=== PATIENT | male | born 1990 ===

== ENCOUNTER 2023-07-10 20:11 | Outpatient (BNV) | payer OTHER, SELFPAY | END 2023-07-30 14:06 | PROVIDERS: Admitting Provider Psychiatry & Neurology Psychiatry; Visit Provider Internal Medicine | DX: I45.89 Other specified conduction disorders (principal) | CPT/HCPCS: 93010 ==

== ENCOUNTER 2023-07-10 20:11 | Inpatient (IN) | payer OTHER, SELFPAY ==
--- NOTE | ~2023-07-10 | US_ITS ---
EXAMINATION: US VENOUS ULTRASOUND WITH DOPPLER LOWER EXTREMITY, LEFT CLINICAL INFORMATION: Swelling/erythema. COMPARISON: None available. TECHNIQUE: Ultrasound of the deep veins is performed from the hip to the calf with compression sonography and color and pulse Doppler assessment. Spectral analysis with color-flow imaging is performed. FINDINGS: There is normal venous compression and respiratory variation and augmented flow. The visualized left common femoral vein, superficial femoral vein, profunda femoral vein, popliteal vein, and the trifurcation region shows no evidence of deep venous thrombosis. There is no significant popliteal fossa cyst. Significantly enlarged lymph nodes in the left inguinal region with thickened cortex, for example a quite large nodule measuring 1.6 x 4.2 cm. If the patient's symptoms persist, followup ultrasound in 5 days 7 days might be of value to exclude proximal propagation from a non-visualized calf vein. US/US venous duplex LE IMPRESSION: 1. No DVT demonstrated in the left lower extremity. 2. Significantly enlarged abnormal lymph nodes in the left inguinal region, nonspecific but most likely infectious/inflammatory in view of patient's age. Recommend clinical correlation to determine if tissue sampling is warranted. Otherwise, short-term follow-up ultrasound is recommended.
--- NOTE | ~2023-07-10 | XR_ITS ---
EXAMINATION: XR foot LT 2V, XR foot RT 2V CLINICAL INFORMATION: Wound right great toe metatarsal phalangeal joint question osteomyelitis, wound left great toe/metatarsal phalangeal joint, question osteomyelitis. COMPARISON: None. TECHNIQUE: 3 view series right foot; 3 view series left foot FINDINGS: Right foot: Soft tissue tissue prominence of the hallux concentric about the interphalangeal joint is noted. No soft tissue emphysematous changes visualized. No arthropathic changes noted. No dystrophic calcifications identified. Normal bone mineralization. A 1 mm curvilinear density is noted in the region of the dorsal aspect of the first distal phalanx which may represent an overlying or embedded foreign body. Left foot: Soft tissue prominence of the hallux is noted. No erosive osseous lesions or soft tissue emphysematous changes noted. No arthropathic changes visualized. No fractures noted. Normal bone mineralization. XR/XR foot LT 2V IMPRESSION: RIGHT FOOT: 1. Soft tissue prominence of the hallux concentric about the interphalangeal joint which may represent a soft tissue inflammatory changes. No soft tissue emphysematous changes or erosive osseous lesions to suggest osteomyelitis. 2. Single 1 mm curvilinear density in the region of the dorsal aspect of the first distal phalanx which may represent an overlying or embedded foreign body. LEFT FOOT: 1. Soft tissue prominence of the hallux which may represent acute inflammatory changes. No evidence of osteomyelitis.
--- NOTE | ~2023-07-10 | XR_ITS ---
EXAMINATION: XR foot LT 2V, XR foot RT 2V CLINICAL INFORMATION: Wound right great toe metatarsal phalangeal joint question osteomyelitis, wound left great toe/metatarsal phalangeal joint, question osteomyelitis. COMPARISON: None. TECHNIQUE: 3 view series right foot; 3 view series left foot FINDINGS: Right foot: Soft tissue tissue prominence of the hallux concentric about the interphalangeal joint is noted. No soft tissue emphysematous changes visualized. No arthropathic changes noted. No dystrophic calcifications identified. Normal bone mineralization. A 1 mm curvilinear density is noted in the region of the dorsal aspect of the first distal phalanx which may represent an overlying or embedded foreign body. Left foot: Soft tissue prominence of the hallux is noted. No erosive osseous lesions or soft tissue emphysematous changes noted. No arthropathic changes visualized. No fractures noted. Normal bone mineralization. XR/XR foot RT 2V IMPRESSION: RIGHT FOOT: 1. Soft tissue prominence of the hallux concentric about the interphalangeal joint which may represent a soft tissue inflammatory changes. No soft tissue emphysematous changes or erosive osseous lesions to suggest osteomyelitis. 2. Single 1 mm curvilinear density in the region of the dorsal aspect of the first distal phalanx which may represent an overlying or embedded foreign body. LEFT FOOT: 1. Soft tissue prominence of the hallux which may represent acute inflammatory changes. No evidence of osteomyelitis.
--- NOTE | ~2023-07-10 | MR_ITS ---
EXAMINATION: MRI WITHOUT CONTRAST FOOT, LEFT CLINICAL INFORMATION: Chronic wound, cellulitis. Evaluate for osteomyelitis. COMPARISON: Radiographs 08/25/2023 TECHNIQUE: MRI without contrast is performed on the left foot FINDINGS: Probable shallow soft tissue ulcers at the dorsal aspect of the great toe overlying the proximal phalanx, and the plantar/medial aspect of the great toe distally with underlying intermediate signal of the subcutaneous fat which may represent chronic cellulitis. No focal fluid collection to indicate an abscess. There is mild marrow edema of the 1st distal phalanx, most prominent at the tuft, where there is also loss of T1 fatty marrow signal which is suspicious for osteomyelitis. There is mild marrow edema at the lateral aspect of the 5th metatarsal head which is more likely degenerative or reactive. Similarly, mild marrow edema at the proximal aspect of the 2nd metatarsal is likely degenerative or stress related. Mild diffuse subcutaneous edema. MR/MR foot LT wo con IMPRESSION: 1. Findings suspicious for osteomyelitis of the 1st distal phalanx, most prominent at the tuft. 2. Probable shallow soft tissue ulcers at the dorsal aspect of the great toe and plantar/medial aspect of the distal great toe with underlying cellulitis. No abscess. 3. Mild marrow edema at the proximal aspect of the 2nd and 5th metatarsals is likely degenerative or stress related.
--- NOTE | ~2023-07-10 | XR_ITS ---
EXAMINATION: XR FOOT, LEFT CLINICAL INFORMATION: Cellulitis and chronic wound. Evaluate for osteomyelitis. COMPARISON: Previous x-ray July 2023 TECHNIQUE: AP, lateral, and oblique views of the left foot. FINDINGS: Bone alignment is normal. No fracture or dislocation. No x-ray evidence of osteomyelitis. Mild degenerative changes of the second MTP joint. Soft tissue swelling of the great toe. XR/XR foot LT 2V IMPRESSION: No x-ray evidence of osteomyelitis. Soft tissue swelling of the great toe. Mild degenerative changes of the second MTP joint.
[2023-07-10 22:00] VITALS: BMI 21.3
[2023-07-11] MEDS: Nicotine Polacrilex 2 MG GUM BUCCAL ×8 (01:10→23:49)
--- NOTE | 2023-07-11 01:12 | PC.ADMIT ---
Patient is a 32 year old single Indonesian speaking male admitted as a Section 12B to M5 at 203907/10/23. Patient was medically cleared at [facility] ED after he presented to the emergency department expressing SI with a plan to jump off a bridge. Patient said he had run out of medication and his depression had increased. According to the assessment patient was noted to be restless, walking around at [facility] ED stating he did not want to live and if he was discharged would carry out his plan of jumping off a bridge. The assessment also mentioned that patient reported he has been inpatient as a psychiatric patient in the past but was unable to provide details. The behavioral health intake noted an APTU admission in 2022 but did not list the date. The patient has a history of substance abuse and is currently on methadone through the [facility]. [facility] ED verified his Methadone. The patient's record did not indicate any other current medications. No medical issues were noted and patient has no allergies. Although patient was offered a CV to sign he declined. Patient was guarded and dismissive during the admission process and did not want to answer questions or sign legals. Safety tool needs to be done and signed and the legals also need to be signed. Dr. Keane aware of admission and orders were put in.
--- NOTE | 2023-07-11 01:24 | W.ED.CONSULT ---
Consult Details Consult Details: I was asked to sign 12b on patient after he arrived from outside facility. patient was previously medically cleared though he refused outside labs so baseline labs were not done. he was accepted here as inpatient psychiatry. I spoke to him about his involuntary status and why he didn't want to sign and he states he didn't want to sign it and that he understood what it meant. He was able to repeat the conversation back to me. GCS 15, no neurological deficits. He was calm and cooperative on the EMS stretcher. 12b was signed by me and placed on the chart
--- NOTE | 2023-07-11 09:38 | P.HPPS_ITS ---
HPI Date of Service: 07/11/23 Chief Complaint: SI Sources of Information: patient interviewed, chart reviewed and crisis/core team assessment reviewed HPI Subjective Notes: Spencer Warning and Conditional Voluntary Healthcare Proxy: No Guardianship: No Medical Problems Affecting Mental Status: No Narrative: Car is a 32-year-old white, single, unemployed man who lives with his mother. He is seen and interviewed the day after his admission. He self presented to the emergency room after encouraged by family members because of suicidal ideations and plans to jump off of a bridge. He was recently hospitalized at [facility] and discharged on gabapentin 400 mg t.i.d., Klonopin 0.5 mg b.i.d. and he is on methadone 85 mg daily. We need to verify these medications. He is a relatively poor historian, not being able to give accurate information with regards to specifics and chronology of events. He has been hospitalized twice previously and then this 1. He has never been on this unit. He does have history of opiate dependence, heroin both snorting and IV use, pills and has been on methadone for a few years but can not say specifically. He gets it at the [facility] methadone clinic. He has had suicide attempts in the past, laying on railroad tracks but changing his mind at the end, several overdoses. He cannot tell me the time and the actual events. He reports auditory hallucinations, paranoid ideations. I could not gather an of reliable information as to whether he has had any hypomanic episodes. Tox screen was clean Past Psychiatric History: Two prior hospitalizations. No outpatient connections. Medical Evaluation Reviewed: Hospitalist Jalynal Pending [facility] Medical History (Updated 07/11/23 @ 09:47 by Abdirahman Page MD) Opiate dependence Narrative: No active disease Substance History: Heroin and opiates, on methadone for several years Trauma History: None reported Diagnostics Vital Signs (24Hr): BMI result Body Mass Index 21.3 Meds/Allergies Allergies Allergies Allergy/AdvReac Type Severity Reaction Status Date / Time No Known Allergies Allergy Verified 07/11/23 00:58 Assessment & Plan Assessment & Plan (1) Schizoaffective disorder, chronic condition: Status: Acute Code(s): F25.9 - Schizoaffective disorder, unspecified Plan In conclusion Car meets criteria for inpatient level of care for safety and stabilization. Current medications will be verified and ordered. He will need with his treatment team on 07/13/2023. Outpatient referrals to be made Patient educated on: diagnosis, medication risk/benefits and substance abuse Reason for continued inpatient stay Substantial Risk for: harm to self and med/psych decompensation Statement Statement: I have reviewed the history and physical and performed a pertinent examination on my patient. No changes have occurred unless specified. If the History and Physical was not performed prior to admission, the Hospitalist's service will be consulted for completing the admission physical. Time Spent With Patient Time: Total time managing care of this patient today ____ minutes.
--- NOTE | 2023-07-11 11:43 | HE.PHANOTE ---
RE METHADONE PATIENT GETS 85 MG FROM [facility], LAST DOSED 07/09. PATIENT ALSO GOT DOSE ON 07/10 FROM [facility]
[2023-07-11] MEDS: clonazePAM 0.5 MG TABLET PO (11:44)
[2023-07-11] MEDS: methADONE HCl 20 MG/2 ML ORAL.CONC 85 MG PO (11:44)
--- NOTE | 2023-07-11 14:33 | HO.PM.IMCN ---
History of Present Illness Data of Consult Service Date: 07/11/23 Requesting physician: Bry Keane Primary Care Provider: Unknown Physician HPI Reason for consult: medical h&p 32-year-old male with history of anxiety, depression, opioid dependence on methadone, peripheral neuropathy, history of IV drug abuse in remission admitted to Psychiatry with consult placed hospitalist service for medical H and P. While in the ED, U tox negative, urinalysis negative. He is reporting painful neuropathy in the feet bilaterally. States last IV drug abuse was about 8 months ago, has been maintaining sobriety with methadone. He also has a wound to the dorsal aspect of the right great toe/MTP joint. He is unable to tell me how long the wound has been present for. There is also a callous on the left great toe. He states he feels like there are maggots in his skin crawling around. He otherwise does not offer much history and states the exam is making him anxious. Review of Systems Review of Systems: General: No fevers, malaise, unintentional weight loss HEENT: No blurred vision, diplopia. No sore throat, nasal congestion, rhinorrhea, sinus pain, ear pain Cardiovascular: No chest pain, palpitations, or leg edema Respiratory: No shortness of breath, wheezing, cough GI: No abdominal pain, nausea, vomiting, diarrhea, constipation, melena, hematochezia : No dysuria, hematuria, increased urinary frequency, decreased urinary output MSK: No myalgia, back pain Neuro: No headaches, weakness, paresthesias Skin: No rashes. +wounds b/l feet PMFSH Medical History (Updated 07/11/23 @ 14:44 by JERRELL Griffiths) Peripheral neuropathy History of intravenous drug abuse Opiate dependence Social History Household Members: Unknown / Unable to assess Housing: Unknown / Unable to assess Do you presently have visiting nurse or other home services: No Unable to assess alcohol history related to: Refusing to respond Patient Tobacco Use Status: Current everyday Tobacco user Tobacco use type: Cigarette Cigarette Packs Per Day: 1 Cigarettes Per Day: 20.0 Years Smoked: 15 Smoked in Last 30 Days: Yes Patient Interested in Nicotine Replacement: Yes Patient Given Instructions on How to Stop Smoking: Yes Date Education Initiated: 07/10/23 Second Hand Smoke Exposure: No Use of substances other than those prescribed or required for medical reasons: Refusing to respond Last Used Substance Other:: pt is currently on Methadone Currently Displaying Signs/Symptoms of Drug Intoxication Withdrawal: No Any prior treatment program specific to substance use: Yes (per patient assessment) Spiritual Healthcare Practices: unknown Zoroastrianism Healthcare Practices: unknown Cultural Healthcare Practices: unknown Advance Directives: No Advance Directives Information Provided: No Do you have thoughts of harming others: None Do you have a plan to hurt others: No Plan Recently lost weight without trying: No Eating poorly because of decreased appetite: No Nutrition Risks: No Nutritional Risk Meds Allergies Allergy/AdvReac Type Severity Reaction Status Date / Time No Known Allergies Allergy Verified 07/11/23 00:58 Active Medications: Current Medications Acetaminophen (Acetaminophen 325 Mg Tablet) 650 mg PO Q6H PRN PRN Reason: Headache/Pain Mild Scale (1-3) Al Hydroxide/Mg Hydroxide (Magnesium Hydrox/Alum Hydrox 30 Ml Oral.Susp) 30 ml PO Q6H PRN PRN Reason: Heartburn/Nausea Clonazepam (Clonazepam 0.5 Mg Tablet) 0.5 mg PO DAILY [facility] Last Admin: 07/11/23 11:44 Dose: 0.5 mg Gabapentin (Gabapentin 400 Mg Capsule) 400 mg PO TID [facility] Hydroxyzine HCl (Hydroxyzine Hcl 25 Mg Tablet) 25 mg PO Q6H PRN PRN Reason: Anxiety Magnesium Hydroxide (Milk Of Magnesia 30 Ml Oral.Susp) 30 ml PO DAILY PRN PRN Reason: Constipation Melatonin (Melatonin 3 Mg Tablet) 6 mg PO BEDTIME PRN PRN Reason: Insomnia Methadone HCl (Methadone Hcl 20 Mg/2 Ml Oral.Conc) 85 mg PO DAILY ONE Stop: 07/12/23 08:01 Nicotine Polacrilex (Nicotine Polacrilex 2 Mg Gum) 2 mg BUCCAL Q2H PRN PRN Reason: Nicotine Cravings Last Admin: 07/11/23 13:53 Dose: 2 mg Trazodone HCl (Trazodone Hcl 50 Mg Tablet) 50 mg PO BEDTIME MRX1 PRN PRN Reason: Insomnia Home Medications Medication Instructions Recorded Confirmed Last Taken Type clonazepam 0.5 mg tablet (Klonopin) 0.5 mg PO DAILY 07/11/23 07/11/23 Unknown History gabapentin 400 mg capsule 400 mg PO TID 07/11/23 07/11/23 Unknown History melatonin 5 mg tablet 5 mg PO BEDTIME 07/11/23 07/11/23 Unknown History Physical Exam Vital Signs and Narrative: Vital Signs: BMI result Body Mass Index 21.3 Constitutional - Awake and Alert, No apparent distress Eyes - PERRLA, EOMI Cardiovascular - S1S2, RRR, No edema Respiratory - Normal lung expansion, Normal respiratory effort, No respiratory distress, CTA bilaterally Gastrointestinal - NT / ND; +BS; No rebound or guarding Extremities - no calf tenderness bilaterally, no swelling Musculoskeletal - Normal inspection, normal ROM Skin - Warm/Dry. R foot- stage 2 ulcer dorsal aspect right great toe/mtp with surrounding erythema and warmth. No fluctuance, purulent drainage, necrosis. Callous left great toe Neurological - Alert & oriented x3, CN II-XII in tact, 12/05 strength BUE and BLE Assessment and Plan (1) Routine medical exam: Status: Acute (2) Cellulitis of great toe, left: Status: Acute (3) Skin ulcer of left great toe: Status: Acute Plan 32-year-old male with history of anxiety, depression, opioid dependence on methadone, peripheral neuropathy, history of IV drug abuse in remission admitted to Psychiatry with consult placed hospitalist service for medical H and P. 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 Will continue following for results. Please do not hesitate to call for further questions or for any acute medical issues.
[2023-07-11] MEDS: Gabapentin 400 MG CAPSULE PO ×2 (15:18→20:15)
[2023-07-11] MEDS: Doxycycline Monohydrate 100 MG CAPSULE PO (15:18)
[2023-07-11] MEDS: Amoxicillin/Potassium Clav 875 MG TABLET PO (16:38)
--- NOTE | 2023-07-11 18:15 | PC.NURSE ---
Phlebotomy came to the unit twice and Car refused to have labs drawn both times.
[2023-07-12 08:39] VITALS: BP 127/63; PULSE 105; TEMP 36.5; O2SAT 100
[2023-07-12] MEDS: methADONE HCl 20 MG/2 ML ORAL.CONC 85 MG PO (08:46)
[2023-07-12] MEDS: Gabapentin 400 MG CAPSULE PO ×3 (08:47→20:53)
[2023-07-12] MEDS: Amoxicillin/Potassium Clav 875 MG TABLET PO ×2 (08:47→20:53)
[2023-07-12] MEDS: clonazePAM 0.5 MG TABLET PO (08:47)
[2023-07-12] MEDS: Doxycycline Monohydrate 100 MG CAPSULE PO ×2 (08:47→20:54)
[2023-07-12] MEDS: Nicotine Polacrilex 2 MG GUM BUCCAL ×8 (08:47→23:18)
--- NOTE | 2023-07-12 10:06 | HO.PSYCHPN ---
Subjective Subjective Date of Service: 07/12/23 Reason For Visit: SI Subjective Notes: Conditional Voluntary Healthcare Proxy: No Guardianship: No Medical Problems Affecting Mental Status: No Interim History: Patient was seen and discussed in rounds today. Records and plans were reviewed. He has settled in well and has been doing better. Eating and sleeping adequately. He is medication compliant. He denies any side effects. No SI. No changes were made today Medication Compliance: Yes Side effects from medications: No Attending Groups: Yes Review of Systems Review of Systems Yes all other systems are reviewed and are negative Mental Status Exam Mental Status Exam Narrative: In today's visit he is alert, oriented and pleasant. Normal speech. Good eye contact. Affect is appropriate and constricted. No auditory or visual hallucinations. No delusions. He denies any SI. Cognitively is intact. Judgment is intact Diagnostics Vital Signs (24Hr): Vital Signs - 24 hr 07/12/23 08:39 Temperature 97.7 F Pulse Rate 105 H Blood Pressure 127/63 Pulse Oximetry 100 Oxygen Delivery Method Room Air BMI result Body Mass Index 21.3 Imaging Radiology Impressions: ITS Impressions Foot X-Ray 07/11/23 16:21 IMPRESSION: RIGHT FOOT: 1. Soft tissue prominence of the hallux concentric about the interphalangeal joint which may represent a soft tissue inflammatory changes. No soft tissue emphysematous changes or erosive osseous lesions to suggest osteomyelitis. 2. Single 1 mm curvilinear density in the region of the dorsal aspect of the first distal phalanx which may represent an overlying or embedded foreign body. LEFT FOOT: 1. Soft tissue prominence of the hallux which may represent acute inflammatory changes. No evidence of osteomyelitis. Foot X-Ray 07/11/23 16:21 IMPRESSION: RIGHT FOOT: 1. Soft tissue prominence of the hallux concentric about the interphalangeal joint which may represent a soft tissue inflammatory changes. No soft tissue emphysematous changes or erosive osseous lesions to suggest osteomyelitis. 2. Single 1 mm curvilinear density in the region of the dorsal aspect of the first distal phalanx which may represent an overlying or embedded foreign body. LEFT FOOT: 1. Soft tissue prominence of the hallux which may represent acute inflammatory changes. No evidence of osteomyelitis. Medications Medications Current Medications Acetaminophen (Acetaminophen 325 Mg Tablet) 650 mg PO Q6H PRN PRN Reason: Headache/Pain Mild Scale (1-3) Al Hydroxide/Mg Hydroxide (Magnesium Hydrox/Alum Hydrox 30 Ml Oral.Susp) 30 ml PO Q6H PRN PRN Reason: Heartburn/Nausea Amoxicillin/Clavulanate Potassium (Amoxicillin/Potassium Clav 875 Mg Tablet) 875 mg PO Q12H [facility] Last Admin: 07/12/23 08:47 Dose: 875 mg Clonazepam (Clonazepam 0.5 Mg Tablet) 0.5 mg PO DAILY [facility] Last Admin: 07/12/23 08:47 Dose: 0.5 mg Doxycycline Monohydrate (Doxycycline Monohydrate 100 Mg Capsule) 100 mg PO Q12H [facility] Last Admin: 07/12/23 08:47 Dose: 100 mg Gabapentin (Gabapentin 400 Mg Capsule) 400 mg PO TID [facility] Last Admin: 07/12/23 08:47 Dose: 400 mg Hydroxyzine HCl (Hydroxyzine Hcl 25 Mg Tablet) 25 mg PO Q6H PRN PRN Reason: Anxiety Magnesium Hydroxide (Milk Of Magnesia 30 Ml Oral.Susp) 30 ml PO DAILY PRN PRN Reason: Constipation Melatonin (Melatonin 3 Mg Tablet) 6 mg PO BEDTIME PRN PRN Reason: Insomnia Nicotine Polacrilex (Nicotine Polacrilex 2 Mg Gum) 2 mg BUCCAL Q2H PRN PRN Reason: Nicotine Cravings Last Admin: 07/12/23 08:47 Dose: 2 mg Trazodone HCl (Trazodone Hcl 50 Mg Tablet) 50 mg PO BEDTIME MRX1 PRN PRN Reason: Insomnia Allergies Allergies Allergy/AdvReac Type Severity Reaction Status Date / Time No Known Allergies Allergy Verified 07/11/23 00:58 Assessment & Plan Assessment & Plan (1) Routine medical exam: Status: Acute Code(s): Z00.00 - Encounter for general adult medical examination without abnormal findings (2) Cellulitis of great toe, left: Status: Acute Code(s): L03.032 - Cellulitis of left toe (3) Skin ulcer of left great toe: Status: Acute Code(s): L97.529 - Non-pressure chronic ulcer of other part of left foot with unspecified severity Plan 32-year-old male with history of anxiety, depression, opioid dependence on methadone, peripheral neuropathy, history of IV drug abuse in remission admitted to Psychiatry with consult placed hospitalist service for medical H and P. #Mood/psychotic d/o -plan per psychiatry #Stage 2 non-pressure ulcer R great toe with cellulitis -XRay left foot ordered to r/o osteomyelitis -CRP, ESR, CBC ordered -Augmentin 875mg BID and doxycycline 100mg BID x 1 week -still operator whiskey consult -Dressing changes as ordered #Callous R Great toe -check xr left foot r/o osteomyelitis- low suspicion -medical assistant internal medicine #opioid dependence -continue methadone #peripheral neuropathy -continue gabapentin Thank you for allowing me to participate in this consult. Will continue following for results. Please do not hesitate to call for further questions or for any acute medical issues. 07/12: Continue current regimen plans. Reason for continued inpatient stay Substantial Risk for: med/psych decompensation Time Spent With Patient Time: Total time managing care of this patient today ____ minutes.
--- NOTE | 2023-07-12 11:56 | PC.NURSE ---
Car refused lab draw x4 and was given education related to lab draw.
[2023-07-12 18:00] VITALS: BP 102/68; PULSE 101; TEMP 36.4; O2SAT 97
[2023-07-13] MEDS: Nicotine Polacrilex 2 MG GUM BUCCAL ×7 (04:23→21:36)
[2023-07-13 08:30] VITALS: BP 104/70; PULSE 110; RESP 18; TEMP 36.4; O2SAT 98
[2023-07-13] MEDS: Gabapentin 400 MG CAPSULE PO ×3 (09:03→21:35)
[2023-07-13] MEDS: clonazePAM 0.5 MG TABLET PO (09:03)
[2023-07-13] MEDS: Amoxicillin/Potassium Clav 875 MG TABLET PO ×2 (09:03→21:35)
[2023-07-13] MEDS: Doxycycline Monohydrate 100 MG CAPSULE PO ×2 (09:03→21:35)
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
[2023-07-13] MEDS: methADONE HCl 20 MG/2 ML ORAL.CONC 85 MG PO (10:02)
--- NOTE | 2023-07-13 12:45 | PC.NURSE ---
Addendum entered by Cece Grissom RN 07/13/23 12:48: Recommending Durafiber silver - changed from zeroform petroleum due to moisture presence.- Supplies are in PT specific bin in Med room. Addendum entered by Cece Grissom RN 07/13/23 12:46: early head start director saw pt and evaluated and redressed his wounds. Recommending Kirsten Original Note: early head start director saw patient and evaluated and redressed his wounds. Reccome
--- NOTE | 2023-07-13 13:32 | HO.WOUND ---
Wound Consult: Initial 32yr old male admitted to [facility] on?07/10/23 20:11 to the Inpatient Behavioral Health Unit - See progress notes and H&P for detailed history. Wound consult placed for Left Great Toe wound and Right Great Toe. Patient is agreeable to assessment and photo documentation. He reports he is unclear as to how the wounds originated but reports he believes wearing the same shoes and not being able to take care of them is impacting wound development. The patient reports neuropathy to both feet at times. At time of discharge consider referral to outpt wound clinic and or Podiatry. Left Great Toe wound Left Great Toe - Posterior Wound Right Great Toe Callus Left Great Toe Etiology: Neuropathic Wound Measurements: Dorsal Wound - 1.5cm x 1cm x 0.1cm - pink moist partial thickness tissue loss - dried drainage noted to periwound Posterior Wound 0.5cm x 0.3cm x 0.4cm - red moist wound bed - dried drainage to periwound along with callused edges Drainage / Odor: dried serosang drainage - no purulence noted - no odor noted Edges: ?well defined Natalie wound: ?Callused wound edge - No Induration, Fluctuance or Warmth noted Pain: Pt reports mild tenderness - reports neuropathy - refer to Outpt Wound Clinic or Podiatry at time of Discharge Goals of Treatment: ? Moisture Management with Durafiber Right foot assessed - no injury noted - great toe medial side with callus - no fluctuance noted no erythema no warmth noted - No topical interventions needed at this time. consider Podiatry referral at time of discharge for nail care and callus management. Recommendations: 1. Turn and Reposition every 2 hours and as needed for patient comfort. 2. Off Load all bony prominences with use of pillows and heel boots if needed.? Apply Preventative foams where needed. ? 3. Monitor for incontinence and moisture control, use barrier creams when needed for prevention and treatment. 4. Provide adequate and supplemental nutrition. 5. Order or Continue low air loss mattress. 6. Left Great Toe - Cleanse with NS, pat dry. Apply Skin Prep barrier wipe to periwound - cover wound beds with Alginate AG (Durafiber AG), cover with foam dressing. Change Daily. Re-consult wound care Nurse for wound deterioration or wound changes.
[2023-07-13 18:00] VITALS: BP 112/78; PULSE 100; RESP 20; TEMP 36.6; O2SAT 99
[2023-07-13] MEDS: Nicotine Polacrilex 2 MG GUM 4 MG BUCCAL (23:06)
[2023-07-14] MEDS: Nicotine Polacrilex 2 MG GUM BUCCAL (08:28)
[2023-07-14] MEDS: clonazePAM 0.5 MG TABLET PO (08:28)
[2023-07-14] MEDS: Gabapentin 400 MG CAPSULE PO ×3 (08:28→21:13)
[2023-07-14] MEDS: Doxycycline Monohydrate 100 MG CAPSULE PO ×2 (08:28→21:13)
[2023-07-14] MEDS: Amoxicillin/Potassium Clav 875 MG TABLET PO ×2 (08:29→21:13)
[2023-07-14] MEDS: methADONE HCl 20 MG/2 ML ORAL.CONC 85 MG PO (08:29)
[2023-07-14 08:33] VITALS: BP 112/74; PULSE 101; RESP 18; TEMP 36.6; O2SAT 98
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
[2023-07-14] MEDS: Nicotine Polacrilex 2 MG GUM 4 MG BUCCAL ×4 (13:40→22:33)
[2023-07-15] MEDS: Amoxicillin/Potassium Clav 875 MG TABLET PO ×2 (08:07→20:50)
[2023-07-15] MEDS: Gabapentin 400 MG CAPSULE PO ×3 (08:07→20:50)
[2023-07-15] MEDS: clonazePAM 0.5 MG TABLET PO (08:07)
[2023-07-15] MEDS: Doxycycline Monohydrate 100 MG CAPSULE PO ×2 (08:07→20:50)
[2023-07-15] MEDS: methADONE HCl 20 MG/2 ML ORAL.CONC 85 MG PO (08:08)
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
[2023-07-15] MEDS: Nicotine Polacrilex 2 MG GUM 4 MG BUCCAL ×5 (10:43→20:50)
[2023-07-16 07:00] VITALS: BMI 20.4
[2023-07-16] MEDS: Nicotine Polacrilex 2 MG GUM 4 MG BUCCAL ×6 (07:50→22:52)
[2023-07-16] MEDS: methADONE HCl 20 MG/2 ML ORAL.CONC 85 MG PO (08:22)
[2023-07-16] MEDS: Gabapentin 400 MG CAPSULE PO ×3 (08:22→22:47)
[2023-07-16] MEDS: Doxycycline Monohydrate 100 MG CAPSULE PO ×2 (08:22→22:47)
[2023-07-16] MEDS: Amoxicillin/Potassium Clav 875 MG TABLET PO ×2 (08:22→22:47)
[2023-07-16] MEDS: clonazePAM 0.5 MG TABLET PO ×3 (08:22→20:27)
[2023-07-16 08:40] VITALS: RESP 16
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
--- NOTE | 2023-07-16 13:39 | HO.WOUND ---
Wound Consult: Follow up 32yr old male admitted to [facility] on?07/10/23 20:11 to the Inpatient Behavioral Health Unit - See progress notes and H&P for detailed history. Follow up wound request from Dr. Dey for assessment secondary to direct care team wound concerns. Direct care team reported darkening of wound bed . Original Wound consult placed for Left Great Toe wound and Right Great Toe. Patient is agreeable to assessment and photo documentation. He reports he is unclear as to how the wounds originated but reports he believes wearing the same shoes and not being able to take care of them is impacting wound development. The patient reports neuropathy to both feet at times. At time of discharge consider referral to outpt wound clinic and or Podiatry. Left Great Toe wound 07/13/23 Left great toe wound 07/16/ Left Great Toe - Posterior Wound 07/13/23 Left Great Toe - Posterior Wound 07/16/23 Right Great Toe Callus 07/13/23 Right Great Toe Callus 07/16/23 Right Great toe unchanged - no topical interventions needed at this time. Continue to recommend Podiatry follow up outpatient for callus removal. Pt demonstrated understanding. Left Great Toe Etiology: Neuropathic Wound Measurements: Dorsal Wound - 1.5cm x 1cm x 0.1cm - red pink moist partial thickness tissue loss wound bed appears improved viability - periwound remains blanchable erythema decrease in swelling noted. Posterior Wound 0.6cm x 0.4cm x 0.4cm - pink moist wound bed - macerated edges and callused edges Drainage / Odor: serosang drainage - no purulence noted - no odor noted Edges: ?well defined Natalie wound: ?Callused wound edge - No Induration, Fluctuance or Warmth noted Pain: Pt reports mild tenderness - reports neuropathy - refer to Outpt Wound Clinic or Podiatry at time of Discharge Goals of Treatment: ? Moisture Management with Durafiber - Pt and direct care team unsure of previous staff concerns - considering posterior wound site alginate was packed tightly into wound bed requiring NS to soften and remove that may have been observed as the darkened wound bed. Periwound is noted for maceration. No new topical recommendations needed at this time - continue to pack with alginate and follow up with podiatry and or wound clinic outpt. Recommendations: 1. Turn and Reposition every 2 hours and as needed for patient comfort. 2. Off Load all bony prominences with use of pillows and heel boots if needed.? Apply Preventative foams where needed. ? 3. Monitor for incontinence and moisture control, use barrier creams when needed for prevention and treatment. 4. Provide adequate and supplemental nutrition. 5. Order or Continue low air loss mattress. 6. Left Great Toe (Dorsal and Posterior Wounds) - Cleanse with NS, pat dry. Apply Skin Prep barrier wipe to periwound - cover wound beds with Alginate AG (Durafiber AG), (Lightly pack posterior wound bed) cover with foam dressing. Change Daily. Be sure to remove alginate packing to posterior wound - may need to be moistened prior to removal. Re-consult wound care Nurse for wound deterioration or wound changes.
[2023-07-16] MEDS: Ondansetron ODT 4 MG TAB.RAPDIS TRANSLINGU (22:47)
[2023-07-16] MEDS: OLANZapine 5 MG TABLET PO (22:48)
--- NOTE | 2023-07-16 22:59 | PC.NURSE ---
Pt was making sexual comments to staff. staff was passing out trays and pt stated you are very pretty, and that ass tho . pt was also asking for coffee later on in the shift and another staff member told the pt ill be with you in one second and the pt said i wasnt talking to you, i was talking to her . pt then went to art for the first time, and this staff member was running it, and he sat down and looked at the this staff member and said can i touch you i said no thank you and he proceeded to say I want to touch your tattoos . I then said again no thank you. pt just sat there looking at me smiling and then i felt uncomfortable and ended group 5 mins early. later on into shift this staff member was on the board and the pt kept walking by smiling and winking and saying yina barros .
[2023-07-17 06:00] VITALS: RESP 18
[2023-07-17] MEDS: methADONE HCl 20 MG/2 ML ORAL.CONC 85 MG PO (08:31)
[2023-07-17] MEDS: Gabapentin 400 MG CAPSULE PO ×3 (08:33→23:44)
[2023-07-17] MEDS: Nicotine Polacrilex 2 MG GUM 4 MG BUCCAL ×5 (08:34→23:22)
[2023-07-17] MEDS: clonazePAM 0.5 MG TABLET PO ×3 (08:34→23:45)
[2023-07-17] MEDS: Ondansetron ODT 4 MG TAB.RAPDIS TRANSLINGU (08:34)
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
[2023-07-18 06:00] VITALS: RESP 18
[2023-07-18] MEDS: Nicotine Polacrilex 2 MG GUM 4 MG BUCCAL ×6 (08:09→20:16)
[2023-07-18] MEDS: Gabapentin 400 MG CAPSULE PO ×3 (08:10→20:16)
[2023-07-18] MEDS: methADONE HCl 20 MG/2 ML ORAL.CONC 85 MG PO (08:10)
[2023-07-18] MEDS: clonazePAM 0.5 MG TABLET PO ×3 (08:10→20:16)
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
[2023-07-18 16:15] VITALS: BP 109/55; PULSE 65; TEMP 36.6; O2SAT 96
[2023-07-18] MEDS: OLANZapine 10 MG TABLET PO (20:16)
[2023-07-19] MEDS: Nicotine Polacrilex 2 MG GUM 4 MG BUCCAL ×5 (04:33→21:09)
[2023-07-19 06:00] VITALS: RESP 18
[2023-07-19] MEDS: Gabapentin 400 MG CAPSULE PO ×3 (08:26→20:25)
[2023-07-19] MEDS: methADONE HCl 20 MG/2 ML ORAL.CONC 85 MG PO (08:26)
[2023-07-19] MEDS: clonazePAM 0.5 MG TABLET PO ×3 (08:26→20:25)
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
[2023-07-19] MEDS: Nicotine Polacrilex 2 MG GUM BUCCAL ×2 (13:51→21:09)
[2023-07-19] MEDS: OLANZapine 7.5 MG TABLET 15 MG PO (20:25)
[2023-07-19] MEDS: Melatonin 3 MG TABLET PO (20:25)
[2023-07-20] MEDS: Nicotine Polacrilex 2 MG GUM BUCCAL (00:06)
[2023-07-20] MEDS: Gabapentin 400 MG CAPSULE PO ×3 (08:15→21:23)
[2023-07-20] MEDS: methADONE HCl 20 MG/2 ML ORAL.CONC 85 MG PO (08:15)
[2023-07-20] MEDS: clonazePAM 0.5 MG TABLET PO ×3 (08:15→21:23)
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
[2023-07-20] MEDS: Nicotine Polacrilex 2 MG GUM 4 MG BUCCAL ×3 (12:20→21:52)
--- NOTE | 2023-07-20 18:04 | PC.NURSE ---
At 1710, pt stood very close to a female staff member and winked at her. Pt was redirected to respect pt's personal space. Pt stated, Who's winking? What, is she your girl or something? At 1715, pt stood behind a different staff member and clapped his hands inches from the staff member's ear. Pt was again instructed to respect personal space. Pt appeared to have low insight. Pt stated, What's the matter? Are you scared?
[2023-07-20] MEDS: OLANZapine 10 MG TABLET 20 MG PO (21:23)
[2023-07-21] MEDS: Nicotine Polacrilex 2 MG GUM BUCCAL (01:32)
[2023-07-21] MEDS: Nicotine Polacrilex 2 MG GUM 4 MG BUCCAL ×6 (04:25→17:23)
[2023-07-21] MEDS: Gabapentin 400 MG CAPSULE PO ×3 (08:00→20:46)
[2023-07-21] MEDS: methADONE HCl 20 MG/2 ML ORAL.CONC 85 MG PO (08:01)
[2023-07-21] MEDS: clonazePAM 0.5 MG TABLET PO ×3 (08:01→20:47)
[2023-07-21 08:40] VITALS: BP 116/64; PULSE 63; RESP 18; TEMP 36.9; O2SAT 98
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
[2023-07-21] MEDS: OLANZapine 10 MG TABLET 20 MG PO (20:46)
[2023-07-22] MEDS: Gabapentin 400 MG CAPSULE PO ×3 (08:57→21:11)
[2023-07-22] MEDS: methADONE HCl 20 MG/2 ML ORAL.CONC 85 MG PO (08:57)
[2023-07-22] MEDS: clonazePAM 0.5 MG TABLET PO ×3 (08:57→21:11)
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
[2023-07-22] MEDS: Nicotine Polacrilex 2 MG GUM 4 MG BUCCAL ×3 (12:36→21:12)
[2023-07-22] MEDS: OLANZapine 10 MG TABLET 20 MG PO (21:11)
[2023-07-23] MEDS: Nicotine Polacrilex 2 MG GUM 4 MG BUCCAL ×6 (00:04→18:07)
[2023-07-23] MEDS: Nicotine Polacrilex 2 MG GUM BUCCAL (06:51)
[2023-07-23] MEDS: Gabapentin 400 MG CAPSULE PO ×3 (08:17→20:08)
[2023-07-23] MEDS: methADONE HCl 20 MG/2 ML ORAL.CONC 85 MG PO (08:17)
[2023-07-23] MEDS: clonazePAM 0.5 MG TABLET PO ×3 (08:17→20:08)
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
--- NOTE | 2023-07-23 10:28 | HO.WOUND ---
Wound Consult: Follow up 32yr old male admitted to [facility] on?07/10/23 20:11 to the Inpatient Behavioral Health Unit - See progress notes and H&P for detailed history. Follow up wound assessment. Patient is agreeable to assessment and photo documentation. He reports he is unclear as to how the wounds originated but reports he believes wearing the same shoes and not being able to take care of them is impacting wound development. The patient reports neuropathy to both feet at times. At time of discharge consider referral to outpt wound clinic and or Podiatry for nail care. Left Great Toe wound 07/13/23 Left great toe wound 07/16/23 Left great toe wound 07/23/23 Left Great Toe - Posterior Wound 07/13/23 Left Great Toe - Posterior Wound 07/16/23 Left Great Toe - Posterior Wound 07/23/23 Right Great toe unchanged - no topical interventions needed at this time. Continue to recommend Podiatry follow up outpatient for callus removal. Left Great Toe Etiology: Neuropathic Wound Measurements: Dorsal Wound - Significant decrease in size noted 0.8cm x 0.6cm x 0.1cm - red pink moist partial thickness tissue loss wound bed appears improved viability - periwound remains blanchable erythema no swelling noted. Posterior Wound - 0.5cm x 0.4cm x 0.4cm - pink red moist wound bed - macerated edges and callused edges Drainage / Odor: serosang drainage - no purulence noted - mild odor noted Edges: ?well defined Natalie wound: ?Callused wound edge - No Induration, Fluctuance or Warmth noted Pain: Pt denies pain and tenderness - reports neuropathy - refer to Outpt Wound Clinic or Podiatry at time of Discharge Goals of Treatment: ? Moisture Management with Durafiber -. No new topical recommendations needed at this time - continue to pack with alginate and follow up with podiatry and or wound clinic outpt. Recommendations: 1. Provide adequate and supplemental nutrition. 2. Left Great Toe (Dorsal and Posterior Wounds) - Cleanse with NS, pat dry. Apply Skin Prep barrier wipe to periwound - cover wound beds with Alginate AG (Durafiber AG), (Lightly pack posterior wound bed) cover with foam dressing, consider dry gauze dressing to posterior wound as foam may be donating some moisture to periwound. Change Daily. Be sure to remove alginate packing to posterior wound - may need to be moistened prior to removal. Re-consult wound care Nurse for wound deterioration or wound changes.
[2023-07-23] MEDS: OLANZapine ODT 10 MG TAB.RAPDIS 30 MG TRANSLINGU (20:08)
[2023-07-24] MEDS: Nicotine Polacrilex 2 MG GUM 4 MG BUCCAL ×6 (02:48→21:51)
[2023-07-24 06:00] VITALS: RESP 18
[2023-07-24] MEDS: clonazePAM 0.5 MG TABLET PO ×3 (08:36→20:32)
[2023-07-24] MEDS: Gabapentin 400 MG CAPSULE PO ×3 (08:36→20:32)
[2023-07-24] MEDS: methADONE HCl 20 MG/2 ML ORAL.CONC 85 MG PO (08:36)
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
[2023-07-24 18:00] VITALS: TEMP -17.7; TEMP 0
[2023-07-24] MEDS: OLANZapine ODT 10 MG TAB.RAPDIS 30 MG TRANSLINGU (21:49)
[2023-07-24] MEDS: Melatonin 3 MG TABLET PO (21:49)
[2023-07-25] MEDS: Nicotine Polacrilex 2 MG GUM 4 MG BUCCAL ×3 (00:32→20:30)
[2023-07-25] MEDS: Gabapentin 400 MG CAPSULE PO ×3 (07:55→20:28)
[2023-07-25] MEDS: methADONE HCl 20 MG/2 ML ORAL.CONC 85 MG PO (07:55)
[2023-07-25] MEDS: clonazePAM 0.5 MG TABLET PO ×3 (07:55→20:28)
[2023-07-25 08:17] VITALS: RESP 16
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
--- NOTE | 2023-07-25 20:33 | PC.NURSE ---
assumed care of pt at 19:30, pacing halls, in no apparent distress, appears to be responding to internal stimuli.
--- NOTE | 2023-07-25 21:48 | PC.NURSE ---
PT reports bandage applied today, would not show this adjusto writer operator.
[2023-07-26] MEDS: methADONE HCl 20 MG/2 ML ORAL.CONC 85 MG PO (08:20)
[2023-07-26] MEDS: Gabapentin 400 MG CAPSULE PO ×3 (08:20→20:42)
[2023-07-26] MEDS: clonazePAM 0.5 MG TABLET PO ×3 (08:20→20:42)
[2023-07-26] MEDS: Nicotine Polacrilex 2 MG GUM 4 MG BUCCAL ×5 (08:20→20:40)
[2023-07-26 19:53] VITALS: RESP 16
[2023-07-26] MEDS: OLANZapine ODT 10 MG TAB.RAPDIS 30 MG TRANSLINGU (22:35)
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
[2023-07-27 06:00] VITALS: RESP 16
[2023-07-27] MEDS: Nicotine Polacrilex 2 MG GUM 4 MG BUCCAL ×5 (06:00→22:46)
[2023-07-27] MEDS: Gabapentin 400 MG CAPSULE PO ×3 (08:48→22:46)
[2023-07-27] MEDS: clonazePAM 0.5 MG TABLET PO ×3 (08:48→20:11)
[2023-07-27] MEDS: methADONE HCl 20 MG/2 ML ORAL.CONC 85 MG PO (08:48)
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
[2023-07-27] MEDS: Nicotine Polacrilex 2 MG GUM BUCCAL (18:01)
[2023-07-27] MEDS: OLANZapine ODT 10 MG TAB.RAPDIS 30 MG TRANSLINGU (22:46)
[2023-07-28] MEDS: Nicotine Polacrilex 2 MG GUM 4 MG BUCCAL ×5 (09:47→21:45)
[2023-07-28] MEDS: Gabapentin 400 MG CAPSULE PO ×3 (09:47→21:42)
[2023-07-28] MEDS: clonazePAM 0.5 MG TABLET PO ×3 (09:47→21:43)
[2023-07-28] MEDS: methADONE HCl 20 MG/2 ML ORAL.CONC 85 MG PO (09:47)
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
[2023-07-28] MEDS: OLANZapine ODT 10 MG TAB.RAPDIS 30 MG TRANSLINGU (21:45)
[2023-07-29 06:00] VITALS: RESP 18
[2023-07-29] MEDS: clonazePAM 0.5 MG TABLET PO ×3 (08:05→19:59)
[2023-07-29] MEDS: Gabapentin 400 MG CAPSULE PO ×3 (08:05→19:59)
[2023-07-29] MEDS: Nicotine Polacrilex 2 MG GUM 4 MG BUCCAL ×4 (08:05→20:00)
[2023-07-29] MEDS: methADONE HCl 20 MG/2 ML ORAL.CONC 85 MG PO (08:05)
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
[2023-07-29] MEDS: OLANZapine ODT 10 MG TAB.RAPDIS 30 MG TRANSLINGU (22:18)
[2023-07-29] MEDS: Nicotine Polacrilex 2 MG GUM BUCCAL (22:23)
--- NOTE | 2023-07-30 | ECG_ITS ---
Test Reason : qtc check Blood Pressure : / mmHG Vent. Rate : 079 BPM Atrial Rate : 079 BPM P-R Int : 166 ms QRS Dur : 100 ms QT Int : 388 ms P-R-T Axes : 068 078 053 degrees QTc Int : 444 ms Normal sinus rhythm Normal ECG No previous ECGs available Referred By: Geronimo Dey Electronically Signed By:GAURAV MEDEROS
[2023-07-30] MEDS: Nicotine Polacrilex 2 MG GUM 4 MG BUCCAL ×7 (01:09→17:30)
[2023-07-30 06:00] VITALS: RESP 18
[2023-07-30] MEDS: Nicotine Polacrilex 2 MG GUM BUCCAL (06:34)
[2023-07-30 07:00] VITALS: BMI 21.9
[2023-07-30] MEDS: methADONE HCl 20 MG/2 ML ORAL.CONC 85 MG PO (08:15)
[2023-07-30] MEDS: clonazePAM 0.5 MG TABLET PO ×3 (08:15→20:02)
[2023-07-30] MEDS: Gabapentin 400 MG CAPSULE PO ×3 (08:15→20:00)
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
[2023-07-30] MEDS: Ziprasidone 20 MG CAPSULE PO ×2 (14:01→17:29)
[2023-07-30] MEDS: OLANZapine ODT 10 MG TAB.RAPDIS 20 MG TRANSLINGU (20:01)
[2023-07-31 06:00] VITALS: RESP 18
[2023-07-31] MEDS: clonazePAM 0.5 MG TABLET PO ×3 (09:25→20:59)
[2023-07-31] MEDS: Nicotine Polacrilex 2 MG GUM 4 MG BUCCAL ×6 (09:25→20:59)
[2023-07-31] MEDS: Ziprasidone 20 MG CAPSULE PO ×2 (09:25→18:42)
[2023-07-31] MEDS: methADONE HCl 20 MG/2 ML ORAL.CONC 85 MG PO (09:25)
[2023-07-31] MEDS: Gabapentin 400 MG CAPSULE PO ×3 (09:25→20:58)
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
[2023-08-01] MEDS: Nicotine Polacrilex 2 MG GUM 4 MG BUCCAL ×6 (02:19→21:29)
[2023-08-01 06:00] VITALS: RESP 18
[2023-08-01] MEDS: Gabapentin 400 MG CAPSULE PO ×3 (08:16→21:21)
[2023-08-01] MEDS: clonazePAM 0.5 MG TABLET PO ×3 (08:16→21:21)
[2023-08-01] MEDS: Ziprasidone 20 MG CAPSULE PO ×2 (08:16→18:05)
[2023-08-01] MEDS: methADONE HCl 20 MG/2 ML ORAL.CONC 85 MG PO (08:16)
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
[2023-08-02] MEDS: Nicotine Polacrilex 2 MG GUM 4 MG BUCCAL ×6 (04:34→23:19)
[2023-08-02 08:09] VITALS: RESP 18
[2023-08-02] MEDS: Ziprasidone 20 MG CAPSULE PO (08:20)
[2023-08-02] MEDS: Gabapentin 400 MG CAPSULE PO ×3 (08:20→19:50)
[2023-08-02] MEDS: clonazePAM 0.5 MG TABLET PO ×3 (08:20→19:49)
[2023-08-02] MEDS: methADONE HCl 20 MG/2 ML ORAL.CONC 85 MG PO (08:21)
[2023-08-02 18:00] VITALS: RESP 16
[2023-08-02] MEDS: Ziprasidone 40 MG CAPSULE PO (18:06)
--- NOTE | 2023-08-02 20:01 | PC.NURSE ---
Patient refused Melatonin and Zyprexa at HS.
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
[2023-08-03] MEDS: Nicotine Polacrilex 2 MG GUM 4 MG BUCCAL ×8 (01:49→23:00)
[2023-08-03 08:00] VITALS: RESP 20
[2023-08-03] MEDS: methADONE HCl 20 MG/2 ML ORAL.CONC 85 MG PO (08:07)
[2023-08-03] MEDS: Gabapentin 400 MG CAPSULE PO ×3 (08:08→19:38)
[2023-08-03] MEDS: clonazePAM 0.5 MG TABLET PO ×3 (08:08→19:38)
[2023-08-03] MEDS: Ziprasidone 40 MG CAPSULE PO ×2 (08:08→17:29)
--- NOTE | 2023-08-03 20:30 | PC.NURSE ---
Assumed care of pt @ 19:30. Visible in hallway, pacing continuously and appears to be responding to internal stimuli.
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
--- NOTE | 2023-08-03 23:01 | PC.NURSE ---
PT refused scheduled Zyprexa and Melatonin
[2023-08-04] MEDS: Nicotine Polacrilex 2 MG GUM 4 MG BUCCAL ×7 (01:18→22:41)
[2023-08-04] MEDS: methADONE HCl 20 MG/2 ML ORAL.CONC 85 MG PO (09:38)
[2023-08-04] MEDS: Gabapentin 400 MG CAPSULE PO ×3 (09:38→22:41)
[2023-08-04] MEDS: clonazePAM 0.5 MG TABLET PO ×3 (09:38→22:41)
[2023-08-04] MEDS: Ziprasidone 40 MG CAPSULE PO (09:39)
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
--- NOTE | 2023-08-04 12:37 | PC.NURSE ---
during mouth check at morning med pass, pt reported when he lifts his tongue for a mouth check that he holds the pill to the roof of his mouth. Pt was asked to lift and then lower tongue to verify med compliance. Pt was not found to be cheeking meds.
[2023-08-04] MEDS: Ziprasidone 60 MG CAPSULE PO (19:02)
[2023-08-04 20:35] VITALS: RESP 18
[2023-08-05] MEDS: Nicotine Polacrilex 2 MG GUM 4 MG BUCCAL (03:43)
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
[2023-08-05] MEDS: Ziprasidone 60 MG CAPSULE PO ×2 (09:25→17:59)
[2023-08-05] MEDS: Gabapentin 400 MG CAPSULE PO ×3 (09:25→20:04)
[2023-08-05] MEDS: methADONE HCl 20 MG/2 ML ORAL.CONC 85 MG PO (09:25)
[2023-08-05] MEDS: clonazePAM 0.5 MG TABLET PO ×3 (09:25→20:04)
[2023-08-06 06:00] VITALS: RESP 18
[2023-08-06 07:00] VITALS: BMI 23.1
[2023-08-06] MEDS: clonazePAM 0.5 MG TABLET PO ×3 (08:09→19:05)
[2023-08-06] MEDS: Gabapentin 400 MG CAPSULE PO ×3 (08:09→19:07)
[2023-08-06] MEDS: Ziprasidone 60 MG CAPSULE PO ×2 (08:09→19:05)
[2023-08-06] MEDS: methADONE HCl 20 MG/2 ML ORAL.CONC 85 MG PO (08:10)
--- NOTE | 2023-08-06 12:47 | HO.WOUND ---
Wound Consult: Follow up 32yr old male admitted to [facility] on?07/10/23 20:11 to the Inpatient Behavioral Health Unit - See progress notes and H&P for detailed history. Follow up wound assessment. Patient is agreeable to assessment and photo documentation. From my initial consultation with Car he reports he is unclear as to how the wounds originated but reports he believes wearing the same shoes and not being able to take care of them is impacting wound development. The patient reports neuropathy to both feet at times. Todays assessment he has sneakers on socks on with noted observable drainage to sock. He is noted to not have a dressing in place. He reports he is not wearing a dressing becausehis body was telling him is needed to let the wound drain and that the dressings were in fact making the wounds worse. The wounds are observed to be larger at this time - see charting for details. They do not appear infected and are clean red moist tissue after cleansing. The patient reported several times that the wound was actually better because he did not cover it - I attempted to educated Car to the benefits of keeping it covered and clean - he was pleasnt but disagreed. The wounds were cleansed and I attempted to place Alginate onto the wound bed he was insistent that the alginate not be placed - he was not able to tell me his concerns but his statements revolved around paranoid ideas cuaseing him harm. throughout my visit he was picking at touching the wounds - he denied picking at the wounds although this may explain the increase in size on the plantar wound. We discussed covering the wounds with Triad cream and a cover dressing - he was agreeable to this. He reported feeling more comfortable with cream than the aliginate. The alginate is the preferred dressing but if he is refusing then Triad with a cover dressing is a better alternative to nothing. Direct care team aware of option for alternative dressing should he refuse Alginate packing. Will continue to follow. At time of discharge consider referral to outpt wound clinic and or Podiatry for nail care. Todays Assessment Left Great Toe 08/06/23 Todays Assessment Left Great Toe 08/06/23 Right Great toe Callus unchanged - no topical interventions needed at this time. Pt was reporting he belives ants and or maggots were living with in the callus and was attempting to pick at callus. Assured pt there were not s/s of maggot or ants in trapped under the callus and encouraged him to put his sock on and not attempt to remove the callus - he replaced his sock. Continue to recommend Podiatry follow up outpatient for callus removal. Left Great Toe Etiology: Neuropathic Wound Measurements: Dorsal Wound - increase in size noted 2cm x 1.2cm x 0.1cm - red pink moist partial thickness tissue loss - periwound remains blanchable erythema no swelling noted. Posterior Wound - 0.6cm x 0.7cm x 0.4cm - pink red moist wound bed - macerated edges and callused edges Drainage / Odor: serosang drainage noted on sock when removed - no purulence noted - No odor noted Edges: ?attached Natalie wound: ?Callused wound edge - No Induration, Fluctuance or Warmth noted Pain: Pt denies pain and tenderness - reports neuropathy Goals of Treatment: ? Moisture Management with Alginate - No new topical recommendations needed at this time - continue to pack with alginate however if pt is refusing alginate packing may cover and apply Triad to wound bed and periwound and cover with foam and or dry dressing. Recommendations: 1. Provide adequate and supplemental nutrition. 2. Left Great Toe (Dorsal and Posterior Wounds) - Cleanse with NS, pat dry. Apply Triad to periwound - cover wound beds with Alginate AG (Durafiber AG), (Lightly pack posterior wound bed) cover with foam dressing, consider dry gauze dressing to posterior wound as foam may be donating some moisture to periwound. Change Daily. Be sure to remove alginate packing to posterior wound - may need to be moistened prior to removal. If Alginate is refused may apply Triad to wound bed and periwound and cover with foam and or dry dressing. Triad will stick to wound bed - do not scrub off at next dressing change this will cause further tissue damage, pat and dab to cleanse, prior to next application. Re-consult wound care Nurse for wound deterioration or wound changes.
--- NOTE | 2023-08-06 16:28 | HO.PSYCHPN ---
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 reaction/tongue swelling, Risperdal: emotional numbing. Patient educated on: diagnosis Informed Consent: does not understand Reason for continued inpatient stay Substantial Risk for: inability to function Time Spent With Patient Time: Total time managing care of this patient today ____ minutes.
[2023-08-07] MEDS: Gabapentin 400 MG CAPSULE PO ×3 (08:07→19:52)
[2023-08-07] MEDS: clonazePAM 0.5 MG TABLET PO ×3 (08:07→19:53)
[2023-08-07] MEDS: Ziprasidone 60 MG CAPSULE PO (08:07)
[2023-08-07] MEDS: methADONE HCl 20 MG/2 ML ORAL.CONC 85 MG PO (08:08)
--- NOTE | 2023-08-07 08:26 | HO.PSYCHPN ---
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 reporting he belives ants and or maggots were living with in the callus and was attempting to pick at callus. Assured pt there were not s/s of maggot or ants in trapped under the callus and encouraged him to put his sock on and not attempt to remove the callus - he replaced his sock. Continue to recommend Podiatry follow up outpatient for callus removal. Patient educated on: diagnosis, medication risk/benefits and medical condition Informed Consent: understands, does not understand and further education needed Reason for continued inpatient stay Substantial Risk for: inability to function Time Spent With Patient Time: Total time managing care of this patient today ____ minutes.
[2023-08-07 09:00] VITALS: RESP 18
[2023-08-07 10:54] VITALS: BP 118/57; PULSE 96; TEMP 36.3; O2SAT 96
[2023-08-07] MEDS: Melatonin 3 MG TABLET PO (19:52)
[2023-08-08] MEDS: Gabapentin 400 MG CAPSULE PO ×3 (08:44→20:09)
[2023-08-08] MEDS: methADONE HCl 20 MG/2 ML ORAL.CONC 85 MG PO (08:45)
[2023-08-08] MEDS: Nicotine Polacrilex 2 MG GUM BUCCAL (13:36)
--- NOTE | 2023-08-08 15:43 | HO.PSYCHPN ---
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 to cleanse, prior to next application. -no osteomyelitis per Xray 2.Right Great toe Callus unchanged - no topical interventions needed at this time. Pt was reporting he belives ants and or maggots were living with in the callus and was attempting to pick at callus. Assured pt there were not s/s of maggot or ants in trapped under the callus and encouraged him to put his sock on and not attempt to remove the callus - he replaced his sock. Continue to recommend Podiatry follow up outpatient for callus removal. Informed Consent: does not understand Reason for continued inpatient stay Substantial Risk for: rapid decompensation Time Spent With Patient Time: Total time managing care of this patient today ____ minutes.
[2023-08-08] MEDS: Acetaminophen 325 MG TABLET 650 MG PO (17:04)
[2023-08-09] MEDS: Acetaminophen 325 MG TABLET 650 MG PO (03:26)
[2023-08-09 06:00] VITALS: BP 122/70; PULSE 90; RESP 16; TEMP 36.7; O2SAT 97
[2023-08-09] MEDS: Gabapentin 400 MG CAPSULE PO ×3 (08:13→20:44)
[2023-08-09] MEDS: methADONE HCl 20 MG/2 ML ORAL.CONC 85 MG PO (08:14)
--- NOTE | 2023-08-09 20:00 | HO.PSYCHPN ---
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 moisture to periwound. Change Daily. Be sure to remove alginate packing to posterior wound - may need to be moistened prior to removal. If Alginate is refused may apply Triad to wound bed and periwound and cover with foam and or dry dressing. Triad will stick to wound bed - do not scrub off at next dressing change this will cause further tissue damage, pat and dab to cleanse, prior to next application. -no osteomyelitis per Xray 2.Right Great toe Callus unchanged - no topical interventions needed at this time. Pt was reporting he belives ants and or maggots were living with in the callus and was attempting to pick at callus. Assured pt there were not s/s of maggot or ants in trapped under the callus and encouraged him to put his sock on and not attempt to remove the callus - he replaced his sock. Continue to recommend Podiatry follow up outpatient for callus removal. Informed Consent: does not understand Reason for continued inpatient stay Substantial Risk for: rapid decompensation Time Spent With Patient Time: Total time managing care of this patient today ____ minutes.
--- NOTE | 2023-08-10 07:54 | HO.PSYCHPN ---
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 may need to be moistened prior to removal. If Alginate is refused may apply Triad to wound bed and periwound and cover with foam and or dry dressing. Triad will stick to wound bed - do not scrub off at next dressing change this will cause further tissue damage, pat and dab to cleanse, prior to next application. -no osteomyelitis per Xray 2.Right Great toe Callus unchanged - no topical interventions needed at this time. Pt was reporting he belives ants and or maggots were living with in the callus and was attempting to pick at callus. Assured pt there were not s/s of maggot or ants in trapped under the callus and encouraged him to put his sock on and not attempt to remove the callus - he replaced his sock. Continue to recommend Podiatry follow up outpatient for callus removal. Patient educated on: diagnosis and medication risk/benefits Informed Consent: understands, does not understand and further education needed Reason for continued inpatient stay Substantial Risk for: inability to function Time Spent With Patient Time: Total time managing care of this patient today ____ minutes.
[2023-08-10 08:15] VITALS: RESP 18
[2023-08-10] MEDS: methADONE HCl 20 MG/2 ML ORAL.CONC 85 MG PO (08:21)
[2023-08-10] MEDS: Gabapentin 400 MG CAPSULE PO ×3 (08:22→20:31)
[2023-08-10] MEDS: clonazePAM 0.5 MG TABLET PO ×2 (16:23→20:31)
[2023-08-10] MEDS: Nicotine Polacrilex 2 MG GUM 4 MG BUCCAL ×2 (16:56→20:32)
[2023-08-10 18:00] VITALS: RESP 18
[2023-08-10] MEDS: Ziprasidone 80 MG CAPSULE PO (19:08)
[2023-08-11 08:00] VITALS: RESP 1
[2023-08-11] MEDS: methADONE HCl 20 MG/2 ML ORAL.CONC 85 MG PO (08:01)
[2023-08-11] MEDS: Gabapentin 400 MG CAPSULE PO ×3 (08:04→20:34)
[2023-08-11] MEDS: clonazePAM 0.5 MG TABLET PO ×3 (08:04→20:34)
[2023-08-11] MEDS: Nicotine Polacrilex 2 MG GUM 4 MG BUCCAL ×4 (08:04→20:36)
[2023-08-11] MEDS: Ziprasidone 60 MG CAPSULE PO (08:04)
--- NOTE | 2023-08-11 16:01 | HO.WOUND ---
Wound Consult: Follow up Phone consultation 32 yr old male admitted [place] [facility] [place]10/23 20:11?to the [facility]al Health Unit - See progress notes and H&P for detailed history. Discussed with direct care nurse Zack wound dressing - she reports Alginate was stuck to wound bed and pt was not agreeable to new application. Based on discussion recommend switch to Triad for topical care and will follow up for wound assessment 08/13/23. Recommendations: Left Great Toe - Cleanse with NS, Pat Dry. Apply layer of Triad to wound bed cover with gauze. Change daily. Re-consult wound care Nurse for wound deterioration or wound changes.
--- NOTE | 2023-08-11 16:21 | PC.NURSE ---
Changed dressing on great left toe. Contacted wound nurse Cata Macias for guidance- wound note updated -Please see new wound note. Wound RN will see Car on .
[2023-08-11] MEDS: Ziprasidone 80 MG CAPSULE PO (17:41)
--- NOTE | 2023-08-11 22:47 | HO.PSYCHPN ---
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 to wound bed and periwound and cover with foam and or dry dressing. Triad will stick to wound bed - do not scrub off at next dressing change this will cause further tissue damage, pat and dab to cleanse, prior to next application. -no osteomyelitis per Xray 2.Right Great toe Callus unchanged - no topical interventions needed at this time. Pt was reporting he belives ants and or maggots were living with in the callus and was attempting to pick at callus. Assured pt there were not s/s of maggot or ants in trapped under the callus and encouraged him to put his sock on and not attempt to remove the callus - he replaced his sock. Continue to recommend Podiatry follow up outpatient for callus removal. Patient educated on: diagnosis Informed Consent: does not understand Reason for continued inpatient stay Substantial Risk for: inability to function Time Spent With Patient Time: Total time managing care of this patient today ____ minutes.
[2023-08-12] MEDS: Nicotine Polacrilex 2 MG GUM 4 MG BUCCAL ×4 (04:43→16:19)
[2023-08-12 06:00] VITALS: PULSE 114; RESP 18; O2SAT 95
[2023-08-12] MEDS: Gabapentin 400 MG CAPSULE PO (08:09)
[2023-08-12] MEDS: Ziprasidone 60 MG CAPSULE PO (08:09)
[2023-08-12] MEDS: methADONE HCl 20 MG/2 ML ORAL.CONC 85 MG PO (08:09)
[2023-08-12] MEDS: clonazePAM 0.5 MG TABLET PO ×2 (08:09→14:09)
--- NOTE | 2023-08-12 09:50 | P.PNPSI_ITS ---
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 ?Patient?still?feels Persecuted?by they and?or?FRED...??He?says?he?does?not?feel?it?is?quite?as?bad?as?when?he?1st?was?ad mitted. However,later on?he?accused?a?nurse?that?she?was?part?of?the?FRED?and?would?not?let?her?examine ?his?foot w ound.??Also?he?made?a?sexually?inappropriate?remark?to?her,?talking?about?a?medi cation?squirting...and said to her I like it when roman in my mouth, like tits and penis... Regarding?medication?decisions:??Will?switch?patient?to?clozapine P atient?has?had?numerous?hospitalizations?this?past?year,?either?with?little?bene fit?from?medications?or?quickly?discontinuing?them On?discharge?And?again?becoming?psychotic?and?unsafe. Even?at?nearly?max?doses?of?ziprasidone (or zyprex),?patient?has?remained?with?significantly?and?life?impairing?psychosis. Patient's?suicidality?has?lessened?and?he's?future?oriented (though with?completely?unrealistic?goals), However, he remains psychotic, with paranoid?delusions,?internally?preoccupied,no?insight,?disorganized in speech and behavior,?sexual inapropriate,talking?to?himself,?disheveled?and?isolative. ?He?is?taking?medication?only?because?it?is?court?ordered And?monitored.??Though?slightly?improved,?were?he?to?discharge,?he?still could not?function?on?his?own?in?the?community; he has no insight, has repeatedly tried to avoid taking medications and there?is?no?reason?to?expect?he would?remain adherent. He would quickly?decompensate, become suicidal. ?Discussed?at?length?with?team.??Patient?very?much?does?not?want?blood?draws,?ho wenarciso C lozapine?remains?the?most?likely?effective?medication?available?and?patient's?be st?chance?at?gaining?insight?into?his?illness?and Progressing?him?towards?being?able?to?function?in?the?community. -Clozapine least likely to cause dystonic reaction which he had from Haldol, making other 1st generation antipsychotics less optimal -plan to change meds discussed with patient who was unable to appreciate reasoning, his illness and limits in functioning. PLAN: Section 8/8b involuntary commitment and substituted judgment ordered Q 15 minute checks Continue ziprasidone 60 mg daily. (* COURT ORDERED; cannot refuse.. Give IM ziprasidone if refuses p.o.) Continue ziprasidone 80 mg qhs. FAZAL Sam; has been refusing and did not seem effective Continue Clonazepam 0.5 mg to t.i.d. Gabapentin 400 mg t.i.d. Methadone 85 mg daily Medication options per court ordered substituted judgment: Clozapine Ziprasidone Thorazine Fluphenazine Perphenazine Zyprexa Past med trials: Zyprexa: not effective Seroquel sedation Haldol: dystonic reaction/tongue swelling, Risperdal: emotional numbing. Right Great Toe: Assessment 08/06/23 1. Left Great Toe (Dorsal and Posterior Wounds) - Cleanse with NS, pat dry. Apply Triad to periwound - cover wound beds with Alginate AG (Durafiber AG), (Lightly pack posterior wound bed) cover with foam dressing, consider dry gauze dressing to posterior wound as foam may be donating some moisture to periwound. Change Daily. Be sure to remove alginate packing to posterior wound - may need to be moistened prior to removal. If Alginate is refused may apply Triad to wound bed and periwound and cover with foam and or dry dressing. Triad will stick to wound bed - do not scrub off at next dressing change this will cause further tissue damage, pat and dab to cleanse, prior to next application. -no osteomyelitis per Xray 2.Right Great toe Callus unchanged - no topical interventions needed at this time. Pt was reporting he belives ants and or maggots were living with in the callus and was attempting to pick at callus. Assured pt there were not s/s of maggot or ants in trapped under the callus and encouraged him to put his sock on and not attempt to remove the callus - he replaced his sock. Continue to recommend Podiatry follow up outpatient for callus removal. Patient educated on: diagnosis, medication risk/benefits and medical condition Informed Consent: does not understand Reason for continued inpatient stay Substantial Risk for: inability to function Time Spent With Patient Time: Total time managing care of this patient today ____ minutes.
[2023-08-12] MEDS: Gabapentin 300 MG CAPSULE 600 MG PO ×2 (14:09→19:54)
[2023-08-12] MEDS: Ziprasidone 80 MG CAPSULE PO (17:37)
[2023-08-12 18:00] VITALS: BP 108/66; PULSE 102; TEMP 37.6; O2SAT 96
[2023-08-12] MEDS: Acetaminophen 325 MG TABLET 650 MG PO (19:53)
[2023-08-12] MEDS: clonazePAM 1 MG TABLET PO (19:54)
[2023-08-13] MEDS: Nicotine Polacrilex 2 MG GUM 4 MG BUCCAL ×4 (01:22→20:34)
[2023-08-13 06:00] VITALS: RESP 18
[2023-08-13] MEDS: Gabapentin 300 MG CAPSULE 600 MG PO ×3 (08:22→20:34)
[2023-08-13] MEDS: clonazePAM 0.5 MG TABLET PO ×2 (08:22→14:15)
[2023-08-13] MEDS: Ziprasidone 80 MG CAPSULE PO ×2 (08:22→19:22)
[2023-08-13] MEDS: methADONE HCl 20 MG/2 ML ORAL.CONC 85 MG PO (08:22)
[2023-08-13 09:35] LABS: MANUAL DIFF FLAG NO
[2023-08-13 09:47] LABS: Estimated Average Glucose 82 mg/dL; Hemoglobin A1c % 4.5 % (<6.0)
[2023-08-13 09:48] LABS: Basophils Absolute Auto 0.1 X10*3/uL (0.0-0.2); Basophils Percent Auto 0.5 % (0-2); Eosinophils Absolute Auto 0.3 X10*3/uL (0.0-0.4); Eosinophils Percent Auto 2.5 % (0-4); Hematocrit 40.6 % (42.0-52.0); Hemoglobin 14.2 g/dl (14.0-18.0); Imm Gran Abs Auto 0.08 X10*3/uL (0.00-0.03); Imm Gran Pct Auto 0.7 % (0.0-0.4); Lymphocytes Percent Auto 32.8 % (20-40); Mean Corpuscular Hemoglobin 32.6 pg (27.0-33.0); Mean Corpuscular Volume 93.1 fL (80.0-98.0); Mean Platelet Volume 11.4 fL (9.4-12.4); Monocytes Absolute Auto 0.9 X10*3/uL (0.1-1.2); Monocytes Percent Auto 7.3 % (2-11); Neutrophils Absolute Auto 6.8 x10*3/uL (2.0-8.3); Neutrophils Percent Auto 56.2 % (45-73); Platelet Count 192 X10*3/uL (160-400); Red Blood Count 4.36 X10*6/uL (4.60-5.80); Red Cell Distribution Width 13.4 % (11.0-16.0); White Blood Count 12.2 X10*3/uL (4.8-10.8)
[2023-08-13 09:57] LABS: Alanine Aminotransferase 144 U/L (0-40); Albumin Level 4.1 g/dL (3.5-5.0); Alkaline Phosphatase 93 U/L (39-117); Anion Gap 21 (12-20); Aspartate Amino Transferase 145 U/L (5-37); Bilirubin Total 1.1 mg/dL (0.0-1.0); Blood Urea Nitrogen 23 mg/dL (9-16); Calcium 9.6 mg/dL (8.4-10.2); Carbon Dioxide 18 mmol/L (22-29); Chloride 104 mmol/L (96-108); Cholesterol 132 mg/dL (<200); Creatinine Clr Calc Pharmacy 177.6; Estimated Glomerular Filt Rate > 60; Glucose Random 110 mg/dL (60-115); HDL Cholesterol 51 mg/dL (>40); LDL Cholesterol Calculated 70 mg/dL (<100); Potassium 4.8 mmol/L (3.3-5.1); Sodium 138 mmol/L (135-145); Total Protein 8.5 g/dL (6.5-8.0); Triglycerides 58 mg/dL (<150)
[2023-08-13 09:58] LABS: Reflex LDLD? No
--- NOTE | 2023-08-13 10:08 | HO.PSYCHPN ---
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 likely not much different. Again discussed with nursing whether not to start with ziprasidone IM for a few days; will continue to hold off for now but strongly considering this as it is essential to know if this medication can be effective verses needing to again switch medications. 08/07 no change in presentation dry skin vs possible rash on b/l ankle; given benadryl for itchiness; will try lotion and monitor will get EKG and consider increasing Ziprasidone as no appreciable improvment/reduction of symptoms 08/10 says he's better, not feeling persecuted, but behaviors remain the same, internally preoccupied, pacing non-stop, self-dialoguing, isolative...concern is that nothing has really changed other than patient disclosing less qtc wnl. 08/12 today, SW and typewriter assembly and parts inspector met with patient. ?He?shared?about?some?plans?he?has?once?discharged,?which? 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 ?Patient?still?feels Persecuted?by they and?or?FRED...??He?says?he?does?not?feel?it?is?quite?as?bad?as?when?he?1st?was?admitted. However,later on?he?accused?a?nurse?that?she?was?part?of?the?FRED?and?would?not?let?her?examine?his?foot wound.??Also?he?made?a?sexually?inappropriate?remark?to?her,?talking?about?a?medication?squirting...and said to her I like it when roman in my mouth, like tits and penis... 08/13 No?change?in?presentation;?discussed?with?patient?change?of?med?and?the?need?for?labs?but?he?refused. ANC?lab?necessary?to?start?clozapine?falls?into?court?order.??Patient?needed?staff/security?to?hold?him for?blood?draw and pt very upset about it. Regarding?medication?decisions:??Will?switch?patient?to?clozapine Patient?has?had?numerous?hospitalizations?this?past?year,?either?with?little?benefit?from?medications?or?quickly?discontinuing?them On?discharge?And?again?becoming?psychotic?and?unsafe. Even?at?nearly?max?doses?of?ziprasidone (or zyprex),?patient?has?remained?with?significantly?and?life?impairing?psychosis. Patient's?suicidality?has?lessened?and?he's?future?oriented (though with?completely?unrealistic?goals), However, he remains psychotic, with paranoid?delusions,?internally?preoccupied,no?insight,?disorganized in speech and behavior,?sexual inapropriate,talking?to?himself,?disheveled?and?isolative. Due to parnoia, he's not letting staff address his foot wound which needs to be attended to daily. He?is?taking?medication?only?because?it?is?court?ordered and monitored. Though?slightly?improved,?were?he?to?discharge,?he?still could not?function?on?his?own?in?the?community; he has no insight, has repeatedly tried to avoid taking medications and there?is?no?reason?to?expect?he would?remain adherent. He would quickly?decompensate, become suicidal. ?Discussed?at?length?with?team.??Patient?very?much?does?not?want?blood?draws,?however Clozapine?remains?the?most?likely?effective?medication?available?and?patient's?best?chance?at?gaining?insight?into?his?illness?and Progressing?him?towards?being?able?to?function?in?the?community. -Clozapine least likely to cause dystonic reaction which he had from Haldol, making other 1st generation antipsychotics less optimal -plan to change meds discussed with patient who was unable to appreciate reasoning, his illness and limits in functioning. PLAN: Section 8/8b involuntary commitment and substituted judgment ordered Q 15 minute checks ANC 6800 Lft's mild-moderately elevated, likely due to Ziprasidone will DC ziprasidone (not helpful) and start Clozapine (* COURT ORDERED; cannot refuse.. Give IM ziprasidone if refuses p.o.) DC Zyprexa; has been refusing and did not seem effective Continue Clonazepam 0.5 mg to bid added clonazepam 1mg qhs to help pt sleep who complains of AH, delusions making it hard to sleep increased to Gabapentin 600 mg t.i.d. at pt requesst Methadone 85 mg daily Medication options per court ordered substituted judgment: Clozapine Ziprasidone Thorazine Fluphenazine Perphenazine Zyprexa Past med trials: Zyprexa: not effective Seroquel sedation Haldol: dystonic reaction/tongue swelling, Risperdal: emotional numbing. Right Great Toe: Assessment 08/06/23 1. Left Great Toe (Dorsal and Posterior Wounds) - Cleanse with NS, pat dry. Apply Triad to periwound - cover wound beds with Alginate AG (Durafiber AG), (Lightly pack posterior wound bed) cover with foam dressing, consider dry gauze dressing to posterior wound as foam may be donating some moisture to periwound. Change Daily. Be sure to remove alginate packing to posterior wound - may need to be moistened prior to removal. If Alginate is refused may apply Triad to wound bed and periwound and cover with foam and or dry dressing. Triad will stick to wound bed - do not scrub off at next dressing change this will cause further tissue damage, pat and dab to cleanse, prior to next application. -no osteomyelitis per Xray 2.Right Great toe Callus unchanged - no topical interventions needed at this time. Pt was reporting he belives ants and or maggots were living with in the callus and was attempting to pick at callus. Assured pt there were not s/s of maggot or ants in trapped under the callus and encouraged him to put his sock on and not attempt to remove the callus - he replaced his sock. Continue to recommend Podiatry follow up outpatient for callus removal. Patient educated on: diagnosis and medication risk/benefits Informed Consent: does not understand Reason for continued inpatient stay Substantial Risk for: inability to function Time Spent With Patient Time: Total time managing care of this patient today ____ minutes.
[2023-08-13] MEDS: Acetaminophen 325 MG TABLET 650 MG PO (16:24)
[2023-08-13] MEDS: clonazePAM 1 MG TABLET PO (20:34)
[2023-08-14] MEDS: Nicotine Polacrilex 2 MG GUM 4 MG BUCCAL ×7 (01:02→20:44)
[2023-08-14] MEDS: clonazePAM 0.5 MG TABLET PO ×2 (08:07→13:27)
[2023-08-14] MEDS: Ziprasidone 80 MG CAPSULE PO (08:07)
[2023-08-14] MEDS: Gabapentin 300 MG CAPSULE 600 MG PO ×3 (08:07→20:42)
[2023-08-14] MEDS: methADONE HCl 20 MG/2 ML ORAL.CONC 85 MG PO (08:08)
[2023-08-14 08:19] VITALS: RESP 18
--- NOTE | 2023-08-14 09:54 | HO.PSYCHPN ---
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 nothing has really changed other than patient disclosing less qtc wnl. 08/14?patient?remains?with?psychotic,?paranoid?delusions,?internally?preoccupied,?no?insight,?odd?behaviors?and?nonstop Pacing?the?halls.??Refusing?nursing?to?look?at?his?wounds?are?provide?wound?care. -continue?with?plan?for?clozapine;?will?start?with?12.5?mg?b.i.d. PLAN: Section 8/ involuntary commitment and substituted judgment ordered Q 15 minute checks Clozapine ODT 12.5mg BID (* COURT ORDERED; cannot refuse.. Give IM ziprasidone if refuses p.o.) DC ziprasidone *?if?refuses?p.o?clozapine.,?administer?Zyprexa?IM?10?mg (court?order) Continue Clonazepam 0.5 mg to b.i.d. Continue?clonazepam?1?mg?q.h.s. Increased?to?Gabapentin 600 mg t.i.d. Methadone 85 mg daily Medication options per court ordered substituted judgment: Clozapine Ziprasidone Thorazine Fluphenazine Perphenazine Zyprexa Past med trials: Zyprexa: not effective Seroquel sedation Haldol: dystonic reaction/tongue swelling, Risperdal: emotional numbing. Right Great Toe: Assessment 08/06/23 1. Left Great Toe (Dorsal and Posterior Wounds) - Cleanse with NS, pat dry. Apply Triad to periwound - cover wound beds with Alginate AG (Durafiber AG), (Lightly pack posterior wound bed) cover with foam dressing, consider dry gauze dressing to posterior wound as foam may be donating some moisture to periwound. Change Daily. Be sure to remove alginate packing to posterior wound - may need to be moistened prior to removal. If Alginate is refused may apply Triad to wound bed and periwound and cover with foam and or dry dressing. Triad will stick to wound bed - do not scrub off at next dressing change this will cause further tissue damage, pat and dab to cleanse, prior to next application. -no osteomyelitis per Xray 2.Right Great toe Callus unchanged - no topical interventions needed at this time. Pt was reporting he belives ants and or maggots were living with in the callus and was attempting to pick at callus. Assured pt there were not s/s of maggot or ants in trapped under the callus and encouraged him to put his sock on and not attempt to remove the callus - he replaced his sock. Continue to recommend Podiatry follow up outpatient for callus removal. Patient educated on: diagnosis and medication risk/benefits Informed Consent: does not understand Reason for continued inpatient stay Substantial Risk for: inability to function Time Spent With Patient Time: Total time managing care of this patient today ____ minutes.
[2023-08-14] MEDS: Acetaminophen 325 MG TABLET 650 MG PO (13:16)
[2023-08-14] MEDS: OLANZapine 10 MG VIAL IM ×2 (14:40→20:59)
--- NOTE | 2023-08-14 16:37 | HO.WOUND ---
Wound Consult: Follow [place] 32yr [place] [facility] [place] [facility] - See progress notes and H&P for detailed history.? Wound consult follow up today for Left foot wounds - pt was not agreeable to assessment. He was initially sleeping when arrival to bedside - he awoke but remained sleepy when walking the unit but continued to refuse assessment. Will attempt assessment nearly next week. .?
[2023-08-14] MEDS: clonazePAM 1 MG TABLET PO (20:42)
[2023-08-15] MEDS: Nicotine Polacrilex 2 MG GUM 4 MG BUCCAL ×4 (05:33→20:02)
[2023-08-15 07:42] VITALS: RESP 18
[2023-08-15] MEDS: Gabapentin 300 MG CAPSULE 600 MG PO ×3 (08:02→20:01)
[2023-08-15] MEDS: clonazePAM 0.5 MG TABLET PO ×2 (08:02→15:03)
[2023-08-15] MEDS: methADONE HCl 20 MG/2 ML ORAL.CONC 85 MG PO (08:02)
[2023-08-15] MEDS: OLANZapine 10 MG VIAL IM ×2 (08:46→21:59)
[2023-08-15] MEDS: Nicotine 21 MG PATCH.TD24 TRANSDERMA (09:31)
--- NOTE | 2023-08-15 09:53 | HO.PSYCHPN ---
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 (Durafiber AG), (Lightly pack posterior wound bed) cover with foam dressing, consider dry gauze dressing to posterior wound as foam may be donating some moisture to periwound. Change Daily. Be sure to remove alginate packing to posterior wound - may need to be moistened prior to removal. If Alginate is refused may apply Triad to wound bed and periwound and cover with foam and or dry dressing. Triad will stick to wound bed - do not scrub off at next dressing change this will cause further tissue damage, pat and dab to cleanse, prior to next application. -no osteomyelitis per Xray 2.Right Great toe Callus unchanged - no topical interventions needed at this time. Pt was reporting he belives ants and or maggots were living with in the callus and was attempting to pick at callus. Assured pt there were not s/s of maggot or ants in trapped under the callus and encouraged him to put his sock on and not attempt to remove the callus - he replaced his sock. Continue to recommend Podiatry follow up outpatient for callus removal. 08/15/23: Continue current regimen and plans Reason for continued inpatient stay Substantial Risk for: med/psych decompensation Time Spent With Patient Time: Total time managing care of this patient today ____ minutes.
[2023-08-15 18:00] VITALS: BP 113/68; PULSE 91; RESP 16; TEMP 36.9
[2023-08-15] MEDS: clonazePAM 1 MG TABLET PO (20:01)
[2023-08-16] MEDS: Nicotine Polacrilex 2 MG GUM 4 MG BUCCAL ×8 (01:22→23:03)
--- NOTE | 2023-08-16 07:41 | HO.PSYCHPN ---
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 Regarding?medication?decisions:??Will?switch?patient?to?clozapine Patient?has?had?numerous?hospitalizations?this?past?year,?either?with?little?benefit?from?medications?or?quickly?discontinuing?them On?discharge?And?again?becoming?psychotic?and?unsafe. Even?at?nearly?max?doses?of?ziprasidone (or zyprex),?patient?has?remained?with?significantly?and?life?impairing?psychosis. Patient's?suicidality?has?lessened?and?he's?future?oriented (though with?completely?unrealistic?goals), However, he remains psychotic, with paranoid?delusions,?internally?preoccupied,no?insight,?disorganized in speech and behavior,?sexual inapropriate,talking?to?himself,?disheveled?and?isolative. Due to parnoia, he's not letting staff address his foot wound which needs to be attended to daily. He?is?taking?medication?only?because?it?is?court?ordered and monitored. Though?slightly?improved,?were?he?to?discharge,?he?still could not?function?on?his?own?in?the?community; he has no insight, has repeatedly tried to avoid taking medications and there?is?no?reason?to?expect?he would?remain adherent. He would quickly?decompensate, become suicidal. ?Discussed?at?length?with?team.??Patient?very?much?does?not?want?blood?draws,?however Clozapine?remains?the?most?likely?effective?medication?available?and?patient's?best?chance?at?gaining?insight?into?his?illness?and Progressing?him?towards?being?able?to?function?in?the?community. -Clozapine least likely to cause dystonic reaction which he had from Haldol, making other 1st generation antipsychotics less optimal -plan to change meds discussed with patient who was unable to appreciate reasoning, his illness and limits in functioning. 08/15/23: Continue current regimen and plans 08/16/2023: Continue current regimen and plans. Zyprexa in reaction to Clozaril refusal changed to Zyprexa Zydis 10 mg b.i.d. p.r.n. PLAN: Section 8/8b involuntary commitment and substituted judgment ordered Q 15 minute checks ANC 6800 Lft's mild-moderately elevated, likely due to Ziprasidone will DC ziprasidone (not helpful) and start Clozapine (* COURT ORDERED; cannot refuse.. Give IM ziprasidone if refuses p.o.) DC Zyprexa; has been refusing and did not seem effective Continue Clonazepam 0.5 mg to bid added clonazepam 1mg qhs to help pt sleep who complains of AH, delusions making it hard to sleep increased to Gabapentin 600 mg t.i.d. at pt requesst Methadone 85 mg daily Medication options per court ordered substituted judgment: Clozapine Ziprasidone Thorazine Fluphenazine Perphenazine Zyprexa Past med trials: Zyprexa: not effective Seroquel sedation Haldol: dystonic reaction/tongue swelling, Risperdal: emotional numbing. Right Great Toe: Assessment 08/06/23 1. Left Great Toe (Dorsal and Posterior Wounds) - Cleanse with NS, pat dry. Apply Triad to periwound - cover wound beds with Alginate AG (Durafiber AG), (Lightly pack posterior wound bed) cover with foam dressing, consider dry gauze dressing to posterior wound as foam may be donating some moisture to periwound. Change Daily. Be sure to remove alginate packing to posterior wound - may need to be moistened prior to removal. If Alginate is refused may apply Triad to wound bed and periwound and cover with foam and or dry dressing. Triad will stick to wound bed - do not scrub off at next dressing change this will cause further tissue damage, pat and dab to cleanse, prior to next application. -no osteomyelitis per Xray 2.Right Great toe Callus unchanged - no topical interventions needed at this time. Pt was reporting he belives ants and or maggots were living with in the callus and was attempting to pick at callus. Assured pt there were not s/s of maggot or ants in trapped under the callus and encouraged him to put his sock on and not attempt to remove the callus - he replaced his sock. Continue to recommend Podiatry follow up outpatient for callus removal. Patient educated on: medication risk/benefits Reason for continued inpatient stay Substantial Risk for: rapid decompensation Time Spent With Patient Time: Total time managing care of this patient today ____ minutes.
[2023-08-16 08:16] VITALS: RESP 18
[2023-08-16] MEDS: clonazePAM 0.5 MG TABLET PO ×2 (08:19→14:20)
[2023-08-16] MEDS: Gabapentin 300 MG CAPSULE 600 MG PO ×2 (08:19→14:19)
[2023-08-16] MEDS: OLANZapine ODT 10 MG TAB.RAPDIS TRANSLINGU (08:20)
[2023-08-16] MEDS: methADONE HCl 20 MG/2 ML ORAL.CONC 85 MG PO (08:21)
[2023-08-16] MEDS: Nicotine 21 MG PATCH.TD24 TRANSDERMA (09:30)
[2023-08-16] MEDS: cloZAPine ODT 25 MG TAB.RAPDIS 12.5 MG PO (22:02)
[2023-08-16] MEDS: Gabapentin 300 MG CAPSULE PO (22:02)
[2023-08-16] MEDS: Ziprasidone Mesylate 20 MG VIAL IM (22:17)
[2023-08-17] MEDS: Nicotine Polacrilex 2 MG GUM 4 MG BUCCAL ×6 (01:33→20:48)
[2023-08-17 08:00] VITALS: RESP 18
[2023-08-17] MEDS: methADONE HCl 20 MG/2 ML ORAL.CONC 85 MG PO (08:27)
[2023-08-17] MEDS: Nicotine 21 MG PATCH.TD24 TRANSDERMA (08:27)
[2023-08-17] MEDS: cloZAPine ODT 25 MG TAB.RAPDIS 12.5 MG PO ×2 (08:34→22:21)
[2023-08-17] MEDS: Gabapentin 300 MG CAPSULE PO (08:35)
--- NOTE | 2023-08-17 09:27 | HO.PSYCHPN ---
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 it. Regarding?medication?decisions:??Will?switch?patient?to?clozapine Patient?has?had?numerous?hospitalizations?this?past?year,?either?with?little?benefit?from?medications?or?quickly?discontinuing?them On?discharge?And?again?becoming?psychotic?and?unsafe. Even?at?nearly?max?doses?of?ziprasidone (or zyprex),?patient?has?remained?with?significantly?and?life?impairing?psychosis. Patient's?suicidality?has?lessened?and?he's?future?oriented (though with?completely?unrealistic?goals), However, he remains psychotic, with paranoid?delusions,?internally?preoccupied,no?insight,?disorganized in speech and behavior,?sexual inapropriate,talking?to?himself,?disheveled?and?isolative. Due to parnoia, he's not letting staff address his foot wound which needs to be attended to daily. He?is?taking?medication?only?because?it?is?court?ordered and monitored. Though?slightly?improved,?were?he?to?discharge,?he?still could not?function?on?his?own?in?the?community; he has no insight, has repeatedly tried to avoid taking medications and there?is?no?reason?to?expect?he would?remain adherent. He would quickly?decompensate, become suicidal. ?Discussed?at?length?with?team.??Patient?very?much?does?not?want?blood?draws,?however Clozapine?remains?the?most?likely?effective?medication?available?and?patient's?best?chance?at?gaining?insight?into?his?illness?and Progressing?him?towards?being?able?to?function?in?the?community. -Clozapine least likely to cause dystonic reaction which he had from Haldol, making other 1st generation antipsychotics less optimal -plan to change meds discussed with patient who was unable to appreciate reasoning, his illness and limits in functioning. 1/13/24: Continue current regimen and plans 08/16/2023: Continue current regimen and plans. Zyprexa in reaction to Clozaril refusal changed to Zyprexa Zydis 10 mg b.i.d. p.r.n. 08/17 Patient says he has no longer sedated and that was only because of Zyprexa and as asking for clonazepam to be returned and gabapentin increase back to former dose.. [employer] agreed saying it was just held out of concern. Patient took Clozaril today and said he would continue to do so. Otherwise remains with same presentation, paranoid delusions, disorganized behavior PLAN: Section 8/8b involuntary commitment and substituted judgment ordered Q 15 minute checks Clozapine OdT 12.5 mg b.i.d. (* COURT ORDERED; cannot refuse.. Give IM ziprasidone if refuses p.o.) Continue Clonazepam 0.5 mg to bid Continue clonazepam 1mg qhs to help pt sleep who complains of AH, delusions making it hard to sleep continue Gabapentin 600 mg t.i.d Methadone 85 mg daily ANC 6800 Lft's mild-moderately elevated, likely due to Ziprasidone Medication options per court ordered substituted judgment: Clozapine Ziprasidone not effective at high doses Thorazine Fluphenazine Perphenazine Zyprexa Past med trials: Zyprexa: not effective Seroquel sedation Haldol: dystonic reaction/tongue swelling, Risperdal: emotional numbing. Right Great Toe: Assessment 08/06/23 1. Left Great Toe (Dorsal and Posterior Wounds) - Cleanse with NS, pat dry. Apply Triad to periwound - cover wound beds with Alginate AG (Durafiber AG), (Lightly pack posterior wound bed) cover with foam dressing, consider dry gauze dressing to posterior wound as foam may be donating some moisture to periwound. Change Daily. Be sure to remove alginate packing to posterior wound - may need to be moistened prior to removal. If Alginate is refused may apply Triad to wound bed and periwound and cover with foam and or dry dressing. Triad will stick to wound bed - do not scrub off at next dressing change this will cause further tissue damage, pat and dab to cleanse, prior to next application. -no osteomyelitis per Xray 2.Right Great toe Callus unchanged - no topical interventions needed at this time. Pt was reporting he belives ants and or maggots were living with in the callus and was attempting to pick at callus. Assured pt there were not s/s of maggot or ants in trapped under the callus and encouraged him to put his sock on and not attempt to remove the callus - he replaced his sock. Continue to recommend Podiatry follow up outpatient for callus removal. Patient educated on: diagnosis and medication risk/benefits Informed Consent: understands, does not understand and further education needed Reason for continued inpatient stay Substantial Risk for: inability to function Time Spent With Patient Time: Total time managing care of this patient today ____ minutes.
[2023-08-17] MEDS: clonazePAM 0.5 MG TABLET PO (17:46)
[2023-08-17] MEDS: Acetaminophen 325 MG TABLET 650 MG PO (17:58)
[2023-08-17 18:26] VITALS: RESP 18
--- NOTE | 2023-08-17 19:44 | PC.NURSE ---
Assumed care of this pt at 19:30. Pt is currently pacing halls and keeping to self. Offers no complaints @ this time. Plan of care ongoing.
[2023-08-17] MEDS: clonazePAM 1 MG TABLET PO (20:48)
[2023-08-17] MEDS: Gabapentin 300 MG CAPSULE 600 MG PO (20:48)
[2023-08-18] MEDS: Nicotine Polacrilex 2 MG GUM 4 MG BUCCAL ×5 (02:22→19:57)
[2023-08-18] MEDS: Nicotine Polacrilex 2 MG GUM BUCCAL (03:19)
[2023-08-18 08:00] VITALS: RESP 20
[2023-08-18] MEDS: methADONE HCl 20 MG/2 ML ORAL.CONC 85 MG PO (08:10)
[2023-08-18] MEDS: Nicotine 21 MG PATCH.TD24 TRANSDERMA (08:10)
[2023-08-18] MEDS: cloZAPine ODT 25 MG TAB.RAPDIS 12.5 MG PO (08:11)
[2023-08-18] MEDS: Gabapentin 300 MG CAPSULE 600 MG PO ×3 (08:11→20:43)
[2023-08-18] MEDS: clonazePAM 0.5 MG TABLET PO ×2 (08:11→14:50)
--- NOTE | 2023-08-18 09:54 | HO.PSYCHPN ---
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 wound.??Also?he?made?a?sexually?inappropriate?remark?to?her,?talking?about?a?medication?squirting...and said to her I like it when roman in my mouth, like tits and penis... 08/13 No?change?in?presentation;?discussed?with?patient?change?of?med?and?the?need?for?labs?but?he?refused. ANC?lab?necessary?to?start?clozapine?falls?into?court?order.??Patient?needed?staff/security?to?hold?him for?blood?draw and pt very upset about it. Regarding?medication?decisions:??Will?switch?patient?to?clozapine Patient?has?had?numerous?hospitalizations?this?past?year,?either?with?little?benefit?from?medications?or?quickly?discontinuing?them On?discharge?And?again?becoming?psychotic?and?unsafe. Even?at?nearly?max?doses?of?ziprasidone (or zyprex),?patient?has?remained?with?significantly?and?life?impairing?psychosis. Patient's?suicidality?has?lessened?and?he's?future?oriented (though with?completely?unrealistic?goals), However, he remains psychotic, with paranoid?delusions,?internally?preoccupied,no?insight,?disorganized in speech and behavior,?sexual inapropriate,talking?to?himself,?disheveled?and?isolative. Due to parnoia, he's not letting staff address his foot wound which needs to be attended to daily. He?is?taking?medication?only?because?it?is?court?ordered and monitored. Though?slightly?improved,?were?he?to?discharge,?he?still could not?function?on?his?own?in?the?community; he has no insight, has repeatedly tried to avoid taking medications and there?is?no?reason?to?expect?he would?remain adherent. He would quickly?decompensate, become suicidal. ?Discussed?at?length?with?team.??Patient?very?much?does?not?want?blood?draws,?however Clozapine?remains?the?most?likely?effective?medication?available?and?patient's?best?chance?at?gaining?insight?into?his?illness?and Progressing?him?towards?being?able?to?function?in?the?community. -Clozapine least likely to cause dystonic reaction which he had from Haldol, making other 1st generation antipsychotics less optimal -plan to change meds discussed with patient who was unable to appreciate reasoning, his illness and limits in functioning. 08/15/23: Continue current regimen and plans 08/16/2023: Continue current regimen and plans. Zyprexa in reaction to Clozaril refusal changed to Zyprexa Zydis 10 mg b.i.d. p.r.n. 08/17 Patient says he has no longer sedated and that was only because of Zyprexa and as asking for clonazepam to be returned and gabapentin increase back to former dose.. Wet Room Supervisor agreed saying it was just held out of concern. Patient took Clozaril today and said he would continue to do so. Otherwise remains with same presentation, paranoid delusions, disorganized behavior 08/18 change clozapine to q.h.s. since patient complains of daytime sedation -refuses to let would nurse or anyone treat feet PLAN: Section 8/8b involuntary commitment and substituted judgment ordered Q 15 minute checks Clozapine OdT 50 mg qhs. (* COURT ORDERED; cannot refuse.. Give IM ziprasidone if refuses p.o.) Continue Clonazepam 0.5 mg to bid Continue clonazepam 1mg qhs to help pt sleep who complains of AH, delusions making it hard to sleep continue Gabapentin 600 mg t.i.d Methadone 85 mg daily ANC 6800 Lft's mild-moderately elevated, likely due to Ziprasidone Medication options per court ordered substituted judgment: Clozapine Ziprasidone not effective even at therapeutic doses Thorazine Fluphenazine Perphenazine Zyprexa Past med trials: Zyprexa: not effective Seroquel sedation Haldol: dystonic reaction/tongue swelling, Risperdal: emotional numbing. Right Great Toe: Assessment 08/06/23 1. Left Great Toe (Dorsal and Posterior Wounds) - Cleanse with NS, pat dry. Apply Triad to periwound - cover wound beds with Alginate AG (Durafiber AG), (Lightly pack posterior wound bed) cover with foam dressing, consider dry gauze dressing to posterior wound as foam may be donating some moisture to periwound. Change Daily. Be sure to remove alginate packing to posterior wound - may need to be moistened prior to removal. If Alginate is refused may apply Triad to wound bed and periwound and cover with foam and or dry dressing. Triad will stick to wound bed - do not scrub off at next dressing change this will cause further tissue damage, pat and dab to cleanse, prior to next application. -no osteomyelitis per Xray 2.Right Great toe Callus unchanged - no topical interventions needed at this time. Pt was reporting he belives ants and or maggots were living with in the callus and was attempting to pick at callus. Assured pt there were not s/s of maggot or ants in trapped under the callus and encouraged him to put his sock on and not attempt to remove the callus - he replaced his sock. Continue to recommend Podiatry follow up outpatient for callus removal. Patient educated on: diagnosis, medication risk/benefits and medical condition Informed Consent: understands, does not understand and further education needed Reason for continued inpatient stay Substantial Risk for: inability to function Time Spent With Patient Time: Total time managing care of this patient today ____ minutes.
--- NOTE | 2023-08-18 11:13 | HO.WOUND ---
Wound Consult: Follow up 32yr old male admitted to [facility] [place] on?07/10/23 20:11 to the Inpatient Behavioral Health Unit - See progress notes and H&P for detailed history. Follow up wound assessment. Initially Car is agreeable to assessment. From my initial consultation with Car he reports he is unclear as to how the wounds originated but reports he believes wearing the same shoes and not being able to take care of them is impacting wound development. The patient reports neuropathy to both feet at times. Todays assessment he has sneakers on with no socks and no dressing in place. He appeared and reported being tired because of the meds he was given. He allowed me to clean his wounds and limited assessment - he became agitated and refused further assessment and dressing application. He reports he is not wearing a dressing because his body was telling him it needed to left open and that was what was going to allow it to heal. He reports the dressing we are using are making the wounds worse. Of note does not appear to be consistent use of dressings to corroborate dressings worsening wounds. The wounds do not appear infected and are clean red moist tissue after cleansing with significant maceration to the edges of the anterior and plantar wounds. There are new wound locations to the medial side of the right foot - shallow ulceration with pink wound bed after cleaning and removal of dried drainage. Partial thickness wounds are noted to the medial ankle - pt noted to be scratching the area. Dr. Dey rejoined in attempts to encourage Car to allow dressing application - the patient reported frustration and irritation and did not allow dressing application at this time. He preferred triple antibiotic ointment and a bandaid or no dressing. We discussed Alginate AG and I opened the package for him to see and touch - ultimately he refused and no dressing was placed. He did apply socks. At this time a cover dressing is preferred to no dressing. There is some concern as the left foot remains with pink erythema no worse than last assessment no heat noted but an increase in swelling is noted to the left foot. Provider and direct care nurse aware and will monitor. The alginate is the preferred dressing but if he is refusing then Triad with a cover dressing is a better alternative to nothing to that point a dressing to protect from friction within his shoe is better than no dressing. Will continue to follow and attemot assessment when direct care team feels he is agreeable. Will continue to follow. At time of discharge consider referral to outpt wound clinic and or Podiatry for nail care - Great Toe nails slightly trimmed at todays assessment. Right Great toe Callus unchanged - no topical interventions needed at this time. Continue to recommend Podiatry follow up outpatient for callus removal. Left Great Toe Etiology: Neuropathic Wound Measurements: Dorsal Wound - red pink moist partial thickness tissue loss - periwound remains significantly macerated with blanchable erythema and increase in swelling noted. Posterior Wound - pink red wound bed - macerated edges and callused edges Drainage / Odor: no purulence noted - overall foot odor noted - he is not wearing socks with his shoes and over all his feet wound benefit from bathing. Edges: ?attached and macerated Natalie wound: ?Callused wound edge - No Induration, Fluctuance or Warmth noted Pain: Pt denies pain and tenderness - reports neuropathy Goals of Treatment: ? Moisture Management with Alginate - No new topical recommendations needed at this time - continue to cover with alginate however if pt is refusing alginate packing may cover and apply Triad to wound bed and periwound and cover with foam and or dry dressing. Keep covered with what patient is agreeable to. Recommendations: 1. Provide adequate and supplemental nutrition. 2. Left Great Toe (Dorsal and Posterior Wounds) - Cleanse with NS, pat dry. Apply Triad to periwound - cover wound beds with Alginate AG (Durafiber AG), (Lightly pack posterior wound bed) cover with foam dressing, consider dry gauze dressing to posterior wound as foam may be donating some moisture to periwound. Change Daily. Be sure to remove alginate packing to posterior wound - may need to be moistened prior to removal. If Alginate is refused may apply Triad to wound bed and periwound and cover with foam and or dry dressing. Triad will stick to wound bed - do not scrub off at next dressing change this will cause further tissue damage, pat and dab to cleanse, prior to next application. Re-consult wound care Nurse for wound deterioration or wound changes.
[2023-08-18] MEDS: Acetaminophen 325 MG TABLET 650 MG PO (16:17)
[2023-08-18 19:58] VITALS: RESP 18
[2023-08-18] MEDS: clonazePAM 1 MG TABLET PO (20:44)
[2023-08-18] MEDS: cloZAPine 25 MG TABLET 50 MG PO (22:51)
[2023-08-19 06:00] VITALS: RESP 18
[2023-08-19] MEDS: Nicotine Polacrilex 2 MG GUM 4 MG BUCCAL ×4 (06:51→20:49)
[2023-08-19] MEDS: Acetaminophen 325 MG TABLET 650 MG PO (06:51)
[2023-08-19] MEDS: Gabapentin 300 MG CAPSULE 600 MG PO ×3 (08:01→22:04)
[2023-08-19] MEDS: methADONE HCl 20 MG/2 ML ORAL.CONC 85 MG PO (08:02)
[2023-08-19] MEDS: clonazePAM 0.5 MG TABLET PO ×2 (08:02→13:44)
[2023-08-19] MEDS: Nicotine 21 MG PATCH.TD24 TRANSDERMA (08:04)
--- NOTE | 2023-08-19 13:08 | P.PNPSI_ITS ---
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 to her I like it when roman in my mouth, like tits and penis... 08/13 No?change?in?presentation;?discussed?with?patient?change?of?med?and?the?need?for ?labs?but?he?refused. A NC?lab?necessary?to?start?clozapine?falls?into?court?order.??Patient?needed?staf f/security?to?hold?him for?blood?draw and pt very upset about it. Regarding?medication?decisions:??Will?switch?patient?to?clozapine P atient?has?had?numerous?hospitalizations?this?past?year,?either?with?little?bene fit?from?medications?or?quickly?discontinuing?them On?discharge?And?again?becoming?psychotic?and?unsafe. Even?at?nearly?max?doses?of?ziprasidone (or zyprex),?patient?has?remained?with?significantly?and?life?impairing?psychosis. Patient's?suicidality?has?lessened?and?he's?future?oriented (though with?completely?unrealistic?goals), However, he remains psychotic, with paranoid?delusions,?internally?preoccupied,no?insight,?disorganized in speech and behavior,?sexual inapropriate,talking?to?himself,?disheveled?and?isolative. Due to parnoia, he's not letting staff address his foot wound which needs to be attended to daily. He?is?taking?medication?only?because?it?is?court?ordered and monitored. Though?slightly?improved,?were?he?to?discharge,?he?still could not?function?on?his?own?in?the?community; he has no insight, has repeatedly tried to avoid taking medications and there?is?no?reason?to?expect?he would?remain adherent. He would quickly?decompensate, become suicidal. ?Discussed?at?length?with?team.??Patient?very?much?does?not?want?blood?draws,?ho wever C lozapine?remains?the?most?likely?effective?medication?available?and?patient's?be st?chance?at?gaining?insight?into?his?illness?and Progressing?him?towards?being?able?to?function?in?the?community. -Clozapine least likely to cause dystonic reaction which he had from Haldol, making other 1st generation antipsychotics less optimal -plan to change meds discussed with patient who was unable to appreciate reasoning, his illness and limits in functioning. 08/15/23: Continue current regimen and plans 08/16/2023: Continue current regimen and plans. Zyprexa in reaction to Clozaril refusal changed to Zyprexa Zydis 10 mg b.i.d. p.r.n. 08/17 Patient says he has no longer sedated and that was only because of Zyprexa and as asking for clonazepam to be returned and gabapentin increase back to former dose.. [employer] agreed saying it was just held out of concern. Patient took Clozaril today and said he would continue to do so. Otherwise remains with same presentation, paranoid delusions, disorganized behavior 08/18 change clozapine to q.h.s. since patient complains of daytime sedation -refuses to let would nurse or anyone treat feet 08/19 continue current treatment plan; will leave clozapine at current dose for tonight but then continue titration PLAN: Section 8/8b involuntary commitment and substituted judgment ordered Q 15 minute checks Clozapine OdT 50 mg qhs. (* COURT ORDERED; cannot refuse.. Give IM ziprasidone if refuses p.o.) Continue Clonazepam 0.5 mg to bid Continue clonazepam 1mg qhs to help pt sleep who complains of AH, delusions making it hard to sleep continue Gabapentin 600 mg t.i.d Methadone 85 mg daily ANC 6800 Lft's mild-moderately elevated, likely due to Ziprasidone Medication options per court ordered substituted judgment: Clozapine Ziprasidone not effective even at therapeutic doses Thorazine Fluphenazine Perphenazine Zyprexa Past med trials: Zyprexa: not effective Seroquel sedation Haldol: dystonic reaction/tongue swelling, Risperdal: emotional numbing. Right Great Toe: Assessment 08/06/23 1. Left Great Toe (Dorsal and Posterior Wounds) - Cleanse with NS, pat dry. Apply Triad to periwound - cover wound beds with Alginate AG (Durafiber AG), (Lightly pack posterior wound bed) cover with foam dressing, consider dry gauze dressing to posterior wound as foam may be donating some moisture to periwound. Change Daily. Be sure to remove alginate packing to posterior wound - may need to be moistened prior to removal. If Alginate is refused may apply Triad to wound bed and periwound and cover with foam and or dry dressing. Triad will stick to wound bed - do not scrub off at next dressing change this will cause further tissue damage, pat and dab to cleanse, prior to next application. -no osteomyelitis per Xray 2.Right Great toe Callus unchanged - no topical interventions needed at this time. Pt was reporting he belives ants and or maggots were living with in the callus and was attempting to pick at callus. Assured pt there were not s/s of maggot or ants in trapped under the callus and encouraged him to put his sock on and not attempt to remove the callus - he replaced his sock. Continue to recommend Podiatry follow up outpatient for callus removal. Patient educated on: diagnosis Informed Consent: does not understand Reason for continued inpatient stay Substantial Risk for: inability to function Time Spent With Patient Time: Total time managing care of this patient today ____ minutes.
[2023-08-19] MEDS: Nicotine Polacrilex 2 MG GUM BUCCAL (18:19)
[2023-08-19] MEDS: clonazePAM 1 MG TABLET PO (19:57)
[2023-08-19] MEDS: cloZAPine ODT 25 MG TAB.RAPDIS 50 MG PO (22:04)
[2023-08-20] MEDS: Nicotine Polacrilex 2 MG GUM 4 MG BUCCAL ×4 (03:00→20:21)
[2023-08-20 06:00] VITALS: RESP 18
[2023-08-20 07:00] VITALS: BMI 23.1
[2023-08-20] MEDS: Gabapentin 300 MG CAPSULE 600 MG PO ×3 (08:04→22:10)
[2023-08-20] MEDS: methADONE HCl 20 MG/2 ML ORAL.CONC 85 MG PO (08:04)
[2023-08-20] MEDS: Nicotine Polacrilex 2 MG GUM BUCCAL ×2 (08:05→14:39)
[2023-08-20] MEDS: clonazePAM 0.5 MG TABLET PO ×3 (08:05→14:39)
[2023-08-20] MEDS: Nicotine 21 MG PATCH.TD24 TRANSDERMA (08:07)
--- NOTE | 2023-08-20 09:06 | HO.WOUND ---
Wound Consult: Follow up attempted 32yr old M admitted to [facility] [place] on 07/10/23 to Behavioral Health Unit - See progress notes and H&P for detailed history.? Arrival to unit patient was pacing the unit - he recalls my role in his care and refused assessment today of the left foot - the patient is noted to be in the same sneakers and socks in place. Direct care nurse notified patient refused assessment. Will attempt assessment at future date and or time.?
--- NOTE | 2023-08-20 09:59 | P.PNPSI_ITS ---
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 and?or?FRED...??He?says?he?does?not?feel?it?is?quite?as?bad?as?when?he?1st?was?ad mitted. However,later on?he?accused?a?nurse?that?she?was?part?of?the?FRED?and?would?not?let?her?examine ?his?foot w ound.??Also?he?made?a?sexually?inappropriate?remark?to?her,?talking?about?a?medi cation?squirting...and said to her I like it when roman in my mouth, like tits and penis... 08/13 No?change?in?presentation;?discussed?with?patient?change?of?med?and?the?need?for ?labs?but?he?refused. A NC?lab?necessary?to?start?clozapine?falls?into?court?order.??Patient?needed?staf f/security?to?hold?him for?blood?draw and pt very upset about it. Regarding?medication?decisions:??Will?switch?patient?to?clozapine P atient?has?had?numerous?hospitalizations?this?past?year,?either?with?little?bene fit?from?medications?or?quickly?discontinuing?them On?discharge?And?again?becoming?psychotic?and?unsafe. Even?at?nearly?max?doses?of?ziprasidone (or zyprex),?patient?has?remained?with?significantly?and?life?impairing?psychosis. Patient's?suicidality?has?lessened?and?he's?future?oriented (though with?completely?unrealistic?goals), However, he remains psychotic, with paranoid?delusions,?internally?preoccupied,no?insight,?disorganized in speech and behavior,?sexual inapropriate,talking?to?himself,?disheveled?and?isolative. Due to parnoia, he's not letting staff address his foot wound which needs to be attended to daily. He?is?taking?medication?only?because?it?is?court?ordered and monitored. Though?slightly?improved,?were?he?to?discharge,?he?still could not?function?on?his?own?in?the?community; he has no insight, has repeatedly tried to avoid taking medications and there?is?no?reason?to?expect?he would?remain adherent. He would quickly?decompensate, become suicidal. ?Discussed?at?length?with?team.??Patient?very?much?does?not?want?blood?draws,?ho wever C lozapine?remains?the?most?likely?effective?medication?available?and?patient's?be st?chance?at?gaining?insight?into?his?illness?and Progressing?him?towards?being?able?to?function?in?the?community. -Clozapine least likely to cause dystonic reaction which he had from Haldol, making other 1st generation antipsychotics less optimal -plan to change meds discussed with patient who was unable to appreciate reasoning, his illness and limits in functioning. 08/15/23: Continue current regimen and plans 08/16/2023: Continue current regimen and plans. Zyprexa in reaction to Clozaril refusal changed to Zyprexa Zydis 10 mg b.i.d. p.r.n. 08/17 Patient says he has no longer sedated and that was only because of Zyprexa and as asking for clonazepam to be returned and gabapentin increase back to former dose.. Well Services Operator agreed saying it was just held out of concern. Patient took Clozaril today and said he would continue to do so. Otherwise remains with same presentation, paranoid delusions, disorganized behavior 08/18 change clozapine to q.h.s. since patient complains of daytime sedation -refuses to let would nurse or anyone treat feet 08/19 continue current treatment plan; will leave clozapine at current dose for tonight but then continue titration 08/20 allowed blood draw; little more lighthearted and joked with quality analyst/technical writer PLAN: Section 8/8b involuntary commitment and substituted judgment ordered Q 15 minute checks increased to Clozapine OdT 75 mg qhs. (* COURT ORDERED; cannot refuse.. Give IM ziprasidone if refuses p.o.) increased to Clonazepam 1mg to bid continue Gabapentin 600 mg t.i.d Methadone 85 mg daily ANC 6800 Lft's mild-moderately elevated, likely due to Ziprasidone Medication options per court ordered substituted judgment: Clozapine Ziprasidone not effective even at therapeutic doses Thorazine Fluphenazine Perphenazine Zyprexa Past med trials: Zyprexa: not effective Seroquel sedation Haldol: dystonic reaction/tongue swelling, Risperdal: emotional numbing. Right Great Toe: Assessment 08/06/23 1. Left Great Toe (Dorsal and Posterior Wounds) - Cleanse with NS, pat dry. Apply Triad to periwound - cover wound beds with Alginate AG (Durafiber AG), (Lightly pack posterior wound bed) cover with foam dressing, consider dry gauze dressing to posterior wound as foam may be donating some moisture to periwound. Change Daily. Be sure to remove alginate packing to posterior wound - may need to be moistened prior to removal. If Alginate is refused may apply Triad to wound bed and periwound and cover with foam and or dry dressing. Triad will stick to wound bed - do not scrub off at next dressing change this will cause further tissue damage, pat and dab to cleanse, prior to next application. -no osteomyelitis per Xray 2.Right Great toe Callus unchanged - no topical interventions needed at this time. Pt was reporting he belives ants and or maggots were living with in the callus and was attempting to pick at callus. Assured pt there were not s/s of maggot or ants in trapped under the callus and encouraged him to put his sock on and not attempt to remove the callus - he replaced his sock. Continue to recommend Podiatry follow up outpatient for callus removal. Patient educated on: diagnosis and medication risk/benefits Informed Consent: understands, does not understand and further education needed Reason for continued inpatient stay Substantial Risk for: inability to function Time Spent With Patient Time: Total time managing care of this patient today ____ minutes.
--- NOTE | 2023-08-20 11:22 | PC.NURSE ---
Car was pacing, walking back and forth on the hallway, appeared unstable on his feet, he was encourage to sit, was offered to lay down in his bed stated No, it's the Clozaril. Car walked in to the wall bumped head, hit right of forehead, upon assessment no redness noted, denied pain. Car asked to be put back on Zyprexa, Dr. Dey notified. Car was put on a one to one for safety.
[2023-08-20 14:46] LABS: WBCANC 5.8 X10*3/uL
[2023-08-20 18:00] VITALS: RESP 16
[2023-08-20 19:11] LABS: Neut%MD 57.7 %; Neutrophils Absolute Auto 3.3 x10*3/uL (2.0-8.3)
[2023-08-20] MEDS: clonazePAM 1 MG TABLET PO (20:23)
[2023-08-20] MEDS: cloZAPine ODT 25 MG TAB.RAPDIS 75 MG PO (22:10)
[2023-08-21 08:00] VITALS: RESP 18
[2023-08-21] MEDS: methADONE HCl 20 MG/2 ML ORAL.CONC 85 MG PO (09:13)
[2023-08-21] MEDS: Nicotine Polacrilex 2 MG GUM 4 MG BUCCAL ×7 (09:14→23:50)
[2023-08-21] MEDS: clonazePAM 1 MG TABLET PO ×2 (09:16→19:40)
[2023-08-21] MEDS: Gabapentin 300 MG CAPSULE 600 MG PO ×3 (09:16→23:01)
[2023-08-21] MEDS: Nicotine 21 MG PATCH.TD24 TRANSDERMA (09:16)
--- NOTE | 2023-08-21 09:51 | HO.PSYCHPN ---
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 said to her I like it when roman in my mouth, like tits and penis... 08/13 No?change?in?presentation;?discussed?with?patient?change?of?med?and?the?need?for?labs?but?he?refused. ANC?lab?necessary?to?start?clozapine?falls?into?court?order.??Patient?needed?staff/security?to?hold?him for?blood?draw and pt very upset about it. Regarding?medication?decisions:??Will?switch?patient?to?clozapine Patient?has?had?numerous?hospitalizations?this?past?year,?either?with?little?benefit?from?medications?or?quickly?discontinuing?them On?discharge?And?again?becoming?psychotic?and?unsafe. Even?at?nearly?max?doses?of?ziprasidone (or zyprex),?patient?has?remained?with?significantly?and?life?impairing?psychosis. Patient's?suicidality?has?lessened?and?he's?future?oriented (though with?completely?unrealistic?goals), However, he remains psychotic, with paranoid?delusions,?internally?preoccupied,no?insight,?disorganized in speech and behavior,?sexual inapropriate,talking?to?himself,?disheveled?and?isolative. Due to parnoia, he's not letting staff address his foot wound which needs to be attended to daily. He?is?taking?medication?only?because?it?is?court?ordered and monitored. Though?slightly?improved,?were?he?to?discharge,?he?still could not?function?on?his?own?in?the?community; he has no insight, has repeatedly tried to avoid taking medications and there?is?no?reason?to?expect?he would?remain adherent. He would quickly?decompensate, become suicidal. ?Discussed?at?length?with?team.??Patient?very?much?does?not?want?blood?draws,?however Clozapine?remains?the?most?likely?effective?medication?available?and?patient's?best?chance?at?gaining?insight?into?his?illness?and Progressing?him?towards?being?able?to?function?in?the?community. -Clozapine least likely to cause dystonic reaction which he had from Haldol, making other 1st generation antipsychotics less optimal -plan to change meds discussed with patient who was unable to appreciate reasoning, his illness and limits in functioning. 08/15/23: Continue current regimen and plans 08/16/2023: Continue current regimen and plans. Zyprexa in reaction to Clozaril refusal changed to Zyprexa Zydis 10 mg b.i.d. p.r.n. 08/17 Patient says he has no longer sedated and that was only because of Zyprexa and as asking for clonazepam to be returned and gabapentin increase back to former dose.. Optimization Consultant agreed saying it was just held out of concern. Patient took Clozaril today and said he would continue to do so. Otherwise remains with same presentation, paranoid delusions, disorganized behavior 08/18 change clozapine to q.h.s. since patient complains of daytime sedation -refuses to let would nurse or anyone treat feet 08/19 continue current treatment plan; will leave clozapine at current dose for tonight but then continue titration 08/20 allowed blood draw; little more lighthearted and joked with flex o writer operator 08/21 same presentation. Patient says he isn't really having voices anymore however it is very difficult to tell if patient is just saying what he knows staff is looking to hear. Behaviors remain disorganized, constant pacing, poor insight, will not let anyone address foot wound PLAN: Section 8/8b involuntary commitment and substituted judgment ordered Q 15 minute checks Continue Clozapine OdT 75 mg qhs. Will continue to titrate as clinically determined (* COURT ORDERED; cannot refuse.. Give IM ziprasidone if refuses p.o.) ANC 3.3 (08/20) Continue Clonazepam 1mg to bid; will hold morning dose or break it up if patient remains overly sedated continue Gabapentin 600 mg t.i.d Methadone 85 mg daily ANC 6800 Lft's mild-moderately elevated, likely due to Ziprasidone Medication options per court ordered substituted judgment: Clozapine Ziprasidone not effective even at therapeutic doses Thorazine Fluphenazine Perphenazine Zyprexa Past med trials: Zyprexa: not effective Seroquel sedation Haldol: dystonic reaction/tongue swelling, Risperdal: emotional numbing. Right Great Toe: Assessment 08/06/23 1. Left Great Toe (Dorsal and Posterior Wounds) - Cleanse with NS, pat dry. Apply Triad to periwound - cover wound beds with Alginate AG (Durafiber AG), (Lightly pack posterior wound bed) cover with foam dressing, consider dry gauze dressing to posterior wound as foam may be donating some moisture to periwound. Change Daily. Be sure to remove alginate packing to posterior wound - may need to be moistened prior to removal. If Alginate is refused may apply Triad to wound bed and periwound and cover with foam and or dry dressing. Triad will stick to wound bed - do not scrub off at next dressing change this will cause further tissue damage, pat and dab to cleanse, prior to next application. -no osteomyelitis per Xray 2.Right Great toe Callus unchanged - no topical interventions needed at this time. Pt was reporting he belives ants and or maggots were living with in the callus and was attempting to pick at callus. Assured pt there were not s/s of maggot or ants in trapped under the callus and encouraged him to put his sock on and not attempt to remove the callus - he replaced his sock. Continue to recommend Podiatry follow up outpatient for callus removal. Patient educated on: diagnosis and medication risk/benefits Informed Consent: understands, does not understand and further education needed Reason for continued inpatient stay Substantial Risk for: inability to function Time Spent With Patient Time: Total time managing care of this patient today ____ minutes.
[2023-08-21] MEDS: Nicotine Polacrilex 2 MG GUM BUCCAL (10:54)
[2023-08-21] MEDS: Acetaminophen 325 MG TABLET 650 MG PO (16:45)
[2023-08-21] MEDS: cloZAPine ODT 25 MG TAB.RAPDIS 75 MG PO (23:02)
[2023-08-22 06:00] VITALS: BP 144/92; PULSE 92; RESP 16; TEMP 36.6; O2SAT 96
[2023-08-22] MEDS: methADONE HCl 20 MG/2 ML ORAL.CONC 85 MG PO (08:13)
[2023-08-22] MEDS: Gabapentin 300 MG CAPSULE 600 MG PO ×3 (08:14→21:45)
[2023-08-22] MEDS: clonazePAM 1 MG TABLET PO ×2 (08:15→19:39)
[2023-08-22] MEDS: Nicotine 21 MG PATCH.TD24 TRANSDERMA (08:17)
[2023-08-22] MEDS: Nicotine Polacrilex 2 MG GUM 4 MG BUCCAL ×5 (08:21→21:45)
--- NOTE | 2023-08-22 10:12 | P.PNPSI_ITS ---
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 on?he?accused?a?nurse?that?she?was?part?of?the?FRED?and?would?not?let?her?examine ?his?foot w ound.??Also?he?made?a?sexually?inappropriate?remark?to?her,?talking?about?a?medi cation?squirting...and said to her I like it when roman in my mouth, like tits and penis... 08/13 No?change?in?presentation;?discussed?with?patient?change?of?med?and?the?need?for ?labs?but?he?refused. A NC?lab?necessary?to?start?clozapine?falls?into?court?order.??Patient?needed?staf f/security?to?hold?him for?blood?draw and pt very upset about it. Regarding?medication?decisions:??Will?switch?patient?to?clozapine P atient?has?had?numerous?hospitalizations?this?past?year,?either?with?little?bene fit?from?medications?or?quickly?discontinuing?them On?discharge?And?again?becoming?psychotic?and?unsafe. Even?at?nearly?max?doses?of?ziprasidone (or zyprex),?patient?has?remained?with?significantly?and?life?impairing?psychosis. Patient's?suicidality?has?lessened?and?he's?future?oriented (though with?completely?unrealistic?goals), However, he remains psychotic, with paranoid?delusions,?internally?preoccupied,no?insight,?disorganized in speech and behavior,?sexual inapropriate,talking?to?himself,?disheveled?and?isolative. Due to parnoia, he's not letting staff address his foot wound which needs to be attended to daily. He?is?taking?medication?only?because?it?is?court?ordered and monitored. Though?slightly?improved,?were?he?to?discharge,?he?still could not?function?on?his?own?in?the?community; he has no insight, has repeatedly tried to avoid taking medications and there?is?no?reason?to?expect?he would?remain adherent. He would quickly?decompensate, become suicidal. ?Discussed?at?length?with?team.??Patient?very?much?does?not?want?blood?draws,?kingsley Hood lozapine?remains?the?most?likely?effective?medication?available?and?patient's?be st?chance?at?gaining?insight?into?his?illness?and Progressing?him?towards?being?able?to?function?in?the?community. -Clozapine least likely to cause dystonic reaction which he had from Haldol, making other 1st generation antipsychotics less optimal -plan to change meds discussed with patient who was unable to appreciate reasoning, his illness and limits in functioning. 08/15/23: Continue current regimen and plans 08/16/2023: Continue current regimen and plans. Zyprexa in reaction to Clozaril refusal changed to Zyprexa Zydis 10 mg b.i.d. p.r.n. 08/17 Patient says he has no longer sedated and that was only because of Zyprexa and as asking for clonazepam to be returned and gabapentin increase back to former dose.. [employer] Helper agreed saying it was just held out of concern. Patient took Clozaril today and said he would continue to do so. Otherwise remains with same presentation, paranoid delusions, disorganized behavior 08/18 change clozapine to q.h.s. since patient complains of daytime sedation -refuses to let would nurse or anyone treat feet 08/19 continue current treatment plan; will leave clozapine at current dose for tonight but then continue titration 08/20 allowed blood draw; little more lighthearted and joked with expert medical writer 08/21 same presentation. Patient says he isn't really having voices anymore however it is very difficult to tell if patient is just saying what he knows staff is looking to hear. Behaviors remain disorganized, constant pacing, poor insight, will not let anyone address foot wound 08/22 patient is more sedated this morning. It is difficult to tell the cause of it. Is it because he continues to refuse to sleep and instead paces the hills and has been doing so for weeks? Is it because clonazepam was increased? Or is it because clozapine was titrated to quickly for him? Staff felt he was a little more confused this morning though this did seem to resolve. Because of this expert medical writer is lowering dose of Clozaril back to 25 mg and will titrate more slowly. Did not get a clonazepam level since patient gets traumatized with blood draws and if level supratherapeutic, this should be resolved by lowering dose. Will get level next time draw ANC. If patient remains too sedated, will again lower clonazepam dose in the morning PLAN: Section 8/8b involuntary commitment and substituted judgment ordered Q 15 minute checks TEMPORARILY LOWER TO Clozapine OdT 25 mg qhs.; patient transiently a little confused; will retitrate as clinically determined (* COURT ORDERED; cannot refuse.. Give IM ziprasidone if refuses p.o.) ANC 3.3 (08/20) Continue Clonazepam 1mg to bid; will hold morning dose or break it up if patient remains overly sedated continue Gabapentin 600 mg t.i.d Methadone 85 mg daily ANC 6800 Lft's mild-moderately elevated, likely due to Ziprasidone Medication options per court ordered substituted judgment: Clozapine Ziprasidone not effective even at therapeutic doses Thorazine Fluphenazine Perphenazine Zyprexa Past med trials: Zyprexa: not effective Seroquel sedation Haldol: dystonic reaction/tongue swelling, Risperdal: emotional numbing. Right Great Toe: Assessment 08/06/23 1. Left Great Toe (Dorsal and Posterior Wounds) - Cleanse with NS, pat dry. Apply Triad to periwound - cover wound beds with Alginate AG (Durafiber AG), (Lightly pack posterior wound bed) cover with foam dressing, consider dry gauze dressing to posterior wound as foam may be donating some moisture to periwound. Change Daily. Be sure to remove alginate packing to posterior wound - may need to be moistened prior to removal. If Alginate is refused may apply Triad to wound bed and periwound and cover with foam and or dry dressing. Triad will stick to wound bed - do not scrub off at next dressing change this will cause further tissue damage, pat and dab to cleanse, prior to next application. -no osteomyelitis per Xray 2.Right Great toe Callus unchanged - no topical interventions needed at this time. Pt was reporting he belives ants and or maggots were living with in the callus and was attempting to pick at callus. Assured pt there were not s/s of maggot or ants in trapped under the callus and encouraged him to put his sock on and not attempt to remove the callus - he replaced his sock. Continue to recommend Podiatry follow up outpatient for callus removal. Patient educated on: diagnosis and medication risk/benefits Informed Consent: understands, does not understand and further education needed Reason for continued inpatient stay Substantial Risk for: inability to function Time Spent With Patient Time: Total time managing care of this patient today ____ minutes.
[2023-08-22 16:11] VITALS: RESP 18
[2023-08-22] MEDS: cloZAPine ODT 25 MG TAB.RAPDIS PO (21:44)
[2023-08-22] MEDS: QUEtiapine Fumarate 100 MG TABLET PO (21:46)
[2023-08-22] MEDS: Melatonin 3 MG TABLET 6 MG PO (21:47)
[2023-08-22] MEDS: Melatonin 3 MG TABLET PO (21:49)
[2023-08-22] MEDS: Acetaminophen 325 MG TABLET 650 MG PO (22:01)
[2023-08-23] MEDS: Nicotine Polacrilex 2 MG GUM 4 MG BUCCAL ×3 (00:44→20:28)
[2023-08-23] MEDS: Nicotine Polacrilex 2 MG GUM BUCCAL ×2 (02:01→18:27)
[2023-08-23 09:15] VITALS: BP 121/66; PULSE 115; RESP 18; O2SAT 97
[2023-08-23] MEDS: clonazePAM 1 MG TABLET PO ×2 (09:26→20:28)
[2023-08-23] MEDS: Gabapentin 300 MG CAPSULE 600 MG PO ×3 (09:27→22:14)
[2023-08-23] MEDS: methADONE HCl 20 MG/2 ML ORAL.CONC 85 MG PO (09:29)
--- NOTE | 2023-08-23 15:44 | HO.PSYCHPN ---
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 ANC?lab?necessary?to?start?clozapine?falls?into?court?order.??Patient?needed?staff/security?to?hold?him for?blood?draw and pt very upset about it. Regarding?medication?decisions:??Will?switch?patient?to?clozapine Patient?has?had?numerous?hospitalizations?this?past?year,?either?with?little?benefit?from?medications?or?quickly?discontinuing?them On?discharge?And?again?becoming?psychotic?and?unsafe. Even?at?nearly?max?doses?of?ziprasidone (or zyprex),?patient?has?remained?with?significantly?and?life?impairing?psychosis. Patient's?suicidality?has?lessened?and?he's?future?oriented (though with?completely?unrealistic?goals), However, he remains psychotic, with paranoid?delusions,?internally?preoccupied,no?insight,?disorganized in speech and behavior,?sexual inapropriate,talking?to?himself,?disheveled?and?isolative. Due to parnoia, he's not letting staff address his foot wound which needs to be attended to daily. He?is?taking?medication?only?because?it?is?court?ordered and monitored. Though?slightly?improved,?were?he?to?discharge,?he?still could not?function?on?his?own?in?the?community; he has no insight, has repeatedly tried to avoid taking medications and there?is?no?reason?to?expect?he would?remain adherent. He would quickly?decompensate, become suicidal. ?Discussed?at?length?with?team.??Patient?very?much?does?not?want?blood?draws,?however Clozapine?remains?the?most?likely?effective?medication?available?and?patient's?best?chance?at?gaining?insight?into?his?illness?and Progressing?him?towards?being?able?to?function?in?the?community. -Clozapine least likely to cause dystonic reaction which he had from Haldol, making other 1st generation antipsychotics less optimal -plan to change meds discussed with patient who was unable to appreciate reasoning, his illness and limits in functioning. 08/15/23: Continue current regimen and plans 08/16/2023: Continue current regimen and plans. Zyprexa in reaction to Clozaril refusal changed to Zyprexa Zydis 10 mg b.i.d. p.r.n. 08/17 Patient says he has no longer sedated and that was only because of Zyprexa and as asking for clonazepam to be returned and gabapentin increase back to former dose.. Magazine Designer agreed saying it was just held out of concern. Patient took Clozaril today and said he would continue to do so. Otherwise remains with same presentation, paranoid delusions, disorganized behavior 08/18 change clozapine to q.h.s. since patient complains of daytime sedation -refuses to let would nurse or anyone treat feet 08/19 continue current treatment plan; will leave clozapine at current dose for tonight but then continue titration 08/20 allowed blood draw; little more lighthearted and joked with health underwriter 08/21 same presentation. Patient says he isn't really having voices anymore however it is very difficult to tell if patient is just saying what he knows staff is looking to hear. Behaviors remain disorganized, constant pacing, poor insight, will not let anyone address foot wound 08/22 patient is more sedated this morning. It is difficult to tell the cause of it. Is it because he continues to refuse to sleep and instead paces the hills and has been doing so for weeks? Is it because clonazepam was increased? Or is it because clozapine was titrated to quickly for him? Staff felt he was a little more confused this morning though this did seem to resolve. Because of this health underwriter is lowering dose of Clozaril back to 25 mg and will titrate more slowly. Did not get a clonazepam level since patient gets traumatized with blood draws and if level supratherapeutic, this should be resolved by lowering dose. Will get level next time draw ANC. If patient remains too sedated, will again lower clonazepam dose in the morning 08/23 continue tx plan, with clozapine lowered to 25mg for now PLAN: Section 8/8b involuntary commitment and substituted judgment ordered Q 15 minute checks TEMPORARILY LOWER TO Clozapine OdT 25 mg qhs.; patient transiently a little confused; will retitrate as clinically determined (* COURT ORDERED; cannot refuse.. Give IM ziprasidone if refuses p.o.) ANC 3.3 (08/20) Continue Clonazepam 1mg to bid; will hold morning dose or break it up if patient remains overly sedated continue Gabapentin 600 mg t.i.d Methadone 85 mg daily ANC 6800 Lft's mild-moderately elevated, likely due to Ziprasidone Medication options per court ordered substituted judgment: Clozapine Ziprasidone not effective even at therapeutic doses Thorazine Fluphenazine Perphenazine Zyprexa Past med trials: Zyprexa: not effective Seroquel sedation Haldol: dystonic reaction/tongue swelling, Risperdal: emotional numbing. Right Great Toe: Assessment 08/06/23 1. Left Great Toe (Dorsal and Posterior Wounds) - Cleanse with NS, pat dry. Apply Triad to periwound - cover wound beds with Alginate AG (Durafiber AG), (Lightly pack posterior wound bed) cover with foam dressing, consider dry gauze dressing to posterior wound as foam may be donating some moisture to periwound. Change Daily. Be sure to remove alginate packing to posterior wound - may need to be moistened prior to removal. If Alginate is refused may apply Triad to wound bed and periwound and cover with foam and or dry dressing. Triad will stick to wound bed - do not scrub off at next dressing change this will cause further tissue damage, pat and dab to cleanse, prior to next application. -no osteomyelitis per Xray 2.Right Great toe Callus unchanged - no topical interventions needed at this time. Pt was reporting he belives ants and or maggots were living with in the callus and was attempting to pick at callus. Assured pt there were not s/s of maggot or ants in trapped under the callus and encouraged him to put his sock on and not attempt to remove the callus - he replaced his sock. Continue to recommend Podiatry follow up outpatient for callus removal. Patient educated on: diagnosis and medication risk/benefits Informed Consent: understands, does not understand and further education needed Reason for continued inpatient stay Substantial Risk for: inability to function Time Spent With Patient Time: Total time managing care of this patient today ____ minutes.
[2023-08-23] MEDS: cloZAPine ODT 25 MG TAB.RAPDIS PO (22:14)
[2023-08-24] MEDS: Nicotine Polacrilex 2 MG GUM 4 MG BUCCAL ×6 (01:07→22:07)
[2023-08-24 06:00] VITALS: RESP 18
[2023-08-24] MEDS: methADONE HCl 20 MG/2 ML ORAL.CONC 85 MG PO (08:33)
[2023-08-24] MEDS: Gabapentin 300 MG CAPSULE 600 MG PO ×3 (08:34→22:00)
[2023-08-24] MEDS: clonazePAM 1 MG TABLET PO ×2 (08:34→22:39)
--- NOTE | 2023-08-24 09:05 | P.PNPSI_ITS ---
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 for now but strongly considering this as it is essential to know if this medication can be effective verses needing to again switch medications. 08/07 no change in presentation dry skin vs possible rash on b/l ankle; given benadryl for itchiness; will try lotion and monitor will get EKG and consider increasing Ziprasidone as no appreciable improvment/reduction of symptoms 08/10 says he's better, not feeling persecuted, but behaviors remain the same, internally preoccupied, pacing non-stop, self-dialoguing, isolative...concern is that nothing has really changed other than patient disclosing less qtc wnl. 08/12 today, SW and creative services writer met with patient. ?He?shared?about?some?plans?he?has?once?discharged,?which? 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 ?Patient?still?feels Persecuted?by they and?or?FRED...??He?says?he?does?not?feel?it?is?quite?as?bad?as?when?he?1st?was?ad mitted. However,later on?he?accused?a?nurse?that?she?was?part?of?the?FRED?and?would?not?let?her?examine ?his?foot w ound.??Also?he?made?a?sexually?inappropriate?remark?to?her,?talking?about?a?medi cation?squirting...and said to her I like it when roman in my mouth, like tits and penis... 08/13 No?change?in?presentation;?discussed?with?patient?change?of?med?and?the?need?for ?labs?but?he?refused. A NC?lab?necessary?to?start?clozapine?falls?into?court?order.??Patient?needed?staf f/security?to?hold?him for?blood?draw and pt very upset about it. Regarding?medication?decisions:??Will?switch?patient?to?clozapine P atient?has?had?numerous?hospitalizations?this?past?year,?either?with?little?bene fit?from?medications?or?quickly?discontinuing?them On?discharge?And?again?becoming?psychotic?and?unsafe. Even?at?nearly?max?doses?of?ziprasidone (or zyprex),?patient?has?remained?with?significantly?and?life?impairing?psychosis. Patient's?suicidality?has?lessened?and?he's?future?oriented (though with?completely?unrealistic?goals), However, he remains psychotic, with paranoid?delusions,?internally?preoccupied,no?insight,?disorganized in speech and behavior,?sexual inapropriate,talking?to?himself,?disheveled?and?isolative. Due to parnoia, he's not letting staff address his foot wound which needs to be attended to daily. He?is?taking?medication?only?because?it?is?court?ordered and monitored. Though?slightly?improved,?were?he?to?discharge,?he?still could not?function?on?his?own?in?the?community; he has no insight, has repeatedly tried to avoid taking medications and there?is?no?reason?to?expect?he would?remain adherent. He would quickly?decompensate, become suicidal. ?Discussed?at?length?with?team.??Patient?very?much?does?not?want?blood?draws,?ho wever C lozapine?remains?the?most?likely?effective?medication?available?and?patient's?be st?chance?at?gaining?insight?into?his?illness?and Progressing?him?towards?being?able?to?function?in?the?community. -Clozapine least likely to cause dystonic reaction which he had from Haldol, making other 1st generation antipsychotics less optimal -plan to change meds discussed with patient who was unable to appreciate reasoning, his illness and limits in functioning. 08/15/23: Continue current regimen and plans 08/16/2023: Continue current regimen and plans. Zyprexa in reaction to Clozaril refusal changed to Zyprexa Zydis 10 mg b.i.d. p.r.n. 08/17 Patient says he has no longer sedated and that was only because of Zyprexa and as asking for clonazepam to be returned and gabapentin increase back to former dose.. Deodorizer Operator agreed saying it was just held out of concern. Patient took Clozaril today and said he would continue to do so. Otherwise remains with same presentation, paranoid delusions, disorganized behavior 08/18 change clozapine to q.h.s. since patient complains of daytime sedation -refuses to let would nurse or anyone treat feet 08/19 continue current treatment plan; will leave clozapine at current dose for tonight but then continue titration 08/20 allowed blood draw; little more lighthearted and joked with creative services writer 08/21 same presentation. Patient says he isn't really having voices anymore however it is very difficult to tell if patient is just saying what he knows staff is looking to hear. Behaviors remain disorganized, constant pacing, poor insight, will not let anyone address foot wound 08/22 patient is more sedated this morning. It is difficult to tell the cause of it. Is it because he continues to refuse to sleep and instead paces the hills and has been doing so for weeks? Is it because clonazepam was increased? Or is it because clozapine was titrated to quickly for him? Staff felt he was a little more confused this morning though this did seem to resolve. Because of this creative services writer is lowering dose of Clozaril back to 25 mg and will titrate more slowly. Did not get a clonazepam level since patient gets traumatized with blood draws and if level supratherapeutic, this should be resolved by lowering dose. Will get level next time draw ANC. If patient remains too sedated, will again lower clonazepam dose in the morning 08/23 continue tx plan, with clozapine lowered to 25mg for now 08/24 no longer sedated; irritable; limited insight. Denying SI or AH and saying he feels better on the new medication. Still however with disorganized behaviors and refusing to let his feet be examined/treated; discussed refusal as relevant to his state of mind, that if thinking clearly would want tx to avoid infection and its consequences PLAN: Section 8/8b involuntary commitment and substituted judgment ordered Q 15 minute checks Continue Clozapine OdT 25 mg qhs.; (* COURT ORDERED; cannot refuse.. Give IM ziprasidone if refuses p.o.) -was transiently a little confused during previous titration; will retitrate more slowly Continue Clonazepam 1mg to bid; will hold morning dose or break it up if patient remains overly sedated continue Gabapentin 600 mg t.i.d Methadone 85 mg daily ANC 3.3 (08/20) ANC 6800 Lft's mild-moderately elevated, likely due to Ziprasidone Medication options per court ordered substituted judgment: Clozapine Ziprasidone not effective even at therapeutic doses Thorazine Fluphenazine Perphenazine Zyprexa Past med trials: Zyprexa: not effective Seroquel sedation Haldol: dystonic reaction/tongue swelling, Risperdal: emotional numbing. Right Great Toe: Assessment 08/06/23 1. Left Great Toe (Dorsal and Posterior Wounds) - Cleanse with NS, pat dry. Apply Triad to periwound - cover wound beds with Alginate AG (Durafiber AG), (Lightly pack posterior wound bed) cover with foam dressing, consider dry gauze dressing to posterior wound as foam may be donating some moisture to periwound. Change Daily. Be sure to remove alginate packing to posterior wound - may need to be moistened prior to removal. If Alginate is refused may apply Triad to wound bed and periwound and cover with foam and or dry dressing. Triad will stick to wound bed - do not scrub off at next dressing change this will cause further tissue damage, pat and dab to cleanse, prior to next application. -no osteomyelitis per Xray 2.Right Great toe Callus unchanged - no topical interventions needed at this time. Pt was reporting he belives ants and or maggots were living with in the callus and was attempting to pick at callus. Assured pt there were not s/s of maggot or ants in trapped under the callus and encouraged him to put his sock on and not attempt to remove the callus - he replaced his sock. Continue to recommend Podiatry follow up outpatient for callus removal. Patient educated on: diagnosis, medication risk/benefits and medical condition Informed Consent: does not understand Reason for continued inpatient stay Substantial Risk for: inability to function Time Spent With Patient Time: Total time managing care of this patient today ____ minutes.
[2023-08-24] MEDS: Nicotine 21 MG PATCH.TD24 TRANSDERMA (11:48)
[2023-08-24] MEDS: Nicotine Polacrilex 2 MG GUM BUCCAL (18:24)
[2023-08-24] MEDS: cloZAPine ODT 25 MG TAB.RAPDIS PO (22:04)
[2023-08-25] MEDS: Nicotine Polacrilex 2 MG GUM 4 MG BUCCAL ×6 (05:09→20:00)
[2023-08-25 06:00] VITALS: RESP 18
[2023-08-25] MEDS: methADONE HCl 20 MG/2 ML ORAL.CONC 85 MG PO (08:50)
[2023-08-25] MEDS: Gabapentin 300 MG CAPSULE 600 MG PO ×3 (08:51→21:54)
[2023-08-25] MEDS: Nicotine 21 MG PATCH.TD24 TRANSDERMA (08:51)
[2023-08-25] MEDS: clonazePAM 1 MG TABLET PO ×2 (08:51→18:56)
--- NOTE | 2023-08-25 09:17 | HO.PSYCHPN ---
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 and?or?FRED...??He?says?he?does?not?feel?it?is?quite?as?bad?as?when?he?1st?was?admitted. However,later on?he?accused?a?nurse?that?she?was?part?of?the?FRED?and?would?not?let?her?examine?his?foot wound.??Also?he?made?a?sexually?inappropriate?remark?to?her,?talking?about?a?medication?squirting...and said to her I like it when roman in my mouth, like tits and penis... 08/13 No?change?in?presentation;?discussed?with?patient?change?of?med?and?the?need?for?labs?but?he?refused. ANC?lab?necessary?to?start?clozapine?falls?into?court?order.??Patient?needed?staff/security?to?hold?him for?blood?draw and pt very upset about it. Regarding?medication?decisions:??Will?switch?patient?to?clozapine Patient?has?had?numerous?hospitalizations?this?past?year,?either?with?little?benefit?from?medications?or?quickly?discontinuing?them On?discharge?And?again?becoming?psychotic?and?unsafe. Even?at?nearly?max?doses?of?ziprasidone (or zyprex),?patient?has?remained?with?significantly?and?life?impairing?psychosis. Patient's?suicidality?has?lessened?and?he's?future?oriented (though with?completely?unrealistic?goals), However, he remains psychotic, with paranoid?delusions,?internally?preoccupied,no?insight,?disorganized in speech and behavior,?sexual inapropriate,talking?to?himself,?disheveled?and?isolative. Due to parnoia, he's not letting staff address his foot wound which needs to be attended to daily. He?is?taking?medication?only?because?it?is?court?ordered and monitored. Though?slightly?improved,?were?he?to?discharge,?he?still could not?function?on?his?own?in?the?community; he has no insight, has repeatedly tried to avoid taking medications and there?is?no?reason?to?expect?he would?remain adherent. He would quickly?decompensate, become suicidal. ?Discussed?at?length?with?team.??Patient?very?much?does?not?want?blood?draws,?however Clozapine?remains?the?most?likely?effective?medication?available?and?patient's?best?chance?at?gaining?insight?into?his?illness?and Progressing?him?towards?being?able?to?function?in?the?community. -Clozapine least likely to cause dystonic reaction which he had from Haldol, making other 1st generation antipsychotics less optimal -plan to change meds discussed with patient who was unable to appreciate reasoning, his illness and limits in functioning. 08/15/23: Continue current regimen and plans 08/16/2023: Continue current regimen and plans. Zyprexa in reaction to Clozaril refusal changed to Zyprexa Zydis 10 mg b.i.d. p.r.n. 08/17 Patient says he has no longer sedated and that was only because of Zyprexa and as asking for clonazepam to be returned and gabapentin increase back to former dose.. Personnel Clerks Supervisor agreed saying it was just held out of concern. Patient took Clozaril today and said he would continue to do so. Otherwise remains with same presentation, paranoid delusions, disorganized behavior 08/18 change clozapine to q.h.s. since patient complains of daytime sedation -refuses to let would nurse or anyone treat feet 08/19 continue current treatment plan; will leave clozapine at current dose for tonight but then continue titration 08/20 allowed blood draw; little more lighthearted and joked with abstract writer 08/21 same presentation. Patient says he isn't really having voices anymore however it is very difficult to tell if patient is just saying what he knows staff is looking to hear. Behaviors remain disorganized, constant pacing, poor insight, will not let anyone address foot wound 08/22 patient is more sedated this morning. It is difficult to tell the cause of it. Is it because he continues to refuse to sleep and instead paces the hills and has been doing so for weeks? Is it because clonazepam was increased? Or is it because clozapine was titrated to quickly for him? Staff felt he was a little more confused this morning though this did seem to resolve. Because of this abstract writer is lowering dose of Clozaril back to 25 mg and will titrate more slowly. Did not get a clonazepam level since patient gets traumatized with blood draws and if level supratherapeutic, this should be resolved by lowering dose. Will get level next time draw ANC. If patient remains too sedated, will again lower clonazepam dose in the morning 08/23 continue tx plan, with clozapine lowered to 25mg for now 08/24 no longer sedated; irritable; limited insight. Denying SI or AH and saying he feels better on the new medication. Still however with disorganized behaviors and refusing to let his feet be examined/treated; discussed refusal as relevant to his state of mind, that if thinking clearly would want tx to avoid infection and its consequences 08/25 Patient remains psychotic and difficult with which to engage. Continues to walk up and down the hills nonstop, talking to himself, making odd hand gestures. When asked about psychiatric/psychotic symptoms he denies them however there is no improvement in his behavior at all which remains disorganized. Intermittently incontinent of urine; although Clozaril can cause nocturnal enuresis, that patient becomes overly tired since he consistently it seems more likely that this incontinence is due to patient becoming excessively tired as he consistently refuses to let himself sleep in order to pace the halls. Will continue to titrate Clozaril. Although he verbally says he is doing better, denying voices or worried about persecution, his behaviors remain disorganized; his insight and judgment remain severely impaired as revealed by his refusal to have wound care, nursing examine or treat his feet even though he has been repeatedly educated on the serious risk of refusing treatment, including the possibility of eventual amputation. Patient clearly enjoys walking and he wants his feet to heal (having told abstract writer so several times, but adding he does not trust proposed tx, thinking they'll make his foot worse...and saying he thinks they are getting better) and if patient were organized in his thinking or free from paranoid delusions,, he would want and except treatment. -Patient has thus far been refusing to let wound nurse or any nurse examine or treat his feet. Today however he allowed nursing, wound nurse and abstract writer to assess which revealed concerning cellulitis of left lower extremity. He did allow wound nurse to bathe his feet but would not allow any additional treatment or bandaging with appropriate material. -Hospitalist consult placed to further assess and start antibiotics. PLAN: Section 8/8b involuntary commitment and substituted judgment ordered Q 15 minute checks Continue Clozapine OdT 25 mg qhs.; (* COURT ORDERED; cannot refuse.. Give IM ziprasidone if refuses p.o.) -was transiently a little confused during previous titration; will retitrate more slowly ADD Clozapine 12.5mg qhs (as part of titration) Continue Clonazepam 1mg to bid; continue Gabapentin 600 mg t.i.d Methadone 85 mg daily ANC 3.3 (08/20) ANC 6800 Lft's mild-moderately elevated, likely due to Ziprasidone Medication options per court ordered substituted judgment: Clozapine Ziprasidone not effective even at therapeutic doses Thorazine Fluphenazine Perphenazine Zyprexa Past med trials: Zyprexa: not effective Seroquel sedation Haldol: dystonic reaction/tongue swelling, Risperdal: emotional numbing. Right Great Toe: Assessment as of 08/06/23 1. Left Great Toe (Dorsal and Posterior Wounds) - Cleanse with NS, pat dry. Apply Triad to periwound - cover wound beds with Alginate AG (Durafiber AG), (Lightly pack posterior wound bed) cover with foam dressing, consider dry gauze dressing to posterior wound as foam may be donating some moisture to periwound. Change Daily. Be sure to remove alginate packing to posterior wound - may need to be moistened prior to removal. If Alginate is refused may apply Triad to wound bed and periwound and cover with foam and or dry dressing. Triad will stick to wound bed - do not scrub off at next dressing change this will cause further tissue damage, pat and dab to cleanse, prior to next application. -no osteomyelitis per Xray 2.Right Great toe Callus unchanged - no topical interventions needed at this time. Pt was reporting he belives ants and or maggots were living with in the callus and was attempting to pick at callus. Assured pt there were not s/s of maggot or ants in trapped under the callus and encouraged him to put his sock on and not attempt to remove the callus - he replaced his sock. Continue to recommend Podiatry follow up outpatient for callus removal. Patient educated on: diagnosis, medication risk/benefits and medical condition Informed Consent: does not understand Reason for continued inpatient stay Substantial Risk for: inability to function Time Spent With Patient Time: Total time managing care of this patient today ____ minutes.
[2023-08-25] MEDS: Nicotine Polacrilex 2 MG GUM BUCCAL (14:24)
--- NOTE | 2023-08-25 16:19 | HO.WOUND ---
Wound Consult: Follow up 32yr old male admitted to [facility] on?07/10/23 20:11 to the Inpatient Behavioral Health Unit - See progress notes and H&P for detailed history. Follow up wound assessment - received message from direct care nurse patient was willing to allow foot soak and wound assessment. Arrival to the unit the patient was agreeable to a foot soak and a limited assessment - unfortunately the left leg is concerning at this time - Dr. Dey to consult hospitalist for cellultits. The leg was only assessed from the calf down. There is significant swelling noted, redness and warmth. Initially the patient denied pain and or tenderness but as the consult progressed he reported tenderness and tightness to the leg when his leg was washed. He denied understanding the concern with redness and swelling. I attempted to explain the concerns and he reported at various times during the consult that he did not recognize a problem, he felt there were maggots in his skin and that the walking and no treatment was helping. I attempted to point out the concern that the no treatment and lack of care was not helping in fact the leg looks worse - he disagreed. Today he was wearing the same shoes but did have socks in place. No dressings in place and sock was stuck to the wound bed at the time of my assessment. Unfortunately Car was not agreeable to any topical care except for a foot soak and wash and a bnadaid. There are certainly more appropriate dressings to consider however regular cleaning and a covering will additionally benefit the wound. The patient agreed to soaking and washing his feet 3 times a day in warm water with PH balanced soap. Dry well between toes. Cover wound beds with dry gauze, and tape or bandaids. If patient is agreeable Alginate / Durafiber should be considered for moisture management. The patient seemed to enjoy and relax somewhat during the foot soak and washing - he repeatedly stated it felt good. The benefit of the foot soaks will also provide time off of his feet and pacing the unit. Patient was given new shoes provided by his direct care nurse but unfortunately the shoe did not fit due to the significant swelling of his left foot. New shoes will benefit from a clean standpoint and a cushioned sole. I encouraged Car to elevate his leg throughout the day and when he was sleeping with use of pillows - he was frustrated and tired of the assessment and discussion by this time and was not agreeable to elevation. At this time a cover dressing remains preferred to no dressing. The alginate is the preferred dressing but if he is refusing then Triad with a cover dressing is a better alternative to nothing. It will protect from friction within his shoe. Will continue to follow and attempt assessment next week. At time of discharge consider referral to outpt wound clinic and or Podiatry for nail care. Right Great toe Callus unchanged - remains intact with macerated edges - no topical interventions needed at this time. Foot soak and cleansing with regular sock changes will aid in keeping foot dry and less moist. Continue to recommend Podiatry follow up outpatient for callus removal. Redness and swelling noted Prior to cleansing Plantar - prior to cleansing Left Great Toe Etiology: Neuropathic Wound Measurements: see chart for details Dorsal Wound - red pink moist partial thickness tissue loss - periwound remains significantly macerated with blanchable erythema and increase in firm swelling noted - warmth noted - concern for cellulitits Provider to consult Medical team Posterior Wound - pink red wound bed - macerated edges and callused edges Drainage / Odor: no purulence noted - overall foot odor noted - decrease in odor after foot washing and soak Edges: ?attached and macerated Natalie wound: ?Callused macerated wound edge - No flutuance noted Pain: Pt reported tightness and tenderness to the left leg Goals of Treatment: ? Moisture Management with Alginate if agreeable and protect from trauma and friction with a cover dressing - No new topical recommendations needed at this time - continue to cover with alginate however if pt is refusing alginate packing may cover and apply Triad to wound bed and periwound and cover with foam and or dry dressing. Keep covered with what patient is agreeable to. Recommendations: 1. Provide adequate and supplemental nutrition. 2. Left Great Toe (Dorsal and Posterior Wounds) - Soak and wash bilateral feet 3 times a day in warm water with PH balanced soap. Dry well between toes. Cover wound beds with dry gauze, and tape or bandaids. If patient is agreeable see below for more topical interventions. Patient should change his socks daily when possible. Cleanse with NS, pat dry. Apply Triad to periwound - cover wound beds with Alginate AG (Durafiber AG), Cover dry gauze secure with tape. Change Daily. Be sure to remove alginate - may need to be moistened prior to removal. If Alginate is refused may apply Triad to wound bed and periwound and cover with foam and or dry dressing. Triad will stick to wound bed - do not scrub off at next dressing change this will cause further tissue damage, pat and dab to cleanse, prior to next application. Re-consult wound care Nurse for wound deterioration or wound changes.
--- NOTE | 2023-08-25 17:31 | HO.SKINPHOTO ---
Location:Left Great toe wound Category: Stage: Length: Width: Depth: cm Location: Left Plantar Wound Category: Stage: Length: Width: Depth: cm Location: Left Leg swelling Category: Stage: Length: Width: Depth: cm Location: Left Heel Fissure Category: Stage: Length: Width: Depth: cm Location: Category: Stage: Length: Width: Depth: cm Location: Category: Stage: Length: Width: Depth: cm
--- NOTE | 2023-08-25 17:42 | PC.NURSE ---
Pt was seen by wound RN and Hospitalist. Please see wound assessment report. Hospitalist starting on antibiotics for infection. Recommended to take Doxycycline with large amounts of food and a large glass of water. Do not lie down for at least an hour post med administration.
--- NOTE | 2023-08-25 18:00 | P.CONHOSP_ITS ---
History of Present Illness Data of Consult Service Date: 08/25/23 Requesting physician: Geronimo Dey Primary Care Provider: Unknown Physician HPI Reason for consult: lle cellulitis 32-year-old male with history of anxiety, depression, opioid dependence on methadone, peripheral neuropathy, history of IV drug abuse in remission admitted to Psychiatry with consult placed hospitalist service for evaluation of cellulitis LLE. When first evaluated in july the patient was noted to have wounds on the feet bilaterally with associated cellulitis. Infection was effectively treated with augmentin and doxycycline and he has been followed by the wound rn and nursing staff for dressing changes/wound evaluation. Pt has been resistant to foot care recommendations including warm soaks and has poor hygeine overall per nursing staff. He spends much of the day ambulating the halls in hospital socks or sneakers without laces. On examination today by wound rn, pt was agreeable to foot soaks but was also noted to have significantly increased erythema, warmth, swelling BLE L>>R. Reportedly sock was adhered to wound. Consult placed to hospitalist service for further evaluation and management. The patient is not the best historian secondary to mental status. Pt has been refusing vital signs Review of Systems 2 Review of Systems: Yes Unobtainable due to mental status [facility] Medical History Cellulitis of great toe, left Peripheral neuropathy History of intravenous drug abuse Opiate dependence Social History Household Members: Unknown / Unable to assess Housing: Unknown / Unable to assess Do you presently have visiting nurse or other home services: No Unable to assess alcohol history related to: Refusing to respond Patient Tobacco Use Status: Current everyday Tobacco user Tobacco use type: Cigarette Cigarette Packs Per Day: 1 Cigarettes Per Day: 20.0 Years Smoked: 15 Smoked in Last 30 Days: Yes Patient Interested in Nicotine Replacement: Yes Patient Given Instructions on How to Stop Smoking: Yes Date Education Initiated: 07/10/23 Second Hand Smoke Exposure: No Use of substances other than those prescribed or required for medical reasons: Refusing to respond Last Used Substance Other:: pt is currently on Methadone Currently Displaying Signs/Symptoms of Drug Intoxication Withdrawal: No Any prior treatment program specific to substance use: Yes (per patient assessment) Spiritual Healthcare Practices: unknown [facility]-Ism Healthcare Practices: unknown Cultural Healthcare Practices: unknown Advance Directives: No Advance Directives Information Provided: No Do you have thoughts of harming others: None Do you have a plan to hurt others: No Plan Recently lost weight without trying: No Eating poorly because of decreased appetite: No Nutrition Risks: No Nutritional Risk service: No Sexual orientation: Straight/Heterosexual Meds Allergies Allergy/AdvReac Type Severity Reaction Status Date / Time haloperidol [From Haldol] AdvReac Severe tongue Verified 07/13/23 14:18 swelling Active Medications: Current Medications Acetaminophen (Acetaminophen 325 Mg Tablet) 650 mg PO Q6H PRN PRN Reason: Headache/Pain Mild Scale (1-3) Last Admin: 08/22/23 22:01 Dose: 650 mg Al Hydroxide/Mg Hydroxide (Magnesium Hydrox/Alum Hydrox 30 Ml Oral.Susp) 30 ml PO Q6H PRN PRN Reason: Heartburn/Nausea Clonazepam (Clonazepam 1 Mg Tablet) 1 mg PO BID [facility] Last Admin: 08/25/23 08:51 Dose: 1 mg Clozapine (Clozapine Odt 25 Mg Tab.Rapdis) 25 mg PO BEDTIME ARISTIDES Clozapine (Clozapine 25 Mg Tablet) 12.5 mg PO BEDTIME ARISTIDES Diphenhydramine HCl (Diphenhydramine Hcl 25 Mg Capsule) 25 mg PO Q6H PRN PRN Reason: Itching Gabapentin (Gabapentin 300 Mg Capsule) 600 mg PO TID [facility] Last Admin: 08/25/23 14:24 Dose: 600 mg Hydroxyzine HCl (Hydroxyzine Hcl 25 Mg Tablet) 25 mg PO Q6H PRN PRN Reason: Anxiety Magnesium Hydroxide (Milk Of Magnesia 30 Ml Oral.Susp) 30 ml PO DAILY PRN PRN Reason: Constipation Melatonin (Melatonin 3 Mg Tablet) 6 mg PO BEDTIME PRN PRN Reason: Insomnia Last Admin: 08/22/23 21:47 Dose: 6 mg Melatonin (Melatonin 3 Mg Tablet) 3 mg PO BEDTIME [facility] Last Admin: 08/24/23 22:08 Dose: Not Given Methadone HCl (Methadone Hcl 20 Mg/2 Ml Oral.Conc) 85 mg PO DAILY [facility] Last Admin: 08/25/23 08:50 Dose: 85 mg Multi-Ingred Cream/Lotion/Oil/Oint (Mineral Oil/Petrolatum,White 106 Gm Tube) 1 appl TOPICAL TID PRN; Protocol PRN Reason: dry skin Last Admin: 08/07/23 13:48 Dose: 1 appl Nicotine (Nicotine 21 Mg Patch.Td24) 21 mg TRANSDERMA DAILY [facility]STIDES Last Admin: 08/25/23 08:51 Dose: 21 mg Nicotine Polacrilex (Nicotine Polacrilex 2 Mg Gum) 2 mg BUCCAL Q1H PRN PRN Reason: Nicotine Cravings Last Admin: 08/25/23 14:24 Dose: 2 mg Nicotine Polacrilex (Nicotine Polacrilex 2 Mg Gum) 4 mg BUCCAL Q2H PRN PRN Reason: Nicotine Cravings Last Admin: 08/25/23 17:31 Dose: 4 mg Quetiapine Fumarate (Quetiapine Fumarate 100 Mg Tablet) 100 mg PO BEDTIME PRN PRN Reason: insomnia Last Admin: 08/22/23 21:46 Dose: 100 mg Ziprasidone (Ziprasidone Mesylate 20 Mg Vial) 20 mg IM BID PRN PRN Reason: if refuses PO Clozapine Last Admin: 08/16/23 22:17 Dose: 20 mg Home Medications Medication Instructions Recorded Confirmed Last Taken Type clonazepam 0.5 mg tablet (Klonopin) 0.5 mg PO DAILY 07/11/23 07/11/23 Unknown History gabapentin 400 mg capsule 400 mg PO TID 07/11/23 07/11/23 Unknown History melatonin 5 mg tablet 5 mg PO BEDTIME 07/11/23 07/11/23 Unknown History Physical Exam 2 Vital Signs and Narrative: Vital Signs: Last Vital Signs Temp 97.8 F 08/22/23 06:00 Pulse 115 H 08/23/23 09:15 Resp 18 08/25/23 06:00 BP 121/66 08/23/23 09:15 Pulse Ox 97 08/23/23 09:15 O2 Del Method Room Air 08/23/23 09:15 BMI result Body Mass Index 23.1 Constitutional - Awake and Alert, No apparent distress Extremities - no calf tenderness bilaterally. Significant erythema, warmth, swelling/edema extending foot to knee LLE, covering anterior distal 1/3 of right lower leg. Feet wrapped in fresh bandages, but wounds observed from photographs taken by nursing/wound care Skin - Warm/Dry. Results Labs 08/13/23 09:23 08/13/23 09:23 Assessment and Plan (1) Cellulitis of left leg: Status: Acute (2) Peripheral neuropathy: Status: Acute Plan 32-year-old male with history of anxiety, depression, opioid dependence on methadone, peripheral neuropathy, history of IV drug abuse in remission admitted to Psychiatry with consult placed hospitalist service for evaluation of cellulitis LLE. #Chronic neuropathic wound L great toe with associated cellulitis LLE -extensive cellulitis LLE encompassing lower leg from foot to knee with significant erythema, warmth, swelling/edema -poor overall hygeine and especially foot care given patient noncompliance/refusal -Venous duplex ordered to r/o DVT given symptoms though low suspicion as patient is highly ambulatory -Xray left foot to evaluate for osteomyelitis given chronic wounds with infection -PO doxycycline 100mg q12h (with meal and full glass of water- do not lie down for 1 hour after taking med) and Augmentin 875mg q12h. Stagger abx dosing to prevent n/v -administer zofran prn for n/v -will also initiate omeprazole 20mg daily prior to PO to help with GI upset associated with abx use (particularly doxy) -Encourage foot soaks/cleaning/dressing recs per wound rn -Check CBC, CRP, ESR (will also add lactic acid and blood cultures given pt is a difficult lab stick and often refuses, though suspicion for sepsis is low) -Check VS at least daily -Encourage appropriately fitting footwear and regularly changing of socks -Consider ID consult if not improving Thank you for this consult. Will continue following for results
[2023-08-25] MEDS: Ondansetron ODT 4 MG TAB.RAPDIS TRANSLINGU (19:19)
[2023-08-25] MEDS: Acetaminophen 325 MG TABLET 650 MG PO (19:27)
[2023-08-25] MEDS: cloZAPine ODT 25 MG TAB.RAPDIS PO (21:54)
[2023-08-25] MEDS: cloZAPine 25 MG TABLET 12.5 MG PO (21:54)
[2023-08-25] MEDS: Doxycycline Monohydrate 100 MG CAPSULE PO (21:57)
[2023-08-25] MEDS: Amoxicillin/Potassium Clav 875 MG TABLET PO (21:57)
--- NOTE | 2023-08-25 23:33 | PC.NURSE ---
Patient with pain in his left foot tonight requesting tylenol which is new for him. Days/Weeks of refusing care for the wounds on his feet have resulted in infection. Left foot/ankle/calf red and swollen. Covering Hospitalist up to assess. Patient has a history of refusing care which extends to current. The Hospitalist ordered an x-ray as well as US, antibiotics, and blood work. Patient was agreeable to all but blood work. x-ray, US, antibiotics administered and staff including this RN, lens mounter, and PA explained importance of blood work to patient for guiding care and clinical importance. RN explained the possibilities of what could happen without the proper care including but not limited to sepsis, osteomyelitis, and the need for surgical intervention. He is already reporting pain, looks pale, has physical symptoms including redness and swelling and the US showing swollen lymph nodes. All of this was explained to patient multiple times. Patient requesting staff stop pressuring him. He seems to understand the situation he is in and has been agreeable to interventions in small increments but also has a barrier with regards to needles and blood. Will continue to monitor and be available for discussion and care.
[2023-08-26 06:00] VITALS: RESP 18
[2023-08-26] MEDS: methADONE HCl 20 MG/2 ML ORAL.CONC 85 MG PO (08:24)
[2023-08-26] MEDS: clonazePAM 1 MG TABLET PO ×3 (08:25→21:22)
[2023-08-26] MEDS: Gabapentin 300 MG CAPSULE 600 MG PO ×3 (08:25→21:20)
[2023-08-26] MEDS: Nicotine 21 MG PATCH.TD24 TRANSDERMA (08:25)
[2023-08-26] MEDS: Nicotine Polacrilex 2 MG GUM 4 MG BUCCAL ×5 (08:30→21:29)
--- NOTE | 2023-08-26 12:05 | P.PNPSI_ITS ---
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 have not reduced any despite being on Zyprexa for 2 weeks, and at 30 mg for about a week. Will try to add ziprasidone to see if that can make a difference. 07/31 patient recently start do Geodon 20 mg b.i.d.; lowered Zyprexa to 20 mg; debating whether not to increased Geodon (plan is to cross titrate Zyprexa with Geodon) 08/04/23 Geodon increased over the weekend. Patient a little more relationally interactive; he said he feels like he is doing better but is very vague about symptoms and even told group underwriter he does not really want to explain his symptoms thinking group underwriter will not agree. He says he continues to feel persecuted by them and that it is serious. However he says that he is interacting with others more and that he went to a group. Patient does also dressed in casual clothing, 1st time since admission, saying he got them from the donation box. of note: Patient has been refusing Zyprexa so will discontinue and focus just on ziprasidone. While patient does have some improved affect, he remains internally preoccupied, talking to himself and pacing the halls all day almost without. Except for meals; only slept 2 hours last night and otherwise pacing the hallway. Also patient tried to cheek Geodon and it was observed to have been thrown in the trash. Patient said was accidental and was willing to take a replacement dose however this does seem to speak to his insight and questions the extent of improved presentation. 08/05 Patient remains psychotic, no insight at all, pacing the halls nonstop talking to self making hand gestures sometimes as if he is choking someone. Patient continues to try and cheek is medications however when found out doing so, submits to mouth checks. Geospatial Imagery Intelligence Analyst discussed this with patient who said he just does not want to take the medication; he can not or will not really say why other than to repeat he just does not want to but he says that he will do so from now on. -so far it seems that nursing staff is able to observe patient and eventually get him to take medication; however without consistency it will be unclear if ziprasidone his effective. Discussing with team whether or not to implement ziprasidone IM for time period to ensure court ordered compliance) -will reconsult wound nurse to assess left foot 08/06 Last night, Patient again tried to deceive nursing and pretend that he took medication when he did not. After patient challenged on this he did in fact swallow his medication. This morning he submitted to rigorous mouth checks and nursing believes that he did indeed ingest his medication. Patient remains without any insight, floridly psychotic, nonstop talking to himself and pacing the hallways; disorganized behavior -not sure if patient is the same, worse or better which means he is likely not much different. Again discussed with nursing whether not to start with ziprasidone IM for a few days; will continue to hold off for now but strongly considering this as it is essential to know if this medication can be effective verses needing to again switch medications. 08/07 no change in presentation dry skin vs possible rash on b/l ankle; given benadryl for itchiness; will try lotion and monitor will get EKG and consider increasing Ziprasidone as no appreciable improvment/reduction of symptoms 08/10 says he's better, not feeling persecuted, but behaviors remain the same, internally preoccupied, pacing non-stop, self-dialoguing, isolative...concern is that nothing has really changed other than patient disclosing less qtc wnl. 08/12 today, SW and group underwriter met with patient. ?He?shared?about?some?plans?he?has?once?discharged,?which? 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 ?Patient?still?feels Persecuted?by they and?or?FRED...??He?says?he?does?not?feel?it?is?quite?as?bad?as?when?he?1st?was?ad mitted. However,later on?he?accused?a?nurse?that?she?was?part?of?the?FRED?and?would?not?let?her?examine ?his?foot w ound.??Also?he?made?a?sexually?inappropriate?remark?to?her,?talking?about?a?medi cation?squirting...and said to her I like it when roman in my mouth, like tits and penis... 08/13 No?change?in?presentation;?discussed?with?patient?change?of?med?and?the?need?for ?labs?but?he?refused. A NC?lab?necessary?to?start?clozapine?falls?into?court?order.??Patient?needed?staf f/security?to?hold?him for?blood?draw and pt very upset about it. Regarding?medication?decisions:??Will?switch?patient?to?clozapine P atient?has?had?numerous?hospitalizations?this?past?year,?either?with?little?bene fit?from?medications?or?quickly?discontinuing?them On?discharge?And?again?becoming?psychotic?and?unsafe. Even?at?nearly?max?doses?of?ziprasidone (or zyprex),?patient?has?remained?with?significantly?and?life?impairing?psychosis. Patient's?suicidality?has?lessened?and?he's?future?oriented (though with?completely?unrealistic?goals), However, he remains psychotic, with paranoid?delusions,?internally?preoccupied,no?insight,?disorganized in speech and behavior,?sexual inapropriate,talking?to?himself,?disheveled?and?isolative. Due to parnoia, he's not letting staff address his foot wound which needs to be attended to daily. He?is?taking?medication?only?because?it?is?court?ordered and monitored. Though?slightly?improved,?were?he?to?discharge,?he?still could not?function?on?his?own?in?the?community; he has no insight, has repeatedly tried to avoid taking medications and there?is?no?reason?to?expect?he would?remain adherent. He would quickly?decompensate, become suicidal. ?Discussed?at?length?with?team.??Patient?very?much?does?not?want?blood?draws,?kingsley Hood lozapine?remains?the?most?likely?effective?medication?available?and?patient's?be st?chance?at?gaining?insight?into?his?illness?and Progressing?him?towards?being?able?to?function?in?the?community. -Clozapine least likely to cause dystonic reaction which he had from Haldol, making other 1st generation antipsychotics less optimal -plan to change meds discussed with patient who was unable to appreciate reasoning, his illness and limits in functioning. 08/15/23: Continue current regimen and plans 08/16/2023: Continue current regimen and plans. Zyprexa in reaction to Clozaril refusal changed to Zyprexa Zydis 10 mg b.i.d. p.r.n. 08/17 Patient says he has no longer sedated and that was only because of Zyprexa and as asking for clonazepam to be returned and gabapentin increase back to former dose.. Geospatial Imagery Intelligence Analyst agreed saying it was just held out of concern. Patient took Clozaril today and said he would continue to do so. Otherwise remains with same presentation, paranoid delusions, disorganized behavior 08/18 change clozapine to q.h.s. since patient complains of daytime sedation -refuses to let would nurse or anyone treat feet 08/19 continue current treatment plan; will leave clozapine at current dose for tonight but then continue titration 08/20 allowed blood draw; little more lighthearted and joked with group underwriter 08/21 same presentation. Patient says he isn't really having voices anymore however it is very difficult to tell if patient is just saying what he knows staff is looking to hear. Behaviors remain disorganized, constant pacing, poor insight, will not let anyone address foot wound 08/22 patient is more sedated this morning. It is difficult to tell the cause of it. Is it because he continues to refuse to sleep and instead paces the hills and has been doing so for weeks? Is it because clonazepam was increased? Or is it because clozapine was titrated to quickly for him? Staff felt he was a little more confused this morning though this did seem to resolve. Because of this group underwriter is lowering dose of Clozaril back to 25 mg and will titrate more slowly. Did not get a clonazepam level since patient gets traumatized with blood draws and if level supratherapeutic, this should be resolved by lowering dose. Will get level next time draw ANC. If patient remains too sedated, will again lower clonazepam dose in the morning 08/23 continue tx plan, with clozapine lowered to 25mg for now 08/24 no longer sedated; irritable; limited insight. Denying SI or AH and saying he feels better on the new medication. Still however with disorganized behaviors and refusing to let his feet be examined/treated; discussed refusal as relevant to his state of mind, that if thinking clearly would want tx to avoid infection and its consequences 08/25 Patient remains psychotic and difficult with which to engage. Continues to walk up and down the hills nonstop, talking to himself, making odd hand gestures. When asked about psychiatric/psychotic symptoms he denies them however there is no improvement in his behavior at all which remains disorganized. Intermittently incontinent of urine; although Clozaril can cause nocturnal enuresis, that patient becomes overly tired since he consistently it seems more likely that this incontinence is due to patient becoming excessively tired as he consistently refuses to let himself sleep in order to pace the halls. Will continue to titrate Clozaril. Although he verbally says he is doing better, denying voices or worried about persecution, his behaviors remain disorganized; his insight and judgment remain severely impaired as revealed by his refusal to have wound care, nursing examine or treat his feet even though he has been repeatedly educated on the serious risk of refusing treatment, including the possibility of eventual amputation. Patient clearly enjoys walking and he wants his feet to heal (having told group underwriter so several times, but adding he does not trust proposed tx, thinking they'll make his foot worse...and saying he thinks they are getting better) and if patient were organized in his thinking or free from paranoid delusions,, he would want and except treatment. -Patient has thus far been refusing to let wound nurse or any nurse examine or treat his feet. Today however he allowed nursing, wound nurse and group underwriter to assess which revealed concerning cellulitis of left lower extremity. He did allow wound nurse to bathe his feet but would not allow any additional treatment or bandaging with appropriate material. -Hospitalist consult placed to further assess and start antibiotics. 08/26 Patient refused antibiotics today. However, after infectious disease physician, Dr. Whalen came to examine patient, he did agree to getting an MRI, taking antibiotics and getting lab work done, including expanded lab work to assess infection... He asked for additional clonazepam for anxiety for these interventions to which group underwriter agreed. Otherwise same presentation Hospitalist JERRELL note from 08/25 Venous duplex negative for DVT, but shows significantly enlarged abnormal inguinal nodes, likely infectious/inflammatory. Unfortunately, the patient is refusing labs and vital signs to help assess the severity of the extensive cellulitis of nearly 40-50% LLE. XR does appear negative for osteomyelitis, thought would still recommend assessing ESR/CRP. Will consult ID for further input. -briefly talked to radiologist who said from Xray that 2nd metatarsal tip has a cyber fracture osvaldo to avascular necrosis Regarding blood work in context of being on Clozapine with LLE Cellulitis : Clozaril, as with other Antipsychotic medications, ?can affect liver, kidney, hyperglycemia, electrolytes which warrants monitoring.?However, Clozaril can also cause agranulocytosis, leukopenia and neutropenia. ?Currently patient has a severe cellulitis and has been refusing vitals and antibiotics.? Patient is on clozapine to treat severe paranoid delusions which directly impair his ability to understand and make judgments about his physical health. ?Stopping the titration of clozapine risks worsening his paranoid delusions.? Conversely, given the potential risks of clozapine it is imperative to know the extent of this infection and whether it is becoming systemic so as to know how to manage clozapine dosing and if it needs to be temporarily discontinued.?For this reason, will expand lab work ordered to include measuring parameters of infection. ?Geospatial Imagery Intelligence Analyst discussed this with Dr. Marie, medical assisting instructor of the psychiatric unit who fully agrees with this plan. PLAN: Section 8/8b involuntary commitment and substituted judgment ordered Q 15 minute checks MRI (without contrast-patient refuses contrast) to better rule out osteomyelitis Will DC doxycycline and instead start Bactrim to reduce nausea Continue Augmentin Lab work: CBC, CMP, lactic acid, CRP, sed rate Continue Clozapine OdT 25 mg qhs.; (* COURT ORDERED; cannot refuse.. Give IM ziprasidone if refuses p.o.) -was transiently a little confused during previous titration; will retitrate more slowly +Clozapine 12.5mg qhs (as part of titration) Continue Clonazepam 1mg to bid; continue Gabapentin 600 mg t.i.d Methadone 85 mg daily ANC 3.3 (08/20) ANC 6800 Lft's mild-moderately elevated, likely due to Ziprasidone Medication options per court ordered substituted judgment: Clozapine Ziprasidone not effective even at therapeutic doses Thorazine Fluphenazine Perphenazine Zyprexa Past med trials: Zyprexa: not effective Seroquel sedation Haldol: dystonic reaction/tongue swelling, Risperdal: emotional numbing. Right Great Toe: Assessment as of 08/06/23 1. Left Great Toe (Dorsal and Posterior Wounds) - Cleanse with NS, pat dry. Apply Triad to periwound - cover wound beds with Alginate AG (Durafiber AG), (Lightly pack posterior wound bed) cover with foam dressing, consider dry gauze dressing to posterior wound as foam may be donating some moisture to periwound. Change Daily. Be sure to remove alginate packing to posterior wound - may need to be moistened prior to removal. If Alginate is refused may apply Triad to wound bed and periwound and cover with foam and or dry dressing. Triad will stick to wound bed - do not scrub off at next dressing change this will cause further tissue damage, pat and dab to cleanse, prior to next application. -no osteomyelitis per Xray 2.Right Great toe Callus unchanged - no topical interventions needed at this time. Pt was reporting he belives ants and or maggots were living with in the callus and was attempting to pick at callus. Assured pt there were not s/s of maggot or ants in trapped under the callus and encouraged him to put his sock on and not attempt to remove the callus - he replaced his sock. Continue to recommend Podiatry follow up outpatient for callus removal. Patient educated on: diagnosis, medication risk/benefits, therapeutic strategies and medical condition Informed Consent: understands, does not understand and further education needed Reason for continued inpatient stay Substantial Risk for: inability to function Time Spent With Patient Time: Total time managing care of this patient today ____ minutes.
[2023-08-26] MEDS: Amoxicillin/Potassium Clav 875 MG TABLET PO ×2 (13:15→21:21)
[2023-08-26] MEDS: Doxycycline Monohydrate 100 MG CAPSULE PO (13:15)
[2023-08-26] MEDS: Acetaminophen 325 MG TABLET 650 MG PO ×2 (13:46→22:13)
[2023-08-26] MEDS: Nicotine Polacrilex 2 MG GUM BUCCAL (14:27)
[2023-08-26] MEDS: clonazePAM 0.5 MG TABLET PO (16:26)
[2023-08-26 17:57] LABS: MANUAL DIFF FLAG NO
[2023-08-26 17:59] LABS: Basophils Percent Auto 0.3 % (0-2); Eosinophils Absolute Auto 0.3 X10*3/uL (0.0-0.4); Eosinophils Percent Auto 2.6 % (0-4); Hematocrit 34.2 % (42.0-52.0); Hemoglobin 12.2 g/dl (14.0-18.0); Imm Gran Abs Auto 0.04 X10*3/uL (0.00-0.03); Imm Gran Pct Auto 0.4 % (0.0-0.4); Lymphocytes Absolute Auto 1.7 X10*3/uL (1.2-4.9); Lymphocytes Percent Auto 16.5 % (20-40); Mean Corpuscular HGB Conc 35.7 g/dl (31.0-36.0); Mean Corpuscular Hemoglobin 32.2 pg (27.0-33.0); Mean Corpuscular Volume 90.2 fL (80.0-98.0); Mean Platelet Volume 10.2 fL (9.4-12.4); Monocytes Absolute Auto 0.7 X10*3/uL (0.1-1.2); Neutrophils Absolute Auto 7.5 x10*3/uL (2.0-8.3); Neutrophils Percent Auto 73.2 % (45-73); Platelet Count 179 X10*3/uL (160-400); Red Blood Count 3.79 X10*6/uL (4.60-5.80); Red Cell Distribution Width 13.2 % (11.0-16.0); White Blood Count 10.2 X10*3/uL (4.8-10.8)
[2023-08-26 18:16] LABS: Alanine Aminotransferase 135 U/L (0-40); Albumin Level 3.6 g/dL (3.5-5.0); Alkaline Phosphatase 92 U/L (39-117); Anion Gap 12 (12-20); Aspartate Amino Transferase 117 U/L (5-37); Bilirubin Total 0.8 mg/dL (0.0-1.0); Blood Urea Nitrogen 13 mg/dL (9-16); C Reactive Protein 6.68 mg/dL (< or = 0.50); Carbon Dioxide 26 mmol/L (22-29); Chloride 101 mmol/L (96-108); Creatinine Clr Calc Pharmacy 177.6; Estimated Glomerular Filt Rate > 60; Glucose Random 124 mg/dL (60-115); Lactate Dehydrogenase 305 U/L (118-273); Potassium 4.2 mmol/L (3.3-5.1); Sodium 135 mmol/L (135-145); Total Protein 7.7 g/dL (6.5-8.0)
[2023-08-26 18:59] LABS: Erythrocyte Sedimentation Rate 58 MM/HR (0-15)
[2023-08-26] MEDS: Sulfamethox/Trimeth 800/160 TABLET 1 TAB PO (21:21)
[2023-08-26] MEDS: cloZAPine ODT 25 MG TAB.RAPDIS PO (21:21)
[2023-08-26] MEDS: cloZAPine 25 MG TABLET 12.5 MG PO (21:22)
[2023-08-27 07:00] VITALS: BMI 23.5
[2023-08-27] MEDS: Gabapentin 300 MG CAPSULE 600 MG PO ×3 (08:20→20:00)
[2023-08-27] MEDS: clonazePAM 1 MG TABLET PO ×2 (08:20→20:00)
[2023-08-27] MEDS: methADONE HCl 20 MG/2 ML ORAL.CONC 85 MG PO (08:20)
[2023-08-27] MEDS: Nicotine Polacrilex 2 MG GUM 4 MG BUCCAL ×5 (08:21→20:04)
--- NOTE | 2023-08-27 09:27 | HO.PSYCHPN ---
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 Patient remains without any insight, floridly psychotic, nonstop talking to himself and pacing the hallways; disorganized behavior -not sure if patient is the same, worse or better which means he is likely not much different. Again discussed with nursing whether not to start with ziprasidone IM for a few days; will continue to hold off for now but strongly considering this as it is essential to know if this medication can be effective verses needing to again switch medications. 08/07 no change in presentation dry skin vs possible rash on b/l ankle; given benadryl for itchiness; will try lotion and monitor will get EKG and consider increasing Ziprasidone as no appreciable improvment/reduction of symptoms 08/10 says he's better, not feeling persecuted, but behaviors remain the same, internally preoccupied, pacing non-stop, self-dialoguing, isolative...concern is that nothing has really changed other than patient disclosing less qtc wnl. 08/12 today, SW and race and sports book writer met with patient. ?He?shared?about?some?plans?he?has?once?discharged,?which? 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 ?Patient?still?feels Persecuted?by they and?or?FRED...??He?says?he?does?not?feel?it?is?quite?as?bad?as?when?he?1st?was?admitted. However,later on?he?accused?a?nurse?that?she?was?part?of?the?FRED?and?would?not?let?her?examine?his?foot wound.??Also?he?made?a?sexually?inappropriate?remark?to?her,?talking?about?a?medication?squirting...and said to her I like it when roman in my mouth, like tits and penis... 08/13 No?change?in?presentation;?discussed?with?patient?change?of?med?and?the?need?for?labs?but?he?refused. ANC?lab?necessary?to?start?clozapine?falls?into?court?order.??Patient?needed?staff/security?to?hold?him for?blood?draw and pt very upset about it. Regarding?medication?decisions:??Will?switch?patient?to?clozapine Patient?has?had?numerous?hospitalizations?this?past?year,?either?with?little?benefit?from?medications?or?quickly?discontinuing?them On?discharge?And?again?becoming?psychotic?and?unsafe. Even?at?nearly?max?doses?of?ziprasidone (or zyprex),?patient?has?remained?with?significantly?and?life?impairing?psychosis. Patient's?suicidality?has?lessened?and?he's?future?oriented (though with?completely?unrealistic?goals), However, he remains psychotic, with paranoid?delusions,?internally?preoccupied,no?insight,?disorganized in speech and behavior,?sexual inapropriate,talking?to?himself,?disheveled?and?isolative. Due to parnoia, he's not letting staff address his foot wound which needs to be attended to daily. He?is?taking?medication?only?because?it?is?court?ordered and monitored. Though?slightly?improved,?were?he?to?discharge,?he?still could not?function?on?his?own?in?the?community; he has no insight, has repeatedly tried to avoid taking medications and there?is?no?reason?to?expect?he would?remain adherent. He would quickly?decompensate, become suicidal. ?Discussed?at?length?with?team.??Patient?very?much?does?not?want?blood?draws,?however Clozapine?remains?the?most?likely?effective?medication?available?and?patient's?best?chance?at?gaining?insight?into?his?illness?and Progressing?him?towards?being?able?to?function?in?the?community. -Clozapine least likely to cause dystonic reaction which he had from Haldol, making other 1st generation antipsychotics less optimal -plan to change meds discussed with patient who was unable to appreciate reasoning, his illness and limits in functioning. 08/15/23: Continue current regimen and plans 08/16/2023: Continue current regimen and plans. Zyprexa in reaction to Clozaril refusal changed to Zyprexa Zydis 10 mg b.i.d. p.r.n. 08/17 Patient says he has no longer sedated and that was only because of Zyprexa and as asking for clonazepam to be returned and gabapentin increase back to former dose.. Domain Architect agreed saying it was just held out of concern. Patient took Clozaril today and said he would continue to do so. Otherwise remains with same presentation, paranoid delusions, disorganized behavior 08/18 change clozapine to q.h.s. since patient complains of daytime sedation -refuses to let would nurse or anyone treat feet 08/19 continue current treatment plan; will leave clozapine at current dose for tonight but then continue titration 08/20 allowed blood draw; little more lighthearted and joked with race and sports book writer 08/21 same presentation. Patient says he isn't really having voices anymore however it is very difficult to tell if patient is just saying what he knows staff is looking to hear. Behaviors remain disorganized, constant pacing, poor insight, will not let anyone address foot wound 08/22 patient is more sedated this morning. It is difficult to tell the cause of it. Is it because he continues to refuse to sleep and instead paces the hills and has been doing so for weeks? Is it because clonazepam was increased? Or is it because clozapine was titrated to quickly for him? Staff felt he was a little more confused this morning though this did seem to resolve. Because of this race and sports book writer is lowering dose of Clozaril back to 25 mg and will titrate more slowly. Did not get a clonazepam level since patient gets traumatized with blood draws and if level supratherapeutic, this should be resolved by lowering dose. Will get level next time draw ANC. If patient remains too sedated, will again lower clonazepam dose in the morning 08/23 continue tx plan, with clozapine lowered to 25mg for now 08/24 no longer sedated; irritable; limited insight. Denying SI or AH and saying he feels better on the new medication. Still however with disorganized behaviors and refusing to let his feet be examined/treated; discussed refusal as relevant to his state of mind, that if thinking clearly would want tx to avoid infection and its consequences 08/25 Patient remains psychotic and difficult with which to engage. Continues to walk up and down the hills nonstop, talking to himself, making odd hand gestures. When asked about psychiatric/psychotic symptoms he denies them however there is no improvement in his behavior at all which remains disorganized. Intermittently incontinent of urine; although Clozaril can cause nocturnal enuresis, that patient becomes overly tired since he consistently it seems more likely that this incontinence is due to patient becoming excessively tired as he consistently refuses to let himself sleep in order to pace the halls. Will continue to titrate Clozaril. Although he verbally says he is doing better, denying voices or worried about persecution, his behaviors remain disorganized; his insight and judgment remain severely impaired as revealed by his refusal to have wound care, nursing examine or treat his feet even though he has been repeatedly educated on the serious risk of refusing treatment, including the possibility of eventual amputation. Patient clearly enjoys walking and he wants his feet to heal (having told race and sports book writer so several times, but adding he does not trust proposed tx, thinking they'll make his foot worse...and saying he thinks they are getting better) and if patient were organized in his thinking or free from paranoid delusions,, he would want and except treatment. -Patient has thus far been refusing to let wound nurse or any nurse examine or treat his feet. Today however he allowed nursing, wound nurse and race and sports book writer to assess which revealed concerning cellulitis of left lower extremity. He did allow wound nurse to bathe his feet but would not allow any additional treatment or bandaging with appropriate material. -Hospitalist consult placed to further assess and start antibiotics. 08/26 Patient refused antibiotics today. However, after infectious disease physician, Dr. Whalen came to examine patient, he did agree to getting an MRI, taking antibiotics and getting lab work done, including expanded lab work to assess infection... He asked for additional clonazepam for anxiety for these interventions to which race and sports book writer agreed. Otherwise same presentation Hospitalist PA note from 08/25 Venous duplex negative for DVT, but shows significantly enlarged abnormal inguinal nodes, likely infectious/inflammatory. Unfortunately, the patient is refusing labs and vital signs to help assess the severity of the extensive cellulitis of nearly 40-50% LLE. XR does appear negative for osteomyelitis, thought would still recommend assessing ESR/CRP. Will consult ID for further input. -briefly talked to radiologist who said from Xray that 2nd metatarsal tip has a cyber fracture osvaldo to avascular necrosis Regarding blood work in context of being on Clozapine with LLE Cellulitis : Clozaril, as with other Antipsychotic medications, ?can affect liver, kidney, hyperglycemia, electrolytes which warrants monitoring.?However, Clozaril can also cause agranulocytosis, leukopenia and neutropenia. ?Currently patient has a severe cellulitis and has been refusing vitals and antibiotics.? Patient is on clozapine to treat severe paranoid delusions which directly impair his ability to understand and make judgments about his physical health. ?Stopping the titration of clozapine risks worsening his paranoid delusions.? Conversely, given the potential risks of clozapine it is imperative to know the extent of this infection and whether it is becoming systemic so as to know how to manage clozapine dosing and if it needs to be temporarily discontinued.?For this reason, will expand lab work ordered to include measuring parameters of infection. ?Domain Architect discussed this with Dr. Marie, medical records secretary of the psychiatric unit who fully agrees with this plan. MRI IMPRESSION 08/26: 1. Findings suspicious for osteomyelitis of the 1st distal phalanx, most prominent at the tuft. 2. Probable shallow soft tissue ulcers at the dorsal aspect of the great toe and plantar/medial aspect of the distal great toe with underlying cellulitis. No abscess. 3. Mild marrow edema at the proximal aspect of the 2nd and 5th metatarsals is likely degenerative or stress related. 08/27 remains psychotic, disorganized -patient not septic, WBC, ANC WNL; can continue Clozaril titration However patient did take antibiotics today without too much problem. Domain Architect discussed MRI results with patient and likelihood of osteomyelitis; he does not want IV antibiotics but agrees to take extended p.o. antibiotics. Domain Architect discussed case, MRI, labs with Dr. Whalen who at this time feels that while IV antibiotics are preferable and have increased chance of treating osteomyelitis, there is no guarantee that IV antibiotics would be curative; at this point she recommends continuing current p.o. antibiotics and extending Bactrim trial to 1 month PLAN: Section 8/8b involuntary commitment and substituted judgment ordered Q 15 minute checks Left toe osteomyelitis/left lower limb cellulitis: Continue Bactrim 500 mg b.i.d. for 30 days Continue Augmentin for 6 days total ID following Schizophrenia: INCREASING TO Clozapine OdT 50 mg qhs.; (* COURT ORDERED; cannot refuse.. Give IM ziprasidone if refuses p.o.) -was transiently a little confused during previous titration; will retitrate more slowly Continue Clonazepam 1mg to bid; continue Gabapentin 600 mg t.i.d Methadone 85 mg daily ANC 3.3 (08/20) ANC 6800 Lft's mild-moderately elevated, likely due to Ziprasidone Medication options per court ordered substituted judgment: Clozapine Ziprasidone not effective even at therapeutic doses Thorazine Fluphenazine Perphenazine Zyprexa Past med trials: Zyprexa: not effective Seroquel sedation Haldol: dystonic reaction/tongue swelling, Risperdal: emotional numbing. Patient educated on: diagnosis, medication risk/benefits and medical condition Informed Consent: understands, does not understand and further education needed Reason for continued inpatient stay Substantial Risk for: inability to function Time Spent With Patient Time: Total time managing care of this patient today ____ minutes.
[2023-08-27] MEDS: Amoxicillin/Potassium Clav 875 MG TABLET PO ×2 (10:21→20:00)
[2023-08-27] MEDS: Sulfamethox/Trimeth 800/160 TABLET 1 TAB PO ×2 (10:21→20:00)
[2023-08-27] MEDS: Nicotine Polacrilex 2 MG GUM BUCCAL (11:40)
[2023-08-27] MEDS: clonazePAM 0.5 MG TABLET PO (14:20)
[2023-08-27 18:00] VITALS: RESP 18
[2023-08-27] MEDS: cloZAPine ODT 25 MG TAB.RAPDIS 50 MG PO (20:01)
--- NOTE | 2023-08-27 23:41 | P.CNID_ITS ---
History of Present Illness Data of Consult Service Date: 08/27/23 Primary Care Provider: Unknown Physician HPI Reason for consult: left foot infection PMFSH Past Medical History Medical History Cellulitis of great toe, left Peripheral neuropathy History of intravenous drug abuse Opiate dependence Social History Social History Household Members: Unknown / Unable to assess Housing: Unknown / Unable to assess Do you presently have visiting nurse or other home services: No Unable to assess alcohol history related to: Refusing to respond Patient Tobacco Use Status: Current everyday Tobacco user Tobacco use type: Cigarette Cigarette Packs Per Day: 1 Cigarettes Per Day: 20.0 Years Smoked: 15 Smoked in Last 30 Days: Yes Patient Interested in Nicotine Replacement: Yes Patient Given Instructions on How to Stop Smoking: Yes Date Education Initiated: 07/10/23 Second Hand Smoke Exposure: No Use of substances other than those prescribed or required for medical reasons: Refusing to respond Last Used Substance Other:: pt is currently on Methadone Currently Displaying Signs/Symptoms of Drug Intoxication Withdrawal: No Any prior treatment program specific to substance use: Yes (per patient assessment) Spiritual Healthcare Practices: unknown Yarsanism Healthcare Practices: unknown Cultural Healthcare Practices: unknown Advance Directives: No Advance Directives Information Provided: No Do you have thoughts of harming others: None Do you have a plan to hurt others: No Plan Recently lost weight without trying: No Eating poorly because of decreased appetite: No Nutrition Risks: No Nutritional Risk service: No Sexual orientation: Straight/Heterosexual Meds Allergies Allergy/AdvReac Type Severity Reaction Status Date / Time haloperidol [From Haldol] AdvReac Severe tongue Verified 07/13/23 14:18 swelling Active Medications: Current Medications Acetaminophen (Acetaminophen 325 Mg Tablet) 650 mg PO Q6H PRN PRN Reason: Headache/Pain Mild Scale (1-3) Last Admin: 08/26/23 22:13 Dose: 650 mg Al Hydroxide/Mg Hydroxide (Magnesium Hydrox/Alum Hydrox 30 Ml Oral.Susp) 30 ml PO Q6H PRN PRN Reason: Heartburn/Nausea Amoxicillin/Clavulanate Potassium (Amoxicillin/Potassium Clav 875 Mg Tablet) 875 mg PO BID@0900,2100 [facility] Stop: 09/01/23 09:01 Last Admin: 08/27/23 20:00 Dose: 875 mg Clonazepam (Clonazepam 1 Mg Tablet) 1 mg PO BID [facility] Last Admin: 08/27/23 20:00 Dose: 1 mg Clonazepam (Clonazepam 0.5 Mg Tablet) 0.5 mg PO DAILY PRN PRN Reason: breakthough anxiety Last Admin: 08/27/23 14:20 Dose: 0.5 mg Clozapine (Clozapine Odt 25 Mg Tab.Rapdis) 50 mg PO BEDTIME [facility] Last Admin: 08/27/23 20:01 Dose: 50 mg Diphenhydramine HCl (Diphenhydramine Hcl 25 Mg Capsule) 25 mg PO Q6H PRN PRN Reason: Itching Gabapentin (Gabapentin 300 Mg Capsule) 600 mg PO TID [facility] Last Admin: 08/27/23 20:00 Dose: 600 mg Hydroxyzine HCl (Hydroxyzine Hcl 25 Mg Tablet) 25 mg PO Q6H PRN PRN Reason: Anxiety Magnesium Hydroxide (Milk Of Magnesia 30 Ml Oral.Susp) 30 ml PO DAILY PRN PRN Reason: Constipation Melatonin (Melatonin 3 Mg Tablet) 6 mg PO BEDTIME PRN PRN Reason: Insomnia Last Admin: 08/22/23 21:47 Dose: 6 mg Melatonin (Melatonin 3 Mg Tablet) 3 mg PO BEDTIME [facility] Last Admin: 08/27/23 20:02 Dose: Not Given Methadone HCl (Methadone Hcl 20 Mg/2 Ml Oral.Conc) 85 mg PO DAILY [facility] Last Admin: 08/27/23 08:20 Dose: 85 mg Multi-Ingred Cream/Lotion/Oil/Oint (Mineral Oil/Petrolatum,White 106 Gm Tube) 1 appl TOPICAL TID PRN; Protocol PRN Reason: dry skin Last Admin: 08/07/23 13:48 Dose: 1 appl Nicotine Polacrilex (Nicotine Polacrilex 2 Mg Gum) 4 mg BUCCAL Q2H PRN PRN Reason: Nicotine Cravings Last Admin: 08/27/23 20:04 Dose: 4 mg Nicotine Polacrilex (Nicotine Polacrilex 2 Mg Gum) 2 mg BUCCAL Q1H PRN PRN Reason: for Breakthrough Teo Cravings Last Admin: 08/27/23 11:40 Dose: 2 mg Omeprazole (Omeprazole 20 Mg Capsule.Dr) 20 mg PO DAILY@0630 [facility] Stop: 09/01/23 06:31 Last Admin: 08/27/23 06:23 Dose: Not Given Ondansetron HCl (Ondansetron Odt 4 Mg Tab.Rapdis) 4 mg TRANSLINGU Q8H PRN PRN Reason: Nausea and Vomiting Last Admin: 08/25/23 19:19 Dose: 4 mg Quetiapine Fumarate (Quetiapine Fumarate 100 Mg Tablet) 100 mg PO BEDTIME PRN PRN Reason: severe insomnia Trimethoprim/Sulfamethoxazole (Sulfamethox/Trimeth 800/160 Tablet) 1 tab PO BID [facility] Last Admin: 08/27/23 20:00 Dose: 1 tab Ziprasidone (Ziprasidone Mesylate 20 Mg Vial) 20 mg IM BID PRN PRN Reason: if refuses PO Clozapine Last Admin: 08/16/23 22:17 Dose: 20 mg Home Medications Medication Instructions Recorded Confirmed Last Taken Type clonazepam 0.5 mg tablet (Klonopin) 0.5 mg PO DAILY 07/11/23 07/11/23 Unknown History gabapentin 400 mg capsule 400 mg PO TID 07/11/23 07/11/23 Unknown History melatonin 5 mg tablet 5 mg PO BEDTIME 07/11/23 07/11/23 Unknown History Physical Exam 2 Vital Signs: Vital Signs: Last Vital Signs Temp 97.8 F 08/22/23 06:00 Pulse 115 H 08/23/23 09:15 Resp 18 08/27/23 18:00 BP 121/66 08/23/23 09:15 Pulse Ox 97 08/23/23 09:15 O2 Del Method Room Air 08/23/23 09:15 BMI result Body Mass Index 23.5 Results Labs 08/26/23 17:40 08/26/23 17:40 Microbiology Microbiology Results: Microbiology 08/25/23 17:55 Blood - Venous Blood Culture - Final 08/25/23 17:55 Blood - Venous Blood Culture - Final Assessment and Plan (1) Foot osteomyelitis, left: Status: Acute Cellulitis with OM Continue with antibiotics,possible Ertapenem for 42 days
--- NOTE | 2023-08-28 00:31 | P.CNID_ITS ---
History of Present Illness Data of Consult Service Date: 08/27/23 Requesting physician: Geronimo Dey Primary Care Provider: Unknown Physician HPI Reason for consult: left great toe om He has redness toe for last several months He has OM great toe left on MRI Review of Systems 2 Review of Systems: Yes all other systems are reviewed and are negative [facility] Past Medical History Medical History Routine medical exam Cellulitis of great toe, left Peripheral neuropathy History of intravenous drug abuse Opiate dependence Social History Social History Household Members: Family Household Members Other:: MOM Housing: House Do you presently have visiting nurse or other home services: No Unable to assess alcohol history related to: Refusing to respond Patient Tobacco Use Status: Current everyday Tobacco user Tobacco use type: Cigarette Cigarette Packs Per Day: 1 Cigarettes Per Day: 20.0 Years Smoked: 19 e-Cigarette/Vaping Use: Never Used Second Hand Smoke Exposure: No service: No Sexual orientation: Straight/Heterosexual Meds Allergies Allergy/AdvReac Type Severity Reaction Status Date / Time haloperidol [From Haldol] AdvReac Severe tongue Verified 07/13/23 14:18 swelling Active Medications: Current Medications Acetaminophen (Acetaminophen 325 Mg Tablet) 650 mg PO Q6H PRN PRN Reason: Headache/Pain Mild Scale (1-3) Last Admin: 08/26/23 22:13 Dose: 650 mg Al Hydroxide/Mg Hydroxide (Magnesium Hydrox/Alum Hydrox 30 Ml Oral.Susp) 30 ml PO Q6H PRN PRN Reason: Heartburn/Nausea Amoxicillin/Clavulanate Potassium (Amoxicillin/Potassium Clav 875 Mg Tablet) 875 mg PO BID@0900,2100 [facility] Stop: 09/01/23 09:01 Last Admin: 08/27/23 20:00 Dose: 875 mg Clonazepam (Clonazepam 1 Mg Tablet) 1 mg PO BID [facility] Last Admin: 08/27/23 20:00 Dose: 1 mg Clonazepam (Clonazepam 0.5 Mg Tablet) 0.5 mg PO DAILY PRN PRN Reason: breakthough anxiety Last Admin: 08/27/23 14:20 Dose: 0.5 mg Clozapine (Clozapine Odt 25 Mg Tab.Rapdis) 50 mg PO BEDTIME [facility] Last Admin: 08/27/23 20:01 Dose: 50 mg Diphenhydramine HCl (Diphenhydramine Hcl 25 Mg Capsule) 25 mg PO Q6H PRN PRN Reason: Itching Gabapentin (Gabapentin 300 Mg Capsule) 600 mg PO TID [facility] Last Admin: 08/27/23 20:00 Dose: 600 mg Hydroxyzine HCl (Hydroxyzine Hcl 25 Mg Tablet) 25 mg PO Q6H PRN PRN Reason: Anxiety Magnesium Hydroxide (Milk Of Magnesia 30 Ml Oral.Susp) 30 ml PO DAILY PRN PRN Reason: Constipation Melatonin (Melatonin 3 Mg Tablet) 6 mg PO BEDTIME PRN PRN Reason: Insomnia Last Admin: 08/22/23 21:47 Dose: 6 mg Melatonin (Melatonin 3 Mg Tablet) 3 mg PO BEDTIME [facility] Last Admin: 08/27/23 20:02 Dose: Not Given Methadone HCl (Methadone Hcl 20 Mg/2 Ml Oral.Conc) 85 mg PO DAILY [facility] Last Admin: 08/27/23 08:20 Dose: 85 mg Multi-Ingred Cream/Lotion/Oil/Oint (Mineral Oil/Petrolatum,White 106 Gm Tube) 1 appl TOPICAL TID PRN; Protocol PRN Reason: dry skin Last Admin: 08/07/23 13:48 Dose: 1 appl Nicotine Polacrilex (Nicotine Polacrilex 2 Mg Gum) 4 mg BUCCAL Q2H PRN PRN Reason: Nicotine Cravings Last Admin: 08/27/23 20:04 Dose: 4 mg Nicotine Polacrilex (Nicotine Polacrilex 2 Mg Gum) 2 mg BUCCAL Q1H PRN PRN Reason: for Breakthrough Teo Cravings Last Admin: 08/27/23 11:40 Dose: 2 mg Omeprazole (Omeprazole 20 Mg Capsule.Dr) 20 mg PO DAILY@0630 [facility] Stop: 09/01/23 06:31 Last Admin: 08/27/23 06:23 Dose: Not Given Ondansetron HCl (Ondansetron Odt 4 Mg Tab.Rapdis) 4 mg TRANSLINGU Q8H PRN PRN Reason: Nausea and Vomiting Last Admin: 08/25/23 19:19 Dose: 4 mg Quetiapine Fumarate (Quetiapine Fumarate 100 Mg Tablet) 100 mg PO BEDTIME PRN PRN Reason: severe insomnia Trimethoprim/Sulfamethoxazole (Sulfamethox/Trimeth 800/160 Tablet) 1 tab PO BID [facility] Last Admin: 08/27/23 20:00 Dose: 1 tab Ziprasidone (Ziprasidone Mesylate 20 Mg Vial) 20 mg IM BID PRN PRN Reason: if refuses PO Clozapine Last Admin: 08/16/23 22:17 Dose: 20 mg Physical Exam 2 Vital Signs: Vital Signs: Last Vital Signs Temp 97.8 F 08/22/23 06:00 Pulse 115 H 08/23/23 09:15 Resp 18 08/27/23 18:00 BP 121/66 08/23/23 09:15 Pulse Ox 97 08/23/23 09:15 O2 Del Method Room Air 08/23/23 09:15 BMI result Body Mass Index 23.5 Extrem: Other: left great toe OM Results Labs 08/26/23 17:40 08/26/23 17:40 Microbiology Microbiology Results: Microbiology 08/25/23 17:55 Blood - Venous Blood Culture - Final 08/25/23 17:55 Blood - Venous Blood Culture - Final Assessment and Plan (1) Foot osteomyelitis, left: Status: Inactive Options are removal affected bone toe (patient doesnt want this) iV antibiotic suppressiv ( 6 weeks ,70% no cure) Po suppression ( may help and patient will accept this (Po Augmentin for two weeks and po Bactrim DS bid for 4 weeks and then maybe one Bactrim DS every ,, Thursday indefinitely
[2023-08-28] MEDS: Nicotine Polacrilex 2 MG GUM 4 MG BUCCAL ×5 (05:11→21:19)
[2023-08-28] MEDS: Gabapentin 300 MG CAPSULE 600 MG PO ×3 (07:53→20:20)
[2023-08-28] MEDS: clonazePAM 1 MG TABLET PO ×2 (07:54→20:21)
[2023-08-28] MEDS: methADONE HCl 20 MG/2 ML ORAL.CONC 85 MG PO (07:54)
[2023-08-28 08:05] VITALS: RESP 18
[2023-08-28] MEDS: Sulfamethox/Trimeth 800/160 TABLET 1 TAB PO ×2 (10:18→20:18)
[2023-08-28] MEDS: Amoxicillin/Potassium Clav 875 MG TABLET PO ×2 (10:18→20:21)
--- NOTE | 2023-08-28 10:23 | HO.PSYCHPN ---
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 just a doctor; patient then added that he thinks maybe the hospital is pain some people to not help him... But he did not elaborate on this topic further. He remains pacing the hills back and forth talking to himself, otherwise isolating. He is sleeping at night. He asked if clonazepam could be increased. Chief Dispatcher discussed this and medication history with patient including that his mother said his sister took Zyprexa; he was encouraged by this and said that he would be willing to also take Zyprexa if it was only prescribed at nighttime, to which literary writer agreed. He was thankful and said that he feels that staff is really caring and that he is feeling safe here and thus willing to try medication. He did not want to do clozapine because of the blood draws and said he preferred Zyprexa over Risperdal (Past outpatient [facility] in the community reported history of being on Invega long-acting) -although patient agreed to take Zyprexa, he remains ambivalent overall and will continue with petition court -re-consulted wound care who again assessed patient today; discussed case with literary writer and report that wounds look great. -patient reported that for the past 2 days he has vomited up antibiotics in the morning after taking them; agrees to add Zofran to regimen to help 07/17 Patient Remains floridly psychotic, talking to himself while pacing the hills day long; says he is overwhelmed with the tortuous persecution he is in during (due to paranoid delusions). Says that he is being. Refuse to take antibiotics this morning, saying it makes him nauseous despite having started on Zofran as well. Says anxiety is a little better because of the increased clonazepam which he is grateful for; he did take Zyprexa last night. -will increase Zyprexa to 10 mg q.h.s. 07/18 No change in presentation and remains floridly psychotic with SI. Patient did not take Zyprexa last night. He said that known offered to him and that he totally forgot he was on it. Nursing reviewed orders and the order put in that he refused it was within minutes of him receiving and accepting clonazepam. Anyway patient said he would take it today. He only slept about 2 hours last night. Patient refused antibiotics for 2 days in a row saying it made him nauseous and vomited; this only happened in the morning and not in the evening but he refused to evening antibiotics as well. It is unclear if this is due to any paranoia or just nausea. 07/19 no change in presentation other than more hyperactive today; patient somewhat flirtatious with select nurses; not sure if this is a burgeoning hypomania or not. Will continue to monitor. -did take Zyprexa last night 07/20 patient says he has getting a little bit of relief but still AH, paranoid delusions. He thinks the medication might be limited their ability to intrude upon him 07/21 some mild improvement noticed. Patient is still hearing voices but says they are not quite as omnipresent. He still feels anxious about being persecuted and and the horrible things they do to him however says right now he is not thinking about suicide. Patient does seem a little drowsy which he thinks it is because the Zyprexa, however he is also taking gabapentin and clonazepam t.i.d. (and clonazepam used to be just daily). Patient remains without any insight 07/22: Guarded. Pt reports feeling okay today; pt stated, the Zyprexa is making me drowsy. I don't think I want to take it anymore. I don't have much else to say . Patient reports suicidal ideation comes and goes . He reports auditory hallucinations but did not elaborate. denies HI/VH. Continue current tx plan. 07/23 Patient remains psychotic, with paranoid delusions, auditory hallucinations and suicidal thinking. No insight at all. He said because of the persecution he still thinks about suicide all the time and he is considering trying it. Chief Dispatcher tried to discuss further but he says I am just taking 1 day at a time. Patient reports that AH are telling him that they were going to make him disappear, the going to bury him and then with their sophisticated technology are going to make a copy of him so that he will not be missed. Earlier today, patient was making a pushing motion with his hand while being examined by wound care nurse. 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 Last night patient was up all night long pacing the halls nonstop; literary writer asked about this and he said that just how the night went. He also said that he was resisting the affects of the Zyprexa but could not explain why other than to say that is just how the night went. -discussed case with Wound nurse who says both lesions on foot are healing well -will switch Zydis and increase to 30 mg 07/24 no change in presentation; remains floridly psychotic, responding to AH and contemplating SI. Patient refused Zydis last night would only take 10 mg of Zyprexa; he could not say why on inquiry but says he'll take increased dose tonight. Chief Dispatcher discussed possible need to change medication, however pt refused 1223 Patient continues restless pacing plan to increase olanzapine section filed for commitment and treatment plan as patient not stabilizing and refusing m edication changes 07/26/2023 Patient refus olanzapine last night continues with marked lack of insight not engaging in conversation 07/27: Patient remains isolative he did take olanzapine last night somewhat more subdued still with delusional material 1 on no insight 07/28: Patient presents calm but paranoid during 1:1. Pt stated, I feel anxious. I have intelligent agents doing experiments on me. They think I'm a special person. I know people who wear [employer] watches are FRED . Pt reports having auditory hallucinations; pt stated, I get messages like they play music in my head . Pt reports suicidal thoughts that come and go throughout the day. Continue current tx plan. 07/29 Patient remains psychotic and without any insight. Patient talked about how there is a secret organization, they have use technology to do something to his on eyes, microphones in his blood vessels that they can turn on and off... He continues to have auditory hallucinations that he is responding to. Discussed medications and patient does not want to change from Zyprexa saying he wants to give it a little more time to work; literary writer discussed involuntary commitment and substituted judgment and the likely need to change medications but agreed to leave Zyprexa on for now. He is not fond of the idea of weekly blood draws 07/30 Patient remains psychotic, talking to himself nonstop while pacing the hills. No insight at all. Patient does not like the idea of clozapine due to weekly blood draws; his worried what they might do with his blood once he gives it, despite medication education. He does agree to Geodon. -patient symptoms have not reduced any despite being on Zyprexa for 2 weeks, and at 30 mg for about a week. Will try to add ziprasidone to see if that can make a difference. 07/31 patient recently start do Geodon 20 mg b.i.d.; lowered Zyprexa to 20 mg; debating whether not to increased Geodon (plan is to cross titrate Zyprexa with Geodon) 08/04/23 Geodon increased over the weekend. Patient a little more relationally interactive; he said he feels like he is doing better but is very vague about symptoms and even told literary writer he does not really want to explain his symptoms thinking literary writer will not agree. He says he continues to feel persecuted by them and that it is serious. However he says that he is interacting with others more and that he went to a group. Patient does also dressed in casual clothing, 1st time since admission, saying he got them from the donation box. of note: Patient has been refusing Zyprexa so will discontinue and focus just on ziprasidone. While patient does have some improved affect, he remains internally preoccupied, talking to himself and pacing the halls all day almost without. Except for meals; only slept 2 hours last night and otherwise pacing the hallway. Also patient tried to cheek Geodon and it was observed to have been thrown in the trash. Patient said was accidental and was willing to take a replacement dose however this does seem to speak to his insight and questions the extent of improved presentation. 08/05 Patient remains psychotic, no insight at all, pacing the halls nonstop talking to self making hand gestures sometimes as if he is choking someone. Patient continues to try and cheek is medications however when found out doing so, submits to mouth checks. Chief Dispatcher discussed this with patient who said he just does not want to take the medication; he can not or will not really say why other than to repeat he just does not want to but he says that he will do so from now on. -so far it seems that nursing staff is able to observe patient and eventually get him to take medication; however without consistency it will be unclear if ziprasidone his effective. Discussing with team whether or not to implement ziprasidone IM for time period to ensure court ordered compliance) -will reconsult wound nurse to assess left foot 08/06 Last night, Patient again tried to deceive nursing and pretend that he took medication when he did not. After patient challenged on this he did in fact swallow his medication. This morning he submitted to rigorous mouth checks and nursing believes that he did indeed ingest his medication. Patient remains without any insight, floridly psychotic, nonstop talking to himself and pacing the hallways; disorganized behavior -not sure if patient is the same, worse or better which means he is likely not much different. Again discussed with nursing whether not to start with ziprasidone IM for a few days; will continue to hold off for now but strongly considering this as it is essential to know if this medication can be effective verses needing to again switch medications. 08/07 no change in presentation dry skin vs possible rash on b/l ankle; given benadryl for itchiness; will try lotion and monitor will get EKG and consider increasing Ziprasidone as no appreciable improvment/reduction of symptoms 08/10 says he's better, not feeling persecuted, but behaviors remain the same, internally preoccupied, pacing non-stop, self-dialoguing, isolative...concern is that nothing has really changed other than patient disclosing less qtc wnl. 08/12 today, SW and literary writer met with patient. ?He?shared?about?some?plans?he?has?once?discharged,?which? 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 ?Patient?still?feels Persecuted?by they and?or?FRED...??He?says?he?does?not?feel?it?is?quite?as?bad?as?when?he?1st?was?admitted. However,later on?he?accused?a?nurse?that?she?was?part?of?the?FRED?and?would?not?let?her?examine?his?foot wound.??Also?he?made?a?sexually?inappropriate?remark?to?her,?talking?about?a?medication?squirting...and said to her I like it when roman in my mouth, like tits and penis... 08/13 No?change?in?presentation;?discussed?with?patient?change?of?med?and?the?need?for?labs?but?he?refused. ANC?lab?necessary?to?start?clozapine?falls?into?court?order.??Patient?needed?staff/security?to?hold?him for?blood?draw and pt very upset about it. Regarding?medication?decisions:??Will?switch?patient?to?clozapine Patient?has?had?numerous?hospitalizations?this?past?year,?either?with?little?benefit?from?medications?or?quickly?discontinuing?them On?discharge?And?again?becoming?psychotic?and?unsafe. Even?at?nearly?max?doses?of?ziprasidone (or zyprex),?patient?has?remained?with?significantly?and?life?impairing?psychosis. Patient's?suicidality?has?lessened?and?he's?future?oriented (though with?completely?unrealistic?goals), However, he remains psychotic, with paranoid?delusions,?internally?preoccupied,no?insight,?disorganized in speech and behavior,?sexual inapropriate,talking?to?himself,?disheveled?and?isolative. Due to parnoia, he's not letting staff address his foot wound which needs to be attended to daily. He?is?taking?medication?only?because?it?is?court?ordered and monitored. Though?slightly?improved,?were?he?to?discharge,?he?still could not?function?on?his?own?in?the?community; he has no insight, has repeatedly tried to avoid taking medications and there?is?no?reason?to?expect?he would?remain adherent. He would quickly?decompensate, become suicidal. ?Discussed?at?length?with?team.??Patient?very?much?does?not?want?blood?draws,?however Clozapine?remains?the?most?likely?effective?medication?available?and?patient's?best?chance?at?gaining?insight?into?his?illness?and Progressing?him?towards?being?able?to?function?in?the?community. -Clozapine least likely to cause dystonic reaction which he had from Haldol, making other 1st generation antipsychotics less optimal -plan to change meds discussed with patient who was unable to appreciate reasoning, his illness and limits in functioning. 1/13/24: Continue current regimen and plans 08/16/2023: Continue current regimen and plans. Zyprexa in reaction to Clozaril refusal changed to Zyprexa Zydis 10 mg b.i.d. p.r.n. 08/17 Patient says he has no longer sedated and that was only because of Zyprexa and as asking for clonazepam to be returned and gabapentin increase back to former dose.. Chief Dispatcher agreed saying it was just held out of concern. Patient took Clozaril today and said he would continue to do so. Otherwise remains with same presentation, paranoid delusions, disorganized behavior 08/18 change clozapine to q.h.s. since patient complains of daytime sedation -refuses to let would nurse or anyone treat feet 08/19 continue current treatment plan; will leave clozapine at current dose for tonight but then continue titration 08/20 allowed blood draw; little more lighthearted and joked with literary writer 08/21 same presentation. Patient says he isn't really having voices anymore however it is very difficult to tell if patient is just saying what he knows staff is looking to hear. Behaviors remain disorganized, constant pacing, poor insight, will not let anyone address foot wound 08/22 patient is more sedated this morning. It is difficult to tell the cause of it. Is it because he continues to refuse to sleep and instead paces the hills and has been doing so for weeks? Is it because clonazepam was increased? Or is it because clozapine was titrated to quickly for him? Staff felt he was a little more confused this morning though this did seem to resolve. Because of this literary writer is lowering dose of Clozaril back to 25 mg and will titrate more slowly. Did not get a clonazepam level since patient gets traumatized with blood draws and if level supratherapeutic, this should be resolved by lowering dose. Will get level next time draw ANC. If patient remains too sedated, will again lower clonazepam dose in the morning 08/23 continue tx plan, with clozapine lowered to 25mg for now 08/24 no longer sedated; irritable; limited insight. Denying SI or AH and saying he feels better on the new medication. Still however with disorganized behaviors and refusing to let his feet be examined/treated; discussed refusal as relevant to his state of mind, that if thinking clearly would want tx to avoid infection and its consequences 08/25 Patient remains psychotic and difficult with which to engage. Continues to walk up and down the hills nonstop, talking to himself, making odd hand gestures. When asked about psychiatric/psychotic symptoms he denies them however there is no improvement in his behavior at all which remains disorganized. Intermittently incontinent of urine; although Clozaril can cause nocturnal enuresis, that patient becomes overly tired since he consistently it seems more likely that this incontinence is due to patient becoming excessively tired as he consistently refuses to let himself sleep in order to pace the halls. Will continue to titrate Clozaril. Although he verbally says he is doing better, denying voices or worried about persecution, his behaviors remain disorganized; his insight and judgment remain severely impaired as revealed by his refusal to have wound care, nursing examine or treat his feet even though he has been repeatedly educated on the serious risk of refusing treatment, including the possibility of eventual amputation. Patient clearly enjoys walking and he wants his feet to heal (having told literary writer so several times, but adding he does not trust proposed tx, thinking they'll make his foot worse...and saying he thinks they are getting better) and if patient were organized in his thinking or free from paranoid delusions,, he would want and except treatment. -Patient has thus far been refusing to let wound nurse or any nurse examine or treat his feet. Today however he allowed nursing, wound nurse and literary writer to assess which revealed concerning cellulitis of left lower extremity. He did allow wound nurse to bathe his feet but would not allow any additional treatment or bandaging with appropriate material. -Hospitalist consult placed to further assess and start antibiotics. 08/26 Patient refused antibiotics today. However, after infectious disease physician, Dr. Whalen came to examine patient, he did agree to getting an MRI, taking antibiotics and getting lab work done, including expanded lab work to assess infection... He asked for additional clonazepam for anxiety for these interventions to which literary writer agreed. Otherwise same presentation Hospitalist PA note from 08/25 Venous duplex negative for DVT, but shows significantly enlarged abnormal inguinal nodes, likely infectious/inflammatory. Unfortunately, the patient is refusing labs and vital signs to help assess the severity of the extensive cellulitis of nearly 40-50% LLE. XR does appear negative for osteomyelitis, thought would still recommend assessing ESR/CRP. Will consult ID for further input. -briefly talked to radiologist who said from Xray that 2nd metatarsal tip has a cyber fracture osvaldo to avascular necrosis Regarding blood work in context of being on Clozapine with LLE Cellulitis : Clozaril, as with other Antipsychotic medications, ?can affect liver, kidney, hyperglycemia, electrolytes which warrants monitoring.?However, Clozaril can also cause agranulocytosis, leukopenia and neutropenia. ?Currently patient has a severe cellulitis and has been refusing vitals and antibiotics.? Patient is on clozapine to treat severe paranoid delusions which directly impair his ability to understand and make judgments about his physical health. ?Stopping the titration of clozapine risks worsening his paranoid delusions.? Conversely, given the potential risks of clozapine it is imperative to know the extent of this infection and whether it is becoming systemic so as to know how to manage clozapine dosing and if it needs to be temporarily discontinued.?For this reason, will expand lab work ordered to include measuring parameters of infection. ?Chief Dispatcher discussed this with Dr. Marie, medical record assistant of the psychiatric unit who fully agrees with this plan. MRI IMPRESSION 08/26: 1. Findings suspicious for osteomyelitis of the 1st distal phalanx, most prominent at the tuft. 2. Probable shallow soft tissue ulcers at the dorsal aspect of the great toe and plantar/medial aspect of the distal great toe with underlying cellulitis. No abscess. 3. Mild marrow edema at the proximal aspect of the 2nd and 5th metatarsals is likely degenerative or stress related. 08/27 remains psychotic, disorganized -patient not septic, WBC, ANC WNL; can continue Clozaril titration However patient did take antibiotics today without too much problem. Chief Dispatcher discussed MRI results with patient and likelihood of osteomyelitis; he does not want IV antibiotics but agrees to take extended p.o. antibiotics. Chief Dispatcher discussed case, MRI, labs with Dr. Whalen who at this time feels that while IV antibiotics are preferable and have increased chance of treating osteomyelitis, there is no guarantee that IV antibiotics would be curative; at this point she recommends continuing current p.o. antibiotics and extending Bactrim trial to 1 month 08/28 pt stating he will take the antibiotics continue current treatmetn plan PLAN: Section 8/8b involuntary commitment and substituted judgment ordered Q 15 minute checks Left toe osteomyelitis/left lower limb cellulitis: Continue Bactrim 500 mg b.i.d. for 30 days Continue Augmentin for 6 days total ID following Schizophrenia: INCREASING TO Clozapine OdT 50 mg qhs.; (* COURT ORDERED; cannot refuse.. Give IM ziprasidone if refuses p.o.) -was transiently a little confused during previous titration; will retitrate more slowly Continue Clonazepam 1mg to bid; continue Gabapentin 600 mg t.i.d Methadone 85 mg daily ANC 3.3 (08/20) ANC 6800 Lft's mild-moderately elevated, likely due to Ziprasidone Medication options per court ordered substituted judgment: Clozapine Ziprasidone not effective even at therapeutic doses Thorazine Fluphenazine Perphenazine Zyprexa Past med trials: Zyprexa: not effective Seroquel sedation Haldol: dystonic reaction/tongue swelling, Risperdal: emotional numbing. Reason for continued inpatient stay Substantial Risk for: harm to self, inability to function, rapid decompensation and med/psych decompensation Time Spent With Patient Time: Total time managing care of this patient today ____ minutes.
[2023-08-28] MEDS: clonazePAM 0.5 MG TABLET PO (11:39)
[2023-08-28] MEDS: Nicotine Polacrilex 2 MG GUM BUCCAL (13:07)
[2023-08-28] MEDS: cloZAPine ODT 25 MG TAB.RAPDIS 50 MG PO (20:18)
[2023-08-29] MEDS: Nicotine Polacrilex 2 MG GUM 4 MG BUCCAL ×7 (01:20→20:35)
[2023-08-29] MEDS: clonazePAM 0.5 MG TABLET PO (05:52)
[2023-08-29 08:00] VITALS: RESP 18
[2023-08-29] MEDS: methADONE HCl 20 MG/2 ML ORAL.CONC 85 MG PO (08:17)
[2023-08-29] MEDS: Gabapentin 300 MG CAPSULE 600 MG PO ×3 (08:18→20:35)
[2023-08-29] MEDS: clonazePAM 1 MG TABLET PO ×2 (08:18→20:35)
[2023-08-29] MEDS: Sulfamethox/Trimeth 800/160 TABLET 1 TAB PO ×2 (10:30→22:11)
[2023-08-29] MEDS: Amoxicillin/Potassium Clav 875 MG TABLET PO ×2 (10:30→22:11)
--- NOTE | 2023-08-29 12:07 | P.PNPSI_ITS ---
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 take medication; however without consistency it will be unclear if ziprasidone his effective. Discussing with team whether or not to implement ziprasidone IM for time period to ensure court ordered compliance) -will reconsult wound nurse to assess left foot 08/06 Last night, Patient again tried to deceive nursing and pretend that he took medication when he did not. After patient challenged on this he did in fact swallow his medication. This morning he submitted to rigorous mouth checks and nursing believes that he did indeed ingest his medication. Patient remains without any insight, floridly psychotic, nonstop talking to himself and pacing the hallways; disorganized behavior -not sure if patient is the same, worse or better which means he is likely not much different. Again discussed with nursing whether not to start with ziprasidone IM for a few days; will continue to hold off for now but strongly considering this as it is essential to know if this medication can be effective verses needing to again switch medications. 08/07 no change in presentation dry skin vs possible rash on b/l ankle; given benadryl for itchiness; will try lotion and monitor will get EKG and consider increasing Ziprasidone as no appreciable improvment/reduction of symptoms 08/10 says he's better, not feeling persecuted, but behaviors remain the same, internally preoccupied, pacing non-stop, self-dialoguing, isolative...concern is that nothing has really changed other than patient disclosing less qtc wnl. 08/12 today, SW and comic book writer met with patient. ?He?shared?about?some?plans?he?has?once?discharged,?which? 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 ?Patient?still?feels Persecuted?by they and?or?FRED...??He?says?he?does?not?feel?it?is?quite?as?bad?as?when?he?1st?was?ad mitted. However,later on?he?accused?a?nurse?that?she?was?part?of?the?FRED?and?would?not?let?her?examine ?his?foot w ound.??Also?he?made?a?sexually?inappropriate?remark?to?her,?talking?about?a?medi cation?squirting...and said to her I like it when roman in my mouth, like tits and penis... 08/13 No?change?in?presentation;?discussed?with?patient?change?of?med?and?the?need?for ?labs?but?he?refused. A NC?lab?necessary?to?start?clozapine?falls?into?court?order.??Patient?needed?staf f/security?to?hold?him for?blood?draw and pt very upset about it. Regarding?medication?decisions:??Will?switch?patient?to?clozapine P atient?has?had?numerous?hospitalizations?this?past?year,?either?with?little?bene fit?from?medications?or?quickly?discontinuing?them On?discharge?And?again?becoming?psychotic?and?unsafe. Even?at?nearly?max?doses?of?ziprasidone (or zyprex),?patient?has?remained?with?significantly?and?life?impairing?psychosis. Patient's?suicidality?has?lessened?and?he's?future?oriented (though with?completely?unrealistic?goals), However, he remains psychotic, with paranoid?delusions,?internally?preoccupied,no?insight,?disorganized in speech and behavior,?sexual inapropriate,talking?to?himself,?disheveled?and?isolative. Due to parnoia, he's not letting staff address his foot wound which needs to be attended to daily. He?is?taking?medication?only?because?it?is?court?ordered and monitored. Though?slightly?improved,?were?he?to?discharge,?he?still could not?function?on?his?own?in?the?community; he has no insight, has repeatedly tried to avoid taking medications and there?is?no?reason?to?expect?he would?remain adherent. He would quickly?decompensate, become suicidal. ?Discussed?at?length?with?team.??Patient?very?much?does?not?want?blood?draws,?ho wever C lozapine?remains?the?most?likely?effective?medication?available?and?patient's?be st?chance?at?gaining?insight?into?his?illness?and Progressing?him?towards?being?able?to?function?in?the?community. -Clozapine least likely to cause dystonic reaction which he had from Haldol, making other 1st generation antipsychotics less optimal -plan to change meds discussed with patient who was unable to appreciate reasoning, his illness and limits in functioning. 08/15/23: Continue current regimen and plans 08/16/2023: Continue current regimen and plans. Zyprexa in reaction to Clozaril refusal changed to Zyprexa Zydis 10 mg b.i.d. p.r.n. 08/17 Patient says he has no longer sedated and that was only because of Zyprexa and as asking for clonazepam to be returned and gabapentin increase back to former dose.. Firefighter Marine agreed saying it was just held out of concern. Patient took Clozaril today and said he would continue to do so. Otherwise remains with same presentation, paranoid delusions, disorganized behavior 08/18 change clozapine to q.h.s. since patient complains of daytime sedation -refuses to let would nurse or anyone treat feet 08/19 continue current treatment plan; will leave clozapine at current dose for tonight but then continue titration 08/20 allowed blood draw; little more lighthearted and joked with comic book writer 08/21 same presentation. Patient says he isn't really having voices anymore however it is very difficult to tell if patient is just saying what he knows staff is looking to hear. Behaviors remain disorganized, constant pacing, poor insight, will not let anyone address foot wound 08/22 patient is more sedated this morning. It is difficult to tell the cause of it. Is it because he continues to refuse to sleep and instead paces the hills and has been doing so for weeks? Is it because clonazepam was increased? Or is it because clozapine was titrated to quickly for him? Staff felt he was a little more confused this morning though this did seem to resolve. Because of this comic book writer is lowering dose of Clozaril back to 25 mg and will titrate more slowly. Did not get a clonazepam level since patient gets traumatized with blood draws and if level supratherapeutic, this should be resolved by lowering dose. Will get level next time draw ANC. If patient remains too sedated, will again lower clonazepam dose in the morning 08/23 continue tx plan, with clozapine lowered to 25mg for now 08/24 no longer sedated; irritable; limited insight. Denying SI or AH and saying he feels better on the new medication. Still however with disorganized behaviors and refusing to let his feet be examined/treated; discussed refusal as relevant to his state of mind, that if thinking clearly would want tx to avoid infection and its consequences 08/25 Patient remains psychotic and difficult with which to engage. Continues to walk up and down the hills nonstop, talking to himself, making odd hand gestures. When asked about psychiatric/psychotic symptoms he denies them however there is no improvement in his behavior at all which remains disorganized. Intermittently incontinent of urine; although Clozaril can cause nocturnal enuresis, that patient becomes overly tired since he consistently it seems more likely that this incontinence is due to patient becoming excessively tired as he consistently refuses to let himself sleep in order to pace the halls. Will continue to titrate Clozaril. Although he verbally says he is doing better, denying voices or worried about persecution, his behaviors remain disorganized; his insight and judgment remain severely impaired as revealed by his refusal to have wound care, nursing examine or treat his feet even though he has been repeatedly educated on the serious risk of refusing treatment, including the possibility of eventual amputation. Patient clearly enjoys walking and he wants his feet to heal (having told comic book writer so several times, but adding he does not trust proposed tx, thinking they'll make his foot worse...and saying he thinks they are getting better) and if patient were organized in his thinking or free from paranoid delusions,, he would want and except treatment. -Patient has thus far been refusing to let wound nurse or any nurse examine or treat his feet. Today however he allowed nursing, wound nurse and comic book writer to assess which revealed concerning cellulitis of left lower extremity. He did allow wound nurse to bathe his feet but would not allow any additional treatment or bandaging with appropriate material. -Hospitalist consult placed to further assess and start antibiotics. 08/26 Patient refused antibiotics today. However, after infectious disease physician, Dr. Whalen came to examine patient, he did agree to getting an MRI, taking antibiotics and getting lab work done, including expanded lab work to assess infection... He asked for additional clonazepam for anxiety for these interventions to which comic book writer agreed. Otherwise same presentation Hospitalist JERRELL note from 08/25 Venous duplex negative for DVT, but shows significantly enlarged abnormal inguinal nodes, likely infectious/inflammatory. Unfortunately, the patient is refusing labs and vital signs to help assess the severity of the extensive cellulitis of nearly 40-50% LLE. XR does appear negative for osteomyelitis, thought would still recommend assessing ESR/CRP. Will consult ID for further input. -briefly talked to radiologist who said from Xray that 2nd metatarsal tip has a cyber fracture osvaldo to avascular necrosis Regarding blood work in context of being on Clozapine with LLE Cellulitis : Clozaril, as with other Antipsychotic medications, ?can affect liver, kidney, hyperglycemia, electrolytes which warrants monitoring.?However, Clozaril can also cause agranulocytosis, leukopenia and neutropenia. ?Currently patient has a severe cellulitis and has been refusing vitals and antibiotics.? Patient is on clozapine to treat severe paranoid delusions which directly impair his ability to understand and make judgments about his physical health. ?Stopping the titration of clozapine risks worsening his paranoid delusions.? Conversely, given the potential risks of clozapine it is imperative to know the extent of this infection and whether it is becoming systemic so as to know how to manage clozapine dosing and if it needs to be temporarily discontinued.?For this reason, will expand lab work ordered to include measuring parameters of infection. ?Firefighter Marine discussed this with Dr. Marie, medical review coordinator of the psychiatric unit who fully agrees with this plan. MRI IMPRESSION 08/26: 1. Findings suspicious for osteomyelitis of the 1st distal phalanx, most prominent at the tuft. 2. Probable shallow soft tissue ulcers at the dorsal aspect of the great toe and plantar/medial aspect of the distal great toe with underlying cellulitis. No abscess. 3. Mild marrow edema at the proximal aspect of the 2nd and 5th metatarsals is likely degenerative or stress related. 08/27 remains psychotic, disorganized -patient not septic, WBC, ANC WNL; can continue Clozaril titration However patient did take antibiotics today without too much problem. Firefighter Marine discussed MRI results with patient and likelihood of osteomyelitis; he does not want IV antibiotics but agrees to take extended p.o. antibiotics. Firefighter Marine discussed case, MRI, labs with Dr. Whalen who at this time feels that while IV antibiotics are preferable and have increased chance of treating osteomyelitis, there is no guarantee that IV antibiotics would be curative; at this point she recommends continuing current p.o. antibiotics and extending Bactrim trial to 1 month 08/28 pt stating he will take the antibiotics continue current treatmetn plan 08/29/23 continue tx paln PLAN: Section 8/8b involuntary commitment and substituted judgment ordered Q 15 minute checks Left toe osteomyelitis/left lower limb cellulitis: Continue Bactrim 500 mg b.i.d. for 30 days Continue Augmentin for 6 days total ID following Schizophrenia: INCREASING TO Clozapine OdT 50 mg qhs.; (* COURT ORDERED; cannot refuse.. Give IM ziprasidone if refuses p.o.) -was transiently a little confused during previous titration; will retitrate more slowly Continue Clonazepam 1mg to bid; continue Gabapentin 600 mg t.i.d Methadone 85 mg daily ANC 3.3 (08/20) ANC 6800 Lft's mild-moderately elevated, likely due to Ziprasidone Medication options per court ordered substituted judgment: Clozapine Ziprasidone not effective even at therapeutic doses Thorazine Fluphenazine Perphenazine Zyprexa Past med trials: Zyprexa: not effective Seroquel sedation Haldol: dystonic reaction/tongue swelling, Risperdal: emotional numbing. Patient educated on: therapeutic strategies and medical condition Informed Consent: understands and further education needed Reason for continued inpatient stay Substantial Risk for: harm to self, rapid decompensation and med/psych decompensation Time Spent With Patient Time: Total time managing care of this patient today ____ minutes.
[2023-08-29] MEDS: cloZAPine ODT 25 MG TAB.RAPDIS 50 MG PO (22:10)
[2023-08-30] MEDS: Nicotine Polacrilex 2 MG GUM 4 MG BUCCAL ×6 (06:05→21:32)
[2023-08-30] MEDS: clonazePAM 0.5 MG TABLET PO (06:05)
[2023-08-30 08:00] VITALS: RESP 18
[2023-08-30] MEDS: Gabapentin 300 MG CAPSULE 600 MG PO ×3 (08:15→21:32)
[2023-08-30] MEDS: methADONE HCl 20 MG/2 ML ORAL.CONC 85 MG PO (08:15)
[2023-08-30] MEDS: clonazePAM 1 MG TABLET PO ×2 (08:15→21:54)
[2023-08-30] MEDS: Amoxicillin/Potassium Clav 875 MG TABLET PO ×2 (10:15→21:32)
[2023-08-30] MEDS: Sulfamethox/Trimeth 800/160 TABLET 1 TAB PO ×2 (10:15→21:32)
--- NOTE | 2023-08-30 10:19 | P.PNPSI_ITS ---
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 not to implement ziprasidone IM for time period to ensure court ordered compliance) -will reconsult wound nurse to assess left foot 08/06 Last night, Patient again tried to deceive nursing and pretend that he took medication when he did not. After patient challenged on this he did in fact swallow his medication. This morning he submitted to rigorous mouth checks and nursing believes that he did indeed ingest his medication. Patient remains without any insight, floridly psychotic, nonstop talking to himself and pacing the hallways; disorganized behavior -not sure if patient is the same, worse or better which means he is likely not much different. Again discussed with nursing whether not to start with ziprasidone IM for a few days; will continue to hold off for now but strongly considering this as it is essential to know if this medication can be effective verses needing to again switch medications. 08/07 no change in presentation dry skin vs possible rash on b/l ankle; given benadryl for itchiness; will try lotion and monitor will get EKG and consider increasing Ziprasidone as no appreciable improvment/reduction of symptoms 08/10 says he's better, not feeling persecuted, but behaviors remain the same, internally preoccupied, pacing non-stop, self-dialoguing, isolative...concern is that nothing has really changed other than patient disclosing less qtc wnl. 08/12 today, SW and travel writer met with patient. ?He?shared?about?some?plans?he?has?once?discharged,?which? 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 ?Patient?still?feels Persecuted?by they and?or?FRED...??He?says?he?does?not?feel?it?is?quite?as?bad?as?when?he?1st?was?ad mitted. However,later on?he?accused?a?nurse?that?she?was?part?of?the?FRED?and?would?not?let?her?examine ?his?foot w ound.??Also?he?made?a?sexually?inappropriate?remark?to?her,?talking?about?a?medi cation?squirting...and said to her I like it when roman in my mouth, like tits and penis... 08/13 No?change?in?presentation;?discussed?with?patient?change?of?med?and?the?need?for ?labs?but?he?refused. A NC?lab?necessary?to?start?clozapine?falls?into?court?order.??Patient?needed?staf f/security?to?hold?him for?blood?draw and pt very upset about it. Regarding?medication?decisions:??Will?switch?patient?to?clozapine P atient?has?had?numerous?hospitalizations?this?past?year,?either?with?little?bene fit?from?medications?or?quickly?discontinuing?them On?discharge?And?again?becoming?psychotic?and?unsafe. Even?at?nearly?max?doses?of?ziprasidone (or zyprex),?patient?has?remained?with?significantly?and?life?impairing?psychosis. Patient's?suicidality?has?lessened?and?he's?future?oriented (though with?completely?unrealistic?goals), However, he remains psychotic, with paranoid?delusions,?internally?preoccupied,no?insight,?disorganized in speech and behavior,?sexual inapropriate,talking?to?himself,?disheveled?and?isolative. Due to parnoia, he's not letting staff address his foot wound which needs to be attended to daily. He?is?taking?medication?only?because?it?is?court?ordered and monitored. Though?slightly?improved,?were?he?to?discharge,?he?still could not?function?on?his?own?in?the?community; he has no insight, has repeatedly tried to avoid taking medications and there?is?no?reason?to?expect?he would?remain adherent. He would quickly?decompensate, become suicidal. ?Discussed?at?length?with?team.??Patient?very?much?does?not?want?blood?draws,?ho wever C lozapine?remains?the?most?likely?effective?medication?available?and?patient's?be st?chance?at?gaining?insight?into?his?illness?and Progressing?him?towards?being?able?to?function?in?the?community. -Clozapine least likely to cause dystonic reaction which he had from Haldol, making other 1st generation antipsychotics less optimal -plan to change meds discussed with patient who was unable to appreciate reasoning, his illness and limits in functioning. 08/15/23: Continue current regimen and plans 08/16/2023: Continue current regimen and plans. Zyprexa in reaction to Clozaril refusal changed to Zyprexa Zydis 10 mg b.i.d. p.r.n. 08/17 Patient says he has no longer sedated and that was only because of Zyprexa and as asking for clonazepam to be returned and gabapentin increase back to former dose.. Senior [employer] Developer agreed saying it was just held out of concern. Patient took Clozaril today and said he would continue to do so. Otherwise remains with same presentation, paranoid delusions, disorganized behavior 08/18 change clozapine to q.h.s. since patient complains of daytime sedation -refuses to let would nurse or anyone treat feet 08/19 continue current treatment plan; will leave clozapine at current dose for tonight but then continue titration 08/20 allowed blood draw; little more lighthearted and joked with travel writer 08/21 same presentation. Patient says he isn't really having voices anymore however it is very difficult to tell if patient is just saying what he knows staff is looking to hear. Behaviors remain disorganized, constant pacing, poor insight, will not let anyone address foot wound 08/22 patient is more sedated this morning. It is difficult to tell the cause of it. Is it because he continues to refuse to sleep and instead paces the hills and has been doing so for weeks? Is it because clonazepam was increased? Or is it because clozapine was titrated to quickly for him? Staff felt he was a little more confused this morning though this did seem to resolve. Because of this travel writer is lowering dose of Clozaril back to 25 mg and will titrate more slowly. Did not get a clonazepam level since patient gets traumatized with blood draws and if level supratherapeutic, this should be resolved by lowering dose. Will get level next time draw ANC. If patient remains too sedated, will again lower clonazepam dose in the morning 08/23 continue tx plan, with clozapine lowered to 25mg for now 08/24 no longer sedated; irritable; limited insight. Denying SI or AH and saying he feels better on the new medication. Still however with disorganized behaviors and refusing to let his feet be examined/treated; discussed refusal as relevant to his state of mind, that if thinking clearly would want tx to avoid infection and its consequences 08/25 Patient remains psychotic and difficult with which to engage. Continues to walk up and down the hills nonstop, talking to himself, making odd hand gestures. When asked about psychiatric/psychotic symptoms he denies them however there is no improvement in his behavior at all which remains disorganized. Intermittently incontinent of urine; although Clozaril can cause nocturnal enuresis, that patient becomes overly tired since he consistently it seems more likely that this incontinence is due to patient becoming excessively tired as he consistently refuses to let himself sleep in order to pace the halls. Will continue to titrate Clozaril. Although he verbally says he is doing better, denying voices or worried about persecution, his behaviors remain disorganized; his insight and judgment remain severely impaired as revealed by his refusal to have wound care, nursing examine or treat his feet even though he has been repeatedly educated on the serious risk of refusing treatment, including the possibility of eventual amputation. Patient clearly enjoys walking and he wants his feet to heal (having told travel writer so several times, but adding he does not trust proposed tx, thinking they'll make his foot worse...and saying he thinks they are getting better) and if patient were organized in his thinking or free from paranoid delusions,, he would want and except treatment. -Patient has thus far been refusing to let wound nurse or any nurse examine or treat his feet. Today however he allowed nursing, wound nurse and travel writer to assess which revealed concerning cellulitis of left lower extremity. He did allow wound nurse to bathe his feet but would not allow any additional treatment or bandaging with appropriate material. -Hospitalist consult placed to further assess and start antibiotics. 08/26 Patient refused antibiotics today. However, after infectious disease physician, Dr. Whalen came to examine patient, he did agree to getting an MRI, taking antibiotics and getting lab work done, including expanded lab work to assess infection... He asked for additional clonazepam for anxiety for these interventions to which travel writer agreed. Otherwise same presentation Hospitalist JERRELL note from 08/25 Venous duplex negative for DVT, but shows significantly enlarged abnormal inguinal nodes, likely infectious/inflammatory. Unfortunately, the patient is refusing labs and vital signs to help assess the severity of the extensive cellulitis of nearly 40-50% LLE. XR does appear negative for osteomyelitis, thought would still recommend assessing ESR/CRP. Will consult ID for further input. -briefly talked to radiologist who said from Xray that 2nd metatarsal tip has a cyber fracture osvaldo to avascular necrosis Regarding blood work in context of being on Clozapine with LLE Cellulitis : Clozaril, as with other Antipsychotic medications, ?can affect liver, kidney, hyperglycemia, electrolytes which warrants monitoring.?However, Clozaril can also cause agranulocytosis, leukopenia and neutropenia. ?Currently patient has a severe cellulitis and has been refusing vitals and antibiotics.? Patient is on clozapine to treat severe paranoid delusions which directly impair his ability to understand and make judgments about his physical health. ?Stopping the titration of clozapine risks worsening his paranoid delusions.? Conversely, given the potential risks of clozapine it is imperative to know the extent of this infection and whether it is becoming systemic so as to know how to manage clozapine dosing and if it needs to be temporarily discontinued.?For this reason, will expand lab work ordered to include measuring parameters of infection. ?Senior [employer]adata Developer discussed this with Dr. Marie, medical secretary receptionist of the psychiatric unit who fully agrees with this plan. MRI IMPRESSION 08/26: 1. Findings suspicious for osteomyelitis of the 1st distal phalanx, most prominent at the tuft. 2. Probable shallow soft tissue ulcers at the dorsal aspect of the great toe and plantar/medial aspect of the distal great toe with underlying cellulitis. No abscess. 3. Mild marrow edema at the proximal aspect of the 2nd and 5th metatarsals is likely degenerative or stress related. 08/27 remains psychotic, disorganized -patient not septic, WBC, ANC WNL; can continue Clozaril titration However patient did take antibiotics today without too much problem. Senior Teradata Developer discussed MRI results with patient and likelihood of osteomyelitis; he does not want IV antibiotics but agrees to take extended p.o. antibiotics. Senior Teradata Developer discussed case, MRI, labs with Dr. Whalen who at this time feels that while IV antibiotics are preferable and have increased chance of treating osteomyelitis, there is no guarantee that IV antibiotics would be curative; at this point she recommends continuing current p.o. antibiotics and extending Bactrim trial to 1 month 08/28 pt stating he will take the antibiotics continue current treatmetn plan 08/29/23 continue tx paln 08/30/23 continue tx plan PLAN: Section 8/8b involuntary commitment and substituted judgment ordered Q 15 minute checks Left toe osteomyelitis/left lower limb cellulitis: Continue Bactrim 500 mg b.i.d. for 30 days Continue Augmentin for 6 days total ID following Schizophrenia: INCREASING TO Clozapine OdT 50 mg qhs.; (* COURT ORDERED; cannot refuse.. Give IM ziprasidone if refuses p.o.) -was transiently a little confused during previous titration; will retitrate more slowly Continue Clonazepam 1mg to bid; continue Gabapentin 600 mg t.i.d Methadone 85 mg daily ANC 3.3 (08/20) ANC 6800 Lft's mild-moderately elevated, likely due to Ziprasidone Medication options per court ordered substituted judgment: Clozapine Ziprasidone not effective even at therapeutic doses Thorazine Fluphenazine Perphenazine Zyprexa Past med trials: Zyprexa: not effective Seroquel sedation Haldol: dystonic reaction/tongue swelling, Risperdal: emotional numbing. Reason for continued inpatient stay Substantial Risk for: harm to self, inability to function and rapid decompensation Time Spent With Patient Time: Total time managing care of this patient today ____ minutes.
[2023-08-30 18:00] VITALS: RESP 18
[2023-08-30] MEDS: cloZAPine 25 MG TABLET 12.5 MG PO (21:32)
[2023-08-30] MEDS: cloZAPine ODT 25 MG TAB.RAPDIS 50 MG PO (21:32)
[2023-08-31] MEDS: Nicotine Polacrilex 2 MG GUM 4 MG BUCCAL ×6 (05:21→21:12)
--- NOTE | 2023-08-31 07:46 | HO.PSYCHPN ---
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 08/12 today, SW and policy writer typist met with patient. ?He?shared?about?some?plans?he?has?once?discharged,?which? 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 ?Patient?still?feels Persecuted?by they and?or?FRED...??He?says?he?does?not?feel?it?is?quite?as?bad?as?when?he?1st?was?admitted. However,later on?he?accused?a?nurse?that?she?was?part?of?the?FRED?and?would?not?let?her?examine?his?foot wound.??Also?he?made?a?sexually?inappropriate?remark?to?her,?talking?about?a?medication?squirting...and said to her I like it when roman in my mouth, like tits and penis... 08/13 No?change?in?presentation;?discussed?with?patient?change?of?med?and?the?need?for?labs?but?he?refused. ANC?lab?necessary?to?start?clozapine?falls?into?court?order.??Patient?needed?staff/security?to?hold?him for?blood?draw and pt very upset about it. Regarding?medication?decisions:??Will?switch?patient?to?clozapine Patient?has?had?numerous?hospitalizations?this?past?year,?either?with?little?benefit?from?medications?or?quickly?discontinuing?them On?discharge?And?again?becoming?psychotic?and?unsafe. Even?at?nearly?max?doses?of?ziprasidone (or zyprex),?patient?has?remained?with?significantly?and?life?impairing?psychosis. Patient's?suicidality?has?lessened?and?he's?future?oriented (though with?completely?unrealistic?goals), However, he remains psychotic, with paranoid?delusions,?internally?preoccupied,no?insight,?disorganized in speech and behavior,?sexual inapropriate,talking?to?himself,?disheveled?and?isolative. Due to parnoia, he's not letting staff address his foot wound which needs to be attended to daily. He?is?taking?medication?only?because?it?is?court?ordered and monitored. Though?slightly?improved,?were?he?to?discharge,?he?still could not?function?on?his?own?in?the?community; he has no insight, has repeatedly tried to avoid taking medications and there?is?no?reason?to?expect?he would?remain adherent. He would quickly?decompensate, become suicidal. ?Discussed?at?length?with?team.??Patient?very?much?does?not?want?blood?draws,?however Clozapine?remains?the?most?likely?effective?medication?available?and?patient's?best?chance?at?gaining?insight?into?his?illness?and Progressing?him?towards?being?able?to?function?in?the?community. -Clozapine least likely to cause dystonic reaction which he had from Haldol, making other 1st generation antipsychotics less optimal -plan to change meds discussed with patient who was unable to appreciate reasoning, his illness and limits in functioning. 08/15/23: Continue current regimen and plans 08/16/2023: Continue current regimen and plans. Zyprexa in reaction to Clozaril refusal changed to Zyprexa Zydis 10 mg b.i.d. p.r.n. 08/17 Patient says he has no longer sedated and that was only because of Zyprexa and as asking for clonazepam to be returned and gabapentin increase back to former dose.. [employer] Senior Specialist agreed saying it was just held out of concern. Patient took Clozaril today and said he would continue to do so. Otherwise remains with same presentation, paranoid delusions, disorganized behavior 08/18 change clozapine to q.h.s. since patient complains of daytime sedation -refuses to let would nurse or anyone treat feet 08/19 continue current treatment plan; will leave clozapine at current dose for tonight but then continue titration 08/20 allowed blood draw; little more lighthearted and joked with policy writer typist 08/21 same presentation. Patient says he isn't really having voices anymore however it is very difficult to tell if patient is just saying what he knows staff is looking to hear. Behaviors remain disorganized, constant pacing, poor insight, will not let anyone address foot wound 08/22 patient is more sedated this morning. It is difficult to tell the cause of it. Is it because he continues to refuse to sleep and instead paces the hills and has been doing so for weeks? Is it because clonazepam was increased? Or is it because clozapine was titrated to quickly for him? Staff felt he was a little more confused this morning though this did seem to resolve. Because of this policy writer typist is lowering dose of Clozaril back to 25 mg and will titrate more slowly. Did not get a clonazepam level since patient gets traumatized with blood draws and if level supratherapeutic, this should be resolved by lowering dose. Will get level next time draw ANC. If patient remains too sedated, will again lower clonazepam dose in the morning 08/23 continue tx plan, with clozapine lowered to 25mg for now 08/24 no longer sedated; irritable; limited insight. Denying SI or AH and saying he feels better on the new medication. Still however with disorganized behaviors and refusing to let his feet be examined/treated; discussed refusal as relevant to his state of mind, that if thinking clearly would want tx to avoid infection and its consequences 08/25 Patient remains psychotic and difficult with which to engage. Continues to walk up and down the hills nonstop, talking to himself, making odd hand gestures. When asked about psychiatric/psychotic symptoms he denies them however there is no improvement in his behavior at all which remains disorganized. Intermittently incontinent of urine; although Clozaril can cause nocturnal enuresis, that patient becomes overly tired since he consistently it seems more likely that this incontinence is due to patient becoming excessively tired as he consistently refuses to let himself sleep in order to pace the halls. Will continue to titrate Clozaril. Although he verbally says he is doing better, denying voices or worried about persecution, his behaviors remain disorganized; his insight and judgment remain severely impaired as revealed by his refusal to have wound care, nursing examine or treat his feet even though he has been repeatedly educated on the serious risk of refusing treatment, including the possibility of eventual amputation. Patient clearly enjoys walking and he wants his feet to heal (having told policy writer typist so several times, but adding he does not trust proposed tx, thinking they'll make his foot worse...and saying he thinks they are getting better) and if patient were organized in his thinking or free from paranoid delusions,, he would want and except treatment. -Patient has thus far been refusing to let wound nurse or any nurse examine or treat his feet. Today however he allowed nursing, wound nurse and policy writer typist to assess which revealed concerning cellulitis of left lower extremity. He did allow wound nurse to bathe his feet but would not allow any additional treatment or bandaging with appropriate material. -Hospitalist consult placed to further assess and start antibiotics. 08/26 Patient refused antibiotics today. However, after infectious disease physician, Dr. Whalen came to examine patient, he did agree to getting an MRI, taking antibiotics and getting lab work done, including expanded lab work to assess infection... He asked for additional clonazepam for anxiety for these interventions to which policy writer typist agreed. Otherwise same presentation Hospitalist PA note from 08/25 Venous duplex negative for DVT, but shows significantly enlarged abnormal inguinal nodes, likely infectious/inflammatory. Unfortunately, the patient is refusing labs and vital signs to help assess the severity of the extensive cellulitis of nearly 40-50% LLE. XR does appear negative for osteomyelitis, thought would still recommend assessing ESR/CRP. Will consult ID for further input. -briefly talked to radiologist who said from Xray that 2nd metatarsal tip has a cyber fracture osvaldo to avascular necrosis Regarding blood work in context of being on Clozapine with LLE Cellulitis : Clozaril, as with other Antipsychotic medications, ?can affect liver, kidney, hyperglycemia, electrolytes which warrants monitoring.?However, Clozaril can also cause agranulocytosis, leukopenia and neutropenia. ?Currently patient has a severe cellulitis and has been refusing vitals and antibiotics.? Patient is on clozapine to treat severe paranoid delusions which directly impair his ability to understand and make judgments about his physical health. ?Stopping the titration of clozapine risks worsening his paranoid delusions.? Conversely, given the potential risks of clozapine it is imperative to know the extent of this infection and whether it is becoming systemic so as to know how to manage clozapine dosing and if it needs to be temporarily discontinued.?For this reason, will expand lab work ordered to include measuring parameters of infection. ?[employer] Senior Specialist discussed this with Dr. Marie, manager medical writing of the psychiatric unit who fully agrees with this plan. MRI IMPRESSION 08/26: 1. Findings suspicious for osteomyelitis of the 1st distal phalanx, most prominent at the tuft. 2. Probable shallow soft tissue ulcers at the dorsal aspect of the great toe and plantar/medial aspect of the distal great toe with underlying cellulitis. No abscess. 3. Mild marrow edema at the proximal aspect of the 2nd and 5th metatarsals is likely degenerative or stress related. 08/27 remains psychotic, disorganized -patient not septic, WBC, ANC WNL; can continue Clozaril titration However patient did take antibiotics today without too much problem. [employer] Senior Specialist discussed MRI results with patient and likelihood of osteomyelitis; he does not want IV antibiotics but agrees to take extended p.o. antibiotics. [employer] Senior Specialist discussed case, MRI, labs with Dr. Whalen who at this time feels that while IV antibiotics are preferable and have increased chance of treating osteomyelitis, there is no guarantee that IV antibiotics would be curative; at this point she recommends continuing current p.o. antibiotics and extending Bactrim trial to 1 month 08/28 pt stating he will take the antibiotics continue current treatmetn plan 08/31 appreciate recs from ID continue titration of Clozapine as tolerated PLAN: Section 8/8b involuntary commitment and substituted judgment ordered Q 15 minute checks Left toe osteomyelitis/(cellulitis resolved): Options are removal affected bone toe (patient doesnt want this) iV antibiotic suppressiv ( 6 weeks ,70% no cure) Po suppression ( may help and patient will accept this (Po Augmentin for two weeks and po Bactrim DS bid for 4 weeks and then maybe one Bactrim DS every ,, Thursday indefinitely Schizophrenia: Continue Clozapine OdT 62.5 mg qhs.; (* COURT ORDERED; cannot refuse.. Give IM ziprasidone if refuses p.o.) -was transiently a little confused during previous titration; will retitrate more slowly Continue Clonazepam 1mg to bid; continue Gabapentin 600 mg t.i.d Methadone 85 mg daily ANC 3.3 (08/20) ANC 6800 Lft's mild-moderately elevated, likely due to Ziprasidone Medication options per court ordered substituted judgment: Clozapine Ziprasidone not effective even at therapeutic doses Thorazine Fluphenazine Perphenazine Zyprexa Past med trials: Zyprexa: not effective Seroquel sedation Haldol: dystonic reaction/tongue swelling, Risperdal: emotional numbing. Patient educated on: medication risk/benefits and medical condition Informed Consent: understands and further education needed Reason for continued inpatient stay Substantial Risk for: inability to function Time Spent With Patient Time: Total time managing care of this patient today ____ minutes.
[2023-08-31 08:00] VITALS: PULSE 119; RESP 16; O2SAT 97
[2023-08-31] MEDS: methADONE HCl 20 MG/2 ML ORAL.CONC 85 MG PO (08:06)
[2023-08-31] MEDS: Amoxicillin/Potassium Clav 875 MG TABLET PO ×2 (08:06→22:43)
[2023-08-31] MEDS: Sulfamethox/Trimeth 800/160 TABLET 1 TAB PO ×2 (08:06→22:42)
[2023-08-31] MEDS: Gabapentin 300 MG CAPSULE 600 MG PO ×3 (08:06→20:37)
[2023-08-31] MEDS: clonazePAM 1 MG TABLET PO ×2 (10:36→20:37)
[2023-08-31] MEDS: clonazePAM 0.5 MG TABLET PO (13:01)
[2023-08-31 18:00] VITALS: RESP 16
[2023-08-31] MEDS: cloZAPine 25 MG TABLET 12.5 MG PO (22:42)
[2023-08-31] MEDS: cloZAPine ODT 25 MG TAB.RAPDIS 50 MG PO (22:42)
[2023-09-01] MEDS: Nicotine Polacrilex 2 MG GUM 4 MG BUCCAL ×6 (00:44→20:52)
[2023-09-01] MEDS: clonazePAM 0.5 MG TABLET PO (06:30)
[2023-09-01] MEDS: methADONE HCl 20 MG/2 ML ORAL.CONC 85 MG PO (08:07)
[2023-09-01] MEDS: Gabapentin 300 MG CAPSULE 600 MG PO ×3 (08:08→20:16)
[2023-09-01] MEDS: clonazePAM 1 MG TABLET PO ×2 (08:09→20:16)
[2023-09-01 08:10] VITALS: RESP 18; TEMP 36.6
[2023-09-01] MEDS: Sulfamethox/Trimeth 800/160 TABLET 1 TAB PO ×2 (12:44→20:50)
[2023-09-01] MEDS: Amoxicillin/Potassium Clav 875 MG TABLET PO (12:44)
--- NOTE | 2023-09-01 12:46 | HO.PSYCHPN ---
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 and?or?FRED...??He?says?he?does?not?feel?it?is?quite?as?bad?as?when?he?1st?was?admitted. However,later on?he?accused?a?nurse?that?she?was?part?of?the?FRED?and?would?not?let?her?examine?his?foot wound.??Also?he?made?a?sexually?inappropriate?remark?to?her,?talking?about?a?medication?squirting...and said to her I like it when roman in my mouth, like tits and penis... 08/13 No?change?in?presentation;?discussed?with?patient?change?of?med?and?the?need?for?labs?but?he?refused. ANC?lab?necessary?to?start?clozapine?falls?into?court?order.??Patient?needed?staff/security?to?hold?him for?blood?draw and pt very upset about it. Regarding?medication?decisions:??Will?switch?patient?to?clozapine Patient?has?had?numerous?hospitalizations?this?past?year,?either?with?little?benefit?from?medications?or?quickly?discontinuing?them On?discharge?And?again?becoming?psychotic?and?unsafe. Even?at?nearly?max?doses?of?ziprasidone (or zyprex),?patient?has?remained?with?significantly?and?life?impairing?psychosis. Patient's?suicidality?has?lessened?and?he's?future?oriented (though with?completely?unrealistic?goals), However, he remains psychotic, with paranoid?delusions,?internally?preoccupied,no?insight,?disorganized in speech and behavior,?sexual inapropriate,talking?to?himself,?disheveled?and?isolative. Due to parnoia, he's not letting staff address his foot wound which needs to be attended to daily. He?is?taking?medication?only?because?it?is?court?ordered and monitored. Though?slightly?improved,?were?he?to?discharge,?he?still could not?function?on?his?own?in?the?community; he has no insight, has repeatedly tried to avoid taking medications and there?is?no?reason?to?expect?he would?remain adherent. He would quickly?decompensate, become suicidal. ?Discussed?at?length?with?team.??Patient?very?much?does?not?want?blood?draws,?however Clozapine?remains?the?most?likely?effective?medication?available?and?patient's?best?chance?at?gaining?insight?into?his?illness?and Progressing?him?towards?being?able?to?function?in?the?community. -Clozapine least likely to cause dystonic reaction which he had from Haldol, making other 1st generation antipsychotics less optimal -plan to change meds discussed with patient who was unable to appreciate reasoning, his illness and limits in functioning. 08/15/23: Continue current regimen and plans 08/16/2023: Continue current regimen and plans. Zyprexa in reaction to Clozaril refusal changed to Zyprexa Zydis 10 mg b.i.d. p.r.n. 08/17 Patient says he has no longer sedated and that was only because of Zyprexa and as asking for clonazepam to be returned and gabapentin increase back to former dose.. Renderer agreed saying it was just held out of concern. Patient took Clozaril today and said he would continue to do so. Otherwise remains with same presentation, paranoid delusions, disorganized behavior 08/18 change clozapine to q.h.s. since patient complains of daytime sedation -refuses to let would nurse or anyone treat feet 08/19 continue current treatment plan; will leave clozapine at current dose for tonight but then continue titration 08/20 allowed blood draw; little more lighthearted and joked with typewriter operator automatic 08/21 same presentation. Patient says he isn't really having voices anymore however it is very difficult to tell if patient is just saying what he knows staff is looking to hear. Behaviors remain disorganized, constant pacing, poor insight, will not let anyone address foot wound 08/22 patient is more sedated this morning. It is difficult to tell the cause of it. Is it because he continues to refuse to sleep and instead paces the hills and has been doing so for weeks? Is it because clonazepam was increased? Or is it because clozapine was titrated to quickly for him? Staff felt he was a little more confused this morning though this did seem to resolve. Because of this typewriter operator automatic is lowering dose of Clozaril back to 25 mg and will titrate more slowly. Did not get a clonazepam level since patient gets traumatized with blood draws and if level supratherapeutic, this should be resolved by lowering dose. Will get level next time draw ANC. If patient remains too sedated, will again lower clonazepam dose in the morning 08/23 continue tx plan, with clozapine lowered to 25mg for now 08/24 no longer sedated; irritable; limited insight. Denying SI or AH and saying he feels better on the new medication. Still however with disorganized behaviors and refusing to let his feet be examined/treated; discussed refusal as relevant to his state of mind, that if thinking clearly would want tx to avoid infection and its consequences 08/25 Patient remains psychotic and difficult with which to engage. Continues to walk up and down the hills nonstop, talking to himself, making odd hand gestures. When asked about psychiatric/psychotic symptoms he denies them however there is no improvement in his behavior at all which remains disorganized. Intermittently incontinent of urine; although Clozaril can cause nocturnal enuresis, that patient becomes overly tired since he consistently it seems more likely that this incontinence is due to patient becoming excessively tired as he consistently refuses to let himself sleep in order to pace the halls. Will continue to titrate Clozaril. Although he verbally says he is doing better, denying voices or worried about persecution, his behaviors remain disorganized; his insight and judgment remain severely impaired as revealed by his refusal to have wound care, nursing examine or treat his feet even though he has been repeatedly educated on the serious risk of refusing treatment, including the possibility of eventual amputation. Patient clearly enjoys walking and he wants his feet to heal (having told typewriter operator automatic so several times, but adding he does not trust proposed tx, thinking they'll make his foot worse...and saying he thinks they are getting better) and if patient were organized in his thinking or free from paranoid delusions,, he would want and except treatment. -Patient has thus far been refusing to let wound nurse or any nurse examine or treat his feet. Today however he allowed nursing, wound nurse and typewriter operator automatic to assess which revealed concerning cellulitis of left lower extremity. He did allow wound nurse to bathe his feet but would not allow any additional treatment or bandaging with appropriate material. -Hospitalist consult placed to further assess and start antibiotics. 08/26 Patient refused antibiotics today. However, after infectious disease physician, Dr. Whalen came to examine patient, he did agree to getting an MRI, taking antibiotics and getting lab work done, including expanded lab work to assess infection... He asked for additional clonazepam for anxiety for these interventions to which typewriter operator automatic agreed. Otherwise same presentation Hospitalist PA note from 08/25 Venous duplex negative for DVT, but shows significantly enlarged abnormal inguinal nodes, likely infectious/inflammatory. Unfortunately, the patient is refusing labs and vital signs to help assess the severity of the extensive cellulitis of nearly 40-50% LLE. XR does appear negative for osteomyelitis, thought would still recommend assessing ESR/CRP. Will consult ID for further input. -briefly talked to radiologist who said from Xray that 2nd metatarsal tip has a cyber fracture osvaldo to avascular necrosis Regarding blood work in context of being on Clozapine with LLE Cellulitis : Clozaril, as with other Antipsychotic medications, ?can affect liver, kidney, hyperglycemia, electrolytes which warrants monitoring.?However, Clozaril can also cause agranulocytosis, leukopenia and neutropenia. ?Currently patient has a severe cellulitis and has been refusing vitals and antibiotics.? Patient is on clozapine to treat severe paranoid delusions which directly impair his ability to understand and make judgments about his physical health. ?Stopping the titration of clozapine risks worsening his paranoid delusions.? Conversely, given the potential risks of clozapine it is imperative to know the extent of this infection and whether it is becoming systemic so as to know how to manage clozapine dosing and if it needs to be temporarily discontinued.?For this reason, will expand lab work ordered to include measuring parameters of infection. ?Renderer discussed this with Dr. Mraie, medical records auditor of the psychiatric unit who fully agrees with this plan. MRI IMPRESSION 08/26: 1. Findings suspicious for osteomyelitis of the 1st distal phalanx, most prominent at the tuft. 2. Probable shallow soft tissue ulcers at the dorsal aspect of the great toe and plantar/medial aspect of the distal great toe with underlying cellulitis. No abscess. 3. Mild marrow edema at the proximal aspect of the 2nd and 5th metatarsals is likely degenerative or stress related. 08/27 remains psychotic, disorganized -patient not septic, WBC, ANC WNL; can continue Clozaril titration However patient did take antibiotics today without too much problem. Renderer discussed MRI results with patient and likelihood of osteomyelitis; he does not want IV antibiotics but agrees to take extended p.o. antibiotics. Renderer discussed case, MRI, labs with Dr. Whalen who at this time feels that while IV antibiotics are preferable and have increased chance of treating osteomyelitis, there is no guarantee that IV antibiotics would be curative; at this point she recommends continuing current p.o. antibiotics and extending Bactrim trial to 1 month 08/28 pt stating he will take the antibiotics continue current treatmetn plan 08/31 appreciate recs from ID continue titration of Clozapine as tolerated PLAN: Section 8/ involuntary commitment and substituted judgment ordered Q 15 minute checks Left toe osteomyelitis/(cellulitis resolved): Options are removal affected bone toe (patient doesnt want this) iV antibiotic suppressiv ( 6 weeks ,70% no cure) Po suppression ( may help and patient will accept this (Po Augmentin for two weeks and po Bactrim DS bid for 4 weeks and then maybe one Bactrim DS every ,, Thursday indefinitely Schizophrenia: Increase to Clozapine OdT 75 mg qhs.; (* COURT ORDERED; cannot refuse.. Give IM ziprasidone if refuses p.o.) -was transiently a little confused during previous titration; will retitrate more slowly Continue Clonazepam 1mg to bid; continue Gabapentin 600 mg t.i.d Methadone 85 mg daily ANC 3.3 (08/20) ANC 6800 Lft's mild-moderately elevated, likely due to Ziprasidone Medication options per court ordered substituted judgment: Clozapine Ziprasidone not effective even at therapeutic doses Thorazine Fluphenazine Perphenazine Zyprexa Past med trials: Zyprexa: not effective Seroquel sedation Haldol: dystonic reaction/tongue swelling, Risperdal: emotional numbing. Patient educated on: diagnosis Informed Consent: does not understand Reason for continued inpatient stay Substantial Risk for: inability to function Time Spent With Patient Time: Total time managing care of this patient today ____ minutes.
[2023-09-01] MEDS: cloZAPine ODT 25 MG TAB.RAPDIS 75 MG PO (20:50)
[2023-09-01] MEDS: Melatonin 3 MG TABLET PO (20:50)
[2023-09-02] MEDS: clonazePAM 0.5 MG TABLET PO ×2 (07:04→10:29)
[2023-09-02] MEDS: Nicotine Polacrilex 2 MG GUM 4 MG BUCCAL ×5 (07:04→18:01)
[2023-09-02] MEDS: methADONE HCl 20 MG/2 ML ORAL.CONC 85 MG PO (08:07)
[2023-09-02] MEDS: clonazePAM 1 MG TABLET PO ×2 (08:08→20:11)
[2023-09-02] MEDS: Gabapentin 300 MG CAPSULE 600 MG PO ×3 (08:08→20:13)
[2023-09-02] MEDS: Sulfamethox/Trimeth 800/160 TABLET 1 TAB PO ×2 (09:24→20:13)
[2023-09-02 09:53] VITALS: RESP 18; TEMP 36.1
[2023-09-02] MEDS: Nicotine Polacrilex 2 MG GUM BUCCAL (10:29)
[2023-09-02 11:18] LABS: Neutrophils Absolute Auto 2.9 x10*3/uL (2.0-8.3); WBCANC 5.4 X10*3/uL
--- NOTE | 2023-09-02 16:35 | P.PNPSI_ITS ---
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 ?Patient?still?feels Persecuted?by they and?or?FRED...??He?says?he?does?not?feel?it?is?quite?as?bad?as?when?he?1st?was?ad mitted. However,later on?he?accused?a?nurse?that?she?was?part?of?the?FRED?and?would?not?let?her?examine ?his?foot w ound.??Also?he?made?a?sexually?inappropriate?remark?to?her,?talking?about?a?medi cation?squirting...and said to her I like it when roman in my mouth, like tits and penis... 08/13 No?change?in?presentation;?discussed?with?patient?change?of?med?and?the?need?for ?labs?but?he?refused. A NC?lab?necessary?to?start?clozapine?falls?into?court?order.??Patient?needed?staf f/security?to?hold?him for?blood?draw and pt very upset about it. Regarding?medication?decisions:??Will?switch?patient?to?clozapine P atient?has?had?numerous?hospitalizations?this?past?year,?either?with?little?bene fit?from?medications?or?quickly?discontinuing?them On?discharge?And?again?becoming?psychotic?and?unsafe. Even?at?nearly?max?doses?of?ziprasidone (or zyprex),?patient?has?remained?with?significantly?and?life?impairing?psychosis. Patient's?suicidality?has?lessened?and?he's?future?oriented (though with?completely?unrealistic?goals), However, he remains psychotic, with paranoid?delusions,?internally?preoccupied,no?insight,?disorganized in speech and behavior,?sexual inapropriate,talking?to?himself,?disheveled?and?isolative. Due to parnoia, he's not letting staff address his foot wound which needs to be attended to daily. He?is?taking?medication?only?because?it?is?court?ordered and monitored. Though?slightly?improved,?were?he?to?discharge,?he?still could not?function?on?his?own?in?the?community; he has no insight, has repeatedly tried to avoid taking medications and there?is?no?reason?to?expect?he would?remain adherent. He would quickly?decompensate, become suicidal. ?Discussed?at?length?with?team.??Patient?very?much?does?not?want?blood?draws,?ho wever C lozapine?remains?the?most?likely?effective?medication?available?and?patient's?be st?chance?at?gaining?insight?into?his?illness?and Progressing?him?towards?being?able?to?function?in?the?community. -Clozapine least likely to cause dystonic reaction which he had from Haldol, making other 1st generation antipsychotics less optimal -plan to change meds discussed with patient who was unable to appreciate reasoning, his illness and limits in functioning. 08/15/23: Continue current regimen and plans 08/16/2023: Continue current regimen and plans. Zyprexa in reaction to Clozaril refusal changed to Zyprexa Zydis 10 mg b.i.d. p.r.n. 08/17 Patient says he has no longer sedated and that was only because of Zyprexa and as asking for clonazepam to be returned and gabapentin increase back to former dose.. Family Worker agreed saying it was just held out of concern. Patient took Clozaril today and said he would continue to do so. Otherwise remains with same presentation, paranoid delusions, disorganized behavior 08/18 change clozapine to q.h.s. since patient complains of daytime sedation -refuses to let would nurse or anyone treat feet 08/19 continue current treatment plan; will leave clozapine at current dose for tonight but then continue titration 08/20 allowed blood draw; little more lighthearted and joked with automobile and property underwriter 08/21 same presentation. Patient says he isn't really having voices anymore however it is very difficult to tell if patient is just saying what he knows staff is looking to hear. Behaviors remain disorganized, constant pacing, poor insight, will not let anyone address foot wound 08/22 patient is more sedated this morning. It is difficult to tell the cause of it. Is it because he continues to refuse to sleep and instead paces the hills and has been doing so for weeks? Is it because clonazepam was increased? Or is it because clozapine was titrated to quickly for him? Staff felt he was a little more confused this morning though this did seem to resolve. Because of this automobile and property underwriter is lowering dose of Clozaril back to 25 mg and will titrate more slowly. Did not get a clonazepam level since patient gets traumatized with blood draws and if level supratherapeutic, this should be resolved by lowering dose. Will get level next time draw ANC. If patient remains too sedated, will again lower clonazepam dose in the morning 08/23 continue tx plan, with clozapine lowered to 25mg for now 08/24 no longer sedated; irritable; limited insight. Denying SI or AH and saying he feels better on the new medication. Still however with disorganized behaviors and refusing to let his feet be examined/treated; discussed refusal as relevant to his state of mind, that if thinking clearly would want tx to avoid infection and its consequences 08/25 Patient remains psychotic and difficult with which to engage. Continues to walk up and down the hills nonstop, talking to himself, making odd hand gestures. When asked about psychiatric/psychotic symptoms he denies them however there is no improvement in his behavior at all which remains disorganized. Intermittently incontinent of urine; although Clozaril can cause nocturnal enuresis, that patient becomes overly tired since he consistently it seems more likely that this incontinence is due to patient becoming excessively tired as he consistently refuses to let himself sleep in order to pace the halls. Will continue to titrate Clozaril. Although he verbally says he is doing better, denying voices or worried about persecution, his behaviors remain disorganized; his insight and judgment remain severely impaired as revealed by his refusal to have wound care, nursing examine or treat his feet even though he has been repeatedly educated on the serious risk of refusing treatment, including the possibility of eventual amputation. Patient clearly enjoys walking and he wants his feet to heal (having told automobile and property underwriter so several times, but adding he does not trust proposed tx, thinking they'll make his foot worse...and saying he thinks they are getting better) and if patient were organized in his thinking or free from paranoid delusions,, he would want and except treatment. -Patient has thus far been refusing to let wound nurse or any nurse examine or treat his feet. Today however he allowed nursing, wound nurse and automobile and property underwriter to assess which revealed concerning cellulitis of left lower extremity. He did allow wound nurse to bathe his feet but would not allow any additional treatment or bandaging with appropriate material. -Hospitalist consult placed to further assess and start antibiotics. 08/26 Patient refused antibiotics today. However, after infectious disease physician, Dr. Whalen came to examine patient, he did agree to getting an MRI, taking antibiotics and getting lab work done, including expanded lab work to assess infection... He asked for additional clonazepam for anxiety for these interventions to which automobile and property underwriter agreed. Otherwise same presentation Hospitalist PA note from 08/25 Venous duplex negative for DVT, but shows significantly enlarged abnormal inguinal nodes, likely infectious/inflammatory. Unfortunately, the patient is refusing labs and vital signs to help assess the severity of the extensive cellulitis of nearly 40-50% LLE. XR does appear negative for osteomyelitis, thought would still recommend assessing ESR/CRP. Will consult ID for further input. -briefly talked to radiologist who said from Xray that 2nd metatarsal tip has a cyber fracture osvaldo to avascular necrosis Regarding blood work in context of being on Clozapine with LLE Cellulitis : Clozaril, as with other Antipsychotic medications, ?can affect liver, kidney, hyperglycemia, electrolytes which warrants monitoring.?However, Clozaril can also cause agranulocytosis, leukopenia and neutropenia. ?Currently patient has a severe cellulitis and has been refusing vitals and antibiotics.? Patient is on clozapine to treat severe paranoid delusions which directly impair his ability to understand and make judgments about his physical health. ?Stopping the titration of clozapine risks worsening his paranoid delusions.? Conversely, given the potential risks of clozapine it is imperative to know the extent of this infection and whether it is becoming systemic so as to know how to manage clozapine dosing and if it needs to be temporarily discontinued.?For this reason, will expand lab work ordered to include measuring parameters of infection. ?Family Worker discussed this with Dr. Marie, medical records receptionist of the psychiatric unit who fully agrees with this plan. 08/27 remains psychotic, disorganized -patient not septic, WBC, ANC WNL; can continue Clozaril titration However patient did take antibiotics today without too much problem. Family Worker discussed MRI results with patient and likelihood of osteomyelitis; he does not want IV antibiotics but agrees to take extended p.o. antibiotics. Family Worker discussed case, MRI, labs with Dr. Whalen who at this time feels that while IV antibiotics are preferable and have increased chance of treating osteomyelitis, there is no guarantee that IV antibiotics would be curative; at this point she recommends continuing current p.o. antibiotics and extending Bactrim trial to 1 month 08/28 pt stating he will take the antibiotics continue current treatmetn plan 08/31 appreciate recs from ID continue titration of Clozapine as tolerated 09/02 continue treatment plan; will leave clozapine at 75 mg for now so as not to titrate to quickly and over-sedated ANC wnl PLAN: Section 8/8b involuntary commitment and substituted judgment ordered Q 15 minute checks Schizophrenia: Continue Clozapine OdT 75 mg qhs.; (* COURT ORDERED; cannot refuse.. Give IM ziprasidone if refuses p.o.) -was transiently a little confused during previous titration; will retitrate more slowly Left toe osteomyelitis/(cellulitis resolved): Options are removal affected bone toe (patient doesnt want this) iV antibiotic suppressiv ( 6 weeks ,70% no cure) Po suppression ( may help and patient will accept this (Po Augmentin for two weeks and po Bactrim DS bid for 4 weeks and then maybe one Bactrim DS every ,, Thursday indefinitely MRI IMPRESSION 08/26: 1. Findings suspicious for osteomyelitis of the 1st distal phalanx, most prominent at the tuft. 2. Probable shallow soft tissue ulcers at the dorsal aspect of the great toe and plantar/medial aspect of the distal great toe with underlying cellulitis. No abscess. 3. Mild marrow edema at the proximal aspect of the 2nd and 5th metatarsals is likely degenerative or stress related. Otherwise: Continue Clonazepam 1mg to bid; continue Gabapentin 600 mg t.i.d Methadone 85 mg daily ANC 3.3 (08/20) ANC 6800 Lft's mild-moderately elevated, likely due to Ziprasidone Medication options per court ordered substituted judgment: Clozapine Ziprasidone not effective even at therapeutic doses Thorazine Fluphenazine Perphenazine Zyprexa Past med trials: Zyprexa: not effective Seroquel sedation Haldol: dystonic reaction/tongue swelling, Risperdal: emotional numbing. Patient educated on: diagnosis and medication risk/benefits Informed Consent: understands, does not understand and further education needed Reason for continued inpatient stay Substantial Risk for: inability to function Time Spent With Patient Time: Total time managing care of this patient today ____ minutes.
[2023-09-02 18:00] VITALS: BP 110/65; PULSE 102; TEMP 36.6; O2SAT 96
[2023-09-02] MEDS: cloZAPine ODT 25 MG TAB.RAPDIS 75 MG PO (20:11)
[2023-09-03] MEDS: Nicotine Polacrilex 2 MG GUM 4 MG BUCCAL ×4 (02:04→19:17)
[2023-09-03 06:00] VITALS: RESP 18
[2023-09-03] MEDS: clonazePAM 0.5 MG TABLET PO (06:33)
[2023-09-03 07:00] VITALS: BMI 24.9
[2023-09-03] MEDS: methADONE HCl 20 MG/2 ML ORAL.CONC 85 MG PO (08:04)
[2023-09-03] MEDS: clonazePAM 1 MG TABLET PO ×2 (08:04→19:25)
[2023-09-03] MEDS: Nicotine Polacrilex 2 MG GUM BUCCAL (08:04)
[2023-09-03] MEDS: Gabapentin 300 MG CAPSULE 600 MG PO ×3 (08:04→21:30)
[2023-09-03] MEDS: Sulfamethox/Trimeth 800/160 TABLET 1 TAB PO ×2 (09:20→21:30)
[2023-09-03] MEDS: cloZAPine ODT 25 MG TAB.RAPDIS 75 MG PO (21:29)
[2023-09-03] MEDS: Melatonin 3 MG TABLET PO (21:30)
--- NOTE | 2023-09-03 22:05 | P.PNPSI_ITS ---
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 and?or?FRED...??He?says?he?does?not?feel?it?is?quite?as?bad?as?when?he?1st?was?ad mitted. However,later on?he?accused?a?nurse?that?she?was?part?of?the?FRED?and?would?not?let?her?examine ?his?foot w ound.??Also?he?made?a?sexually?inappropriate?remark?to?her,?talking?about?a?medi cation?squirting...and said to her I like it when roman in my mouth, like tits and penis... 08/13 No?change?in?presentation;?discussed?with?patient?change?of?med?and?the?need?for ?labs?but?he?refused. A [facility]?lab?necessary?to?start?clozapine?falls?into?court?order.??Patient?needed?staf f/security?to?hold?him for?blood?draw and pt very upset about it. Regarding?medication?decisions:??Will?switch?patient?to?clozapine P atient?has?had?numerous?hospitalizations?this?past?year,?either?with?little?bene fit?from?medications?or?quickly?discontinuing?them On?discharge?And?again?becoming?psychotic?and?unsafe. Even?at?nearly?max?doses?of?ziprasidone (or zyprex),?patient?has?remained?with?significantly?and?life?impairing?psychosis. Patient's?suicidality?has?lessened?and?he's?future?oriented (though with?completely?unrealistic?goals), However, he remains psychotic, with paranoid?delusions,?internally?preoccupied,no?insight,?disorganized in speech and behavior,?sexual inapropriate,talking?to?himself,?disheveled?and?isolative. Due to parnoia, he's not letting staff address his foot wound which needs to be attended to daily. He?is?taking?medication?only?because?it?is?court?ordered and monitored. Though?slightly?improved,?were?he?to?discharge,?he?still could not?function?on?his?own?in?the?community; he has no insight, has repeatedly tried to avoid taking medications and there?is?no?reason?to?expect?he would?remain adherent. He would quickly?decompensate, become suicidal. ?Discussed?at?length?with?team.??Patient?very?much?does?not?want?blood?draws,?ho wever C lozapine?remains?the?most?likely?effective?medication?available?and?patient's?be st?chance?at?gaining?insight?into?his?illness?and Progressing?him?towards?being?able?to?function?in?the?community. -Clozapine least likely to cause dystonic reaction which he had from Haldol, making other 1st generation antipsychotics less optimal -plan to change meds discussed with patient who was unable to appreciate reasoning, his illness and limits in functioning. 08/15/23: Continue current regimen and plans 08/16/2023: Continue current regimen and plans. Zyprexa in reaction to Clozaril refusal changed to Zyprexa Zydis 10 mg b.i.d. p.r.n. 08/17 Patient says he has no longer sedated and that was only because of Zyprexa and as asking for clonazepam to be returned and gabapentin increase back to former dose.. Acid Supervisor agreed saying it was just held out of concern. Patient took Clozaril today and said he would continue to do so. Otherwise remains with same presentation, paranoid delusions, disorganized behavior 08/18 change clozapine to q.h.s. since patient complains of daytime sedation -refuses to let would nurse or anyone treat feet 08/19 continue current treatment plan; will leave clozapine at current dose for tonight but then continue titration 08/20 allowed blood draw; little more lighthearted and joked with senior medical writer 08/21 same presentation. Patient says he isn't really having voices anymore however it is very difficult to tell if patient is just saying what he knows staff is looking to hear. Behaviors remain disorganized, constant pacing, poor insight, will not let anyone address foot wound 08/22 patient is more sedated this morning. It is difficult to tell the cause of it. Is it because he continues to refuse to sleep and instead paces the hills and has been doing so for weeks? Is it because clonazepam was increased? Or is it because clozapine was titrated to quickly for him? Staff felt he was a little more confused this morning though this did seem to resolve. Because of this senior medical writer is lowering dose of Clozaril back to 25 mg and will titrate more slowly. Did not get a clonazepam level since patient gets traumatized with blood draws and if level supratherapeutic, this should be resolved by lowering dose. Will get level next time draw ANC. If patient remains too sedated, will again lower clonazepam dose in the morning 08/23 continue tx plan, with clozapine lowered to 25mg for now 08/24 no longer sedated; irritable; limited insight. Denying SI or AH and saying he feels better on the new medication. Still however with disorganized behaviors and refusing to let his feet be examined/treated; discussed refusal as relevant to his state of mind, that if thinking clearly would want tx to avoid infection and its consequences 08/25 Patient remains psychotic and difficult with which to engage. Continues to walk up and down the hills nonstop, talking to himself, making odd hand gestures. When asked about psychiatric/psychotic symptoms he denies them however there is no improvement in his behavior at all which remains disorganized. Intermittently incontinent of urine; although Clozaril can cause nocturnal enuresis, that patient becomes overly tired since he consistently it seems more likely that this incontinence is due to patient becoming excessively tired as he consistently refuses to let himself sleep in order to pace the halls. Will continue to titrate Clozaril. Although he verbally says he is doing better, denying voices or worried about persecution, his behaviors remain disorganized; his insight and judgment remain severely impaired as revealed by his refusal to have wound care, nursing examine or treat his feet even though he has been repeatedly educated on the serious risk of refusing treatment, including the possibility of eventual amputation. Patient clearly enjoys walking and he wants his feet to heal (having told senior medical writer so several times, but adding he does not trust proposed tx, thinking they'll make his foot worse...and saying he thinks they are getting better) and if patient were organized in his thinking or free from paranoid delusions,, he would want and except treatment. -Patient has thus far been refusing to let wound nurse or any nurse examine or treat his feet. Today however he allowed nursing, wound nurse and senior medical writer to assess which revealed concerning cellulitis of left lower extremity. He did allow wound nurse to bathe his feet but would not allow any additional treatment or bandaging with appropriate material. -Hospitalist consult placed to further assess and start antibiotics. 08/26 Patient refused antibiotics today. However, after infectious disease physician, Dr. Whalen came to examine patient, he did agree to getting an MRI, taking antibiotics and getting lab work done, including expanded lab work to assess infection... He asked for additional clonazepam for anxiety for these interventions to which senior medical writer agreed. Otherwise same presentation Hospitalist PA note from 08/25 Venous duplex negative for DVT, but shows significantly enlarged abnormal inguinal nodes, likely infectious/inflammatory. Unfortunately, the patient is refusing labs and vital signs to help assess the severity of the extensive cellulitis of nearly 40-50% LLE. XR does appear negative for osteomyelitis, thought would still recommend assessing ESR/CRP. Will consult ID for further input. -briefly talked to radiologist who said from Xray that 2nd metatarsal tip has a cyber fracture osvaldo to avascular necrosis Regarding blood work in context of being on Clozapine with LLE Cellulitis : Clozaril, as with other Antipsychotic medications, ?can affect liver, kidney, hyperglycemia, electrolytes which warrants monitoring.?However, Clozaril can also cause agranulocytosis, leukopenia and neutropenia. ?Currently patient has a severe cellulitis and has been refusing vitals and antibiotics.? Patient is on clozapine to treat severe paranoid delusions which directly impair his ability to understand and make judgments about his physical health. ?Stopping the titration of clozapine risks worsening his paranoid delusions.? Conversely, given the potential risks of clozapine it is imperative to know the extent of this infection and whether it is becoming systemic so as to know how to manage clozapine dosing and if it needs to be temporarily discontinued.?For this reason, will expand lab work ordered to include measuring parameters of infection. ?Acid Supervisor discussed this with Dr. Marie, medical resident of the psychiatric unit who fully agrees with this plan. 08/27 remains psychotic, disorganized -patient not septic, WBC, ANC WNL; can continue Clozaril titration However patient did take antibiotics today without too much problem. Acid Supervisor discussed MRI results with patient and likelihood of osteomyelitis; he does not want IV antibiotics but agrees to take extended p.o. antibiotics. Acid Supervisor discussed case, MRI, labs with Dr. Whalen who at this time feels that while IV antibiotics are preferable and have increased chance of treating osteomyelitis, there is no guarantee that IV antibiotics would be curative; at this point she recommends continuing current p.o. antibiotics and extending Bactrim trial to 1 month 08/28 pt stating he will take the antibiotics continue current treatmetn plan 08/31 appreciate recs from ID continue titration of Clozapine as tolerated 09/02 continue treatment plan; will leave clozapine at 75 mg for now so as not to titrate to quickly and over-sedated ANC wnl; foot looking better 09/03 continue treatment plan; will increase clozapine by 12.5mg on thursday night; pt agrees foot is a little better, says less painful and will continue taking abx PLAN: Section 8/8b involuntary commitment and substituted judgment ordered Q 15 minute checks Schizophrenia: Add Clozapine 12.5mg qhs (start on 09/04) Continue Clozapine OdT 75 mg qhs.; (* COURT ORDERED; cannot refuse.. Give IM ziprasidone if refuses p.o.) -was transiently a little confused during previous titration; will retitrate more slowly Left toe osteomyelitis/(cellulitis resolved): Options are removal affected bone toe (patient doesnt want this) iV antibiotic suppressiv ( 6 weeks ,70% no cure) Po suppression ( may help and patient will accept this (Po Augmentin for two weeks and po Bactrim DS bid for 4 weeks and then maybe one Bactrim DS every ,, Thursday indefinitely MRI IMPRESSION 08/26: 1. Findings suspicious for osteomyelitis of the 1st distal phalanx, most prominent at the tuft. 2. Probable shallow soft tissue ulcers at the dorsal aspect of the great toe and plantar/medial aspect of the distal great toe with underlying cellulitis. No abscess. 3. Mild marrow edema at the proximal aspect of the 2nd and 5th metatarsals is likely degenerative or stress related. Otherwise: Continue Clonazepam 1mg to bid; continue Gabapentin 600 mg t.i.d Methadone 85 mg daily ANC 3.3 (08/20) ANC 6800 Lft's mild-moderately elevated, likely due to Ziprasidone Medication options per court ordered substituted judgment: Clozapine Ziprasidone not effective even at therapeutic doses Thorazine Fluphenazine Perphenazine Zyprexa Past med trials: Zyprexa: not effective Seroquel sedation Haldol: dystonic reaction/tongue swelling, Risperdal: emotional numbing. Patient educated on: diagnosis, medication risk/benefits and medical condition Informed Consent: understands, does not understand and further education needed Reason for continued inpatient stay Substantial Risk for: inability to function Time Spent With Patient Time: Total time managing care of this patient today ____ minutes.
[2023-09-04 06:00] VITALS: RESP 18
[2023-09-04] MEDS: clonazePAM 1 MG TABLET PO ×2 (09:40→20:59)
[2023-09-04] MEDS: Gabapentin 300 MG CAPSULE 600 MG PO ×3 (09:40→22:12)
[2023-09-04] MEDS: methADONE HCl 20 MG/2 ML ORAL.CONC 85 MG PO (09:40)
[2023-09-04] MEDS: Nicotine Polacrilex 2 MG GUM 4 MG BUCCAL ×3 (09:42→20:59)
[2023-09-04] MEDS: Sulfamethox/Trimeth 800/160 TABLET 1 TAB PO ×2 (12:17→22:12)
--- NOTE | 2023-09-04 14:41 | HO.PSYCHPN ---
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 wound nurse to assess left foot 08/06 Last night, Patient again tried to deceive nursing and pretend that he took medication when he did not. After patient challenged on this he did in fact swallow his medication. This morning he submitted to rigorous mouth checks and nursing believes that he did indeed ingest his medication. Patient remains without any insight, floridly psychotic, nonstop talking to himself and pacing the hallways; disorganized behavior -not sure if patient is the same, worse or better which means he is likely not much different. Again discussed with nursing whether not to start with ziprasidone IM for a few days; will continue to hold off for now but strongly considering this as it is essential to know if this medication can be effective verses needing to again switch medications. 08/07 no change in presentation dry skin vs possible rash on b/l ankle; given benadryl for itchiness; will try lotion and monitor will get EKG and consider increasing Ziprasidone as no appreciable improvment/reduction of symptoms 08/10 says he's better, not feeling persecuted, but behaviors remain the same, internally preoccupied, pacing non-stop, self-dialoguing, isolative...concern is that nothing has really changed other than patient disclosing less qtc wnl. 08/12 today, SW and pattern chart writer met with patient. ?He?shared?about?some?plans?he?has?once?discharged,?which? 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 ?Patient?still?feels Persecuted?by they and?or?FRED...??He?says?he?does?not?feel?it?is?quite?as?bad?as?when?he?1st?was?admitted. However,later on?he?accused?a?nurse?that?she?was?part?of?the?FRED?and?would?not?let?her?examine?his?foot wound.??Also?he?made?a?sexually?inappropriate?remark?to?her,?talking?about?a?medication?squirting...and said to her I like it when roman in my mouth, like tits and penis... 08/13 No?change?in?presentation;?discussed?with?patient?change?of?med?and?the?need?for?labs?but?he?refused. ANC?lab?necessary?to?start?clozapine?falls?into?court?order.??Patient?needed?staff/security?to?hold?him for?blood?draw and pt very upset about it. Regarding?medication?decisions:??Will?switch?patient?to?clozapine Patient?has?had?numerous?hospitalizations?this?past?year,?either?with?little?benefit?from?medications?or?quickly?discontinuing?them On?discharge?And?again?becoming?psychotic?and?unsafe. Even?at?nearly?max?doses?of?ziprasidone (or zyprex),?patient?has?remained?with?significantly?and?life?impairing?psychosis. Patient's?suicidality?has?lessened?and?he's?future?oriented (though with?completely?unrealistic?goals), However, he remains psychotic, with paranoid?delusions,?internally?preoccupied,no?insight,?disorganized in speech and behavior,?sexual inapropriate,talking?to?himself,?disheveled?and?isolative. Due to parnoia, he's not letting staff address his foot wound which needs to be attended to daily. He?is?taking?medication?only?because?it?is?court?ordered and monitored. Though?slightly?improved,?were?he?to?discharge,?he?still could not?function?on?his?own?in?the?community; he has no insight, has repeatedly tried to avoid taking medications and there?is?no?reason?to?expect?he would?remain adherent. He would quickly?decompensate, become suicidal. ?Discussed?at?length?with?team.??Patient?very?much?does?not?want?blood?draws,?however Clozapine?remains?the?most?likely?effective?medication?available?and?patient's?best?chance?at?gaining?insight?into?his?illness?and Progressing?him?towards?being?able?to?function?in?the?community. -Clozapine least likely to cause dystonic reaction which he had from Haldol, making other 1st generation antipsychotics less optimal -plan to change meds discussed with patient who was unable to appreciate reasoning, his illness and limits in functioning. 08/15/23: Continue current regimen and plans 08/16/2023: Continue current regimen and plans. Zyprexa in reaction to Clozaril refusal changed to Zyprexa Zydis 10 mg b.i.d. p.r.n. 08/17 Patient says he has no longer sedated and that was only because of Zyprexa and as asking for clonazepam to be returned and gabapentin increase back to former dose.. Barking Machine Feeder agreed saying it was just held out of concern. Patient took Clozaril today and said he would continue to do so. Otherwise remains with same presentation, paranoid delusions, disorganized behavior 08/18 change clozapine to q.h.s. since patient complains of daytime sedation -refuses to let would nurse or anyone treat feet 08/19 continue current treatment plan; will leave clozapine at current dose for tonight but then continue titration 08/20 allowed blood draw; little more lighthearted and joked with pattern chart writer 08/21 same presentation. Patient says he isn't really having voices anymore however it is very difficult to tell if patient is just saying what he knows staff is looking to hear. Behaviors remain disorganized, constant pacing, poor insight, will not let anyone address foot wound 08/22 patient is more sedated this morning. It is difficult to tell the cause of it. Is it because he continues to refuse to sleep and instead paces the hills and has been doing so for weeks? Is it because clonazepam was increased? Or is it because clozapine was titrated to quickly for him? Staff felt he was a little more confused this morning though this did seem to resolve. Because of this pattern chart writer is lowering dose of Clozaril back to 25 mg and will titrate more slowly. Did not get a clonazepam level since patient gets traumatized with blood draws and if level supratherapeutic, this should be resolved by lowering dose. Will get level next time draw ANC. If patient remains too sedated, will again lower clonazepam dose in the morning 08/23 continue tx plan, with clozapine lowered to 25mg for now 08/24 no longer sedated; irritable; limited insight. Denying SI or AH and saying he feels better on the new medication. Still however with disorganized behaviors and refusing to let his feet be examined/treated; discussed refusal as relevant to his state of mind, that if thinking clearly would want tx to avoid infection and its consequences 08/25 Patient remains psychotic and difficult with which to engage. Continues to walk up and down the hills nonstop, talking to himself, making odd hand gestures. When asked about psychiatric/psychotic symptoms he denies them however there is no improvement in his behavior at all which remains disorganized. Intermittently incontinent of urine; although Clozaril can cause nocturnal enuresis, that patient becomes overly tired since he consistently it seems more likely that this incontinence is due to patient becoming excessively tired as he consistently refuses to let himself sleep in order to pace the halls. Will continue to titrate Clozaril. Although he verbally says he is doing better, denying voices or worried about persecution, his behaviors remain disorganized; his insight and judgment remain severely impaired as revealed by his refusal to have wound care, nursing examine or treat his feet even though he has been repeatedly educated on the serious risk of refusing treatment, including the possibility of eventual amputation. Patient clearly enjoys walking and he wants his feet to heal (having told pattern chart writer so several times, but adding he does not trust proposed tx, thinking they'll make his foot worse...and saying he thinks they are getting better) and if patient were organized in his thinking or free from paranoid delusions,, he would want and except treatment. -Patient has thus far been refusing to let wound nurse or any nurse examine or treat his feet. Today however he allowed nursing, wound nurse and pattern chart writer to assess which revealed concerning cellulitis of left lower extremity. He did allow wound nurse to bathe his feet but would not allow any additional treatment or bandaging with appropriate material. -Hospitalist consult placed to further assess and start antibiotics. 08/26 Patient refused antibiotics today. However, after infectious disease physician, Dr. Whalen came to examine patient, he did agree to getting an MRI, taking antibiotics and getting lab work done, including expanded lab work to assess infection... He asked for additional clonazepam for anxiety for these interventions to which pattern chart writer agreed. Otherwise same presentation Hospitalist PA note from 08/25 Venous duplex negative for DVT, but shows significantly enlarged abnormal inguinal nodes, likely infectious/inflammatory. Unfortunately, the patient is refusing labs and vital signs to help assess the severity of the extensive cellulitis of nearly 40-50% LLE. XR does appear negative for osteomyelitis, thought would still recommend assessing ESR/CRP. Will consult ID for further input. -briefly talked to radiologist who said from Xray that 2nd metatarsal tip has a cyber fracture osvaldo to avascular necrosis Regarding blood work in context of being on Clozapine with LLE Cellulitis : Clozaril, as with other Antipsychotic medications, ?can affect liver, kidney, hyperglycemia, electrolytes which warrants monitoring.?However, Clozaril can also cause agranulocytosis, leukopenia and neutropenia. ?Currently patient has a severe cellulitis and has been refusing vitals and antibiotics.? Patient is on clozapine to treat severe paranoid delusions which directly impair his ability to understand and make judgments about his physical health. ?Stopping the titration of clozapine risks worsening his paranoid delusions.? Conversely, given the potential risks of clozapine it is imperative to know the extent of this infection and whether it is becoming systemic so as to know how to manage clozapine dosing and if it needs to be temporarily discontinued.?For this reason, will expand lab work ordered to include measuring parameters of infection. ?Barking Machine Feeder discussed this with Dr. Marie, medical field representative of the psychiatric unit who fully agrees with this plan. 08/27 remains psychotic, disorganized -patient not septic, WBC, ANC WNL; can continue Clozaril titration However patient did take antibiotics today without too much problem. Barking Machine Feeder discussed MRI results with patient and likelihood of osteomyelitis; he does not want IV antibiotics but agrees to take extended p.o. antibiotics. Barking Machine Feeder discussed case, MRI, labs with Dr. Whalen who at this time feels that while IV antibiotics are preferable and have increased chance of treating osteomyelitis, there is no guarantee that IV antibiotics would be curative; at this point she recommends continuing current p.o. antibiotics and extending Bactrim trial to 1 month 08/28 pt stating he will take the antibiotics continue current treatmetn plan 08/31 appreciate recs from ID continue titration of Clozapine as tolerated 09/02 continue treatment plan; will leave clozapine at 75 mg for now so as not to titrate to quickly and over-sedated ANC wnl; foot looking better 09/03 continue treatment plan; will increase clozapine by 12.5mg on thursday night; pt agrees foot is a little better, says less painful and will continue taking abx 09/04/23 continue tx plan PLAN: Section 8/8b involuntary commitment and substituted judgment ordered Q 15 minute checks Schizophrenia: Add Clozapine 12.5mg qhs (start on 09/04) Continue Clozapine OdT 75 mg qhs.; (* COURT ORDERED; cannot refuse.. Give IM ziprasidone if refuses p.o.) -was transiently a little confused during previous titration; will retitrate more slowly Left toe osteomyelitis/(cellulitis resolved): Options are removal affected bone toe (patient doesnt want this) iV antibiotic suppressiv ( 6 weeks ,70% no cure) Po suppression ( may help and patient will accept this (Po Augmentin for two weeks and po Bactrim DS bid for 4 weeks and then maybe one Bactrim DS every ,, Thursday indefinitely MRI IMPRESSION 08/26: 1. Findings suspicious for osteomyelitis of the 1st distal phalanx, most prominent at the tuft. 2. Probable shallow soft tissue ulcers at the dorsal aspect of the great toe and plantar/medial aspect of the distal great toe with underlying cellulitis. No abscess. 3. Mild marrow edema at the proximal aspect of the 2nd and 5th metatarsals is likely degenerative or stress related. Otherwise: Continue Clonazepam 1mg to bid; continue Gabapentin 600 mg t.i.d Methadone 85 mg daily ANC 3.3 (08/20) ANC 6800 Lft's mild-moderately elevated, likely due to Ziprasidone Medication options per court ordered substituted judgment: Clozapine Ziprasidone not effective even at therapeutic doses Thorazine Fluphenazine Perphenazine Zyprexa Past med trials: Zyprexa: not effective Seroquel sedation Haldol: dystonic reaction/tongue swelling, Risperdal: emotional numbing. Reason for continued inpatient stay Substantial Risk for: harm to self, inability to function, rapid decompensation and med/psych decompensation Time Spent With Patient Time: Total time managing care of this patient today ____ minutes.
[2023-09-04 22:04] VITALS: BP 114/70; PULSE 108; RESP 18; TEMP 36.6; O2SAT 96
[2023-09-04] MEDS: cloZAPine 25 MG TABLET 12.5 MG PO (22:12)
[2023-09-04] MEDS: cloZAPine ODT 25 MG TAB.RAPDIS 75 MG PO (22:12)
[2023-09-04] MEDS: Acetaminophen 325 MG TABLET 650 MG PO (22:13)
[2023-09-04] MEDS: Nicotine Polacrilex 2 MG GUM BUCCAL (22:16)
[2023-09-05] MEDS: Nicotine Polacrilex 2 MG GUM 4 MG BUCCAL ×7 (05:05→22:22)
[2023-09-05] MEDS: methADONE HCl 20 MG/2 ML ORAL.CONC 85 MG PO (08:15)
[2023-09-05] MEDS: clonazePAM 1 MG TABLET PO ×2 (08:16→19:32)
[2023-09-05] MEDS: Nicotine Polacrilex 2 MG GUM BUCCAL ×3 (08:16→20:23)
[2023-09-05] MEDS: Gabapentin 300 MG CAPSULE 600 MG PO ×3 (08:16→19:31)
[2023-09-05] MEDS: Sulfamethox/Trimeth 800/160 TABLET 1 TAB PO ×2 (08:16→23:00)
[2023-09-05 08:49] VITALS: RESP 18
--- NOTE | 2023-09-05 10:57 | HO.PSYCHPN ---
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 No?change?in?presentation;?discussed?with?patient?change?of?med?and?the?need?for?labs?but?he?refused. ANC?lab?necessary?to?start?clozapine?falls?into?court?order.??Patient?needed?staff/security?to?hold?him for?blood?draw and pt very upset about it. Regarding?medication?decisions:??Will?switch?patient?to?clozapine Patient?has?had?numerous?hospitalizations?this?past?year,?either?with?little?benefit?from?medications?or?quickly?discontinuing?them On?discharge?And?again?becoming?psychotic?and?unsafe. Even?at?nearly?max?doses?of?ziprasidone (or zyprex),?patient?has?remained?with?significantly?and?life?impairing?psychosis. Patient's?suicidality?has?lessened?and?he's?future?oriented (though with?completely?unrealistic?goals), However, he remains psychotic, with paranoid?delusions,?internally?preoccupied,no?insight,?disorganized in speech and behavior,?sexual inapropriate,talking?to?himself,?disheveled?and?isolative. Due to parnoia, he's not letting staff address his foot wound which needs to be attended to daily. He?is?taking?medication?only?because?it?is?court?ordered and monitored. Though?slightly?improved,?were?he?to?discharge,?he?still could not?function?on?his?own?in?the?community; he has no insight, has repeatedly tried to avoid taking medications and there?is?no?reason?to?expect?he would?remain adherent. He would quickly?decompensate, become suicidal. ?Discussed?at?length?with?team.??Patient?very?much?does?not?want?blood?draws,?however Clozapine?remains?the?most?likely?effective?medication?available?and?patient's?best?chance?at?gaining?insight?into?his?illness?and Progressing?him?towards?being?able?to?function?in?the?community. -Clozapine least likely to cause dystonic reaction which he had from Haldol, making other 1st generation antipsychotics less optimal -plan to change meds discussed with patient who was unable to appreciate reasoning, his illness and limits in functioning. 08/15/23: Continue current regimen and plans 08/16/2023: Continue current regimen and plans. Zyprexa in reaction to Clozaril refusal changed to Zyprexa Zydis 10 mg b.i.d. p.r.n. 08/17 Patient says he has no longer sedated and that was only because of Zyprexa and as asking for clonazepam to be returned and gabapentin increase back to former dose.. Reconciliation Coordinator agreed saying it was just held out of concern. Patient took Clozaril today and said he would continue to do so. Otherwise remains with same presentation, paranoid delusions, disorganized behavior 08/18 change clozapine to q.h.s. since patient complains of daytime sedation -refuses to let would nurse or anyone treat feet 08/19 continue current treatment plan; will leave clozapine at current dose for tonight but then continue titration 08/20 allowed blood draw; little more lighthearted and joked with consumer loan underwriter 08/21 same presentation. Patient says he isn't really having voices anymore however it is very difficult to tell if patient is just saying what he knows staff is looking to hear. Behaviors remain disorganized, constant pacing, poor insight, will not let anyone address foot wound 08/22 patient is more sedated this morning. It is difficult to tell the cause of it. Is it because he continues to refuse to sleep and instead paces the hills and has been doing so for weeks? Is it because clonazepam was increased? Or is it because clozapine was titrated to quickly for him? Staff felt he was a little more confused this morning though this did seem to resolve. Because of this consumer loan underwriter is lowering dose of Clozaril back to 25 mg and will titrate more slowly. Did not get a clonazepam level since patient gets traumatized with blood draws and if level supratherapeutic, this should be resolved by lowering dose. Will get level next time draw ANC. If patient remains too sedated, will again lower clonazepam dose in the morning 08/23 continue tx plan, with clozapine lowered to 25mg for now 08/24 no longer sedated; irritable; limited insight. Denying SI or AH and saying he feels better on the new medication. Still however with disorganized behaviors and refusing to let his feet be examined/treated; discussed refusal as relevant to his state of mind, that if thinking clearly would want tx to avoid infection and its consequences 08/25 Patient remains psychotic and difficult with which to engage. Continues to walk up and down the hills nonstop, talking to himself, making odd hand gestures. When asked about psychiatric/psychotic symptoms he denies them however there is no improvement in his behavior at all which remains disorganized. Intermittently incontinent of urine; although Clozaril can cause nocturnal enuresis, that patient becomes overly tired since he consistently it seems more likely that this incontinence is due to patient becoming excessively tired as he consistently refuses to let himself sleep in order to pace the halls. Will continue to titrate Clozaril. Although he verbally says he is doing better, denying voices or worried about persecution, his behaviors remain disorganized; his insight and judgment remain severely impaired as revealed by his refusal to have wound care, nursing examine or treat his feet even though he has been repeatedly educated on the serious risk of refusing treatment, including the possibility of eventual amputation. Patient clearly enjoys walking and he wants his feet to heal (having told consumer loan underwriter so several times, but adding he does not trust proposed tx, thinking they'll make his foot worse...and saying he thinks they are getting better) and if patient were organized in his thinking or free from paranoid delusions,, he would want and except treatment. -Patient has thus far been refusing to let wound nurse or any nurse examine or treat his feet. Today however he allowed nursing, wound nurse and consumer loan underwriter to assess which revealed concerning cellulitis of left lower extremity. He did allow wound nurse to bathe his feet but would not allow any additional treatment or bandaging with appropriate material. -Hospitalist consult placed to further assess and start antibiotics. 08/26 Patient refused antibiotics today. However, after infectious disease physician, Dr. Whalen came to examine patient, he did agree to getting an MRI, taking antibiotics and getting lab work done, including expanded lab work to assess infection... He asked for additional clonazepam for anxiety for these interventions to which consumer loan underwriter agreed. Otherwise same presentation Hospitalist JERRELL note from 08/25 Venous duplex negative for DVT, but shows significantly enlarged abnormal inguinal nodes, likely infectious/inflammatory. Unfortunately, the patient is refusing labs and vital signs to help assess the severity of the extensive cellulitis of nearly 40-50% LLE. XR does appear negative for osteomyelitis, thought would still recommend assessing ESR/CRP. Will consult ID for further input. -briefly talked to radiologist who said from Xray that 2nd metatarsal tip has a cyber fracture osvaldo to avascular necrosis Regarding blood work in context of being on Clozapine with LLE Cellulitis : Clozaril, as with other Antipsychotic medications, ?can affect liver, kidney, hyperglycemia, electrolytes which warrants monitoring.?However, Clozaril can also cause agranulocytosis, leukopenia and neutropenia. ?Currently patient has a severe cellulitis and has been refusing vitals and antibiotics.? Patient is on clozapine to treat severe paranoid delusions which directly impair his ability to understand and make judgments about his physical health. ?Stopping the titration of clozapine risks worsening his paranoid delusions.? Conversely, given the potential risks of clozapine it is imperative to know the extent of this infection and whether it is becoming systemic so as to know how to manage clozapine dosing and if it needs to be temporarily discontinued.?For this reason, will expand lab work ordered to include measuring parameters of infection. ?Reconciliation Coordinator discussed this with Dr. Marie, medical office technician of the psychiatric unit who fully agrees with this plan. 08/27 remains psychotic, disorganized -patient not septic, WBC, ANC WNL; can continue Clozaril titration However patient did take antibiotics today without too much problem. Reconciliation Coordinator discussed MRI results with patient and likelihood of osteomyelitis; he does not want IV antibiotics but agrees to take extended p.o. antibiotics. Reconciliation Coordinator discussed case, MRI, labs with Dr. Whalen who at this time feels that while IV antibiotics are preferable and have increased chance of treating osteomyelitis, there is no guarantee that IV antibiotics would be curative; at this point she recommends continuing current p.o. antibiotics and extending Bactrim trial to 1 month 08/28 pt stating he will take the antibiotics continue current treatmetn plan 08/31 appreciate recs from ID continue titration of Clozapine as tolerated 09/02 continue treatment plan; will leave clozapine at 75 mg for now so as not to titrate to quickly and over-sedated ANC wnl; foot looking better 09/03 continue treatment plan; will increase clozapine by 12.5mg on thursday night; pt agrees foot is a little better, says less painful and will continue taking abx 09/04/23 continue tx plan 09/05: no changes PLAN: Section 8/ involuntary commitment and substituted judgment ordered Q 15 minute checks Schizophrenia: Add Clozapine 12.5mg qhs (start on 09/04) Continue Clozapine OdT 75 mg qhs.; (* COURT ORDERED; cannot refuse.. Give IM ziprasidone if refuses p.o.) -was transiently a little confused during previous titration; will retitrate more slowly Left toe osteomyelitis/(cellulitis resolved): Options are removal affected bone toe (patient doesnt want this) iV antibiotic suppressiv ( 6 weeks ,70% no cure) Po suppression ( may help and patient will accept this (Po Augmentin for two weeks and po Bactrim DS bid for 4 weeks and then maybe one Bactrim DS every ,, Thursday indefinitely MRI IMPRESSION 08/26: 1. Findings suspicious for osteomyelitis of the 1st distal phalanx, most prominent at the tuft. 2. Probable shallow soft tissue ulcers at the dorsal aspect of the great toe and plantar/medial aspect of the distal great toe with underlying cellulitis. No abscess. 3. Mild marrow edema at the proximal aspect of the 2nd and 5th metatarsals is likely degenerative or stress related. Otherwise: Continue Clonazepam 1mg to bid; continue Gabapentin 600 mg t.i.d Methadone 85 mg daily ANC 3.3 (08/20) ANC 6800 Lft's mild-moderately elevated, likely due to Ziprasidone Medication options per court ordered substituted judgment: Clozapine Ziprasidone not effective even at therapeutic doses Thorazine Fluphenazine Perphenazine Zyprexa Past med trials: Zyprexa: not effective Seroquel sedation Haldol: dystonic reaction/tongue swelling, Risperdal: emotional numbing. Reason for continued inpatient stay Substantial Risk for: inability to function Time Spent With Patient Time: Total time managing care of this patient today ____ minutes.
[2023-09-05] MEDS: clonazePAM 0.5 MG TABLET PO (11:43)
[2023-09-05] MEDS: cloZAPine 25 MG TABLET 12.5 MG PO (23:00)
[2023-09-05] MEDS: cloZAPine ODT 25 MG TAB.RAPDIS 75 MG PO (23:01)
[2023-09-06] MEDS: Nicotine Polacrilex 2 MG GUM BUCCAL ×4 (00:02→20:44)
[2023-09-06 06:00] VITALS: RESP 18
[2023-09-06] MEDS: Sulfamethox/Trimeth 800/160 TABLET 1 TAB PO ×2 (08:16→21:53)
[2023-09-06] MEDS: methADONE HCl 20 MG/2 ML ORAL.CONC 85 MG PO (08:16)
[2023-09-06] MEDS: clonazePAM 1 MG TABLET PO ×2 (08:16→19:50)
[2023-09-06] MEDS: Gabapentin 300 MG CAPSULE 600 MG PO ×3 (08:16→21:53)
[2023-09-06] MEDS: Nicotine Polacrilex 2 MG GUM 4 MG BUCCAL ×4 (08:17→22:13)
--- NOTE | 2023-09-06 12:14 | P.PNPSI_ITS ---
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 for?blood?draw and pt very upset about it. Regarding?medication?decisions:??Will?switch?patient?to?clozapine P atient?has?had?numerous?hospitalizations?this?past?year,?either?with?little?bene fit?from?medications?or?quickly?discontinuing?them On?discharge?And?again?becoming?psychotic?and?unsafe. Even?at?nearly?max?doses?of?ziprasidone (or zyprex),?patient?has?remained?with?significantly?and?life?impairing?psychosis. Patient's?suicidality?has?lessened?and?he's?future?oriented (though with?completely?unrealistic?goals), However, he remains psychotic, with paranoid?delusions,?internally?preoccupied,no?insight,?disorganized in speech and behavior,?sexual inapropriate,talking?to?himself,?disheveled?and?isolative. Due to parnoia, he's not letting staff address his foot wound which needs to be attended to daily. He?is?taking?medication?only?because?it?is?court?ordered and monitored. Though?slightly?improved,?were?he?to?discharge,?he?still could not?function?on?his?own?in?the?community; he has no insight, has repeatedly tried to avoid taking medications and there?is?no?reason?to?expect?he would?remain adherent. He would quickly?decompensate, become suicidal. ?Discussed?at?length?with?team.??Patient?very?much?does?not?want?blood?draws,?[facility] lozapine?remains?the?most?likely?effective?medication?available?and?patient's?be st?chance?at?gaining?insight?into?his?illness?and Progressing?him?towards?being?able?to?function?in?the?community. -Clozapine least likely to cause dystonic reaction which he had from [facility], making other 1st generation antipsychotics less optimal -plan to change meds discussed with patient who was unable to appreciate reasoning, his illness and limits in functioning. 08/15/23: Continue current regimen and plans 08/16/2023: Continue current regimen and plans. Zyprexa in reaction to Clozaril refusal changed to Zyprexa Zydis 10 mg b.i.d. p.r.n. 08/17 Patient says he has no longer sedated and that was only because of Zyprexa and as asking for clonazepam to be returned and gabapentin increase back to former dose.. Route Sales Manager agreed saying it was just held out of concern. Patient took Clozaril today and said he would continue to do so. Otherwise remains with same presentation, paranoid delusions, disorganized behavior 08/18 change clozapine to q.h.s. since patient complains of daytime sedation -refuses to let would nurse or anyone treat feet 08/19 continue current treatment plan; will leave clozapine at current dose for tonight but then continue titration 08/20 allowed blood draw; little more lighthearted and joked with keno writer/runner 08/21 same presentation. Patient says he isn't really having voices anymore however it is very difficult to tell if patient is just saying what he knows staff is looking to hear. Behaviors remain disorganized, constant pacing, poor insight, will not let anyone address foot wound 08/22 patient is more sedated this morning. It is difficult to tell the cause of it. Is it because he continues to refuse to sleep and instead paces the hills and has been doing so for weeks? Is it because clonazepam was increased? Or is it because clozapine was titrated to quickly for him? Staff felt he was a little more confused this morning though this did seem to resolve. Because of this keno writer/runner is lowering dose of Clozaril back to 25 mg and will titrate more slowly. Did not get a clonazepam level since patient gets traumatized with blood draws and if level supratherapeutic, this should be resolved by lowering dose. Will get level next time draw ANC. If patient remains too sedated, will again lower clonazepam dose in the morning 08/23 continue tx plan, with clozapine lowered to 25mg for now 08/24 no longer sedated; irritable; limited insight. Denying SI or AH and saying he feels better on the new medication. Still however with disorganized behaviors and refusing to let his feet be examined/treated; discussed refusal as relevant to his state of mind, that if thinking clearly would want tx to avoid infection and its consequences 08/25 Patient remains psychotic and difficult with which to engage. Continues to walk up and down the hills nonstop, talking to himself, making odd hand gestures. When asked about psychiatric/psychotic symptoms he denies them however there is no improvement in his behavior at all which remains disorganized. Intermittently incontinent of urine; although Clozaril can cause nocturnal enuresis, that patient becomes overly tired since he consistently it seems more likely that this incontinence is due to patient becoming excessively tired as he consistently refuses to let himself sleep in order to pace the halls. Will continue to titrate Clozaril. Although he verbally says he is doing better, denying voices or worried about persecution, his behaviors remain disorganized; his insight and judgment remain severely impaired as revealed by his refusal to have wound care, nursing examine or treat his feet even though he has been repeatedly educated on the serious risk of refusing treatment, including the possibility of eventual amputation. Patient clearly enjoys walking and he wants his feet to heal (having told keno writer/runner so several times, but adding he does not trust proposed tx, thinking they'll make his foot worse...and saying he thinks they are getting better) and if patient were organized in his thinking or free from paranoid delusions,, he would want and except treatment. -Patient has thus far been refusing to let wound nurse or any nurse examine or treat his feet. Today however he allowed nursing, wound nurse and keno writer/runner to assess which revealed concerning cellulitis of left lower extremity. He did allow wound nurse to bathe his feet but would not allow any additional treatment or bandaging with appropriate material. -Hospitalist consult placed to further assess and start antibiotics. 08/26 Patient refused antibiotics today. However, after infectious disease physician, Dr. Whalen came to examine patient, he did agree to getting an MRI, taking antibiotics and getting lab work done, including expanded lab work to assess infection... He asked for additional clonazepam for anxiety for these interventions to which keno writer/runner agreed. Otherwise same presentation Hospitalist JERRELL note from 01/23 Venous duplex negative for DVT, but shows significantly enlarged abnormal inguinal nodes, likely infectious/inflammatory. Unfortunately, the patient is refusing labs and vital signs to help assess the severity of the extensive cellulitis of nearly 40-50% LLE. XR does appear negative for osteomyelitis, thought would still recommend assessing ESR/CRP. Will consult ID for further input. -briefly talked to radiologist who said from Xray that 2nd metatarsal tip has a cyber fracture osvaldo to avascular necrosis Regarding blood work in context of being on Clozapine with LLE Cellulitis : Clozaril, as with other Antipsychotic medications, ?can affect liver, kidney, hyperglycemia, electrolytes which warrants monitoring.?However, Clozaril can also cause agranulocytosis, leukopenia and neutropenia. ?Currently patient has a severe cellulitis and has been refusing vitals and antibiotics.? Patient is on clozapine to treat severe paranoid delusions which directly impair his ability to understand and make judgments about his physical health. ?Stopping the titration of clozapine risks worsening his paranoid delusions.? Conversely, given the potential risks of clozapine it is imperative to know the extent of this infection and whether it is becoming systemic so as to know how to manage clozapine dosing and if it needs to be temporarily discontinued.?For this reason, will expand lab work ordered to include measuring parameters of infection. ?Route Sales Manager discussed this with Dr. Marie, medical assistant cardiology of the psychiatric unit who fully agrees with this plan. 08/27 remains psychotic, disorganized -patient not septic, WBC, ANC WNL; can continue Clozaril titration However patient did take antibiotics today without too much problem. Route Sales Manager discussed MRI results with patient and likelihood of osteomyelitis; he does not want IV antibiotics but agrees to take extended p.o. antibiotics. Route Sales Manager discussed case, MRI, labs with Dr. Whalen who at this time feels that while IV antibiotics are preferable and have increased chance of treating osteomyelitis, there is no guarantee that IV antibiotics would be curative; at this point she recommends continuing current p.o. antibiotics and extending Bactrim trial to 1 month 08/28 pt stating he will take the antibiotics continue current treatmetn plan 08/31 appreciate recs from ID continue titration of Clozapine as tolerated 09/02 continue treatment plan; will leave clozapine at 75 mg for now so as not to titrate to quickly and over-sedated ANC wnl; foot looking better 09/03 continue treatment plan; will increase clozapine by 12.5mg on thursday night; pt agrees foot is a little better, says less painful and will continue taking abx 09/04/23 continue tx plan 09/05: no changes 09/06: no changes PLAN: Section 8/8b involuntary commitment and substituted judgment ordered Q 15 minute checks Schizophrenia: Add Clozapine 12.5mg qhs (start on 09/04) Continue Clozapine OdT 75 mg qhs.; (* COURT ORDERED; cannot refuse.. Give IM ziprasidone if refuses p.o.) -was transiently a little confused during previous titration; will retitrate more slowly Left toe osteomyelitis/(cellulitis resolved): Options are removal affected bone toe (patient doesnt want this) iV antibiotic suppressiv ( 6 weeks ,70% no cure) Po suppression ( may help and patient will accept this (Po Augmentin for two weeks and po Bactrim DS bid for 4 weeks and then maybe one Bactrim DS every ,, Thursday indefinitely MRI IMPRESSION 08/26: 1. Findings suspicious for osteomyelitis of the 1st distal phalanx, most prominent at the tuft. 2. Probable shallow soft tissue ulcers at the dorsal aspect of the great toe and plantar/medial aspect of the distal great toe with underlying cellulitis. No abscess. 3. Mild marrow edema at the proximal aspect of the 2nd and 5th metatarsals is likely degenerative or stress related. Otherwise: Continue Clonazepam 1mg to bid; continue Gabapentin 600 mg t.i.d Methadone 85 mg daily ANC 3.3 (08/20) ANC 6800 Lft's mild-moderately elevated, likely due to Ziprasidone Medication options per court ordered substituted judgment: Clozapine Ziprasidone not effective even at therapeutic doses Thorazine Fluphenazine Perphenazine Zyprexa Past med trials: Zyprexa: not effective Seroquel sedation Haldol: dystonic reaction/tongue swelling, Risperdal: emotional numbing. Reason for continued inpatient stay Substantial Risk for: inability to function Time Spent With Patient Time: Total time managing care of this patient today ____ minutes.
[2023-09-06 18:00] VITALS: RESP 18
[2023-09-06] MEDS: cloZAPine ODT 25 MG TAB.RAPDIS 75 MG PO (21:53)
[2023-09-06] MEDS: Melatonin 3 MG TABLET PO (21:53)
[2023-09-06] MEDS: cloZAPine 25 MG TABLET 12.5 MG PO (21:53)
[2023-09-07 06:00] VITALS: RESP 18; TEMP 36.3
[2023-09-07] MEDS: methADONE HCl 20 MG/2 ML ORAL.CONC 85 MG PO (08:40)
[2023-09-07] MEDS: clonazePAM 1 MG TABLET PO ×2 (08:41→23:13)
[2023-09-07] MEDS: Gabapentin 300 MG CAPSULE 600 MG PO ×3 (08:41→23:12)
[2023-09-07] MEDS: Nicotine Polacrilex 2 MG GUM 4 MG BUCCAL ×5 (08:55→23:17)
--- NOTE | 2023-09-07 10:08 | HO.PSYCHPN ---
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 his medication. This morning he submitted to rigorous mouth checks and nursing believes that he did indeed ingest his medication. Patient remains without any insight, floridly psychotic, nonstop talking to himself and pacing the hallways; disorganized behavior -not sure if patient is the same, worse or better which means he is likely not much different. Again discussed with nursing whether not to start with ziprasidone IM for a few days; will continue to hold off for now but strongly considering this as it is essential to know if this medication can be effective verses needing to again switch medications. 08/07 no change in presentation dry skin vs possible rash on b/l ankle; given benadryl for itchiness; will try lotion and monitor will get EKG and consider increasing Ziprasidone as no appreciable improvment/reduction of symptoms 08/10 says he's better, not feeling persecuted, but behaviors remain the same, internally preoccupied, pacing non-stop, self-dialoguing, isolative...concern is that nothing has really changed other than patient disclosing less qtc wnl. 08/12 today, SW and screenplay writer met with patient. ?He?shared?about?some?plans?he?has?once?discharged,?which? 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 ?Patient?still?feels Persecuted?by they and?or?FRED...??He?says?he?does?not?feel?it?is?quite?as?bad?as?when?he?1st?was?admitted. However,later on?he?accused?a?nurse?that?she?was?part?of?the?[facility]ED?and?would?not?let?her?examine?his?foot wound.??Also?he?made?a?sexually?inappropriate?remark?to?her,?talking?about?a?medication?squirting...and said to her I like it when roman in my mouth, like tits and penis... 08/13 No?change?in?presentation;?discussed?with?patient?change?of?med?and?the?need?for?labs?but?he?refused. ANC?lab?necessary?to?start?clozapine?falls?into?court?order.??Patient?needed?staff/security?to?hold?him for?blood?draw and pt very upset about it. Regarding?medication?decisions:??Will?switch?patient?to?clozapine Patient?has?had?numerous?hospitalizations?this?past?year,?either?with?little?benefit?from?medications?or?quickly?discontinuing?them On?discharge?And?again?becoming?psychotic?and?unsafe. Even?at?nearly?max?doses?of?ziprasidone (or zyprex),?patient?has?remained?with?significantly?and?life?impairing?psychosis. Patient's?suicidality?has?lessened?and?he's?future?oriented (though with?completely?unrealistic?goals), However, he remains psychotic, with paranoid?delusions,?internally?preoccupied,no?insight,?disorganized in speech and behavior,?sexual inapropriate,talking?to?himself,?disheveled?and?isolative. Due to parnoia, he's not letting staff address his foot wound which needs to be attended to daily. He?is?taking?medication?only?because?it?is?court?ordered and monitored. Though?slightly?improved,?were?he?to?discharge,?he?still could not?function?on?his?own?in?the?community; he has no insight, has repeatedly tried to avoid taking medications and there?is?no?reason?to?expect?he would?remain adherent. He would quickly?decompensate, become suicidal. ?Discussed?at?length?with?team.??Patient?very?much?does?not?want?blood?draws,?however Clozapine?remains?the?most?likely?effective?medication?available?and?patient's?best?chance?at?gaining?insight?into?his?illness?and Progressing?him?towards?being?able?to?function?in?the?community. -Clozapine least likely to cause dystonic reaction which he had from Haldol, making other 1st generation antipsychotics less optimal -plan to change meds discussed with patient who was unable to appreciate reasoning, his illness and limits in functioning. 08/15/23: Continue current regimen and plans 08/16/2023: Continue current regimen and plans. Zyprexa in reaction to Clozaril refusal changed to Zyprexa Zydis 10 mg b.i.d. p.r.n. 08/17 Patient says he has no longer sedated and that was only because of Zyprexa and as asking for clonazepam to be returned and gabapentin increase back to former dose.. Venetian Blind Installer agreed saying it was just held out of concern. Patient took Clozaril today and said he would continue to do so. Otherwise remains with same presentation, paranoid delusions, disorganized behavior 08/18 change clozapine to q.h.s. since patient complains of daytime sedation -refuses to let would nurse or anyone treat feet 08/19 continue current treatment plan; will leave clozapine at current dose for tonight but then continue titration 08/20 allowed blood draw; little more lighthearted and joked with screenplay writer 08/21 same presentation. Patient says he isn't really having voices anymore however it is very difficult to tell if patient is just saying what he knows staff is looking to hear. Behaviors remain disorganized, constant pacing, poor insight, will not let anyone address foot wound 08/22 patient is more sedated this morning. It is difficult to tell the cause of it. Is it because he continues to refuse to sleep and instead paces the hills and has been doing so for weeks? Is it because clonazepam was increased? Or is it because clozapine was titrated to quickly for him? Staff felt he was a little more confused this morning though this did seem to resolve. Because of this screenplay writer is lowering dose of Clozaril back to 25 mg and will titrate more slowly. Did not get a clonazepam level since patient gets traumatized with blood draws and if level supratherapeutic, this should be resolved by lowering dose. Will get level next time draw ANC. If patient remains too sedated, will again lower clonazepam dose in the morning 08/23 continue tx plan, with clozapine lowered to 25mg for now 08/24 no longer sedated; irritable; limited insight. Denying SI or AH and saying he feels better on the new medication. Still however with disorganized behaviors and refusing to let his feet be examined/treated; discussed refusal as relevant to his state of mind, that if thinking clearly would want tx to avoid infection and its consequences 08/25 Patient remains psychotic and difficult with which to engage. Continues to walk up and down the hills nonstop, talking to himself, making odd hand gestures. When asked about psychiatric/psychotic symptoms he denies them however there is no improvement in his behavior at all which remains disorganized. Intermittently incontinent of urine; although Clozaril can cause nocturnal enuresis, that patient becomes overly tired since he consistently it seems more likely that this incontinence is due to patient becoming excessively tired as he consistently refuses to let himself sleep in order to pace the halls. Will continue to titrate Clozaril. Although he verbally says he is doing better, denying voices or worried about persecution, his behaviors remain disorganized; his insight and judgment remain severely impaired as revealed by his refusal to have wound care, nursing examine or treat his feet even though he has been repeatedly educated on the serious risk of refusing treatment, including the possibility of eventual amputation. Patient clearly enjoys walking and he wants his feet to heal (having told screenplay writer so several times, but adding he does not trust proposed tx, thinking they'll make his foot worse...and saying he thinks they are getting better) and if patient were organized in his thinking or free from paranoid delusions,, he would want and except treatment. -Patient has thus far been refusing to let wound nurse or any nurse examine or treat his feet. Today however he allowed nursing, wound nurse and screenplay writer to assess which revealed concerning cellulitis of left lower extremity. He did allow wound nurse to bathe his feet but would not allow any additional treatment or bandaging with appropriate material. -Hospitalist consult placed to further assess and start antibiotics. 08/26 Patient refused antibiotics today. However, after infectious disease physician, Dr. Whalen came to examine patient, he did agree to getting an MRI, taking antibiotics and getting lab work done, including expanded lab work to assess infection... He asked for additional clonazepam for anxiety for these interventions to which screenplay writer agreed. Otherwise same presentation Hospitalist JERRELL note from 08/25 Venous duplex negative for DVT, but shows significantly enlarged abnormal inguinal nodes, likely infectious/inflammatory. Unfortunately, the patient is refusing labs and vital signs to help assess the severity of the extensive cellulitis of nearly 40-50% LLE. XR does appear negative for osteomyelitis, thought would still recommend assessing ESR/CRP. Will consult ID for further input. -briefly talked to radiologist who said from Xray that 2nd metatarsal tip has a cyber fracture osvaldo to avascular necrosis Regarding blood work in context of being on Clozapine with LLE Cellulitis : Clozaril, as with other Antipsychotic medications, ?can affect liver, kidney, hyperglycemia, electrolytes which warrants monitoring.?However, Clozaril can also cause agranulocytosis, leukopenia and neutropenia. ?Currently patient has a severe cellulitis and has been refusing vitals and antibiotics.? Patient is on clozapine to treat severe paranoid delusions which directly impair his ability to understand and make judgments about his physical health. ?Stopping the titration of clozapine risks worsening his paranoid delusions.? Conversely, given the potential risks of clozapine it is imperative to know the extent of this infection and whether it is becoming systemic so as to know how to manage clozapine dosing and if it needs to be temporarily discontinued.?For this reason, will expand lab work ordered to include measuring parameters of infection. ?Venetian Blind Installer discussed this with Dr. Marie, director medical safety of the psychiatric unit who fully agrees with this plan. 08/27 remains psychotic, disorganized -patient not septic, WBC, ANC WNL; can continue Clozaril titration However patient did take antibiotics today without too much problem. Venetian Blind Installer discussed MRI results with patient and likelihood of osteomyelitis; he does not want IV antibiotics but agrees to take extended p.o. antibiotics. Venetian Blind Installer discussed case, MRI, labs with Dr. Whalen who at this time feels that while IV antibiotics are preferable and have increased chance of treating osteomyelitis, there is no guarantee that IV antibiotics would be curative; at this point she recommends continuing current p.o. antibiotics and extending Bactrim trial to 1 month 08/28 pt stating he will take the antibiotics continue current treatmetn plan 08/31 appreciate recs from ID continue titration of Clozapine as tolerated 09/02 continue treatment plan; will leave clozapine at 75 mg for now so as not to titrate to quickly and over-sedated ANC wnl; foot looking better 09/03 continue treatment plan; will increase clozapine by 12.5mg on thursday night; pt agrees foot is a little better, says less painful and will continue taking abx 09/07 He says he feels good...regarding [employer] (about which he still intermittently direct comments towards staff) he says maybe it was just a series of coincidences...maybe all in my head...I'm trying to forget about it... Venetian Blind Installer tries to discuss further but patient not willing to talk about it more, saying you are just trying to find ways to keep me here longer... Discussed why he thinks things are better and patient says that medications are the vivar component to recoverying from this crisis... and that the crisis is going down. Despite this sentiment, patient is ambivalent about whether he will continue taking it, saying he does not want to keep getting blood draws; declines to have a VNA. Says that perhaps he be willing to go once a week to a clinic to get his blood drawn but he skeptical that he would continue this for very long. He said he was doing fine on the Zyprexa and wanted to still be on it. Venetian Blind Installer asked about the fact that he paces consistently, throughout the day and even instead of sleeping. Patient says it is just to get exercise and to help him cope with being on the unit so long. He denies that it is interfering in any way with his feet healing (although he has been repeatedly told to stay off his feet to help them heal)... And again says screenplay writer is trying to find a way to make him stay longer the unit. PLAN: Section 8/8b involuntary commitment and substituted judgment ordered Q 15 minute checks Schizophrenia: Increased to Clozapine OdT 100 mg qhs.; (* COURT ORDERED; cannot refuse.. Give IM ziprasidone if refuses p.o.) -was transiently a little confused during previous titration; will retitrate more slowly Left toe osteomyelitis/(cellulitis resolved): Options are removal affected bone toe (patient doesnt want this) iV antibiotic suppressiv ( 6 weeks ,70% no cure) Po suppression ( may help and patient will accept this (Po Augmentin for two weeks and po Bactrim DS bid for 4 weeks and then maybe one Bactrim DS every ,, Thursday indefinitely MRI IMPRESSION 08/26: 1. Findings suspicious for osteomyelitis of the 1st distal phalanx, most prominent at the tuft. 2. Probable shallow soft tissue ulcers at the dorsal aspect of the great toe and plantar/medial aspect of the distal great toe with underlying cellulitis. No abscess. 3. Mild marrow edema at the proximal aspect of the 2nd and 5th metatarsals is likely degenerative or stress related. Otherwise: Continue Clonazepam 1mg to bid; continue Gabapentin 600 mg t.i.d Methadone 85 mg daily ANC 3.3 (08/20) ANC 6800 Lft's mild-moderately elevated, likely due to Ziprasidone Medication options per court ordered substituted judgment: Clozapine Ziprasidone not effective even at therapeutic doses Thorazine Fluphenazine Perphenazine Zyprexa Past med trials: Zyprexa: not effective Seroquel sedation Haldol: dystonic reaction/tongue swelling, Risperdal: emotional numbing. Patient educated on: diagnosis, medication risk/benefits and medical condition Informed Consent: understands, does not understand and further education needed Reason for continued inpatient stay Substantial Risk for: inability to function Time Spent With Patient Time: Total time managing care of this patient today ____ minutes.
[2023-09-07] MEDS: Sulfamethox/Trimeth 800/160 TABLET 1 TAB PO ×2 (11:07→23:12)
[2023-09-07 11:25] VITALS: BP 112/60; PULSE 108; RESP 18; TEMP 36.3; O2SAT 95
[2023-09-07] MEDS: Nicotine 21 MG PATCH.TD24 TRANSDERMA (11:38)
[2023-09-07] MEDS: clonazePAM 0.5 MG TABLET PO (14:04)
[2023-09-07 18:00] VITALS: RESP 16
[2023-09-07] MEDS: cloZAPine ODT 25 MG TAB.RAPDIS 100 MG PO (23:12)
[2023-09-07] MEDS: Melatonin 3 MG TABLET PO (23:13)
[2023-09-08] MEDS: Nicotine 21 MG PATCH.TD24 TRANSDERMA (08:00)
[2023-09-08] MEDS: methADONE HCl 20 MG/2 ML ORAL.CONC 85 MG PO (08:01)
[2023-09-08] MEDS: Gabapentin 300 MG CAPSULE 600 MG PO ×3 (08:01→20:01)
[2023-09-08] MEDS: Nicotine Polacrilex 2 MG GUM 4 MG BUCCAL ×4 (08:01→20:02)
[2023-09-08] MEDS: clonazePAM 1 MG TABLET PO ×2 (08:01→20:01)
[2023-09-08 08:20] VITALS: BP 138/64; PULSE 122; RESP 18; TEMP 36.1; O2SAT 97
[2023-09-08] MEDS: Sulfamethox/Trimeth 800/160 TABLET 1 TAB PO ×2 (09:15→21:59)
--- NOTE | 2023-09-08 10:30 | P.PNPSI_ITS ---
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 lotion and monitor will get EKG and consider increasing Ziprasidone as no appreciable improvment/reduction of symptoms 08/10 says he's better, not feeling persecuted, but behaviors remain the same, internally preoccupied, pacing non-stop, self-dialoguing, isolative...concern is that nothing has really changed other than patient disclosing less qtc wnl. 08/12 today, SW and repairer typewriter met with patient. ?He?shared?about?some?plans?he?has?once?discharged,?which? 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 ?Patient?still?feels Persecuted?by they and?or?FRED...??He?says?he?does?not?feel?it?is?quite?as?bad?as?when?he?1st?was?ad mitted. However,later on?he?accused?a?nurse?that?she?was?part?of?the?[facility]ED?and?would?not?let?her?examine ?his?foot w ound.??Also?he?made?a?sexually?inappropriate?remark?to?her,?talking?about?a?medi cation?squirting...and said to her I like it when roman in my mouth, like tits and penis... 08/13 No?change?in?presentation;?discussed?with?patient?change?of?med?and?the?need?for ?labs?but?he?refused. A NC?lab?necessary?to?start?clozapine?falls?into?court?order.??Patient?needed?staf f/security?to?hold?him for?blood?draw and pt very upset about it. Regarding?medication?decisions:??Will?switch?patient?to?clozapine P atient?has?had?numerous?hospitalizations?this?past?year,?either?with?little?bene fit?from?medications?or?quickly?discontinuing?them On?discharge?And?again?becoming?psychotic?and?unsafe. Even?at?nearly?max?doses?of?ziprasidone (or zyprex),?patient?has?remained?with?significantly?and?life?impairing?psychosis. Patient's?suicidality?has?lessened?and?he's?future?oriented (though with?completely?unrealistic?goals), However, he remains psychotic, with paranoid?delusions,?internally?preoccupied,no?insight,?disorganized in speech and behavior,?sexual inapropriate,talking?to?himself,?disheveled?and?isolative. Due to parnoia, he's not letting staff address his foot wound which needs to be attended to daily. He?is?taking?medication?only?because?it?is?court?ordered and monitored. Though?slightly?improved,?were?he?to?discharge,?he?still could not?function?on?his?own?in?the?community; he has no insight, has repeatedly tried to avoid taking medications and there?is?no?reason?to?expect?he would?remain adherent. He would quickly?decompensate, become suicidal. ?Discussed?at?length?with?team.??Patient?very?much?does?not?want?blood?draws,?ho wever C lozapine?remains?the?most?likely?effective?medication?available?and?patient's?be st?chance?at?gaining?insight?into?his?illness?and Progressing?him?towards?being?able?to?function?in?the?community. -Clozapine least likely to cause dystonic reaction which he had from Haldol, making other 1st generation antipsychotics less optimal -plan to change meds discussed with patient who was unable to appreciate reasoning, his illness and limits in functioning. 08/15/23: Continue current regimen and plans 08/16/2023: Continue current regimen and plans. Zyprexa in reaction to Clozaril refusal changed to Zyprexa Zydis 10 mg b.i.d. p.r.n. 08/17 Patient says he has no longer sedated and that was only because of Zyprexa and as asking for clonazepam to be returned and gabapentin increase back to former dose.. Freel[employer] Stenographer agreed saying it was just held out of concern. Patient took Clozaril today and said he would continue to do so. Otherwise remains with same presentation, paranoid delusions, disorganized behavior 08/18 change clozapine to q.h.s. since patient complains of daytime sedation -refuses to let would nurse or anyone treat feet 08/19 continue current treatment plan; will leave clozapine at current dose for tonight but then continue titration 08/20 allowed blood draw; little more lighthearted and joked with repairer typewriter 08/21 same presentation. Patient says he isn't really having voices anymore however it is very difficult to tell if patient is just saying what he knows staff is looking to hear. Behaviors remain disorganized, constant pacing, poor insight, will not let anyone address foot wound 08/22 patient is more sedated this morning. It is difficult to tell the cause of it. Is it because he continues to refuse to sleep and instead paces the hills and has been doing so for weeks? Is it because clonazepam was increased? Or is it because clozapine was titrated to quickly for him? Staff felt he was a little more confused this morning though this did seem to resolve. Because of this repairer typewriter is lowering dose of Clozaril back to 25 mg and will titrate more slowly. Did not get a clonazepam level since patient gets traumatized with blood draws and if level supratherapeutic, this should be resolved by lowering dose. Will get level next time draw ANC. If patient remains too sedated, will again lower clonazepam dose in the morning 08/23 continue tx plan, with clozapine lowered to 25mg for now 08/24 no longer sedated; irritable; limited insight. Denying SI or AH and saying he feels better on the new medication. Still however with disorganized behaviors and refusing to let his feet be examined/treated; discussed refusal as relevant to his state of mind, that if thinking clearly would want tx to avoid infection and its consequences 08/25 Patient remains psychotic and difficult with which to engage. Continues to walk up and down the hills nonstop, talking to himself, making odd hand gestures. When asked about psychiatric/psychotic symptoms he denies them however there is no improvement in his behavior at all which remains disorganized. Intermittently incontinent of urine; although Clozaril can cause nocturnal enuresis, that patient becomes overly tired since he consistently it seems more likely that this incontinence is due to patient becoming excessively tired as he consistently refuses to let himself sleep in order to pace the halls. Will continue to titrate Clozaril. Although he verbally says he is doing better, denying voices or worried about persecution, his behaviors remain disorganized; his insight and judgment remain severely impaired as revealed by his refusal to have wound care, nursing examine or treat his feet even though he has been repeatedly educated on the serious risk of refusing treatment, including the possibility of eventual amputation. Patient clearly enjoys walking and he wants his feet to heal (having told repairer typewriter so several times, but adding he does not trust proposed tx, thinking they'll make his foot worse...and saying he thinks they are getting better) and if patient were organized in his thinking or free from paranoid delusions,, he would want and except treatment. -Patient has thus far been refusing to let wound nurse or any nurse examine or treat his feet. Today however he allowed nursing, wound nurse and repairer typewriter to assess which revealed concerning cellulitis of left lower extremity. He did allow wound nurse to bathe his feet but would not allow any additional treatment or bandaging with appropriate material. -Hospitalist consult placed to further assess and start antibiotics. 08/26 Patient refused antibiotics today. However, after infectious disease physician, Dr. Whalen came to examine patient, he did agree to getting an MRI, taking antibiotics and getting lab work done, including expanded lab work to assess infection... He asked for additional clonazepam for anxiety for these interventions to which repairer typewriter agreed. Otherwise same presentation Hospitalist JERRELL note from 08/25 Venous duplex negative for DVT, but shows significantly enlarged abnormal inguinal nodes, likely infectious/inflammatory. Unfortunately, the patient is refusing labs and vital signs to help assess the severity of the extensive cellulitis of nearly 40-50% LLE. XR does appear negative for osteomyelitis, thought would still recommend assessing ESR/CRP. Will consult ID for further input. -briefly talked to radiologist who said from Xray that 2nd metatarsal tip has a cyber fracture osvaldo to avascular necrosis Regarding blood work in context of being on Clozapine with LLE Cellulitis : Clozaril, as with other Antipsychotic medications, ?can affect liver, kidney, hyperglycemia, electrolytes which warrants monitoring.?However, Clozaril can also cause agranulocytosis, leukopenia and neutropenia. ?Currently patient has a severe cellulitis and has been refusing vitals and antibiotics.? Patient is on clozapine to treat severe paranoid delusions which directly impair his ability to understand and make judgments about his physical health. ?Stopping the titration of clozapine risks worsening his paranoid delusions.? Conversely, given the potential risks of clozapine it is imperative to know the extent of this infection and whether it is becoming systemic so as to know how to manage clozapine dosing and if it needs to be temporarily discontinued.?For this reason, will expand lab work ordered to include measuring parameters of infection. ?Freel[employer] Stenographer discussed this with Dr. Marie, medical reimbursement manager of the psychiatric unit who fully agrees with this plan. 08/27 remains psychotic, disorganized -patient not septic, WBC, ANC WNL; can continue Clozaril titration However patient did take antibiotics today without too much problem. Freel[employer] Stenographer discussed MRI results with patient and likelihood of osteomyelitis; he does not want IV antibiotics but agrees to take extended p.o. antibiotics. Freelance [employer] Stenographer discussed case, MRI, labs with Dr. Whalen who at this time feels that while IV antibiotics are preferable and have increased chance of treating osteomyelitis, there is no guarantee that IV antibiotics would be curative; at this point she recommends continuing current p.o. antibiotics and extending Bactrim trial to 1 month 08/28 pt stating he will take the antibiotics continue current treatmetn plan 08/31 appreciate recs from ID continue titration of Clozapine as tolerated 09/02 continue treatment plan; will leave clozapine at 75 mg for now so as not to titrate to quickly and over-sedated ANC wnl; foot looking better 09/03 continue treatment plan; will increase clozapine by 12.5mg on thursday night; pt agrees foot is a little better, says less painful and will continue taking abx 09/07 He says he feels good...regarding FRED (about which he still intermittently direct comments towards staff) he says maybe it was just a series of coincidences...maybe all in my head...I'm trying to forget about it... Freel[employer] [address] Stenographer tries to discuss further but patient not willing to talk about it more, saying you are just trying to find ways to keep me here longer... Discussed why he thinks things are better and patient says that medications are the vivar component to recoverying from this crisis... and that the crisis is going down. Despite this sentiment, patient is ambivalent about whether he will continue taking it, saying he does not want to keep getting blood draws; declines to have a VNA. Says that perhaps he be willing to go once a week to a clinic to get his blood drawn but he skeptical that he would continue this for very long. He said he was doing fine on the Zyprexa and wanted to still be on it. Freel[address] Stenographer asked about the fact that he paces consistently, throughout the day and even instead of sleeping. Patient says it is just to get exercise and to help him cope with being on the unit so long. He denies that it is interfering in any way with his feet healing (although he has been repeatedly told to stay off his feet to help them heal)... And again says repairer typewriter is trying to find a way to make him stay longer the unit. 2/6 continues to have poor sleep, only sleeping about 4 hours total, but only 2 hours in a row, broken up by incessant pacing through the night (and continuing all day long); while pacing, he remains internally preoccupied, talking to himself, making odd hand gestures. -remains inttermittently making sexually inappropriate remarks to female nurses -refuses foot soak Summarization as of 09/08/23 Car remains psychotic: he has intense paranoid delusional worries about being persecuted by [employer]; he's internally preoccupied and with disorganized behavior, pacing incessantly day and night, only pausing to eat or sleep for limited time; little to no attention to ADL's with days old food in his potter. He has learned to hide his psychotic symptoms from repairer typewriter on inquiry, denying AVH/delusions and to say what he believes repairer typewriter wants to hear, such as medications are the reason he is better and he'll keep taking them. However, intermittently he lets his guard down with select staff and reveals ongoing paranoid delusions. He has no insight into his psychotic illness and it is writers opinion that were he discharged today, he would quickly stop taking medications, including antibiotics for osteomylitis and quickly decompensate, again becoming suicidal. Plan remains to continue titrating Clozapine. Early on, Car had a negative reaction when Clozapine dose was increased too quickly; titration thus needs to go more slowly which is extending time needed to stabilize patient. The hope remains that once Clozapine reaches a therapeutic dose, his insight will improve enough that he can remain stable in the community. However, team has also considered that to achieve this Car might need an extended hospital stay and that admission [facility] might be necessary. PLAN: Section 8/ involuntary commitment and substituted judgment ordered Q 15 minute checks Schizophrenia: -Will add Clozapine 12.5mg qhs on 09/09 -Continue Clozapine OdT 100 mg qhs.; (* COURT ORDERED; cannot refuse.. Give IM ziprasidone if refuses p.o.) -titrating slowly to avoid side-effects Left toe osteomyelitis/(cellulitis resolved): Options are removal affected bone toe (patient doesnt want this) iV antibiotic suppressiv ( 6 weeks ,70% no cure) Po suppression ( may help and patient will accept this (Po Augmentin for two weeks and po Bactrim DS bid for 4 weeks and then maybe one Bactrim DS every ,, Thursday indefinitely MRI IMPRESSION 08/26: 1. Findings suspicious for osteomyelitis of the 1st distal phalanx, most prominent at the tuft. 2. Probable shallow soft tissue ulcers at the dorsal aspect of the great toe and plantar/medial aspect of the distal great toe with underlying cellulitis. No abscess. 3. Mild marrow edema at the proximal aspect of the 2nd and 5th metatarsals is likely degenerative or stress related. Otherwise: Continue Clonazepam 1mg to bid; continue Gabapentin 600 mg t.i.d Methadone 85 mg daily ANC 3.3 (08/20) ANC 6800 Lft's mild-moderately elevated, likely due to Ziprasidone Medication options per court ordered substituted judgment: Clozapine Ziprasidone not effective even at therapeutic doses Thorazine Fluphenazine Perphenazine Zyprexa Past med trials: Zyprexa: not effective Seroquel sedation Haldol: dystonic reaction/tongue swelling, Risperdal: emotional numbing. Patient educated on: diagnosis and medication risk/benefits Informed Consent: does not understand Reason for continued inpatient stay Substantial Risk for: inability to function Time Spent With Patient Time: Total time managing care of this patient today ____ minutes.
[2023-09-08] MEDS: clonazePAM 0.5 MG TABLET PO (14:15)
[2023-09-08 18:00] VITALS: RESP 18
[2023-09-08] MEDS: cloZAPine ODT 25 MG TAB.RAPDIS 100 MG PO (21:58)
[2023-09-09] MEDS: clonazePAM 0.5 MG TABLET PO (06:30)
[2023-09-09] MEDS: Nicotine Polacrilex 2 MG GUM 4 MG BUCCAL ×4 (06:30→14:49)
[2023-09-09] MEDS: methADONE HCl 20 MG/2 ML ORAL.CONC 85 MG PO (07:59)
[2023-09-09] MEDS: clonazePAM 1 MG TABLET PO ×2 (08:01→21:10)
[2023-09-09] MEDS: Gabapentin 300 MG CAPSULE 600 MG PO ×3 (08:01→21:10)
[2023-09-09] MEDS: Nicotine 21 MG PATCH.TD24 TRANSDERMA (08:14)
[2023-09-09 08:16] VITALS: RESP 18; TEMP 36.4
[2023-09-09] MEDS: Sulfamethox/Trimeth 800/160 TABLET 1 TAB PO ×2 (10:28→21:10)
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
[2023-09-09] MEDS: Nicotine Polacrilex 2 MG GUM BUCCAL ×2 (15:55→17:29)
[2023-09-09 18:00] VITALS: RESP 18; TEMP 36
[2023-09-09] MEDS: cloZAPine 25 MG TABLET 12.5 MG PO (21:09)
[2023-09-09] MEDS: cloZAPine ODT 25 MG TAB.RAPDIS 100 MG PO (21:10)
[2023-09-10 07:00] VITALS: BMI 25.3
[2023-09-10 08:20] VITALS: RESP 18; TEMP 36.6
[2023-09-10] MEDS: Nicotine 21 MG PATCH.TD24 TRANSDERMA (08:24)
[2023-09-10] MEDS: methADONE HCl 20 MG/2 ML ORAL.CONC 85 MG PO (08:25)
[2023-09-10] MEDS: clonazePAM 1 MG TABLET PO ×2 (08:26→21:07)
[2023-09-10] MEDS: Gabapentin 300 MG CAPSULE 600 MG PO ×3 (08:26→21:07)
[2023-09-10] MEDS: Nicotine Polacrilex 2 MG GUM 4 MG BUCCAL ×5 (08:28→23:06)
[2023-09-10] MEDS: Sulfamethox/Trimeth 800/160 TABLET 1 TAB PO ×2 (09:17→23:00)
[2023-09-10 09:28] LABS: WBCANC 4.1 X10*3/uL
[2023-09-10 09:31] LABS: Neut%MD 53.7 %; Neutrophils Absolute Auto 2.2 x10*3/uL (2.0-8.3)
[2023-09-10] MEDS: Nicotine Polacrilex 2 MG GUM BUCCAL (12:16)
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
[2023-09-10] MEDS: clonazePAM 0.5 MG TABLET PO (14:53)
[2023-09-10] MEDS: cloZAPine ODT 25 MG TAB.RAPDIS 100 MG PO (22:59)
[2023-09-10] MEDS: cloZAPine 25 MG TABLET 12.5 MG PO (23:00)
[2023-09-11 08:00] VITALS: RESP 18; TEMP 36.2
[2023-09-11] MEDS: Sulfamethox/Trimeth 800/160 TABLET 1 TAB PO ×2 (09:03→23:09)
[2023-09-11] MEDS: clonazePAM 1 MG TABLET PO ×2 (09:03→20:37)
[2023-09-11] MEDS: Gabapentin 300 MG CAPSULE 600 MG PO ×3 (09:03→20:36)
[2023-09-11] MEDS: methADONE HCl 20 MG/2 ML ORAL.CONC 85 MG PO (09:03)
[2023-09-11] MEDS: Nicotine Polacrilex 2 MG GUM 4 MG BUCCAL ×6 (10:47→23:09)
[2023-09-11] MEDS: clonazePAM 0.5 MG TABLET PO (15:21)
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
[2023-09-11] MEDS: cloZAPine ODT 25 MG TAB.RAPDIS 125 MG PO (23:08)
[2023-09-12 08:00] VITALS: RESP 18
[2023-09-12] MEDS: methADONE HCl 20 MG/2 ML ORAL.CONC 85 MG PO (08:41)
[2023-09-12] MEDS: clonazePAM 1 MG TABLET PO ×2 (08:41→20:42)
[2023-09-12] MEDS: Nicotine 21 MG PATCH.TD24 TRANSDERMA (08:41)
[2023-09-12] MEDS: Gabapentin 300 MG CAPSULE 600 MG PO ×3 (08:41→20:41)
[2023-09-12] MEDS: Nicotine Polacrilex 2 MG GUM 4 MG BUCCAL ×5 (08:42→20:41)
[2023-09-12] MEDS: Sulfamethox/Trimeth 800/160 TABLET 1 TAB PO ×2 (09:29→21:49)
[2023-09-12] MEDS: Nicotine Polacrilex 2 MG GUM BUCCAL (09:32)
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
[2023-09-12] MEDS: clonazePAM 0.5 MG TABLET PO (21:49)
[2023-09-12] MEDS: cloZAPine ODT 25 MG TAB.RAPDIS 125 MG PO (21:49)
[2023-09-13 08:00] VITALS: RESP 18
[2023-09-13] MEDS: Sulfamethox/Trimeth 800/160 TABLET 1 TAB PO ×2 (09:10→22:21)
[2023-09-13] MEDS: Gabapentin 300 MG CAPSULE 600 MG PO ×2 (09:10→20:48)
[2023-09-13] MEDS: clonazePAM 1 MG TABLET PO ×2 (09:10→20:48)
[2023-09-13] MEDS: methADONE HCl 20 MG/2 ML ORAL.CONC 85 MG PO (09:10)
[2023-09-13] MEDS: Nicotine Polacrilex 2 MG GUM 4 MG BUCCAL ×5 (09:13→22:26)
[2023-09-13] MEDS: Nicotine 21 MG PATCH.TD24 TRANSDERMA (09:14)
[2023-09-13] MEDS: clonazePAM 0.5 MG TABLET PO (13:31)
[2023-09-13] MEDS: cloZAPine ODT 25 MG TAB.RAPDIS 125 MG PO (22:21)
[2023-09-14 06:00] VITALS: RESP 18
[2023-09-14] MEDS: Nicotine Polacrilex 2 MG GUM 4 MG BUCCAL ×6 (06:00→20:22)
[2023-09-14] MEDS: Sulfamethox/Trimeth 800/160 TABLET 1 TAB PO ×2 (08:13→22:31)
[2023-09-14] MEDS: Gabapentin 300 MG CAPSULE 600 MG PO ×3 (08:14→22:30)
[2023-09-14] MEDS: clonazePAM 1 MG TABLET PO ×2 (08:14→20:22)
[2023-09-14] MEDS: methADONE HCl 20 MG/2 ML ORAL.CONC 85 MG PO (08:15)
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
[2023-09-14] MEDS: Nicotine Polacrilex 2 MG GUM BUCCAL ×4 (13:22→20:25)
[2023-09-14] MEDS: clonazePAM 0.5 MG TABLET PO (14:23)
[2023-09-14] MEDS: cloZAPine 25 MG TABLET 12.5 MG PO (22:29)
[2023-09-14] MEDS: cloZAPine ODT 25 MG TAB.RAPDIS 125 MG PO (22:30)
[2023-09-15] MEDS: methADONE HCl 20 MG/2 ML ORAL.CONC 85 MG PO (08:38)
[2023-09-15] MEDS: Gabapentin 300 MG CAPSULE 600 MG PO ×3 (08:39→20:02)
[2023-09-15] MEDS: clonazePAM 1 MG TABLET PO ×2 (08:40→20:02)
[2023-09-15] MEDS: Nicotine Polacrilex 2 MG GUM 4 MG BUCCAL ×5 (08:40→21:47)
[2023-09-15 09:26] VITALS: RESP 20; TEMP 36.7
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
[2023-09-15] MEDS: Sulfamethox/Trimeth 800/160 TABLET 1 TAB PO ×2 (10:24→21:45)
[2023-09-15] MEDS: clonazePAM 0.5 MG TABLET PO (10:43)
[2023-09-15] MEDS: Nicotine Polacrilex 2 MG GUM BUCCAL (15:56)
[2023-09-15] MEDS: cloZAPine ODT 25 MG TAB.RAPDIS 150 MG PO (21:45)
[2023-09-15] MEDS: QUEtiapine Fumarate 100 MG TABLET PO (21:47)
[2023-09-16] MEDS: Nicotine Polacrilex 2 MG GUM 4 MG BUCCAL ×4 (07:03→16:57)
[2023-09-16] MEDS: clonazePAM 0.5 MG TABLET PO (07:03)
[2023-09-16 08:00] VITALS: RESP 18; TEMP 36.4
[2023-09-16] MEDS: methADONE HCl 20 MG/2 ML ORAL.CONC 85 MG PO (08:04)
[2023-09-16] MEDS: clonazePAM 1 MG TABLET PO ×2 (08:05→22:18)
[2023-09-16] MEDS: Nicotine Polacrilex 2 MG GUM BUCCAL ×3 (08:05→16:59)
[2023-09-16] MEDS: Gabapentin 300 MG CAPSULE 600 MG PO ×3 (08:05→22:18)
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
[2023-09-16] MEDS: Sulfamethox/Trimeth 800/160 TABLET 1 TAB PO ×2 (09:40→22:18)
--- NOTE | 2023-09-16 12:01 | HO.WOUND ---
Wound Consult: Follow up 32yr old male admitted to [facility] [place] [place] on?07/10/23 20:11 to the Inpatient Behavioral Health Unit - See progress notes and H&P for detailed history. Follow up wound assessment. Arrival to the unit the patient was agreeable to foot assessment - the patient denies needing any topical treatment but is agreeable to assessment. The cellulitis does appear to be resolved at this time. The patient had recently exited the shower and no dressing in place. The patient and staff report he is not wearing a dressing due to refusal. Several attempts were made for topical application to cover and protect wound from worsening, to protect from friction and foreign microbial - he was ultimately agreeable however it did take some rewarding by his direct care nurse to allow for topical dressing to be applied. I recommend Hydrocolloid cut to size at this time - the patient will still be able to observe his feet and the thin nature of the dressing will hopefully lend to him allowing more frequent application than he is allow now. The wound beds are dry and scabbed over - Hydrocolloid will allow for moist wound healing in addition to protection from friction and foreign microbes. Recommendations: 1. Provide adequate and supplemental nutrition. 2. Left Great Toe (Dorsal and Posterior Wounds) - Cleanse with PH balanced soap and water or with routine showering, Pat dry. Apply cut to size Hydrocolloid to wound bed to allow for moist wound healing. Change every 3 days and PRN. Re-consult wound care Nurse for wound deterioration or wound changes.
[2023-09-16] MEDS: cloZAPine ODT 25 MG TAB.RAPDIS 150 MG PO (22:20)
[2023-09-17] MEDS: Nicotine Polacrilex 2 MG GUM 4 MG BUCCAL ×7 (00:22→22:00)
[2023-09-17 07:00] VITALS: BMI 25.4
[2023-09-17 08:05] VITALS: RESP 16
[2023-09-17] MEDS: Sulfamethox/Trimeth 800/160 TABLET 1 TAB PO ×2 (08:23→21:53)
[2023-09-17] MEDS: methADONE HCl 20 MG/2 ML ORAL.CONC 85 MG PO (08:23)
[2023-09-17] MEDS: Gabapentin 300 MG CAPSULE 600 MG PO ×3 (08:24→20:05)
[2023-09-17] MEDS: clonazePAM 1 MG TABLET PO ×2 (08:24→20:05)
[2023-09-17 08:59] LABS: Neut%MD 53.1 %; Neutrophils Absolute Auto 2.9 x10*3/uL (2.0-8.3); WBCANC 5.5 X10*3/uL
[2023-09-17] MEDS: clonazePAM 0.5 MG TABLET PO (15:09)
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
[2023-09-17] MEDS: Nicotine Polacrilex 2 MG GUM BUCCAL ×2 (17:56→20:06)
[2023-09-17 18:10] VITALS: RESP 16
[2023-09-17] MEDS: cloZAPine 25 MG TABLET 12.5 MG PO (21:53)
[2023-09-17] MEDS: cloZAPine ODT 25 MG TAB.RAPDIS 150 MG PO (21:54)
[2023-09-18 06:00] VITALS: RESP 18
[2023-09-18] MEDS: Gabapentin 300 MG CAPSULE 600 MG PO ×3 (09:05→19:42)
[2023-09-18] MEDS: clonazePAM 1 MG TABLET PO ×2 (09:05→19:42)
[2023-09-18] MEDS: methADONE HCl 20 MG/2 ML ORAL.CONC 85 MG PO (09:05)
[2023-09-18] MEDS: Sulfamethox/Trimeth 800/160 TABLET 1 TAB PO (09:05)
[2023-09-18] MEDS: Nicotine Polacrilex 2 MG GUM 4 MG BUCCAL ×5 (09:24→18:35)
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
[2023-09-18] MEDS: clonazePAM 0.5 MG TABLET PO (14:06)
[2023-09-19] MEDS: cloZAPine ODT 25 MG TAB.RAPDIS 175 MG PO ×2 (00:12→22:34)
[2023-09-19] MEDS: Sulfamethox/Trimeth 800/160 TABLET 1 TAB PO ×3 (00:14→22:16)
[2023-09-19] MEDS: Nicotine Polacrilex 2 MG GUM 4 MG BUCCAL ×6 (00:15→22:15)
[2023-09-19] MEDS: clonazePAM 1 MG TABLET PO ×2 (08:11→19:37)
[2023-09-19] MEDS: methADONE HCl 20 MG/2 ML ORAL.CONC 85 MG PO (08:11)
[2023-09-19] MEDS: Gabapentin 300 MG CAPSULE 600 MG PO ×3 (08:11→19:38)
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
[2023-09-19] MEDS: clonazePAM 0.5 MG TABLET PO (13:06)
[2023-09-19] MEDS: Melatonin 3 MG TABLET PO (22:15)
[2023-09-20] MEDS: Nicotine Polacrilex 2 MG GUM 4 MG BUCCAL ×6 (04:20→19:45)
[2023-09-20] MEDS: clonazePAM 0.5 MG TABLET PO (04:20)
[2023-09-20 06:00] VITALS: BP 104/68; PULSE 123; RESP 16; TEMP 36.4; O2SAT 93
[2023-09-20] MEDS: methADONE HCl 20 MG/2 ML ORAL.CONC 85 MG PO (07:50)
[2023-09-20] MEDS: clonazePAM 1 MG TABLET PO ×2 (07:51→19:47)
[2023-09-20] MEDS: Sulfamethox/Trimeth 800/160 TABLET 1 TAB PO ×2 (07:51→19:47)
[2023-09-20] MEDS: Gabapentin 300 MG CAPSULE 600 MG PO ×3 (07:51→19:47)
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
--- NOTE | 2023-09-20 11:36 | PC.NURSE ---
Pt was observed drooling, slurring words (which is not new), and having urinary incontinence. This nurse sent a text via frents, to Dr Abdirahman Page.
[2023-09-20] MEDS: Nicotine Polacrilex 2 MG GUM BUCCAL ×2 (14:18→19:45)
[2023-09-20 18:00] VITALS: RESP 18
[2023-09-20] MEDS: Ziprasidone Mesylate 20 MG VIAL IM (19:51)
[2023-09-21 06:00] VITALS: BP 109/73; PULSE 96; RESP 18; TEMP 36.6; O2SAT 96
[2023-09-21] MEDS: clonazePAM 0.5 MG TABLET PO (06:54)
[2023-09-21] MEDS: Nicotine Polacrilex 2 MG GUM 4 MG BUCCAL ×6 (06:55→19:43)
[2023-09-21] MEDS: Nicotine Polacrilex 2 MG GUM BUCCAL ×5 (06:56→19:43)
[2023-09-21] MEDS: Nicotine 21 MG PATCH.TD24 TRANSDERMA (08:00)
[2023-09-21] MEDS: clonazePAM 1 MG TABLET PO ×2 (08:00→19:42)
[2023-09-21] MEDS: methADONE HCl 20 MG/2 ML ORAL.CONC 85 MG PO (08:00)
[2023-09-21] MEDS: Gabapentin 300 MG CAPSULE 600 MG PO ×3 (08:00→19:42)
[2023-09-21] MEDS: Sulfamethox/Trimeth 800/160 TABLET 1 TAB PO (08:55)
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
[2023-09-21 18:40] VITALS: RESP 16; TEMP 36.3
[2023-09-21] MEDS: Ziprasidone Mesylate 20 MG VIAL IM (21:56)
--- NOTE | 2023-09-21 22:38 | PC.NURSE ---
Pt refused Clozaril, IM Yisel requested and given per [place] order.
[2023-09-22] MEDS: Nicotine Polacrilex 2 MG GUM 4 MG BUCCAL ×7 (03:41→19:22)
[2023-09-22] MEDS: Nicotine Polacrilex 2 MG GUM BUCCAL ×6 (03:41→19:22)
[2023-09-22 08:14] VITALS: RESP 18; TEMP 36.2
[2023-09-22] MEDS: methADONE HCl 20 MG/2 ML ORAL.CONC 85 MG PO (09:19)
[2023-09-22] MEDS: clonazePAM 1 MG TABLET PO ×2 (09:20→20:01)
[2023-09-22] MEDS: Gabapentin 300 MG CAPSULE 600 MG PO ×3 (09:20→20:01)
[2023-09-22] MEDS: Nicotine 21 MG PATCH.TD24 TRANSDERMA (09:27)
[2023-09-22] MEDS: Sulfamethox/Trimeth 800/160 TABLET 1 TAB PO ×2 (10:30→22:04)
[2023-09-22] MEDS: clonazePAM 0.5 MG TABLET PO (12:16)
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
[2023-09-22 16:58] VITALS: RESP 18; TEMP 36.2
[2023-09-22] MEDS: Ziprasidone Mesylate 20 MG VIAL IM (22:04)
[2023-09-23] MEDS: clonazePAM 0.5 MG TABLET PO (04:52)
[2023-09-23] MEDS: Nicotine Polacrilex 2 MG GUM 4 MG BUCCAL ×6 (04:53→22:26)
[2023-09-23] MEDS: Nicotine Polacrilex 2 MG GUM BUCCAL ×6 (04:53→22:41)
[2023-09-23] MEDS: Gabapentin 300 MG CAPSULE 600 MG PO ×3 (08:15→22:24)
[2023-09-23] MEDS: clonazePAM 1 MG TABLET PO ×2 (08:16→19:50)
[2023-09-23] MEDS: Nicotine 21 MG PATCH.TD24 TRANSDERMA (08:21)
[2023-09-23 08:22] VITALS: BP 119/68; PULSE 103; RESP 16; TEMP 36.4; O2SAT 95
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
[2023-09-23] MEDS: methADONE HCl 20 MG/2 ML ORAL.CONC 85 MG PO (09:34)
[2023-09-23] MEDS: Sulfamethox/Trimeth 800/160 TABLET 1 TAB PO ×2 (14:58→22:25)
[2023-09-23 18:00] VITALS: TEMP 36.2
[2023-09-23] MEDS: Acetaminophen 325 MG TABLET 650 MG PO (18:05)
[2023-09-23] MEDS: Ziprasidone Mesylate 20 MG VIAL IM (22:23)
[2023-09-24 07:00] VITALS: BMI 25.7
[2023-09-24 08:15] VITALS: BP 116/69; PULSE 101; RESP 18; TEMP 36.3; O2SAT 96
[2023-09-24] MEDS: Nicotine Polacrilex 2 MG GUM 4 MG BUCCAL ×6 (08:18→22:33)
[2023-09-24] MEDS: Gabapentin 300 MG CAPSULE 600 MG PO ×3 (08:18→19:30)
[2023-09-24] MEDS: Nicotine Polacrilex 2 MG GUM BUCCAL ×6 (08:18→22:33)
[2023-09-24] MEDS: methADONE HCl 20 MG/2 ML ORAL.CONC 85 MG PO (08:18)
[2023-09-24] MEDS: Nicotine 21 MG PATCH.TD24 TRANSDERMA (08:19)
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
[2023-09-24] MEDS: clonazePAM 1 MG TABLET PO ×2 (09:45→19:30)
[2023-09-24] MEDS: clonazePAM 0.5 MG TABLET PO ×2 (12:38→14:27)
[2023-09-24] MEDS: Ziprasidone Mesylate 20 MG VIAL IM (22:16)
--- NOTE | 2023-09-25 | ECG_ITS ---
Test Reason : qtc check Blood Pressure : / mmHG Vent. Rate : 071 BPM Atrial Rate : 071 BPM P-R Int : 188 ms QRS Dur : 100 ms QT Int : 408 ms P-R-T Axes : 067 080 050 degrees QTc Int : 443 ms Normal sinus rhythm Normal ECG When compared with ECG of 07-AUG-2023 16:02, No significant change was found Referred By: Yael Benson Electronically Signed By:ELIJAH ALEXANDRA MD
[2023-09-25 06:00] VITALS: BP 113/67; PULSE 91; RESP 18; TEMP 36.4; O2SAT 97
[2023-09-25] MEDS: methADONE HCl 20 MG/2 ML ORAL.CONC 85 MG PO (08:07)
[2023-09-25] MEDS: Nicotine Polacrilex 2 MG GUM 4 MG BUCCAL ×6 (08:07→20:36)
[2023-09-25] MEDS: Gabapentin 300 MG CAPSULE 600 MG PO ×3 (08:08→19:59)
[2023-09-25] MEDS: clonazePAM 1 MG TABLET PO ×2 (08:08→19:59)
[2023-09-25] MEDS: Nicotine Polacrilex 2 MG GUM BUCCAL ×6 (08:11→20:36)
[2023-09-25] MEDS: clonazePAM 0.5 MG TABLET PO ×2 (10:50→15:57)
[2023-09-25] MEDS: Ziprasidone 40 MG CAPSULE PO ×2 (10:50→21:50)
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
[2023-09-25 19:45] VITALS: BP 136/78; PULSE 78; RESP 16; TEMP 36.7; O2SAT 97
[2023-09-26] MEDS: Nicotine Polacrilex 2 MG GUM BUCCAL ×6 (02:21→22:24)
[2023-09-26] MEDS: Nicotine Polacrilex 2 MG GUM 4 MG BUCCAL ×6 (02:21→22:23)
[2023-09-26] MEDS: clonazePAM 0.5 MG TABLET PO ×2 (02:22→13:29)
[2023-09-26] MEDS: methADONE HCl 20 MG/2 ML ORAL.CONC 85 MG PO (08:15)
[2023-09-26] MEDS: Gabapentin 300 MG CAPSULE 600 MG PO ×3 (08:15→19:36)
[2023-09-26] MEDS: Ziprasidone 40 MG CAPSULE PO ×2 (08:16→22:23)
[2023-09-26] MEDS: clonazePAM 1 MG TABLET PO ×2 (08:16→19:36)
[2023-09-26 08:45] VITALS: BP 122/61; PULSE 88; RESP 18; TEMP 36.3; O2SAT 97
[2023-09-26] MEDS: Nicotine 21 MG PATCH.TD24 TRANSDERMA (09:15)
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
[2023-09-26 18:00] VITALS: BP 115/59; PULSE 82; RESP 18; TEMP 36.2; O2SAT 97
[2023-09-27] MEDS: Nicotine Polacrilex 2 MG GUM 4 MG BUCCAL ×5 (00:58→16:58)
[2023-09-27] MEDS: Nicotine Polacrilex 2 MG GUM BUCCAL ×5 (00:59→16:58)
[2023-09-27] MEDS: clonazePAM 0.5 MG TABLET PO ×2 (01:24→14:46)
[2023-09-27 06:00] VITALS: PULSE 91; RESP 18; TEMP 36.3; O2SAT 96
[2023-09-27] MEDS: Nicotine 21 MG PATCH.TD24 TRANSDERMA (08:10)
[2023-09-27] MEDS: methADONE HCl 20 MG/2 ML ORAL.CONC 85 MG PO (08:11)
[2023-09-27] MEDS: clonazePAM 1 MG TABLET PO ×2 (08:12→20:09)
[2023-09-27] MEDS: Gabapentin 300 MG CAPSULE 600 MG PO ×3 (08:13→20:09)
[2023-09-27] MEDS: Ziprasidone Mesylate 20 MG VIAL IM ×2 (10:50→22:10)
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
[2023-09-27 17:06] VITALS: BP 124/57; PULSE 86; RESP 16; TEMP 36.7; O2SAT 96
[2023-09-27] MEDS: Melatonin 3 MG TABLET PO (20:09)
--- NOTE | 2023-09-27 21:27 | PC.NURSE ---
Addendum entered by Joanna Ramos RN 09/27/23 22:13: patient received IM Geodon 20mg in his right buttock without incident. Original Note: Car refused HS Geodon stating that it hurts my heart, I want the shot. That works yun WATKINS made aware orders for IM geogdon entered. IM medication is per patinet request and is not a medication restraint.
[2023-09-28] MEDS: Nicotine Polacrilex 2 MG GUM 4 MG BUCCAL ×2 (03:46→07:59)
[2023-09-28] MEDS: clonazePAM 0.5 MG TABLET PO ×2 (03:49→13:24)
--- NOTE | 2023-09-28 04:33 | PC.NURSE ---
Car informed this feature writer that he needed new sheets because he had wet the bed . He stated that this was happening with the Clozaril and that's why they switched me to the Geodon but, I'm still too sedated so I'm still peeing the bed . He also stated that he had not been telling anyone that he had been wetting the bed. Instead he has been getting new sheets and putting them over the wet ones so they will dry. This feature writer counseled the patient to change his sheets with each instance of incontinence, to was his clothing whenever soiled, to shower after episodes of incontinence, and to speak with his provider about nocturnal incontinence.
[2023-09-28] MEDS: Nicotine Polacrilex 2 MG GUM BUCCAL ×2 (05:02→08:00)
[2023-09-28] MEDS: Nicotine 21 MG PATCH.TD24 TRANSDERMA (07:59)
[2023-09-28 08:00] VITALS: BP 108/62; PULSE 86; RESP 18; TEMP 36.7; O2SAT 95
[2023-09-28] MEDS: Gabapentin 300 MG CAPSULE 600 MG PO ×3 (08:00→20:00)
[2023-09-28] MEDS: clonazePAM 1 MG TABLET PO ×2 (08:00→20:00)
[2023-09-28] MEDS: methADONE HCl 20 MG/2 ML ORAL.CONC 85 MG PO (08:00)
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
[2023-09-28] MEDS: Nicotine Polacrilex 2 MG GUM 6 MG BUCCAL ×3 (13:24→20:33)
[2023-09-28 13:58] LABS: Clozapine (Clozaril) <10 mcg/L; Norclozapine 13 mcg/L (25-400)
[2023-09-28 18:00] VITALS: RESP 18
--- NOTE | 2023-09-29 | ECG_ITS ---
Test Reason : QTC CHECK Blood Pressure : / mmHG Vent. Rate : 069 BPM Atrial Rate : 069 BPM P-R Int : 178 ms QRS Dur : 096 ms QT Int : 400 ms P-R-T Axes : 075 080 059 degrees QTc Int : 428 ms Normal sinus rhythm Normal ECG When compared with ECG of 25-SEP-2023 11:07, No significant change was found Referred By: David Marie Electronically Signed By:GAURAV MEDEROS
[2023-09-29] MEDS: Nicotine Polacrilex 2 MG GUM 6 MG BUCCAL ×7 (01:15→21:31)
[2023-09-29] MEDS: clonazePAM 0.5 MG TABLET PO ×2 (07:01→15:17)
[2023-09-29 08:00] VITALS: BP 119/58; PULSE 93; RESP 18; TEMP 36.4; O2SAT 96
[2023-09-29] MEDS: clonazePAM 1 MG TABLET PO ×2 (08:03→19:30)
[2023-09-29] MEDS: Gabapentin 300 MG CAPSULE 600 MG PO ×3 (08:03→19:30)
[2023-09-29] MEDS: methADONE HCl 20 MG/2 ML ORAL.CONC 85 MG PO (08:04)
[2023-09-29] MEDS: Nicotine 21 MG PATCH.TD24 TRANSDERMA (08:29)
[2023-09-29 10:32] LABS: Appearance Urine Clear; Color Urine Dark Yellow; Glucose Urine UA Negative (Negative); Leukocyte Esterase Urine Trace (Negative); Nitrite Urine Negative (Negative); PH 7.5 (5.0-9.0); Specific Gravity - Urine >= 1.030 (1.005-1.025); UMIC TRIGGER UA YES; Urine Blood Negative (Negative); Urine Ketones Trace mg/dL (Negative); Urine Protein Trace mg/dL (Neg-Trace)
[2023-09-29 10:57] LABS: Bacteria Urine None Seen (None Seen); Hyaline Casts Urine 0-2 /LPF (0-2); RBC Urine 0-2 /HPF (0-2); Squamous Epithelial Cell Urine 0-2 /HPF (0-2); WBC Urine 0-5 /HPF (0-5)
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
[2023-09-29 19:30] VITALS: BP 108/71; PULSE 94; TEMP 36.8
[2023-09-29] MEDS: QUEtiapine Fumarate 50 MG TABLET PO (22:31)
[2023-09-30] MEDS: clonazePAM 0.5 MG TABLET PO ×2 (05:16→16:47)
[2023-09-30] MEDS: Nicotine Polacrilex 2 MG GUM 6 MG BUCCAL ×6 (05:16→21:29)
[2023-09-30 06:00] VITALS: RESP 18
[2023-09-30] MEDS: methADONE HCl 20 MG/2 ML ORAL.CONC 85 MG PO (08:07)
[2023-09-30] MEDS: clonazePAM 1 MG TABLET PO ×2 (08:08→19:35)
[2023-09-30] MEDS: Gabapentin 300 MG CAPSULE 600 MG PO ×3 (08:09→19:35)
[2023-09-30] MEDS: Nicotine 21 MG PATCH.TD24 TRANSDERMA (08:09)
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
[2023-10-01] MEDS: Nicotine Polacrilex 2 MG GUM 6 MG BUCCAL ×4 (01:17→17:42)
[2023-10-01] MEDS: Trolamine Salicylate 10 % Cream 141 gm Tube 1 APPL TOPICAL (02:06)
[2023-10-01] MEDS: QUEtiapine Fumarate 100 MG TABLET PO (02:06)
[2023-10-01 06:00] VITALS: BP 110/55; PULSE 142; RESP 18; TEMP 36.3; O2SAT 100
[2023-10-01] MEDS: clonazePAM 1 MG TABLET PO ×2 (08:20→17:42)
[2023-10-01] MEDS: Gabapentin 300 MG CAPSULE 600 MG PO ×2 (08:20→14:55)
[2023-10-01] MEDS: methADONE HCl 20 MG/2 ML ORAL.CONC 85 MG PO (08:20)
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
--- NOTE | 2023-10-01 14:08 | HO.WOUND ---
Wound Consult: Follow up 32yr old male admitted to [facility] on?07/10/23 20:11 to the Inpatient Behavioral Health Unit - See progress notes and H&P for detailed history. Follow up wound assessment. Arrival to the unit the patient was mildly agreeable to foot assessment - the patient denies needing any topical treatment but is agreeable to assessment. The cellulitis does appear to be resolved at this time however bilateral feet are noted for firm swelling. Chart review reveals patient continues to pace hallway at times which is likely impacting swelling resolution. No warmth no redness noted. The patient feet were odorous - he allowed for his socks to be changed but not cleanse and no dressing applied. He became agitated when I went to touch the foot and refused me to take a picture of his foot. The anterior great toe is resolving nicely - there was not dressing in place and chart review reveal he is often refusing dressing application. There is a small pink newly epithielialized area that would benefit from protect with a dressing but he refused and the wound is healing. The posterior foot is dry and scabbed but appears smaller than my last assessment again he refused touching and dressing application. New clean socks provided and applied. I continue to recommend Hydrocolloid cut to size dressing at this time when the patient is agreeable to application. The patient will still be able to observe his feet and the thin nature of the dressing will hopefully lend to him allowing more frequent application than he is allow now. Recommendations: 1. Provide adequate and supplemental nutrition. 2. Left Great Toe (Dorsal and Posterior Wounds) - Cleanse with PH balanced soap and water or with routine showering, Pat dry. Apply cut to size Hydrocolloid to wound bed to allow for moist wound healing. Change every 3 days and PRN. Re-consult wound care Nurse for wound deterioration or wound changes.
[2023-10-01] MEDS: clonazePAM 0.5 MG TABLET PO (14:55)
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
[2023-10-01 18:00] VITALS: BP 108/54; PULSE 77; RESP 18; TEMP 36.3; O2SAT 97
== END 2023-10-01 18:09 | disposition home or self-care (01) | DRG 750 ==
PROVIDERS: Psychiatry & Neurology Psychiatry; Admitting Provider Psychiatry & Neurology Psychiatry; Visit Provider Psychiatry & Neurology Psychiatry
DX: F20.0 Paranoid schizophrenia (principal); R45.851 Suicidal ideations; L97.519 Non-pressure chronic ulcer of other part of right foot with unspecified severity; M86.672 Other chronic osteomyelitis, left ankle and foot; L03.032 Cellulitis of left toe; F11.20 Opioid dependence, uncomplicated; G62.9 Polyneuropathy, unspecified; L84 Corns and callosities; F17.210 Nicotine dependence, cigarettes, uncomplicated; Z91.51 Personal history of suicidal behavior; Z71.6 Tobacco abuse counseling; Z79.899 Other long term (current) drug therapy
CPT/HCPCS: 36415; 73620; 73718; 80053; 80061; 80159; 81001; 83036; 83615; 85025; 85048; 85652; 86140; 93005; 93971; J2359; J3486

== ENCOUNTER 2023-07-10 20:11 | Outpatient (BNV) | payer OTHER, SELFPAY | END 2023-09-29 11:06 | PROVIDERS: Admitting Provider Psychiatry & Neurology Psychiatry; Visit Provider Internal Medicine | DX: F25.9 Schizoaffective disorder, unspecified (principal) | CPT/HCPCS: 93010 ==

== ENCOUNTER 2023-07-10 20:11 | Outpatient (BNV) | payer OTHER, SELFPAY | END 2023-08-07 16:02 | PROVIDERS: Admitting Provider Psychiatry & Neurology Psychiatry; Visit Provider Internal Medicine Cardiovascular Disease | DX: F25.9 Schizoaffective disorder, unspecified (principal) | CPT/HCPCS: 93010 ==

== ENCOUNTER 2023-07-10 20:11 | Outpatient (BNV) | payer OTHER, SELFPAY | END 2023-09-25 11:07 | PROVIDERS: Admitting Provider Psychiatry & Neurology Psychiatry; Visit Provider Internal Medicine Cardiovascular Disease | DX: F25.9 Schizoaffective disorder, unspecified (principal) | CPT/HCPCS: 93010 ==

== ENCOUNTER → 2023-07-10 20:11 | Outpatient (BNV) | payer OTHER, SELFPAY | PROVIDERS: Admitting Provider Psychiatry & Neurology Psychiatry; Visit Provider Internal Medicine | DX: M86.9 Osteomyelitis, unspecified (principal) | CPT/HCPCS: 99499 ==

== ENCOUNTER → 2023-07-10 20:11 | Outpatient (BNV) | payer OTHER, SELFPAY | PROVIDERS: Admitting Provider Psychiatry & Neurology Psychiatry; Visit Provider Psychiatry & Neurology Psychiatry | DX: F25.1 Schizoaffective disorder, depressive type (principal); F11.20 Opioid dependence, uncomplicated; M86.9 Osteomyelitis, unspecified | CPT/HCPCS: 90792; 99231; 99232; 99239 ==

== ENCOUNTER → 2023-07-10 20:11 | Outpatient (BNV) | payer OTHER, SELFPAY | PROVIDERS: Admitting Provider Psychiatry & Neurology Psychiatry; Visit Provider Psychiatry & Neurology Psychiatry | DX: F25.0 Schizoaffective disorder, bipolar type (principal); F11.20 Opioid dependence, uncomplicated; M86.9 Osteomyelitis, unspecified | CPT/HCPCS: 99231; 99232 ==

== ENCOUNTER → 2023-07-10 20:11 | Outpatient (BNV) | payer OTHER, SELFPAY | PROVIDERS: Admitting Provider Psychiatry & Neurology Psychiatry; Visit Provider Physician Assistant | DX: L03.116 Cellulitis of left lower limb (principal); G62.9 Polyneuropathy, unspecified | CPT/HCPCS: 99222 ==

== ENCOUNTER 2024-03-26 15:37 | Inpatient (IN) | payer OTHER, SELFPAY ==
[2024-03-26 16:05] VITALS: BP 99/57; PULSE 60; RESP 14; TEMP 36.5; O2SAT 98
[2024-03-26 16:57] VITALS: BMI 20.6
--- NOTE | 2024-03-26 17:54 | HE.PHANOTE ---
Methadone Methadone verification form brought to pharmacy. Patient last received 130 mg on 03/25/24 @1024 per MILI Fernandez at [facility]. Patient was also at [facility] this morning (03/26) and received a dose of methadone.
--- NOTE | 2024-03-26 18:45 | PC.ADMIT ---
Mr. Car Ann is a 33 year old male who presented to [facility] ER on 03/25 with suicidal ideation and a plan to jump off a bridge. He was also delusional about, them being after him, trying to take my honor and humiliating me. He was admitted to , room 306-1 at 16:00 on a 12B. Cooperative with skin check which was unremarkable except for his feet bilaterally which had profound toe fungus and cellulitis-like inflamed areas primarily around the great toes. Tox screen was positive for benzos. Med reconciliation completed [facility] his [facility] [place] and the [facility]. Upon admission, he was grossly delusional, guarded and endorsed A/V hallucinations. He denied current suicidal ideation and said that years ago he used to lay on the tracks in [place] but was never hospitalized for this. He also denied Alcohol use and refused to respond to assessment of other substances. He should be considered a poor historian at this time, as he was dozing between questions and eventually refused to continue. Speech garbled at times and was difficult to follow his thinking. After he ended the assessment, he went to the bathroom and when he came out, his jose pants were soaked with urine. He did agree to change them. Sleeping soundly at this time. Provider does want us to keep an eye out for s/s of withdrawal from alcohol/ benzodiazepines / opiates. Vitals upon admission were 97.7- 60-16- 99/57- 98%.
[2024-03-26 19:50] VITALS: BP 98/56; PULSE 64; RESP 16; TEMP 36.9; O2SAT 99
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
[2024-03-26] MEDS: Gabapentin 600 MG TABLET PO (22:30)
[2024-03-26] MEDS: clonazePAM 0.5 MG TABLET PO (22:30)
[2024-03-26] MEDS: Nystatin Cream 15 GM TUBE 1 APPL TOPICAL (22:32)
[2024-03-27] MEDS: Nicotine Polacrilex 2 MG GUM 4 MG BUCCAL ×4 (03:19→21:49)
[2024-03-27] MEDS: methADONE HCl 20 MG/2 ML ORAL.CONC 130 MG PO (08:10)
[2024-03-27] MEDS: Gabapentin 600 MG TABLET PO ×3 (08:39→21:49)
--- NOTE | 2024-03-27 10:30 | PC.NURSE ---
Patient was offered admission paperwork for second time , releases, belongings slip and notice of rights 12b. Pt refused to sif=gn any paperwork, pt did take the notice of rights form and walk away. Pt refusing foot care for infection. Pt refused all medications except Gabapentin.
--- NOTE | 2024-03-27 13:09 | HO.PSYADMNOT ---
HPI Date of Service: 03/27/24 Chief Complaint: Crisis Sources of Information: patient interviewed, chart reviewed and crisis/core team assessment reviewed Additional Sources of Information: Nursing staff= HPI Subjective Notes: Section 12B Medical Problems Affecting Mental Status: No (but possible cellulitis in left foot _ though prior concerns about osteo ?) Narrative: 33 yo male with psychotic disorder hx of xs walking to point that his feet are quite in bad shape=- says he walked in [place] and this cause neuropathy on his left foot (few years? ago ) He wants his clonazepam restarted 0.5mg tid- tortured with paranoid thinking - managing by walking/pacing and talking to himself. He lives with his mother- who helps him with appointments- so doesn't know his pcp name - Thinks he sees someone called Dr Bright for his psychiatric medications but tends to just end up inpatient- Prior to admission he was thinking of jumping off a bridge- so was sent to [facility] ER and then to us. He is on gabapentin for neuropathy Recently also rxed depakote and olanzapine and seroquel - but he only wants seroquel- Told him that in order for seroquel to work for his paranoia he would need much much higher dose [id number], so he agreed to olanzapine and I put seroquel as prn at night Past Psychiatric History: Two prior hospitalizations. No outpatient connections. Medical Evaluation Reviewed: Hospitalist Eval Pending reviewed [facility] eval (14 pages sent over) [facility] Medical History Routine medical exam Cellulitis of great toe, left Peripheral neuropathy History of intravenous drug abuse Opiate dependence Family History: denies Social History: lives with mother, apparently traveled to [place] at some point Substance History: denies etoh/drugs despite being on methadone Trauma History: None reported Diagnostics Vital Signs (24Hr): Vital Signs - 24 hr 03/26/24 16:05 03/26/24 19:50 Temperature 97.7 F 98.4 F Pulse Rate 60 64 Respiratory Rate 14 16 Blood Pressure 99/57 L 98/56 L Pulse Oximetry 98 99 Oxygen Delivery Method Room Air Room Air BMI result Body Mass Index 20.6 Meds/Allergies Meds Home Medications ?Medication ?Instructions ?Recorded ?Confirmed ?Type clonazepam 0.5 mg tablet (Klonopin) 0.5 mg PO BID PRN Anxiety 03/26/24 03/26/24 History divalproex 500 mg tablet,delayed 500 mg PO BID 03/26/24 03/26/24 History release fluoxetine 10 mg capsule 10 mg PO DAILY 03/26/24 03/26/24 History methadone 10 mg/mL oral 130 mg PO DAILY 03/26/24 03/26/24 History concentrate (Methadose) olanzapine 20 mg tablet 20 mg PO BEDTIME 03/26/24 03/26/24 History quetiapine 50 mg tablet 200 mg PO BEDTIME 03/26/24 03/26/24 History Allergies Allergies Allergy/AdvReac Type Severity Reaction Status Date / Time haloperidol [From Haldol] AdvReac Severe tongue Verified 07/13/23 14:18 swelling Mental Status Exam Mental Status Exam Patient Appearance: Disheveled and Unkempt Patient Orientation: Person, Place, Time and Situation Level of Consciousness: Awake and Restless Patient Behavior: Cooperative, Restless, Wandering (more like pacing halls then wandering), Anxious and Poor Eye Contact Mood Description: Apprehensive Affect Description: Blunted Patient Cognition Impaired: No Ability to Follow Directions: Fair Speech Pattern: Soft-Spoken Delusions: Being Controlled and Paranoid Ideation Thought Process: Intact and Distracted Thought Content: positive for Preoccupation and positive for Suicidal Ideation Depressive Symptoms: Increased Anxiety, Diff. Making Decisions, Muscle Tension, Hopelessness, Thoughts of /Suicide and Difficulty Concentrating Abnormal Motor Activity Signs and Symptoms: Hyperactivity and Restlessness Judgement: Fair Assessment & Plan Assessment & Plan (1) Peripheral neuropathy: Status: Acute Code(s): G62.9 - Polyneuropathy, unspecified Assessment and Plan: continue gabapentin - have hospitalist check to see re cellulitis when they see him (2) Opiate dependence: Status: Acute Code(s): F11.20 - Opioid dependence, uncomplicated Assessment and Plan: methadone 130mg dose confirmed (3) Schizoaffective disorder, chronic condition: Status: Acute Code(s): F25.9 - Schizoaffective disorder, unspecified Assessment and Plan: dc depakote clonazepam 0.5mg tid and olanzapine with prn seroquel rxed Patient educated on: medication risk/benefits and medical condition Informed Consent: understands Reason for continued inpatient stay Substantial Risk for: harm to self, rapid decompensation and med/psych decompensation Statement Statement: I have reviewed the history and physical and performed a pertinent examination on my patient. No changes have occurred unless specified. If the History and Physical was not performed prior to admission, the Hospitalist's service will be consulted for completing the admission physical. Time Spent With Patient Time: Total time managing care of this patient today ____ minutes.
[2024-03-27] MEDS: clonazePAM 0.5 MG TABLET PO ×2 (15:22→21:49)
[2024-03-27 19:57] VITALS: RESP 18
[2024-03-28] MEDS: OLANZapine ODT 10 MG TAB.RAPDIS TRANSLINGU (00:07)
[2024-03-28] MEDS: methADONE HCl 20 MG/2 ML ORAL.CONC 130 MG PO (08:03)
[2024-03-28] MEDS: Gabapentin 600 MG TABLET PO ×2 (08:39→15:04)
[2024-03-28] MEDS: clonazePAM 0.5 MG TABLET PO ×2 (08:39→15:10)
--- NOTE | 2024-03-28 09:02 | HO.PSYCHPN ---
Subjective Subjective Date of Service: 03/28/24 Reason For Visit: Crisis Subjective Notes: Section 12B Interim History: Pt has been restless, pacing down the hills. He had difficulty sleeping. He reports hearing voices which he believes are caused by a cult that is performing experiments on him. He reports voices don't stop, don't let him rest. He reports feeling tired. He does report suicidal ideation because voices are not stopping and are torturing him. However, he does not think he needs psychiatric treatment as he believes the problem is this cult. He does report olanzapine he got last night somewhat helpful. we discussed increasing it. Medication Compliance: Yes Side effects from medications: No Attending Groups: No Mental Status Exam Mental Status Exam Narrative: Appearance: wearing hospital gown, poor hygiene, restless Behavior: cooperative Psychomotor: pacing, restless Speech: mostly clear, normal rate/rhythm/volume, spontaneous TP: linear TC: cult messing up with my head doing experiments on him Mood: tired Affect: congruent, restless, anxious and fearful SI: reports suicidal ideation, not as open about plan or intent HI: none VH/AH: several voices Delusions: paranoid delusions of cult doing experiments on his brain and causing him to have voices. Insight/judgment: impaired x 2. Memory/cog: alert, oriented x 3. Diagnostics Vital Signs (24Hr): Vital Signs - 24 hr 03/27/24 19:57 Respiratory Rate 18 BMI result Body Mass Index 20.6 Medications Medications Current Medications Acetaminophen (Acetaminophen 325 Mg Tablet) 650 mg PO Q6H PRN PRN Reason: Headache/Pain Mild Scale (1-3) Al Hydroxide/Mg Hydroxide (Magnesium Hydrox/Alum Hydrox 30 Ml Oral.Susp) 30 ml PO Q6H PRN PRN Reason: Heartburn/Nausea Clonazepam (Clonazepam 0.5 Mg Tablet) 0.5 mg PO TID [facility] Last Admin: 03/28/24 08:39 Dose: 0.5 mg Fluoxetine HCl (Fluoxetine Hcl 10 Mg Capsule) 10 mg PO DAILY [facility] Last Admin: 03/28/24 08:40 Dose: Not Given Gabapentin (Gabapentin 600 Mg Tablet) 600 mg PO TID [facility] Last Admin: 03/28/24 08:39 Dose: 600 mg Hydroxyzine HCl (Hydroxyzine Hcl 25 Mg Tablet) 25 mg PO Q6H PRN PRN Reason: Anxiety Magnesium Hydroxide (Milk Of Magnesia 30 Ml Oral.Susp) 30 ml PO DAILY PRN PRN Reason: Constipation Methadone HCl (Methadone Hcl 20 Mg/2 Ml Oral.Conc) 130 mg PO DAILY [facility] Last Admin: 03/28/24 08:03 Dose: 130 mg Nicotine (Nicotine 14 Mg Patch.Td24) 14 mg TRANSDERMA DAILY [facility] Last Admin: 03/28/24 08:40 Dose: Not Given Nicotine Polacrilex (Nicotine Polacrilex 2 Mg Gum) 2 mg BUCCAL Q1H PRN PRN Reason: Nicotine Cravings Nicotine Polacrilex (Nicotine Polacrilex 2 Mg Gum) 4 mg BUCCAL Q2H PRN PRN Reason: nicotine cravings Last Admin: 03/27/24 21:49 Dose: 4 mg Nystatin (Nystatin Cream 15 Gm Tube) 1 appl TOPICAL BID [facility]; Protocol Last Admin: 03/28/24 08:40 Dose: Not Given Olanzapine (Olanzapine Odt 10 Mg Tab.Rapdis) 10 mg TRANSLINGU BEDTIME [facility] Last Admin: 03/28/24 00:07 Dose: 10 mg Quetiapine Fumarate (Quetiapine Fumarate 200 Mg Tablet) 200 mg PO BEDTIME MRX1 PRN PRN Reason: insomnia Allergies Allergies Allergy/AdvReac Type Severity Reaction Status Date / Time haloperidol [From Haldol] AdvReac Severe tongue Verified 07/13/23 14:18 swelling Assessment & Plan Assessment & Plan (1) Opiate dependence: Status: Acute Code(s): F11.20 - Opioid dependence, uncomplicated (2) Schizoaffective disorder, chronic condition: Status: Deleted Code(s): F25.9 - Schizoaffective disorder, unspecified (3) Schizophrenia, paranoid, chronic with acute exacerbation: Status: Acute Code(s): F20.0 - Paranoid schizophrenia Plan Pt is a 33-year-old male with a PMH significant for?opioid dependence on methadone, hx of IVDU, peripheral neuropathy, hx of osteomyelitis of great toe, anxiety, and depression who is admitted to psychiatry unit for auditory hallucinations and suicidal ideations. Apparently these have been worsening for the past few weeks, though he denies any specific plan. Reported having bugs and side of his head that would crawl in and out of his eyes and that he had people running around side of his head. PLAN 03/28- increase olanzapine to 10mg po BID. Olanzapine 10mg po q6h prn agitation, clonazepam 0.5mg po BID, in addition to clonazepam 0.5mg po BID PRN severe anxious mood s/s to acute psychosis. Reason for continued inpatient stay Substantial Risk for: harm to self and inability to function Time Spent With Patient Time: Total time managing care of this patient today ____ minutes.
[2024-03-28] MEDS: Nicotine Polacrilex 2 MG GUM 4 MG BUCCAL ×2 (10:09→19:01)
--- NOTE | 2024-03-28 16:52 | PM.EVENT ---
Event Note Date of Service: 03/28/24 Event Note: Pt has been seen on 03/26, and again on 03/27 with concrn for cellulitis addressed on 03/27, seen again today, exam similar to pictures from yesterday and no any additional findings suggestive of acute cellulitis.. See full note from Uriel Burger from 03/26 and addendum from 03/27 for details Time Spent With Patient Time: Total time managing care of this patient today ____ minutes.
[2024-03-28 22:20] VITALS: RESP 16
[2024-03-29] MEDS: clonazePAM 0.5 MG TABLET PO ×5 (00:49→20:22)
[2024-03-29] MEDS: Nicotine Polacrilex 2 MG GUM 4 MG BUCCAL ×5 (06:37→21:46)
[2024-03-29] MEDS: methADONE HCl 20 MG/2 ML ORAL.CONC 130 MG PO (08:05)
[2024-03-29] MEDS: Gabapentin 600 MG TABLET PO ×3 (08:57→20:22)
--- NOTE | 2024-03-29 15:30 | PC.NURSE ---
TRAVIS signed and accepted by Dr. Carvajal
--- NOTE | 2024-03-29 16:17 | P.PNPSI_ITS ---
Subjective Subjective Date of Service: 03/29/24 Reason For Visit: Crisis Interim History: will take zyprexa 20 QHS rather than 10 BID. wants to sign CV. asks for ensure TID. per staff, 12b up tomorrow. making hand gestures, refusing medications. c/o vomiting, up and down overnight. slept about 4 hours. signed CV today. Mental Status Exam Mental Status Exam Narrative: Appearance: wearing personal clothes, poor hygiene, restless Behavior: cooperative Psychomotor: pacing, restless Speech: mostly clear, normal rate/rhythm/volume, spontaneous TP: linear TC: Tx Mood: not assessed Affect: anxious SI: none expressed HI: none expressed VH/AH: none expressed Delusions: none expressed Insight/judgment: impaired x 2. Memory/cog: alert, oriented x 3. Diagnostics Vital Signs (24Hr): Vital Signs - 24 hr 03/28/24 22:20 Respiratory Rate 16 BMI result Body Mass Index 20.6 Medications Medications Current Medications Acetaminophen (Acetaminophen 325 Mg Tablet) 650 mg PO Q6H PRN PRN Reason: Headache/Pain Mild Scale (1-3) Al Hydroxide/Mg Hydroxide (Magnesium Hydrox/Alum Hydrox 30 Ml Oral.Susp) 30 ml PO Q6H PRN PRN Reason: Heartburn/Nausea Clonazepam (Clonazepam 0.5 Mg Tablet) 0.5 mg PO BID [facility] Last Admin: 03/29/24 08:57 Dose: 0.5 mg Clonazepam (Clonazepam 0.5 Mg Tablet) 0.5 mg PO BID PRN PRN Reason: moderate/severe anxiety/sleep Last Admin: 03/29/24 15:31 Dose: 0.5 mg Gabapentin (Gabapentin 600 Mg Tablet) 600 mg PO TID [facility] Last Admin: 03/29/24 15:32 Dose: 600 mg Magnesium Hydroxide (Milk Of Magnesia 30 Ml Oral.Susp) 30 ml PO DAILY PRN PRN Reason: Constipation Methadone HCl (Methadone Hcl 20 Mg/2 Ml Oral.Conc) 130 mg PO DAILY [facility] Last Admin: 03/29/24 08:05 Dose: 130 mg Nicotine (Nicotine 14 Mg Patch.Td24) 14 mg TRANSDERMA DAILY [facility] Last Admin: 03/29/24 09:35 Dose: Not Given Nicotine Polacrilex (Nicotine Polacrilex 2 Mg Gum) 2 mg BUCCAL Q1H PRN PRN Reason: Nicotine Cravings Nicotine Polacrilex (Nicotine Polacrilex 2 Mg Gum) 4 mg BUCCAL Q2H PRN PRN Reason: nicotine cravings Last Admin: 03/29/24 15:35 Dose: 4 mg Nystatin (Nystatin Cream 15 Gm Tube) 1 appl TOPICAL BID [facility]; Protocol Last Admin: 03/29/24 09:35 Dose: Not Given Olanzapine (Olanzapine Odt 10 Mg Tab.Rapdis) 10 mg TRANSLINGU TID PRN PRN Reason: agitation Olanzapine (Olanzapine Odt 10 Mg Tab.Rapdis) 20 mg TRANSLINGU BEDTIME [facility] Ondansetron HCl (Ondansetron Odt 4 Mg Tab.Rapdis) 4 mg TRANSLINGU Q6H PRN PRN Reason: Nausea and Vomiting Allergies Allergies Allergy/AdvReac Type Severity Reaction Status Date / Time haloperidol [From Haldol] AdvReac Severe tongue Verified 07/13/23 14:18 swelling Assessment & Plan Assessment & Plan (1) Opiate dependence: Status: Acute Code(s): F11.20 - Opioid dependence, uncomplicated (2) Schizoaffective disorder, chronic condition: Status: Deleted Code(s): F25.9 - Schizoaffective disorder, unspecified (3) Schizophrenia, paranoid, chronic with acute exacerbation: Status: Acute Code(s): F20.0 - Paranoid schizophrenia Plan Pt is a 33-year-old male with a PMH significant for?opioid dependence on methadone, hx of IVDU, peripheral neuropathy, hx of osteomyelitis of great toe, anxiety, and depression who is admitted to [facility] psychiatry unit for auditory hallucinations and suicidal ideations. Apparently these have been worsening for the past few weeks, though he denies any specific plan. Reported having bugs and side of his head that would crawl in and out of his eyes and that he had people running around side of his head. PLAN 03/28- increase olanzapine to 10mg po BID. Olanzapine 10mg po q6h prn agitation, clonazepam 0.5mg po BID, in addition to clonazepam 0.5mg po BID PRN severe anxious mood s/s to acute psychosis. 03/29: refusing antipsychotics. agrees to take zyprexa 20 tonight rather than 10 BID. signed CV. Reason for continued inpatient stay Substantial Risk for: harm to self and inability to function Time Spent With Patient Time: Total time managing care of this patient today _25___ minutes.
[2024-03-29] MEDS: OLANZapine ODT 10 MG TAB.RAPDIS 20 MG TRANSLINGU (21:43)
[2024-03-30] MEDS: clonazePAM 0.5 MG TABLET PO ×4 (07:08→20:30)
[2024-03-30] MEDS: Nicotine Polacrilex 2 MG GUM 4 MG BUCCAL ×3 (07:09→20:31)
[2024-03-30] MEDS: methADONE HCl 20 MG/2 ML ORAL.CONC 130 MG PO (08:16)
[2024-03-30] MEDS: Gabapentin 600 MG TABLET PO ×3 (08:19→20:29)
--- NOTE | 2024-03-30 16:24 | HO.PSYCHPN ---
Subjective Subjective Date of Service: 03/30/24 Reason For Visit: Crisis Interim History: calm, cooperative, pleasant. took meds last night, no probs. just needs time, feels meds are the right regimen. per staff, denies SI/HI. slept 7 hours. took HS zyprexa. Mental Status Exam Mental Status Exam Narrative: Appearance: wearing hospital attire, poor hygiene, restless Behavior: cooperative Psychomotor: pacing, restless Speech: mostly clear, normal rate/rhythm/volume, spontaneous TP: linear TC: Tx Mood: not assessed Affect: anxious SI: none expressed HI: none expressed VH/AH: none expressed Delusions: none expressed Insight/judgment: impaired x 2. Memory/cog: alert, oriented x 3. Diagnostics Vital Signs (24Hr): BMI result Body Mass Index 20.6 Medications Medications Current Medications Acetaminophen (Acetaminophen 325 Mg Tablet) 650 mg PO Q6H PRN PRN Reason: Headache/Pain Mild Scale (1-3) Al Hydroxide/Mg Hydroxide (Magnesium Hydrox/Alum Hydrox 30 Ml Oral.Susp) 30 ml PO Q6H PRN PRN Reason: Heartburn/Nausea Clonazepam (Clonazepam 0.5 Mg Tablet) 0.5 mg PO BID [facility] Last Admin: 03/30/24 08:19 Dose: 0.5 mg Clonazepam (Clonazepam 0.5 Mg Tablet) 0.5 mg PO BID PRN PRN Reason: moderate/severe anxiety/sleep Last Admin: 03/30/24 14:00 Dose: 0.5 mg Gabapentin (Gabapentin 600 Mg Tablet) 600 mg PO TID [facility] Last Admin: 03/30/24 14:00 Dose: 600 mg Magnesium Hydroxide (Milk Of Magnesia 30 Ml Oral.Susp) 30 ml PO DAILY PRN PRN Reason: Constipation Methadone HCl (Methadone Hcl 20 Mg/2 Ml Oral.Conc) 130 mg PO DAILY [facility] Last Admin: 03/30/24 08:16 Dose: 130 mg Nicotine (Nicotine 14 Mg Patch.Td24) 14 mg TRANSDERMA DAILY [facility] Last Admin: 03/30/24 08:35 Dose: Not Given Nicotine Polacrilex (Nicotine Polacrilex 2 Mg Gum) 2 mg BUCCAL Q1H PRN PRN Reason: Nicotine Cravings Nicotine Polacrilex (Nicotine Polacrilex 2 Mg Gum) 4 mg BUCCAL Q2H PRN PRN Reason: nicotine cravings Last Admin: 03/30/24 14:01 Dose: 4 mg Nystatin (Nystatin Cream 15 Gm Tube) 1 appl TOPICAL BID [facility]; Protocol Last Admin: 03/30/24 08:36 Dose: Not Given Olanzapine (Olanzapine Odt 10 Mg Tab.Rapdis) 10 mg TRANSLINGU TID PRN PRN Reason: agitation Olanzapine (Olanzapine Odt 10 Mg Tab.Rapdis) 20 mg TRANSLINGU BEDTIME [facility] Last Admin: 03/29/24 21:43 Dose: 20 mg Ondansetron HCl (Ondansetron Odt 4 Mg Tab.Rapdis) 4 mg TRANSLINGU Q6H PRN PRN Reason: Nausea and Vomiting Allergies Allergies Allergy/AdvReac Type Severity Reaction Status Date / Time haloperidol [From Haldol] AdvReac Severe tongue Verified 07/13/23 14:18 swelling Assessment & Plan Assessment & Plan (1) Opiate dependence: Status: Acute Code(s): F11.20 - Opioid dependence, uncomplicated (2) Schizoaffective disorder, chronic condition: Status: Deleted Code(s): F25.9 - Schizoaffective disorder, unspecified (3) Schizophrenia, paranoid, chronic with acute exacerbation: Status: Acute Code(s): F20.0 - Paranoid schizophrenia Plan Pt is a 33-year-old male with a PMH significant for?opioid dependence on methadone, hx of IVDU, peripheral neuropathy, hx of osteomyelitis of great toe, anxiety, and depression who is admitted to [facility] psychiatry unit for auditory hallucinations and suicidal ideations. Apparently these have been worsening for the past few weeks, though he denies any specific plan. Reported having bugs and side of his head that would crawl in and out of his eyes and that he had people running around side of his head. PLAN 03/28- increase olanzapine to 10mg po BID. Olanzapine 10mg po q6h prn agitation, clonazepam 0.5mg po BID, in addition to clonazepam 0.5mg po BID PRN severe anxious mood s/s to acute psychosis. 03/29: refusing antipsychotics. agrees to take zyprexa 20 tonight rather than 10 BID. signed CV. 03/30: took meds last night. pacing, hand gestures. also greeted MD in [place]. no complaints or requests. likes regimen, just needs time, he says. Reason for continued inpatient stay Substantial Risk for: inability to function and rapid decompensation Time Spent With Patient Time: Total time managing care of this patient today __25__ minutes.
[2024-03-31] MEDS: OLANZapine ODT 10 MG TAB.RAPDIS TRANSLINGU (04:50)
[2024-03-31] MEDS: Nicotine Polacrilex 2 MG GUM 4 MG BUCCAL ×3 (04:50→18:54)
[2024-03-31] MEDS: Nicotine Polacrilex 2 MG GUM BUCCAL (06:19)
[2024-03-31] MEDS: clonazePAM 0.5 MG TABLET PO ×4 (06:19→20:33)
[2024-03-31 07:00] VITALS: BMI 20.8
[2024-03-31] MEDS: methADONE HCl 20 MG/2 ML ORAL.CONC 130 MG PO (07:52)
[2024-03-31] MEDS: Gabapentin 600 MG TABLET PO ×3 (08:33→20:34)
--- NOTE | 2024-03-31 13:26 | HO.WOUND ---
Wound Consult 33yr old?Male admitted to [facility] on 03/26/24 to the Behavioral Health Unit - See progress notes and H&P for detailed history.? Wound consult placed for Bilateral Feet.? Chart review reveals patient was seen twice over the past week by hospitalist team for bilaterlal feet and no concerns noted to feet for fungus or cellulitis. The patient is well known to this advertising copywriter and was been seen in the past for foot wounds. Photos uploaded to chart review wounds remain - appear stable in photo review - currently at this time per TT with direct care nurse the patient is refusing treatment for the feet and denies discomfort. Will defer assessment by inpatient nurse at this time. Will monitor chart will attempt consultation in future. Direct care nurse informed to contact inpt wound care nurse if concerns develop.
--- NOTE | 2024-03-31 13:39 | HO.PSYCHPN ---
Subjective Subjective Date of Service: 03/31/24 Reason For Visit: Crisis Subjective Notes: Conditional Voluntary Interim History: Reviewed with Dr. Marie. Observed continuously pacing hallway and responding to internal stimuli. Keeping to self. Not attending groups. Per nursing, patient slept 7 hours last night. Patient reports not feeling anxious due to the medication taking away the anxiety . He does report auditory hallucinations; patient stated, the voices tell me they put a microchip in my head and they will turn me into a robot. They say there is a secret war going on . Patient denies SI/HI/VH. Medication Compliance: Intermittent Side effects from medications: No Attending Groups: No Review of Systems Constitutional: Reports as per HPI Eyes: Reports as per HPI Reports as per HPI Cardiovascular: Reports as per HPI Respiratory: Reports as per HPI Gastrointestinal: Reports as per HPI Genitourinary: Reports as per HPI Musculoskeletal: Reports as per HPI Skin/Breast: Reports as per HPI Reports as per HPI Psychiatric: Reports as per HPI Endocrine: Reports as per HPI Hematologic/Lymphatic: Reports as per HPI Allergic/Immunologic: Reports as per HPI Mental Status Exam Mental Status Exam Patient Appearance: Disheveled Patient Orientation: Person, Place and Situation Level of Consciousness: Awake Patient Behavior: Guarded and Anxious Mood Description: Calm Affect Description: Blunted Ability to Follow Directions: Good Speech Pattern: Soft-Spoken Hallucinations: Auditory Thought Process: Linear Judgement: Poor Diagnostics Vital Signs (24Hr): BMI result Body Mass Index 20.8 Medications Medications Current Medications Acetaminophen (Acetaminophen 325 Mg Tablet) 650 mg PO Q6H PRN PRN Reason: Headache/Pain Mild Scale (1-3) Al Hydroxide/Mg Hydroxide (Magnesium Hydrox/Alum Hydrox 30 Ml Oral.Susp) 30 ml PO Q6H PRN PRN Reason: Heartburn/Nausea Clonazepam (Clonazepam 0.5 Mg Tablet) 0.5 mg PO BID [facility] Last Admin: 03/31/24 08:33 Dose: 0.5 mg Clonazepam (Clonazepam 0.5 Mg Tablet) 0.5 mg PO BID PRN PRN Reason: moderate/severe anxiety/sleep Last Admin: 03/31/24 06:19 Dose: 0.5 mg Gabapentin (Gabapentin 600 Mg Tablet) 600 mg PO TID [facility] Last Admin: 03/31/24 08:33 Dose: 600 mg Magnesium Hydroxide (Milk Of Magnesia 30 Ml Oral.Susp) 30 ml PO DAILY PRN PRN Reason: Constipation Methadone HCl (Methadone Hcl 20 Mg/2 Ml Oral.Conc) 130 mg PO DAILY [facility] Last Admin: 03/31/24 07:52 Dose: 130 mg Nicotine (Nicotine 14 Mg Patch.Td24) 14 mg TRANSDERMA DAILY [facility] Last Admin: 03/31/24 08:35 Dose: Not Given Nicotine Polacrilex (Nicotine Polacrilex 2 Mg Gum) 2 mg BUCCAL Q1H PRN PRN Reason: Nicotine Cravings Last Admin: 03/31/24 06:19 Dose: 2 mg Nicotine Polacrilex (Nicotine Polacrilex 2 Mg Gum) 4 mg BUCCAL Q2H PRN PRN Reason: nicotine cravings Last Admin: 03/31/24 04:50 Dose: 4 mg Nystatin (Nystatin Cream 15 Gm Tube) 1 appl TOPICAL BID [facility]; Protocol Last Admin: 03/31/24 08:35 Dose: Not Given Olanzapine (Olanzapine Odt 10 Mg Tab.Rapdis) 10 mg TRANSLINGU TID PRN PRN Reason: agitation Last Admin: 03/31/24 04:50 Dose: 10 mg Olanzapine (Olanzapine Odt 10 Mg Tab.Rapdis) 20 mg TRANSLINGU BEDTIME [facility] Last Admin: 03/31/24 00:04 Dose: Not Given Ondansetron HCl (Ondansetron Odt 4 Mg Tab.Rapdis) 4 mg TRANSLINGU Q6H PRN PRN Reason: Nausea and Vomiting Allergies Allergies Allergy/AdvReac Type Severity Reaction Status Date / Time haloperidol [From Haldol] AdvReac Severe tongue Verified 07/13/23 14:18 swelling Assessment & Plan Assessment & Plan (1) Opiate dependence: Status: Acute Code(s): F11.20 - Opioid dependence, uncomplicated (2) Schizoaffective disorder, chronic condition: Status: Deleted Code(s): F25.9 - Schizoaffective disorder, unspecified (3) Schizophrenia, paranoid, chronic with acute exacerbation: Status: Acute Code(s): F20.0 - Paranoid schizophrenia Plan Pt is a 33-year-old male with a PMH significant for?opioid dependence on methadone, hx of IVDU, peripheral neuropathy, hx of osteomyelitis of great toe, anxiety, and depression who is admitted to psychiatry unit for auditory hallucinations and suicidal ideations. Apparently these have been worsening for the past few weeks, though he denies any specific plan. Reported having bugs and side of his head that would crawl in and out of his eyes and that he had people running around side of his head. PLAN 03/28- increase olanzapine to 10mg po BID. Olanzapine 10mg po q6h prn agitation, clonazepam 0.5mg po BID, in addition to clonazepam 0.5mg po BID PRN severe anxious mood s/s to acute psychosis. 03/29: refusing antipsychotics. agrees to take zyprexa 20 tonight rather than 10 BID. signed CV. 03/30: took meds last night. pacing, hand gestures. also greeted MD in [place]. no complaints or requests. likes regimen, just needs time, he says. 03/31: Continue current treatment plan. Patient educated on: diagnosis and medication risk/benefits Reason for continued inpatient stay Substantial Risk for: med/psych decompensation Time Spent With Patient Time: Total time managing care of this patient today _20___ minutes.
[2024-04-01] MEDS: OLANZapine ODT 10 MG TAB.RAPDIS 20 MG TRANSLINGU (00:39)
[2024-04-01] MEDS: Nicotine Polacrilex 2 MG GUM 4 MG BUCCAL ×6 (00:39→20:02)
[2024-04-01] MEDS: clonazePAM 0.5 MG TABLET PO ×4 (06:34→20:02)
[2024-04-01 08:00] VITALS: RESP 18
[2024-04-01] MEDS: methADONE HCl 20 MG/2 ML ORAL.CONC 130 MG PO (08:11)
[2024-04-01] MEDS: Nicotine 14 MG PATCH.TD24 TRANSDERMA (08:36)
[2024-04-01] MEDS: Gabapentin 600 MG TABLET PO ×2 (08:36→14:25)
--- NOTE | 2024-04-01 15:08 | HO.PSYCHPN ---
Subjective Subjective Date of Service: 04/01/24 Reason For Visit: Crisis Interim History: pacing, lips moving. pleasant on interaction, however. no complaints or requests. per staff, +AH. pacing.self-dialoguing. taking meds. visible, pacing. slept 7 hours. Mental Status Exam Mental Status Exam Narrative: Appearance: wearing hospital attire, poor hygiene Behavior: cooperative Psychomotor: pacing, restless Speech: mostly clear, normal rate/rhythm/volume, spontaneous TP: linear TC: Tx Mood: not assessed Affect: constricted, normo-intense, non-labile SI: none expressed HI: none expressed VH/AH: none expressed Delusions: none expressed Insight/judgment: impaired x 2. Memory/cog: alert, oriented x 3. Diagnostics Vital Signs (24Hr): Vital Signs - 24 hr 04/01/24 08:00 Respiratory Rate 18 BMI result Body Mass Index 20.8 Medications Medications Current Medications Acetaminophen (Acetaminophen 325 Mg Tablet) 650 mg PO Q6H PRN PRN Reason: Headache/Pain Mild Scale (1-3) Al Hydroxide/Mg Hydroxide (Magnesium Hydrox/Alum Hydrox 30 Ml Oral.Susp) 30 ml PO Q6H PRN PRN Reason: Heartburn/Nausea Clonazepam (Clonazepam 0.5 Mg Tablet) 0.5 mg PO BID [facility] Last Admin: 04/01/24 08:36 Dose: 0.5 mg Clonazepam (Clonazepam 0.5 Mg Tablet) 0.5 mg PO BID PRN PRN Reason: moderate/severe anxiety/sleep Last Admin: 04/01/24 12:16 Dose: 0.5 mg Gabapentin (Gabapentin 600 Mg Tablet) 600 mg PO TID [facility] Last Admin: 04/01/24 14:25 Dose: 600 mg Magnesium Hydroxide (Milk Of Magnesia 30 Ml Oral.Susp) 30 ml PO DAILY PRN PRN Reason: Constipation Methadone HCl (Methadone Hcl 20 Mg/2 Ml Oral.Conc) 130 mg PO DAILY [facility] Last Admin: 04/01/24 08:11 Dose: 130 mg Nicotine (Nicotine 14 Mg Patch.Td24) 14 mg TRANSDERMA DAILY [facility] Last Admin: 04/01/24 08:36 Dose: 14 mg Nicotine Polacrilex (Nicotine Polacrilex 2 Mg Gum) 2 mg BUCCAL Q1H PRN PRN Reason: Nicotine Cravings Last Admin: 03/31/24 06:19 Dose: 2 mg Nicotine Polacrilex (Nicotine Polacrilex 2 Mg Gum) 4 mg BUCCAL Q2H PRN PRN Reason: nicotine cravings Last Admin: 04/01/24 14:26 Dose: 4 mg Nystatin (Nystatin Cream 15 Gm Tube) 1 appl TOPICAL BID [facility]; Protocol Last Admin: 04/01/24 08:41 Dose: Not Given Olanzapine (Olanzapine Odt 10 Mg Tab.Rapdis) 10 mg TRANSLINGU TID PRN PRN Reason: agitation Last Admin: 03/31/24 04:50 Dose: 10 mg Olanzapine (Olanzapine Odt 10 Mg Tab.Rapdis) 20 mg TRANSLINGU BEDTIME [facility] Last Admin: 04/01/24 00:39 Dose: 20 mg Ondansetron HCl (Ondansetron Odt 4 Mg Tab.Rapdis) 4 mg TRANSLINGU Q6H PRN PRN Reason: Nausea and Vomiting Allergies Allergies Allergy/AdvReac Type Severity Reaction Status Date / Time haloperidol [From Haldol] AdvReac Severe tongue Verified 07/13/23 14:18 swelling Assessment & Plan Assessment & Plan (1) Opiate dependence: Status: Acute Code(s): F11.20 - Opioid dependence, uncomplicated (2) Schizoaffective disorder, chronic condition: Status: Deleted Code(s): F25.9 - Schizoaffective disorder, unspecified (3) Schizophrenia, paranoid, chronic with acute exacerbation: Status: Acute Code(s): F20.0 - Paranoid schizophrenia Plan Pt is a 33-year-old male with a PMH significant for?opioid dependence on methadone, hx of IVDU, peripheral neuropathy, hx of osteomyelitis of great toe, anxiety, and depression who is admitted to psychiatry unit for auditory hallucinations and suicidal ideations. Apparently these have been worsening for the past few weeks, though he denies any specific plan. Reported having bugs and side of his head that would crawl in and out of his eyes and that he had people running around side of his head. PLAN 03/28- increase olanzapine to 10mg po BID. Olanzapine 10mg po q6h prn agitation, clonazepam 0.5mg po BID, in addition to clonazepam 0.5mg po BID PRN severe anxious mood s/s to acute psychosis. 03/29: refusing antipsychotics. agrees to take zyprexa 20 tonight rather than 10 BID. signed CV. 03/30: took meds last night. pacing, hand gestures. also greeted MD in [place]. no complaints or requests. likes regimen, just needs time, he says. 03/31: Continue current treatment plan. 04/01: stable presentation. continue current mgmt. Reason for continued inpatient stay Substantial Risk for: harm to self and inability to function Time Spent With Patient Time: Total time managing care of this patient today ____ minutes.
[2024-04-01 20:16] VITALS: RESP 18
--- NOTE | 2024-04-01 23:57 | PC.NURSE ---
Pt requested to take only scheduled clonazepam around 1999, stating that he would take the remaining meds later in the evening. Pt paced in the hallway for some time, continuing to decline taking the other meds until later. He eventually fell asleep and was unable to be woken, therefore not receiving the scheduled gabapentin, zydis or nystatin cream. Pt remained in bed and appeared to sleep the remainder of the shift.
[2024-04-02] MEDS: Nicotine Polacrilex 2 MG GUM 4 MG BUCCAL ×3 (06:49→20:05)
[2024-04-02] MEDS: clonazePAM 0.5 MG TABLET PO ×3 (06:51→20:02)
[2024-04-02 08:00] VITALS: RESP 16
[2024-04-02] MEDS: methADONE HCl 20 MG/2 ML ORAL.CONC 130 MG PO (08:13)
[2024-04-02] MEDS: Gabapentin 600 MG TABLET PO ×2 (08:58→14:17)
--- NOTE | 2024-04-02 09:03 | HO.PSYCHPN ---
Subjective Subjective Date of Service: 04/02/24 Reason For Visit: Crisis Interim History: Self dialogue while pacing the halls continue. He is able to stop and talk with this racebook writer and at first says he would consider increase in Zyprexa but then declines saying he is doing well and doesn't want to change medications at this time. He is pleasant and respectful on interaction. per staff, +AH. taking meds. sleep is good. Review of Systems Review of Systems fungal infection of feet, neuropathy, and ? red area could be skin infection Constitutional: Reports as per HPI Eyes: Reports as per HPI Reports as per HPI Cardiovascular: Reports as per HPI Respiratory: Reports as per HPI Gastrointestinal: Reports as per HPI Genitourinary: Reports as per HPI Musculoskeletal: Reports as per HPI Skin/Breast: Reports as per HPI Reports as per HPI Psychiatric: Reports as per HPI Endocrine: Reports as per HPI Hematologic/Lymphatic: Reports as per HPI Allergic/Immunologic: Reports as per HPI Mental Status Exam Mental Status Exam Narrative: Appearance: wearing hospital attire, poor hygiene Behavior: cooperative Psychomotor: pacing, restless Speech: mostly clear, normal rate/rhythm/volume, spontaneous TP: linear TC: Tx Mood: not assessed Affect: constricted, normo-intense, non-labile SI: none expressed HI: none expressed VH/AH: none expressed Delusions: none expressed Insight/judgment: impaired x 2. Memory/cog: alert, oriented x 3. Patient Appearance: Disheveled Patient Orientation: Person, Place and Situation Level of Consciousness: Awake Patient Behavior: Guarded and Anxious Mood Description: Calm Affect Description: Blunted Patient Cognition Impaired: No Ability to Follow Directions: Good Speech Pattern: Soft-Spoken Diagnostics Vital Signs (24Hr): Vital Signs - 24 hr 04/01/24 20:16 04/02/24 08:00 Respiratory Rate 18 16 BMI result Body Mass Index 20.8 Medications Medications Current Medications Acetaminophen (Acetaminophen 325 Mg Tablet) 650 mg PO Q6H PRN PRN Reason: Headache/Pain Mild Scale (1-3) Al Hydroxide/Mg Hydroxide (Magnesium Hydrox/Alum Hydrox 30 Ml Oral.Susp) 30 ml PO Q6H PRN PRN Reason: Heartburn/Nausea Clonazepam (Clonazepam 0.5 Mg Tablet) 0.5 mg PO BID [facility] Last Admin: 04/02/24 09:00 Dose: 0.5 mg Clonazepam (Clonazepam 0.5 Mg Tablet) 0.5 mg PO BID PRN PRN Reason: moderate/severe anxiety/sleep Last Admin: 04/02/24 06:51 Dose: 0.5 mg Gabapentin (Gabapentin 600 Mg Tablet) 600 mg PO TID [facility] Last Admin: 04/02/24 08:58 Dose: 600 mg Magnesium Hydroxide (Milk Of Magnesia 30 Ml Oral.Susp) 30 ml PO DAILY PRN PRN Reason: Constipation Methadone HCl (Methadone Hcl 20 Mg/2 Ml Oral.Conc) 130 mg PO DAILY [facility] Last Admin: 04/02/24 08:13 Dose: 130 mg Nicotine (Nicotine 14 Mg Patch.Td24) 14 mg TRANSDERMA DAILY [facility] Last Admin: 04/02/24 09:00 Dose: Not Given Nicotine Polacrilex (Nicotine Polacrilex 2 Mg Gum) 2 mg BUCCAL Q1H PRN PRN Reason: Nicotine Cravings Last Admin: 03/31/24 06:19 Dose: 2 mg Nicotine Polacrilex (Nicotine Polacrilex 2 Mg Gum) 4 mg BUCCAL Q2H PRN PRN Reason: nicotine cravings Last Admin: 04/02/24 06:49 Dose: 4 mg Nystatin (Nystatin Cream 15 Gm Tube) 1 appl TOPICAL BID [facility]; Protocol Last Admin: 04/02/24 08:58 Dose: Not Given Olanzapine (Olanzapine Odt 10 Mg Tab.Rapdis) 10 mg TRANSLINGU TID PRN PRN Reason: agitation Last Admin: 03/31/24 04:50 Dose: 10 mg Olanzapine (Olanzapine Odt 10 Mg Tab.Rapdis) 20 mg TRANSLINGU BEDTIME [facility] Last Admin: 04/01/24 23:52 Dose: Not Given Ondansetron HCl (Ondansetron Odt 4 Mg Tab.Rapdis) 4 mg TRANSLINGU Q6H PRN PRN Reason: Nausea and Vomiting Allergies Allergies Allergy/AdvReac Type Severity Reaction Status Date / Time haloperidol [From Haldol] AdvReac Severe tongue Verified 07/13/23 14:18 swelling Assessment & Plan Assessment & Plan (1) Opiate dependence: Status: Acute Code(s): F11.20 - Opioid dependence, uncomplicated (2) Schizophrenia, paranoid, chronic with acute exacerbation: Status: Acute Code(s): F20.0 - Paranoid schizophrenia Plan Pt is a 33-year-old male with a PMH significant for?opioid dependence on methadone, hx of IVDU, peripheral neuropathy, hx of osteomyelitis of great toe, anxiety, and depression who is admitted to [facility] psychiatry unit for auditory hallucinations and suicidal ideations. Apparently these have been worsening for the past few weeks, though he denies any specific plan. Reported having bugs and side of his head that would crawl in and out of his eyes and that he had people running around side of his head. PLAN 03/28- increase olanzapine to 10mg po BID. Olanzapine 10mg po q6h prn agitation, clonazepam 0.5mg po BID, in addition to clonazepam 0.5mg po BID PRN severe anxious mood s/s to acute psychosis. 03/29: refusing antipsychotics. agrees to take zyprexa 20 tonight rather than 10 BID. signed CV. 03/30: took meds last night. pacing, hand gestures. also greeted MD in [place]. no complaints or requests. likes regimen, just needs time, he says. 03/31: Continue current treatment plan. 04/01: stable presentation. continue current mgmt. 04/02: continue current management and treatment plan. Reason for continued inpatient stay Substantial Risk for: inability to function and rapid decompensation Time Spent With Patient Time: Total time managing care of this patient today ____ minutes.
[2024-04-02 20:05] VITALS: RESP 18
[2024-04-03] MEDS: methADONE HCl 20 MG/2 ML ORAL.CONC 130 MG PO (07:44)
[2024-04-03 07:49] VITALS: RESP 16
[2024-04-03] MEDS: clonazePAM 0.5 MG TABLET PO ×3 (09:38→21:10)
[2024-04-03] MEDS: Nicotine Polacrilex 2 MG GUM 4 MG BUCCAL ×5 (09:38→21:10)
--- NOTE | 2024-04-03 11:35 | HO.PSYCHPN ---
Subjective Subjective Date of Service: 04/03/24 Reason For Visit: Crisis Interim History: Patient refused Zydis yesterday saying his stomach was upset. Says he will take Zydis tonight. Says he is doing well. He continues to self dialogue while pacing the halls and is observed doing the same. 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 per staff, +AH. sleep is good. Review of Systems Review of Systems fungal infection of feet, neuropathy, and ? red area could be skin infection Constitutional: Reports as per HPI Eyes: Reports as per HPI Reports as per HPI Cardiovascular: Reports as per HPI Respiratory: Reports as per HPI Gastrointestinal: Reports as per HPI Genitourinary: Reports as per HPI Musculoskeletal: Reports as per HPI Skin/Breast: Reports as per HPI Reports as per HPI Psychiatric: Reports as per HPI Endocrine: Reports as per HPI Hematologic/Lymphatic: Reports as per HPI Allergic/Immunologic: Reports as per HPI Mental Status Exam Mental Status Exam Narrative: Appearance: wearing hospital attire, poor hygiene Behavior: cooperative Psychomotor: pacing, restless Speech: mostly clear, normal rate/rhythm/volume, spontaneous TP: linear TC: Tx Mood: not assessed Affect: constricted, normo-intense, non-labile SI: none expressed HI: none expressed VH/AH: none expressed Delusions: none expressed Insight/judgment: impaired x 2. Memory/cog: alert, oriented x 3. Patient Appearance: Disheveled Patient Orientation: Person, Place and Situation Level of Consciousness: Awake Patient Behavior: Guarded and Anxious Mood Description: Calm Affect Description: Blunted Patient Cognition Impaired: No Ability to Follow Directions: Good Speech Pattern: Soft-Spoken Diagnostics Vital Signs (24Hr): Vital Signs - 24 hr 04/02/24 20:05 04/03/24 07:49 Respiratory Rate 18 16 BMI result Body Mass Index 20.8 Medications Medications Current Medications Acetaminophen (Acetaminophen 325 Mg Tablet) 650 mg PO Q6H PRN PRN Reason: Headache/Pain Mild Scale (1-3) Al Hydroxide/Mg Hydroxide (Magnesium Hydrox/Alum Hydrox 30 Ml Oral.Susp) 30 ml PO Q6H PRN PRN Reason: Heartburn/Nausea Clonazepam (Clonazepam 0.5 Mg Tablet) 0.5 mg PO BID [facility] Last Admin: 04/03/24 09:38 Dose: 0.5 mg Clonazepam (Clonazepam 0.5 Mg Tablet) 0.5 mg PO BID PRN PRN Reason: moderate/severe anxiety/sleep Last Admin: 04/02/24 06:51 Dose: 0.5 mg Gabapentin (Gabapentin 600 Mg Tablet) 600 mg PO TID [facility] Last Admin: 04/03/24 10:56 Dose: Not Given Magnesium Hydroxide (Milk Of Magnesia 30 Ml Oral.Susp) 30 ml PO DAILY PRN PRN Reason: Constipation Methadone HCl (Methadone Hcl 20 Mg/2 Ml Oral.Conc) 130 mg PO DAILY [facility] Last Admin: 04/03/24 07:44 Dose: 130 mg Nicotine (Nicotine 14 Mg Patch.Td24) 14 mg TRANSDERMA DAILY [facility] Last Admin: 04/03/24 08:39 Dose: Not Given Nicotine Polacrilex (Nicotine Polacrilex 2 Mg Gum) 2 mg BUCCAL Q1H PRN PRN Reason: Nicotine Cravings Last Admin: 03/31/24 06:19 Dose: 2 mg Nicotine Polacrilex (Nicotine Polacrilex 2 Mg Gum) 4 mg BUCCAL Q2H PRN PRN Reason: nicotine cravings Last Admin: 04/03/24 09:38 Dose: 4 mg Nystatin (Nystatin Cream 15 Gm Tube) 1 appl TOPICAL BID [facility]; Protocol Last Admin: 04/03/24 08:39 Dose: Not Given Olanzapine (Olanzapine Odt 10 Mg Tab.Rapdis) 10 mg TRANSLINGU TID PRN PRN Reason: agitation Last Admin: 03/31/24 04:50 Dose: 10 mg Olanzapine (Olanzapine Odt 10 Mg Tab.Rapdis) 20 mg TRANSLINGU BEDTIME [facility] Last Admin: 04/03/24 00:12 Dose: Not Given Ondansetron HCl (Ondansetron Odt 4 Mg Tab.Rapdis) 4 mg TRANSLINGU Q6H PRN PRN Reason: Nausea and Vomiting Allergies Allergies Allergy/AdvReac Type Severity Reaction Status Date / Time haloperidol [From Haldol] AdvReac Severe tongue Verified 07/13/23 14:18 swelling Assessment & Plan Assessment & Plan (1) Opiate dependence: Status: Acute Code(s): F11.20 - Opioid dependence, uncomplicated (2) Schizophrenia, paranoid, chronic with acute exacerbation: Status: Acute Code(s): F20.0 - Paranoid schizophrenia Plan Pt is a 33-year-old male with a PMH significant for?opioid dependence on methadone, hx of IVDU, peripheral neuropathy, hx of osteomyelitis of great toe, anxiety, and depression who is admitted to [facility] psychiatry unit for auditory hallucinations and suicidal ideations. Apparently these have been worsening for the past few weeks, though he denies any specific plan. Reported having bugs and side of his head that would crawl in and out of his eyes and that he had people running around side of his head. PLAN 03/28- increase olanzapine to 10mg po BID. Olanzapine 10mg po q6h prn agitation, clonazepam 0.5mg po BID, in addition to clonazepam 0.5mg po BID PRN severe anxious mood s/s to acute psychosis. 03/29: refusing antipsychotics. agrees to take zyprexa 20 tonight rather than 10 BID. signed CV. 03/30: took meds last night. pacing, hand gestures. also greeted MD in [place]. no complaints or requests. likes regimen, just needs time, he says. 03/31: Continue current treatment plan. 04/01: stable presentation. continue current mgmt. 04/02: continue current management and treatment plan. 04/03: continue current management and treatment plan. Reason for continued inpatient stay Substantial Risk for: inability to function and rapid decompensation Time Spent With Patient Time: Total time managing care of this patient today ____ minutes.
[2024-04-03] MEDS: Gabapentin 600 MG TABLET PO ×2 (12:11→15:51)
[2024-04-03] MEDS: Nicotine Polacrilex 2 MG GUM BUCCAL (16:46)
[2024-04-04] MEDS: clonazePAM 0.5 MG TABLET PO ×4 (07:21→20:18)
[2024-04-04] MEDS: Nicotine Polacrilex 2 MG GUM 4 MG BUCCAL ×4 (07:22→21:14)
[2024-04-04] MEDS: methADONE HCl 20 MG/2 ML ORAL.CONC 130 MG PO (08:09)
[2024-04-04] MEDS: Gabapentin 600 MG TABLET PO ×3 (08:43→21:15)
--- NOTE | 2024-04-04 11:09 | P.PNPSI_ITS ---
Subjective Subjective Date of Service: 04/04/24 Reason For Visit: Crisis Interim History: Patient refused Zydis yesterday again. He doesn't give a clear reason other than saying his stomach is upset as a reason for not taking the Zydis. Denies nausea/vomiting/constipation. Vague abdominal pain. sharp . No exacerbating or relieving factors. Eating and drinking OK. No urinary symptoms. No subjective signs pain. Says he will take Zydis tonight. He continues to self dialogue while pacing the halls constantly and is observed doing the same. 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 per staff, +AH. sleep is good. Review of Systems Review of Systems fungal infection of feet, neuropathy, and ? red area could be skin infection Constitutional: Reports as per HPI Eyes: Reports as per HPI Reports as per HPI Cardiovascular: Reports as per HPI Respiratory: Reports as per HPI Gastrointestinal: Reports as per HPI Genitourinary: Reports as per HPI Musculoskeletal: Reports as per HPI Skin/Breast: Reports as per HPI Reports as per HPI Psychiatric: Reports as per HPI Endocrine: Reports as per HPI Hematologic/Lymphatic: Reports as per HPI Allergic/Immunologic: Reports as per HPI Mental Status Exam Mental Status Exam Narrative: Appearance: wearing hospital attire, poor hygiene Behavior: cooperative Psychomotor: pacing, restless Speech: mostly clear, normal rate/rhythm/volume, spontaneous TP: linear TC: Tx Mood: not assessed Affect: constricted, normo-intense, non-labile SI: none expressed HI: none expressed VH/AH: none expressed Delusions: none expressed Insight/judgment: impaired x 2. Memory/cog: alert, oriented x 3. Patient Appearance: Disheveled Patient Orientation: Person, Place and Situation Level of Consciousness: Awake Patient Behavior: Guarded and Anxious Mood Description: Calm Affect Description: Blunted Patient Cognition Impaired: No Ability to Follow Directions: Good Speech Pattern: Soft-Spoken Diagnostics Vital Signs (24Hr): BMI result Body Mass Index 20.8 Medications Medications Current Medications Acetaminophen (Acetaminophen 325 Mg Tablet) 650 mg PO Q6H PRN PRN Reason: Headache/Pain Mild Scale (1-3) Al Hydroxide/Mg Hydroxide (Magnesium Hydrox/Alum Hydrox 30 Ml Oral.Susp) 30 ml PO Q6H PRN PRN Reason: Heartburn/Nausea Clonazepam (Clonazepam 0.5 Mg Tablet) 0.5 mg PO BID [facility] Last Admin: 04/04/24 08:43 Dose: 0.5 mg Clonazepam (Clonazepam 0.5 Mg Tablet) 0.5 mg PO BID PRN PRN Reason: moderate/severe anxiety/sleep Last Admin: 04/04/24 07:21 Dose: 0.5 mg Gabapentin (Gabapentin 600 Mg Tablet) 600 mg PO TID [facility] Last Admin: 04/04/24 08:43 Dose: 600 mg Magnesium Hydroxide (Milk Of Magnesia 30 Ml Oral.Susp) 30 ml PO DAILY PRN PRN Reason: Constipation Methadone HCl (Methadone Hcl 20 Mg/2 Ml Oral.Conc) 130 mg PO DAILY [facility] Last Admin: 04/04/24 08:09 Dose: 130 mg Nicotine (Nicotine 14 Mg Patch.Td24) 14 mg TRANSDERMA DAILY [facility] Last Admin: 04/04/24 08:51 Dose: Not Given Nicotine Polacrilex (Nicotine Polacrilex 2 Mg Gum) 2 mg BUCCAL Q1H PRN PRN Reason: Nicotine Cravings Last Admin: 04/03/24 16:46 Dose: 2 mg Nicotine Polacrilex (Nicotine Polacrilex 2 Mg Gum) 4 mg BUCCAL Q2H PRN PRN Reason: nicotine cravings Last Admin: 04/04/24 10:05 Dose: 4 mg Nystatin (Nystatin Cream 15 Gm Tube) 1 appl TOPICAL BID [facility]; Protocol Last Admin: 04/04/24 08:51 Dose: Not Given Olanzapine (Olanzapine Odt 10 Mg Tab.Rapdis) 10 mg TRANSLINGU TID PRN PRN Reason: agitation Last Admin: 03/31/24 04:50 Dose: 10 mg Olanzapine (Olanzapine Odt 10 Mg Tab.Rapdis) 20 mg TRANSLINGU BEDTIME [facility] Last Admin: 04/03/24 22:37 Dose: Not Given Ondansetron HCl (Ondansetron Odt 4 Mg Tab.Rapdis) 4 mg TRANSLINGU Q6H PRN PRN Reason: Nausea and Vomiting Allergies Allergies Allergy/AdvReac Type Severity Reaction Status Date / Time haloperidol [From Haldol] AdvReac Severe tongue Verified 07/13/23 14:18 swelling Assessment & Plan Assessment & Plan (1) Opiate dependence: Status: Acute Code(s): F11.20 - Opioid dependence, uncomplicated (2) Schizophrenia, paranoid, chronic with acute exacerbation: Status: Acute Code(s): F20.0 - Paranoid schizophrenia Plan Pt is a 33-year-old male with a PMH significant for?opioid dependence on methadone, hx of IVDU, peripheral neuropathy, hx of osteomyelitis of great toe, anxiety, and depression who is admitted to [facility] psychiat[facility] unit for auditory rainey llucinations and suicidal ideations. Apparently these have been worsening for the past few weeks, though he denies any specific plan. Reported having bugs and side of his head that would crawl in and out of his eyes and that he had people running around side of his head. PLAN 03/28- increase olanzapine to 10mg po BID. Olanzapine 10mg po q6h prn agitation, clonazepam 0.5mg po BID, in addition to clonazepam 0.5mg po BID PRN severe anxious mood s/s to acute psychosis. 03/29: refusing antipsychotics. agrees to take zyprexa 20 tonight rather than 10 BID. signed CV. 03/30: took meds last night. pacing, hand gestures. also greeted [place] in [place]. no complaints or requests. likes regimen, just needs time, he says. 03/31: Continue current treatment plan. 04/01: stable presentation. continue current mgmt. 04/02: continue current management and treatment plan. 04/03: continue current management and treatment plan. 04/04: Encourage adherence. Continue current management and treatment plan. Reason for continued inpatient stay Substantial Risk for: inability to function and rapid decompensation Time Spent With Patient Time: Total time managing care of this patient today ____ minutes.
[2024-04-04] MEDS: Simethicone 80 MG TAB.CHEW PO (18:37)
[2024-04-04] MEDS: OLANZapine ODT 10 MG TAB.RAPDIS 20 MG TRANSLINGU (21:15)
[2024-04-05] MEDS: Nicotine Polacrilex 2 MG GUM 4 MG BUCCAL ×5 (02:04→22:47)
[2024-04-05 07:47] VITALS: RESP 18
[2024-04-05] MEDS: methADONE HCl 20 MG/2 ML ORAL.CONC 130 MG PO (08:08)
[2024-04-05] MEDS: clonazePAM 0.5 MG TABLET PO ×4 (08:11→22:46)
[2024-04-05] MEDS: Gabapentin 600 MG TABLET PO ×3 (08:11→20:16)
--- NOTE | 2024-04-05 21:23 | HO.PSYCHPN ---
Subjective Subjective Date of Service: 04/05/24 Reason For Visit: Crisis Interim History: pacing, self-dialoguing, some hand gestures. engageable, pleasant and polite. refuses clozaril trial. willing to agree to only a modest increase in zyprexa dosing. c/o constipation, agreeable to start senna-docusate. per staff, withdrawn, labile. hypersexual. asked nurse for a hug. pacing, self-dialoguing. refused zyprexa over w/e, took it thursday NOC. Mental Status Exam Mental Status Exam Narrative: Appearance: wearing hospital attire, poor hygiene Behavior: cooperative Psychomotor: pacing, restless Speech: mostly clear, normal rate/rhythm/volume, spontaneous TP: linear TC: Tx Mood: not assessed Affect: constricted, normo-intense, non-labile SI: none expressed HI: none expressed VH/AH: +AH Delusions: none expressed Insight/judgment: impaired x 2. Memory/cog: alert, oriented x 3. Diagnostics Vital Signs (24Hr): Vital Signs - 24 hr 04/05/24 07:47 Respiratory Rate 18 BMI result Body Mass Index 20.8 Medications Medications Current Medications Acetaminophen (Acetaminophen 325 Mg Tablet) 650 mg PO Q6H PRN PRN Reason: Headache/Pain Mild Scale (1-3) Al Hydroxide/Mg Hydroxide (Magnesium Hydrox/Alum Hydrox 30 Ml Oral.Susp) 30 ml PO Q6H PRN PRN Reason: Heartburn/Nausea Clonazepam (Clonazepam 0.5 Mg Tablet) 0.5 mg PO BID [facility] Last Admin: 04/05/24 20:16 Dose: 0.5 mg Clonazepam (Clonazepam 0.5 Mg Tablet) 0.5 mg PO BID PRN PRN Reason: moderate/severe anxiety/sleep Last Admin: 04/05/24 16:39 Dose: 0.5 mg Gabapentin (Gabapentin 600 Mg Tablet) 600 mg PO TID [facility] Last Admin: 04/05/24 20:16 Dose: 600 mg Magnesium Hydroxide (Milk Of Magnesia 30 Ml Oral.Susp) 30 ml PO DAILY PRN PRN Reason: Constipation Methadone HCl (Methadone Hcl 20 Mg/2 Ml Oral.Conc) 130 mg PO DAILY [facility] Last Admin: 04/05/24 08:08 Dose: 130 mg Nicotine (Nicotine 14 Mg Patch.Td24) 14 mg TRANSDERMA DAILY [facility] Last Admin: 04/05/24 08:24 Dose: Not Given Nicotine Polacrilex (Nicotine Polacrilex 2 Mg Gum) 2 mg BUCCAL Q1H PRN PRN Reason: Nicotine Cravings Last Admin: 04/03/24 16:46 Dose: 2 mg Nicotine Polacrilex (Nicotine Polacrilex 2 Mg Gum) 4 mg BUCCAL Q2H PRN PRN Reason: nicotine cravings Last Admin: 04/05/24 20:16 Dose: 4 mg Nystatin (Nystatin Cream 15 Gm Tube) 1 appl TOPICAL BID [facility]; Protocol Last Admin: 04/05/24 20:20 Dose: Not Given Olanzapine (Olanzapine Odt 10 Mg Tab.Rapdis) 10 mg TRANSLINGU TID PRN PRN Reason: agitation Last Admin: 03/31/24 04:50 Dose: 10 mg Olanzapine (Olanzapine Odt 10 Mg Tab.Rapdis) 25 mg TRANSLINGU BEDTIME [facility] Ondansetron HCl (Ondansetron Odt 4 Mg Tab.Rapdis) 4 mg TRANSLINGU Q6H PRN PRN Reason: Nausea and Vomiting Senna/Docusate Sodium (Sennosides/Docusate Sodium Tablet) 1 tab PO BID [facility] Last Admin: 04/05/24 12:39 Dose: Not Given Simethicone (Simethicone 80 Mg Tab.Chew) 80 mg PO QIDWMHS PRN PRN Reason: Gas Last Admin: 04/04/24 18:37 Dose: 80 mg Allergies Allergies Allergy/AdvReac Type Severity Reaction Status Date / Time haloperidol [From Haldol] AdvReac Severe tongue Verified 07/13/23 14:18 swelling Assessment & Plan Assessment & Plan (1) Opiate dependence: Status: Acute Code(s): F11.20 - Opioid dependence, uncomplicated (2) Schizophrenia, paranoid, chronic with acute exacerbation: Status: Acute Code(s): F20.0 - Paranoid schizophrenia Plan Pt is a 33-year-old male with a PMH significant for?opioid dependence on methadone, hx of IVDU, peripheral neuropathy, hx of osteomyelitis of great toe, anxiety, and depression who is admitted to [facility] psychiat[facility] unit for auditory hallucinations and suicidal ideations. Apparently these have been worsening for the past few weeks, though he denies any specific plan. Reported having bugs and side of his head that would crawl in and out of his eyes and that he had people running around side of his head. PLAN 03/28- increase olanzapine to 10mg po BID. Olanzapine 10mg po q6h prn agitation, clonazepam 0.5mg po BID, in addition to clonazepam 0.5mg po BID PRN severe anxious mood s/s to acute psychosis. 03/29: refusing antipsychotics. agrees to take zyprexa 20 tonight rather than 10 BID. signed CV. 03/30: took meds last night. pacing, hand gestures. also greeted [place] in [place]. no complaints or requests. likes regimen, just needs time, he says. 03/31: Continue current treatment plan. 04/01: stable presentation. continue current mgmt. 04/02: continue current management and treatment plan. 04/03: continue current management and treatment plan. 04/04: Encourage adherence. Continue current management and treatment plan. 04/05: took meds last night when had been refusing them over w/e. hypersexual, asked RN for hug. refusing clozaril re-trial. amenable only to modest zyprexa dose increase, from 20 mg QHS to 25 mg QHS. senna-colace started for constipation. Reason for continued inpatient stay Substantial Risk for: harm to self, inability to function and rapid decompensation Time Spent With Patient Time: Total time managing care of this patient today __25__ minutes.
[2024-04-05] MEDS: OLANZapine ODT 10 MG TAB.RAPDIS 25 MG TRANSLINGU (22:47)
[2024-04-06] MEDS: Nicotine Polacrilex 2 MG GUM 4 MG BUCCAL ×4 (05:02→21:12)
[2024-04-06] MEDS: clonazePAM 0.5 MG TABLET PO ×4 (06:25→21:13)
[2024-04-06] MEDS: methADONE HCl 20 MG/2 ML ORAL.CONC 130 MG PO (07:49)
[2024-04-06] MEDS: Gabapentin 600 MG TABLET PO ×3 (08:09→21:13)
--- NOTE | 2024-04-06 15:46 | HO.PSYCHPN ---
Subjective Subjective Date of Service: 04/06/24 Reason For Visit: Crisis Interim History: calm, cooperative, ambivalent. states he continues to feel better on current regimen. reluctantly agrees to increase zyprexa dosing to 30 QHS. per staff, +RIS. took meds. appropriate. paranoid. loitering at exits. slept 4-5 hours. said to a staff member, what's wrong with your face? it looks like there are dark holes where your eyes are supposed to be. Mental Status Exam Mental Status Exam Narrative: Appearance: wearing hospital attire, poor hygiene Behavior: cooperative Psychomotor: pacing, restless Speech: mostly clear, normal rate/rhythm/volume, spontaneous TP: linear TC: Tx Mood: not assessed Affect: constricted, normo-intense, non-labile SI: none expressed HI: none expressed VH/AH: +AH Delusions: none expressed Insight/judgment: impaired x 2. Memory/cog: alert, oriented x 3. Diagnostics Vital Signs (24Hr): BMI result Body Mass Index 20.8 Medications Medications Current Medications Acetaminophen (Acetaminophen 325 Mg Tablet) 650 mg PO Q6H PRN PRN Reason: Headache/Pain Mild Scale (1-3) Al Hydroxide/Mg Hydroxide (Magnesium Hydrox/Alum Hydrox 30 Ml Oral.Susp) 30 ml PO Q6H PRN PRN Reason: Heartburn/Nausea Clonazepam (Clonazepam 0.5 Mg Tablet) 0.5 mg PO BID [facility] Last Admin: 04/06/24 08:09 Dose: 0.5 mg Clonazepam (Clonazepam 0.5 Mg Tablet) 0.5 mg PO BID PRN PRN Reason: moderate/severe anxiety/sleep Last Admin: 04/06/24 06:25 Dose: 0.5 mg Gabapentin (Gabapentin 600 Mg Tablet) 600 mg PO TID [facility] Last Admin: 04/06/24 14:23 Dose: 600 mg Magnesium Hydroxide (Milk Of Magnesia 30 Ml Oral.Susp) 30 ml PO DAILY PRN PRN Reason: Constipation Methadone HCl (Methadone Hcl 20 Mg/2 Ml Oral.Conc) 130 mg PO DAILY [facility] Last Admin: 04/06/24 07:49 Dose: 130 mg Nicotine (Nicotine 14 Mg Patch.Td24) 14 mg TRANSDERMA DAILY [facility] Last Admin: 04/06/24 08:10 Dose: Not Given Nicotine Polacrilex (Nicotine Polacrilex 2 Mg Gum) 2 mg BUCCAL Q1H PRN PRN Reason: Nicotine Cravings Last Admin: 04/03/24 16:46 Dose: 2 mg Nicotine Polacrilex (Nicotine Polacrilex 2 Mg Gum) 4 mg BUCCAL Q2H PRN PRN Reason: nicotine cravings Last Admin: 04/06/24 09:46 Dose: 4 mg Nystatin (Nystatin Cream 15 Gm Tube) 1 appl TOPICAL BID [facility]; Protocol Last Admin: 04/06/24 08:10 Dose: Not Given Olanzapine (Olanzapine Odt 10 Mg Tab.Rapdis) 10 mg TRANSLINGU TID PRN PRN Reason: agitation Last Admin: 03/31/24 04:50 Dose: 10 mg Olanzapine (Olanzapine Odt 10 Mg Tab.Rapdis) 30 mg TRANSLINGU BEDTIME [facility] Ondansetron HCl (Ondansetron Odt 4 Mg Tab.Rapdis) 4 mg TRANSLINGU Q6H PRN PRN Reason: Nausea and Vomiting Senna/Docusate Sodium (Sennosides/Docusate Sodium Tablet) 1 tab PO BID [facility] Last Admin: 04/06/24 08:10 Dose: Not Given Simethicone (Simethicone 80 Mg Tab.Chew) 80 mg PO QIDWMHS PRN PRN Reason: Gas Last Admin: 04/04/24 18:37 Dose: 80 mg Allergies Allergies Allergy/AdvReac Type Severity Reaction Status Date / Time haloperidol [From Haldol] AdvReac Severe tongue Verified 07/13/23 14:18 swelling Assessment & Plan Assessment & Plan (1) Opiate dependence: Status: Acute Code(s): F11.20 - Opioid dependence, uncomplicated (2) Schizophrenia, paranoid, chronic with acute exacerbation: Status: Acute Code(s): F20.0 - Paranoid schizophrenia Plan Pt is a 33-year-old male with a PMH significant for?opioid dependence on methadone, hx of IVDU, peripheral neuropathy, hx of osteomyelitis of great toe, anxiety, and depression who is admitted to psychiatry unit for auditory hallucinations and suicidal ideations. Apparently these have been worsening for the past few weeks, though he denies any specific plan. Reported having bugs and side of his head that would crawl in and out of his eyes and that he had people running around side of his head. PLAN 03/28- increase olanzapine to 10mg po BID. Olanzapine 10mg po q6h prn agitation, clonazepam 0.5mg po BID, in addition to clonazepam 0.5mg po BID PRN severe anxious mood s/s to acute psychosis. 03/29: refusing antipsychotics. agrees to take zyprexa 20 tonight rather than 10 BID. signed CV. 03/30: took meds last night. pacing, hand gestures. also greeted [place]. no complaints or requests. likes regimen, just needs time, he says. 03/31: Continue current treatment plan. 04/01: stable presentation. continue current mgmt. 04/02: continue current management and treatment plan. 04/03: continue current management and treatment plan. 04/04: Encourage adherence. Continue current management and treatment plan. 04/05: took meds last night when had been refusing them over w/e. hypersexual, asked RN for hug. refusing clozaril re-trial. amenable only to modest zyprexa dose increase, from 20 mg QHS to 25 mg QHS. senna-colace started for constipation. 04/06: no hypersexuality noted last night. increase zyprexa to 30 mg QHS. per collateral from [facility], pt has SI at baseline and does not F/U with aftercare once discharged from the hospital. Reason for continued inpatient stay Substantial Risk for: harm to self, inability to function and rapid decompensation Time Spent With Patient Time: Total time managing care of this patient today __25__ minutes.
[2024-04-06 20:16] VITALS: RESP 18
[2024-04-07] MEDS: OLANZapine ODT 10 MG TAB.RAPDIS 30 MG TRANSLINGU (01:30)
[2024-04-07] MEDS: Nicotine Polacrilex 2 MG GUM 4 MG BUCCAL ×4 (01:30→17:25)
[2024-04-07] MEDS: methADONE HCl 20 MG/2 ML ORAL.CONC 130 MG PO (08:04)
[2024-04-07] MEDS: Gabapentin 600 MG TABLET PO ×2 (09:11→15:21)
[2024-04-07] MEDS: clonazePAM 0.5 MG TABLET PO (09:11)
[2024-04-07 11:35] VITALS: BMI 21.4
--- NOTE | 2024-04-07 14:52 | HO.PSYCHPN ---
Subjective Subjective Date of Service: 04/07/24 Reason For Visit: Crisis Interim History: pacing somewhat agitatedly, some hand motions. calm and cooperative on interview, although does appear perhaps somewhat put out by having to meet with MD. states he felt like he actually got some sleep last night. mood fine, no SI recently. per staff, angry, withdrawn. RIS. rapid pacing. raising voice. accepted only klonopin and gabapentin at , then got up after 0130 and asked for zyprexa. Mental Status Exam Mental Status Exam Narrative: Appearance: wearing hospital attire, poor hygiene Behavior: cooperative Psychomotor: pacing, restless Speech: mostly clear, normal rate/rhythm/volume, spontaneous TP: linear TC: Tx Mood: fine Affect: constricted, normo-intense, non-labile SI: none HI: none expressed VH/AH: +AH Delusions: none expressed Insight/judgment: impaired x 2. Memory/cog: alert, oriented x 3. Diagnostics Vital Signs (24Hr): Vital Signs - 24 hr 04/06/24 20:16 Respiratory Rate 18 BMI result Body Mass Index 21.4 Medications Medications Current Medications Acetaminophen (Acetaminophen 325 Mg Tablet) 650 mg PO Q6H PRN PRN Reason: Headache/Pain Mild Scale (1-3) Al Hydroxide/Mg Hydroxide (Magnesium Hydrox/Alum Hydrox 30 Ml Oral.Susp) 30 ml PO Q6H PRN PRN Reason: Heartburn/Nausea Clonazepam (Clonazepam 0.5 Mg Tablet) 0.5 mg PO BID [facility] Last Admin: 04/07/24 09:11 Dose: 0.5 mg Clonazepam (Clonazepam 0.5 Mg Tablet) 0.5 mg PO BID PRN PRN Reason: moderate/severe anxiety/sleep Last Admin: 04/06/24 18:13 Dose: 0.5 mg Gabapentin (Gabapentin 600 Mg Tablet) 600 mg PO TID [facility] Last Admin: 04/07/24 09:11 Dose: 600 mg Magnesium Hydroxide (Milk Of Magnesia 30 Ml Oral.Susp) 30 ml PO DAILY PRN PRN Reason: Constipation Methadone HCl (Methadone Hcl 20 Mg/2 Ml Oral.Conc) 130 mg PO DAILY@0800 [facility] Nicotine (Nicotine 14 Mg Patch.Td24) 14 mg TRANSDERMA DAILY [facility] Last Admin: 04/07/24 09:31 Dose: Not Given Nicotine Polacrilex (Nicotine Polacrilex 2 Mg Gum) 2 mg BUCCAL Q1H PRN PRN Reason: Nicotine Cravings Last Admin: 04/03/24 16:46 Dose: 2 mg Nicotine Polacrilex (Nicotine Polacrilex 2 Mg Gum) 4 mg BUCCAL Q2H PRN PRN Reason: nicotine cravings Last Admin: 04/07/24 09:11 Dose: 4 mg Nystatin (Nystatin Cream 15 Gm Tube) 1 appl TOPICAL BID [facility]; Protocol Last Admin: 04/07/24 09:32 Dose: Not Given Olanzapine (Olanzapine Odt 10 Mg Tab.Rapdis) 10 mg TRANSLINGU TID PRN PRN Reason: agitation Last Admin: 03/31/24 04:50 Dose: 10 mg Olanzapine (Olanzapine Odt 10 Mg Tab.Rapdis) 30 mg TRANSLINGU BEDTIME [facility] Last Admin: 04/07/24 01:30 Dose: 30 mg Ondansetron HCl (Ondansetron Odt 4 Mg Tab.Rapdis) 4 mg TRANSLINGU Q6H PRN PRN Reason: Nausea and Vomiting Senna/Docusate Sodium (Sennosides/Docusate Sodium Tablet) 1 tab PO BID [facility] Last Admin: 04/07/24 09:32 Dose: Not Given Simethicone (Simethicone 80 Mg Tab.Chew) 80 mg PO QIDWMHS PRN PRN Reason: Gas Last Admin: 04/04/24 18:37 Dose: 80 mg Allergies Allergies Allergy/AdvReac Type Severity Reaction Status Date / Time haloperidol [From Haldol] AdvReac Severe tongue Verified 07/13/23 14:18 swelling Assessment & Plan Assessment & Plan (1) Opiate dependence: Status: Acute Code(s): F11.20 - Opioid dependence, uncomplicated (2) Schizophrenia, paranoid, chronic with acute exacerbation: Status: Acute Code(s): F20.0 - Paranoid schizophrenia Plan Pt is a 33-year-old male with a PMH significant for?opioid dependence on methadone, hx of IVDU, peripheral neuropathy, hx of osteomyelitis of great toe, anxiety, and depression who is admitted to [facility] unit for auditory hallucinations and suicidal ideations. Apparently these have been worsening for the past few weeks, though he denies any specific plan. Reported having bugs and side of his head that would crawl in and out of his eyes and that he had people running around side of his head. PLAN 03/28- increase olanzapine to 10mg po BID. Olanzapine 10mg po q6h prn agitation, clonazepam 0.5mg po BID, in addition to clonazepam 0.5mg po BID PRN severe anxious mood s/s to acute psychosis. 03/29: refusing antipsychotics. agrees to take zyprexa 20 tonight rather than 10 BID. signed CV. 03/30: took meds last night. pacing, hand gestures. also greeted MD in [place]. no complaints or requests. likes regimen, just needs time, he says. 03/31: Continue current treatment plan. 04/01: stable presentation. continue current mgmt. 04/02: continue current management and treatment plan. 04/03: continue current management and treatment plan. 04/04: Encourage adherence. Continue current management and treatment plan. 04/05: took meds last night when had been refusing them over w/e. hypersexual, asked RN for hug. refusing clozaril re-trial. amenable only to modest zyprexa dose increase, from 20 mg QHS to 25 mg QHS. senna-colace started for constipation. 04/06: no hypersexuality noted last night. increase zyprexa to 30 mg QHS. per collateral from [facility] Fern[facility], pt has SI at baseline and does not F/U with aftercare once discharged from the hospital. 04/07: reports good sleep last night, denies SI, reports mood is fine. Reason for continued inpatient stay Substantial Risk for: harm to self, inability to function and rapid decompensation Time Spent With Patient Time: Total time managing care of this patient today __25__ minutes.
[2024-04-07 20:30] VITALS: RESP 18
[2024-04-08] MEDS: clonazePAM 0.5 MG TABLET PO ×4 (04:42→21:20)
[2024-04-08] MEDS: Nicotine Polacrilex 2 MG GUM 4 MG BUCCAL ×3 (04:45→21:20)
[2024-04-08] MEDS: OLANZapine ODT 10 MG TAB.RAPDIS 30 MG TRANSLINGU (04:46)
[2024-04-08 08:00] VITALS: RESP 18
[2024-04-08] MEDS: methADONE HCl 20 MG/2 ML ORAL.CONC 130 MG PO (08:17)
[2024-04-08] MEDS: Nicotine Polacrilex 2 MG GUM BUCCAL ×2 (09:27→16:27)
[2024-04-08] MEDS: Gabapentin 600 MG TABLET PO ×3 (09:27→21:20)
--- NOTE | 2024-04-08 12:39 | P.PNPSI_ITS ---
Subjective Subjective Date of Service: 04/08/24 Reason For Visit: Crisis Interim History: no change in presentation. explains he was not offered medication at bedtime, so that is why he took it later. on that reason being challenged by MD, pt amended his reply to say that he was not ready for bed and the medication makes him sleepy so he waits until he is ready to go to sleep to take it. he was advised to maintain a regular circadian rhythm. was able to produce his sister julito # as a way to get his mother's contact info. per staff, pacing, hand gestures. taking meds in a.m. refused HS meds initially, then accepted them around 0430. Mental Status Exam Mental Status Exam Narrative: Appearance: wearing hospital attire, poor hygiene Behavior: cooperative Psychomotor: pacing, restless Speech: mostly clear, normal rate/rhythm/volume, spontaneous TP: linear TC: Tx Mood: fine Affect: constricted, normo-intense, non-labile SI: none expressed HI: none expressed VH/AH: none expressed Delusions: none expressed Insight/judgment: impaired x 2. Memory/cog: alert, oriented x 3. Diagnostics Vital Signs (24Hr): Vital Signs - 24 hr 04/07/24 20:30 04/08/24 08:00 Respiratory Rate 18 18 BMI result Body Mass Index 21.4 Medications Medications Current Medications Acetaminophen (Acetaminophen 325 Mg Tablet) 650 mg PO Q6H PRN PRN Reason: Headache/Pain Mild Scale (1-3) Al Hydroxide/Mg Hydroxide (Magnesium Hydrox/Alum Hydrox 30 Ml Oral.Susp) 30 ml PO Q6H PRN PRN Reason: Heartburn/Nausea Clonazepam (Clonazepam 0.5 Mg Tablet) 0.5 mg PO BID [facility] Last Admin: 04/08/24 09:27 Dose: 0.5 mg Clonazepam (Clonazepam 0.5 Mg Tablet) 0.5 mg PO BID PRN PRN Reason: moderate/severe anxiety/sleep Last Admin: 04/08/24 04:42 Dose: 0.5 mg Gabapentin (Gabapentin 600 Mg Tablet) 600 mg PO TID [facility] Last Admin: 04/08/24 09:27 Dose: 600 mg Magnesium Hydroxide (Milk Of Magnesia 30 Ml Oral.Susp) 30 ml PO DAILY PRN PRN Reason: Constipation Methadone HCl (Methadone Hcl 20 Mg/2 Ml Oral.Conc) 130 mg PO DAILY@0800 [facility] Last Admin: 04/08/24 08:17 Dose: 130 mg Nicotine (Nicotine 14 Mg Patch.Td24) 14 mg TRANSDERMA DAILY [facility] Last Admin: 04/08/24 09:27 Dose: Not Given Nicotine Polacrilex (Nicotine Polacrilex 2 Mg Gum) 2 mg BUCCAL Q1H PRN PRN Reason: Nicotine Cravings Last Admin: 04/08/24 09:27 Dose: 2 mg Nicotine Polacrilex (Nicotine Polacrilex 2 Mg Gum) 4 mg BUCCAL Q2H PRN PRN Reason: nicotine cravings Last Admin: 04/08/24 04:45 Dose: 4 mg Nystatin (Nystatin Cream 15 Gm Tube) 1 appl TOPICAL BID [facility]; Protocol Last Admin: 04/08/24 09:27 Dose: Not Given Olanzapine (Olanzapine Odt 10 Mg Tab.Rapdis) 10 mg TRANSLINGU TID PRN PRN Reason: agitation Last Admin: 03/31/24 04:50 Dose: 10 mg Olanzapine (Olanzapine Odt 10 Mg Tab.Rapdis) 30 mg TRANSLINGU BEDTIME [facility] Last Admin: 04/08/24 04:46 Dose: 30 mg Ondansetron HCl (Ondansetron Odt 4 Mg Tab.Rapdis) 4 mg TRANSLINGU Q6H PRN PRN Reason: Nausea and Vomiting Senna/Docusate Sodium (Sennosides/Docusate Sodium Tablet) 1 tab PO BID [facility] Last Admin: 04/08/24 09:28 Dose: Not Given Simethicone (Simethicone 80 Mg Tab.Chew) 80 mg PO QIDWMHS PRN PRN Reason: Gas Last Admin: 04/04/24 18:37 Dose: 80 mg Allergies Allergies Allergy/AdvReac Type Severity Reaction Status Date / Time haloperidol [From Haldol] AdvReac Severe tongue Verified 07/13/23 14:18 swelling Assessment & Plan Assessment & Plan (1) Opiate dependence: Status: Acute Code(s): F11.20 - Opioid dependence, uncomplicated (2) Schizophrenia, paranoid, chronic with acute exacerbation: Status: Acute Code(s): F20.0 - Paranoid schizophrenia Plan Pt is a 33-year-old male with a PMH significant for?opioid dependence on methadone, hx of IVDU, peripheral neuropathy, hx of osteomyelitis of great toe, anxiety, and depression who is admitted to [facility] unit for auditory hallucinations and suicidal ideations. Apparently these have been worsening for the past few weeks, though he denies any specific plan. Reported having bugs and side of his head that would crawl in and out of his eyes and that he had people running around side of his head. PLAN 03/28- increase olanzapine to 10mg po BID. Olanzapine 10mg po q6h prn agitation, clonazepam 0.5mg po BID, in addition to clonazepam 0.5mg po BID PRN severe anxious mood s/s to acute psychosis. 03/29: refusing antipsychotics. agrees to take zyprexa 20 tonight rather than 10 BID. signed CV. 03/30: took meds last night. pacing, hand gestures. also greeted MD in [place]. no complaints or requests. likes regimen, just needs time, he says. 03/31: Continue current treatment plan. 04/01: stable presentation. continue current mgmt. 04/02: continue current management and treatment plan. 04/03: continue current management and treatment plan. 04/04: Encourage adherence. Continue current management and treatment plan. 04/05: took meds last night when had been refusing them over w/e. hypersexual, asked RN for hug. refusing clozaril re-trial. amenable only to modest zyprexa dose increase, from 20 mg QHS to 25 mg QHS. senna-colace started for constipation. 04/06: no hypersexuality noted last night. increase zyprexa to 30 mg QHS. per collateral from [facility] Fern[facility], pt has SI at baseline and does not F/U with aftercare once discharged from the hospital. 04/07: reports good sleep last night, denies SI, reports mood is fine. 04/08: no change in presentation. past 2 nights has refused HS meds at HS, then asked for them later in the night (0130 two nights ago, 0430 last night). T/C g[facility] Dx and trial of mood stabilizer, as pt does not appear to be improving appreciably with antipsychotics only, has poor sleep and excessive energy. continues constant pacing, talking to self, bizarre hand gestures. Reason for continued inpatient stay Substantial Risk for: inability to function and rapid decompensation Time Spent With Patient Time: Total time managing care of this patient today __25__ minutes.
[2024-04-08 20:00] VITALS: RESP 17
[2024-04-09] MEDS: OLANZapine ODT 10 MG TAB.RAPDIS 30 MG TRANSLINGU (04:27)
--- NOTE | 2024-04-09 04:34 | PC.NURSE ---
HS zydis-patient has pattern of not taking HS zydis when scheduled but will ask for medication in the middle of the night. will have psychiatrist review pattern.
[2024-04-09] MEDS: Nicotine Polacrilex 2 MG GUM 4 MG BUCCAL ×5 (04:47→20:06)
--- NOTE | 2024-04-09 08:04 | HO.PSYCHPN ---
Subjective Subjective Date of Service: 04/09/24 Reason For Visit: Crisis Subjective Notes: Conditional Voluntary Medical Problems Affecting Mental Status: No Interim History: no change in presentation. Continues to pace, hand gestures, disorganized in thoughts. Limited engagement with sba underwriter. Food all over bed. Internally preoccupied. Partial med adherence e.g meds in a.m. refused HS meds initially, then accepted them later. Medication Compliance: Intermittent Side effects from medications: No Attending Groups: No Review of Systems Acute medical concerns: No Review of Systems Review of Systems fungal infection of feet, neuropathy, and ? red area could be skin infection Constitutional: Reports as per HPI Eyes: Reports as per HPI Reports as per HPI Cardiovascular: Reports as per HPI Respiratory: Reports as per HPI Gastrointestinal: Reports as per HPI Genitourinary: Reports as per HPI Musculoskeletal: Reports as per HPI Skin/Breast: Reports as per HPI Reports as per HPI Psychiatric: Reports as per HPI Endocrine: Reports as per HPI Hematologic/Lymphatic: Reports as per HPI Allergic/Immunologic: Reports as per HPI Mental Status Exam Mental Status Exam Narrative: Appearance: wearing hospital attire, poor hygiene Behavior: cooperative Psychomotor: in bed Speech: mostly clear, normal rate/rhythm/volume, spontaneous TP: linear TC: Tx Mood: fine Affect: constricted, normo-intense, non-labile SI: none expressed HI: none expressed VH/AH: none expressed, appears internally preoccupied Delusions: none expressed Insight/judgment: impaired x 2. Memory/cog: alert, oriented x 3. Diagnostics Vital Signs (24Hr): Vital Signs - 24 hr 04/08/24 20:00 Respiratory Rate 17 BMI result Body Mass Index 21.4 Medications Medications Current Medications Acetaminophen (Acetaminophen 325 Mg Tablet) 650 mg PO Q6H PRN PRN Reason: Headache/Pain Mild Scale (1-3) Al Hydroxide/Mg Hydroxide (Magnesium Hydrox/Alum Hydrox 30 Ml Oral.Susp) 30 ml PO Q6H PRN PRN Reason: Heartburn/Nausea Clonazepam (Clonazepam 0.5 Mg Tablet) 0.5 mg PO BID [facility] Last Admin: 04/08/24 21:20 Dose: 0.5 mg Clonazepam (Clonazepam 0.5 Mg Tablet) 0.5 mg PO BID PRN PRN Reason: moderate/severe anxiety/sleep Last Admin: 04/08/24 16:28 Dose: 0.5 mg Gabapentin (Gabapentin 600 Mg Tablet) 600 mg PO TID [facility] Last Admin: 04/08/24 21:20 Dose: 600 mg Magnesium Hydroxide (Milk Of Magnesia 30 Ml Oral.Susp) 30 ml PO DAILY PRN PRN Reason: Constipation Methadone HCl (Methadone Hcl 20 Mg/2 Ml Oral.Conc) 130 mg PO DAILY@0800 [facility] Last Admin: 04/08/24 08:17 Dose: 130 mg Nicotine (Nicotine 14 Mg Patch.Td24) 14 mg TRANSDERMA DAILY [facility] Last Admin: 04/08/24 09:27 Dose: Not Given Nicotine Polacrilex (Nicotine Polacrilex 2 Mg Gum) 2 mg BUCCAL Q1H PRN PRN Reason: Nicotine Cravings Last Admin: 04/08/24 16:27 Dose: 2 mg Nicotine Polacrilex (Nicotine Polacrilex 2 Mg Gum) 4 mg BUCCAL Q2H PRN PRN Reason: nicotine cravings Last Admin: 04/09/24 04:47 Dose: 4 mg Nystatin (Nystatin Cream 15 Gm Tube) 1 appl TOPICAL BID [facility]; Protocol Last Admin: 04/08/24 21:22 Dose: Not Given Olanzapine (Olanzapine Odt 10 Mg Tab.Rapdis) 10 mg TRANSLINGU TID PRN PRN Reason: agitation Last Admin: 03/31/24 04:50 Dose: 10 mg Olanzapine (Olanzapine Odt 10 Mg Tab.Rapdis) 30 mg TRANSLINGU BEDTIME [facility] Last Admin: 04/09/24 04:27 Dose: 30 mg Ondansetron HCl (Ondansetron Odt 4 Mg Tab.Rapdis) 4 mg TRANSLINGU Q6H PRN PRN Reason: Nausea and Vomiting Senna/Docusate Sodium (Sennosides/Docusate Sodium Tablet) 1 tab PO BID [facility] Last Admin: 04/08/24 21:22 Dose: Not Given Simethicone (Simethicone 80 Mg Tab.Chew) 80 mg PO QIDWMHS PRN PRN Reason: Gas Last Admin: 04/04/24 18:37 Dose: 80 mg Allergies Allergies Allergy/AdvReac Type Severity Reaction Status Date / Time haloperidol [From Haldol] AdvReac Severe tongue Verified 07/13/23 14:18 swelling Assessment & Plan Assessment & Plan (1) Opiate dependence: Status: Acute Code(s): F11.20 - Opioid dependence, uncomplicated (2) Schizophrenia, paranoid, chronic with acute exacerbation: Status: Acute Code(s): F20.0 - Paranoid schizophrenia Plan Pt is a 33-year-old male with a PMH significant for?opioid dependence on methadone, hx of IVDU, peripheral neuropathy, hx of osteomyelitis of great toe, anxiety, and depression who is admitted to psychiatry unit for auditory hallucinations and suicidal ideations. Apparently these have been worsening for the past few weeks, though he denies any specific plan. Reported having bugs and side of his head that would crawl in and out of his eyes and that he had people running around side of his head. PLAN 03/28- increase olanzapine to 10mg po BID. Olanzapine 10mg po q6h prn agitation, clonazepam 0.5mg po BID, in addition to clonazepam 0.5mg po BID PRN severe anxious mood s/s to acute psychosis. 03/29: refusing antipsychotics. agrees to take zyprexa 20 tonight rather than 10 BID. signed CV. 03/30: took meds last night. pacing, hand gestures. also greeted [place]. no complaints or requests. likes regimen, just needs time, he says. 03/31: Continue current treatment plan. 04/01: stable presentation. continue current mgmt. 04/02: continue current management and treatment plan. 04/03: continue current management and treatment plan. 04/04: Encourage adherence. Continue current management and treatment plan. 04/05: took meds last night when had been refusing them over w/e. hypersexual, asked RN for hug. refusing clozaril re-trial. amenable only to modest zyprexa dose increase, from 20 mg QHS to 25 mg QHS. senna-colace started for constipation. 04/06: no hypersexuality noted last night. increase zyprexa to 30 mg QHS. per collateral from [facility] Fern[facility], pt has SI at baseline and does not F/U with aftercare once discharged from the hospital. 04/07: reports good sleep last night, denies SI, reports mood is fine. 04/08: no change in presentation. past 2 nights has refused HS meds at HS, then asked for them later in the night (0130 two nights ago, 0430 last night). T/C giselle Dx and trial of mood stabilizer, as pt does not appear to be improving appreciably with antipsychotics only, has poor sleep and excessive energy. continues constant pacing, talking to self, bizarre hand gestures. 04/09: ongoing encouragement ref med adherence Reason for continued inpatient stay Substantial Risk for: inability to function Time Spent With Patient Time: Total time managing care of this patient today ____ minutes.
[2024-04-09] MEDS: methADONE HCl 20 MG/2 ML ORAL.CONC 130 MG PO (08:11)
[2024-04-09] MEDS: Gabapentin 600 MG TABLET PO ×3 (08:34→20:06)
[2024-04-09] MEDS: clonazePAM 0.5 MG TABLET PO ×3 (08:34→20:06)
[2024-04-09] MEDS: Nicotine Polacrilex 2 MG GUM BUCCAL (13:28)
[2024-04-09 20:00] VITALS: RESP 16
[2024-04-10] MEDS: OLANZapine ODT 10 MG TAB.RAPDIS 30 MG TRANSLINGU ×2 (00:28→21:48)
[2024-04-10] MEDS: methADONE HCl 20 MG/2 ML ORAL.CONC 130 MG PO (08:08)
--- NOTE | 2024-04-10 08:09 | HO.PSYCHPN ---
Subjective Subjective Date of Service: 04/10/24 Reason For Visit: Crisis Medical Problems Affecting Mental Status: No Interim History: Continues to pace, hand gestures, disorganized in thoughts. 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 Internally preoccupied. Partial med adherence e.g meds in a.m. refused HS meds initially, then accepted them later. Medication Compliance: Intermittent Side effects from medications: No Attending Groups: No Review of Systems Acute medical concerns: No Review of Systems Review of Systems fungal infection of feet, neuropathy, and ? red area could be skin infection Constitutional: Reports as per HPI Eyes: Reports as per HPI Reports as per HPI Cardiovascular: Reports as per HPI Respiratory: Reports as per HPI Gastrointestinal: Reports as per HPI Genitourinary: Reports as per HPI Musculoskeletal: Reports as per HPI Skin/Breast: Reports as per HPI Reports as per HPI Psychiatric: Reports as per HPI Endocrine: Reports as per HPI Hematologic/Lymphatic: Reports as per HPI Allergic/Immunologic: Reports as per HPI Mental Status Exam Mental Status Exam Narrative: Appearance: wearing hospital attire, poor hygiene Behavior: cooperative Psychomotor: in hallways pacing Speech: mostly clear, normal rate/rhythm/volume, spontaneous TP: linear TC: Tx Mood: fine Affect: constricted, normo-intense, non-labile SI: none expressed HI: none expressed VH/AH: none expressed, appears internally preoccupied Delusions: none expressed Insight/judgment: impaired x 2. Memory/cog: alert, oriented x 3. Diagnostics Vital Signs (24Hr): Vital Signs - 24 hr 04/09/24 20:00 Respiratory Rate 16 BMI result Body Mass Index 21.4 Medications Medications Current Medications Acetaminophen (Acetaminophen 325 Mg Tablet) 650 mg PO Q6H PRN PRN Reason: Headache/Pain Mild Scale (1-3) Al Hydroxide/Mg Hydroxide (Magnesium Hydrox/Alum Hydrox 30 Ml Oral.Susp) 30 ml PO Q6H PRN PRN Reason: Heartburn/Nausea Clonazepam (Clonazepam 0.5 Mg Tablet) 0.5 mg PO BID [facility] Last Admin: 04/09/24 20:06 Dose: 0.5 mg Clonazepam (Clonazepam 0.5 Mg Tablet) 0.5 mg PO BID PRN PRN Reason: moderate/severe anxiety/sleep Last Admin: 04/09/24 15:45 Dose: 0.5 mg Gabapentin (Gabapentin 600 Mg Tablet) 600 mg PO TID [facility] Last Admin: 04/09/24 20:06 Dose: 600 mg Magnesium Hydroxide (Milk Of Magnesia 30 Ml Oral.Susp) 30 ml PO DAILY PRN PRN Reason: Constipation Methadone HCl (Methadone Hcl 20 Mg/2 Ml Oral.Conc) 130 mg PO DAILY@0800 [facility] Last Admin: 04/09/24 08:11 Dose: 130 mg Nicotine (Nicotine 14 Mg Patch.Td24) 14 mg TRANSDERMA DAILY [facility] Last Admin: 04/09/24 08:36 Dose: Not Given Nicotine Polacrilex (Nicotine Polacrilex 2 Mg Gum) 2 mg BUCCAL Q1H PRN PRN Reason: Nicotine Cravings Last Admin: 04/09/24 13:28 Dose: 2 mg Nicotine Polacrilex (Nicotine Polacrilex 2 Mg Gum) 4 mg BUCCAL Q2H PRN PRN Reason: nicotine cravings Last Admin: 04/09/24 20:06 Dose: 4 mg Nystatin (Nystatin Cream 15 Gm Tube) 1 appl TOPICAL BID [facility]; Protocol Last Admin: 04/09/24 20:09 Dose: Not Given Olanzapine (Olanzapine Odt 10 Mg Tab.Rapdis) 10 mg TRANSLINGU TID PRN PRN Reason: agitation Last Admin: 03/31/24 04:50 Dose: 10 mg Olanzapine (Olanzapine Odt 10 Mg Tab.Rapdis) 30 mg TRANSLINGU BEDTIME [facility] Last Admin: 04/10/24 00:28 Dose: 30 mg Ondansetron HCl (Ondansetron Odt 4 Mg Tab.Rapdis) 4 mg TRANSLINGU Q6H PRN PRN Reason: Nausea and Vomiting Senna/Docusate Sodium (Sennosides/Docusate Sodium Tablet) 1 tab PO BID [facility] Last Admin: 04/09/24 20:10 Dose: Not Given Simethicone (Simethicone 80 Mg Tab.Chew) 80 mg PO QIDWMHS PRN PRN Reason: Gas Last Admin: 04/04/24 18:37 Dose: 80 mg Allergies Allergies Allergy/AdvReac Type Severity Reaction Status Date / Time haloperidol [From Haldol] AdvReac Severe tongue Verified 07/13/23 14:18 swelling Assessment & Plan Assessment & Plan (1) Opiate dependence: Status: Acute Code(s): F11.20 - Opioid dependence, uncomplicated (2) Schizophrenia, paranoid, chronic with acute exacerbation: Status: Acute Code(s): F20.0 - Paranoid schizophrenia Plan Pt is a 33-year-old male with a PMH significant for?opioid dependence on methadone, hx of IVDU, peripheral neuropathy, hx of osteomyelitis of great toe, anxiety, and depression who is admitted to [facility] psychiatry unit for auditory hallucinations and suicidal ideations. Apparently these have been worsening for the past few weeks, though he denies any specific plan. Reported having bugs and side of his head that would crawl in and out of his eyes and that he had people running around side of his head. PLAN 03/28- increase olanzapine to 10mg po BID. Olanzapine 10mg po q6h prn agitation, clonazepam 0.5mg po BID, in addition to clonazepam 0.5mg po BID PRN severe anxious mood s/s to acute psychosis. 03/29: refusing antipsychotics. agrees to take zyprexa 20 tonight rather than 10 BID. signed CV. 03/30: took meds last night. pacing, hand gestures. also greeted MD in [place]. no complaints or requests. likes regimen, just needs time, he says. 03/31: Continue current treatment plan. 04/01: stable presentation. continue current mgmt. 04/02: continue current management and treatment plan. 04/03: continue current management and treatment plan. 04/04: Encourage adherence. Continue current management and treatment plan. 04/05: took meds last night when had been refusing them over w/e. hypersexual, asked RN for hug. refusing clozaril re-trial. amenable only to modest zyprexa dose increase, from 20 mg QHS to 25 mg QHS. senna-colace started for constipation. 04/06: no hypersexuality noted last night. increase zyprexa to 30 mg QHS. per collateral from DALIA Fernandez, pt has SI at baseline and does not F/U with aftercare once discharged from the hospital. 04/07: reports good sleep last night, denies SI, reports mood is fine. 04/08: no change in presentation. past 2 nights has refused HS meds at HS, then asked for them later in the night (0130 two nights ago, 0430 last night). T/C giselle Dx and trial of mood stabilizer, as pt does not appear to be improving appreciably with antipsychotics only, has poor sleep and excessive energy. continues constant pacing, talking to self, bizarre hand gestures. 04/10: ongoing encouragement ref med adherence Reason for continued inpatient stay Substantial Risk for: inability to function Time Spent With Patient Time: Total time managing care of this patient today ____ minutes.
[2024-04-10] MEDS: clonazePAM 0.5 MG TABLET PO ×3 (08:21→21:48)
[2024-04-10] MEDS: Nicotine Polacrilex 2 MG GUM 4 MG BUCCAL ×3 (08:21→21:50)
[2024-04-10] MEDS: Gabapentin 600 MG TABLET PO ×3 (08:21→21:49)
[2024-04-10 20:17] VITALS: RESP 18
[2024-04-11] MEDS: methADONE HCl 20 MG/2 ML ORAL.CONC 130 MG PO (07:51)
[2024-04-11] MEDS: Nicotine Polacrilex 2 MG GUM 4 MG BUCCAL ×5 (08:00→19:40)
[2024-04-11] MEDS: Gabapentin 600 MG TABLET PO ×3 (08:00→19:40)
[2024-04-11] MEDS: clonazePAM 0.5 MG TABLET PO ×3 (08:00→19:40)
--- NOTE | 2024-04-11 15:33 | P.PNPSI_ITS ---
Subjective Subjective Date of Service: 04/11/24 Reason For Visit: Crisis Interim History: no change in presentation. ambivalent about leaving thursday. per staff, malodorous. taking meds. informed DALIA Fernandez he would prefer to stay until thursday. Mental Status Exam Mental Status Exam Narrative: Appearance: wearing hospital attire, poor hygiene Behavior: cooperative Psychomotor: pacing, restless Speech: mostly clear, normal rate/rhythm/volume, spontaneous TP: linear TC: Tx Mood: fine Affect: constricted, normo-intense, non-labile SI: none expressed HI: none expressed VH/AH: none expressed Delusions: none expressed Insight/judgment: impaired x 2. Memory/cog: alert, oriented x 3. Diagnostics Vital Signs (24Hr): Vital Signs - 24 hr 04/10/24 20:17 Respiratory Rate 18 BMI result Body Mass Index 21.4 Medications Medications Current Medications Acetaminophen (Acetaminophen 325 Mg Tablet) 650 mg PO Q6H PRN PRN Reason: Headache/Pain Mild Scale (1-3) Al Hydroxide/Mg Hydroxide (Magnesium Hydrox/Alum Hydrox 30 Ml Oral.Susp) 30 ml PO Q6H PRN PRN Reason: Heartburn/Nausea Clonazepam (Clonazepam 0.5 Mg Tablet) 0.5 mg PO BID [facility] Last Admin: 04/11/24 08:00 Dose: 0.5 mg Clonazepam (Clonazepam 0.5 Mg Tablet) 0.5 mg PO BID PRN PRN Reason: moderate/severe anxiety/sleep Last Admin: 04/11/24 13:26 Dose: 0.5 mg Gabapentin (Gabapentin 600 Mg Tablet) 600 mg PO TID [facility] Last Admin: 04/11/24 08:00 Dose: 600 mg Magnesium Hydroxide (Milk Of Magnesia 30 Ml Oral.Susp) 30 ml PO DAILY PRN PRN Reason: Constipation Methadone HCl (Methadone Hcl 20 Mg/2 Ml Oral.Conc) 130 mg PO DAILY@0800 [facility] Last Admin: 04/11/24 07:51 Dose: 130 mg Nicotine (Nicotine 14 Mg Patch.Td24) 14 mg TRANSDERMA DAILY [facility] Last Admin: 04/11/24 08:02 Dose: Not Given Nicotine Polacrilex (Nicotine Polacrilex 2 Mg Gum) 2 mg BUCCAL Q1H PRN PRN Reason: Nicotine Cravings Last Admin: 04/09/24 13:28 Dose: 2 mg Nicotine Polacrilex (Nicotine Polacrilex 2 Mg Gum) 4 mg BUCCAL Q2H PRN PRN Reason: nicotine cravings Last Admin: 04/11/24 13:34 Dose: 4 mg Nystatin (Nystatin Cream 15 Gm Tube) 1 appl TOPICAL BID PRN; Protocol PRN Reason: fundal infection Olanzapine (Olanzapine Odt 10 Mg Tab.Rapdis) 10 mg TRANSLINGU TID PRN PRN Reason: agitation Last Admin: 03/31/24 04:50 Dose: 10 mg Olanzapine (Olanzapine Odt 10 Mg Tab.Rapdis) 30 mg TRANSLINGU BEDTIME [facility] Last Admin: 04/10/24 21:48 Dose: 30 mg Ondansetron HCl (Ondansetron Odt 4 Mg Tab.Rapdis) 4 mg TRANSLINGU Q6H PRN PRN Reason: Nausea and Vomiting Senna/Docusate Sodium (Sennosides/Docusate Sodium Tablet) 1 tab PO BID PRN PRN Reason: constipation Simethicone (Simethicone 80 Mg Tab.Chew) 80 mg PO QIDWMHS PRN PRN Reason: Gas Last Admin: 04/04/24 18:37 Dose: 80 mg Allergies Allergies Allergy/AdvReac Type Severity Reaction Status Date / Time haloperidol [From Haldol] AdvReac Severe tongue Verified 07/13/23 14:18 swelling Assessment & Plan Assessment & Plan (1) Opiate dependence: Status: Acute Code(s): F11.20 - Opioid dependence, uncomplicated (2) Schizophrenia, paranoid, chronic with acute exacerbation: Status: Acute Code(s): F20.0 - Paranoid schizophrenia Plan Pt is a 33-year-old male with a PMH significant for?opioid dependence on methadone, hx of IVDU, peripheral neuropathy, hx of osteomyelitis of great toe, anxiety, and depression who is admitted to [facility] psychiatry unit for auditory hallucinations and suicidal ideations. Apparently these have been worsening for the past few weeks, though he denies any specific plan. Reported having bugs and side of his head that would crawl in and out of his eyes and that he had people running around side of his head. PLAN 03/28- increase olanzapine to 10mg po BID. Olanzapine 10mg po q6h prn agitation, clonazepam 0.5mg po BID, in addition to clonazepam 0.5mg po BID PRN severe anxious mood s/s to acute psychosis. 8/27: refusing antipsychotics. agrees to take zyprexa 20 tonight rather than 10 BID. signed CV. 03/30: took meds last night. pacing, hand gestures. also greeted MD in [place]. no complaints or requests. likes regimen, just needs time, he says. 03/31: Continue current treatment plan. 04/01: stable presentation. continue current mgmt. 04/02: continue current management and treatment plan. 04/03: continue current management and treatment plan. 04/04: Encourage adherence. Continue current management and treatment plan. 04/05: took meds last night when had been refusing them over w/e. hypersexual, asked RN for hug. refusing clozaril re-trial. amenable only to modest zyprexa dose increase, from 20 mg QHS to 25 mg QHS. senna-colace started for constipation. 04/06: no hypersexuality noted last night. increase zyprexa to 30 mg QHS. per collateral from DLAIA Fernandez, pt has SI at baseline and does not F/U with aftercare once discharged from the hospital. 04/07: reports good sleep last night, denies SI, reports mood is fine. 04/08: no change in presentation. past 2 nights has refused HS meds at HS, then asked for them later in the night (0130 two nights ago, 0430 last night). T/C giselle Dx and trial of mood stabilizer, as pt does not appear to be improving appreciably with antipsychotics only, has poor sleep and excessive energy. continues constant pacing, talking to self, bizarre hand gestures. 04/10: ongoing encouragement ref med adherence 04/11: no change in presentation. asking for thursday discharge rather than . per DALIA Fernandez, pt may return home to live with mother. taking meds. Reason for continued inpatient stay Substantial Risk for: inability to function and rapid decompensation Time Spent With Patient Time: Total time managing care of this patient today __25__ minutes.
[2024-04-11] MEDS: OLANZapine ODT 10 MG TAB.RAPDIS 30 MG TRANSLINGU (19:40)
[2024-04-11 20:23] VITALS: RESP 18
[2024-04-12] MEDS: methADONE HCl 20 MG/2 ML ORAL.CONC 130 MG PO (08:13)
[2024-04-12] MEDS: Gabapentin 600 MG TABLET PO ×3 (08:44→20:38)
[2024-04-12] MEDS: clonazePAM 0.5 MG TABLET PO ×3 (08:44→20:38)
[2024-04-12] MEDS: Nicotine Polacrilex 2 MG GUM 4 MG BUCCAL ×4 (08:46→20:39)
[2024-04-12] MEDS: Acetaminophen 325 MG TABLET 650 MG PO (11:08)
--- NOTE | 2024-04-12 15:00 | PM.PSYDC ---
DS: Providers Provider Date of Service: 04/12/24 Date of admission: 03/26/24 15:37 Primary care physician: Unknown Physician Consults: 03/26/24 19:58 Consult to Wound Care Routine Reason for consultation: feet very fungally affected ? need for wound care 03/27/24 13:07 Consult to Hospitalist Stat Comment: Consulting Provider: Hospitalist Reason For Exam: left foot ? cellulitis DS: Diagnosis Discharge Diagnosis (1) Opiate dependence: Status: Acute (2) Schizophrenia, paranoid, chronic with acute exacerbation: Status: Acute DS: Medications Discharge Medications Home Medications: Home Medications ?Medication ?Instructions ?Recorded ?Confirmed methadone 10 mg/mL oral 130 mg PO DAILY 03/26/24 03/26/24 concentrate (Methadose) Previous Rx's ?Medication ?Instructions ?Recorded gabapentin 600 mg tablet 600 mg PO TID 30 days #90 tabs 10/01/23 nicotine (polacrilex) 4 mg gum 4 mg buccal Q2H PRN nicotine 10/01/23 cravings 30 days #100 ea clonazepam 0.5 mg tablet 0.5 mg PO BID 15 days #30 tabs 04/12/24 clonazepam 0.5 mg tablet (Klonopin) 0.5 mg PO BID PRN Anxiety 7 days 04/12/24 #14 tabs naloxone 4 mg/actuation nasal 4 mg intranasal Q2M PRN opioid 04/12/24 spray (Narcan) overdose 1 day #2 ea olanzapine 20 mg tablet 30 mg (1.5 x 20 mg) PO BEDTIME 30 04/12/24 days #45 tabs Mental Status Exam Mental Status Exam Narrative: Appearance: wearing hospital attire, poor hygiene Behavior: cooperative Psychomotor: pacing, restless Speech: mostly clear, normal rate/rhythm/volume, spontaneous TP: linear TC: Tx Mood: great, looking forward to going Affect: constricted, normo-intense, non-labile SI: none HI: none VH/AH: no VH. +AH regarding the secret service. Delusions: none expressed Insight/judgment: impaired x 2. Memory/cog: alert, oriented x 3. DS: Summary Hospital Course Hospital Course: per 03/27 admission note: HPI Subjective Notes: Section 12B Medical Problems Affecting Mental Status: No (but possible cellulitis in left foot _ though prior concerns about osteo ?) Narrative: 33 yo male with psychotic disorder hx of xs walking to point that his feet are quite in bad shape=- says he walked in [place] and this cause neuropathy on his left foot (few years? ago ) He wants his clonazepam restarted 0.5mg tid- tortured with paranoid thinking - managing by walking/pacing and talking to himself. He lives with his mother- who helps him with appointments- so doesn't know his pcp name - Thinks he sees someone called Dr Bright for his psychiatric medications but tends to just end up inpatient- Prior to admission he was thinking of jumping off a bridge- so was sent to [facility] ER and then to us. He is on gabapentin for neuropathy Recently also rxed depakote and olanzapine and seroquel - but he only wants seroquel- Told him that in order for seroquel to work for his paranoia he would need much much higher dose [id number], so he agreed to olanzapine and I put seroquel as prn at night Past Psychiatric History: Two prior hospitalizations. No outpatient connections. Medical Evaluation Reviewed: Hospitalist Diego Pending reviewed [facility] eval (14 pages sent over) [facility] Medical History Routine medical exam Cellulitis of great toe, left Peripheral neuropathy History of intravenous drug abuse Opiate dependence Family History: denies Social History: lives with mother, apparently traveled to [place] at some point Substance History: denies etoh/drugs despite being on methadone Trauma History: None reported Precis: 03/28- increase olanzapine to 10mg po BID. Olanzapine 10mg po q6h prn agitation, clonazepam 0.5mg po BID, in addition to clonazepam 0.5mg po BID PRN severe anxious mood s/s to acute psychosis. 03/29: refusing antipsychotics. agrees to take zyprexa 20 tonight rather than 10 BID. signed CV. 03/30: took meds last night. pacing, hand gestures. also greeted MD in [place]. no complaints or requests. likes regimen, just needs time, he says. 03/31: Continue current treatment plan. 04/01: stable presentation. continue current mgmt. 04/02: continue current management and treatment plan. 04/03: continue current management and treatment plan. 04/04: Encourage adherence. Continue current management and treatment plan. 04/05: took meds last night when had been refusing them over w/e. hypersexual, asked RN for hug. refusing clozaril re-trial. amenable only to modest zyprexa dose increase, from 20 mg QHS to 25 mg QHS. senna-colace started for constipation. 04/06: no hypersexuality noted last night. increase zyprexa to 30 mg QHS. per collateral from DALIA Fernandez, pt has SI at baseline and does not F/U with aftercare once discharged from the hospital. 04/07: reports good sleep last night, denies SI, reports mood is fine. 04/08: no change in presentation. past 2 nights has refused HS meds at HS, then asked for them later in the night (0130 two nights ago, 0430 last night). T/C giselle Dx and trial of mood stabilizer, as pt does not appear to be improving appreciably with antipsychotics only, has poor sleep and excessive energy. continues constant pacing, talking to self, bizarre hand gestures. 04/10: ongoing encouragement ref med adherence 04/11: no change in presentation. asking for thursday discharge rather than . per DALIA Fernandez, pt may return home to live with mother. taking meds. 04/12: remains improved from admission. meds reviewed, reconciled, prescribed. 04/13: no change in presentation. discharged as per plan. Time Spent with Patient Time attestation: Total time managing care of this patient today __35__ minutes. Discharge Plan Discharge Anticipated Discharge Date/Time: 04/13/24 11:00 Patient Disposition: Home, Self-Care Discharge Diagnosis: Schizophrenia, Paranoid Type Referrals: [facility] Garcia (Therapy & Psychiatry) [Other] - 04/15/24 11:00 am (*This is your intake appointment. It is scheduled for one hour. Please do not arrive more than 7 minutes late or your appointment will be cancelled. Once you attend this appointment, you will then be set up with a therapist and a medication prescriber moving forward. ) [facility] [Provider Group] - 1 Week (This clinic has walk in hours Thursday through Thursday 830 am to 4 pm) Discharge Medications: New clonazepam 0.5 mg Tablet 0.5 mg PO BID 15 Days Qty: 30 1RF naloxone [Narcan] 4 mg/actuation spray,non-aerosol 4 mg intranasal Q2M PRN (Reason: opioid overdose) 1 Days Qty: 2 0RF Rx Instructions: spray 1 dose into ONE nostril; alternate nostrils w each dose until help arrives Continued nicotine (polacrilex) 4 mg gum 4 mg buccal Q2H PRN (Reason: nicotine cravings) 30 Days Qty: 100 0RF gabapentin 600 mg tablet 600 mg PO TID 30 Days Qty: 90 0RF methadone [Methadose] 10 mg/mL concentrate 130 mg PO DAILY Changed clonazepam [Klonopin] 0.5 mg tablet 0.5 mg PO BID [facility]D 1mg PRN (Reason: Anxiety) 7 Days Qty: 14 3RF olanzapine 20 mg Tablet 30 mg PO BEDTIME 30 Days Qty: 45 0RF Discontinued quetiapine 50 mg tablet 200 mg PO BEDTIME divalproex 500 mg Tablet,Delayed Release (Dr/Ec) 500 mg PO BID fluoxetine 10 mg Capsule 10 mg PO DAILY Discharge Orders: Discharge Order (Routine); Ordered 04/13/24 Ordered By: Ben Carvajal Diet: Advance to usual diet Activity on Discharge: As tolerated Stand Alone Forms: Patient Portal Discharge page, Community Support Print Language: Serbian Care Plan Goals: remain safe, stable, and sober in the outpatient treatment setting Health Concerns: none Plan of Treatment: take medications as prescribed, attend appointments as scheduled Assessment: not at imminent risk of harm to self or others Discharge Date/Time: 04/13/24 10:38
[2024-04-12 20:00] VITALS: RESP 16
[2024-04-12] MEDS: OLANZapine ODT 10 MG TAB.RAPDIS 30 MG TRANSLINGU (20:38)
[2024-04-13] MEDS: methADONE HCl 20 MG/2 ML ORAL.CONC 130 MG PO (08:05)
[2024-04-13] MEDS: Nicotine Polacrilex 2 MG GUM 4 MG BUCCAL (08:06)
[2024-04-13] MEDS: clonazePAM 0.5 MG TABLET PO ×2 (08:06→10:35)
[2024-04-13] MEDS: Gabapentin 600 MG TABLET PO (08:06)
== END 2024-04-13 10:38 | disposition home or self-care (01) | DRG 750 ==
PROVIDERS: Admitting Provider Psychiatry & Neurology Psychiatry; Visit Provider Psychiatry & Neurology Psychiatry
DX: F20.0 Paranoid schizophrenia (principal); R45.851 Suicidal ideations; F11.20 Opioid dependence, uncomplicated; G62.9 Polyneuropathy, unspecified; F17.210 Nicotine dependence, cigarettes, uncomplicated; Z71.6 Tobacco abuse counseling; Z79.899 Other long term (current) drug therapy

== ENCOUNTER → 2024-03-26 15:37 | Outpatient (BNV) | payer OTHER, SELFPAY | PROVIDERS: Admitting Provider Psychiatry & Neurology Psychiatry; Visit Provider Student in an Organized Health Care Education/Training Program | DX: Z00.8 Encounter for other general examination (principal) | CPT/HCPCS: 99429; 99499 ==

== ENCOUNTER → 2024-03-26 15:37 | Outpatient (BNV) | payer OTHER, SELFPAY | PROVIDERS: Admitting Provider Psychiatry & Neurology Psychiatry; Visit Provider Social Worker | DX: F20.0 Paranoid schizophrenia (principal); F11.20 Opioid dependence, uncomplicated | CPT/HCPCS: 99231; 99232; 99239 ==

== ENCOUNTER 2024-04-18 16:57 | Inpatient (IN) | payer OTHER, SELFPAY ==
[2024-04-18 17:18] VITALS: BP 92/52; PULSE 72; RESP 18; TEMP 36.7; O2SAT 97
--- NOTE | 2024-04-18 18:43 | PC.ADMIT ---
Car Ann, a 33 year old male arrived on M5 @ 17:16 from [facility] on a section 12B. Car is well known to [facility] with a recent stay on M# and dc on 03/26/24, previous to that he was at [place] in March, [facility] in January, [place] in January and [facility] in Sep and October of this year. 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 Car was endorsing SI with a plan to jump off a bridge. Car uses [facility] clinic, Skin check performed- has multiple sores on his feet in various stages of healing-photos sent to provider. Car was irritable and did not want to participate in the admission process. Patient re-oriented to unit and placed on 15 minute checks for safety.
[2024-04-18 20:00] VITALS: BP 156/58; PULSE 72; RESP 16; TEMP 36.3; O2SAT 95
[2024-04-19] MEDS: Nicotine Polacrilex 2 MG GUM 4 MG BUCCAL ×5 (03:04→21:09)
--- NOTE | 2024-04-19 06:36 | PC.NURSE ---
RN APPROACHED PT AT APPROXIMATELY 0632 TO OFFER A RELEASE OF INFORMATION FOR THE [facility] M[facility]ONE [facility] TO VERIFY HIS DOSE. PT REFUSED TO SIGN THE PAPER, STATING THEY'LL GIVE IT TO ME . PT WAS EDUCATED THAT HIS METHADONE COULD NOT BE ADMINISTERED WITHOUT BEING VERIFIED. PT STATED GET OUT OF MY FACE .
[2024-04-19 08:00] VITALS: RESP 18
[2024-04-19] MEDS: clonazePAM 0.5 MG TABLET PO ×4 (08:17→21:01)
--- NOTE | 2024-04-19 08:55 | HE.PHANOTE ---
RE: METHADONE DOSING Last dose of methadone 140 mg was given on 04/17/24 @0858 at [facility] [phone] per Jose M Ayoub LPN.
--- NOTE | 2024-04-19 09:00 | HO.PSYADMNOT ---
HPI Date of Service: 04/19/24 Chief Complaint: Unspec schizophrenia spectrum &other psychotic d/o Sources of Information: patient interviewed, chart reviewed and crisis/core team assessment reviewed HPI Subjective Notes: Spencer Warning, Conditional Voluntary and Section 12B Narrative: Pt is a 33 yo male with hx of Schizophrenia, depression, opioid dependence, chronic left toe osteomylitis, chronic neuropathic b/l lower limb pain, b/l foot wounds who was recently discharged from on 04/12 after short stay, who sent to ED on for disorganized, psychotic behavior; in ED, reporting SI to jump off bridge. Pt has had a string of inpatient admissions over the summer ([facility] in March, [facility] in January, [facility] in January; also [facility] in Sep and October of this year). Patient is a limited historian, willingly participating in discussion but often to internally preoccupied and guarded to finish his sentences. Patient reports that he continues to take his Zyprexa and gabapentin on discharge last week. He talked about being involved in a [employer] organization...protecting the world... 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 And that he got overwhelmed by bad news relating to info from the [employer] organization that prompted him to feel suicidal. It is not clear if patient told his mother he was suicidal; he said that she thought he needed to go to the hospital because he was pacing nonstop outside and worried about the neighbor seeing him. Patient said that pacing helps him to be distracted from is worries and auditory hallucinations which he describes as people talking into my head.... Long conversations... A bunch of people... It is like doing a job. Patient said now on the unit he is feeling some relief. He says he still has SI at times but is very vague. Patient says that Zyprexa is the right medication for him and though he does not want it he will continue taking it; he is not open at all to any medication changes. Past Psychiatric History: Two prior hospitalizations. No outpatient connections. Medical Evaluation Reviewed: Hospitalist Diego Pending [facility] Medical History Routine medical exam Cellulitis of great toe, left Peripheral neuropathy History of intravenous drug abuse Opiate dependence Family History: denies Social History: lives with mother, apparently traveled to [place] at some point Substance History: opioid use disorder, on Methadone Trauma History: None reported Diagnostics Vital Signs (24Hr): Vital Signs - 24 hr 04/18/24 17:18 04/18/24 20:00 Temperature 98.1 F 97.3 F Pulse Rate 72 72 Respiratory Rate 18 16 Blood Pressure 92/52 L 156/58 H Pulse Oximetry 97 95 Oxygen Delivery Method Room Air Room Air Meds/Allergies Meds Home Medications ?Medication ?Instructions ?Recorded ?Confirmed ?Type methadone 10 mg/mL oral 140 mg PO DAILY 03/26/24 04/19/24 History concentrate (Methadose) Allergies Allergies Allergy/AdvReac Type Severity Reaction Status Date / Time haloperidol [From Haldol] AdvReac Severe tongue Verified 07/13/23 14:18 swelling Mental Status Exam Mental Status Exam Narrative: Pt is alert and oriented; behavior is guarded but not-uncooperative, drowsy, disorganized, pacing halls non-stop, marginally cooperative; patient is not in distress; dressed in hospital attire, disheveled, poor hygiene; mood is described as anxious though affect blunted; eye contact limited; Speech is with thought blocking, slowed/soft, hard to get words out... not pressured; psychomotor agitation present; thought process goal directed, but concrete and distracted; Thought content is on paranoid ideations with grandiosity; +SI; no HI. Command AH Patients insight and judgment impaired. Assessment & Plan Assessment & Plan (1) Schizophrenia, paranoid, chronic with acute exacerbation: Status: Acute Code(s): F20.0 - Paranoid schizophrenia (2) Foot osteomyelitis, left: Status: Acute Code(s): M86.9 - Osteomyelitis, unspecified (3) Opiate dependence: Status: Acute Code(s): F11.20 - Opioid dependence, uncomplicated (4) Peripheral neuropathy: Status: Acute Code(s): G62.9 - Polyneuropathy, unspecified Plan Pt is a 33 yo male with hx of Schizophrenia, depression, opioid dependence, chronic left toe osteomylitis, chronic neuropathic b/l lower limb pain, b/l foot wounds who was recently discharged from on 04/12 after short stay, who sent to ED on 12B for disorganized, psychotic behavior; in ED, reporting SI to jump off bridge. Pt has had a string of inpatient admissions over the summer ([facility] in March, [facility] in January, [facility] in January; also [facility] in Sep and October of this year). Patient is a limited historian, willingly participating in discussion but often to internally preoccupied and guarded to finish his sentences. Patient reports that he continues to take his Zyprexa and gabapentin on discharge last week. He talked about being involved in a [employer] organization...protecting the world... 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 And that he got overwhelmed by bad news relating to info from the [employer] organization that prompted him to feel suicidal. It is not clear if patient told his mother he was suicidal; he said that she thought he needed to go to the hospital because he was pacing nonstop outside and worried about the neighbor seeing him. Patient said that pacing helps him to be distracted from is worries and auditory hallucinations which he describes as people talking into my head.... Long conversations... A bunch of people... It is like doing a job. Patient said now on the unit he is feeling some relief. He says he still has SI at times but is very vague. Patient says that Zyprexa is the right medication for him and though he does not want it he will continue taking it; he is not open at all to any medication changes. Formulation/clinical reasoning: long hx of treatment resistant psychosis, chronic medication non-adherence and almost monthly hospitalizations. Addiction has had numerous medication trials that have only been minimally, partially helpful at best. Patient says that he took medication on discharge; it is not clear if this is accurate or why he decompensated. If he did continue taking medications, Perhaps on medications and on a psychiatric unit, which is a very structured environment, he can become okay enough, with SI resolving; but wants discharge back to the community, even on medications, the environment is simply too overwhelming and he quickly decompensates. Or perhaps he stops taking medication. -will try and obtain collateral PLAN: CV q15min Restart Zyprexa/Zydis 30mg qhs Restart Gabapentin 600mg TID Patient educated on: diagnosis, medication risk/benefits and medical condition Informed Consent: understands Reason for continued inpatient stay Substantial Risk for: inability to function Statement Statement: I have reviewed the history and physical and performed a pertinent examination on my patient. No changes have occurred unless specified. If the History and Physical was not performed prior to admission, the Hospitalist's service will be consulted for completing the admission physical. Time Spent With Patient Time: Total time managing care of this patient today ____ minutes.
--- NOTE | 2024-04-19 09:08 | HO.PM.IMCN ---
History of Present Illness Data of Consult Service Date: 04/19/24 Requesting physician: Geronimo Dey Primary Care Provider: None Physician HPI Reason for consult: medical h&P 33-year-old male with history of opioid dependence on methadone, history of IV drug abuse, peripheral neuropathy, history of osteomyelitis of the left great toe, anxiety and depression admitted to adult Psychiatry from [facility] with consult placed hospitalist service for medical H and P. The patient is a very vague historian offering little information. In August of 2023 he was diagnosed with osteomyelitis of the left great toe and did not follow through with treatment. He was seen by infectious disease, recommending amputation which the patient declined, IV antibiotics which again the patient declined, and offered oral antibiotics though this is unlikely to clear the bone infection. The treatment was to include indefinite treatment with Bactrim. The patient declines any acute complaints surrounding the toe and denies any pain. No purulent drainage. He is afebrile. He does not wish to treat at this time and there was no evidence of acute infection. He denies complaints at this time otherwise though again is a very limited historian. While at [facility], hematology studies unremarkable. Renal function normal, electrolyte levels normal. Glucose 67. TSH within normal limits. Review of Systems Review of Systems: General: No fevers, malaise, unintentional weight loss HEENT: No blurred vision, diplopia. No sore throat, nasal congestion, rhinorrhea, sinus pain, ear pain Cardiovascular: No chest pain, palpitations, or leg edema Respiratory: No shortness of breath, wheezing, cough GI: No abdominal pain, nausea, vomiting, diarrhea, constipation, melena, hematochezia : No dysuria, hematuria, increased urinary frequency, decreased urinary output MSK: No myalgia, back pain Neuro: No headaches, weakness, paresthesias Skin: No rashes. +L foot ulcer Yes Other (ROS limited as pt is poor historian and vague) [facility] Medical History Routine medical exam Cellulitis of great toe, left Peripheral neuropathy History of intravenous drug abuse Opiate dependence Social History Household Members: Family Household Members Other:: MOM Housing: House Do you presently have visiting nurse or other home services: No Unable to assess alcohol history related to: Refusing to respond Patient Tobacco Use Status: Current everyday Tobacco user Tobacco use type: Cigarette Cigarette Packs Per Day: 1 Cigarettes Per Day: 20.0 Years Smoked: 19 Smoked in Last 30 Days: No e-Cigarette/Vaping Use: Never Used Patient Interested in Nicotine Replacement: Yes Patient Given Instructions on How to Stop Smoking: No (REFUSED) Second Hand Smoke Exposure: No Use of substances other than those prescribed or required for medical reasons: No Currently Displaying Signs/Symptoms of Drug Intoxication Withdrawal: No Advance Directives: No Advance Directives Information Provided: No Do you have thoughts of harming others: None Do you have a plan to hurt others: No Plan Recently lost weight without trying: Unsure Eating poorly because of decreased appetite: No Nutrition Risks: No Nutritional Risk Poor oral hygiene: Yes service: No Sexual orientation: Straight/Heterosexual Meds Allergies Allergy/AdvReac Type Severity Reaction Status Date / Time haloperidol [From Haldol] AdvReac Severe tongue Verified 07/13/23 14:18 swelling Active Medications: Current Medications Acetaminophen (Acetaminophen 325 Mg Tablet) 650 mg PO Q6H PRN PRN Reason: Headache/Pain Mild Scale (1-3) Al Hydroxide/Mg Hydroxide (Magnesium Hydrox/Alum Hydrox 30 Ml Oral.Susp) 30 ml PO Q6H PRN PRN Reason: Heartburn/Nausea Clonazepam (Clonazepam 0.5 Mg Tablet) 0.5 mg PO BID [facility] Last Admin: 04/19/24 08:17 Dose: 0.5 mg Folic Acid (Folic Acid 1 Mg Tablet) 1 mg PO DAILY [facility] Hydroxyzine HCl (Hydroxyzine Hcl 25 Mg Tablet) 25 mg PO Q6H PRN PRN Reason: Anxiety Magnesium Hydroxide (Milk Of Magnesia 30 Ml Oral.Susp) 30 ml PO DAILY PRN PRN Reason: Constipation Nicotine (Nicotine 21 Mg Patch.Td24) 21 mg TRANSDERMA DAILY PRN PRN Reason: smoking cessation Nicotine Polacrilex (Nicotine Polacrilex 2 Mg Gum) 4 mg BUCCAL Q2H PRN PRN Reason: Nicotine Cravings Last Admin: 04/19/24 03:04 Dose: 4 mg Olanzapine (Olanzapine 5 Mg Tablet) 5 mg PO TID PRN PRN Reason: agitation Olanzapine (Olanzapine Odt 10 Mg Tab.Rapdis) 20 mg TRANSLINGU BEDTIME [facility] Last Admin: 04/18/24 20:54 Dose: Not Given Thiamine HCl (Thiamine Hcl 100 Mg Tablet) 100 mg PO DAILY [facility] Trazodone HCl (Trazodone Hcl 50 Mg Tablet) 50 mg PO BEDTIME MRX1 PRN PRN Reason: Insomnia Home Medications ?Medication ?Instructions ?Recorded ?Confirmed ?Last Taken ?Type methadone 10 mg/mL oral 140 mg PO DAILY 03/26/24 04/19/24 04/17/24 09:00 History concentrate (Methadose) Physical Exam Vital Signs and Narrative: Vital Signs: Last Vital Signs Temp 97.3 F 04/18/24 20:00 Pulse 72 04/18/24 20:00 Resp 16 04/18/24 20:00 BP 156/58 H 04/18/24 20:00 Pulse Ox 95 04/18/24 20:00 O2 Del Method Room Air 04/18/24 20:00 Constitutional - Awake and Alert, No apparent distress Eyes - EOMs appear in tact Cardiovascular - S1S2, RRR, No edema Respiratory - Normal lung expansion, Normal respiratory effort, No respiratory distress, CTA bilaterally Gastrointestinal - declines Extremities - no calf tenderness bilaterally, no swelling Musculoskeletal - Normal inspection, normal ROM Skin - Warm/Dry. L foot with overgrown toenails and dirt with stage 2 ulceration on the dorsum of the L great toe wihtout surrounding erythema or warmth. No purulent drainage. Hyperpigmentation of the dorsum of the L foot. Pt declines further foot exam and decline to show provider R foot Neurological - Declines CN exam though EOMs appear in tact, pupils equal in size and appropriate in size for lighting. No facial droop or slurred speech Assessment and Plan (1) Foot osteomyelitis, left: Status: Acute (2) Medical clearance for psychiatric admission: Status: Acute Plan 33-year-old male with history of anxiety, depression, opioid dependence on methadone, peripheral neuropathy, history of IV drug abuse in remission admitted to Psychiatry with consult placed hospitalist service for medical H and P. #Mood/psychotic d/o -plan per psychiatry #Stage 2 non-pressure ulcer L great toe with probable chronic osteomyelitis -Previously seen by ID in 08/2023 recommending amp for definitive cure which pt declined, IV abx with about 70% chance of NO cure which patient declined. Had initially agreed to prolonged PO abx with augmentin x2 weeks and bactrim po x 4 weeks then possibly bactrim MWF indefinitely. Pt did not follow up with treatment and is not interested in treatment. It is highly unlikely the osteomyelitis has been cured but does not appear to be causing any acute issues nor is there evidence of acute infection at time of exam -recommend wound care consult -encourage hygeine with showers and encourage pt to wear socks while ambulating #opioid dependence -continue methadone #peripheral neuropathy -continue gabapentin Thank you for allowing me to participate in this consult. Will continue following for results. Please do not hesitate to call for further questions or for any acute medical issues.
[2024-04-19] MEDS: methADONE HCl 20 MG/2 ML ORAL.CONC 140 MG PO (09:39)
[2024-04-19] MEDS: Gabapentin 600 MG TABLET PO ×3 (09:40→21:01)
--- NOTE | 2024-04-19 16:04 | HO.WOUND ---
Wound Consult: Initial 33yr old male admitted to [facility] [place] on ? to the Inpatient Behavioral Health Unit - See progress notes and H&P for detailed history. Patient is agreeable to assessment and photo documentation - requested to stay in room and not go to treatment room. He reports he is unclear as to how the wounds originated but reports he believes wearing the same shoes and not being able to take care of them is impacting wound development. He recalls meeting me on previous admissions, he was followed for several months with no wound closure. On previous admissions he was walking and pacing the halls as part of his coping and chart review reveals he continues to walk often this admission. He kept his eyes closed for most of my assessment. The patient reports neuropathy to both feet at times. Patient will benefit from nail trimming. At time of discharge consider referral to outpt wound clinic and or Podiatry. The patient has several areas of injury in various stages of healing. His feet were washed of debris and dirt and assessed. There are many peeling callused dry blisters noted to his feet and from my assessment one open wound to the left great toe. The wound is approximately 0.5cm x 0.4cm x 0.1cm red moist wound bed - there are no s/s of infection at this time. The patient is resistant to topical interventions at this time - he did allow a foam dressing application to the great toe - he will benefit from Durafiber AG application. This can stay in place for up to 7 days. The remainder of the wounds appear dry stable callus or scabs. I would recommend reminders to make sure to take rests off of his feet throughout the day. Providing foot soaks to the patient may allow for periods of rest and foot assessment as well as cleansing to decrease the antimicorbial burden. Recommendations: 1. Provide adequate and supplemental nutrition. 2. Left Great Toe - Provide patient with PH balanced soap foot soaks in basin (can be daily or when patient is agreeable). Cleanse wound bed with NS, pat dry. Apply Skin Prep barrier to periwound - cover wound beds with Durafiber AG, cover with foam dressing. Change every 3 days.
[2024-04-19] MEDS: OLANZapine ODT 10 MG TAB.RAPDIS 30 MG TRANSLINGU (21:00)
[2024-04-20] MEDS: Nicotine Polacrilex 2 MG GUM 4 MG BUCCAL ×6 (04:31→21:54)
[2024-04-20] MEDS: methADONE HCl 20 MG/2 ML ORAL.CONC 140 MG PO (07:48)
[2024-04-20] MEDS: Thiamine HCL 100 MG TABLET PO (08:26)
[2024-04-20] MEDS: clonazePAM 0.5 MG TABLET PO ×4 (08:26→21:48)
[2024-04-20] MEDS: Folic Acid 1 MG TABLET PO (08:26)
[2024-04-20] MEDS: Gabapentin 600 MG TABLET PO ×3 (08:26→21:48)
--- NOTE | 2024-04-20 11:22 | HO.PSYCHPN ---
Subjective Subjective Date of Service: 04/20/24 Reason For Visit: Unspec schizophrenia spectrum &other psychotic d/o Interim History: Met?with?patient;?discussed?with?team? Patient?remains?with?same?presentation,?pacing?the?halls?incessantly. Difficult?with?which?to?engage?regarding?psychiatric?illness.??He?remains?internally?preoccupied, Not?finishing?sentences,?vague. He reports AH of voices telling him to kill himself and VH of invisible people, with invisible guns that they point at him so he has to keep walking to get away from them... Interestingly,?if?conversation?is?switch?to?something?neutral,?his?interest?in?history?or?superficial?topics,? Patient is able to talk more clearly,?even?spontaneously,?asking?questions,?having?full?sentences Mental Status Exam Mental Status Exam Narrative: Pt is alert and oriented; behavior is guarded, superficially cooperative, disorganized, pacing halls non-stop; patient is not in distress; dressed in hospital attire, disheveled, poor hygiene; mood is described as anxious though affect blunted; eye contact limited; Speech is with thought blocking, slowed/soft, hard to get words out... not pressured; psychomotor agitation present; thought process goal directed, but concrete and distracted; Thought content is on paranoid ideations with grandiosity; intermittent SI; no HI. Command AH. Patients insight and judgment impaired. Medications Medications Current Medications Acetaminophen (Acetaminophen 325 Mg Tablet) 650 mg PO Q6H PRN PRN Reason: Headache/Pain Mild Scale (1-3) Al Hydroxide/Mg Hydroxide (Magnesium Hydrox/Alum Hydrox 30 Ml Oral.Susp) 30 ml PO Q6H PRN PRN Reason: Heartburn/Nausea Clonazepam (Clonazepam 0.5 Mg Tablet) 0.5 mg PO BID [facility] Last Admin: 04/20/24 08:26 Dose: 0.5 mg Clonazepam (Clonazepam 0.5 Mg Tablet) 0.5 mg PO BID PRN PRN Reason: anxiety/restlessness Last Admin: 04/19/24 18:30 Dose: 0.5 mg Folic Acid (Folic Acid 1 Mg Tablet) 1 mg PO DAILY [facility] Last Admin: 04/20/24 08:26 Dose: 1 mg Gabapentin (Gabapentin 600 Mg Tablet) 600 mg PO TID [facility] Last Admin: 04/20/24 08:26 Dose: 600 mg Hydroxyzine HCl (Hydroxyzine Hcl 25 Mg Tablet) 25 mg PO Q6H PRN PRN Reason: Anxiety Magnesium Hydroxide (Milk Of Magnesia 30 Ml Oral.Susp) 30 ml PO DAILY PRN PRN Reason: Constipation Methadone HCl (Methadone Hcl 20 Mg/2 Ml Oral.Conc) 140 mg PO DAILY [facility] Last Admin: 04/20/24 07:48 Dose: 140 mg Nicotine (Nicotine 21 Mg Patch.Td24) 21 mg TRANSDERMA DAILY PRN PRN Reason: smoking cessation Nicotine Polacrilex (Nicotine Polacrilex 2 Mg Gum) 4 mg BUCCAL Q2H PRN PRN Reason: Nicotine Cravings Last Admin: 04/20/24 08:27 Dose: 4 mg Olanzapine (Olanzapine 5 Mg Tablet) 5 mg PO TID PRN PRN Reason: agitation Olanzapine (Olanzapine Odt 10 Mg Tab.Rapdis) 30 mg TRANSLINGU BEDTIME [facility] Last Admin: 04/19/24 21:00 Dose: 30 mg Thiamine HCl (Thiamine Hcl 100 Mg Tablet) 100 mg PO DAILY [facility] Last Admin: 04/20/24 08:26 Dose: 100 mg Trazodone HCl (Trazodone Hcl 50 Mg Tablet) 50 mg PO BEDTIME MRX1 PRN PRN Reason: Insomnia Allergies Allergies Allergy/AdvReac Type Severity Reaction Status Date / Time haloperidol [From Haldol] AdvReac Severe tongue Verified 07/13/23 14:18 swelling Assessment & Plan Assessment & Plan (1) Schizophrenia, paranoid, chronic with acute exacerbation: Status: Acute Code(s): F20.0 - Paranoid schizophrenia (2) Foot osteomyelitis, left: Status: Acute Code(s): M86.9 - Osteomyelitis, unspecified (3) Peripheral neuropathy: Status: Acute Code(s): G62.9 - Polyneuropathy, unspecified (4) Opiate dependence: Status: Acute Code(s): F11.20 - Opioid dependence, uncomplicated Plan Pt is a 33 yo male with hx of Schizophrenia, depression, opioid dependence, chronic left toe osteomylitis, chronic neuropathic b/l lower limb pain, b/l foot wounds who was recently discharged from on 04/12 after short stay, who sent to ED on 12 for disorganized, psychotic behavior; in ED, reporting SI to jump off bridge. Pt has had a string of inpatient admissions over the summer ([place] in March, [place] in January, [place] in January; also [facility] in Sep and October of this year). Patient is a limited historian, willingly participating in discussion but often to internally preoccupied and guarded to finish his sentences. Patient reports that he continues to take his Zyprexa and gabapentin on discharge last week. He talked about being involved in a [employer]...protecting the world... 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 And that he got overwhelmed by bad news relating to info from the [employer] organization that prompted him to feel suicidal. It is not clear if patient told his mother he was suicidal; he said that she thought he needed to go to the hospital because he was pacing nonstop outside and worried about the neighbor seeing him. Patient said that pacing helps him to be distracted from is worries and auditory hallucinations which he describes as people talking into my head.... Long conversations... A bunch of people... It is like doing a job. Patient said now on the unit he is feeling some relief. He says he still has SI at times but is very vague. Patient says that Zyprexa is the right medication for him and though he does not want it he will continue taking it; he is not open at all to any medication changes. Formulation/clinical reasoning: long hx of treatment resistant psychosis, chronic medication non-adherence and almost monthly hospitalizations. Addiction has had numerous medication trials that have only been minimally, partially helpful at best. Patient says that he took medication on discharge; it is not clear if this is accurate or why he decompensated. If he did continue taking medications, Perhaps on medications and on a psychiatric unit, which is a very structured environment, he can become okay enough, with SI resolving; but wants discharge back to the community, even on medications, the environment is simply too overwhelming and he quickly decompensates. Or perhaps he stops taking medication. -will try and obtain collateral Hospital course: 04/20 Patient?remains?with?same?presentation,?pacing?the?halls?incessantly. Difficult?with?which?to?engage?regarding?psychiatric?illness.??He?remains?internally?preoccupied, Not?finishing?sentences,?vague. He reports AH of voices telling him to kill himself and VH of invisible people, with invisible guns that they point at him so he has to keep walking to get away from them... -reviewed Hospitalist PA assessment -Interestingly,?if?conversation?is?switch?to?something?neutral,?his?interest?in?history?or?superficial?topics,? Patient is able to talk more clearly,?even?spontaneously,?asking?questions,?having?full?sentences PLAN: CV q15min Restart Zyprexa/Zydis 30mg qhs Restart Gabapentin 600mg TID Hospitalist PA assessment: osteomyelitis...does not appear to be causing any acute issues nor is there evidence of acute infection at time of exam Patient educated on: diagnosis Informed Consent: does not understand Reason for continued inpatient stay Substantial Risk for: rapid decompensation Time Spent With Patient Time: Total time managing care of this patient today ____ minutes.
--- NOTE | 2024-04-20 19:48 | PC.NURSE ---
Patient irritable and demanding on this shift. Frequent PRN requests and constant requests for snacks. He declined foot soaks x 2 and refused to allow this technical writer to asses his feet. Clonazepam PRN x 2 on this shift. When this writr encouraged him to save one of these prns for the next shift and consider taking something else for anxiety, he angrily demanded, I need it NOW! I don't want anything else!
[2024-04-20] MEDS: OLANZapine ODT 10 MG TAB.RAPDIS 30 MG TRANSLINGU (21:49)
[2024-04-21] MEDS: clonazePAM 0.5 MG TABLET PO ×4 (07:18→20:47)
[2024-04-21] MEDS: Nicotine Polacrilex 2 MG GUM 4 MG BUCCAL ×3 (07:18→20:46)
[2024-04-21] MEDS: methADONE HCl 20 MG/2 ML ORAL.CONC 140 MG PO (07:46)
[2024-04-21 08:00] VITALS: BP 105/69; PULSE 106; RESP 18; TEMP 36.6; O2SAT 99
[2024-04-21] MEDS: Gabapentin 600 MG TABLET PO ×3 (08:05→20:47)
--- NOTE | 2024-04-21 10:11 | HO.PSYCHPN ---
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 Patient again refuses any medication change. But he says my affect is not so bad right? Patient says that while he agrees he could be at home on the same medication dose, he came to the hospital to be around people and to go to groups (though he does not go to groups or talk to anyone) because he is very isolated at home, does not have any friends, and is just alone all the time. He said that he just needs more time and that more time in the hospital he will start to feel better and ready to go home. Thinks that more time on Zyprexa will make a difference. Patient shared that the 1st time he got psychosis was about 5 years ago and for the 1st 3 years he never went to the hospital; he said over the past year he has started going to the hospital, thinks about once a month but is not sure; he says he is also now open to taking medication, specifically Zyprexa. Mental Status Exam Mental Status Exam Narrative: Pt is alert and oriented; behavior is guarded, superficially cooperative, disorganized, pacing halls non-stop and talking to self; patient is not in distress; dressed in hospital attire, disheveled, poor hygiene; mood is described as anxious though affect blunted; eye contact limited; Speech is with thought blocking, slowed/soft, hard to get words out... not pressured; psychomotor agitation present; thought process goal directed, but concrete and distracted; Thought content is on paranoid ideations with grandiosity; passive, intermittent SI, no intentions/plans; no HI. Command AH. Patients insight and judgment impaired. Diagnostics Vital Signs (24Hr): Vital Signs - 24 hr 04/21/24 08:00 Temperature 97.8 F Pulse Rate 106 H Respiratory Rate 18 Blood Pressure 105/69 Pulse Oximetry 99 Oxygen Delivery Method Room Air Medications Medications Current Medications Acetaminophen (Acetaminophen 325 Mg Tablet) 650 mg PO Q6H PRN PRN Reason: Headache/Pain Mild Scale (1-3) Al Hydroxide/Mg Hydroxide (Magnesium Hydrox/Alum Hydrox 30 Ml Oral.Susp) 30 ml PO Q6H PRN PRN Reason: Heartburn/Nausea Clonazepam (Clonazepam 0.5 Mg Tablet) 0.5 mg PO BID [facility] Last Admin: 04/21/24 08:05 Dose: 0.5 mg Clonazepam (Clonazepam 0.5 Mg Tablet) 0.5 mg PO BID PRN PRN Reason: anxiety/restlessness Last Admin: 04/21/24 07:18 Dose: 0.5 mg Folic Acid (Folic Acid 1 Mg Tablet) 1 mg PO DAILY [facility] Last Admin: 04/21/24 08:06 Dose: Not Given Gabapentin (Gabapentin 600 Mg Tablet) 600 mg PO TID [facility] Last Admin: 04/21/24 08:05 Dose: 600 mg Hydroxyzine HCl (Hydroxyzine Hcl 25 Mg Tablet) 25 mg PO Q6H PRN PRN Reason: Anxiety Magnesium Hydroxide (Milk Of Magnesia 30 Ml Oral.Susp) 30 ml PO DAILY PRN PRN Reason: Constipation Methadone HCl (Methadone Hcl 20 Mg/2 Ml Oral.Conc) 140 mg PO DAILY [facility] Last Admin: 04/21/24 07:46 Dose: 140 mg Nicotine (Nicotine 21 Mg Patch.Td24) 21 mg TRANSDERMA DAILY PRN PRN Reason: smoking cessation Nicotine Polacrilex (Nicotine Polacrilex 2 Mg Gum) 4 mg BUCCAL Q2H PRN PRN Reason: Nicotine Cravings Last Admin: 04/21/24 07:18 Dose: 4 mg Olanzapine (Olanzapine 5 Mg Tablet) 5 mg PO TID PRN PRN Reason: agitation Olanzapine (Olanzapine Odt 10 Mg Tab.Rapdis) 30 mg TRANSLINGU BEDTIME [facility] Last Admin: 04/20/24 21:49 Dose: 30 mg Thiamine HCl (Thiamine Hcl 100 Mg Tablet) 100 mg PO DAILY [facility] Last Admin: 04/21/24 08:07 Dose: Not Given Trazodone HCl (Trazodone Hcl 50 Mg Tablet) 50 mg PO BEDTIME MRX1 PRN PRN Reason: Insomnia Allergies Allergies Allergy/AdvReac Type Severity Reaction Status Date / Time haloperidol [From Haldol] AdvReac Severe tongue Verified 07/13/23 14:18 swelling Assessment & Plan Assessment & Plan (1) Schizophrenia, paranoid, chronic with acute exacerbation: Status: Acute Code(s): F20.0 - Paranoid schizophrenia (2) Foot osteomyelitis, left: Status: Acute Code(s): M86.9 - Osteomyelitis, unspecified (3) Peripheral neuropathy: Status: Acute Code(s): G62.9 - Polyneuropathy, unspecified (4) Opiate dependence: Status: Acute Code(s): F11.20 - Opioid dependence, uncomplicated Plan Pt is a 33 yo male with hx of Schizophrenia, depression, opioid dependence, chronic left toe osteomylitis, chronic neuropathic b/l lower limb pain, b/l foot wounds who was recently discharged from on 04/12 after short stay, who sent to ED on for disorganized, psychotic behavior; in ED, reporting SI to jump off bridge. Pt has had a string of inpatient admissions over the summer ([place] in March, [facility] in January, [place] in January; also [facility] in Sep and October of this year). Patient is a limited historian, willingly participating in discussion but often to internally preoccupied and guarded to finish his sentences. Patient reports that he continues to take his Zyprexa and gabapentin on discharge last week. He talked about being involved in a [employer] organization...protecting the world... 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 And that he got overwhelmed by bad news relating to info from the [employer] organization that prompted him to feel suicidal. It is not clear if patient told his mother he was suicidal; he said that she thought he needed to go to the hospital because he was pacing nonstop outside and worried about the neighbor seeing him. Patient said that pacing helps him to be distracted from is worries and auditory hallucinations which he describes as people talking into my head.... Long conversations... A bunch of people... It is like doing a job. Patient said now on the unit he is feeling some relief. He says he still has SI at times but is very vague. Patient says that Zyprexa is the right medication for him and though he does not want it he will continue taking it; he is not open at all to any medication changes. Formulation/clinical reasoning: long hx of treatment resistant psychosis, chronic medication non-adherence and almost monthly hospitalizations. Addiction has had numerous medication trials that have only been minimally, partially helpful at best. Patient says that he took medication on discharge; it is not clear if this is accurate or why he decompensated. If he did continue taking medications, Perhaps on medications and on a psychiatric unit, which is a very structured environment, he can become okay enough, with SI resolving; but wants discharge back to the community, even on medications, the environment is simply too overwhelming and he quickly decompensates. Or perhaps he stops taking medication. -will try and obtain collateral Hospital course: 04/20 Patient?remains?with?same?presentation,?pacing?the?halls?incessantly. Difficult?with?which?to?engage?regarding?psychiatric?illness.??He?remains?internally?preoccupied, Not?finishing?sentences,?vague. He reports AH of voices telling him to kill himself and VH of invisible people, with invisible guns that they point at him so he has to keep walking to get away from them... -reviewed Hospitalist PA assessment -Interestingly,?if?conversation?is?switch?to?something?neutral,?his?interest?in?history?or?superficial?topics,? Patient is able to talk more clearly,?even?spontaneously,?asking?questions,?having?full?sentences 04/21 talking to himself incessantly while pacing halls; remains anxious and feeling persecuted by operators of [employer]; AH telling him to pay his bills for the project; patient also reports he is not getting paid for his work on the project; reports still seeing invisible people with invisible guns. Patient again refuses any medication change. But he says my affect is not so bad right? Patient says that while he agrees he could be at home on the same medication dose, he came to the hospital to be around people and to go to groups (though he does not go to groups or talk to anyone) because he is very isolated at home, does not have any friends, and is just alone all the time. He said that he just needs more time and that more time in the hospital he will start to feel better and ready to go home. Thinks that more time on Zyprexa will make a difference. Patient shared that the 1st time he got psychosis was about 5 years ago and for the 1st 3 years he never went to the hospital; he said over the past year he has started going to the hospital, thinks about once a month but is not sure; he says he is also now open to taking medication, specifically Zyprexa. -will not let staff nurses examine his foot; however has seem to allow specific wound nurse to assess Impression: Currently patient is resistant to any medication management that could possibly alleviate his symptoms. That said, script writer agrees that his current presentation is a significant improvement from 6 months ago when he was last on M5. At that time he refused medication and needed court order to take any. Although he still has little to no insight into having an actual psychiatric illness, this time he seems to accept and want relief from his symptoms via medication and hospital admission. Says he has continued to take Zyprexa 30 mg, even post discharge and says he will remain on it now; says all he needs is more time on this medication and in a supportive environment. While he may have some partial response to Zyprexa, it is script writer's very strong impression that there will unlikely be any further reduction of symptoms on this Zyprexa alone and that he very likely requires either an additional antipsychotic vs mood stabilizer or a switch to more potent antipsychotic. Steam Engineer acknowledges patient's overall improvement. Steam Engineer discussing with team and colleagues whether not to let patient continue and work out this illness on his own in the community, despite his being hospitalized 1/month for the past 1-2 years or to petition for state hospitalization... PLAN: CV q15min Restart Zyprexa/Zydis 30mg qhs Restart Gabapentin 600mg TID Hospitalist JERRELL assessment: #Stage 2 non-pressure ulcer L great toe with probable chronic osteomyelitis -Previously seen by ID in 08/2023 recommending amp for definitive cure which pt declined, IV abx with about 70% chance of NO cure which patient declined. Had initially agreed to prolonged PO abx with augmentin x2 weeks and bactrim po x 4 weeks then possibly bactrim MWF indefinitely. Pt did not follow up with treatment and is not interested in treatment. It is highly unlikely the osteomyelitis has been cured but does not appear to be causing any acute issues nor is there evidence of acute infection at time of exam Patient educated on: diagnosis, medication risk/benefits, therapeutic strategies and medical condition Informed Consent: understands Reason for continued inpatient stay Substantial Risk for: rapid decompensation and med/psych decompensation Time Spent With Patient Time: Total time managing care of this patient today ____ minutes.
[2024-04-21] MEDS: OLANZapine ODT 10 MG TAB.RAPDIS 30 MG TRANSLINGU (22:37)
[2024-04-22 08:00] VITALS: BP 96/60; PULSE 69; TEMP 36.7; O2SAT 96
[2024-04-22] MEDS: methADONE HCl 20 MG/2 ML ORAL.CONC 140 MG PO (08:05)
[2024-04-22] MEDS: Gabapentin 600 MG TABLET PO ×3 (08:22→22:41)
[2024-04-22] MEDS: Nicotine Polacrilex 2 MG GUM 4 MG BUCCAL ×3 (08:22→15:05)
[2024-04-22] MEDS: clonazePAM 0.5 MG TABLET PO ×5 (08:22→23:42)
--- NOTE | 2024-04-22 11:08 | P.PNPSI_ITS ---
Subjective Subjective Date of Service: 04/22/24 Reason For Visit: Unspec schizophrenia spectrum &other psychotic d/o Interim History: Met with patient; discussed with team no change in presentation and pacing all day; however pt said he's feeling a little better; can't really say why; no overt SI. He did sleep last night and allowed nursing to address foot wound. Mental Status Exam Mental Status Exam Narrative: Pt is alert and oriented; behavior is guarded, superficially cooperative, disorganized, pacing halls non-stop and talking to self; patient is not in distress; dressed in hospital attire, disheveled, poor hygiene; mood is described as a little better though affect blunted; eye contact limited; Speech is with thought blocking, slowed/soft, hard to get words out... not pressured; psychomotor agitation present; thought process goal directed, but concrete and distracted; Thought content is on paranoid ideations with grandiosity; passive, intermittent SI, no intentions/plans; no HI. Command AH. Patients insight and judgment impaired. Diagnostics Vital Signs (24Hr): Vital Signs - 24 hr 04/22/24 08:00 Temperature 98.0 F Pulse Rate 69 Blood Pressure 96/60 Pulse Oximetry 96 Oxygen Delivery Method Room Air Medications Medications Current Medications Acetaminophen (Acetaminophen 325 Mg Tablet) 650 mg PO Q6H PRN PRN Reason: Headache/Pain Mild Scale (1-3) Al Hydroxide/Mg Hydroxide (Magnesium Hydrox/Alum Hydrox 30 Ml Oral.Susp) 30 ml PO Q6H PRN PRN Reason: Heartburn/Nausea Clonazepam (Clonazepam 0.5 Mg Tablet) 0.5 mg PO BID [facility] Last Admin: 04/22/24 08:22 Dose: 0.5 mg Clonazepam (Clonazepam 0.5 Mg Tablet) 0.5 mg PO BID PRN PRN Reason: anxiety/restlessness Last Admin: 04/21/24 15:48 Dose: 0.5 mg Folic Acid (Folic Acid 1 Mg Tablet) 1 mg PO DAILY [facility] Last Admin: 04/22/24 08:24 Dose: Not Given Gabapentin (Gabapentin 600 Mg Tablet) 600 mg PO TID [facility] Last Admin: 04/22/24 08:22 Dose: 600 mg Hydroxyzine HCl (Hydroxyzine Hcl 25 Mg Tablet) 25 mg PO Q6H PRN PRN Reason: Anxiety Magnesium Hydroxide (Milk Of Magnesia 30 Ml Oral.Susp) 30 ml PO DAILY PRN PRN Reason: Constipation Methadone HCl (Methadone Hcl 20 Mg/2 Ml Oral.Conc) 140 mg PO DAILY [facility] Last Admin: 04/22/24 08:05 Dose: 140 mg Nicotine (Nicotine 21 Mg Patch.Td24) 21 mg TRANSDERMA DAILY PRN PRN Reason: smoking cessation Nicotine Polacrilex (Nicotine Polacrilex 2 Mg Gum) 4 mg BUCCAL Q2H PRN PRN Reason: Nicotine Cravings Last Admin: 04/22/24 08:22 Dose: 4 mg Olanzapine (Olanzapine 5 Mg Tablet) 5 mg PO TID PRN PRN Reason: agitation Olanzapine (Olanzapine Odt 10 Mg Tab.Rapdis) 30 mg TRANSLINGU BEDTIME [facility] Last Admin: 04/21/24 22:37 Dose: 30 mg Thiamine HCl (Thiamine Hcl 100 Mg Tablet) 100 mg PO DAILY [facility] Last Admin: 04/22/24 08:25 Dose: Not Given Trazodone HCl (Trazodone Hcl 50 Mg Tablet) 50 mg PO BEDTIME MRX1 PRN PRN Reason: Insomnia Allergies Allergies Allergy/AdvReac Type Severity Reaction Status Date / Time haloperidol [From Haldol] AdvReac Severe tongue Verified 07/13/23 14:18 swelling Assessment & Plan Assessment & Plan (1) Schizophrenia, paranoid, chronic with acute exacerbation: Status: Acute Code(s): F20.0 - Paranoid schizophrenia (2) Foot osteomyelitis, left: Status: Acute Code(s): M86.9 - Osteomyelitis, unspecified (3) Peripheral neuropathy: Status: Acute Code(s): G62.9 - Polyneuropathy, unspecified (4) Opiate dependence: Status: Acute Code(s): F11.20 - Opioid dependence, uncomplicated Plan Pt is a 33 yo male with hx of Schizophrenia, depression, opioid dependence, chronic left toe osteomylitis, chronic neuropathic b/l lower limb pain, b/l foot wounds who was recently discharged from on 04/12 after short stay, who sent to ED on for disorganized, psychotic behavior; in ED, reporting SI to jump off bridge. Pt has had a string of inpatient admissions over the summer ([place] in March, [facility] in January, [place] in January; also [facility] in Sep and October of this year). Patient is a limited historian, willingly participating in discussion but often to internally preoccupied and guarded to finish his sentences. Patient reports that he continues to take his Zyprexa and gabapentin on discharge last week. He talked about being involved in a secret [employer] organization...protecting the world... 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 And that he got overwhelmed by bad news relating to info from the secret organization that prompted him to feel suicidal. It is not clear if patient told his mother he was suicidal; he said that she thought he needed to go to the hospital because he was pacing nonstop outside and worried about the neighbor seeing him. Patient said that pacing helps him to be distracted from is worries and auditory hallucinations which he describes as people talking into my head.... Long conversations... A bunch of people... It is like doing a job. Patient said now on the unit he is feeling some relief. He says he still has SI at times but is very vague. Patient says that Zyprexa is the right medication for him and though he does not want it he will continue taking it; he is not open at all to any medication changes. Formulation/clinical reasoning: long hx of treatment resistant psychosis, chronic medication non-adherence and almost monthly hospitalizations. Addiction has had numerous medication trials that have only been minimally, partially helpful at best. Patient says that he took medication on discharge; it is not clear if this is accurate or why he decompensated. If he did continue taking medications, Perhaps on medications and on a psychiatric unit, which is a very structured environment, he can become okay enough, with SI resolving; but wants discharge back to the community, even on medications, the environment is simply too overwhelming and he quickly decompensates. Or perhaps he stops taking medication. -will try and obtain collateral Hospital course: 04/20 Patient?remains?with?same?presentation,?pacing?the?halls?incessantly. Difficult?with?which?to?engage?regarding?psychiatric?illness.? ?He?remains?internally?preoccupied, Not?finishing?sentences,?vague. He reports AH of voices telling him to kill himself and VH of invisible people, with invisible guns that they point at him so he has to keep walking to get away from them... -reviewed Hospitalist PA assessment - Interestingly,?if?conversation?is?switch?to?something?neutral,?his?interest?in?h istory?or?superficial?topics,? Patient is able to talk more clearly,?even?spontaneously,?asking?questions,?having?full?sentences 04/21 talking to himself incessantly while pacing halls; remains anxious and feeling persecuted by operators of [employer]; AH telling him to pay his bills for the project; patient also reports he is not getting paid for his work on the project; reports still seeing invisible people with invisible guns. P atient again refuses any medication change. But he says my affect is not so bad right? Patient says that while he agrees he could be at home on the same medication dose, he came to the hospital to be around people and to go to groups (though he does not go to groups or talk to anyone) because he is very isolated at home, does not have any friends, and is just alone all the time. He said that he just needs more time and that more time in the hospital he will start to feel better and ready to go home. Thinks that more time on Zyprexa will make a difference. Patient shared that the 1st time he got psychosis was about 5 years ago and for the 1st 3 years he never went to the hospital; he said over the past year he has started going to the hospital, thinks about once a month but is not sure; he says he is also now open to taking medication, specifically Zyprexa. -will not let staff nurses examine his foot; however has seem to allow specific wound nurse to assess Impression: Currently patient is resistant to any medication management that could possibly alleviate his symptoms. That said, singer songwriter agrees that his current presentation is a significant improvement from 6 months ago when he was last on M5. At that time he refused medication and needed court order to take any. Although he still has little to no insight into having an actual psychiatric illness, this time he seems to accept and want relief from his symptoms via medication and hospital admission. Says he has continued to take Zyprexa 30 mg, even post discharge and says he will remain on it now; says all he needs is more time on this medication and in a supportive environment. While he may have some partial response to Zyprexa, it is singer songwriter's very strong impression that there will unlikely be any further reduction of symptoms on this Zyprexa alone and that he very likely requires either an additional antipsychotic vs mood stabilizer or a switch to more potent antipsychotic. Warehouse Team Member acknowledges patient's overall improvement. Warehouse Team Member discussing with team and colleagues whether not to let patient continue and work out this illness on his own in the community, despite his being hospitalized 1/month for the past 1-2 years or to petition for state hospitalization... 04/22 says a little better and allowed nursing to address foot wounds. PLAN: CV q15min Restart Zyprexa/Zydis 30mg qhs Restart Gabapentin 600mg TID Hospitalist PA assessment: #Stage 2 non-pressure ulcer L great toe with probable chronic osteomyelitis -Previously seen by ID in 08/2023 recommending amp for definitive cure which pt declined, IV abx with about 70% chance of NO cure which patient declined. Had initially agreed to prolonged PO abx with augmentin x2 weeks and bactrim po x 4 weeks then possibly bactrim MWF indefinitely. Pt did not follow up with treatment and is not interested in treatment. It is highly unlikely the osteomyelitis has been cured but does not appear to be causing any acute issues nor is there evidence of acute infection at time of exam Patient educated on: diagnosis and medication risk/benefits Informed Consent: understands, does not understand and further education needed Reason for continued inpatient stay Substantial Risk for: rapid decompensation Time Spent With Patient Time: Total time managing care of this patient today ____ minutes.
[2024-04-22] MEDS: OLANZapine ODT 10 MG TAB.RAPDIS 30 MG TRANSLINGU (23:41)
[2024-04-23 08:00] VITALS: RESP 18
[2024-04-23] MEDS: methADONE HCl 20 MG/2 ML ORAL.CONC 140 MG PO (08:17)
[2024-04-23] MEDS: Nicotine Polacrilex 2 MG GUM 4 MG BUCCAL ×3 (08:19→20:27)
[2024-04-23] MEDS: Gabapentin 600 MG TABLET PO ×3 (08:19→20:43)
[2024-04-23] MEDS: clonazePAM 0.5 MG TABLET PO ×4 (08:19→23:38)
--- NOTE | 2024-04-23 10:23 | HO.PSYCHPN ---
Subjective Subjective Date of Service: 04/23/24 Reason For Visit: Unspec schizophrenia spectrum &other psychotic d/o Interim History: Met with patient; discussed with team Patient slept very little last night, pacing much of the night. Today's very tired. He says it is because he took his Zyprexa to late. Patient looks more disheveled than usual, food on his face and clothes, urine staying on his pants. However he says that emotionally he is feeling better and denies any SI. Otherwise very difficult with which to engage. That said, allowing foot wounds to be attended to by nursing Mental Status Exam Mental Status Exam Narrative: Pt is alert and oriented; behavior is guarded, superficially cooperative, disorganized, pacing halls non-stop and talking to self; patient is not in distress; dressed in hospital attire, disheveled, poor hygiene; mood is described as a little better though affect blunted; eye contact limited; Speech is with thought blocking, slowed/soft, hard to get words out... not pressured; psychomotor agitation present; thought process goal directed, but concrete and distracted; Thought content is on paranoid ideations with grandiosity; denies SI;no HI. Command AH. Patients insight and judgment impaired. Diagnostics Vital Signs (24Hr): Vital Signs - 24 hr 04/23/24 08:00 Respiratory Rate 18 Oxygen Delivery Method Room Air Medications Medications Current Medications Acetaminophen (Acetaminophen 325 Mg Tablet) 650 mg PO Q6H PRN PRN Reason: Headache/Pain Mild Scale (1-3) Al Hydroxide/Mg Hydroxide (Magnesium Hydrox/Alum Hydrox 30 Ml Oral.Susp) 30 ml PO Q6H PRN PRN Reason: Heartburn/Nausea Clonazepam (Clonazepam 0.5 Mg Tablet) 0.5 mg PO BID [facility] Last Admin: 04/23/24 08:19 Dose: 0.5 mg Clonazepam (Clonazepam 0.5 Mg Tablet) 0.5 mg PO BID PRN PRN Reason: anxiety/restlessness Last Admin: 04/22/24 23:42 Dose: 0.5 mg Folic Acid (Folic Acid 1 Mg Tablet) 1 mg PO DAILY [facility] Last Admin: 04/23/24 08:31 Dose: Not Given Gabapentin (Gabapentin 600 Mg Tablet) 600 mg PO TID [facility] Last Admin: 04/23/24 08:19 Dose: 600 mg Hydroxyzine HCl (Hydroxyzine Hcl 25 Mg Tablet) 25 mg PO Q6H PRN PRN Reason: Anxiety Magnesium Hydroxide (Milk Of Magnesia 30 Ml Oral.Susp) 30 ml PO DAILY PRN PRN Reason: Constipation Methadone HCl (Methadone Hcl 20 Mg/2 Ml Oral.Conc) 140 mg PO DAILY [facility] Last Admin: 04/23/24 08:17 Dose: 140 mg Nicotine (Nicotine 21 Mg Patch.Td24) 21 mg TRANSDERMA DAILY PRN PRN Reason: smoking cessation Nicotine Polacrilex (Nicotine Polacrilex 2 Mg Gum) 4 mg BUCCAL Q2H PRN PRN Reason: Nicotine Cravings Last Admin: 04/23/24 08:19 Dose: 4 mg Olanzapine (Olanzapine 5 Mg Tablet) 5 mg PO TID PRN PRN Reason: agitation Olanzapine (Olanzapine Odt 10 Mg Tab.Rapdis) 30 mg TRANSLINGU BEDTIME [facility] Last Admin: 04/22/24 23:41 Dose: 30 mg Thiamine HCl (Thiamine Hcl 100 Mg Tablet) 100 mg PO DAILY [facility] Last Admin: 04/23/24 08:31 Dose: Not Given Trazodone HCl (Trazodone Hcl 50 Mg Tablet) 50 mg PO BEDTIME MRX1 PRN PRN Reason: Insomnia Allergies Allergies Allergy/AdvReac Type Severity Reaction Status Date / Time haloperidol [From Haldol] AdvReac Severe tongue Verified 07/13/23 14:18 swelling Assessment & Plan Assessment & Plan (1) Schizophrenia, paranoid, chronic with acute exacerbation: Status: Acute Code(s): F20.0 - Paranoid schizophrenia (2) Foot osteomyelitis, left: Status: Acute Code(s): M86.9 - Osteomyelitis, unspecified (3) Peripheral neuropathy: Status: Acute Code(s): G62.9 - Polyneuropathy, unspecified (4) Opiate dependence: Status: Acute Code(s): F11.20 - Opioid dependence, uncomplicated Plan Pt is a 33 yo male with hx of Schizophrenia, depression, opioid dependence, chronic left toe osteomylitis, chronic neuropathic b/l lower limb pain, b/l foot wounds who was recently discharged from on 04/12 after short stay, who sent to ED on 12B for disorganized, psychotic behavior; in ED, reporting SI to jump off bridge. Pt has had a string of inpatient admissions over the summer ([place] in March, [facility] in January, [facility] in January; also [facility] in Sep and October of this year). Patient is a limited historian, willingly participating in discussion but often to internally preoccupied and guarded to finish his sentences. Patient reports that he continues to take his Zyprexa and gabapentin on discharge last week. He talked about being involved in a [employer] organization...protecting the world... 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 And that he got overwhelmed by bad news relating to info from the [employer] organization that prompted him to feel suicidal. It is not clear if patient told his mother he was suicidal; he said that she thought he needed to go to the hospital because he was pacing nonstop outside and worried about the neighbor seeing him. Patient said that pacing helps him to be distracted from is worries and auditory hallucinations which he describes as people talking into my head.... Long conversations... A bunch of people... It is like doing a job. Patient said now on the unit he is feeling some relief. He says he still has SI at times but is very vague. Patient says that Zyprexa is the right medication for him and though he does not want it he will continue taking it; he is not open at all to any medication changes. Formulation/clinical reasoning: long hx of treatment resistant psychosis, chronic medication non-adherence and almost monthly hospitalizations. Addiction has had numerous medication trials that have only been minimally, partially helpful at best. Patient says that he took medication on discharge; it is not clear if this is accurate or why he decompensated. If he did continue taking medications, Perhaps on medications and on a psychiatric unit, which is a very structured environment, he can become okay enough, with SI resolving; but wants discharge back to the community, even on medications, the environment is simply too overwhelming and he quickly decompensates. Or perhaps he stops taking medication. -will try and obtain collateral Hospital course: 04/20 Patient?remains?with?same?presentation,?pacing?the?halls?incessantly. Difficult?with?which?to?engage?regarding?psychiatric?illness.??He?remains?internally?preoccupied, Not?finishing?sentences,?vague. He reports AH of voices telling him to kill himself and VH of invisible people, with invisible guns that they point at him so he has to keep walking to get away from them... -reviewed Hospitalist PA assessment -Interestingly,?if?conversation?is?switch?to?something?neutral,?his?interest?in?history?or?superficial?topics,? Patient is able to talk more clearly,?even?spontaneously,?asking?questions,?having?full?sentences 04/21 talking to himself incessantly while pacing halls; remains anxious and feeling persecuted by operators of [employer]; AH telling him to pay his bills for the project; patient also reports he is not getting paid for his work on the project; reports still seeing invisible people with invisible guns. Patient again refuses any medication change. But he says my affect is not so bad right? Patient says that while he agrees he could be at home on the same medication dose, he came to the hospital to be around people and to go to groups (though he does not go to groups or talk to anyone) because he is very isolated at home, does not have any friends, and is just alone all the time. He said that he just needs more time and that more time in the hospital he will start to feel better and ready to go home. Thinks that more time on Zyprexa will make a difference. Patient shared that the 1st time he got psychosis was about 5 years ago and for the 1st 3 years he never went to the hospital; he said over the past year he has started going to the hospital, thinks about once a month but is not sure; he says he is also now open to taking medication, specifically Zyprexa. -will not let staff nurses examine his foot; however has seem to allow specific wound nurse to assess Impression: Currently patient is resistant to any medication management that could possibly alleviate his symptoms. That said, racebook writer agrees that his current presentation is a significant improvement from 6 months ago when he was last on M5. At that time he refused medication and needed court order to take any. Although he still has little to no insight into having an actual psychiatric illness, this time he seems to accept and want relief from his symptoms via medication and hospital admission. Says he has continued to take Zyprexa 30 mg, even post discharge and says he will remain on it now; says all he needs is more time on this medication and in a supportive environment. While he may have some partial response to Zyprexa, it is racebook writer's very strong impression that there will unlikely be any further reduction of symptoms on this Zyprexa alone and that he very likely requires either an additional antipsychotic vs mood stabilizer or a switch to more potent antipsychotic. Nurse Receptionist acknowledges patient's overall improvement. Nurse Receptionist discussing with team and colleagues whether not to let patient continue and work out this illness on his own in the community, despite his being hospitalized 1/month for the past 1-2 years or to petition for state hospitalization... There is room for allowing either option. On the 1 hand patient will very likely not see any improvement or have much quality of life without long-term, consistent treatment and rigorous medication management; on the other hand, patient has not actually tried to hurt himself and is coming to the hospital and is taking medication which is a significant improvement. 04/22 says a little better and allowed nursing to address foot wounds. 04/23 did not sleep much last night, pacing; continues to be adherent with medications and says that he is feeling a little better and denies any SI. PLAN: CV q15min Restart Zyprexa/Zydis 30mg qhs Restart Gabapentin 600mg TID Hospitalist JERRELL assessment: #Stage 2 non-pressure ulcer L great toe with probable chronic osteomyelitis -Previously seen by ID in 08/2023 recommending amp for definitive cure which pt declined, IV abx with about 70% chance of NO cure which patient declined. Had initially agreed to prolonged PO abx with augmentin x2 weeks and bactrim po x 4 weeks then possibly bactrim MWF indefinitely. Pt did not follow up with treatment and is not interested in treatment. It is highly unlikely the osteomyelitis has been cured but does not appear to be causing any acute issues nor is there evidence of acute infection at time of exam Patient educated on: diagnosis and medication risk/benefits Informed Consent: understands, does not understand and further education needed Reason for continued inpatient stay Substantial Risk for: rapid decompensation and med/psych decompensation Time Spent With Patient Time: Total time managing care of this patient today ____ minutes.
[2024-04-23] MEDS: OLANZapine ODT 10 MG TAB.RAPDIS 30 MG TRANSLINGU (20:43)
[2024-04-24] MEDS: methADONE HCl 20 MG/2 ML ORAL.CONC 140 MG PO (07:55)
--- NOTE | 2024-04-24 08:29 | HO.PSYCHPN ---
Subjective Subjective Date of Service: 04/24/24 Reason For Visit: Unspec schizophrenia spectrum &other psychotic d/o Interim History: Met with patient; discussed with team Patient no change in presentation. He says that he is pretty good and ?getting better. ? Reports auditory hallucinations remain and he says ?can you see me talking to them? But also says that overall they are less and more tolerable. He continues to not want any medication changes. Mental Status Exam Mental Status Exam Narrative: Pt is alert and oriented; behavior is guarded, superficially cooperative, disorganized, pacing halls non-stop, shaking arm in air and talking to self; patient is not in distress; dressed in hospital attire, disheveled, poor hygiene; mood is described as a little better though affect blunted; eye contact limited; Speech is with thought blocking, slowed/soft, hard to get words out... not pressured; psychomotor agitation present; thought process goal directed, but concrete and distracted; Thought content is on paranoid ideations with grandiosity; denies SI;no HI. Command AH. Patients insight and judgment impaired. Medications Medications Current Medications Acetaminophen (Acetaminophen 325 Mg Tablet) 650 mg PO Q6H PRN PRN Reason: Headache/Pain Mild Scale (1-3) Al Hydroxide/Mg Hydroxide (Magnesium Hydrox/Alum Hydrox 30 Ml Oral.Susp) 30 ml PO Q6H PRN PRN Reason: Heartburn/Nausea Clonazepam (Clonazepam 0.5 Mg Tablet) 0.5 mg PO BID [facility] Last Admin: 04/23/24 20:43 Dose: 0.5 mg Clonazepam (Clonazepam 0.5 Mg Tablet) 0.5 mg PO BID PRN PRN Reason: anxiety/restlessness Last Admin: 04/23/24 23:38 Dose: 0.5 mg Folic Acid (Folic Acid 1 Mg Tablet) 1 mg PO DAILY [facility] Last Admin: 04/23/24 08:31 Dose: Not Given Gabapentin (Gabapentin 600 Mg Tablet) 600 mg PO TID [facility] Last Admin: 04/23/24 20:43 Dose: 600 mg Hydroxyzine HCl (Hydroxyzine Hcl 25 Mg Tablet) 25 mg PO Q6H PRN PRN Reason: Anxiety Magnesium Hydroxide (Milk Of Magnesia 30 Ml Oral.Susp) 30 ml PO DAILY PRN PRN Reason: Constipation Methadone HCl (Methadone Hcl 20 Mg/2 Ml Oral.Conc) 140 mg PO DAILY [facility] Last Admin: 04/24/24 07:55 Dose: 140 mg Nicotine (Nicotine 21 Mg Patch.Td24) 21 mg TRANSDERMA DAILY PRN PRN Reason: smoking cessation Nicotine Polacrilex (Nicotine Polacrilex 2 Mg Gum) 4 mg BUCCAL Q2H PRN PRN Reason: Nicotine Cravings Last Admin: 04/23/24 20:27 Dose: 4 mg Olanzapine (Olanzapine 5 Mg Tablet) 5 mg PO TID PRN PRN Reason: agitation Olanzapine (Olanzapine Odt 10 Mg Tab.Rapdis) 30 mg TRANSLINGU BEDTIME [facility] Last Admin: 04/23/24 20:43 Dose: 30 mg Thiamine HCl (Thiamine Hcl 100 Mg Tablet) 100 mg PO DAILY [facility] Last Admin: 04/23/24 08:31 Dose: Not Given Trazodone HCl (Trazodone Hcl 50 Mg Tablet) 50 mg PO BEDTIME MRX1 PRN PRN Reason: Insomnia Allergies Allergies Allergy/AdvReac Type Severity Reaction Status Date / Time haloperidol [From Haldol] AdvReac Severe tongue Verified 07/13/23 14:18 swelling Assessment & Plan Assessment & Plan (1) Schizophrenia, paranoid, chronic with acute exacerbation: Status: Acute Code(s): F20.0 - Paranoid schizophrenia (2) Foot osteomyelitis, left: Status: Acute Code(s): M86.9 - Osteomyelitis, unspecified (3) Peripheral neuropathy: Status: Acute Code(s): G62.9 - Polyneuropathy, unspecified (4) Opiate dependence: Status: Acute Code(s): F11.20 - Opioid dependence, uncomplicated Plan Pt is a 33 yo male with hx of Schizophrenia, depression, opioid dependence, chronic left toe osteomylitis, chronic neuropathic b/l lower limb pain, b/l foot wounds who was recently discharged from on 04/12 after short stay, who sent to ED on 12 for disorganized, psychotic behavior; in ED, reporting SI to jump off bridge. Pt has had a string of inpatient admissions over the summer ([place] in March, [facility] in January, [place] in January; also [facility] in Sep and October of this year). Patient is a limited historian, willingly participating in discussion but often to internally preoccupied and guarded to finish his sentences. Patient reports that he continues to take his Zyprexa and gabapentin on discharge last week. He talked about being involved in a secret [employer] organization...protecting the world... 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 And that he got overwhelmed by bad news relating to info from the secret organization that prompted him to feel suicidal. It is not clear if patient told his mother he was suicidal; he said that she thought he needed to go to the hospital because he was pacing nonstop outside and worried about the neighbor seeing him. Patient said that pacing helps him to be distracted from is worries and auditory hallucinations which he describes as people talking into my head.... Long conversations... A bunch of people... It is like doing a job. Patient said now on the unit he is feeling some relief. He says he still has SI at times but is very vague. Patient says that Zyprexa is the right medication for him and though he does not want it he will continue taking it; he is not open at all to any medication changes. Formulation/clinical reasoning: long hx of treatment resistant psychosis, chronic medication non-adherence and almost monthly hospitalizations. Addiction has had numerous medication trials that have only been minimally, partially helpful at best. Patient says that he took medication on discharge; it is not clear if this is accurate or why he decompensated. If he did continue taking medications, Perhaps on medications and on a psychiatric unit, which is a very structured environment, he can become okay enough, with SI resolving; but wants discharge back to the community, even on medications, the environment is simply too overwhelming and he quickly decompensates. Or perhaps he stops taking medication. -will try and obtain collateral Hospital course: 04/20 Patient?remains?with?same?presentation,?pacing?the?halls?incessantly. Difficult?with?which?to?engage?regarding?psychiatric?illness.??He?remains?internally?preoccupied, Not?finishing?sentences,?vague. He reports AH of voices telling him to kill himself and VH of invisible people, with invisible guns that they point at him so he has to keep walking to get away from them... -reviewed Hospitalist PA assessment -Interestingly,?if?conversation?is?switch?to?something?neutral,?his?interest?in?history?or?superficial?topics,? Patient is able to talk more clearly,?even?spontaneously,?asking?questions,?having?full?sentences 04/21 talking to himself incessantly while pacing halls; remains anxious and feeling persecuted by operators of [employer]; AH telling him to pay his bills for the project; patient also reports he is not getting paid for his work on the project; reports still seeing invisible people with invisible guns. Patient again refuses any medication change. But he says my affect is not so bad right? Patient says that while he agrees he could be at home on the same medication dose, he came to the hospital to be around people and to go to groups (though he does not go to groups or talk to anyone) because he is very isolated at home, does not have any friends, and is just alone all the time. He said that he just needs more time and that more time in the hospital he will start to feel better and ready to go home. Thinks that more time on Zyprexa will make a difference. Patient shared that the 1st time he got psychosis was about 5 years ago and for the 1st 3 years he never went to the hospital; he said over the past year he has started going to the hospital, thinks about once a month but is not sure; he says he is also now open to taking medication, specifically Zyprexa. -will not let staff nurses examine his foot; however has seem to allow specific wound nurse to assess Impression: Currently patient is resistant to any medication management that could possibly alleviate his symptoms. That said, gag writer agrees that his current presentation is a significant improvement from 6 months ago when he was last on M5. At that time he refused medication and needed court order to take any. Although he still has little to no insight into having an actual psychiatric illness, this time he seems to accept and want relief from his symptoms via medication and hospital admission. Says he has continued to take Zyprexa 30 mg, even post discharge and says he will remain on it now; says all he needs is more time on this medication and in a supportive environment. While he may have some partial response to Zyprexa, it is gag writer's very strong impression that there will unlikely be any further reduction of symptoms on this Zyprexa alone and that he very likely requires either an additional antipsychotic vs mood stabilizer or a switch to more potent antipsychotic. Electrostatic Powder Coating Technician acknowledges patient's overall improvement. Electrostatic Powder Coating Technician discussing with team and colleagues whether not to let patient continue and work out this illness on his own in the community, despite his being hospitalized 1/month for the past 1-2 years or to petition for state hospitalization... There is room for allowing either option. On the 1 hand patient will very likely not see any improvement or have much quality of life without long-term, consistent treatment and rigorous medication management; on the other hand, patient has not actually tried to hurt himself and is coming to the hospital and is taking medication which is a significant improvement. 04/22 says a little better and allowed nursing to address foot wounds. 04/23 did not sleep much last night, pacing; continues to be adherent with medications and says that he is feeling a little better and denies any SI. 04/24 Patient no change in presentation. He says that he is pretty good and ?getting better. ? Reports auditory hallucinations remain and he says ?can you see me talking to them? But also says that overall they are less and more tolerable. He continues to not want any medication changes. PLAN: CV q15min Restart Zyprexa/Zydis 30mg qhs Restart Gabapentin 600mg TID Hospitalist JERRELL assessment: #Stage 2 non-pressure ulcer L great toe with probable chronic osteomyelitis -Previously seen by ID in 08/2023 recommending amp for definitive cure which pt declined, IV abx with about 70% chance of NO cure which patient declined. Had initially agreed to prolonged PO abx with augmentin x2 weeks and bactrim po x 4 weeks then possibly bactrim MWF indefinitely. Pt did not follow up with treatment and is not interested in treatment. It is highly unlikely the osteomyelitis has been cured but does not appear to be causing any acute issues nor is there evidence of acute infection at time of exam Patient educated on: diagnosis and medication risk/benefits Informed Consent: understands, does not understand and further education needed Reason for continued inpatient stay Substantial Risk for: stable for discharge, rapid decompensation and med/psych decompensation Time Spent With Patient Time: Total time managing care of this patient today ____ minutes.
[2024-04-24 09:00] VITALS: RESP 18
[2024-04-24] MEDS: Gabapentin 600 MG TABLET PO ×3 (09:29→20:14)
[2024-04-24] MEDS: clonazePAM 0.5 MG TABLET PO ×3 (09:29→20:14)
[2024-04-24] MEDS: Nicotine Polacrilex 2 MG GUM 4 MG BUCCAL ×3 (14:05→23:42)
[2024-04-24] MEDS: Acetaminophen 325 MG TABLET 650 MG PO (14:45)
[2024-04-24 19:42] VITALS: RESP 16
[2024-04-24] MEDS: OLANZapine ODT 10 MG TAB.RAPDIS 30 MG TRANSLINGU (23:42)
[2024-04-25] MEDS: methADONE HCl 20 MG/2 ML ORAL.CONC 140 MG PO (07:43)
[2024-04-25] MEDS: Nicotine Polacrilex 2 MG GUM 4 MG BUCCAL ×3 (07:45→15:35)
[2024-04-25 08:00] VITALS: RESP 18
[2024-04-25] MEDS: Gabapentin 600 MG TABLET PO ×3 (09:06→20:19)
[2024-04-25] MEDS: clonazePAM 0.5 MG TABLET PO ×4 (09:06→20:19)
--- NOTE | 2024-04-25 12:06 | HO.PSYCHPN ---
Subjective Subjective Date of Service: 04/25/24 Reason For Visit: Unspec schizophrenia spectrum &other psychotic d/o Interim History: met with patient; discussed with team Little change in presentation, with patient pacing the halls, talking himself, however he reports that he is feeling better, that his mood is better. He remains unwilling to consider making any medication changes at all, saying that Zyprexa is working for him. Patient says he thinks he will be ready for discharge soon Mental Status Exam Mental Status Exam Narrative: Pt is alert and oriented; behavior is guarded, superficially cooperative, disorganized, pacing halls non-stop, shaking arm in air and talking to self; patient is not in distress; dressed in casual attire, disheveled, poor hygiene; mood is described as a little better though affect blunted; eye contact limited; Speech is spontaneous and no longer with thought blocking; normal rate, volume and prosody; psychomotor agitation present; thought process goal directed and logical, but concrete; Thought content is on paranoid ideations with grandiosity; denies SI;no HI. Command AH. Patients insight and judgment impaired however he is taking medications and says he will continue to do so.. Diagnostics Vital Signs (24Hr): Vital Signs - 24 hr 04/24/24 19:42 Respiratory Rate 16 Medications Medications Current Medications Acetaminophen (Acetaminophen 325 Mg Tablet) 650 mg PO Q6H PRN PRN Reason: Headache/Pain Mild Scale (1-3) Last Admin: 04/24/24 14:45 Dose: 650 mg Al Hydroxide/Mg Hydroxide (Magnesium Hydrox/Alum Hydrox 30 Ml Oral.Susp) 30 ml PO Q6H PRN PRN Reason: Heartburn/Nausea Clonazepam (Clonazepam 0.5 Mg Tablet) 0.5 mg PO BID [facility] Last Admin: 04/25/24 09:06 Dose: 0.5 mg Clonazepam (Clonazepam 0.5 Mg Tablet) 0.5 mg PO BID PRN PRN Reason: anxiety/restlessness Last Admin: 04/25/24 11:24 Dose: 0.5 mg Folic Acid (Folic Acid 1 Mg Tablet) 1 mg PO DAILY [facility] Last Admin: 04/25/24 09:08 Dose: Not Given Gabapentin (Gabapentin 600 Mg Tablet) 600 mg PO TID [facility] Last Admin: 04/25/24 09:06 Dose: 600 mg Hydroxyzine HCl (Hydroxyzine Hcl 25 Mg Tablet) 25 mg PO Q6H PRN PRN Reason: Anxiety Magnesium Hydroxide (Milk Of Magnesia 30 Ml Oral.Susp) 30 ml PO DAILY PRN PRN Reason: Constipation Methadone HCl (Methadone Hcl 20 Mg/2 Ml Oral.Conc) 140 mg PO DAILY [facility] Last Admin: 04/25/24 07:43 Dose: 140 mg Nicotine (Nicotine 21 Mg Patch.Td24) 21 mg TRANSDERMA DAILY PRN PRN Reason: smoking cessation Nicotine Polacrilex (Nicotine Polacrilex 2 Mg Gum) 4 mg BUCCAL Q2H PRN PRN Reason: Nicotine Cravings Last Admin: 04/25/24 11:24 Dose: 4 mg Olanzapine (Olanzapine 5 Mg Tablet) 5 mg PO TID PRN PRN Reason: agitation Olanzapine (Olanzapine Odt 10 Mg Tab.Rapdis) 30 mg TRANSLINGU BEDTIME [facility] Last Admin: 04/24/24 23:42 Dose: 30 mg Thiamine HCl (Thiamine Hcl 100 Mg Tablet) 100 mg PO DAILY [facility] Last Admin: 04/25/24 09:08 Dose: Not Given Trazodone HCl (Trazodone Hcl 50 Mg Tablet) 50 mg PO BEDTIME MRX1 PRN PRN Reason: Insomnia Allergies Allergies Allergy/AdvReac Type Severity Reaction Status Date / Time haloperidol [From Haldol] AdvReac Severe tongue Verified 07/13/23 14:18 swelling Assessment & Plan Assessment & Plan (1) Schizophrenia, paranoid, chronic with acute exacerbation: Status: Acute Code(s): F20.0 - Paranoid schizophrenia (2) Foot osteomyelitis, left: Status: Acute Code(s): M86.9 - Osteomyelitis, unspecified (3) Peripheral neuropathy: Status: Acute Code(s): G62.9 - Polyneuropathy, unspecified (4) Opiate dependence: Status: Acute Code(s): F11.20 - Opioid dependence, uncomplicated Plan Pt is a 33 yo male with hx of Schizophrenia, depression, opioid dependence, chronic left toe osteomylitis, chronic neuropathic b/l lower limb pain, b/l foot wounds who was recently discharged from on 04/12 after short stay, who sent to ED on 12B for disorganized, psychotic behavior; in ED, reporting SI to jump off bridge. Pt has had a string of inpatient admissions over the summer ([place] in March, [facility] in January, [place] in January; also [facility] in Sep and October of this year). Patient is a limited historian, willingly participating in discussion but often to internally preoccupied and guarded to finish his sentences. Patient reports that he continues to take his Zyprexa and gabapentin on discharge last week. He talked about being involved in a [employer] organization...protecting the world... 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 And that he got overwhelmed by bad news relating to info from the [employer] organization that prompted him to feel suicidal. It is not clear if patient told his mother he was suicidal; he said that she thought he needed to go to the hospital because he was pacing nonstop outside and worried about the neighbor seeing him. Patient said that pacing helps him to be distracted from is worries and auditory hallucinations which he describes as people talking into my head.... Long conversations... A bunch of people... It is like doing a job. Patient said now on the unit he is feeling some relief. He says he still has SI at times but is very vague. Patient says that Zyprexa is the right medication for him and though he does not want it he will continue taking it; he is not open at all to any medication changes. Formulation/clinical reasoning: long hx of treatment resistant psychosis, chronic medication non-adherence and almost monthly hospitalizations. Addiction has had numerous medication trials that have only been minimally, partially helpful at best. Patient says that he took medication on discharge; it is not clear if this is accurate or why he decompensated. If he did continue taking medications, Perhaps on medications and on a psychiatric unit, which is a very structured environment, he can become okay enough, with SI resolving; but wants discharge back to the community, even on medications, the environment is simply too overwhelming and he quickly decompensates. Or perhaps he stops taking medication. -will try and obtain collateral Hospital course: 04/20 Patient?remains?with?same?presentation,?pacing?the?halls?incessantly. Difficult?with?which?to?engage?regarding?psychiatric?illness.??He?remains?internally?preoccupied, Not?finishing?sentences,?vague. He reports AH of voices telling him to kill himself and VH of invisible people, with invisible guns that they point at him so he has to keep walking to get away from them... -reviewed Hospitalist PA assessment -Interestingly,?if?conversation?is?switch?to?something?neutral,?his?interest?in?history?or?superficial?topics,? Patient is able to talk more clearly,?even?spontaneously,?asking?questions,?having?full?sentences 04/21 talking to himself incessantly while pacing halls; remains anxious and feeling persecuted by operators of [employer]; AH telling him to pay his bills for the project; patient also reports he is not getting paid for his work on the project; reports still seeing invisible people with invisible guns. Patient again refuses any medication change. But he says my affect is not so bad right? Patient says that while he agrees he could be at home on the same medication dose, he came to the hospital to be around people and to go to groups (though he does not go to groups or talk to anyone) because he is very isolated at home, does not have any friends, and is just alone all the time. He said that he just needs more time and that more time in the hospital he will start to feel better and ready to go home. Thinks that more time on Zyprexa will make a difference. Patient shared that the 1st time he got psychosis was about 5 years ago and for the 1st 3 years he never went to the hospital; he said over the past year he has started going to the hospital, thinks about once a month but is not sure; he says he is also now open to taking medication, specifically Zyprexa. -will not let staff nurses examine his foot; however has seem to allow specific wound nurse to assess Impression: Currently patient is resistant to any medication management that could possibly alleviate his symptoms. That said, script writer agrees that his current presentation is a significant improvement from 6 months ago when he was last on M5. At that time he refused medication and needed court order to take any. Although he still has little to no insight into having an actual psychiatric illness, this time he seems to accept and want relief from his symptoms via medication and hospital admission. Says he has continued to take Zyprexa 30 mg, even post discharge and says he will remain on it now; says all he needs is more time on this medication and in a supportive environment. While he may have some partial response to Zyprexa, it is script writer's very strong impression that there will unlikely be any further reduction of symptoms on this Zyprexa alone and that he very likely requires either an additional antipsychotic vs mood stabilizer or a switch to more potent antipsychotic. Auto Tech acknowledges patient's overall improvement. Auto Tech discussing with team and colleagues whether not to let patient continue and work out this illness on his own in the community, despite his being hospitalized 1/month for the past 1-2 years or to petition for state hospitalization... There is room for allowing either option. On the 1 hand patient will very likely not see any improvement or have much quality of life without long-term, consistent treatment and rigorous medication management; on the other hand, patient has not actually tried to hurt himself and is coming to the hospital and is taking medication which is a significant improvement. 04/22 says a little better and allowed nursing to address foot wounds. 04/23 did not sleep much last night, pacing; continues to be adherent with medications and says that he is feeling a little better and denies any SI. 04/24 Patient no change in presentation. He says that he is pretty good and ?getting better. ? Reports auditory hallucinations remain and he says ?can you see me talking to them? But also says that overall they are less and more tolerable. He continues to not want any medication changes. 04/25Little change in presentation, with patient pacing the halls, talking himself, however he reports that he is feeling better, that his mood is better. He remains unwilling to consider making any medication changes at all, saying that Zyprexa is working for him. Patient says he thinks he will be ready for discharge soon. He denies any SI. -SW has been unable to reach his mother PLAN: CV q15min Restart Zyprexa/Zydis 30mg qhs Restart Gabapentin 600mg TID Hospitalist JERRELL assessment: #Stage 2 non-pressure ulcer L great toe with probable chronic osteomyelitis -Previously seen by ID in 08/2023 recommending amp for definitive cure which pt declined, IV abx with about 70% chance of NO cure which patient declined. Had initially agreed to prolonged PO abx with augmentin x2 weeks and bactrim po x 4 weeks then possibly bactrim MWF indefinitely. Pt did not follow up with treatment and is not interested in treatment. It is highly unlikely the osteomyelitis has been cured but does not appear to be causing any acute issues nor is there evidence of acute infection at time of exam Patient educated on: diagnosis and medication risk/benefits Informed Consent: understands, does not understand and further education needed Reason for continued inpatient stay Substantial Risk for: rapid decompensation Time Spent With Patient Time: Total time managing care of this patient today ____ minutes.
[2024-04-26] MEDS: OLANZapine ODT 10 MG TAB.RAPDIS 30 MG TRANSLINGU (01:02)
[2024-04-26] MEDS: Nicotine Polacrilex 2 MG GUM 4 MG BUCCAL ×5 (01:03→19:20)
--- NOTE | 2024-04-26 02:55 | PC.NURSE ---
Patient up at 0100. Observed pacing in the hills. Appears to be responding to internal stimuli; gesturing and responding verbally.
[2024-04-26] MEDS: clonazePAM 0.5 MG TABLET PO ×4 (06:56→20:49)
[2024-04-26] MEDS: methADONE HCl 20 MG/2 ML ORAL.CONC 140 MG PO (07:38)
[2024-04-26] MEDS: Gabapentin 600 MG TABLET PO ×3 (08:00→20:49)
[2024-04-26] MEDS: Thiamine HCL 100 MG TABLET PO (08:00)
[2024-04-26] MEDS: Folic Acid 1 MG TABLET PO (08:00)
--- NOTE | 2024-04-26 17:38 | P.PNPSI_ITS ---
Subjective Subjective Date of Service: 04/26/24 Reason For Visit: Unspec schizophrenia spectrum &other psychotic d/o Interim History: Met with patient; discussed with team Patient intermittently refusing wound assessment; same presentation overall. He is sleeping at night and continues to deny any SI. Though his presentation remains the same, he continues to report that he is feeling better Mental Status Exam Mental Status Exam Narrative: Pt is alert and oriented; behavior is guarded, superficially cooperative, disorganized, pacing halls non-stop, shaking arm in air and talking to self; patient is not in distress; dressed in casual attire, disheveled, poor hygiene; mood is described as a little better though affect blunted; eye contact limited; Speech is spontaneous and no longer with thought blocking; normal rate, volume and prosody; psychomotor agitation present; thought process goal directed and logical, but concrete; Thought content is on paranoid ideations with grandiosity; denies SI;no HI. Command AH. Patients insight and judgment impaired however he is taking medications and says he will continue to do so. Medications Medications Current Medications Acetaminophen (Acetaminophen 325 Mg Tablet) 650 mg PO Q6H PRN PRN Reason: Headache/Pain Mild Scale (1-3) Last Admin: 04/24/24 14:45 Dose: 650 mg Al Hydroxide/Mg Hydroxide (Magnesium Hydrox/Alum Hydrox 30 Ml Oral.Susp) 30 ml PO Q6H PRN PRN Reason: Heartburn/Nausea Clonazepam (Clonazepam 0.5 Mg Tablet) 0.5 mg PO BID [facility] Last Admin: 04/26/24 08:00 Dose: 0.5 mg Clonazepam (Clonazepam 0.5 Mg Tablet) 0.5 mg PO BID PRN PRN Reason: anxiety/restlessness Last Admin: 04/26/24 06:56 Dose: 0.5 mg Folic Acid (Folic Acid 1 Mg Tablet) 1 mg PO DAILY [facility] Last Admin: 04/26/24 08:00 Dose: 1 mg Gabapentin (Gabapentin 600 Mg Tablet) 600 mg PO TID [facility] Last Admin: 04/26/24 14:48 Dose: 600 mg Hydroxyzine HCl (Hydroxyzine Hcl 25 Mg Tablet) 25 mg PO Q6H PRN PRN Reason: Anxiety Magnesium Hydroxide (Milk Of Magnesia 30 Ml Oral.Susp) 30 ml PO DAILY PRN PRN Reason: Constipation Methadone HCl (Methadone Hcl 20 Mg/2 Ml Oral.Conc) 140 mg PO DAILY [facility] Last Admin: 04/26/24 07:38 Dose: 140 mg Nicotine (Nicotine 21 Mg Patch.Td24) 21 mg TRANSDERMA DAILY PRN PRN Reason: smoking cessation Nicotine Polacrilex (Nicotine Polacrilex 2 Mg Gum) 4 mg BUCCAL Q2H PRN PRN Reason: Nicotine Cravings Last Admin: 04/26/24 14:58 Dose: 4 mg Olanzapine (Olanzapine 5 Mg Tablet) 5 mg PO TID PRN PRN Reason: agitation Olanzapine (Olanzapine Odt 10 Mg Tab.Rapdis) 30 mg TRANSLINGU BEDTIME [facility] Last Admin: 04/26/24 01:02 Dose: 30 mg Thiamine HCl (Thiamine Hcl 100 Mg Tablet) 100 mg PO DAILY [facility] Last Admin: 04/26/24 08:00 Dose: 100 mg Trazodone HCl (Trazodone Hcl 50 Mg Tablet) 50 mg PO BEDTIME MRX1 PRN PRN Reason: Insomnia Allergies Allergies Allergy/AdvReac Type Severity Reaction Status Date / Time haloperidol [From Haldol] AdvReac Severe tongue Verified 07/13/23 14:18 swelling Assessment & Plan Assessment & Plan (1) Schizophrenia, paranoid, chronic with acute exacerbation: Status: Acute Code(s): F20.0 - Paranoid schizophrenia (2) Foot osteomyelitis, left: Status: Acute Code(s): M86.9 - Osteomyelitis, unspecified (3) Peripheral neuropathy: Status: Acute Code(s): G62.9 - Polyneuropathy, unspecified (4) Opiate dependence: Status: Acute Code(s): F11.20 - Opioid dependence, uncomplicated Plan Pt is a 33 yo male with hx of Schizophrenia, depression, opioid dependence, chronic left toe osteomylitis, chronic neuropathic b/l lower limb pain, b/l foot wounds who was recently discharged from on 04/12 after short stay, who sent to ED on for disorganized, psychotic behavior; in ED, reporting SI to jump off bridge. Pt has had a string of inpatient admissions over the summer ([facility] in March, [facility] in January, [place] in January; also [facility] in Sep and October of this year). Patient is a limited historian, willingly participating in discussion but often to internally preoccupied and guarded to finish his sentences. Patient reports that he continues to take his Zyprexa and gabapentin on discharge last week. He talked about being involved in a secret [employer] organization...protecting the world... 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 And that he got overwhelmed by bad news relating to info from the secret organization that prompted him to feel suicidal. It is not clear if patient told his mother he was suicidal; he said that she thought he needed to go to the hospital because he was pacing nonstop outside and worried about the neighbor seeing him. Patient said that pacing helps him to be distracted from is worries and auditory hallucinations which he describes as people talking into my head.... Long conversations... A bunch of people... It is like doing a job. Patient said now on the unit he is feeling some relief. He says he still has SI at times but is very vague. Patient says that Zyprexa is the right medication for him and though he does not want it he will continue taking it; he is not open at all to any medication changes. Formulation/clinical reasoning: long hx of treatment resistant psychosis, chronic medication non-adherence and almost monthly hospitalizations. Addiction has had numerous medication trials that have only been minimally, partially helpful at best. Patient says that he took medication on discharge; it is not clear if this is accurate or why he decompensated. If he did continue taking medications, Perhaps on medications and on a psychiatric unit, which is a very structured environment, he can become okay enough, with SI resolving; but wants discharge back to the community, even on medications, the environment is simply too overwhelming and he quickly decompensates. Or perhaps he stops taking medication. -will try and obtain collateral Hospital course: 04/20 Patient?remains?with?same?presentation,?pacing?the?halls?incessantly. Difficult?with?which?t o?engage?regarding?psychiatric?illness.??He?remains?internally?preoccupied, Not?finishing?sentences,?vague. He reports AH of voices telling him to kill himself and VH of invisible people, with invisible guns that they point at him so he has to keep walking to get away from them... -reviewed Hospitalist PA assessment -Interestingly,?if?conversation?is?switch?to?something?neutral,?his?interest?in? history?or?superficial?topics,? Patient is able to talk more clearly,?even?spontaneously,?asking?questions,?having?full?sentences 04/21 talking to himself incessantly while pacing halls; remains anxious and feeling persecuted by operators of [employer]; AH telling him to pay his bills for the project; patient also reports he is not getting paid for his work on the project; reports still seeing invisible people with invisible guns. Patient again refuses any medication change. But he says my affect is not so bad right? Patient says that while he agrees he could be at home on the same medication dose, he came to the hospital to be around people and to go to groups (though he does not go to groups or talk to anyone) because he is very isolated at home, does not have any friends, and is just alone all the time. He said that he just needs more time and that more time in the hospital he will start to feel better and ready to go home. Thinks that more time on Zyprexa will make a difference. Patient shared that the 1st time he got psychosis was about 5 years ago and for the 1st 3 years he never went to the hospital; he said over the past year he has started going to the hospital, thinks about once a month but is not sure; he says he is also now open to taking medication, specifically Zyprexa. -will not let staff nurses examine his foot; however has seem to allow specific wound nurse to assess Impression: Currently patient is resistant to any medication management that could possibly alleviate his symptoms. That said, account underwriter agrees that his current presentation is a significant improvement from 6 months ago when he was last on [facility]. At that time he refused medication and needed court order to take any. Although he still has little to no insight into having an actual psychiatric illness, this time he seems to accept and want relief from his symptoms via medication and hospital admission. Says he has continued to take Zyprexa 30 mg, even post discharge and says he will remain on it now; says all he needs is more time on this medication and in a supportive environment. While he may have some partial response to Zyprexa, it is account underwriter's very strong impression that there will unlikely be any further reduction of symptoms on this Zyprexa alone and that he very likely requires either an additional antipsychotic vs mood stabilizer or a switch to more potent antipsychotic. Project Associate acknowledges patient's overall improvement. Project Associate discussing with team and colleagues whether not to let patient continue and work out this illness on his own in the community, despite his being hospitalized 1/month for the past 1-2 years or to petition for state hospitalization... There is room for allowing either option. On the 1 hand patient will very likely not see any improvement or have much quality of life without long-term, consistent treatment and rigorous medication management; on the other hand, patient has not actually tried to hurt himself and is coming to the hospital and is taking medication which is a significant improvement. 04/22 says a little better and allowed nursing to address foot wounds. 04/23 did not sleep much last night, pacing; continues to be adherent with medications and says that he is feeling a little better and denies any SI. 04/24 Patient no change in presentation. He says that he is pretty good and ?getting better. ? Reports auditory hallucinations remain and he says ?can you see me talking to them? But also says that overall they are less and more tolerable. He continues to not want any medication changes. 04/25Little change in presentation, with patient pacing the halls, talking himself, however he reports that he is feeling better, that his mood is better. He remains unwilling to consider making any medication changes at all, saying that Zyprexa is working for him. Patient says he thinks he will be ready for discharge soon. He denies any SI. -SW has been unable to reach his mother 04/26 Patient intermittently refusing wound assessment; same presentation overall. He is sleeping at night and continues to deny any SI. Though his presentation remains the same, he continues to report that he is feeling better As mentioned above patient will not improve without medication changes. However, despite the fact that he is disorganized and plagued by delusions and AH internally, he is reportedly feeling better and consistently says so; he also remains without any SI. At this time account underwriter can not say that patient is in imminent risk for harm to self or others. PLAN: CV q15min Continue Zyprexa/Zydis 30mg qhs Continue Gabapentin 600mg TID Hospitalist PA assessment: #Stage 2 non-pressure ulcer L great toe with probable chronic osteomyelitis -Previously seen by ID in 08/2023 recommending amp for definitive cure which pt declined, IV abx with about 70% chance of NO cure which patient declined. Had initially agreed to prolonged PO abx with augmentin x2 weeks and bactrim po x 4 weeks then possibly bactrim MWF indefinitely. Pt did not follow up with treatment and is not interested in treatment. It is highly unlikely the osteomyelitis has been cured but does not appear to be causing any acute issues nor is there evidence of acute infection at time of exam Patient educated on: diagnosis and medication risk/benefits Informed Consent: understands, does not understand and further education needed Reason for continued inpatient stay Substantial Risk for: stable for discharge and med/psych decompensation Time Spent With Patient Time: Total time managing care of this patient today ____ minutes.
[2024-04-26 20:00] VITALS: RESP 18
[2024-04-27] MEDS: OLANZapine ODT 10 MG TAB.RAPDIS 30 MG TRANSLINGU ×2 (02:52→21:10)
[2024-04-27] MEDS: methADONE HCl 20 MG/2 ML ORAL.CONC 140 MG PO (07:53)
[2024-04-27] MEDS: clonazePAM 0.5 MG TABLET PO ×4 (09:00→21:10)
[2024-04-27] MEDS: Thiamine HCL 100 MG TABLET PO (09:00)
[2024-04-27] MEDS: Folic Acid 1 MG TABLET PO (09:00)
[2024-04-27] MEDS: Gabapentin 600 MG TABLET PO ×3 (09:00→21:10)
[2024-04-27] MEDS: Nicotine Polacrilex 2 MG GUM 4 MG BUCCAL ×3 (11:40→18:52)
[2024-04-27] MEDS: Acetaminophen 325 MG TABLET 650 MG PO (15:41)
--- NOTE | 2024-04-27 18:39 | HO.PSYCHPN ---
Subjective Subjective Date of Service: 04/27/24 Reason For Visit: Unspec schizophrenia spectrum &other psychotic d/o Interim History: Met with patient and discussed with team Patient says that he is feeling better and that he is ready to go home. Patient is also sleeping through the night. Discussed how he not been going to his outpatient appointment however patient says he will go this time and knows he needs to continue with medication. When asked how to get there patient says that he has PT1. He remains without any SI Mental Status Exam Mental Status Exam Narrative: Pt is alert and oriented; behavior is guarded, superficially cooperative, disorganized, pacing halls non-stop, shaking arm in air and talking to self; patient is not in distress; dressed in casual attire, unkempt however improved hygiene and showered; mood is described as better though affect blunted; eye contact more appropriate; Speech is spontaneous and normal rate, volume and prosody; mild psychomotor agitation present; thought process goal directed and logical, but concrete; Thought content is on paranoid ideations with grandiosity; denies SI;no HI. Command AH. Patients insight and judgment impaired however he is taking medications and says he will continue to do so. Diagnostics Vital Signs (24Hr): Vital Signs - 24 hr 04/26/24 20:00 Respiratory Rate 18 Medications Medications Current Medications Acetaminophen (Acetaminophen 325 Mg Tablet) 650 mg PO Q6H PRN PRN Reason: Headache/Pain Mild Scale (1-3) Last Admin: 04/27/24 15:41 Dose: 650 mg Al Hydroxide/Mg Hydroxide (Magnesium Hydrox/Alum Hydrox 30 Ml Oral.Susp) 30 ml PO Q6H PRN PRN Reason: Heartburn/Nausea Clonazepam (Clonazepam 0.5 Mg Tablet) 0.5 mg PO BID [facility] Last Admin: 04/27/24 09:00 Dose: 0.5 mg Clonazepam (Clonazepam 0.5 Mg Tablet) 0.5 mg PO BID PRN PRN Reason: anxiety/restlessness Last Admin: 04/27/24 15:41 Dose: 0.5 mg Folic Acid (Folic Acid 1 Mg Tablet) 1 mg PO DAILY [facility] Last Admin: 04/27/24 09:00 Dose: 1 mg Gabapentin (Gabapentin 600 Mg Tablet) 600 mg PO TID [facility] Last Admin: 04/27/24 15:41 Dose: 600 mg Hydroxyzine HCl (Hydroxyzine Hcl 25 Mg Tablet) 25 mg PO Q6H PRN PRN Reason: Anxiety Magnesium Hydroxide (Milk Of Magnesia 30 Ml Oral.Susp) 30 ml PO DAILY PRN PRN Reason: Constipation Methadone HCl (Methadone Hcl 20 Mg/2 Ml Oral.Conc) 140 mg PO DAILY [facility] Last Admin: 04/27/24 07:53 Dose: 140 mg Nicotine (Nicotine 21 Mg Patch.Td24) 21 mg TRANSDERMA DAILY PRN PRN Reason: smoking cessation Nicotine Polacrilex (Nicotine Polacrilex 2 Mg Gum) 4 mg BUCCAL Q2H PRN PRN Reason: Nicotine Cravings Last Admin: 04/27/24 15:41 Dose: 4 mg Olanzapine (Olanzapine 5 Mg Tablet) 5 mg PO TID PRN PRN Reason: agitation Olanzapine (Olanzapine Odt 10 Mg Tab.Rapdis) 30 mg TRANSLINGU BEDTIME [facility] Last Admin: 04/27/24 02:52 Dose: 30 mg Thiamine HCl (Thiamine Hcl 100 Mg Tablet) 100 mg PO DAILY [facility] Last Admin: 04/27/24 09:00 Dose: 100 mg Trazodone HCl (Trazodone Hcl 50 Mg Tablet) 50 mg PO BEDTIME MRX1 PRN PRN Reason: Insomnia Allergies Allergies Allergy/AdvReac Type Severity Reaction Status Date / Time haloperidol [From Haldol] AdvReac Severe tongue Verified 07/13/23 14:18 swelling Assessment & Plan Assessment & Plan (1) Schizophrenia, paranoid, chronic with acute exacerbation: Status: Acute Code(s): F20.0 - Paranoid schizophrenia (2) Foot osteomyelitis, left: Status: Acute Code(s): M86.9 - Osteomyelitis, unspecified (3) Peripheral neuropathy: Status: Acute Code(s): G62.9 - Polyneuropathy, unspecified (4) Opiate dependence: Status: Acute Code(s): F11.20 - Opioid dependence, uncomplicated Plan Pt is a 33 yo male with hx of Schizophrenia, depression, opioid dependence, chronic left toe osteomylitis, chronic neuropathic b/l lower limb pain, b/l foot wounds who was recently discharged from on 04/12 after short stay, who sent to ED on 12B for disorganized, psychotic behavior; in ED, reporting SI to jump off bridge. Pt has had a string of inpatient admissions over the summer ([facility] in March, [facility] in January, [facility] in January; also [facility] in Sep and October of this year). Patient is a limited historian, willingly participating in discussion but often to internally preoccupied and guarded to finish his sentences. Patient reports that he continues to take his Zyprexa and gabapentin on discharge last week. He talked about being involved in a [employer] organization...protecting the world... 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 And that he got overwhelmed by bad news relating to info from the [employer] organization that prompted him to feel suicidal. It is not clear if patient told his mother he was suicidal; he said that she thought he needed to go to the hospital because he was pacing nonstop outside and worried about the neighbor seeing him. Patient said that pacing helps him to be distracted from is worries and auditory hallucinations which he describes as people talking into my head.... Long conversations... A bunch of people... It is like doing a job. Patient said now on the unit he is feeling some relief. He says he still has SI at times but is very vague. Patient says that Zyprexa is the right medication for him and though he does not want it he will continue taking it; he is not open at all to any medication changes. Formulation/clinical reasoning: long hx of treatment resistant psychosis, chronic medication non-adherence and almost monthly hospitalizations. Addiction has had numerous medication trials that have only been minimally, partially helpful at best. Patient says that he took medication on discharge; it is not clear if this is accurate or why he decompensated. If he did continue taking medications, Perhaps on medications and on a psychiatric unit, which is a very structured environment, he can become okay enough, with SI resolving; but wants discharge back to the community, even on medications, the environment is simply too overwhelming and he quickly decompensates. Or perhaps he stops taking medication. -will try and obtain collateral Hospital course: 04/20 Patient?remains?with?same?presentation,?pacing?the?halls?incessantly. Difficult?with?which?to?engage?regarding?psychiatric?illness.??He?remains?internally?preoccupied, Not?finishing?sentences,?vague. He reports AH of voices telling him to kill himself and VH of invisible people, with invisible guns that they point at him so he has to keep walking to get away from them... -reviewed Hospitalist PA assessment -Interestingly,?if?conversation?is?switch?to?something?neutral,?his?interest?in?history?or?superficial?topics,? 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 Patient again refuses any medication change. But he says my affect is not so bad right? Patient says that while he agrees he could be at home on the same medication dose, he came to the hospital to be around people and to go to groups (though he does not go to groups or talk to anyone) because he is very isolated at home, does not have any friends, and is just alone all the time. He said that he just needs more time and that more time in the hospital he will start to feel better and ready to go home. Thinks that more time on Zyprexa will make a difference. Patient shared that the 1st time he got psychosis was about 5 years ago and for the 1st 3 years he never went to the hospital; he said over the past year he has started going to the hospital, thinks about once a month but is not sure; he says he is also now open to taking medication, specifically Zyprexa. -will not let staff nurses examine his foot; however has seem to allow specific wound nurse to assess Impression: Currently patient is resistant to any medication management that could possibly alleviate his symptoms. That said, appeals writer agrees that his current presentation is a significant improvement from 6 months ago when he was last on M5. At that time he refused medication and needed court order to take any. Although he still has little to no insight into having an actual psychiatric illness, this time he seems to accept and want relief from his symptoms via medication and hospital admission. Says he has continued to take Zyprexa 30 mg, even post discharge and says he will remain on it now; says all he needs is more time on this medication and in a supportive environment. While he may have some partial response to Zyprexa, it is appeals writer's very strong impression that there will unlikely be any further reduction of symptoms on this Zyprexa alone and that he very likely requires either an additional antipsychotic vs mood stabilizer or a switch to more potent antipsychotic. Milk Sampler acknowledges patient's overall improvement. Milk Sampler discussing with team and colleagues whether not to let patient continue and work out this illness on his own in the community, despite his being hospitalized 1/month for the past 1-2 years or to petition for state hospitalization... There is room for allowing either option. On the 1 hand patient will very likely not see any improvement or have much quality of life without long-term, consistent treatment and rigorous medication management; on the other hand, patient has not actually tried to hurt himself and is coming to the hospital and is taking medication which is a significant improvement. 04/22 says a little better and allowed nursing to address foot wounds. 04/23 did not sleep much last night, pacing; continues to be adherent with medications and says that he is feeling a little better and denies any SI. 04/24 Patient no change in presentation. He says that he is pretty good and ?getting better. ? Reports auditory hallucinations remain and he says ?can you see me talking to them? But also says that overall they are less and more tolerable. He continues to not want any medication changes. 04/25Little change in presentation, with patient pacing the halls, talking himself, however he reports that he is feeling better, that his mood is better. He remains unwilling to consider making any medication changes at all, saying that Zyprexa is working for him. Patient says he thinks he will be ready for discharge soon. He denies any SI. -SW has been unable to reach his mother 04/26 Patient intermittently refusing wound assessment; same presentation overall. He is sleeping at night and continues to deny any SI. Though his presentation remains the same, he continues to report that he is feeling better 04/27 Patient says that he is feeling better and that he is ready to go home. Patient is also sleeping through the night. Discussed how he not been going to his outpatient appointment however patient says he will go this time and knows he needs to continue with medication. When asked how to get there patient says that he has PT1. He remains without any SI Patient is at baseline on current medication regimen. As mentioned above patient will not improve without medication changes. However, on current medication, while patient outwardly remains mildly-to moderately disorganized (though he consistently he eats, drinks, sleeps, and now attends to hygiene) and plagued by delusions and AH... He internally says he is feeling better and consistently reports so; he remains without any SI and is returning home to live with his mother who is supportive. It is likely patient will eventually decompensate further and require hospitalization again. At this time however he is not in imminent risk for harm to self or others and though he has limitations, he currently seems to be able to care of himself well enough in the community. Request for discharge honored. PLAN: CV q15min Continue Zyprexa/Zydis 30mg qhs Continue Gabapentin 600mg TID PLAN: CV q15min Restart Zyprexa/Zydis 30mg qhs Restart Gabapentin 600mg TID Hospitalist PA assessment: #Stage 2 non-pressure ulcer L great toe with probable chronic osteomyelitis -Previously seen by ID in 08/2023 recommending amp for definitive cure which pt declined, IV abx with about 70% chance of NO cure which patient declined. Had initially agreed to prolonged PO abx with augmentin x2 weeks and bactrim po x 4 weeks then possibly bactrim MWF indefinitely. Pt did not follow up with treatment and is not interested in treatment. It is highly unlikely the osteomyelitis has been cured but does not appear to be causing any acute issues nor is there evidence of acute infection at time of exam Patient educated on: diagnosis and medication risk/benefits Informed Consent: understands, does not understand and further education needed Reason for continued inpatient stay Substantial Risk for: stable for discharge Time Spent With Patient Time: Total time managing care of this patient today ____ minutes.
[2024-04-27 20:00] VITALS: RESP 16
[2024-04-28] MEDS: methADONE HCl 20 MG/2 ML ORAL.CONC 140 MG PO (07:51)
[2024-04-28] MEDS: Nicotine Polacrilex 2 MG GUM 4 MG BUCCAL ×2 (08:19→10:58)
[2024-04-28] MEDS: Thiamine HCL 100 MG TABLET PO (08:20)
[2024-04-28] MEDS: Gabapentin 600 MG TABLET PO (08:20)
[2024-04-28] MEDS: Folic Acid 1 MG TABLET PO (08:20)
[2024-04-28] MEDS: clonazePAM 0.5 MG TABLET PO ×2 (08:20→10:58)
--- NOTE | 2024-04-28 13:16 | P.DS_ITS ---
DS: Providers Provider Date of Service: 04/28/24 Date of admission: 04/18/24 16:57 Date of discharge: 04/28/24 Primary care physician: None Physician Attending physician on admission: Geronimo Dey Consults: 04/18/24 17:18 Consult to Hospitalist Routine Comment: Consulting Provider: Hospitalist Reason For Exam: admission physical 04/18/24 20:23 Consult to Wound Care Routine Reason for consultation: b/l open foot wounds DS: Diagnosis Discharge Diagnosis (1) Schizophrenia, paranoid, chronic with acute exacerbation: Status: Acute (2) Foot osteomyelitis, left: Status: Acute (3) Peripheral neuropathy: Status: Acute (4) Opiate dependence: Status: Acute DS: Medications Discharge Medications Home Medications: Previous Rx's ?Medication ?Instructions ?Recorded clonazepam 0.5 mg tablet 0.5 mg PO BID #14 tabs 04/28/24 folic acid 1 mg tablet 1 mg PO DAILY #30 tabs 04/28/24 gabapentin 600 mg tablet 600 mg PO TID #21 tabs 04/28/24 methadone 10 mg/mL oral 140 mg (14 mL) PO DAILY #0 mL 04/28/24 concentrate (Methadose) naloxone 4 mg/actuation nasal 4 mg intranasal Q2M PRN opioid 04/28/24 spray (Narcan) overdose 1 day #2 ea nicotine (polacrilex) 2 mg gum 4 mg buccal Q2H PRN Nicotine 04/28/24 Cravings #100 ea olanzapine 20 mg tablet 30 mg (1.5 x 20 mg) PO BEDTIME 30 04/28/24 days #45 tabs thiamine mononitrate (vit B1) 100 100 mg PO DAILY #30 tabs 04/28/24 mg tablet trazodone 50 mg tablet 50 mg PO BEDTIME MRX1 PRN Insomnia 04/28/24 #60 tabs Mental Status Exam Mental Status Exam Narrative: Pt is alert and oriented; behavior is guarded, superficially cooperative, pacing halls, talking to self; patient is not in distress; dressed in casual attire, unkempt however improved hygiene and showered; mood is described as better though affect blunted; eye contact more appropriate; Speech is spontaneous and normal rate, volume and prosody; mild psychomotor agitation present; thought process goal directed and logical, but concrete; Thought content is on paranoid ideations with grandiosity; denies SI;no HI. Command AH. Patients insight and judgment impaired however he is taking medications and says he will continue to do so. DS: Summary Hospital Course Hospital Course: Pt is a 33 yo male with hx of Schizophrenia, depression, opioid dependence, chronic left toe osteomylitis, chronic neuropathic b/l lower limb pain, b/l foot wounds who was recently discharged from on 04/12 after short stay, who sent to ED on 12B for disorganized, psychotic behavior; in ED, reporting SI to jump off bridge. Pt has had a string of inpatient admissions over the summer ([facility] in March, [facility] in January, [facility] in January; also [facility] in Sep and October of this year). Patient is a limited historian, willingly participating in discussion but often to internally preoccupied and guarded to finish his sentences. Patient reports that he continues to take his Zyprexa and gabapentin on discharge last week. He talked about being involved in a [employer]...protecting the world... 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 And that he got overwhelmed by bad news relating to info from the [employer] that prompted him to feel suicidal. It is not clear if patient told his mother he was suicidal; he said that she thought he needed to go to the hospital because he was pacing nonstop outside and worried about the neighbor seeing him. Patient said that pacing helps him to be distracted from is worries and auditory hallucinations which he describes as people talking into my head.... Long conversations... A bunch of people... It is like doing a job. Patient said now on the unit he is feeling some relief. He says he still has SI at times but is very vague. Patient says that Zyprexa is the right medication for him and though he does not want it he will continue taking it; he is not open at all to any medication changes. Formulation/clinical reasoning: long hx of treatment resistant psychosis, chronic medication non-adherence and almost monthly hospitalizations. Addiction has had numerous medication trials that have only been minimally, partially helpful at best. Patient says that he took medication on discharge; it is not clear if this is accurate or why he decompensated. If he did continue taking medications, Perhaps on medications and on a psychiatric unit, which is a very structured environment, he can become okay enough, with SI resolving; but wants discharge back to the community, even on medications, the environment is simply too overwhelming and he quickly decompensates. Or perhaps he stops taking medication. -will try and obtain collateral Hospital course: 04/20 Patient?remains?with?same?presentation,?pacing?the?halls?incessantly. 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 He reports AH of voices telling him to kill himself and of invisible people, with invisible guns that they point at him so he has to keep walking to get away from them... -reviewed Hospitalist PA assessment -Interestingly,?if?conversation?is?switch?to?somethin g?neutral,?his?interest?in?history?or?superficial?topics,? 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 Patient again refuses any medication change. But he says my affect is not so bad right? Patient says that while he agrees he could be at home on the same medication dose, he came to the hospital to be around people and to go to groups (though he does not go to groups or talk to anyone) because he is very isolated at home, does not have any friends, and is just alone all the time. He said that he just needs more time and that more time in the hospital he will start to feel better and ready to go home. Thinks that more time on Zyprexa will make a difference. Patient shared that the 1st time he got psychosis was about 5 years ago and for the 1st 3 years he never went to the hospital; he said over the past year he has started going to the hospital, thinks about once a month but is not sure; he says he is also now open to taking medication, specifically Zyprexa. -will not let staff nurses examine his foot; however has seem to allow specific wound nurse to assess formulation: Currently patient is resistant to any medication management that could possibly alleviate his symptoms. That said, group underwriter agrees that his current presentation is a significant improvement from 6 months ago when he was last on [facility]. At that time he refused medication and needed court order to take any. Although he still has little to no insight into having an actual psychiatric illness, this time he seems to accept and want relief from his symptoms via medication and hospital admission. Says he has continued to take Zyprexa 30 mg, even post discharge and says he will remain on it now; says all he needs is more time on this medication and in a supportive environment. While he may have some partial response to Zyprexa, it is group underwriter's very strong impression that there will unlikely be any further reduction of symptoms on this Zyprexa alone and that he very likely requires either an additional antipsychotic vs mood stabilizer or a switch to more potent antipsychotic. Network Support Specialist acknowledges patient's overall improvement. Network Support Specialist discussing with team and colleagues whether not to let patient continue and work out this illness on his own in the community, despite his being hospitalized 1/month for the past 1-2 years or to petition for state hospitalization... There is room for allowing either option. On the 1 hand patient will very likely not see any improvement or have much quality of life without long-term, consistent treatment and rigorous medication management; on the other hand, patient has not actually tried to hurt himself and is coming to the hospital and is taking medication which is a significant improvement. 04/22 says a little better and allowed nursing to address foot wounds. 04/23 did not sleep much last night, pacing; continues to be adherent with medications and says that he is feeling a little better and denies any SI. 04/24 Patient no change in presentation. He says that he is pretty good and ?getting better. ? Reports auditory hallucinations remain and he says ?can you see me talking to them? But also says that overall they are less and more tolerable. He continues to not want any medication changes. 04/25Little change in presentation, with patient pacing the halls, talking himself, however he reports that he is feeling better, that his mood is better. He remains unwilling to consider making any medication changes at all, saying that Zyprexa is working for him. Patient says he thinks he will be ready for discharge soon. He denies any SI. -SW has been unable to reach his mother 04/26 Patient intermittently refusing wound assessment; same presentation overall. He is sleeping at night and continues to deny any SI. Though his presentation remains the same, he continues to report that he is feeling better 04/27 Patient says that he is feeling better and that he is ready to go home. Patient is also sleeping through the night. Discussed how he not been going to his outpatient appointment however patient says he will go this time and knows he needs to continue with medication. When asked how to get there patient says that he has PT1. He remains without any SI -patient has chronic osteomyelitis that has been assessed and remained stable; overall patient has allowed nursing assess other foot lesions often enough which also remained stable Patient is at baseline on current medication regimen. As mentioned above patient will not improve without medication changes. However, on current medication, while patient outwardly remains mildly-to moderately disorganized (though he consistently he eats, drinks, sleeps, and now attends to hygiene) and plagued by delusions and AH... He internally says he is feeling better and consistently reports so; he remains without any SI and is returning home to live with his mother who is supportive. It is likely patient will eventually decompensate further and require hospitalization again. At this time however he is not in imminent risk for harm to self or others and though he has limitations, he currently seems to be able to care of himself well enough in the community. Request for discharge honored. Medication Continue Zyprexa/Zydis 30mg qhs Continue Gabapentin 600mg TID Continue clonazepam Time spent discussing smoking cessation with patient: 3 to 10 minutes Status at Discharge Functional status at discharge: independent ambulation Overall status at discharge: patient is back to baseline Time Spent with Patient Time attestation: Total time managing care of this patient today ____ minutes. Time spent: Less than 30 minutes Discharge Plan Discharge Anticipated Discharge Date/Time: 04/28/24 12:00 Patient Disposition: Home, Self-Care Discharge Diagnosis: Paranoid Schizophrenia Peripheral Neuropathy Opiate Use Disorder- MAT therapy Referrals: [facility]- Pattie Nolasco (Therapy Intake) [Other] - 05/02/24 2:00 pm (Please arrive 15 minutes before scheduled appointment time to complete the necessary paperwork ) [facility]- Tootie Manuel (Medication Management) [Other] - 05/31/24 11:00 am (Telehealth appointment ) [facility]- Tootie Manuel (Medication Management) [Other] - 06/28/24 10:00 am (Telehealth Appointment ) Physician,None [Primary Care Provider] - 1 Week Discharge Medications: New gabapentin 600 mg Tablet 600 mg PO TID Qty: 21 4RF nicotine (polacrilex) 2 mg Gum 4 mg buccal Q2H PRN (Reason: Nicotine Cravings) Qty: 100 0RF clonazepam 0.5 mg Tablet 0.5 mg PO BID Qty: 14 4RF trazodone 50 mg Tablet 50 mg PO BEDTIME MRX1 PRN (Reason: Insomnia) Qty: 60 0RF folic acid 1 mg Tablet 1 mg PO DAILY Qty: 30 0RF thiamine mononitrate (vit B1) 100 mg Tablet 100 mg PO DAILY Qty: 30 0RF methadone [Methadose] 10 mg/mL Concentrate 140 mg PO DAILY Qty: 0 0RF Rx Instructions: Partial Fill upon patient request. Continued olanzapine 20 mg Tablet 30 mg PO BEDTIME 30 Days Qty: 45 0RF naloxone [Narcan] 4 mg/actuation spray,non-aerosol 4 mg intranasal Q2M PRN (Reason: opioid overdose) 1 Days Qty: 2 0RF Rx Instructions: spray 1 dose into ONE nostril; alternate nostrils w each dose until help arrives Discontinued nicotine (polacrilex) 4 mg gum 4 mg buccal Q2H PRN (Reason: nicotine cravings) 30 Days Qty: 100 0RF gabapentin 600 mg tablet 600 mg PO TID 30 Days Qty: 90 0RF methadone [Methadose] 10 mg/mL concentrate 140 mg PO DAILY clonazepam 0.5 mg Tablet 0.5 mg PO BID 15 Days Qty: 30 1RF clonazepam [Klonopin] 0.5 mg tablet 0.5 mg PO BID MDD 1mg PRN (Reason: Anxiety) 7 Days Qty: 14 3RF Discharge Orders: Discharge Order (Routine); Ordered 04/28/24 Ordered By: Cookie Varela Diet: Advance to usual diet Activity on Discharge: As tolerated Stand Alone Forms: Patient Portal Discharge page, Community Support Print Language: Dominican Care Plan Goals: Mood and Behavioral Stabilization Abstinence Health Concerns: Mood and Behavioral Stabilization Abstinence Plan of Treatment: Attend scheduled appointments Take medications as directed Call/Return as needed Assessment: No SI/HI/AH/VH Scheduled discharge with team. Discharge Date/Time: 04/28/24 11:30
== END 2024-04-28 11:30 | disposition home or self-care (01) | DRG 750 ==
PROVIDERS: Admitting Provider Psychiatry & Neurology Psychiatry; Visit Provider Psychiatry & Neurology Psychiatry
DX: F20.0 Paranoid schizophrenia (principal); R45.851 Suicidal ideations; L97.529 Non-pressure chronic ulcer of other part of left foot with unspecified severity; F11.20 Opioid dependence, uncomplicated; M86.672 Other chronic osteomyelitis, left ankle and foot; F17.210 Nicotine dependence, cigarettes, uncomplicated; G62.9 Polyneuropathy, unspecified; Z71.6 Tobacco abuse counseling; Z79.899 Other long term (current) drug therapy

== ENCOUNTER → 2024-04-18 16:57 | Outpatient (BNV) | payer OTHER, SELFPAY | PROVIDERS: Admitting Provider Psychiatry & Neurology Psychiatry; Visit Provider Physician Assistant | DX: Z00.8 Encounter for other general examination (principal) | CPT/HCPCS: 99429 ==

== ENCOUNTER → 2024-04-18 16:57 | Outpatient (BNV) | payer OTHER, SELFPAY | PROVIDERS: Admitting Provider Psychiatry & Neurology Psychiatry; Visit Provider Psychiatry & Neurology Psychiatry | DX: F20.0 Paranoid schizophrenia (principal); F11.20 Opioid dependence, uncomplicated; M86.9 Osteomyelitis, unspecified; G62.9 Polyneuropathy, unspecified | CPT/HCPCS: 99231; 99232; 99238 ==

== ENCOUNTER 2024-12-01 11:37 | Inpatient (IN) | payer OTHER, SELFPAY ==
--- NOTE | ~2024-12-01 | XR_ITS ---
EXAMINATION: XR TIBIA AND FIBULA, BILATERAL CLINICAL INFORMATION: pain COMPARISON: None available. TECHNIQUE: AP and lateral views of the right and left tibia and fibula were obtained. FINDINGS: The bones and soft tissues are normal. No fractures. No osseous lesions. XR/XR Tibia Fibula Andrew 2V IMPRESSION: Normal bilateral tibia and fibula. Electronically signed by: Fabio Nation MD 12/01/2024 02:17 PM EDT
--- NOTE | ~2024-12-01 | XR_ITS ---
EXAMINATION: XR FOOT, BILATERAL CLINICAL INFORMATION: pAIN COMPARISON: None available. TECHNIQUE: AP, lateral, and oblique views of the bilateral feet FINDINGS: The bones and soft tissues are normal. No fractures. Alignment is anatomic. Joint spaces are maintained. Normal plantar arches. Soft tissue swelling of the dorsal forefoot left greater than right. XR/XR Foot Anderw 3V IMPRESSION: 1. No acute osseous abnormalities in either foot. 2. Soft tissue swelling of the dorsal forefoot left greater than right. Electronically signed by: Fabio Nation MD 12/01/2024 02:22 PM EDT
--- NOTE | ~2024-12-01 | XR_ITS ---
EXAMINATION: XR BILATERAL HIPS WITH AP PELVIS CLINICAL INFORMATION: pain COMPARISON: None available. TECHNIQUE: AP and frog-leg lateral views of each hip and an AP view of the pelvis. FINDINGS: No fracture, dislocation, or suspicious bone lesion. Normal hip joint alignment bilaterally. No significant degenerative arthritis. Bilateral subchondral sclerosis and irregularity of the femoral heads, suggestive of AVN without subchondral collapse. Recommend MRI for confirmation. The sacrum is normal. The SI joints appear normal. There is no soft tissue abnormality. XR/XR hips JHON min 3V IMPRESSION: Suggestion of AVN of the bilateral femoral heads without subchondral collapse. Recommend MRI for confirmation. Otherwise normal bilateral and pelvic x-rays. Electronically signed by: Fabio Nation MD 12/01/2024 02:14 PM EDT
[2024-12-01 11:46] VITALS: BP 100/56; PULSE 95; O2SAT 95
[2024-12-01 11:47] VITALS: BP 102/65; PULSE 92; RESP 18; TEMP 36.5; O2SAT 99; BMI 23.2
[2024-12-01 13:28] LABS: Appearance Urine Clear; Color Urine Yellow; Glucose Urine UA Negative (Negative); Leukocyte Esterase Urine Negative (Negative); Nitrite Urine Negative (Negative); PH 6.5 (5.0-9.0); Specific Gravity - Urine <= 1.005 (1.005-1.025); Urine Blood Negative (Negative); Urine Ketones Negative (Negative); Urine Protein Negative (Neg-Trace)
[2024-12-01 13:37] LABS: Amphetamine Screen Urine Not Detected (Not Detect); Barbiturates, Urine Not Detected (Not Detect); Benzodiazepines Screen Urine Not Detected (Not Detect); Buprenorphine Scr Not Detected (Not Detect); Cannabinoid Screen Urine Not Detected (Not Detect); Cocaine Screen Urine Not Detected (Not Detect); Fentanyl, urine Not Detected (Not Detect); Methadone Screen, Urine Positive (Not Detect); Opiate Screen Urine Not Detected (Not Detect); Oxycodone Screen Urine Not Detected (Not Detect); Phencyclidine Screen Urine Not Detected (Not Detect)
--- OUTSIDE RECORDS SUMMARY | 2024-12-01 14:22 | XMS_ITS | Clinical Summary ---
Author Organization [facility] ity Address [address] [place] [address] Care Team Providers Care Manufacturing Engineering Manager Name Role Phone Di Juarez MD Primary Care Provider [phone] Medical History Medical History Date Comments Alcohol abuse DX:Alcohol abuse Drug abuse (CMS/HCC V24, CMS/HCC V28) DX:Drug abuse ([facility]); COMMENT: cocaine, heroin Methadone maintenance therap y patient (CMS/HCC V24, CMS/HCC V28) DX:Methadone maintenance th erapy patient ([facility]) Anxiety and depression DX:Anxiet y and depression Social History Tobacco Use Types Packs/Day Years Used Date Smoking Tobacco: Never Assessed Sex and Gender Information Value Date Recorded Sex Assigned at Not on file Legal Sex Male 9:13 PM EST Gender Identity Not on file Sexual Orientation Not on file Obstetrics History Plan of Treatment Health Maintenance Due Date Last Done Comments DTaP,Tdap,and Td Vaccines (1 - Tdap) 2009 Hepatitis B Vaccines (1 of 3 - 19+ 3-dose series) 2009 Depression Screening 08/28/2023 HIV Screening 08/28/2023 Hepatitis C Screening 08/28/2023 Social Influencers of Health Screening 08/28/2023 COVID-19 Vaccine ( - 2023-2 5 season) 2024 Influenza Vaccine (Season Ended) 2025 HIB Vaccines Aged Out No longer eligi ble based on patient's age to complete this topic HPV Vaccines Aged Out No longer eligi ble based on patient's age to complete this topic Hepatitis A Vaccines Aged Out No long er eligible based on patient's age to complete this topic IPV Vaccines Aged Out No longer eligi ble based on patient's age to complete this topic MMR Vaccines Aged Out No longer eligi ble based on patient's age to complete this topic Meningococcal ACWY Vaccine Aged Out N o longer eligible based on patient's age to complete this topic Meningococcal B Vaccine Aged Out No l onger eligible based on patient's age to complete this topic Pneumococcal Vaccine: Pediat rics (0 to 5 Years) and At-Risk Patients (6 to 64 Years) Aged Out No longer eligible b ased on patient's age to complete this topic RSV Immunization Patients Un vinicio 20 months Aged Out No longer eligible b ased on patient's age to complete this topic Varicella Vaccines Aged Out No longer eligible based on patient's age to complete this topic Care Teams Manufacturing Engineering Manager Relationship Specialty Start Date End Date Di Juarez MD PCP - General 05/27/23
--- NOTE | 2024-12-01 14:24 | PC.NURSE ---
MD Kincaid aware that unable to retrieve lab work and IV from pt. Informed charge Alona of this matter.
--- NOTE | 2024-12-01 14:35 | ED.GENADULT ---
HPI - General Adult General Chief complaint: General Medical Stated complaint: L ANKLE PAIN/SWELLING X2D PER EMS Time Seen by Provider: 12/01/24 11:48 Source: patient Mode of arrival: EMS Limitations: other History of Present Illness HPI narrative: This is a 34-year-old man with a past medical history of opiate use disorder on Methadone, history of IVDU, peripheral neuropathy, schizophrenia, history of cellulitis, history of suspicious MRI with left distal phalanx osteomyelitis (August 2023) who is BIBEMS on a section 21 from [place] for evaluation of lower extremity wounds. Patient states having left foot/toe pain. He states noting pus from his right foot. He states also having right hip pain. He states no trauma. He states no fevers or chills. He states no myalgias. He states no chest pain or dyspnea. He states no GI or symptoms. He started starting antibiotics yesterday. Related Data Previous Rx's ?Medication ?Instructions ?Recorded clonazepam 0.5 mg tablet 0.5 mg PO BID #14 tabs 04/28/24 folic acid 1 mg tablet 1 mg PO DAILY #30 tabs 04/28/24 gabapentin 600 mg tablet 600 mg PO TID #21 tabs 04/28/24 methadone 10 mg/mL oral 140 mg (14 mL) PO DAILY #0 mL 04/28/24 concentrate (Methadose) naloxone 4 mg/actuation nasal 4 mg intranasal Q2M PRN opioid 04/28/24 spray (Narcan) overdose 1 day #2 ea nicotine (polacrilex) 2 mg gum 4 mg buccal Q2H PRN Nicotine 04/28/24 Cravings #100 ea olanzapine 20 mg tablet 30 mg (1.5 x 20 mg) PO BEDTIME 30 04/28/24 days #45 tabs thiamine mononitrate (vit B1) 100 100 mg PO DAILY #30 tabs 04/28/24 mg tablet trazodone 50 mg tablet 50 mg PO BEDTIME MRX1 PRN Insomnia 04/28/24 #60 tabs Allergies Allergy/AdvReac Type Severity Reaction Status Date / Time haloperidol [From Haldol] AdvReac Severe tongue Verified 12/01/24 12:05 swelling Review of Systems Review of Systems: ROS as per HPI [facility] Past Medical History Medical History Routine medical exam Cellulitis of great toe, left Peripheral neuropathy History of intravenous drug abuse Opiate dependence Social History Social History Household Members: Family Household Members Other:: MOM Housing: House Do you presently have visiting nurse or other home services: No Unable to assess alcohol history related to: Refusing to respond Patient Tobacco Use Status: Current everyday Tobacco user Tobacco use type: Cigarette Cigarette Packs Per Day: 1 Cigarettes Per Day: 20.0 Years Smoked: 19 Smoked in Last 30 Days: No e-Cigarette/Vaping Use: Never Used Second Hand Smoke Exposure: No Use of substances other than those prescribed or required for medical reasons: No Advance Directives: No Advance Directives Information Provided: No service: No Sexual orientation: Straight/Heterosexual Physical Exam ED Vital Signs: Vital Signs - 24 hr 12/01/24 11:47 Temperature 97.7 F Pulse Rate 92 Respiratory Rate 18 Blood Pressure 102/65 Pulse Oximetry 99 Oxygen Delivery Method Room Air BMI result Body Mass Index 23.2 Gen: NAD, AOx3 HEENT: NCAT, EOMI, normal conjunctiva CV: RRR, 2+ bilateral DP/PT pulses Pulm: CTAB, no increased work of breathing GI: Soft, NTND, no rebound, guarding or rigidity Neuro: Grossly non focal Skin: Warm, dry, superficial area of ulcerated skin to the right toe, left toe/foot with skin/fluctuance/ecchymosis/erythema/warmth and scant serosanguineous drainage Medications Administered Generic Name Dose Route Start Last Admin Trade Name Freq PRN Reason Stop Dose Admin Sodium Chloride 1,000 mls @ 999 mls/hr 12/01/24 16:00 12/01/24 15:56 Ns IV 12/01/24 17:00 999 mls/hr .Q1H1M ARISTIDES Administration Discontinued Medications Generic Name Dose Route Start Last Admin Trade Name Freq PRN Reason Stop Dose Admin Sodium Chloride 1,000 mls @ 999 mls/hr 12/01/24 13:00 12/01/24 15:28 Ns IV 12/01/24 14:00 999 mls/hr .Q1H1M ARISTIDES Administration Piperacillin Sod/Tazobactam 50 mls @ 100 mls/hr 12/01/24 15:30 12/01/24 15:49 Sod 3.375 gm/ Sodium Chloride IV 12/01/24 15:59 100 mls/hr ONCE ONE Administration Medical Decision Making Medical Decision Making [facility] Narrative: Differential diagnosis includes, but is not limited to cellulitis, arthritis, abscess, osteomyelitis. Patient is afebrile and hemodynamically stable on room air. Exam as above is consistent with acute cellulitis now given patient's history of intravenous drug use, prior history of osteomyelitis the concerning for osteomyelitis and potential soft tissue abscess. X-rays obtained as below with no evidence of free air. Exam demonstrates no crepitus and the patient has no fever or systemic symptoms to suggest necrotizing soft tissue infection so this is of low clinical suspicion. I reviewed x-rays as below. I reviewed the patient's labs as below. Blood cultures pending. Patient is treated empirically with vancomycin given history of intravenous drug use and purulence. Patient also provided broad-spectrum antibiotics with Zosyn. Patient is treated supportively with IV fluids. Patient provided home doses of gabapentin and clonazepam. I discussed the patient's case and management with admitting hospitalist, Dr. Giles, who accepts the patient for further workup and management. At request of the admitting hospitalist, MRI of the left foot with and without contrast is ordered for further evaluation of left foot infection and concern for osteomyelitis (results pending at time of admission) Admission/Observation Consideration of admission/observation: Escalation of care including admission/observation considered Consult Healthcare Provider Management of the patient was discussed with: Hospitalist Lab Data [facility] Lab Attestation statement: I reviewed the patient's lab results. Urinalysis noncontributory. Urine drug screen positive for methadone. Labs notable for stable anemia with hemoglobin 11.2, thrombocytopenia with platelet count 123. Metabolic panel overall unremarkable. There is mild transaminitis with AST and ALT of 65 and 55, which is nonspecific. There is very mild hyperbilirubinemia with bilirubin 1.1 nonspecific as the patient has no abdominal complaints. CRP 22.5. ESR pending at time of admission. 12/01/24 13:04 12/01/24 13:04 Labs: Lab Results 12/01/24 Range/Units 13:04 WBC 6.7 (4.8-10.8) X10*3/uL RBC 3.53 L (4.60-5.80) X10*6/uL Hgb 11.2 L (14.0-18.0) g/dl Hct 32.3 L (42.0-52.0) % MCV 91.5 (80.0-98.0) fL MCH 31.7 (27.0-33.0) pg MCHC 34.7 (31.0-36.0) g/dl RDW 14.2 (11.0-16.0) % Plt Count 123 L D (160-400) X10*3/uL MPV 11.8 (9.4-12.4) fL Immature Gran % (Auto) 1.3 H (0.0-0.4) % Neut % (Auto) 63.8 (45-73) % Lymph % (Auto) 23.7 (20-40) % [place] % (Auto) 9.1 (2-11) % Eos % (Auto) 1.8 (0-4) % Baso % (Auto) 0.3 (0-2) % Lymph # (Auto) 1.6 (1.2-4.9) X10*3/uL [place] # (Auto) 0.6 (0.1-1.2) X10*3/uL Eos # (Auto) 0.1 (0.0-0.4) X10*3/uL Baso # (Auto) 0.0 (0.0-0.2) X10*3/uL Abs Immat Gran (auto) 0.09 H (0.00-0.03) X10*3/uL Absolute Neuts (auto) 4.3 (2.0-8.3) x10*3/uL Absolute Nucleated RBC 0.000 (0.0-0.012) X10*3/uL Nucleated RBC % (auto) 0.0 (0.0-0.2) /100WBC Sodium 136 (135-145) mmol/L Potassium 3.8 (3.3-5.1) mmol/L Chloride 97 (96-108) mmol/L Carbon Dioxide 32 H (22-29) mmol/L Anion Gap 11 L (12-20) BUN 8 L (9-16) mg/dL Creatinine 0.65 (0.5-1.4) mg/dL Estim Creat Clear Calc 185.2 Estimated GFR > 60 Random Glucose 87 (60-115) mg/dL Lactic Acid 0.7 (0.5-2.0) mmol/L Calcium 8.6 (8.4-10.2) mg/dL Total Bilirubin 1.1 H (0.0-1.0) mg/dL AST 65 H (5-37) U/L ALT 55 H (0-40) U/L Alkaline Phosphatase 109 (39-117) U/L C-Reactive Protein 22.35 H (< or = 0.50) mg/dL Total Protein 7.1 (6.5-8.0) g/dL Albumin 3.2 L (3.5-5.0) g/dL Urine Color Yellow Urine Appearance Clear Urine pH 6.5 (5.0-9.0) Ur Specific [place] <= 1.005 (1.005-1.025) Urine Protein Negative (Neg-Trace) mg/dL Urine Glucose (UA) Negative (Negative) mg/dL Urine Ketones Negative (Negative) mg/dL Urine Blood Negative (Negative) Urine Nitrite Negative (Negative) Ur Leukocyte Esterase Negative (Negative) Urine Opiates Screen Not Detected (Not Detect) Ur Buprenorphine Scrn Not Detected (Not Detect) ng/mL Ur Oxycodone Screen Not Detected (Not Detect) ng/mL Urine Methadone Screen Positive H (Not Detect) ng/mL Urine Fentanyl Screen Not Detected (Not Detect) Ur Barbiturates Screen Not Detected (Not Detect) Ur Phencyclidine Scrn Not Detected (Not Detect) Ur Amphetamines Screen Not Detected (Not Detect) U Benzodiazepines Scrn Not Detected (Not Detect) Urine Cocaine Screen Not Detected (Not Detect) U Marijuana (THC) Screen Not Detected (Not Detect) Independent Interpretation I performed an independent interpretation of an: Plain X-Ray Interpretation: Per my interpretation, x-ray of the hips, tibia/fibula and feet demonstrate no acute fracture or dislocation. Radiology Impression Discussion of test interpretation with radiology: I have reviewed the radiologist's reading. Radiologist Impression: XR/XR Foot Jhon 3V IMPRESSION: 1. No acute osseous abnormalities in either foot. 2. Soft tissue swelling of the dorsal forefoot left greater than right. Electronically signed by: Fabio Nation MD 12/01/2024 02:22 PM EDT Dictated By: Fabio Nation MD Signed By: <Electronically signed by Fabio Nation MD in [place]> 12/01/24 1422 XR/XR Tibia Fibula Jhon 2V IMPRESSION: Normal bilateral tibia and fibula. Electronically signed by: Fabio Nation MD 12/01/2024 02:17 PM EDT RP Dictated By: Fabio Nation MD Signed By: <Electronically signed by Fabio Nation MD in [place]> 12/01/24 1417 XR/XR hips JHON min 3V IMPRESSION: Suggestion of AVN of the bilateral femoral heads without subchondral collapse. Recommend MRI for confirmation. Otherwise normal bilateral and pelvic x-rays. Electronically signed by: Fabio Nation MD 12/01/2024 02:14 PM EDT RP Dictated By: Fabio Nation MD Signed By: <Electronically signed by Fabio Nation MD in [place]> 12/01/24 1414 Discharge Plan Discharge Clinical Impression: Cellulitis of foot, right Patient Disposition: Admitted As Inpatient Prescriptions: No Action gabapentin 600 mg Tablet 600 mg PO TID Qty: 21 4RF nicotine (polacrilex) 2 mg Gum 4 mg buccal Q2H PRN (Reason: Nicotine Cravings) Qty: 100 0RF clonazepam 0.5 mg Tablet 0.5 mg PO BID Qty: 14 4RF trazodone 50 mg Tablet 50 mg PO BEDTIME MRX1 PRN (Reason: Insomnia) Qty: 60 0RF folic acid 1 mg Tablet 1 mg PO DAILY Qty: 30 0RF thiamine mononitrate (vit B1) 100 mg Tablet 100 mg PO DAILY Qty: 30 0RF olanzapine 20 mg Tablet 30 mg PO BEDTIME 30 Days Qty: 45 0RF naloxone [Narcan] 4 mg/actuation spray,non-aerosol 4 mg intranasal Q2M PRN (Reason: opioid overdose) 1 Days Qty: 2 0RF Rx Instructions: spray 1 dose into ONE nostril; alternate nostrils w each dose until help arrives methadone [Methadose] 10 mg/mL Concentrate 140 mg PO DAILY Qty: 0 0RF Rx Instructions: Partial Fill upon patient request. Print Language: Estonian
[2024-12-01 15:24] LABS: MANUAL DIFF FLAG NO
[2024-12-01] MEDS: 0.9 % Sodium Chloride 1,000 ML 999 ML IV ×2 (15:28→15:56)
[2024-12-01 15:39] LABS: Alanine Aminotransferase 55 U/L (0-40); Albumin Level 3.2 g/dL (3.5-5.0); Alkaline Phosphatase 109 U/L (39-117); Anion Gap 11 (12-20); Aspartate Amino Transferase 65 U/L (5-37); Bilirubin Total 1.1 mg/dL (0.0-1.0); Blood Urea Nitrogen 8 mg/dL (9-16); C Reactive Protein 22.35 mg/dL (< or = 0.50); Calcium 8.6 mg/dL (8.4-10.2); Carbon Dioxide 32 mmol/L (22-29); Chloride 97 mmol/L (96-108); Creatinine Clr Calc Pharmacy 185.2; Estimated Glomerular Filt Rate > 60; Glucose Random 87 mg/dL (60-115); Potassium 3.8 mmol/L (3.3-5.1); Sodium 136 mmol/L (135-145); Total Protein 7.1 g/dL (6.5-8.0)
[2024-12-01 15:40] LABS: Lactic Acid 0.7 mmol/L (0.5-2.0)
[2024-12-01 15:46] LABS: Basophils Percent Auto 0.3 % (0-2); Eosinophils Absolute Auto 0.1 X10*3/uL (0.0-0.4); Eosinophils Percent Auto 1.8 % (0-4); Hematocrit 32.3 % (42.0-52.0); Hemoglobin 11.2 g/dl (14.0-18.0); Imm Gran Abs Auto 0.09 X10*3/uL (0.00-0.03); Imm Gran Pct Auto 1.3 % (0.0-0.4); Lymphocytes Absolute Auto 1.6 X10*3/uL (1.2-4.9); Lymphocytes Percent Auto 23.7 % (20-40); Mean Corpuscular HGB Conc 34.7 g/dl (31.0-36.0); Mean Corpuscular Hemoglobin 31.7 pg (27.0-33.0); Mean Corpuscular Volume 91.5 fL (80.0-98.0); Mean Platelet Volume 11.8 fL (9.4-12.4); Monocytes Absolute Auto 0.6 X10*3/uL (0.1-1.2); Monocytes Percent Auto 9.1 % (2-11); Neutrophils Absolute Auto 4.3 x10*3/uL (2.0-8.3); Neutrophils Percent Auto 63.8 % (45-73); Platelet Count 123 X10*3/uL (160-400); Red Blood Count 3.53 X10*6/uL (4.60-5.80); Red Cell Distribution Width 14.2 % (11.0-16.0); White Blood Count 6.7 X10*3/uL (4.8-10.8)
[2024-12-01] MEDS: Piperacillin Sodium/Tazobactam 3.375 GM in 0.9 % Sodium Chloride 50 ML IV ×2 (15:49→21:48)
[2024-12-01 16:00] VITALS: BP 99/63; PULSE 87; RESP 16; TEMP 36.6; O2SAT 96
[2024-12-01] MEDS: vancomycin/NS 2,000 MG/500 ML PLAST..BAG 250 MG IV (16:04)
--- NOTE | 2024-12-01 16:09 | PM.IMHP ---
History of Present Illness Date of Service: 12/01/24 Chief Complaint: CEllulitis A 34 years old male with PMH of opiates dependence, schizophrenia, neuropathy, Hx IVDU among others presenting to ED with lower extremities wounds. The patient reports left foot pain, swelling and warmth up to his ankle and Right big toe swelling and pus formation along with right hip pain. No chest pain, palpitations, SOB, nausea, vomiting, diarrhea or urinary symptoms. He was started on oral antibiotics yesterday but feels worse pain and swelling today. he is saying that walking is very painful. In ED found to have normal WBCs and KFT. mild transaminitis with elevated CRP. Images of foot showing no acute findings but swelling in left forefoot. Hip XR concerning for bilateral Avascular necrosis femoral head. Admitted for further work up and treatment. Review of Systems Review of Systems: No fever, chills or weakness No chest pain, palpitation No shortness of breath or coughing No abdominal pain, nausea or vomiting No urinary symptoms bilateral lower extrmities wounds [facility] Medical History Routine medical exam Cellulitis of great toe, left Peripheral neuropathy History of intravenous drug abuse Opiate dependence Social History Household Members: None Household Members Other:: MOM Housing: Apartment Do you presently have visiting nurse or other home services: No Unable to assess alcohol history related to: Refusing to respond 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 If so, by whom?: No Do you feel safe in your current relationship?: No Current Relationship Is there a partner from a previous relationship who is making you feel unsafe now?: No Are you made to feel afraid or neglected: No Advance Directives: No Advance Directives Information Provided: No Do you have a plan to hurt others: No Plan Recently lost weight without trying: No How much weight loss: Not applicable Eating poorly because of decreased appetite: No Nutrition screen score: 0 Nutrition Risks: No Nutritional Risk Poor oral hygiene: No service: No Sexual orientation: Straight/Heterosexual Meds Allergies Allergy/AdvReac Type Severity Reaction Status Date / Time haloperidol [From Haldol] AdvReac Severe tongue Verified 12/01/24 12:05 swelling Active Medications: Current Medications Vancomycin HCl (Vancomycin/Ns) 2,000 mg in 500 mls @ 250 mls/hr IV ONCE ONE Stop: 12/01/24 17:44 Last Admin: 12/01/24 16:04 Dose: 250 mls/hr Sodium Chloride (Ns) 1,000 mls @ 999 mls/hr IV .Q1H1M ARISTIDES Stop: 12/01/24 17:00 Last Admin: 12/01/24 15:56 Dose: 999 mls/hr Home Medications ?Medication ?Instructions ?Recorded ?Confirmed ?Last Taken ?Type acetaminophen 325 mg tablet 650 mg PO Q6H PRN Pain, Mild 12/01/24 12/01/24 Unknown History amoxicillin 875 mg-potassium 1 tab PO BID 12/01/24 12/01/24 Unknown History clavulanate 125 mg tablet clonazepam 1 mg tablet 1 mg PO BEDTIME 12/01/24 12/01/24 Unknown History clonazepam 1 mg tablet 1 mg PO BID PRN Anxiety 12/01/24 12/01/24 Unknown History clonazepam 1 mg tablet 1 mg PO Q6H PRN Anxiety 12/01/24 12/01/24 Unknown History clonazepam 2 mg tablet 2 mg PO BID PRN Anxiety 12/01/24 12/01/24 Unknown History dextroamphetamine-amphetamine ER 5 5 mg PO DAILY 12/01/24 12/01/24 Unknown History mg 24hr capsule,extend release (Adderall XR) fluphenazine HCl 5 mg tablet 15 mg PO BID 12/01/24 12/01/24 Unknown History gabapentin 300 mg capsule 300 mg PO TID 12/01/24 12/01/24 Unknown History gabapentin 400 mg capsule 400 mg PO TID 12/01/24 12/01/24 Unknown History melatonin 3 mg tablet 3 mg PO BEDTIME 12/01/24 12/01/24 Unknown History melatonin 3 mg tablet 3 mg PO BEDTIME PRN Insomnia 12/01/24 12/01/24 Unknown History methadone 10 mg/mL oral 170 mg PO DAILY 12/01/24 12/01/24 Unknown History concentrate (Methadose) multivitamin 1 tab PO DAILY 12/01/24 12/01/24 Unknown History nicotine (polacrilex) 2 mg gum 4 mg buccal Q2H PRN Smoking 12/01/24 12/01/24 Unknown History Cessation nicotine 21 mg/24 hr daily 1 patch transdermal DAILY 12/01/24 12/01/24 Unknown History transdermal patch olanzapine 20 mg tablet 20 mg PO BEDTIME 12/01/24 12/01/24 Unknown History olanzapine 5 mg tablet 5 mg PO BEDTIME PRN Psychosis 12/01/24 12/01/24 Unknown History quetiapine 50 mg tablet 50 mg PO BEDTIME PRN Sleep 12/01/24 12/01/24 Unknown History Physical Exam Vital Signs and Narrative: Vital Signs: Last Vital Signs Temp 97.9 F 12/01/24 16:00 Pulse 87 12/01/24 16:00 Resp 16 12/01/24 16:00 BP 99/63 12/01/24 16:00 Pulse Ox 96 12/01/24 16:00 O2 Del Method Room Air 12/01/24 16:00 BMI result Body Mass Index 23.2 Const: Other: Constitutional : Awake, interactive, not in distress Neck : Normal inspection, Supple Cardiovascular : RRR, no JVP, no lower extremity edema Respiratory : good bilateral air entry, no crackles, wheezes or rhonchi Gastrointestinal: soft, lax, Normal bowel sounds, Non tender Skin : Warm, Dry, LLE erythema and mild tenderness in dorsal foot with open wound in the lower medial side of the big toe going deep and producing pus, Right big toe ulcer with surrounding erythema Neurological : Alert & oriented x3, No focal deficit Results Labs 12/01/24 13:04 12/01/24 13:04 Labs: Laboratory Results - last 24 hr 12/01/24 13:04 MCV 91.5 MCH 31.7 MCHC 34.7 RDW 14.2 Plt Count 123 L D MPV 11.8 Immature Gran % (Auto) 1.3 H Neut % (Auto) 63.8 Lymph % (Auto) 23.7 [place] % (Auto) 9.1 Eos % (Auto) 1.8 Baso % (Auto) 0.3 Lymph # (Auto) 1.6 [place] # (Auto) 0.6 Eos # (Auto) 0.1 Baso # (Auto) 0.0 Abs Immat Gran (auto) 0.09 H Absolute Neuts (auto) 4.3 Absolute Nucleated RBC 0.000 Nucleated RBC % (auto) 0.0 Anion Gap 11 L Estim Creat Clear Calc 185.2 Estimated GFR > 60 Random Glucose 87 Lactic Acid 0.7 Calcium 8.6 Total Bilirubin 1.1 H AST 65 H ALT 55 H Alkaline Phosphatase 109 C-Reactive Protein 22.35 H Total Protein 7.1 Albumin 3.2 L Urine Color Yellow Urine Appearance Clear Urine pH 6.5 Ur Specific [place] <= 1.005 Urine Protein Negative Urine Glucose (UA) Negative Urine Ketones Negative Urine Blood Negative Urine Nitrite Negative Ur Leukocyte Esterase Negative Urine Opiates Screen Not Detected Ur Buprenorphine Scrn Not Detected Ur Oxycodone Screen Not Detected Urine Methadone Screen Positive H Urine Fentanyl Screen Not Detected Ur Barbiturates Screen Not Detected Ur Phencyclidine Scrn Not Detected Ur Amphetamines Screen Not Detected U Benzodiazepines Scrn Not Detected Urine Cocaine Screen Not Detected U Marijuana (THC) Screen Not Detected Imaging Radiologist's Impressions: Impressions Foot X-Ray 12/01/24 13:20 IMPRESSION: 1. No acute osseous abnormalities in either foot. 2. Soft tissue swelling of the dorsal forefoot left greater than right. Electronically signed by: Fabio Nation MD 12/01/2024 02:22 PM EDT Tibia/Fibula X-Ray 12/01/24 13:20 IMPRESSION: Normal bilateral tibia and fibula. Electronically signed by: Fabio Nation MD 12/01/2024 02:17 PM EDT Hip X-Ray 12/01/24 13:42 IMPRESSION: Suggestion of AVN of the bilateral femoral heads without subchondral collapse. Recommend MRI for confirmation. Otherwise normal bilateral and pelvic x-rays. Electronically signed by: Fabio Nation MD 12/01/2024 02:14 PM EDT Assessment and Plan (1) Cellulitis of foot, right: Status: Acute (2) Schizophrenia, paranoid, chronic with acute exacerbation: Status: Acute (3) Peripheral neuropathy: Status: Acute (4) Opiate dependence: Status: Acute Plan A 34 years old male with PMH of opiates dependence, schizophrenia, neuropathy, Hx IVDU among others presenting to ED with lower extremities wounds. Cellulitis Not septic PEnding cultures IV VAncomycin and Zosyn for now MR of Foot pending to R\O OM follow Vanco trough Opioid dependence on MEthadone , continue Peripheral neuropathy Gabapentin Hx Schizophrenia resume home meds; Olanzapine DVT PPx Lovenox The patient will need 2 oven[facility] hopsital stay for treatment of lower extremity cellulitis with concern of Osteomyelitis pending MRI and specialist evaluation. Quality Stroke Does the patient have a stroke diagnosis?: No VTE Prior VTE?: No VTE Risk Level:: Medical - moderate - high VTE Device Contraindication: Treatment Not Indicated VTE Drug Contraindication: N/A - Med Ordered
--- NOTE | 2024-12-01 16:42 | PHA.PROG ---
Admission Date/Time: December 01, 2024 16:06 Indication: Skin Weight in k.8 kg Serum Creatinine - Last 168 Hours 12/01/24 13:04 Creatinine 0.65 Estimated CrCl and GFR - Last 168 Hours 12/01/24 13:04 Estim Creat Clear Calc 185.2 Estimated GFR > 60 Vancomycin Loading Dose: 2,000mg Current Vancomycin Dosing Regimen: 750mg q8h Vancomycin Monitoring using AUC goal of 400 - 600 range with trough as surrogate marker: 417, predicted trough 13.4 Date and Time for next Vancomycin Level to be drawn: 12/02 @ 1400 Pharmacist Comments on Vancomycin Plan: Vancomycin dosing will take advantage of [employer] as a clinical decision support tool that uses Bayesian modeling to calculate individual patient's pharmacokinetic parameters and forecast the patient's drug concentration time course with the target goal AUC 24 range of 400 - 600 mg/L/hr.
[2024-12-01] MEDS: clonazePAM 1 MG TABLET PO ×2 (16:44→20:01)
[2024-12-01] MEDS: Gabapentin 300 MG CAPSULE PO ×2 (16:44→20:02)
[2024-12-01 17:00] LABS: Erythrocyte Sedimentation Rate 77 MM/HR (0-15)
--- NOTE | 2024-12-01 18:05 | PHA.MEDREC ---
Addendum entered by Keiry Osborne RPh 12/01/24 18:17: [facility] reviewed Original Note: Pharmacy Consult ? Medication Reconciliation Pharmacy has completed the medication reconciliation. Utilized list from [place] to confirm med list.
[2024-12-01 18:33] VITALS: BMI 23.1
[2024-12-01 18:43] VITALS: BP 125/61; PULSE 107; RESP 18; TEMP 36.8; O2SAT 95
[2024-12-01] MEDS: oxyCODONE HCl Immed Release 5 MG TABLET PO (18:46)
[2024-12-01] MEDS: Gabapentin 400 MG CAPSULE PO (20:02)
[2024-12-01] MEDS: Nicotine Polacrilex 2 MG GUM 4 MG BUCCAL ×2 (20:04→23:59)
[2024-12-01] MEDS: traZODone HCL 50 MG TABLET PO ×2 (20:04→23:13)
[2024-12-01] MEDS: Acetaminophen 325 MG TABLET 650 MG PO (20:04)
[2024-12-01] MEDS: 0.9 % Sodium Chloride Flush 3 ML SYRINGE IVFLUSH (21:56)
[2024-12-01] MEDS: vancomycin HCL 750 MG in 0.9 % Sodium Chloride 250 ML 265 MG IV (23:08)
[2024-12-02 03:52] VITALS: BP 120/72; PULSE 98; RESP 20; TEMP 36.5; O2SAT 97
[2024-12-02] MEDS: Piperacillin Sodium/Tazobactam 3.375 GM in 0.9 % Sodium Chloride 50 ML IV ×4 (03:52→22:28)
[2024-12-02] MEDS: oxyCODONE HCl Immed Release 5 MG TABLET PO ×4 (03:55→23:02)
[2024-12-02] MEDS: clonazePAM 1 MG TABLET 2 MG PO (05:30)
[2024-12-02 08:00] VITALS: BP 100/60; PULSE 84; RESP 18; TEMP 36.7; O2SAT 96
[2024-12-02] MEDS: methADONE HCl 20 MG/2 ML ORAL.CONC 170 MG PO (08:06)
[2024-12-02] MEDS: vancomycin HCL 750 MG in 0.9 % Sodium Chloride 250 ML 265 MG IV ×3 (08:10→23:58)
[2024-12-02] MEDS: Gabapentin 300 MG CAPSULE PO (08:11)
[2024-12-02] MEDS: Gabapentin 400 MG CAPSULE PO ×3 (08:11→21:43)
[2024-12-02] MEDS: Dextroamphetamine/Amphetamine XR 5 MG CAP.ER.24H PO (08:11)
[2024-12-02] MEDS: Multivitamin TABLET 1 TAB PO (08:11)
[2024-12-02] MEDS: 0.9 % Sodium Chloride Flush 3 ML SYRINGE IVFLUSH ×2 (08:12→15:53)
[2024-12-02] MEDS: clonazePAM 1 MG TABLET PO ×4 (08:21→22:29)
[2024-12-02] MEDS: Nicotine Polacrilex 2 MG GUM 4 MG BUCCAL ×5 (08:21→23:57)
--- NOTE | 2024-12-02 09:30 | MHC.CM.PN ---
Addendum entered by Yanely Mohr 12/02/24 12:06: Patient had agreed to document a HCP. He changed his mind. He does not want a HCP. The form was ripped up. Original Note: Patient admitted with Cellulitis and OM and Avascular Necrosis work up. He lives with his Mother. He is independent with all functional mobility. No DME OTP N Lorena Saleh [facility] ID and Surgical consults ordered. Patient does not have a PCP. [place] [facility] [place]. DP TBD by ID and Surgical consult outcome. AMP vs LT IV ABX in a facility.
--- NOTE | 2024-12-02 09:38 | HO.WOUND ---
Wound Consult: Initial 34yr old?[place] [facility] - See progress notes and H&P for detailed history.? Wound consult placed for Left Great Toe wound.? Patient agreeable to assessment and photo documentation.? 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 Left Anterior foot Left Plantar side of hreat toe and foot Right Heel - Scabs noted to the medial side - swelling throughout foot Etiology: ?Neuropatcvi wound ?Present on Admission Measurements: 6cm x 3cm x 1.5cm Wound Bed: full thickness tissue loss - moist lifting macerated layer Drainage / Odor: Serosang noted on dressing no purulence noted at the time of my assessment or on dressing Edges: ? unattached Natalie wound: ?red erythema, swelling Pain: painful at times Goals of Treatment: ? Elevate lower leg - off load pressure limit walking and durafiber for moisture management Recommendations: 1. Provide adequate and supplemental nutrition.? 2. When applicable maintain blood glucose levels per Providers order. Left Foot - Elevate on pillows, limit walking on left foot. Cleanse with NS moist gauze and irrigate. Lightly pack with Durafiber AG, Cover with Dry gauze, ABD pad and wrap. May finish with dada wrap to aid in swelling reduction. Change every day. Re-consult wound care Nurse for wound deterioration or wound changes.
--- NOTE | 2024-12-02 10:31 | P.PNIM_ITS ---
Subjective Subjective Date of Service: 12/02/24 Interval History: seen and evaluated looks sedated but answer questions and follow commands denies any fever or chills but reporting pain in LEs Physical Exam 2 Vital Signs: Vital Signs: Last Vital Signs Temp 98.1 F 12/02/24 08:00 Pulse 84 12/02/24 08:00 Resp 18 12/02/24 08:00 BP 100/60 12/02/24 08:00 Pulse Ox 96 12/02/24 08:00 O2 Del Method Room Air 12/02/24 08:00 BMI result Body Mass Index 23.1 Const: Other: Constitutional : sleepy, looks sedated, not in distress Neck : Normal inspection, Supple Cardiovascular : RRR, no JVP, no lower extremity edema Respiratory : good bilateral air entry, no crackles, wheezes or rhonchi Gastrointestinal: soft, lax, Normal bowel sounds, Non tender Skin : Warm, Dry, LLE erythema and mild tenderness in dorsal foot with open wound in the lower medial side of the big toe going deep and producing pus, Right big toe ulcer with surrounding erythema Neurological : Alert with stimulation & oriented x3, No focal deficit Objective Data Active Medications Acetaminophen (Acetaminophen 325 Mg Tablet) 650 mg PO Q6H PRN PRN Reason: Pain, Mild 1-3,fever,headache Last Admin: 12/01/24 20:04 Dose: 650 mg Documented By: GOYO Amphetamine/Dextroamphetamine (Dextroamphetamine/Amphetamine Xr 5 Mg Cap.Er.24h) 5 mg PO DAILY [facility] Last Admin: 12/02/24 08:11 Dose: 5 mg Documented By: UNRULY Calcium Carbonate (Calcium Carbonate 750 Mg Tab.Chew) 750 mg PO Q4H PRN PRN Reason: Heartburn Clonazepam (Clonazepam 1 Mg Tablet) 1 mg PO BID PRN PRN Reason: Anxiety Clonazepam (Clonazepam 1 Mg Tablet) 1 mg PO Q6H PRN PRN Reason: Anxiety Last Admin: 12/02/24 08:21 Dose: 1 mg Documented By: UNRULY Clonazepam (Clonazepam 1 Mg Tablet) 1 mg PO BEDTIME [facility] Last Admin: 12/01/24 20:01 Dose: 1 mg Documented By: GOYO Clonazepam (Clonazepam 1 Mg Tablet) 2 mg PO BID PRN PRN Reason: Anxiety Last Admin: 12/02/24 05:30 Dose: 2 mg Documented By: GOYO Enoxaparin Sodium (Enoxaparin Sodium 40 Mg/0.4 Ml Syringe) 40 mg SUBCUT Q24H [facility] Last Admin: 12/01/24 16:45 Dose: Not Given Documented By: ALLAN Non-Admin Reason: Patient Refused Fluphenazine HCl (Fluphenazine Hcl 5 Mg Tablet) 15 mg PO BID [facility] Last Admin: 12/02/24 08:23 Dose: Not Given Documented By: UNRULY Non-Admin Reason: Patient Refused Gabapentin (Gabapentin 300 Mg Capsule) 300 mg PO TID [facility] Last Admin: 12/02/24 08:11 Dose: 300 mg Documented By: UNRULY Gabapentin (Gabapentin 400 Mg Capsule) 400 mg PO TID [facility] Last Admin: 12/02/24 08:11 Dose: 400 mg Documented By: UNRULY Piperacillin Sod/Tazobactam (Sod 3.375 gm/ Sodium Chloride) 50 mls @ 100 mls/hr IV Q6H [facility] Last Infusion: 12/02/24 04:28 Dose: Infused Documented By: GOYO Vancomycin HCl 750 mg/ Sodium (Chloride) 265 mls @ 265 mls/hr IV Q8H [facility] Last Infusion: 12/02/24 09:24 Dose: Infused Documented By: UNRULY Magnesium Hydroxide (Milk Of Magnesia 30 Ml Oral.Susp) 30 ml PO DAILY PRN PRN Reason: Constipation Melatonin (Melatonin 3 Mg Tablet) 6 mg PO BEDTIME PRN PRN Reason: Insomnia Methadone HCl (Methadone Hcl 20 Mg/2 Ml Oral.Conc) 170 mg PO DAILY [facility] Last Admin: 12/02/24 08:06 Dose: 170 mg Documented By: UNRULY Co-signed By: MAMIE Multivitamins/Vitamin C (Multivitamin Tablet) 1 tab PO DAILY [facility] Last Admin: 12/02/24 08:11 Dose: 1 tab Documented By: UNRULY Nicotine (Nicotine 21 Mg Patch.Td24) 21 mg TRANSDERMA DAILY [facility] Last Admin: 12/02/24 08:23 Dose: Not Given Documented By: UNRULY Non-Admin Reason: Patient Refused Nicotine Polacrilex (Nicotine Polacrilex 2 Mg Gum) 4 mg BUCCAL Q2H PRN PRN Reason: Smoking Cessation Last Admin: 12/02/24 08:21 Dose: 4 mg Documented By: UNRULY Olanzapine (Olanzapine 5 Mg Tablet) 5 mg PO BEDTIME PRN PRN Reason: Psychosis Olanzapine (Olanzapine 10 Mg Tablet) 20 mg PO BEDTIME [facility] Last Admin: 12/01/24 21:54 Dose: Not Given Documented By: GOYO Non-Admin Reason: Patient Refused Ondansetron HCl (Ondansetron Hcl 4 Mg/2 Ml Vial) 4 mg IVPUSH Q8H PRN PRN Reason: Nausea and Vomiting Oxycodone HCl (Oxycodone Hcl Immed Release 5 Mg Tablet) 5 mg PO Q6H PRN PRN Reason: Pain, Moderate(Pain Scale 4-6) Last Admin: 12/02/24 10:29 Dose: 5 mg Documented By: UNRULY Pharmacy Consult (Consult Rx Vancomycin Dosing) 1 each MISCELLANE DAILY PRN PRN Reason: Consult order Quetiapine Fumarate (Quetiapine Fumarate 50 Mg Tablet) 50 mg PO BEDTIME PRN PRN Reason: Sleep Sodium Chloride (0.9 % Sodium Chloride Flush 3 Ml Syringe) 3 ml IVFLUSH QSHIFT [facility] Last Admin: 12/02/24 08:12 Dose: 3 ml Documented By: UNRULY Trazodone HCl (Trazodone Hcl 50 Mg Tablet) 50 mg PO BEDTIME MRX1 PRN PRN Reason: Insomnia Last Admin: 12/01/24 23:13 Dose: 50 mg Documented By: GOYO Labs 12/01/24 13:04 12/01/24 13:04 Labs: Laboratory Results - last 24 hr 12/01/24 13:04 MCV 91.5 MCH 31.7 MCHC 34.7 RDW 14.2 Plt Count 123 L D MPV 11.8 Immature Gran % (Auto) 1.3 H Neut % (Auto) 63.8 Lymph % (Auto) 23.7 [place] % (Auto) 9.1 Eos % (Auto) 1.8 Baso % (Auto) 0.3 Lymph # (Auto) 1.6 [place] # (Auto) 0.6 Eos # (Auto) 0.1 Baso # (Auto) 0.0 Abs Immat Gran (auto) 0.09 H Absolute Neuts (auto) 4.3 Absolute Nucleated RBC 0.000 Nucleated RBC % (auto) 0.0 ESR 77 H Anion Gap 11 L Estim Creat Clear Calc 185.2 Estimated GFR > 60 Random Glucose 87 Lactic Acid 0.7 Calcium 8.6 Total Bilirubin 1.1 H AST 65 H ALT 55 H Alkaline Phosphatase 109 C-Reactive Protein 22.35 H Total Protein 7.1 Albumin 3.2 L Urine Color Yellow Urine Appearance Clear Urine pH 6.5 Ur Specific [place] <= 1.005 Urine Protein Negative Urine Glucose (UA) Negative Urine Ketones Negative Urine Blood Negative Urine Nitrite Negative Ur Leukocyte Esterase Negative Urine Opiates Screen Not Detected Ur Buprenorphine Scrn Not Detected Ur Oxycodone Screen Not Detected Urine Methadone Screen Positive H Urine Fentanyl Screen Not Detected Ur Barbiturates Screen Not Detected Ur Phencyclidine Scrn Not Detected Ur Amphetamines Screen Not Detected U Benzodiazepines Scrn Not Detected Urine Cocaine Screen Not Detected U Marijuana (THC) Screen Not Detected Assessment and Plan (1) Cellulitis of foot, right: Status: Acute (2) Peripheral neuropathy: Status: Acute (3) Opiate dependence: Status: Acute (4) Foot osteomyelitis, left: Status: Acute Plan A 34 years old male with PMH of opiates dependence, schizophrenia, neuropathy, Hx IVDU among others presenting to ED with lower extremities wounds. Cellulitis of LLE with acute on chronic osteomyelitis of big toe Prev images concerning for chronic Osteomyelitis on distal phalanx, patient refused amputation then Not septic PEnding cultures IV VAncomycin and Zosyn for now MR of Foot pending to R\O OM ID and surgery consults follow Vanco trough Acute Toxic encephalopathy related to polypharmacy Decrease Gabapentin Decrease Lorazepam monitor other meds and his mental status, recurrent redirection Opioid dependence on MEthadone , continue Peripheral neuropathy Gabapentin Hx Schizophrenia resume Olanzapine DVT PPx Lovenox The patient will need overnight hopsital stay for treatment of lower extremity cellulitis with concern of Osteomyelitis pending MRI and specialist evaluation. Quality Stroke Does the patient have a stroke diagnosis?: No VTE Prior VTE?: No VTE Risk Level:: Medical - moderate - high VTE Device Contraindication: Treatment Not Indicated VTE Drug Contraindication: N/A - Med Ordered
--- NOTE | 2024-12-02 13:36 | PM.CNGS ---
History of Present Illness Consult details Consult date: 12/02/24 <Saray Edwards PA-C - Last Filed: 12/02/24 14:01> Requesting physician: Phill Vidal <Saray Edwards PA-C - Last Filed: 12/02/24 14:01> Narrative: 34 years old male with PMH of opiates dependence, schizophrenia, neuropathy, Hx IVDU who presented to the ED from [place] for evaluation of his left foot. Patient reports left toe and foot pain along with swelling and worsening redness. He is a poor historian and denies prior open wounds to his left first toe however review of chart shows history of wounds on the feet bilaterally with associated cellulitis. Had left foot MRI during admission in 08/26 that showed osteomyelitis of left first phalanx. He is unsure if he received antibiotics for this. Work up in the ED included CBC, BMP were WNL, CRP was elevated. Imaging of bilateral feet showed no acute osseous abnormalities in either foot, soft tissue swelling of the dorsal forefoot left greater than right. <Saray Edwards PA-C - Last Filed: 12/02/24 14:01> Review of Systems Review of Systems: Yes all other systems are reviewed and are negative <Saray Edwards PA-C - Last Filed: 12/02/24 14:01> [facility] Past Medical History Medical History: Medical History (Updated 12/02/24 @ 13:55 by Saray Edwards PA-C) Foot osteomyelitis, left Routine medical exam Cellulitis of great toe, left Peripheral neuropathy History of intravenous drug abuse Opiate dependence <Sraay Edwards PA-C - Last Filed: 12/02/24 14:01> Social History Social History: Social History Household Members: None Household Members Other:: MOM Housing: Apartment Do you presently have visiting nurse or other home services: No Unable to assess alcohol history related to: Refusing to respond 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 If so, by whom?: No Do you feel safe in your current relationship?: No Current Relationship Is there a partner from a previous relationship who is making you feel unsafe now?: No Are you made to feel afraid or neglected: No Advance Directives: No Advance Directives Information Provided: No Do you have a plan to hurt others: No Plan Recently lost weight without trying: No How much weight loss: Not applicable Eating poorly because of decreased appetite: No Nutrition screen score: 0 Nutrition Risks: No Nutritional Risk Poor oral hygiene: No service: No Sexual orientation: Straight/Heterosexual <Saray Edwards PA-C - Last Filed: 12/02/24 14:01> Meds Allergies/Adverse reactions: Allergies Allergy/AdvReac Type Severity Reaction Status Date / Time haloperidol [From Haldol] AdvReac Severe tongue Verified 12/01/24 12:05 swelling <Saray Edwards PA-C - Last Filed: 12/02/24 14:01> Active Medications: Current Medications Acetaminophen (Acetaminophen 325 Mg Tablet) 650 mg PO Q6H PRN PRN Reason: Pain, Mild 1-3,fever,headache Last Admin: 12/01/24 20:04 Dose: 650 mg Amphetamine/Dextroamphetamine (Dextroamphetamine/Amphetamine Xr 5 Mg Cap.Er.24h) 5 mg PO DAILY [facility] Last Admin: 12/02/24 08:11 Dose: 5 mg Calcium Carbonate (Calcium Carbonate 750 Mg Tab.Chew) 750 mg PO Q4H PRN PRN Reason: Heartburn Clonazepam (Clonazepam 1 Mg Tablet) 1 mg PO BEDTIME [facility] Last Admin: 12/01/24 20:01 Dose: 1 mg Clonazepam (Clonazepam 1 Mg Tablet) 1 mg PO Q4H PRN PRN Reason: Anxiety Enoxaparin Sodium (Enoxaparin Sodium 40 Mg/0.4 Ml Syringe) 40 mg SUBCUT Q24H [facility] Last Admin: 12/01/24 16:45 Dose: Not Given Fluphenazine HCl (Fluphenazine Hcl 5 Mg Tablet) 15 mg PO BID [facility] Last Admin: 12/02/24 08:23 Dose: Not Given Gabapentin (Gabapentin 300 Mg Capsule) 300 mg PO TID [facility] Last Admin: 12/02/24 08:11 Dose: 300 mg Gabapentin (Gabapentin 400 Mg Capsule) 400 mg PO TID [facility] Last Admin: 12/02/24 08:11 Dose: 400 mg Piperacillin Sod/Tazobactam (Sod 3.375 gm/ Sodium Chloride) 50 mls @ 100 mls/hr IV Q6H [facility] Last Infusion: 12/02/24 11:19 Dose: Infused Vancomycin HCl 750 mg/ Sodium (Chloride) 265 mls @ 265 mls/hr IV Q8H [facility] Last Infusion: 12/02/24 09:24 Dose: Infused Magnesium Hydroxide (Milk Of Magnesia 30 Ml Oral.Susp) 30 ml PO DAILY PRN PRN Reason: Constipation Melatonin (Melatonin 3 Mg Tablet) 6 mg PO BEDTIME PRN PRN Reason: Insomnia Methadone HCl (Methadone Hcl 20 Mg/2 Ml Oral.Conc) 170 mg PO DAILY [facility] Last Admin: 12/02/24 08:06 Dose: 170 mg Multivitamins/Vitamin C (Multivitamin Tablet) 1 tab PO DAILY [facility] Last Admin: 12/02/24 08:11 Dose: 1 tab Nicotine (Nicotine 21 Mg Patch.Td24) 21 mg TRANSDERMA DAILY [facility] Last Admin: 12/02/24 08:23 Dose: Not Given Nicotine Polacrilex (Nicotine Polacrilex 2 Mg Gum) 4 mg BUCCAL Q2H PRN PRN Reason: Smoking Cessation Last Admin: 12/02/24 08:21 Dose: 4 mg Olanzapine (Olanzapine 5 Mg Tablet) 5 mg PO BEDTIME PRN PRN Reason: Psychosis Olanzapine (Olanzapine 10 Mg Tablet) 20 mg PO BEDTIME [facility] Last Admin: 12/01/24 21:54 Dose: Not Given Ondansetron HCl (Ondansetron Hcl 4 Mg/2 Ml Vial) 4 mg IVPUSH Q8H PRN PRN Reason: Nausea and Vomiting Oxycodone HCl (Oxycodone Hcl Immed Release 5 Mg Tablet) 5 mg PO Q6H PRN PRN Reason: Pain, Moderate(Pain Scale 4-6) Last Admin: 12/02/24 10:29 Dose: 5 mg Pharmacy Consult (Consult Rx Vancomycin Dosing) 1 each MISCELLANE DAILY PRN PRN Reason: Consult order Quetiapine Fumarate (Quetiapine Fumarate 50 Mg Tablet) 50 mg PO BEDTIME PRN PRN Reason: Sleep Sodium Chloride (0.9 % Sodium Chloride Flush 3 Ml Syringe) 3 ml IVFLUSH QSHIFT [facility] Last Admin: 12/02/24 08:12 Dose: 3 ml Trazodone HCl (Trazodone Hcl 50 Mg Tablet) 50 mg PO BEDTIME MRX1 PRN PRN Reason: Insomnia Last Admin: 12/01/24 23:13 Dose: 50 mg <Saray Edwards PA-C - Last Filed: 12/02/24 14:01> Home medications: Home Medications ?Medication ?Instructions ?Recorded ?Confirmed ?Last Taken ?Type acetaminophen 325 mg tablet 650 mg PO Q6H PRN Pain, Mild 12/01/24 12/01/24 Unknown History amoxicillin 875 mg-potassium 1 tab PO BID 12/01/24 12/01/24 Unknown History clavulanate 125 mg tablet clonazepam 1 mg tablet 1 mg PO BEDTIME 12/01/24 12/01/24 Unknown History clonazepam 1 mg tablet 1 mg PO BID PRN Anxiety 12/01/24 12/01/24 Unknown History clonazepam 1 mg tablet 1 mg PO Q6H PRN Anxiety 12/01/24 12/01/24 Unknown History clonazepam 2 mg tablet 2 mg PO BID PRN Anxiety 12/01/24 12/01/24 Unknown History dextroamphetamine-amphetamine ER 5 5 mg PO DAILY 12/01/24 12/01/24 Unknown History mg 24hr capsule,extend release (Adderall XR) fluphenazine HCl 5 mg tablet 15 mg PO BID 12/01/24 12/01/24 Unknown History gabapentin 300 mg capsule 300 mg PO TID 12/01/24 12/01/24 Unknown History gabapentin 400 mg capsule 400 mg PO TID 12/01/24 12/01/24 Unknown History melatonin 3 mg tablet 3 mg PO BEDTIME 12/01/24 12/01/24 Unknown History melatonin 3 mg tablet 3 mg PO BEDTIME PRN Insomnia 12/01/24 12/01/24 Unknown History methadone 10 mg/mL oral 170 mg PO DAILY 12/01/24 12/01/24 Unknown History concentrate (Methadose) multivitamin 1 tab PO DAILY 12/01/24 12/01/24 Unknown History nicotine (polacrilex) 2 mg gum 4 mg buccal Q2H PRN Smoking 12/01/24 12/01/24 Unknown History Cessation nicotine 21 mg/24 hr daily 1 patch transdermal DAILY 12/01/24 12/01/24 Unknown History transdermal patch olanzapine 20 mg tablet 20 mg PO BEDTIME 12/01/24 12/01/24 Unknown History olanzapine 5 mg tablet 5 mg PO BEDTIME PRN Psychosis 12/01/24 12/01/24 Unknown History quetiapine 50 mg tablet 50 mg PO BEDTIME PRN Sleep 12/01/24 12/01/24 Unknown History <JORY Downs Last Filed: 12/02/24 14:01> Physical Exam Vital Signs: Vital Signs: Last Vital Signs Temp 98.1 F 12/02/24 08:00 Pulse 84 12/02/24 08:00 Resp 18 12/02/24 08:00 BP 100/60 12/02/24 08:00 Pulse Ox 96 12/02/24 08:00 O2 Del Method Room Air 12/02/24 08:00 BMI result Body Mass Index 23.1 <JORY Downs Last Filed: 12/02/24 14:01> Const: General: comfortable, no acute distress and alert <JORY Downs Last Filed: 12/02/24 14:01> Orientation/consciousness: patient oriented x3 <JORY Downs Last Filed: 12/02/24 14:01> Resp: Effort & Inspection: normal respiratory effort <JORY Dowsn Last Filed: 12/02/24 14:01> Neuro: General: patient oriented x3 and moves all extremities <JORY Downs Last Filed: 12/02/24 14:01> Extrem: Other: left foot- edema and erythema extending into midfoot of dorsal aspect, lateral aspect of first toe with desquamation of skin extending posteriorly into plantar aspect this was sharply excised with scissors measuring about 3cm total, no fluctuance appreciated <JORY Downs Last Filed: 12/02/24 14:01> Psych: Affect: Blunted affect present <JORY Downs Last Filed: 12/02/24 14:01> Results Labs Result diagrams: 12/01/24 13:04 12/01/24 13:04 <Saray Edwards PA-C - Last Filed: 12/02/24 14:01> Labs: Abnormal lab results 12/01/24 Range/Units 13:04 RBC 3.53 L (4.60-5.80) X10*6/uL Hgb 11.2 L (14.0-18.0) g/dl Hct 32.3 L (42.0-52.0) % Plt Count 123 L D (160-400) X10*3/uL Immature Gran % (Auto) 1.3 H (0.0-0.4) % Abs Immat Gran (auto) 0.09 H (0.00-0.03) X10*3/uL ESR 77 H (0-15) MM/HR Carbon Dioxide 32 H (22-29) mmol/L Anion Gap 11 L (12-20) BUN 8 L (9-16) mg/dL Total Bilirubin 1.1 H (0.0-1.0) mg/dL AST 65 H (5-37) U/L ALT 55 H (0-40) U/L C-Reactive Protein 22.35 H (< or = 0.50) mg/dL Albumin 3.2 L (3.5-5.0) g/dL Urine Methadone Screen Positive H (Not Detect) ng/mL Short CBC 12/01/24 Range/Units 13:04 WBC 6.7 (4.8-10.8) X10*3/uL Hgb 11.2 L (14.0-18.0) g/dl Hct 32.3 L (42.0-52.0) % Plt Count 123 L D (160-400) X10*3/uL BMP 12/01/24 13:04 Sodium 136 Potassium 3.8 Chloride 97 Carbon Dioxide 32 H BUN 8 L Creatinine 0.65 Calcium 8.6 Liver Function 12/01/24 Range/Units 13:04 Total Bilirubin 1.1 H (0.0-1.0) mg/dL AST 65 H (5-37) U/L ALT 55 H (0-40) U/L Alkaline Phosphatase 109 (39-117) U/L Albumin 3.2 L (3.5-5.0) g/dL Urine 12/01/24 Range/Units 13:04 Urine Color Yellow Urine Appearance Clear Urine pH 6.5 (5.0-9.0) Ur Specific [place] <= 1.005 (1.005-1.025) Urine Protein Negative (Neg-Trace) mg/dL Urine Glucose (UA) Negative (Negative) mg/dL All other labs normal. <Saray Edwards PA-C - Last Filed: 12/02/24 14:01> Assessment and Plan (1) Cellulitis of left foot: Status: Acute <Saray Edwards PA-C - Last Filed: 12/02/24 14:01> 34 years old male with PMH of opiates dependence, schizophrenia, neuropathy, Hx IVDU admitted for left foot cellulitis. He has a history of OM in his left first phalanx. Left foot with moderate erythema and edema, desquamation of lateral/plantar aspect of first toe, no evidence of abscess. Skin of this area was sharply debrided with scissors as above. Agree with wound care recs of silver alginate to open wound followed by dry fluffs, abd, kerlix and hemant wrap. Agree with MRI for osteo. Cont IV abx, left foot elevation was encouraged to reduce swelling. <Saray Edwards PA-C - Last Filed: 12/02/24 14:01> 34 years old male with PMH of opiates dependence, schizophrenia, neuropathy, Hx IVDU admitted for left foot cellulitis. He has a history of OM in his left first phalanx. Left foot with moderate erythema and edema, desquamation of lateral/plantar aspect of first toe, no evidence of abscess. Skin of this area was sharply debrided with scissors as above. Agree with wound care recs of silver alginate to open wound followed by dry fluffs, abd, kerlix and hemant wrap. Agree with MRI for osteo. Cont IV abx, left foot elevation was encouraged to reduce swelling. Patient is seen and agree with the above. Patient has strong dorsalis pedis pulse so vascular supplies not an issue. Some of the overlying skin debrided a little more exposing little bit of some necrotic soft tissue into the fat. We will do a wet-to-dry dressing daily for now and then can switch over to alginate as an outpatient but we will see how the deeper structures look by MRI. Agree with IV antibiotics. Foot elevation and Hemant wraps for edema. <Makenna Natarajan MD - Last Filed: 12/02/24 17:46> Procedures Date of Service Date of Service: 12/02/24 <Saray Edwards PA-C - Last Filed: 12/02/24 14:01> 12/02/24 <Makenna Natarajan MD - Last Filed: 12/02/24 17:46>
[2024-12-02 15:52] VITALS: BP 109/62; PULSE 100; RESP 18; TEMP 37.2; O2SAT 99
[2024-12-02 20:00] VITALS: BP 110/62; PULSE 97; RESP 20; TEMP 37.3; O2SAT 98
[2024-12-02] MEDS: OLANZapine 10 MG TABLET 20 MG PO (21:43)
--- NOTE | 2024-12-02 23:31 | P.CNID_ITS ---
History of Present Illness Data of Consult Service Date: 12/02/24 Requesting physician: Phill Vidal Primary Care Provider: None Physician HPI Reason for consult: bilateral foot infection He presents to hospital on a section due to lower leg wounds persisting but he tells me he is here for bilateral hip pain and trouble walking over the last week. He had OUD and takes Methadone. I had seen him08/2023 and he had left great toe OM. He declined any penitentiary IV antibiotic treatment for OM then and now. Review of Systems 2 Review of Systems: Yes all other systems are reviewed and are negative [facility] Past Medical History Medical History Foot osteomyelitis, left Routine medical exam Cellulitis of great toe, left Peripheral neuropathy History of intravenous drug abuse Opiate dependence Family History Family history: reviewed and not pertinent Social History Social History Household Members: None Household Members Other:: MOM Housing: Apartment Do you presently have visiting nurse or other home services: No Unable to assess alcohol history related to: Refusing to respond Comment: sitter at bedside at all times Patient Tobacco Use Status: Current someday Tobacco user Tobacco use type: Cigarette Cigarette Packs Per Day: 2 Cigarettes Per Day: 40.0 Years Smoked: 19 Smoked in Last 30 Days: Yes e-Cigarette/Vaping Use: Never Used Patient Interested in Nicotine Replacement: Yes Patient Given Instructions on How to Stop Smoking: No Second Hand Smoke Exposure: No Use of substances other than those prescribed or required for medical reasons: No Currently Displaying Signs/Symptoms of Drug Intoxication Withdrawal: No Have you been hit, kicked, punched, or otherwise hurt by someone within the past year? If so, by whom?: No Do you feel safe in your current relationship?: No Current Relationship Is there a partner from a previous relationship who is making you feel unsafe now?: No Are you made to feel afraid or neglected: No Advance Directives: No Advance Directives Information Provided: No Do you have a plan to hurt others: No Plan Recently lost weight without trying: No How much weight loss: Not applicable Eating poorly because of decreased appetite: No Nutrition screen score: 0 Nutrition Risks: No Nutritional Risk Poor oral hygiene: No service: No Sexual orientation: Straight/Heterosexual Meds Allergies Allergy/AdvReac Type Severity Reaction Status Date / Time haloperidol [From Haldol] AdvReac Severe tongue Verified 12/01/24 12:05 swelling Active Medications: Current Medications Acetaminophen (Acetaminophen 325 Mg Tablet) 650 mg PO Q6H PRN PRN Reason: Pain, Mild 1-3,fever,headache Last Admin: 12/01/24 20:04 Dose: 650 mg Amphetamine/Dextroamphetamine (Dextroamphetamine/Amphetamine Xr 5 Mg Cap.Er.24h) 5 mg PO DAILY [facility] Last Admin: 12/02/24 08:11 Dose: 5 mg Calcium Carbonate (Calcium Carbonate 750 Mg Tab.Chew) 750 mg PO Q4H PRN PRN Reason: Heartburn Clonazepam (Clonazepam 1 Mg Tablet) 1 mg PO BEDTIME [facility] Last Admin: 12/02/24 22:29 Dose: 1 mg Clonazepam (Clonazepam 1 Mg Tablet) 1 mg PO Q4H PRN PRN Reason: Anxiety Last Admin: 12/02/24 19:54 Dose: 1 mg Enoxaparin Sodium (Enoxaparin Sodium 40 Mg/0.4 Ml Syringe) 40 mg SUBCUT Q24H [facility] Last Admin: 12/02/24 16:33 Dose: Not Given Fluphenazine HCl (Fluphenazine Hcl 5 Mg Tablet) 15 mg PO BID [facility] Last Admin: 12/02/24 21:46 Dose: Not Given Gabapentin (Gabapentin 300 Mg Capsule) 300 mg PO TID [facility] Last Admin: 12/02/24 08:11 Dose: 300 mg Gabapentin (Gabapentin 400 Mg Capsule) 400 mg PO TID [facility] Last Admin: 12/02/24 21:43 Dose: 400 mg Piperacillin Sod/Tazobactam (Sod 3.375 gm/ Sodium Chloride) 50 mls @ 100 mls/hr IV Q6H [facility] Last Infusion: 12/02/24 22:58 Dose: Infused Vancomycin HCl 750 mg/ Sodium (Chloride) 265 mls @ 265 mls/hr IV Q8H [facility] Last Infusion: 12/02/24 17:31 Dose: Infused Magnesium Hydroxide (Milk Of Magnesia 30 Ml Oral.Susp) 30 ml PO DAILY PRN PRN Reason: Constipation Melatonin (Melatonin 3 Mg Tablet) 6 mg PO BEDTIME PRN PRN Reason: Insomnia Methadone HCl (Methadone Hcl 20 Mg/2 Ml Oral.Conc) 170 mg PO DAILY [facility] Last Admin: 12/02/24 08:06 Dose: 170 mg Multivitamins/Vitamin C (Multivitamin Tablet) 1 tab PO DAILY [facility] Last Admin: 12/02/24 08:11 Dose: 1 tab Nicotine (Nicotine 21 Mg Patch.Td24) 21 mg TRANSDERMA DAILY [facility] Last Admin: 12/02/24 08:23 Dose: Not Given Nicotine Polacrilex (Nicotine Polacrilex 2 Mg Gum) 4 mg BUCCAL Q2H PRN PRN Reason: Smoking Cessation Last Admin: 12/02/24 19:54 Dose: 4 mg Olanzapine (Olanzapine 5 Mg Tablet) 5 mg PO BEDTIME PRN PRN Reason: Psychosis Olanzapine (Olanzapine 10 Mg Tablet) 20 mg PO BEDTIME [facility] Last Admin: 12/02/24 21:43 Dose: 20 mg Ondansetron HCl (Ondansetron Hcl 4 Mg/2 Ml Vial) 4 mg IVPUSH Q8H PRN PRN Reason: Nausea and Vomiting Oxycodone HCl (Oxycodone Hcl Immed Release 5 Mg Tablet) 5 mg PO Q6H PRN PRN Reason: Pain, Moderate(Pain Scale 4-6) Last Admin: 12/02/24 23:02 Dose: 5 mg Pharmacy Consult (Consult Rx Vancomycin Dosing) 1 each MISCELLANE DAILY PRN PRN Reason: Consult order Quetiapine Fumarate (Quetiapine Fumarate 50 Mg Tablet) 50 mg PO BEDTIME PRN PRN Reason: Sleep Sodium Chloride (0.9 % Sodium Chloride Flush 3 Ml Syringe) 3 ml IVFLUSH QSHIFT [facility] Last Admin: 12/02/24 15:53 Dose: 3 ml Trazodone HCl (Trazodone Hcl 50 Mg Tablet) 50 mg PO BEDTIME MRX1 PRN PRN Reason: Insomnia Last Admin: 12/01/24 23:13 Dose: 50 mg Home Medications ?Medication ?Instructions ?Recorded ?Confirmed ?Last Taken ?Type acetaminophen 325 mg tablet 650 mg PO Q6H PRN Pain, Mild 12/01/24 12/01/24 Unknown History amoxicillin 875 mg-potassium 1 tab PO BID 12/01/24 12/01/24 Unknown History clavulanate 125 mg tablet clonazepam 1 mg tablet 1 mg PO BEDTIME 12/01/24 12/01/24 Unknown History clonazepam 1 mg tablet 1 mg PO BID PRN Anxiety 12/01/24 12/01/24 Unknown History clonazepam 1 mg tablet 1 mg PO Q6H PRN Anxiety 12/01/24 12/01/24 Unknown History clonazepam 2 mg tablet 2 mg PO BID PRN Anxiety 12/01/24 12/01/24 Unknown History dextroamphetamine-amphetamine ER 5 5 mg PO DAILY 12/01/24 12/01/24 Unknown History mg 24hr capsule,extend release (Adderall XR) fluphenazine HCl 5 mg tablet 15 mg PO BID 12/01/24 12/01/24 Unknown History gabapentin 300 mg capsule 300 mg PO TID 12/01/24 12/01/24 Unknown History gabapentin 400 mg capsule 400 mg PO TID 12/01/24 12/01/24 Unknown History melatonin 3 mg tablet 3 mg PO BEDTIME 12/01/24 12/01/24 Unknown History melatonin 3 mg tablet 3 mg PO BEDTIME PRN Insomnia 12/01/24 12/01/24 Unknown History methadone 10 mg/mL oral 170 mg PO DAILY 12/01/24 12/01/24 Unknown History concentrate (Methadose) multivitamin 1 tab PO DAILY 12/01/24 12/01/24 Unknown History nicotine (polacrilex) 2 mg gum 4 mg buccal Q2H PRN Smoking 12/01/24 12/01/24 Unknown History Cessation nicotine 21 mg/24 hr daily 1 patch transdermal DAILY 12/01/24 12/01/24 Unknown History transdermal patch olanzapine 20 mg tablet 20 mg PO BEDTIME 12/01/24 12/01/24 Unknown History olanzapine 5 mg tablet 5 mg PO BEDTIME PRN Psychosis 12/01/24 12/01/24 Unknown History quetiapine 50 mg tablet 50 mg PO BEDTIME PRN Sleep 12/01/24 12/01/24 Unknown History Physical Exam 2 Vital Signs: Vital Signs: Last Vital Signs Temp 99.1 F 12/02/24 20:00 Pulse 97 12/02/24 20:00 Resp 20 12/02/24 20:00 BP 110/62 12/02/24 20:00 Pulse Ox 98 12/02/24 20:00 O2 Del Method Room Air 12/02/24 20:00 BMI result Body Mass Index 23.1 Const: General: cooperative HEENT: Head: Yes normal to inspection Face and sinus: Yes normal facial exam Mouth: Normal oral and palatal mucosa present Teeth and gingiva: d entition normal Eyes: General: appearance normal, both eyes and all related structures P upils: Equal, round and reactive pupils present Resp: Effort & Inspection: normal respiratory effort Cardio: Rate: regular rate Rhythm: regular rhythm GI: Palpation (GI): Soft to palpation and nontender : General: Yes no CVA tenderness Back/Spine/Pelvis: Back: no CVA tenderness Skin: General skin exam: no rashes or lesions noted Neuro: General: moves all extremities Cranial nerves: Yes Equal, round and reactive pupils present Extrem: Other: open ulcers left great toe ,abrasions left and right leg General: Yes normal to inspection Psych: Appearance: grossly normal Results Labs 12/01/24 13:04 12/01/24 13:04 Microbiology Microbiology Results: Microbiology 12/01/24 15:25 Blood - Venous Blood Culture - Preliminary No growth after 24 hours. 12/01/24 13:04 Blood - Venous Blood Culture - Preliminary No growth after 24 hours. Assessment and Plan (1) Cellulitis of left foot: Status: Acute Plan six weeks po linezolid and then po Bactrim DS every ,,Thursday infefi
[2024-12-03] MEDS: 0.9 % Sodium Chloride Flush 3 ML SYRINGE IVFLUSH ×4 (00:02→21:13)
--- NOTE | 2024-12-03 00:50 | PC.NURSE ---
Patient due for 0000 dose of iv Vancomycin, however, Patient refused labwork for a trough value for dosing. Lab made many attempts and education provided by this blurb writer with no luck. Hospitalist on duty alerted, he stated to reach out to Pharmacy, pharmacy was called explained declined labwork and this will be dose #4. Pharmacy stated okay to administer midnight dose and they will try again for a morning draw. Dose given as per MAR and information shared with patient.
[2024-12-03 03:20] VITALS: BP 113/62; PULSE 96; RESP 20; TEMP 36.2; O2SAT 98
[2024-12-03] MEDS: clonazePAM 1 MG TABLET PO ×5 (03:45→21:13)
[2024-12-03] MEDS: Piperacillin Sodium/Tazobactam 3.375 GM in 0.9 % Sodium Chloride 50 ML IV ×4 (03:48→21:13)
[2024-12-03] MEDS: oxyCODONE HCl Immed Release 5 MG TABLET PO ×3 (05:16→18:42)
[2024-12-03 06:57] VITALS: BP 101/58; PULSE 98; RESP 20; TEMP 37.6; O2SAT 96
[2024-12-03] MEDS: methADONE HCl 20 MG/2 ML ORAL.CONC 170 MG PO (09:11)
[2024-12-03] MEDS: Multivitamin TABLET 1 TAB PO (09:12)
[2024-12-03] MEDS: Dextroamphetamine/Amphetamine XR 5 MG CAP.ER.24H PO (09:12)
[2024-12-03] MEDS: Gabapentin 400 MG CAPSULE PO ×3 (09:12→21:13)
[2024-12-03] MEDS: Nicotine Polacrilex 2 MG GUM 4 MG BUCCAL ×2 (09:37→13:39)
[2024-12-03 11:04] LABS: Basophils Percent Auto 0.2 % (0-2); Eosinophils Absolute Auto 0.1 X10*3/uL (0.0-0.4); Eosinophils Percent Auto 2.1 % (0-4); Hematocrit 34.5 % (42.0-52.0); Hemoglobin 11.9 g/dl (14.0-18.0); Imm Gran Abs Auto 0.19 X10*3/uL (0.00-0.03); Imm Gran Pct Auto 3.5 % (0.0-0.4); Lymphocytes Absolute Auto 1.4 X10*3/uL (1.2-4.9); Lymphocytes Percent Auto 26.9 % (20-40); MANUAL DIFF FLAG SCAN; Mean Corpuscular HGB Conc 34.5 g/dl (31.0-36.0); Mean Corpuscular Hemoglobin 31.6 pg (27.0-33.0); Mean Corpuscular Volume 91.5 fL (80.0-98.0); Mean Platelet Volume 11.3 fL (9.4-12.4); Monocytes Absolute Auto 0.5 X10*3/uL (0.1-1.2); Monocytes Percent Auto 8.4 % (2-11); Neutrophils Absolute Auto 3.2 x10*3/uL (2.0-8.3); Neutrophils Percent Auto 58.9 % (45-73); PLT CLUMP 1; Red Blood Count 3.77 X10*6/uL (4.60-5.80); Red Cell Distribution Width 14.3 % (11.0-16.0); SCAN SMEAR FLAG 1
[2024-12-03 11:16] LABS: Anion Gap 14 (12-20); Blood Urea Nitrogen 7 mg/dL (9-16); Calcium 8.5 mg/dL (8.4-10.2); Carbon Dioxide 27 mmol/L (22-29); Chloride 102 mmol/L (96-108); Estimated Glomerular Filt Rate > 60; Glucose Random 109 mg/dL (60-115); Potassium 4.7 mmol/L (3.3-5.1); Sodium 138 mmol/L (135-145); White Blood Count 5.4 X10*3/uL (4.8-10.8)
[2024-12-03 11:18] LABS: Platelet Count 156 X10*3/uL (160-400)
[2024-12-03 11:19] LABS: SLIDE REVIEW VERIFIED
--- NOTE | 2024-12-03 11:33 | HO.PM.IMPN ---
Subjective Subjective Date of Service: 12/03/24 Interval History: seen and evaluated more alert and interactive left foot covered with dressing reporting pain in LEs Review of Systems Review of Systems: Yes all other systems are reviewed and are negative Physical Exam Vital Signs: Vital Signs: Last Vital Signs Temp 99.7 F 12/03/24 06:57 Pulse 98 12/03/24 06:57 Resp 20 12/03/24 06:57 BP 101/58 L 12/03/24 06:57 Pulse Ox 96 12/03/24 06:57 O2 Del Method Room Air 12/03/24 06:57 BMI result Body Mass Index 23.1 Const: Other: Constitutional : sleepy, looks sedated, not in distress Neck : Normal inspection, Supple Cardiovascular : RRR, no JVP, no lower extremity edema Respiratory : good bilateral air entry, no crackles, wheezes or rhonchi Gastrointestinal: soft, lax, Normal bowel sounds, Non tender Skin : Warm, Dry, LLE erythema improving covered with dressing , Right big toe ulcer with surrounding erythema improving Neurological : Alert with stimulation & oriented x3, No focal deficit Objective Data Active Medications Acetaminophen (Acetaminophen 325 Mg Tablet) 650 mg PO Q6H PRN PRN Reason: Pain, Mild 1-3,fever,headache Last Admin: 12/01/24 20:04 Dose: 650 mg Documented By: GOYO Amphetamine/Dextroamphetamine (Dextroamphetamine/Amphetamine Xr 5 Mg Cap.Er.24h) 5 mg PO DAILY [facility] Last Admin: 12/03/24 09:12 Dose: 5 mg Documented By: ANNABEL Calcium Carbonate (Calcium Carbonate 750 Mg Tab.Chew) 750 mg PO Q4H PRN PRN Reason: Heartburn Clonazepam (Clonazepam 1 Mg Tablet) 1 mg PO BEDTIME [facility] Last Admin: 12/02/24 22:29 Dose: 1 mg Documented By: BHARGAV Clonazepam (Clonazepam 1 Mg Tablet) 1 mg PO Q4H PRN PRN Reason: Anxiety Last Admin: 12/03/24 09:36 Dose: 1 mg Documented By: ANNABEL Enoxaparin Sodium (Enoxaparin Sodium 40 Mg/0.4 Ml Syringe) 40 mg SUBCUT Q24H [facility] Last Admin: 12/02/24 16:33 Dose: Not Given Documented By: UNRULY Non-Admin Reason: Patient Refused Fluphenazine HCl (Fluphenazine Hcl 5 Mg Tablet) 15 mg PO BID [facility] Last Admin: 12/03/24 09:16 Dose: Not Given Documented By: ANNABEL Non-Admin Reason: Patient Refused Gabapentin (Gabapentin 300 Mg Capsule) 300 mg PO TID [facility] Last Admin: 12/02/24 08:11 Dose: 300 mg Documented By: GRAZMICHELET Gabapentin (Gabapentin 400 Mg Capsule) 400 mg PO TID [facility] Last Admin: 12/03/24 09:12 Dose: 400 mg Documented By: ANNABEL Piperacillin Sod/Tazobactam (Sod 3.375 gm/ Sodium Chloride) 50 mls @ 100 mls/hr IV Q6H [facility] Last Infusion: 12/03/24 09:57 Dose: Infused Documented By: ANNABEL Daptomycin 490 mg/ Sodium (Chloride) 59.8 mls @ 100 mls/hr IV Q24H [facility] Magnesium Hydroxide (Milk Of Magnesia 30 Ml Oral.Susp) 30 ml PO DAILY PRN PRN Reason: Constipation Melatonin (Melatonin 3 Mg Tablet) 6 mg PO BEDTIME PRN PRN Reason: Insomnia Methadone HCl (Methadone Hcl 20 Mg/2 Ml Oral.Conc) 170 mg PO DAILY [facility] Last Admin: 12/03/24 09:11 Dose: 170 mg Documented By: ANNABEL Co-signed By: DA Multivitamins/Vitamin C (Multivitamin Tablet) 1 tab PO DAILY [facility] Last Admin: 12/03/24 09:12 Dose: 1 tab Documented By: ANNABEL Nicotine (Nicotine 21 Mg Patch.Td24) 21 mg TRANSDERMA DAILY [facility] Last Admin: 12/03/24 09:17 Dose: Not Given Documented By: ANNABEL Non-Admin Reason: Patient Refused Nicotine Polacrilex (Nicotine Polacrilex 2 Mg Gum) 4 mg BUCCAL Q2H PRN PRN Reason: Smoking Cessation Last Admin: 12/03/24 09:37 Dose: 4 mg Documented By: ANNABEL Olanzapine (Olanzapine 5 Mg Tablet) 5 mg PO BEDTIME PRN PRN Reason: Psychosis Olanzapine (Olanzapine 10 Mg Tablet) 20 mg PO BEDTIME [facility] Last Admin: 12/02/24 21:43 Dose: 20 mg Documented By: BHARGAV Ondansetron HCl (Ondansetron Hcl 4 Mg/2 Ml Vial) 4 mg IVPUSH Q8H PRN PRN Reason: Nausea and Vomiting Oxycodone HCl (Oxycodone Hcl Immed Release 5 Mg Tablet) 5 mg PO Q6H PRN PRN Reason: Pain, Moderate(Pain Scale 4-6) Last Admin: 12/03/24 05:16 Dose: 5 mg Documented By: BHARGAV Quetiapine Fumarate (Quetiapine Fumarate 50 Mg Tablet) 50 mg PO BEDTIME PRN PRN Reason: Sleep Sodium Chloride (0.9 % Sodium Chloride Flush 3 Ml Syringe) 3 ml IVFLUSH QSHIFT [facility] Last Admin: 12/03/24 08:57 Dose: 3 ml Documented By: ANNABEL Trazodone HCl (Trazodone Hcl 50 Mg Tablet) 50 mg PO BEDTIME MRX1 PRN PRN Reason: Insomnia Last Admin: 12/01/24 23:13 Dose: 50 mg Documented By: MERYLQC Labs 12/03/24 10:40 12/03/24 10:40 Labs: Laboratory Results - last 24 hr 12/03/24 12/03/24 12/03/24 10:40 10:40 10:40 MCV 91.5 MCH 31.6 MCHC 34.5 RDW 14.3 Plt Count 156 L D MPV 11.3 Immature Gran % (Auto) 3.5 H Neut % (Auto) 58.9 Lymph % (Auto) 26.9 [place] % (Auto) 8.4 Eos % (Auto) 2.1 Baso % (Auto) 0.2 Lymph # (Auto) 1.4 [place] # (Auto) 0.5 Eos # (Auto) 0.1 Baso # (Auto) 0.0 Abs Immat Gran (auto) 0.19 H Absolute Neuts (auto) 3.2 Absolute Nucleated RBC 0.000 Nucleated RBC % (auto) 0.0 Smear Tech's Comments VERIFIED Anion Gap 14 Estim Creat Clear Calc 185.0 Cancelled Estimated GFR > 60 Cancelled Random Glucose 109 Calcium 8.5 Hold Red Top See Note Microbiology Microbiology Results: Microbiology 12/01/24 15:25 Blood Culture - Preliminary Blood - Venous No growth after 24 hours. 12/01/24 13:04 Blood Culture - Preliminary Blood - Venous No growth after 24 hours. Assessment and Plan (1) Cellulitis of left foot: Status: Acute (2) Foot osteomyelitis, left: Status: Acute Plan A 34 years old male with PMH of opiates dependence, schizophrenia, neuropathy, Hx IVDU among others presenting to ED with lower extremities wounds. Cellulitis of LLE with acute on chronic osteomyelitis of big toe Prev images concerning for chronic Osteomyelitis on distal phalanx, patient refused amputation then Not septic PEnding cultures have been refusing Vancomycin trough testing. To DC IV VAncomycin Continue with Daptomycin and Zosyn for now ID suggest no need for MRI , best treatment should be amputation of the chronic OM. For now to treat as outpatient with Zyvox but can not as it carries high risk of serotonin syndrome giving rest of his medications. can do Doxycyclin instead surgery consults, debridement done, to be followed Acute Toxic encephalopathy related to polypharmacy improving Decrease Gabapentin Decrease Lorazepam monitor other meds and his mental status, recurrent redirection Opioid dependence on MEthadone , continue Peripheral neuropathy Gabapentin Hx Schizophrenia resume Olanzapine DVT PPx Lovenox The patient will need overnight hopsital stay for treatment of lower extremity cellulitis with concern of Osteomyelitis pending MRI and specialist evaluation. Quality Stroke Does the patient have a stroke diagnosis?: No VTE Prior VTE?: No VTE Risk Level:: Medical - moderate - high VTE Device Contraindication: Treatment Not Indicated VTE Drug Contraindication: N/A - Med Ordered
[2024-12-03] MEDS: SODIUM CHLORIDE 0.9% IV (12:43)
[2024-12-03] MEDS: DAPTOMYCIN IV (12:43)
[2024-12-03 15:20] VITALS: BP 114/61; PULSE 110; RESP 18; TEMP 36.5; O2SAT 96
--- NOTE | 2024-12-03 18:31 | PC.NURSE ---
Patient's mom would like to discuss disposition when ready for discharge, she would prefer [facility], but would like a phone call from case management for further discussion.
--- NOTE | 2024-12-03 19:02 | PM.PNGS ---
Subjective Subjective Date of Service: 12/03/24 Interval history: Patient is still complaining of pain in both legs especially when he walks. Hip x-ray showed some AVN but nothing very concerning. He is concerned about potential amputation and does not really want to do that but is willing to try to get more antibiotic control of the potential bone infection. 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 Strong palpable pedal pulse. Erythema is about the same but maybe a little less bright especially on the dorsal aspect of the toe Objective Data Active Medications Acetaminophen (Acetaminophen 325 Mg Tablet) 650 mg PO Q6H PRN PRN Reason: Pain, Mild 1-3,fever,headache Last Admin: 12/01/24 20:04 Dose: 650 mg Documented By: GOYO Amphetamine/Dextroamphetamine (Dextroamphetamine/Amphetamine Xr 5 Mg Cap.Er.24h) 5 mg PO DAILY [facility] Last Admin: 12/03/24 09:12 Dose: 5 mg Documented By: ANNABEL Calcium Carbonate (Calcium Carbonate 750 Mg Tab.Chew) 750 mg PO Q4H PRN PRN Reason: Heartburn Clonazepam (Clonazepam 1 Mg Tablet) 1 mg PO BEDTIME [facility] Last Admin: 12/02/24 22:29 Dose: 1 mg Documented By: BHARGAV Clonazepam (Clonazepam 1 Mg Tablet) 1 mg PO Q4H PRN PRN Reason: Anxiety Last Admin: 12/03/24 18:42 Dose: 1 mg Documented By: ANNABEL Enoxaparin Sodium (Enoxaparin Sodium 40 Mg/0.4 Ml Syringe) 40 mg SUBCUT Q24H [facility] Last Admin: 12/03/24 15:44 Dose: Not Given Documented By: ANNABEL Non-Admin Reason: Patient Refused Fluphenazine HCl (Fluphenazine Hcl 5 Mg Tablet) 15 mg PO BID [facility] Last Admin: 12/03/24 09:16 Dose: Not Given Documented By: ANNABEL Non-Admin Reason: Patient Refused Gabapentin (Gabapentin 300 Mg Capsule) 300 mg PO TID [facility] Last Admin: 12/02/24 08:11 Dose: 300 mg Documented By: UNRULY Gabapentin (Gabapentin 400 Mg Capsule) 400 mg PO TID [facility] Last Admin: 12/03/24 15:39 Dose: 400 mg Documented By: ANNABEL Piperacillin Sod/Tazobactam (Sod 3.375 gm/ Sodium Chloride) 50 mls @ 100 mls/hr IV Q6H [facility] Last Infusion: 12/03/24 16:17 Dose: Infused Documented By: ANNABEL Daptomycin 490 mg/ Sodium (Chloride) 59.8 mls @ 100 mls/hr IV Q24H [facility] Last Infusion: 12/03/24 13:36 Dose: Infused Documented By: ANNABEL Magnesium Hydroxide (Milk Of Magnesia 30 Ml Oral.Susp) 30 ml PO DAILY PRN PRN Reason: Constipation Melatonin (Melatonin 3 Mg Tablet) 6 mg PO BEDTIME PRN PRN Reason: Insomnia Methadone HCl (Methadone Hcl 20 Mg/2 Ml Oral.Conc) 170 mg PO DAILY [facility] Last Admin: 12/03/24 09:11 Dose: 170 mg Documented By: ANNABEL Co-signed By: DA Multivitamins/Vitamin C (Multivitamin Tablet) 1 tab PO DAILY [facility] Last Admin: 12/03/24 09:12 Dose: 1 tab Documented By: ANNABEL Nicotine (Nicotine 21 Mg Patch.Td24) 21 mg TRANSDERMA DAILY [facility] Last Admin: 12/03/24 09:17 Dose: Not Given Documented By: ANNABEL Non-Admin Reason: Patient Refused Nicotine Polacrilex (Nicotine Polacrilex 2 Mg Gum) 4 mg BUCCAL Q2H PRN PRN Reason: Smoking Cessation Last Admin: 12/03/24 13:39 Dose: 4 mg Documented By: ANNABEL Olanzapine (Olanzapine 5 Mg Tablet) 5 mg PO BEDTIME PRN PRN Reason: Psychosis Olanzapine (Olanzapine 10 Mg Tablet) 20 mg PO BEDTIME [facility] Last Admin: 12/02/24 21:43 Dose: 20 mg Documented By: BHARGAV Ondansetron HCl (Ondansetron Hcl 4 Mg/2 Ml Vial) 4 mg IVPUSH Q8H PRN PRN Reason: Nausea and Vomiting Oxycodone HCl (Oxycodone Hcl Immed Release 5 Mg Tablet) 5 mg PO Q6H PRN PRN Reason: Pain, Moderate(Pain Scale 4-6) Last Admin: 12/03/24 18:42 Dose: 5 mg Documented By: ANNABEL Quetiapine Fumarate (Quetiapine Fumarate 50 Mg Tablet) 50 mg PO BEDTIME PRN PRN Reason: Sleep Sodium Chloride (0.9 % Sodium Chloride Flush 3 Ml Syringe) 3 ml IVFLUSH QSHIFT [facility] Last Admin: 12/03/24 15:42 Dose: 3 ml Documented By: ANNABEL Trazodone HCl (Trazodone Hcl 50 Mg Tablet) 50 mg PO BEDTIME MRX1 PRN PRN Reason: Insomnia Last Admin: 12/01/24 23:13 Dose: 50 mg Documented By: MERYLQC Labs 12/03/24 10:40 12/03/24 10:40 Labs: Laboratory Results - last 24 hr 12/03/24 12/03/24 12/03/24 10:40 10:40 10:40 MCV 91.5 MCH 31.6 MCHC 34.5 RDW 14.3 Plt Count 156 L D MPV 11.3 Immature Gran % (Auto) 3.5 H Neut % (Auto) 58.9 Lymph % (Auto) 26.9 Towns % (Auto) 8.4 Eos % (Auto) 2.1 Baso % (Auto) 0.2 Lymph # (Auto) 1.4 Towns # (Auto) 0.5 Eos # (Auto) 0.1 Baso # (Auto) 0.0 Abs Immat Gran (auto) 0.19 H Absolute Neuts (auto) 3.2 Absolute Nucleated RBC 0.000 Nucleated RBC % (auto) 0.0 Smear Tech's Comments VERIFIED Anion Gap 14 Estim Creat Clear Calc 185.0 Cancelled Estimated GFR > 60 Cancelled Random Glucose 109 Calcium 8.5 Hold Red Top See Note Microbiology Microbiology Results: Microbiology 12/01/24 15:25 Blood Culture - Preliminary Blood - Venous No growth after 48 hours. 12/01/24 13:04 Blood Culture - Preliminary Blood - Venous No growth after 48 hours. Procedures Date of Service Date of Service: 12/03/24 Progress Note: A&P Assessment and plan (1) Cellulitis of left foot: Status: Acute Assessment and Plan: 34-year-old male with left toe cellulitis and soft tissue injury but not quite probing to bone. Patient back in August of 2023 did have changes which were highly suspicious for distal osteomyelitis. Plain x-rays now not convincing. Discussion of whether to do MRI. Patient is high-risk for needing IV antibiotics and PICC line at home secondary to his opiate dependence and psych issues. From a soft tissue perspective I think that this can heal and do decently well with some short to prison antibiotic coverage. Potentially p.o. antibiotics for the longer term. If we can get this if there is any osteomyelitis it can declare itself at the next future date. I do not think the patient is reliable for HBO coming in 3 hours for 6 weeks. He does not seem like that is something he wants to do. However he does not want to do an amputation at this point. I think at this point continue with dressings and antibiotic coverage most likely okay to DC hopefully to home if we can get him on a p.o. 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 There is no worsening that is requiring acute amputation at this point Time Spent With Patient Time: Total time managing care of this patient today ____ minutes. Quality Stroke Does the patient have a stroke diagnosis?: No VTE Prior VTE?: No VTE Risk Level:: Medical - moderate - high VTE Device Contraindication: Treatment Not Indicated VTE Drug Contraindication: N/A - Med Ordered
--- NOTE | 2024-12-03 19:29 | PC.NURSE ---
Staff from [place] [id number] came and picked up belongings from ED and brought them to patient.
[2024-12-03 19:45] VITALS: BP 113/61; PULSE 94; RESP 18; TEMP 36.6; O2SAT 96
[2024-12-04 02:40] VITALS: BP 114/63; PULSE 96; RESP 18; TEMP 36.4; O2SAT 94
[2024-12-04] MEDS: Nicotine Polacrilex 2 MG GUM 4 MG BUCCAL ×3 (03:41→21:33)
[2024-12-04] MEDS: oxyCODONE HCl Immed Release 5 MG TABLET PO ×4 (03:41→23:21)
[2024-12-04] MEDS: clonazePAM 1 MG TABLET PO ×5 (03:41→20:07)
[2024-12-04] MEDS: Piperacillin Sodium/Tazobactam 3.375 GM in 0.9 % Sodium Chloride 50 ML IV ×4 (04:37→21:29)
--- NOTE | 2024-12-04 06:10 | PC.NURSE ---
Patient refused labs this morning.
[2024-12-04 07:34] VITALS: BP 110/61; PULSE 96; RESP 14; TEMP 36.4; O2SAT 96
[2024-12-04] MEDS: Gabapentin 400 MG CAPSULE PO ×3 (08:39→20:07)
[2024-12-04] MEDS: Dextroamphetamine/Amphetamine XR 5 MG CAP.ER.24H PO (08:39)
[2024-12-04] MEDS: Multivitamin TABLET 1 TAB PO (08:39)
[2024-12-04] MEDS: methADONE HCl 20 MG/2 ML ORAL.CONC 170 MG PO (08:40)
[2024-12-04] MEDS: 0.9 % Sodium Chloride Flush 3 ML SYRINGE IVFLUSH ×3 (08:59→23:20)
--- NOTE | 2024-12-04 09:00 | P.CONOP_ITS ---
History of Present Illness [facility] Consult date: 12/04/24 Chief complaint: Cellulitis Narrative: Mr. Ann is a 34 yo male with a past medical history significant for opiate dependence, schizophrenia, neuropathy, Hx IVDU, and peripheral nuropathy who presented to ED on 12/01/24 for evaluation of lower extremities wounds. The patient reports left foot pain, swelling and warmth up to his ankle and Right big toe swelling and pus formation along with right hip pain. No chest pain, palpitations, SOB, nausea, vomiting, diarrhea or urinary symptoms. He was started on oral antibiotics yesterday but feels worse pain and swelling today. he is saying that walking is very painful. He has chronic osteomylitis of the left great toe. X-rays obtained of bilateral hips were concerning for AVN, therefore orthopedics was consulted for recommendations. Review of Systems 2 Review of Systems: Yes all other systems are reviewed and are negative PMF Past Medical History Medical History Foot osteomyelitis, left Routine medical exam Cellulitis of great toe, left Peripheral neuropathy History of intravenous drug abuse Opiate dependence Family History Family history: reviewed and not pertinent Social History Social History Household Members: None Household Members Other:: MOM Housing: Apartment Do you presently have visiting nurse or other home services: No Unable to assess alcohol history related to: Refusing to respond Comment: sitter at bedside at all times Patient Tobacco Use Status: Current someday Tobacco user Tobacco use type: Cigarette Cigarette Packs Per Day: 2 Cigarettes Per Day: 40.0 Years Smoked: 19 Smoked in Last 30 Days: Yes e-Cigarette/Vaping Use: Never Used Patient Interested in Nicotine Replacement: Yes Patient Given Instructions on How to Stop Smoking: No Second Hand Smoke Exposure: No Use of substances other than those prescribed or required for medical reasons: No Currently Displaying Signs/Symptoms of Drug Intoxication Withdrawal: No Have you been hit, kicked, punched, or otherwise hurt by someone within the past year? If so, by whom?: No Do you feel safe in your current relationship?: No Current Relationship Is there a partner from a previous relationship who is making you feel unsafe now?: No Are you made to feel afraid or neglected: No Advance Directives: No Advance Directives Information Provided: No Do you have a plan to hurt others: No Plan Recently lost weight without trying: No How much weight loss: Not applicable Eating poorly because of decreased appetite: No Nutrition screen score: 0 Nutrition Risks: No Nutritional Risk Poor oral hygiene: No service: No Sexual orientation: Straight/Heterosexual Meds Allergies Allergy/AdvReac Type Severity Reaction Status Date / Time haloperidol [From Haldol] AdvReac Severe tongue Verified 12/01/24 12:05 swelling Active Medications: Current Medications Acetaminophen (Acetaminophen 325 Mg Tablet) 650 mg PO Q6H PRN PRN Reason: Pain, Mild 1-3,fever,headache Last Admin: 12/01/24 20:04 Dose: 650 mg Amphetamine/Dextroamphetamine (Dextroamphetamine/Amphetamine Xr 5 Mg Cap.Er.24h) 5 mg PO DAILY [facility] Last Admin: 12/04/24 08:39 Dose: 5 mg Calcium Carbonate (Calcium Carbonate 750 Mg Tab.Chew) 750 mg PO Q4H PRN PRN Reason: Heartburn Clonazepam (Clonazepam 1 Mg Tablet) 1 mg PO BEDTIME [facility] Last Admin: 12/03/24 21:13 Dose: 1 mg Clonazepam (Clonazepam 1 Mg Tablet) 1 mg PO Q4H PRN PRN Reason: Anxiety Last Admin: 12/04/24 08:39 Dose: 1 mg Enoxaparin Sodium (Enoxaparin Sodium 40 Mg/0.4 Ml Syringe) 40 mg SUBCUT Q24H [facility] Last Admin: 12/03/24 15:44 Dose: Not Given Fluphenazine HCl (Fluphenazine Hcl 5 Mg Tablet) 15 mg PO BID [facility] Last Admin: 12/04/24 08:44 Dose: Not Given Gabapentin (Gabapentin 300 Mg Capsule) 300 mg PO TID [facility] Last Admin: 12/02/24 08:11 Dose: 300 mg Gabapentin (Gabapentin 400 Mg Capsule) 400 mg PO TID [facility] Last Admin: 12/04/24 08:39 Dose: 400 mg Piperacillin Sod/Tazobactam (Sod 3.375 gm/ Sodium Chloride) 50 mls @ 100 mls/hr IV Q6H [facility] Last Infusion: 12/04/24 05:15 Dose: Infused Daptomycin 490 mg/ Sodium (Chloride) 59.8 mls @ 100 mls/hr IV Q24H [facility] Last Infusion: 12/03/24 13:36 Dose: Infused Magnesium Hydroxide (Milk Of Magnesia 30 Ml Oral.Susp) 30 ml PO DAILY PRN PRN Reason: Constipation Melatonin (Melatonin 3 Mg Tablet) 6 mg PO BEDTIME PRN PRN Reason: Insomnia Methadone HCl (Methadone Hcl 20 Mg/2 Ml Oral.Conc) 170 mg PO DAILY [facility] Last Admin: 12/04/24 08:40 Dose: 170 mg Multivitamins/Vitamin C (Multivitamin Tablet) 1 tab PO DAILY [facility] Last Admin: 12/04/24 08:39 Dose: 1 tab Nicotine (Nicotine 21 Mg Patch.Td24) 21 mg TRANSDERMA DAILY [facility] Last Admin: 12/04/24 08:44 Dose: Not Given Nicotine Polacrilex (Nicotine Polacrilex 2 Mg Gum) 4 mg BUCCAL Q2H PRN PRN Reason: Smoking Cessation Last Admin: 12/04/24 03:41 Dose: 4 mg Olanzapine (Olanzapine 5 Mg Tablet) 5 mg PO BEDTIME PRN PRN Reason: Psychosis Olanzapine (Olanzapine 10 Mg Tablet) 20 mg PO BEDTIME [facility] Last Admin: 12/03/24 21:15 Dose: Not Given Ondansetron HCl (Ondansetron Hcl 4 Mg/2 Ml Vial) 4 mg IVPUSH Q8H PRN PRN Reason: Nausea and Vomiting Oxycodone HCl (Oxycodone Hcl Immed Release 5 Mg Tablet) 5 mg PO Q6H PRN PRN Reason: Pain, Moderate(Pain Scale 4-6) Last Admin: 12/04/24 03:41 Dose: 5 mg Quetiapine Fumarate (Quetiapine Fumarate 50 Mg Tablet) 50 mg PO BEDTIME PRN PRN Reason: Sleep Sodium Chloride (0.9 % Sodium Chloride Flush 3 Ml Syringe) 3 ml IVFLUSH QSHIFT [facility] Last Admin: 12/04/24 08:59 Dose: 3 ml Trazodone HCl (Trazodone Hcl 50 Mg Tablet) 50 mg PO BEDTIME MRX1 PRN PRN Reason: Insomnia Last Admin: 12/01/24 23:13 Dose: 50 mg Home Medications ?Medication ?Instructions ?Recorded ?Confirmed ?Last Taken ?Type acetaminophen 325 mg tablet 650 mg PO Q6H PRN Pain, Mild 12/01/24 12/01/24 Unknown History amoxicillin 875 mg-potassium 1 tab PO BID 12/01/24 12/01/24 Unknown History clavulanate 125 mg tablet clonazepam 1 mg tablet 1 mg PO BEDTIME 12/01/24 12/01/24 Unknown History clonazepam 1 mg tablet 1 mg PO BID PRN Anxiety 12/01/24 12/01/24 Unknown History clonazepam 1 mg tablet 1 mg PO Q6H PRN Anxiety 12/01/24 12/01/24 Unknown History clonazepam 2 mg tablet 2 mg PO BID PRN Anxiety 12/01/24 12/01/24 Unknown History dextroamphetamine-amphetamine ER 5 5 mg PO DAILY 12/01/24 12/01/24 Unknown History mg 24hr capsule,extend release (Adderall XR) fluphenazine HCl 5 mg tablet 15 mg PO BID 12/01/24 12/01/24 Unknown History gabapentin 300 mg capsule 300 mg PO TID 12/01/24 12/01/24 Unknown History gabapentin 400 mg capsule 400 mg PO TID 12/01/24 12/01/24 Unknown History melatonin 3 mg tablet 3 mg PO BEDTIME 12/01/24 12/01/24 Unknown History melatonin 3 mg tablet 3 mg PO BEDTIME PRN Insomnia 12/01/24 12/01/24 Unknown History methadone 10 mg/mL oral 170 mg PO DAILY 12/01/24 12/01/24 Unknown History concentrate (Methadose) multivitamin 1 tab PO DAILY 12/01/24 12/01/24 Unknown History nicotine (polacrilex) 2 mg gum 4 mg buccal Q2H PRN Smoking 12/01/24 12/01/24 Unknown History Cessation nicotine 21 mg/24 hr daily 1 patch transdermal DAILY 12/01/24 12/01/24 Unknown History transdermal patch olanzapine 20 mg tablet 20 mg PO BEDTIME 12/01/24 12/01/24 Unknown History olanzapine 5 mg tablet 5 mg PO BEDTIME PRN Psychosis 12/01/24 12/01/24 Unknown History quetiapine 50 mg tablet 50 mg PO BEDTIME PRN Sleep 12/01/24 12/01/24 Unknown History Physical Exam 2 Vital Signs: Vital Signs: Last Vital Signs Temp 97.6 F 12/04/24 07:34 Pulse 96 12/04/24 07:34 Resp 14 12/04/24 07:34 BP 110/61 12/04/24 07:34 Pulse Ox 96 12/04/24 07:34 O2 Del Method Room Air 12/04/24 07:34 BMI result Body Mass Index 23.1 Const: General: cooperative, healthy appearing and no acute distress Extrem: Other: Bilateral hip flexing and extending with reported pain. Left leg is crossed over resting on the contralateral knee. open wound left great toe Results Labs 12/03/24 10:40 12/03/24 10:40 Labs: Abnormal lab results 12/03/24 Range/Units 10:40 RBC 3.77 L (4.60-5.80) X10*6/uL Hgb 11.9 L (14.0-18.0) g/dl Hct 34.5 L (42.0-52.0) % Plt Count 156 L D (160-400) X10*3/uL Immature Gran % (Auto) 3.5 H (0.0-0.4) % Abs Immat Gran (auto) 0.19 H (0.00-0.03) X10*3/uL BUN 7 L (9-16) mg/dL H & H 12/01/24 12/03/24 Range/Units 13:04 10:40 Hgb 11.2 L 11.9 L (14.0-18.0) g/dl Hct 32.3 L 34.5 L (42.0-52.0) % All other labs normal. Assessment and Plan (1) Schizophrenia, paranoid, chronic with acute exacerbation: Status: Acute (2) Opiate dependence: Status: Acute (3) Foot osteomyelitis, left: Status: Acute (4) Peripheral neuropathy: Status: Acute (5) Avascular necrosis of bones of both hips: Status: Acute Plan Not a surgical candidate at this time Supportive measures ie pain management, walker or other assistive devices for ambulation Can followup in the out patient office- However, patient does not want to discuss surgical intervention. He expresses that his body will heal itself. No additional orthopedic intervention needed at this time XR/XR hips JHON min 3V IMPRESSION: Suggestion of AVN of the bilateral femoral heads without subchondral collapse. Recommend MRI for confirmation. Otherwise normal bilateral and pelvic x-rays. Procedures Date of Service Date of Service: 12/04/24
[2024-12-04] MEDS: SODIUM CHLORIDE 0.9% IV (12:25)
[2024-12-04] MEDS: DAPTOMYCIN IV (12:25)
[2024-12-04 15:59] VITALS: BP 101/55; PULSE 96; RESP 18; TEMP 37.1; O2SAT 96
[2024-12-04 19:17] VITALS: BP 100/64; PULSE 100; RESP 17; TEMP 36.9; O2SAT 94
[2024-12-05 03:34] VITALS: BP 92/62; PULSE 76; RESP 18; TEMP 36.3; O2SAT 96
[2024-12-05] MEDS: Piperacillin Sodium/Tazobactam 3.375 GM in 0.9 % Sodium Chloride 50 ML IV ×3 (04:22→16:08)
[2024-12-05] MEDS: clonazePAM 1 MG TABLET PO ×2 (04:26→12:56)
[2024-12-05 05:59] LABS: Creatinine Clr Calc Pharmacy 182.2; Estimated Glomerular Filt Rate > 60
[2024-12-05] MEDS: Gabapentin 400 MG CAPSULE PO ×3 (07:47→20:33)
[2024-12-05] MEDS: methADONE HCl 20 MG/2 ML ORAL.CONC 170 MG PO (07:47)
[2024-12-05] MEDS: fluPHENAZine HCl 5 MG TABLET 15 MG PO (07:47)
[2024-12-05] MEDS: Dextroamphetamine/Amphetamine XR 5 MG CAP.ER.24H PO (07:47)
[2024-12-05] MEDS: oxyCODONE HCl Immed Release 5 MG TABLET PO ×3 (07:48→21:07)
[2024-12-05] MEDS: Multivitamin TABLET 1 TAB PO (07:48)
[2024-12-05] MEDS: 0.9 % Sodium Chloride Flush 3 ML SYRINGE IVFLUSH ×2 (07:48→20:33)
[2024-12-05 08:00] VITALS: BP 102/57; PULSE 77; RESP 14; TEMP 36.5; O2SAT 98
[2024-12-05] MEDS: Nicotine Polacrilex 2 MG GUM 4 MG BUCCAL ×2 (08:43→17:14)
--- NOTE | 2024-12-05 10:36 | MHC.CM.PN ---
Addendum entered by Mónica Carias RN 12/05/24 13:42: P.T. RECOMMENDING STR, REFERRAL TO BE PLACED LOCALLY AND TO [facility] Addendum entered by Mónica Carias RN 12/05/24 11:08: PER HOSPITALIST PT'S MOM TG AGREEABLE TO EITHER PLAN HOME VS STR, CM WILL FOLLOW UP W/TG ONCE PT EVAL IS COMPLETED. Addendum entered by Mónica Carias RN 12/05/24 10:58: CM MET W/PT TO DISCUSS DISPO, PT REPORTS HE IS WILLING TO GO TO STR IN [facility] (D/T METHADONE), PT ALSO REPORTS HE IS UNSURE IF HE WANTS CM TO REFER HIM TO [facility] D/T TRANSPORTATION AND CM REPORTED WE COULD CHECK ON PT1 STATUS. PT PROVIDED CM WITH AN ADDITIONAL PHONE NUMBER FOR [facility] [phone], NUMBER PROVIDED TO HOSPITALIST Original Note: EMR REVIEWED, PT MAY BE MEDICALLY CLEARED FOR DC HOWEVER P.T. EVAL PENDING FOR DISPO, PER HOSPITALIST PT WILL ALSO NEED WOUND CLINIC APPT W/DR. RODRIGUEZ PRIOR TO DC. REFERRAL FAXED TO [facility]. DC ATTEMPTED TO CONTACT PT'S MOTHER AT NUMBER AND FILE X2, CALL FORWARDED TO [employer] X2.
[2024-12-05] MEDS: SODIUM CHLORIDE 0.9% IV (12:24)
[2024-12-05] MEDS: DAPTOMYCIN IV (12:24)
[2024-12-05 15:22] VITALS: BP 97/54; PULSE 82; RESP 18; TEMP 36.8; O2SAT 97
--- NOTE | 2024-12-05 15:50 | MHC.CM.PN ---
CM RECEIVED [facility]ILIP[facility] QUESTIONING REASON PT ON 1:1, PT ON SITTER FROM ADMISSION TO EARLY 12/03 FOR SI. PT NOT FROM HOME, PT ADMITTED FROM [facility] FOR EVAL OF WOUNDS, PSYCH CONSULT REQUESTED, [facility] PAPERWORK DOES NOT SPECIFY REASON FOR [facility] ADMISSION.
--- NOTE | 2024-12-05 16:23 | P.PNIM_ITS ---
Subjective Subjective Date of Service: 12/05/24 Interval History: seen and evaluated alert and interactive left foot covered with dressing reporting pain in LEs Review of Systems Review of Systems: Yes all other systems are reviewed and are negative Physical Exam 2 Vital Signs: Vital Signs: Last Vital Signs Temp 98.2 F 12/05/24 15:22 Pulse 82 12/05/24 15:22 Resp 18 12/05/24 15:22 BP 97/54 L 12/05/24 15:22 Pulse Ox 97 12/05/24 15:22 O2 Del Method Room Air 12/05/24 15:22 BMI result Body Mass Index 23.1 Const: Other: Constitutional : sleepy, looks sedated, not in distress Neck : Normal inspection, Supple Cardiovascular : RRR, no JVP, no lower extremity edema Respiratory : good bilateral air entry, no crackles, wheezes or rhonchi Gastrointestinal: soft, lax, Normal bowel sounds, Non tender Skin : Warm, Dry, LLE erythema improving covered with dressing , open wound in big toe packed and covered, Right big toe ulcer with surrounding erythema improving Neurological : Alert with stimulation & oriented x3, No focal deficit Objective Data Active Medications Acetaminophen (Acetaminophen 325 Mg Tablet) 650 mg PO Q6H PRN PRN Reason: Pain, Mild 1-3,fever,headache Last Admin: 12/01/24 20:04 Dose: 650 mg Documented By: GOYO Amphetamine/Dextroamphetamine (Dextroamphetamine/Amphetamine Xr 5 Mg Cap.Er.24h) 5 mg PO DAILY [facility] Last Admin: 12/05/24 07:47 Dose: 5 mg Documented By: ADRIEL Calcium Carbonate (Calcium Carbonate 750 Mg Tab.Chew) 750 mg PO Q4H PRN PRN Reason: Heartburn Clonazepam (Clonazepam 1 Mg Tablet) 1 mg PO BEDTIME [facility] Last Admin: 12/04/24 20:07 Dose: 1 mg Documented By: LEATHA Clonazepam (Clonazepam 1 Mg Tablet) 1 mg PO Q4H PRN PRN Reason: Anxiety Last Admin: 12/05/24 12:56 Dose: 1 mg Documented By: MAMIE Enoxaparin Sodium (Enoxaparin Sodium 40 Mg/0.4 Ml Syringe) 40 mg SUBCUT Q24H [facility] Last Admin: 12/04/24 16:26 Dose: Not Given Documented By: ANNABEL Non-Admin Reason: Patient Refused Fluphenazine HCl (Fluphenazine Hcl 5 Mg Tablet) 15 mg PO BID [facility] Last Admin: 12/05/24 07:47 Dose: 15 mg Documented By: ADRIEL Gabapentin (Gabapentin 300 Mg Capsule) 300 mg PO TID [facility] Last Admin: 12/02/24 08:11 Dose: 300 mg Documented By: UNRULY Gabapentin (Gabapentin 400 Mg Capsule) 400 mg PO TID [facility] Last Admin: 12/05/24 13:59 Dose: 400 mg Documented By: MAMIE Piperacillin Sod/Tazobactam (Sod 3.375 gm/ Sodium Chloride) 50 mls @ 100 mls/hr IV Q6H [facility] Last Admin: 12/05/24 16:08 Dose: 100 mls/hr Documented By: MAMIE Daptomycin 490 mg/ Sodium (Chloride) 59.8 mls @ 100 mls/hr IV Q24H [facility] Last Infusion: 12/05/24 13:07 Dose: Infused Documented By: MAMIE Magnesium Hydroxide (Milk Of Magnesia 30 Ml Oral.Susp) 30 ml PO DAILY PRN PRN Reason: Constipation Melatonin (Melatonin 3 Mg Tablet) 6 mg PO BEDTIME PRN PRN Reason: Insomnia Methadone HCl (Methadone Hcl 20 Mg/2 Ml Oral.Conc) 170 mg PO DAILY [facility] Last Admin: 12/05/24 07:47 Dose: 170 mg Documented By: ADRIEL Co-signed By: BOB Multivitamins/Vitamin C (Multivitamin Tablet) 1 tab PO DAILY [facility] Last Admin: 12/05/24 07:48 Dose: 1 tab Documented By: ADRIEL Nicotine (Nicotine 21 Mg Patch.Td24) 21 mg TRANSDERMA DAILY [facility] Last Admin: 12/05/24 07:39 Dose: Not Given Documented By: ADRIEL Non-Admin Reason: Patient Refused Nicotine Polacrilex (Nicotine Polacrilex 2 Mg Gum) 4 mg BUCCAL Q2H PRN PRN Reason: Smoking Cessation Last Admin: 12/05/24 08:43 Dose: 4 mg Documented By: MAMIE Olanzapine (Olanzapine 5 Mg Tablet) 5 mg PO BEDTIME PRN PRN Reason: Psychosis Olanzapine (Olanzapine 10 Mg Tablet) 20 mg PO BEDTIME [facility] Last Admin: 12/04/24 20:08 Dose: Not Given Documented By: LEATHA Non-Admin Reason: Patient Refused Ondansetron HCl (Ondansetron Hcl 4 Mg/2 Ml Vial) 4 mg IVPUSH Q8H PRN PRN Reason: Nausea and Vomiting Oxycodone HCl (Oxycodone Hcl Immed Release 5 Mg Tablet) 5 mg PO Q6H PRN PRN Reason: Pain, Moderate(Pain Scale 4-6) Last Admin: 12/05/24 13:59 Dose: 5 mg Documented By: MAMIE Quetiapine Fumarate (Quetiapine Fumarate 50 Mg Tablet) 50 mg PO BEDTIME PRN PRN Reason: Sleep Sodium Chloride (0.9 % Sodium Chloride Flush 3 Ml Syringe) 3 ml IVFLUSH QSHIFT [facility] Last Admin: 12/05/24 16:10 Dose: Not Given Documented By: MAMIE Non-Admin Reason: IV Running Trazodone HCl (Trazodone Hcl 50 Mg Tablet) 50 mg PO BEDTIME MRX1 PRN PRN Reason: Insomnia Last Admin: 12/01/24 23:13 Dose: 50 mg Documented By: GOYO Labs 12/03/24 10:40 12/05/24 05:32 Labs: Laboratory Results - last 24 hr 12/05/24 05:32 Estim Creat Clear Calc 182.2 Estimated GFR > 60 Assessment and Plan (1) Avascular necrosis of bones of both hips: Status: Acute (2) Cellulitis of left foot: Status: Acute (3) Foot osteomyelitis, left: Status: Acute (4) Cellulitis of foot, right: Status: Acute (5) Schizophrenia, paranoid, chronic with acute exacerbation: Status: Acute Plan A 34 years old male with PMH of opiates dependence, schizophrenia, neuropathy, Hx IVDU among others presenting to ED with lower extremities wounds. Cellulitis of LLE with acute on chronic osteomyelitis of big toe Prev images concerning for chronic Osteomyelitis on distal phalanx, patient refused amputation then Not septic PEnding cultures have been refusing Vancomycin trough testing. To DC IV VAncomycin Continue with Daptomycin and Zosyn for now ID suggest no need for MRI , best treatment should be amputation of the chronic OM. For now use IV while inpatient and to treat as outpatient with Zyvox but can not as it carries high risk of serotonin syndrome giving rest of his medications. can do Doxycyclin instead on discharge surgery consults, debridement done, to be followed Acute Toxic encephalopathy related to polypharmacy improving Decrease Gabapentin Decrease Lorazepam monitor other meds and his mental status, recurrent redirection Avascular necrosis head of femur Seen on XR Hip orthopedic eval, no intervention now, outpatient follow up Opioid dependence on MEthadone , continue Peripheral neuropathy Gabapentin Hx Schizophrenia resume Olanzapine DVT PPx Lovenox The patient will need overnight hopsital stay for treatment of lower extremity cellulitis with concern of Osteomyelitis pending MRI and specialist evaluation. Quality Stroke Does the patient have a stroke diagnosis?: No VTE Prior VTE?: No VTE Risk Level:: Medical - moderate - high VTE Device Contraindication: Treatment Not Indicated VTE Drug Contraindication: N/A - Med Ordered
[2024-12-05 19:14] VITALS: BP 112/76; PULSE 88; RESP 16; TEMP 36.9; O2SAT 94
--- NOTE | 2024-12-05 21:37 | PC.NURSE ---
Addendum entered by Yashira Masterson RN 12/06/24 06:04: 06:00 hour: Patient rang and requested oxycodone and nicotine gum. Apns discussed importance of obtaining vitals with this patient who was agreeable to obtaining vitals at this time. MD written orders for no treatment of HR unless sustains >140's. Pt remains asymptomatic; only complaint offered by pt at this time is pain in the bilateral lower legs. Pt was medicated per his request. Addendum entered by Yashira Masterson RN 12/06/24 03:36: Apns notified by CONDUCTOR AND ENGINEER that this patient was refusing scheduled vitals. Apns presented to the bedside and discussed importance of vitals in maintaining safety and well-being with this patient. Despite this, the pt continued to refuse vitals and was vague and would not offer a rationale for refusing, but simply stated I will do them on the next round later maybe in the morning . Covering Dr. Robertson notified. Addendum entered by Yashira Masterson RN 12/06/24 00:13: MD notified of vitals obtained this hour. Patient denies symptoms. Skin normothermic, pt afebrile. MD advised no interventions at this time. Addendum entered by Yashira Masterson RN 12/06/24 00:06: Apns attempted to offer remaining 21:00 scheduled medications to this patient at this time as per below previous discussion with the patient. Patient continues to refuse these meds, stated to this fiction and nonfiction writer prose I think I'm just going to burn the midnight oil tonight . Apns educated patient on importance of these medications and maintaining day/night schedule. Covering Dr. Robertson was notified. Original Note: Patient refusing most 21:00 meds except gabapentin and prn oxycodone. Pt stated I don't know. Try to ask me again around midnight . Pt refuses bed and chair alarms, assistance OOB. Safety measures continue.
[2024-12-05 22:07] VITALS: RESP 18
[2024-12-06] VITALS (8 sets, daily range): BP systolic 95–110; BP diastolic 56–64; PULSE 88–121; RESP 16–18; TEMP 36–37.1; O2SAT 94–98
[2024-12-06] MEDS: oxyCODONE HCl Immed Release 5 MG TABLET PO ×4 (06:01→23:00)
[2024-12-06] MEDS: Nicotine Polacrilex 2 MG GUM 4 MG BUCCAL ×5 (06:02→23:40)
[2024-12-06 06:42] LABS: Estimated Glomerular Filt Rate > 60
[2024-12-06] MEDS: methADONE HCl 20 MG/2 ML ORAL.CONC 170 MG PO (08:25)
[2024-12-06] MEDS: Gabapentin 400 MG CAPSULE PO ×3 (08:26→20:03)
[2024-12-06] MEDS: Dextroamphetamine/Amphetamine XR 5 MG CAP.ER.24H PO (08:26)
--- NOTE | 2024-12-06 08:35 | MHC.CM.PN ---
CARE TEAM ASSESSMENT/CLEARANCE FOR STR [facility].
[2024-12-06] MEDS: DAPTOMYCIN IV (11:09)
[2024-12-06] MEDS: SODIUM CHLORIDE 0.9% IV (11:09)
--- NOTE | 2024-12-06 12:07 | MHC.CM.PN ---
Addendum entered by Mónica Carias RN 12/06/24 14:45: CM HAS RECEIVED NO CALL BACK FROM [facility], CM ATTMEPTED TO CALL AGAIN AT 2:35PM, A SECOND DETAILED MESSAGE LEFT W/REQUEST FOR CALL BACK. PT WILL HAVE PICC LINE PLACED, PT WILL HAVE DAPTO 490MG IV Q24HRS UNTIL 01/11/25. [facility] TO SUBMIT FOR AUTH W/CARVE OUT FOR DAPTO. Original Note: CM MET W/PT TO CONFIRM HE IS WILLING TO GO TO [facility], PT AGREEABLE AND ALSO AGREEABLE TO CONT PLASTICATOR IV DAPTO, HOSPITALIST AWARE AND WILL ORDER PICC LINE, [facility] WILL SUBMIT FOR AUTH AND CM HAS STARTED PROCESS FOR GUEST DOSING AND CONTACTED [facility] [phone], REQUESTED DOCUMENTS H&P, LABS AND METHADONE DOSING FAXED TO [facility] AT [phone], CM HAS ATTEMPTED TO CONTACT PT'S HOME CLINIC [facility] ON [address] [phone] DETAILED MESSAGE LEFT, CM TO REVISIT IF NO RESPONSE.
--- NOTE | 2024-12-06 12:10 | MHC.CARE ---
Pt was assessed by the CARE Team and found to not meet IPLOC. Pt is not presenting as imminent risk to himself or others. Plan for Pt to be referred to case management .
[2024-12-06] MEDS: clonazePAM 1 MG TABLET PO ×3 (12:46→20:03)
--- NOTE | 2024-12-06 14:36 | HO.PM.IMPN ---
Subjective Subjective Date of Service: 12/06/24 Interval History: seen and evaluated alert and interactive left foot covered with dressing reporting pain in LEs Review of Systems Review of Systems: Yes all other systems are reviewed and are negative Physical Exam Vital Signs: Vital Signs: Last Vital Signs Temp 97.8 F 12/06/24 11:47 Pulse 95 12/06/24 12:29 Resp 17 12/06/24 11:47 BP 95/64 12/06/24 11:47 Pulse Ox 98 12/06/24 11:47 O2 Del Method Room Air 12/06/24 11:47 BMI result Body Mass Index 23.1 Const: Other: Constitutional : sleepy, looks sedated, not in distress Neck : Normal inspection, Supple Cardiovascular : RRR, no JVP, no lower extremity edema Respiratory : good bilateral air entry, no crackles, wheezes or rhonchi Gastrointestinal: soft, lax, Normal bowel sounds, Non tender Skin : Warm, Dry, LLE erythema improving covered with dressing , open wound in big toe packed and covered, Right big toe ulcer with surrounding erythema improving Neurological : Alert with stimulation & oriented x3, No focal deficit Objective Data Active Medications Acetaminophen (Acetaminophen 325 Mg Tablet) 650 mg PO Q6H PRN PRN Reason: Pain, Mild 1-3,fever,headache Last Admin: 12/01/24 20:04 Dose: 650 mg Documented By: GOYO Amphetamine/Dextroamphetamine (Dextroamphetamine/Amphetamine Xr 5 Mg Cap.Er.24h) 5 mg PO DAILY [facility] Last Admin: 12/06/24 08:26 Dose: 5 mg Documented By: MAMIE Calcium Carbonate (Calcium Carbonate 750 Mg Tab.Chew) 750 mg PO Q4H PRN PRN Reason: Heartburn Clonazepam (Clonazepam 1 Mg Tablet) 1 mg PO BEDTIME [facility] Last Admin: 12/06/24 00:06 Dose: Not Given Documented By: VINH Non-Admin Reason: Patient Refused Clonazepam (Clonazepam 1 Mg Tablet) 1 mg PO Q4H PRN PRN Reason: Anxiety Last Admin: 12/06/24 12:46 Dose: 1 mg Documented By: MAMIE Enoxaparin Sodium (Enoxaparin Sodium 40 Mg/0.4 Ml Syringe) 40 mg SUBCUT Q24H [facility] Last Admin: 12/05/24 16:57 Dose: Not Given Documented By: MAMIE Non-Admin Reason: Patient Refused Fluphenazine HCl (Fluphenazine Hcl 5 Mg Tablet) 15 mg PO BID [facility] Last Admin: 12/06/24 08:28 Dose: Not Given Documented By: MAMIE Non-Admin Reason: Patient Refused Gabapentin (Gabapentin 300 Mg Capsule) 300 mg PO TID [facility] Last Admin: 12/02/24 08:11 Dose: 300 mg Documented By: UNRULY Gabapentin (Gabapentin 400 Mg Capsule) 400 mg PO TID [facility] Last Admin: 12/06/24 08:26 Dose: 400 mg Documented By: MAMIE Daptomycin 490 mg/ Sodium (Chloride) 59.8 mls @ 100 mls/hr IV Q24H [facility] Last Infusion: 12/06/24 12:14 Dose: Infused Documented By: MAMIE Magnesium Hydroxide (Milk Of Magnesia 30 Ml Oral.Susp) 30 ml PO DAILY PRN PRN Reason: Constipation Melatonin (Melatonin 3 Mg Tablet) 6 mg PO BEDTIME PRN PRN Reason: Insomnia Methadone HCl (Methadone Hcl 20 Mg/2 Ml Oral.Conc) 170 mg PO DAILY [facility] Last Admin: 12/06/24 08:25 Dose: 170 mg Documented By: MAMIE Co-signed By: SELVIN Multivitamins/Vitamin C (Multivitamin Tablet) 1 tab PO DAILY [facility] Last Admin: 12/06/24 08:28 Dose: Not Given Documented By: MAMIE Non-Admin Reason: Patient Refused Nicotine (Nicotine 21 Mg Patch.Td24) 21 mg TRANSDERMA DAILY [facility] Last Admin: 12/06/24 08:42 Dose: Not Given Documented By: MAMIE Non-Admin Reason: Patient Refused Nicotine Polacrilex (Nicotine Polacrilex 2 Mg Gum) 4 mg BUCCAL Q2H PRN PRN Reason: Smoking Cessation Last Admin: 12/06/24 13:27 Dose: 4 mg Documented By: MARIANA Olanzapine (Olanzapine 5 Mg Tablet) 5 mg PO BEDTIME PRN PRN Reason: Psychosis Olanzapine (Olanzapine 10 Mg Tablet) 20 mg PO BEDTIME [facility] Last Admin: 12/06/24 00:06 Dose: Not Given Documented By: VINH Non-Admin Reason: Patient Refused Ondansetron HCl (Ondansetron Hcl 4 Mg/2 Ml Vial) 4 mg IVPUSH Q8H PRN PRN Reason: Nausea and Vomiting Oxycodone HCl (Oxycodone Hcl Immed Release 5 Mg Tablet) 5 mg PO Q6H PRN PRN Reason: Pain, Moderate(Pain Scale 4-6) Last Admin: 12/06/24 11:09 Dose: 5 mg Documented By: MAMIE Quetiapine Fumarate (Quetiapine Fumarate 50 Mg Tablet) 50 mg PO BEDTIME PRN PRN Reason: Sleep Sodium Chloride (0.9 % Sodium Chloride Flush 3 Ml Syringe) 3 ml IVFLUSH QSHIFT [facility] Last Admin: 12/06/24 08:32 Dose: Not Given Documented By: MAMIE Non-Admin Reason: Previously Administered Trazodone HCl (Trazodone Hcl 50 Mg Tablet) 50 mg PO BEDTIME MRX1 PRN PRN Reason: Insomnia Last Admin: 12/01/24 23:13 Dose: 50 mg Documented By: GOYO Labs 12/03/24 10:40 12/06/24 06:00 Labs: Laboratory Results - last 24 hr 12/06/24 06:00 Estim Creat Clear Calc 185.0 Estimated GFR > 60 Assessment and Plan (1) Avascular necrosis of bones of both hips: Status: Acute (2) Cellulitis of left foot: Status: Acute (3) Foot osteomyelitis, left: Status: Acute Plan A 34 years old male with PMH of opiates dependence, schizophrenia, neuropathy, Hx IVDU among others presenting to ED with lower extremities wounds. Cellulitis of LLE with acute on chronic osteomyelitis of big toe Prev images concerning for chronic Osteomyelitis on distal phalanx, patient refused amputation then Not septic PEnding cultures have been refusing Vancomycin trough testing. To DC IV VAncomycin Continue with Daptomycin for now ID suggest no need for MRI , best treatment should be amputation of the chronic OM. as the patient is agreeble for IV PICC line we can treat for 6 weeks of IV Daptomycin (PO Doxycycline if he refuses IV treatment) surgery consults, debridement done, to be followed Acute Toxic encephalopathy related to polypharmacy improving Decrease Gabapentin Decrease Lorazepam monitor other meds and his mental status, recurrent redirection Avascular necrosis head of femur Seen on XR Hip orthopedic eval, no intervention now, outpatient follow up PT eval, needs SNF placement for rehab Opioid dependence on MEthadone , continue Peripheral neuropathy Gabapentin Hx Schizophrenia resume Olanzapine DVT PPx Lovenox The patient will need overnight hopsital stay for treatment of lower extremity cellulitis with concern of chronic Osteomyelitis on IV antibiotics Quality Stroke Does the patient have a stroke diagnosis?: No VTE Prior VTE?: No VTE Risk Level:: Medical - moderate - high VTE Device Contraindication: Treatment Not Indicated VTE Drug Contraindication: N/A - Med Ordered
--- NOTE | 2024-12-06 22:05 | PM.EVENT ---
Event Note Date of Service: 12/06/24 Event Note: 6 weeks IV Vancomycin treat OM feet Check weekly troughs and creatinine Time Spent With Patient Time: Total time managing care of this patient today ____ minutes.
[2024-12-06] MEDS: 0.9 % Sodium Chloride Flush 3 ML SYRINGE IVFLUSH (23:01)
[2024-12-07 03:28] VITALS: BP 99/52; PULSE 96; RESP 16; TEMP 36.3; O2SAT 98
[2024-12-07] MEDS: Nicotine Polacrilex 2 MG GUM 4 MG BUCCAL ×3 (04:23→21:24)
[2024-12-07] MEDS: clonazePAM 1 MG TABLET PO ×2 (04:26→14:51)
--- NOTE | 2024-12-07 05:33 | PC.NURSE ---
This RN assumed care at 1900, pt reports 10/10 pain to left foot, meds given per oct. Pt AOx4, lethargic and mumbles/unclear when talking with eyes closed. Lungs clear and respirations even, BSx4, cellulitis to left Great toe, MAXX/gauze wrap CDI, non-pitting edema noted to left foot,+pedal pulse to R foot, unable to assess left d/t maxx wrap. Standby with walker to BR, VSS, no distress noted at this time, call alfredo within reach.
[2024-12-07] MEDS: oxyCODONE HCl Immed Release 5 MG TABLET PO ×4 (06:22→20:38)
[2024-12-07 07:33] LABS: Estimated Glomerular Filt Rate > 60
[2024-12-07 07:36] VITALS: BP 109/67; PULSE 83; RESP 17; TEMP 36.4; O2SAT 95
[2024-12-07] MEDS: methADONE HCl 20 MG/2 ML ORAL.CONC 170 MG PO (08:21)
[2024-12-07] MEDS: Gabapentin 400 MG CAPSULE PO ×3 (08:22→20:39)
[2024-12-07] MEDS: Multivitamin TABLET 1 TAB PO (08:22)
[2024-12-07] MEDS: Dextroamphetamine/Amphetamine XR 5 MG CAP.ER.24H PO (08:22)
[2024-12-07] MEDS: Nicotine 21 MG PATCH.TD24 TRANSDERMA (08:22)
[2024-12-07] MEDS: 0.9 % Sodium Chloride Flush 3 ML SYRINGE IVFLUSH ×3 (08:27→22:35)
--- NOTE | 2024-12-07 09:07 | MHC.CM.PN ---
CM CONTACTED PT'S CLINICIAN BRIDGETTE AT [facility] O[facility] AND [facility] SIGNED BY PT AND FAXED TO [phone], PT AWAITING PICC LINE, INSURANCE AUTH W/CARVE OUT FOR DAPTO AND CONFIRMATION OF GUEST DOSING. CM WILL CONT TO FOLLOW DC NEEDS.
[2024-12-07 11:38] VITALS: BP 107/76; PULSE 101; RESP 18; TEMP 36.3; O2SAT 95
[2024-12-07] MEDS: SODIUM CHLORIDE 0.9% IV (12:01)
[2024-12-07] MEDS: DAPTOMYCIN IV (12:01)
--- NOTE | 2024-12-07 12:20 | P.PNIM_ITS ---
Subjective Subjective Date of Service: 12/07/24 Interval History: seen and evaluated alert and interactive left foot covered with dressing reporting pain in LEs Review of Systems Review of Systems: Yes all other systems are reviewed and are negative Physical Exam 2 Vital Signs: Vital Signs: Last Vital Signs Temp 97.3 F 12/07/24 11:38 Pulse 101 H 12/07/24 11:38 Resp 18 12/07/24 11:38 BP 107/76 12/07/24 11:38 Pulse Ox 95 12/07/24 11:38 O2 Del Method Room Air 12/07/24 11:38 BMI result Body Mass Index 23.1 Const: Other: Constitutional : sleepy, looks sedated, not in distress Neck : Normal inspection, Supple Cardiovascular : RRR, no JVP, no lower extremity edema Respiratory : good bilateral air entry, no crackles, wheezes or rhonchi Gastrointestinal: soft, lax, Normal bowel sounds, Non tender Skin : Warm, Dry, LLE erythema improving covered with dressing , open wound in big toe packed and covered, Right big toe ulcer with surrounding erythema improving Neurological : Alert with stimulation & oriented x3, No focal deficit Objective Data Active Medications Acetaminophen (Acetaminophen 325 Mg Tablet) 650 mg PO Q6H PRN PRN Reason: Pain, Mild 1-3,fever,headache Last Admin: 12/01/24 20:04 Dose: 650 mg Documented By: GOYO Amphetamine/Dextroamphetamine (Dextroamphetamine/Amphetamine Xr 5 Mg Cap.Er.24h) 5 mg PO DAILY [facility] Last Admin: 12/07/24 08:22 Dose: 5 mg Documented By: JAZZ Calcium Carbonate (Calcium Carbonate 750 Mg Tab.Chew) 750 mg PO Q4H PRN PRN Reason: Heartburn Clonazepam (Clonazepam 1 Mg Tablet) 1 mg PO Q4H PRN PRN Reason: anxiety/restlessness Clonazepam (Clonazepam 1 Mg Tablet) 2 mg PO BID PRN PRN Reason: Insomnia, anxiety Enoxaparin Sodium (Enoxaparin Sodium 40 Mg/0.4 Ml Syringe) 40 mg SUBCUT Q24H [facility] Last Admin: 12/06/24 16:13 Dose: Not Given Documented By: MAMIE Non-Admin Reason: Patient Refused Fluphenazine HCl (Fluphenazine Hcl 5 Mg Tablet) 15 mg PO BID [facility] Last Admin: 12/07/24 08:25 Dose: Not Given Documented By: JAZZ Non-Admin Reason: Patient Refused Gabapentin (Gabapentin 300 Mg Capsule) 300 mg PO TID [facility] Last Admin: 12/02/24 08:11 Dose: 300 mg Documented By: UNRULY Gabapentin (Gabapentin 400 Mg Capsule) 400 mg PO TID [facility] Last Admin: 12/07/24 08:22 Dose: 400 mg Documented By: JAZZ Daptomycin 490 mg/ Sodium (Chloride) 59.8 mls @ 100 mls/hr IV Q24H [facility] Last Admin: 12/07/24 12:01 Dose: 100 mls/hr Documented By: JAZZ Magnesium Hydroxide (Milk Of Magnesia 30 Ml Oral.Susp) 30 ml PO DAILY PRN PRN Reason: Constipation Melatonin (Melatonin 3 Mg Tablet) 6 mg PO BEDTIME PRN PRN Reason: Insomnia Methadone HCl (Methadone Hcl 20 Mg/2 Ml Oral.Conc) 170 mg PO DAILY [facility] Last Admin: 12/07/24 08:21 Dose: 170 mg Documented By: JAZZ Co-signed By: MARIANA Multivitamins/Vitamin C (Multivitamin Tablet) 1 tab PO DAILY [facility] Last Admin: 12/07/24 08:22 Dose: 1 tab Documented By: JAZZ Nicotine (Nicotine 21 Mg Patch.Td24) 21 mg TRANSDERMA DAILY [facility] Last Admin: 12/07/24 08:22 Dose: 21 mg Documented By: JAZZ Nicotine Polacrilex (Nicotine Polacrilex 2 Mg Gum) 4 mg BUCCAL Q2H PRN PRN Reason: Smoking Cessation Last Admin: 12/07/24 08:22 Dose: 4 mg Documented By: JAZZ Olanzapine (Olanzapine 5 Mg Tablet) 5 mg PO BEDTIME PRN PRN Reason: Psychosis Olanzapine (Olanzapine 10 Mg Tablet) 20 mg PO BEDTIME [facility] Last Admin: 12/06/24 23:03 Dose: Not Given Documented By: REGGIE Non-Admin Reason: Patient Refused Ondansetron HCl (Ondansetron Hcl 4 Mg/2 Ml Vial) 4 mg IVPUSH Q8H PRN PRN Reason: Nausea and Vomiting Oxycodone HCl (Oxycodone Hcl Immed Release 5 Mg Tablet) 5 mg PO Q6H PRN PRN Reason: Pain, Moderate(Pain Scale 4-6) Last Admin: 12/07/24 12:10 Dose: 5 mg Documented By: JAZZ Quetiapine Fumarate (Quetiapine Fumarate 50 Mg Tablet) 50 mg PO BEDTIME PRN PRN Reason: Sleep Sodium Chloride (0.9 % Sodium Chloride Flush 3 Ml Syringe) 3 ml IVFLUSH QSHIFT [facility] Last Admin: 12/07/24 08:27 Dose: 3 ml Documented By: JAZZ Trazodone HCl (Trazodone Hcl 50 Mg Tablet) 50 mg PO BEDTIME MRX1 PRN PRN Reason: Insomnia Last Admin: 12/01/24 23:13 Dose: 50 mg Documented By: BOURQC Labs 12/03/24 10:40 12/07/24 06:09 Labs: Laboratory Results - last 24 hr 12/07/24 06:09 Hold Purple Top SEE NOTE Estim Creat Clear Calc 211.0 Estimated GFR > 60 Microbiology Microbiology Results: Microbiology 12/01/24 15:25 Blood Culture - Final Blood - Venous No growth after 5 days. 12/01/24 13:04 Blood Culture - Final Blood - Venous No growth after 5 days. Assessment and Plan (1) Avascular necrosis of bones of both hips: Status: Acute (2) Cellulitis of left foot: Status: Acute (3) Foot osteomyelitis, left: Status: Acute Plan A 34 years old male with PMH of opiates dependence, schizophrenia, neuropathy, Hx IVDU among others presenting to ED with lower extremities wounds. Cellulitis of LLE with acute on chronic osteomyelitis of big toe Prev images concerning for chronic Osteomyelitis on distal phalanx, patient refused amputation then Not septic PEnding cultures have been refusing Vancomycin trough testing. To DC IV VAncomycin Continue with Daptomycin for now ID suggest no need for MRI , best treatment should be amputation of the chronic OM. as the patient is agreeble for IV PICC line we can treat for 6 weeks of IV Daptomycin (PO Doxycycline if he refuses IV treatment as Zyvox carries higher risk of Serotonin syndrome with rest of his meds) surgery consults, debridement done, to be followed at wound clinic Acute Toxic encephalopathy related to polypharmacy improving Decrease Gabapentin Decrease Lorazepam monitor other meds and his mental status, recurrent redirection Avascular necrosis head of femur Seen on XR Hip orthopedic eval, no intervention now, outpatient follow up PT eval, needs SNF placement for rehab Opioid dependence on MEthadone , continue Peripheral neuropathy Gabapentin Hx Schizophrenia resume Olanzapine DVT PPx Lovenox The patient will need overnight hopsital stay for treatment of lower extremity cellulitis with concern of chronic Osteomyelitis on IV antibiotics Quality Stroke Does the patient have a stroke diagnosis?: No VTE Prior VTE?: No VTE Risk Level:: Medical - moderate - high VTE Device Contraindication: Treatment Not Indicated VTE Drug Contraindication: N/A - Med Ordered
[2024-12-07] MEDS: clonazePAM 1 MG TABLET 2 MG PO ×2 (12:21→21:24)
--- NOTE | 2024-12-07 15:50 | P.PICC_ITS ---
PICC Line Insertion NPICC INSERTION Diagnosis: LEFT FOOT OSTEOMYELITIS Indication: 6 WEEKS ANTIBX Pertinent Labs: REVIEWED Technique: Following informed consent including risks, benefits and alternatives and using sterile technique including cap and mask, sterile gown, glove and drape, the RIGHT arm was prepped and draped in the usual sterile fashion of full barrier technique with [facility]. Following completion of [place] Protocol the skin and soft tissues were anesthetized with 1% Lidocaine plain. Using ultrasound guidance, RIGHT BRACHIAL vein access was obtained. Over an 0.018 wire through peel-away sheath, a 4FR POWERPICC PASV PICC line was positioned. Catheter length is 42CM internal length, 0CM external length, for a total trimmed length of 42CM. The procedure was performed in RM 272. Tip verification was performed by Priya Mendoza with Sherlock 3CG. Tip located in SVC. Ultrasound was used to document vein patency and for needle entry. A formal ultrasound picture and cardiac rhythm strip was recorded. Vascular Lead Burner Supervisor has released the line for use and it is currently dressed with a StatLock, Tegaderm, and CHG disc. Verification has been performed for blood return and line patency. Arm Circumference: 31CM Equipment: [employer] POWERPICC SOLO CATHETER WITH SHERLOCK 3CG TIP Catheter Type: 4FR POWERPICC PASV PICC LINE Lot #: [id number]
--- NOTE | 2024-12-07 16:13 | PC.NURSE ---
Pt refusing dressing changes, MD Vidal made aware.
[2024-12-07 17:46] VITALS: BP 94/56; PULSE 85
[2024-12-07] MEDS: 0.9 % Sodium Chloride Flush 10 ML SYRINGE 5 ML IVFLUSH ×2 (17:49→22:35)
[2024-12-07 20:00] VITALS: BP 98/53; PULSE 93; RESP 18; TEMP 37.3; O2SAT 96
--- NOTE | 2024-12-08 02:31 | PC.NURSE ---
Addendum entered by Leida Herrera RN 12/08/24 04:21: Dr. Robertson made aware, and agrees not give medication. Original Note: pt requesting 2 mg Klonopin, that is BID and not due till 929, pt offered 1mg Klonopin but refuses and also wants his 5mg Oxy right after. This RN and MILI Saxena explained to pt that the 2mg Klonopin is BID which means every 12 hours, and that I do not feel comfortable giving pt both. Pt reports that You are going against doctors orders, and I am going to call my mom to report you. Crts Antonia made aware.
[2024-12-08] MEDS: oxyCODONE HCl Immed Release 5 MG TABLET PO ×4 (02:54→21:53)
[2024-12-08 03:20] VITALS: BP 112/56; PULSE 93; RESP 14; TEMP 36.1; O2SAT 97
[2024-12-08] MEDS: Nicotine Polacrilex 2 MG GUM 4 MG BUCCAL ×4 (06:25→16:40)
--- NOTE | 2024-12-08 06:35 | PC.NURSE ---
Pt requesting pain meds about every 2 hours, when he cannot even open his eyes to have a conversation, and knocking urinal off of bedside table.
[2024-12-08 08:03] VITALS: BP 99/55; PULSE 87; RESP 12; TEMP 36.8; O2SAT 97
[2024-12-08] MEDS: clonazePAM 1 MG TABLET 2 MG PO ×2 (09:07→21:52)
[2024-12-08] MEDS: Gabapentin 400 MG CAPSULE PO ×3 (09:09→21:53)
[2024-12-08] MEDS: Nicotine 21 MG PATCH.TD24 TRANSDERMA (09:09)
[2024-12-08] MEDS: methADONE HCl 20 MG/2 ML ORAL.CONC 170 MG PO (09:09)
[2024-12-08] MEDS: Dextroamphetamine/Amphetamine XR 5 MG CAP.ER.24H PO (09:10)
[2024-12-08] MEDS: 0.9 % Sodium Chloride Flush 3 ML SYRINGE IVFLUSH (09:15)
[2024-12-08] MEDS: clonazePAM 1 MG TABLET PO ×2 (11:42→16:40)
[2024-12-08 11:43] VITALS: BP 97/61; PULSE 99; RESP 12; TEMP 36.3; O2SAT 97
[2024-12-08] MEDS: DAPTOMYCIN IV (12:12)
[2024-12-08] MEDS: SODIUM CHLORIDE 0.9% IV (12:12)
--- NOTE | 2024-12-08 14:45 | P.PNIM_ITS ---
Subjective Subjective Date of Service: 12/08/24 Interval History: no acute issues overnight. Still remains quite anxious Review of Systems denies chest pain Denies shortness of breath Denies nausea vomiting diarrhea Denies fever chills Physical Exam 2 Vital Signs: Vital Signs: Last Vital Signs Temp 97.3 F 12/08/24 11:43 Pulse 99 12/08/24 11:43 Resp 12 12/08/24 11:43 BP 97/61 12/08/24 11:43 Pulse Ox 97 12/08/24 11:43 O2 Del Method Room Air 12/08/24 11:43 BMI result Body Mass Index 23.1 Const: Other: awake alert no acute distress Resp: Other: clear to auscultation bilaterally no rales rhonchi or wheezes Cardio: Other: no S4; positive S1-S2; no S3 murmurs rubs gallops GI: Other: soft nontender nondistended normoactive bowel sounds Extrem: Other: no edema bilaterally Objective Data Active Medications Acetaminophen (Acetaminophen 325 Mg Tablet) 650 mg PO Q6H PRN PRN Reason: Pain, Mild 1-3,fever,headache Last Admin: 12/01/24 20:04 Dose: 650 mg Documented By: GOYO Amphetamine/Dextroamphetamine (Dextroamphetamine/Amphetamine Xr 5 Mg Cap.Er.24h) 5 mg PO DAILY [facility] Last Admin: 12/08/24 09:10 Dose: 5 mg Documented By: EMIR Calcium Carbonate (Calcium Carbonate 750 Mg Tab.Chew) 750 mg PO Q4H PRN PRN Reason: Heartburn Clonazepam (Clonazepam 1 Mg Tablet) 1 mg PO Q4H PRN PRN Reason: anxiety/restlessness Last Admin: 12/08/24 11:42 Dose: 1 mg Documented By: EMIR Clonazepam (Clonazepam 1 Mg Tablet) 2 mg PO BID PRN PRN Reason: Insomnia, anxiety Last Admin: 12/08/24 09:07 Dose: 2 mg Documented By: EMIR Enoxaparin Sodium (Enoxaparin Sodium 40 Mg/0.4 Ml Syringe) 40 mg SUBCUT Q24H [facility] Last Admin: 12/07/24 16:53 Dose: Not Given Documented By: JAZZ Non-Admin Reason: Patient Refused Fluphenazine HCl (Fluphenazine Hcl 5 Mg Tablet) 15 mg PO BID [facility] Last Admin: 12/08/24 09:08 Dose: Not Given Documented By: EMIR Non-Admin Reason: Patient Refused Gabapentin (Gabapentin 300 Mg Capsule) 300 mg PO TID [facility] Last Admin: 12/02/24 08:11 Dose: 300 mg Documented By: UNRULY Gabapentin (Gabapentin 400 Mg Capsule) 400 mg PO TID [facility] Last Admin: 12/08/24 09:09 Dose: 400 mg Documented By: EMIR Daptomycin 490 mg/ Sodium (Chloride) 59.8 mls @ 100 mls/hr IV Q24H [facility] Last Infusion: 12/08/24 13:01 Dose: Infused Documented By: EMIR Magnesium Hydroxide (Milk Of Magnesia 30 Ml Oral.Susp) 30 ml PO DAILY PRN PRN Reason: Constipation Melatonin (Melatonin 3 Mg Tablet) 6 mg PO BEDTIME PRN PRN Reason: Insomnia Methadone HCl (Methadone Hcl 20 Mg/2 Ml Oral.Conc) 170 mg PO DAILY [facility] Last Admin: 12/08/24 09:09 Dose: 170 mg Documented By: EMIR Co-signed By: VINEET Multivitamins/Vitamin C (Multivitamin Tablet) 1 tab PO DAILY [facility] Last Admin: 12/08/24 09:18 Dose: Not Given Documented By: EMIR Non-Admin Reason: Patient Refused Nicotine (Nicotine 21 Mg Patch.Td24) 21 mg TRANSDERMA DAILY [facility] Last Admin: 12/08/24 09:09 Dose: 21 mg Documented By: EMIR Nicotine Polacrilex (Nicotine Polacrilex 2 Mg Gum) 4 mg BUCCAL Q2H PRN PRN Reason: Smoking Cessation Last Admin: 12/08/24 11:51 Dose: 4 mg Documented By: EMIR Olanzapine (Olanzapine 5 Mg Tablet) 5 mg PO BEDTIME PRN PRN Reason: Psychosis Olanzapine (Olanzapine 10 Mg Tablet) 20 mg PO BEDTIME [facility] Last Admin: 12/07/24 23:24 Dose: Not Given Documented By: REGGIE Non-Admin Reason: Patient Refused Ondansetron HCl (Ondansetron Hcl 4 Mg/2 Ml Vial) 4 mg IVPUSH Q8H PRN PRN Reason: Nausea and Vomiting Oxycodone HCl (Oxycodone Hcl Immed Release 5 Mg Tablet) 5 mg PO Q6H PRN PRN Reason: Pain, Moderate(Pain Scale 4-6) Last Admin: 12/08/24 09:09 Dose: 5 mg Documented By: EMIR Quetiapine Fumarate (Quetiapine Fumarate 50 Mg Tablet) 50 mg PO BEDTIME PRN PRN Reason: Sleep Sodium Chloride (0.9 % Sodium Chloride Flush 3 Ml Syringe) 3 ml IVFLUSH QSHIFT [facility] Last Admin: 12/08/24 09:15 Dose: 3 ml Documented By: EMIR Sodium Chloride (0.9 % Sodium Chloride Flush 10 Ml Syringe) 5 ml IVFLUSH QSHIFT [facility] Last Admin: 12/08/24 09:18 Dose: Not Given Documented By: EMIR Non-Admin Reason: Duplicate Order Trazodone HCl (Trazodone Hcl 50 Mg Tablet) 50 mg PO BEDTIME MRX1 PRN PRN Reason: Insomnia Last Admin: 12/01/24 23:13 Dose: 50 mg Documented By: MERYLQC Labs 12/03/24 10:40 12/07/24 06:09 Assessment and Plan (1) Cellulitis of left foot: Status: Acute (2) Avascular necrosis of bones of both hips: Status: Acute Plan A 34 years old male with PMH of opiates dependence, schizophrenia, neuropathy, Hx IVDU among others presenting to ED with lower extremities wounds. 1.Cellulitis of LLE with acute on chronic osteomyelitis of big toe -Daptomycin () (PO Doxycycline if he refuses IV treatment as Zyvox carries higher risk of Serotonin syndrome with rest of his meds) surgery consults, debridement done, to be followed at wound clinic 2,Acute Toxic encephalopathy related to polypharmacy -improving - meds adjusted - follow clinically 3.Avascular necrosis head of femur -orthopedic eval, no intervention now, outpatient follow up -needs SNF placement for rehab 4.Opioid dependence - methadone as ordered 5.Hx Schizophrenia -resume Olanzapine DVT PPx Lovenox The patient will need overnight hopsital stay for treatment of lower extremity cellulitis with concern of chronic Osteomyelitis on IV antibiotics Quality Stroke Does the patient have a stroke diagnosis?: No VTE Prior VTE?: No VTE Risk Level:: Medical - moderate - high VTE Device Contraindication: Treatment Not Indicated VTE Drug Contraindication: N/A - Med Ordered
--- NOTE | 2024-12-08 14:50 | MHC.CM.PN ---
CM CONTACTED [facility] TO VERIFY GUEST DOSING AND INTAKE REPORTED PT IS STILL UNDER REVIEW AND REQUESTED CM CALL BACK TOMORROW AM WHEN STAFF WORKING ON PT'S GD RETURNS, EVELIA CALLAHAN STILL PENDING, CM WILL CONT TO FOLLOW.
[2024-12-08] MEDS: 0.9 % Sodium Chloride Flush 10 ML SYRINGE 5 ML IVFLUSH (16:42)
[2024-12-08 19:53] VITALS: BP 97/58; PULSE 84; RESP 18; TEMP 36.1; O2SAT 98
--- NOTE | 2024-12-08 21:58 | PC.NURSE ---
Patient refusing bed alarm and high fall risk protocol. Patient educated on importance of safety measures but patient still continues to refuse alarms. Camera at bedside for safety and encouraged to ask for assistance when needed.Patient ambulating to bathroom with walker. Patient alert and oriented, drowsy but easily arousable.
[2024-12-08 23:42] VITALS: BP 113/53; PULSE 79; RESP 16; TEMP 36.1; O2SAT 94
[2024-12-09 03:19] VITALS: BP 97/55; PULSE 89; RESP 16; TEMP 36.2; O2SAT 94
[2024-12-09] MEDS: oxyCODONE HCl Immed Release 5 MG TABLET PO ×3 (05:36→19:17)
[2024-12-09] MEDS: 0.9 % Sodium Chloride Flush 10 ML SYRINGE 5 ML IVFLUSH ×3 (05:37→14:44)
[2024-12-09] MEDS: Nicotine Polacrilex 2 MG GUM 4 MG BUCCAL ×4 (05:44→19:18)
--- NOTE | 2024-12-09 06:04 | PC.NURSE ---
pt alert and oriented to self and place. pt is refusing blood drawn or taken from his PICC line for lab work. MD Robertson notified.
[2024-12-09 07:29] VITALS: BP 97/53; PULSE 86; RESP 14; TEMP 36.6; O2SAT 95
[2024-12-09] MEDS: Multivitamin TABLET 1 TAB PO (08:34)
[2024-12-09] MEDS: Gabapentin 400 MG CAPSULE PO ×2 (08:35→14:43)
[2024-12-09] MEDS: methADONE HCl 20 MG/2 ML ORAL.CONC 170 MG PO (08:36)
--- NOTE | 2024-12-09 09:00 | PC.NURSE ---
Patient refused blood draw from PICC line from previous shift, continue to refuse blood draw from PICC and vein draw this am.
--- NOTE | 2024-12-09 09:07 | MHC.CM.PN ---
FIM REVIEWED, CM CONTACTED [facility] AT 8:5AM [phone], CM SPOKE W/[facility] WHO REPORTED THEY DID NOT RECEIVE HOSPITAL PAPERWORK HOWEVER ONCE CM PROVIDED DATE/TIME OF FAX [facility] WAS ABLE TO LOCATE, [facility] REPORTING PT WILL NEED UPDATED DOSING WHICH HAS BEEN FAXED TO [phone], CM WILL FOLLOW UP W/[facility] TO VERIFY RECEIPT OF UPDATED DOSING AND THAT PT WON'T BE ABLE TO START UNTIL THURSDAY THEY DO NOT DO NEW PT'S OVER W/E. CM RECEIVED MESSAGE FROM LIAISON AT [facility] WHO REPORTS SHE WILL CHECK ON STATUS OF AUTH AND GUEST DOSING AND WILL GET BACK TO CM REGARDING PREBOOKING PT FOR THURSDAY.
[2024-12-09] MEDS: Dextroamphetamine/Amphetamine XR 5 MG CAP.ER.24H PO (10:22)
[2024-12-09] MEDS: clonazePAM 1 MG TABLET 2 MG PO (10:23)
[2024-12-09 11:59] VITALS: BP 95/57; PULSE 77; RESP 14; TEMP 36.3; O2SAT 95
[2024-12-09] MEDS: DAPTOMYCIN IV (12:20)
[2024-12-09] MEDS: SODIUM CHLORIDE 0.9% IV (12:20)
[2024-12-09 15:12] VITALS: BP 95/50; PULSE 80; RESP 14; TEMP 36.6; O2SAT 98
--- NOTE | 2024-12-09 15:25 | HO.PM.IMPN ---
Subjective Subjective Date of Service: 12/09/24 Interval History: No acute issues overnight. Remains afebrile Review of Systems denies chest pain Denies shortness of breath Denies nausea vomiting diarrhea Denies fever chills Physical Exam Vital Signs: Vital Signs: Last Vital Signs Temp 97.8 F 12/09/24 15:12 Pulse 80 12/09/24 15:12 Resp 14 12/09/24 15:12 BP 95/50 L 12/09/24 15:12 Pulse Ox 98 12/09/24 15:12 O2 Del Method Room Air 12/09/24 15:12 BMI result Body Mass Index 23.1 Const: Other: awake alert no acute distress Resp: Other: clear to auscultation bilaterally no rales rhonchi or wheezes Cardio: Other: no S4; positive S1-S2; no S3 murmurs rubs gallops GI: Other: soft nontender nondistended normoactive bowel sounds Extrem: Other: no edema bilaterally Objective Data Active Medications Acetaminophen (Acetaminophen 325 Mg Tablet) 650 mg PO Q6H PRN PRN Reason: Pain, Mild 1-3,fever,headache Last Admin: 12/01/24 20:04 Dose: 650 mg Documented By: GOYO Amphetamine/Dextroamphetamine (Dextroamphetamine/Amphetamine Xr 5 Mg Cap.Er.24h) 5 mg PO DAILY [facility] Last Admin: 12/09/24 10:22 Dose: 5 mg Documented By: ANNABEL Comments: medication was not available in [facility] Calcium Carbonate (Calcium Carbonate 750 Mg Tab.Chew) 750 mg PO Q4H PRN PRN Reason: Heartburn Clonazepam (Clonazepam 1 Mg Tablet) 1 mg PO Q4H PRN PRN Reason: anxiety/restlessness Last Admin: 12/08/24 16:40 Dose: 1 mg Documented By: EMIR Clonazepam (Clonazepam 1 Mg Tablet) 2 mg PO BID PRN PRN Reason: Insomnia, anxiety Last Admin: 12/09/24 10:23 Dose: 2 mg Documented By: ANNABEL Enoxaparin Sodium (Enoxaparin Sodium 40 Mg/0.4 Ml Syringe) 40 mg SUBCUT Q24H [facility] Last Admin: 12/09/24 15:20 Dose: Not Given Documented By: ANNABEL Non-Admin Reason: Patient Refused Fluphenazine HCl (Fluphenazine Hcl 5 Mg Tablet) 15 mg PO BID [facility] Last Admin: 12/09/24 08:34 Dose: Not Given Documented By: ANNABEL Non-Admin Reason: Patient Refused Gabapentin (Gabapentin 300 Mg Capsule) 300 mg PO TID [facility] Last Admin: 12/02/24 08:11 Dose: 300 mg Documented By: UNRULY Gabapentin (Gabapentin 400 Mg Capsule) 400 mg PO TID [facility] Last Admin: 12/09/24 14:43 Dose: 400 mg Documented By: ANNABEL Daptomycin 490 mg/ Sodium (Chloride) 59.8 mls @ 100 mls/hr IV Q24H [facility] Last Infusion: 12/09/24 13:04 Dose: Infused Documented By: ANNABEL Magnesium Hydroxide (Milk Of Magnesia 30 Ml Oral.Susp) 30 ml PO DAILY PRN PRN Reason: Constipation Melatonin (Melatonin 3 Mg Tablet) 6 mg PO BEDTIME PRN PRN Reason: Insomnia Methadone HCl (Methadone Hcl 20 Mg/2 Ml Oral.Conc) 170 mg PO DAILY [facility] Last Admin: 12/09/24 08:36 Dose: 170 mg Documented By: ANNABEL Co-signed By: DA Multivitamins/Vitamin C (Multivitamin Tablet) 1 tab PO DAILY [facility] Last Admin: 12/09/24 08:34 Dose: 1 tab Documented By: ANNABEL Nicotine (Nicotine 21 Mg Patch.Td24) 21 mg TRANSDERMA DAILY [facility] Last Admin: 12/09/24 08:43 Dose: Not Given Documented By: ANNABEL Non-Admin Reason: Patient Refused Nicotine Polacrilex (Nicotine Polacrilex 2 Mg Gum) 4 mg BUCCAL Q2H PRN PRN Reason: Smoking Cessation Last Admin: 12/09/24 08:35 Dose: 4 mg Documented By: ANNABEL Olanzapine (Olanzapine 5 Mg Tablet) 5 mg PO BEDTIME PRN PRN Reason: Psychosis Olanzapine (Olanzapine 10 Mg Tablet) 20 mg PO BEDTIME [facility] Last Admin: 12/08/24 21:55 Dose: Not Given Documented By: BOB Non-Admin Reason: Patient Refused Ondansetron HCl (Ondansetron Hcl 4 Mg/2 Ml Vial) 4 mg IVPUSH Q8H PRN PRN Reason: Nausea and Vomiting Oxycodone HCl (Oxycodone Hcl Immed Release 5 Mg Tablet) 5 mg PO Q6H PRN PRN Reason: Pain, Moderate(Pain Scale 4-6) Last Admin: 12/09/24 12:49 Dose: 5 mg Documented By: ANNABEL Quetiapine Fumarate (Quetiapine Fumarate 50 Mg Tablet) 50 mg PO BEDTIME PRN PRN Reason: Sleep Sodium Chloride (0.9 % Sodium Chloride Flush 3 Ml Syringe) [facility] Admin: 12/09/24 14:45 Dose: Not Given Documented By: ANNABEL Non-Admin Reason: No Access Sodium Chloride (0.9 % Sodium Chloride Flush 10 Ml Syringe) 5 ml IVFLUSH QSHIFT [facility] Last Admin: 12/09/24 14:44 Dose: 5 ml Documented By: ANNABEL Trazodone HCl (Trazodone Hcl 50 Mg Tablet) 50 mg PO BEDTIME MRX1 PRN PRN Reason: Insomnia Last Admin: 12/01/24 23:13 Dose: 50 mg Documented By: MERYLQC Labs 12/03/24 10:40 12/07/24 06:09 Assessment and Plan (1) Cellulitis of foot, right: Status: Acute (2) Schizophrenia, paranoid, chronic with acute exacerbation: Status: Acute (3) Foot osteomyelitis, left: Status: Acute Plan A 34 years old male with PMH of opiates dependence, schizophrenia, neuropathy, Hx IVDU among others presenting to ED with lower extremities wounds. 1.Cellulitis of LLE with acute on chronic osteomyelitis of big toe -Daptomycin () (PO Doxycycline if he refuses IV treatment as Zyvox carries higher risk of Serotonin syndrome with rest of his meds) surgery consults, debridement done, to be followed at wound clinic 2,Acute Toxic encephalopathy related to polypharmacy -improving - meds adjusted - follow clinically 3.Avascular necrosis head of femur -orthopedic eval, no intervention now, outpatient follow up -needs SNF placement for rehab 4.Opioid dependence - methadone as ordered 5.Hx Schizophrenia -resume Olanzapine DVT PPx Lovenox Patient will need ongoing hospitalization for IV daptomycin to treat cellulitis with chronic osteomyelitis as well as safe placement Quality Stroke Does the patient have a stroke diagnosis?: No VTE Prior VTE?: No VTE Risk Level:: Medical - moderate - high VTE Device Contraindication: Treatment Not Indicated VTE Drug Contraindication: N/A - Med Ordered
[2024-12-09] MEDS: clonazePAM 1 MG TABLET PO (15:43)
--- NOTE | 2024-12-09 16:06 | MHC.CM.PN ---
Addendum entered by Mónica Carias RN 12/09/24 16:21: CM OFFERED TO CALL PT'S MOTHER TO LET HER KNOW HE WAS DISCHARGING HOWEVER PT DECLINES AND WILL TEXT HER NAME AND ADDRESS OF FACILITY WHICH CM PROVIDED TO PT. Addendum entered by Mónica Carias RN 12/09/24 16:18: ARTIS DID QUESTION NEW START DATING COMING FROM HOSPITAL INSTEAD OF PT'S HOME CLINIC AND ROEL REPORTED BECAUSE PT IS ALREADY APPROVED THE CHANGE IN START DATE CAN COME FROM HOSPITAL. Original Note: CM RECEIVED CALL FROM MARIA LUISA SEVILLA AT [facility], ROEL REPORTS PT CAN DC TODAY W/LESS THAN 30DAY AND REQUESTED CM FAX A FAX COVER SHEET W/NEW START DATE OF Thursday12/10/24 AND LAST DOSE LETTER TO [facility] WHICH HAS BEEN COMPLETED. [facility] FOR TRANSPORT AT 6PM
--- NOTE | 2024-12-09 16:08 | PM.DS ---
DS: Providers Provider Date of Service: 12/09/24 Date of admission: 12/01/24 16:06 Date of discharge: 12/09/24 Primary care physician: Dex Physician Consults: 12/02/24 00:15 Consult to Wound Care Routine Reason for consultation: cellulitis/open wound to left great toe. 12/02/24 07:23 Consult to Infectious Diseases Routine Consulting Provider: [facility] Infect[facility] Reason for consultation: Osteomyelitis 12/02/24 07:26 Consult to General Surgery Routine Consulting Provider: [facility] General Surgeons Reason for consultation: Deep wound in big toe, chronic osteomyelitis 12/05/24 10:00 Consult to Infectious Diseases ONCE Consulting Provider: [facility] Reason for consultation: START OF DAPTOMYCIN DUE TO REFUSING LABS FOR VANCOMYCIN 12/05/24 16:11 Inpt CARE Team Crisis Consult Routine Comment: Reason for consultation: MEdically clear, Hx of SI for your clearance for SNF placement. 12/07/24 03:09 Consult to Wound Care Routine Reason for consultation: cellulitis to L great toe 12/08/24 03:09 Consult to Wound Care Routine Reason for consultation: cellulitis to L great toe DS: Diagnosis Discharge Diagnosis (1) Cellulitis of foot, right: Status: Acute (2) Schizophrenia, paranoid, chronic with acute exacerbation: Status: Acute (3) Foot osteomyelitis, left: Status: Acute DS: Summary Hospital Course Hospital Course: 34 years old male with PMH of opiates dependence, schizophrenia, neuropathy, Hx IVDU among others presenting to ED with lower extremities wounds. The patient reports left foot pain, swelling and warmth up to his ankle and Right big toe swelling and pus formation along with right hip pain. No chest pain, palpitations, SOB, nausea, vomiting, diarrhea or urinary symptoms. He was started on oral antibiotics yesterday but feels worse pain and swelling today. he is saying that walking is very painful. In ED found to have normal WBCs and KFT. mild transaminitis with elevated CRP. Images of foot showing no acute findings but swelling in left forefoot. Hip XR concerning for bilateral Avascular necrosis femoral head. Admitted for further work up and treatment. Hospital course Patient admitted to general medical floor and started on vancomycin. Seen by Infectious Disease who thought this was acute on chronic osteomyelitis and recommended 6 weeks of vancomycin however patient noncompliant with vancomycin levels. ID reconsulted and recommended daptomycin daily. At this point in time he is medically acceptable for discharge and will be transferred when bed available Time Attestation Discharge Coordination Time (in mins): 35 Quality: Safe Use of Opioids Does Pt have an Active Cancer Diagnosis on the Problem List?: No Quality: Stroke Does the patient have a stroke diagnosis?: No Physical Exam Vital Signs: Vital Signs: Last Vital Signs Temp 97.8 F 12/09/24 15:12 Pulse 80 12/09/24 15:12 Resp 14 12/09/24 15:12 BP 95/50 L 12/09/24 15:12 Pulse Ox 98 12/09/24 15:12 O2 Del Method Room Air 12/09/24 15:12 BMI result Body Mass Index 23.1 Const: Other: awake alert no acute distress Resp: Other: clear to auscultation bilaterally no rales rhonchi or wheezes Cardio: Other: no S4; positive S1-S2; no S3 murmurs rubs gallops GI: Other: soft nontender nondistended normoactive bowel sounds Extrem: Other: no edema bilaterally Discharge Plan Discharge Anticipated Discharge Date/Time: 12/04/24 14:47 Patient Disposition: Xfer [facility] Discharge Diagnosis: Bilateral osteomyelitis Referrals: [facility] [Outside] - 1 Day (SHORT TERM REHAB, IV ANTIBIOTICS ) Physician,None [Primary Care Provider] - 1 Week Discharge Medications: New oxycodone 5 mg Tablet 5 mg PO Q6H PRN (Reason: Pain, Moderate(Pain Scale 4-6)) Qty: 60 0RF Rx Instructions: Partial Fill upon patient request. daptomycin 500 mg Recon Soln 490 mg IV Q24H Qty: 35 0RF clonazepam 2 mg tablet 2 mg PO QID Qty: 120 0RF Continued trazodone 50 mg Tablet 50 mg PO BEDTIME MRX1 PRN (Reason: Insomnia) Qty: 60 0RF olanzapine 5 mg Tablet 5 mg PO BEDTIME PRN (Reason: Psychosis) nicotine 21 mg/24 hr Patch 24 Hour 1 patch TRANSDERMAL DAILY quetiapine 50 mg Tablet 50 mg PO BEDTIME PRN (Reason: Sleep) multivitamin Tablet 1 tab PO DAILY acetaminophen 325 mg Tablet 650 mg PO Q6H PRN (Reason: Pain, Mild) nicotine (polacrilex) 2 mg Gum 4 mg BUCCAL Q2H PRN (Reason: Smoking Cessation) gabapentin 400 mg Capsule 400 mg PO TID melatonin 3 mg Tablet 3 mg PO BEDTIME PRN (Reason: Insomnia) melatonin 3 mg Tablet 3 mg PO BEDTIME gabapentin 300 mg Capsule 300 mg PO TID fluphenazine HCl 5 mg Tablet 15 mg PO BID dextroamphetamine-amphetamine [Adderall XR] 5 mg Capsule,Extended Release 24hr 5 mg PO DAILY methadone [Methadose] 10 mg/mL concentrate 170 mg PO DAILY Rx Instructions: Partial Fill upon patient request. olanzapine 20 mg tablet 20 mg PO BEDTIME Discontinued amoxicillin-pot clavulanate [Augmentin] 875-125 mg Tablet 1 tab PO BID Rx Instructions: Start date= 11/3024 Stop date =12/07/24 clonazepam 1 mg Tablet 1 mg PO Q6H PRN (Reason: Anxiety) clonazepam 1 mg tablet 1 mg PO BEDTIME clonazepam 1 mg Tablet 1 mg PO BID PRN (Reason: Anxiety) clonazepam 2 mg Tablet 2 mg PO BID PRN (Reason: Anxiety) Discharge Orders: Discharge Order (Routine); Ordered 12/09/24 Ordered By: Twin Qureshi Diet: Advance to usual diet Activity on Discharge: As tolerated Stand Alone Forms: Patient Portal Discharge page Print Language: Cambodian Care Plan Goals: Complete course of daptomycin as outlined Health Concerns: Continue all medications as per transfer summary Plan of Treatment: Further plans as per receiving facility Assessment: See discharge summary
--- NOTE | 2024-12-09 17:51 | PC.NURSE ---
2 attempts for dressing change but pt. refused.
--- NOTE | 2024-12-09 19:28 | PC.NURSE ---
Report given to the night Nurse, 2nd unit of blood still running.
== END 2024-12-09 19:40 | disposition skilled nursing facility (03) | DRG 383 ==
LOC: HO.ED 16:08 → HO.EDOVER 16:41 → HO.S3 17:27
PROVIDERS: Admitting Provider Student in an Organized Health Care Education/Training Program; Emergency Provider Emergency Medicine; Visit Provider Hospitalist
DX: L03.116 Cellulitis of left lower limb (principal); G92.8 Other toxic encephalopathy; M86.172 Other acute osteomyelitis, left ankle and foot; M86.672 Other chronic osteomyelitis, left ankle and foot; M87.051 Idiopathic aseptic necrosis of right femur; M87.052 Idiopathic aseptic necrosis of left femur; F11.20 Opioid dependence, uncomplicated; F20.9 Schizophrenia, unspecified; T50.915A Adverse effect of multiple unspecified drugs, medicaments and biological substances, initial encounter; G62.9 Polyneuropathy, unspecified; F17.210 Nicotine dependence, cigarettes, uncomplicated; Z71.6 Tobacco abuse counseling; Z79.899 Other long term (current) drug therapy
CPT/HCPCS: 36415; 36573; 73522; 73590; 73630; 80048; 80053; 80307; 81003; 82565; 83605; 85025; 85652; 86140; 87040; 97116; 97162; 99285; C1751; J0878; J1650; J2543; J3370; S9485

== ENCOUNTER → 2024-12-01 13:20 | Outpatient (BNV) | payer OTHER, SELFPAY | PROVIDERS: Emergency Provider Emergency Medicine; Visit Provider Radiology Diagnostic Radiology | DX: M25.551 Pain in right hip (principal); M25.552 Pain in left hip; M79.671 Pain in right foot; M79.672 Pain in left foot; M79.604 Pain in right leg; M79.605 Pain in left leg | CPT/HCPCS: 73522; 73590; 73630 ==

== ENCOUNTER → 2024-12-01 16:06 | Outpatient (BNV) | payer OTHER, SELFPAY | PROVIDERS: Admitting Provider Student in an Organized Health Care Education/Training Program; Emergency Provider Emergency Medicine; Visit Provider Physician Assistant | DX: M86.272 Subacute osteomyelitis, left ankle and foot (principal); F20.0 Paranoid schizophrenia; F11.20 Opioid dependence, uncomplicated; G62.9 Polyneuropathy, unspecified; M87.051 Idiopathic aseptic necrosis of right femur; M87.052 Idiopathic aseptic necrosis of left femur | CPT/HCPCS: 99221 ==

== ENCOUNTER → 2024-12-01 16:06 | Outpatient (BNV) | payer OTHER, SELFPAY | PROVIDERS: Admitting Provider Student in an Organized Health Care Education/Training Program; Emergency Provider Emergency Medicine; Visit Provider Surgery | DX: L03.116 Cellulitis of left lower limb (principal) | CPT/HCPCS: 99222; 99232 ==

== ENCOUNTER → 2024-12-01 16:06 | Outpatient (BNV) | payer OTHER, SELFPAY | PROVIDERS: Admitting Provider Student in an Organized Health Care Education/Training Program; Emergency Provider Emergency Medicine; Visit Provider Internal Medicine | DX: L03.116 Cellulitis of left lower limb (principal) | CPT/HCPCS: 99222 ==

== ENCOUNTER → 2024-12-01 16:06 | Outpatient (BNV) | payer OTHER, SELFPAY | PROVIDERS: Admitting Provider Student in an Organized Health Care Education/Training Program; Emergency Provider Emergency Medicine; Visit Provider Student in an Organized Health Care Education/Training Program | DX: M87.051 Idiopathic aseptic necrosis of right femur (principal); M87.052 Idiopathic aseptic necrosis of left femur; L03.116 Cellulitis of left lower limb | CPT/HCPCS: 99223; 99232; 99233; 99239; 99499 ==

== ENCOUNTER 2025-01-20 18:21 | Inpatient (IN) | payer OTHER, SELFPAY ==
[2025-01-20 18:23] VITALS: BP 114/70; PULSE 83; RESP 18; TEMP 36.6; O2SAT 95; BMI 22.9
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
--- NOTE | 2025-01-20 19:54 | MHC.EDTECH ---
t/w attempted to draw lab work from pt. pt extremely difficult stick. MILI Granda also attempted lab draw, pt stated his arm hurt pt allowed time to relax before attempting again. rn aware.
--- NOTE | 2025-01-20 20:07 | PC.NURSE ---
Pt pacing unit, but calm and cooperative Plan of care ongoing.
--- NOTE | 2025-01-20 21:05 | PC.NURSE ---
This RN, pod tech, and ED lead tech attempted to draw labs and unable to obtain d/t hard stick. Lead tech will attempt again with vein finder. Plan of care ongoing.
--- NOTE | 2025-01-20 21:30 | PC.NURSE ---
This RN attempted to speak with Shaunna pts mom to confirm meds but phone number listed [phone] does not ring. Call attempted 2x. Plan of care ongoing.
--- NOTE | 2025-01-20 22:05 | PC.NURSE ---
statistical technician attempted and able to obtain labs. Pt requested and lights dimmed and blanket given. Plan of care ongoing.
[2025-01-20 22:33] LABS: Hematocrit 41.8 % (42.0-52.0); Hemoglobin 15.0 g/dl (14.0-18.0); Imm Gran Abs Auto 0.01 X10*3/uL (0.00-0.03); Imm Gran Pct Auto 0.2 % (0.0-0.4); Lymphocytes Absolute Auto 3.2 X10*3/uL (1.2-4.9); MANUAL DIFF FLAG SCAN; Mean Corpuscular HGB Conc 35.9 g/dl (31.0-36.0); Mean Corpuscular Hemoglobin 32.1 pg (27.0-33.0); Mean Corpuscular Volume 89.3 fL (80.0-98.0); NRBC Abs Auto 0.000 X10*3/uL (0.0-0.012); NRBC Pct Auto 0.0 /100WBC (0.0-0.2); PLT CLUMP 1; Red Blood Count 4.68 X10*6/uL (4.60-5.80); SCAN SMEAR FLAG 1
[2025-01-20 22:48] LABS: Alanine Aminotransferase 96 U/L (0-40); Albumin Level 3.9 g/dL (3.5-5.0); Alkaline Phosphatase 87 U/L (39-117); Anion Gap 10 (12-20); Aspartate Amino Transferase 87 U/L (5-37); Blood Urea Nitrogen 13 mg/dL (9-16); Calcium 9.2 mg/dL (8.4-10.2); Carbon Dioxide 24 mmol/L (22-29); Chloride 105 mmol/L (96-108); Creatinine Clr Calc Pharmacy 185.7; Estimated Glomerular Filt Rate > 60; Magnesium 2.1 mg/dL (1.6-2.6); Potassium 4.3 mmol/L (3.3-5.1); Sodium 135 mmol/L (135-145); Total Protein 8.0 g/dL (6.5-8.0)
[2025-01-20 23:04] LABS: White Blood Count 6.7 X10*3/uL (4.8-10.8)
[2025-01-21 07:10] VITALS: BP 109/60; PULSE 71; RESP 14; TEMP 36.3; O2SAT 95
--- NOTE | 2025-01-21 07:11 | MHC.EDTECH ---
Patient verbally agreeing to provide urine sample, this tech provided urine cup at bedside and patient states they are aware where bathroom is.
--- NOTE | 2025-01-21 07:23 | PC.NURSE ---
methadone dose verfied by Martina Good at [facility] [phone]. Methadone verification form completed, faxed to pharmacy, provider notified.
--- NOTE | 2025-01-21 07:31 | PC.NURSE ---
[facility] 24 hour [address] [facility] [place] [address] called, pharmacist rosangela reported no active prescriptions.
--- NOTE | 2025-01-21 07:44 | PC.NURSE ---
awaiting pharmacy verification of methadone dose
[2025-01-21 07:55] LABS: Appearance Urine Clear; Glucose Urine UA Negative (Negative); PH 6.0 (5.0-9.0); Specific Gravity - Urine 1.025 (1.005-1.025); UMIC TRIGGER UACC YES
--- NOTE | 2025-01-21 07:56 | HE.PHANOTE ---
RE METHADONE Pharmacy has received patients methadone verification sheet. Patient is confirmed to have received 170 mg of methadone from [facility] [phone], confirmed by RN shirin Miller with Martina nick. Last dose given 01/20/25
[2025-01-21 08:09] LABS: Cannabinoid Screen Urine Not Detected (Not Detect)
[2025-01-21] MEDS: methADONE HCl 20 MG/2 ML ORAL.CONC 170 MG PO (08:36)
--- NOTE | 2025-01-21 08:42 | PHA.MEDREC ---
Pharmacy Consult ? Medication Reconciliation Pharmacy has completed the medication reconciliation. Pharmacy claims show compound drug patient could not recall what this was, he thinks it was an IV drip he was on. Patient confirmed he takes klonopin 2 mg TID ARISTIDES. He stated he is no longer on fluphenazine as it caused stomach problems.
[2025-01-21] MEDS: Dextroamphetamine/Amphetamine XR 5 MG CAP.ER.24H PO (12:05)
[2025-01-21 16:03] VITALS: BP 98/66; PULSE 71; RESP 17; TEMP 36.1; O2SAT 96
--- NOTE | 2025-01-22 02:14 | PC.NURSE ---
Pt took all night medications except olanzapine stating multiple times that he was not ready to take that yet . Pt pacing in halls at times and offered medication and continued to decline. Pt noted to be asleep in bed at this time.
[2025-01-22 07:33] VITALS: BP 95/71; PULSE 78; RESP 16; TEMP 36.3; O2SAT 93
--- NOTE | 2025-01-22 07:43 | PC.NURSE ---
Assumed care of patient at 0645, patient appears to be in no apparent distress at this time, sitting in bed, eating breakfast, offering no complaints to this RN. Continue plan of care for IPLOC
[2025-01-22] MEDS: Dextroamphetamine/Amphetamine XR 5 MG CAP.ER.24H PO (08:06)
[2025-01-22] MEDS: methADONE HCl 20 MG/2 ML ORAL.CONC 170 MG PO (08:06)
[2025-01-22 17:41] VITALS: BP 97/59; PULSE 84; RESP 14; TEMP 36.7; O2SAT 97
--- NOTE | 2025-01-22 18:55 | PC.NURSE ---
MD aware of early dosing of PRN Clonazepam today, verbal okayd
--- NOTE | 2025-01-23 05:50 | MHC.EDTECH ---
Patient does not want vitals taken at this time. Patient stated No, not right now.
[2025-01-23 05:52] VITALS: RESP 16
--- NOTE | 2025-01-23 06:11 | PC.NURSE ---
pt resting comfortably throughout the night, no apparent distress noted at this time
--- NOTE | 2025-01-23 08:02 | ECG_ITS ---
Test Reason : CHECK QTC Blood Pressure : */* mmHG Vent. Rate : 64 BPM Atrial Rate : 64 BPM P-R Int : 176 ms QRS Dur : 92 ms QT Int : 416 ms P-R-T Axes : 72 74 50 degrees QTcB Int : 429 ms Normal sinus rhythm Normal ECG When compared with ECG of 29-Sep-2023 11:06, No significant change was found Referred By: Elliot Painting Electronically Signed By: GAURAV MEDEROS
[2025-01-23] MEDS: methADONE HCl 20 MG/2 ML ORAL.CONC 170 MG PO (08:40)
[2025-01-23] MEDS: Dextroamphetamine/Amphetamine XR 5 MG CAP.ER.24H PO (08:42)
--- NOTE | 2025-01-23 13:43 | PC.NURSE ---
RN to RN report given to Sarah. Plan to admit to room 323-3. Patient aware. Ambulating steadily. Aware that Klonopin & Adderall will be tapered down once on psych unit, and stated okay. I've been on those for a long time, but I'll talk to the doctor about it once I get upstairs . In behavioral control, eating lunch at this time. Calm/cooperative with this RN.
[2025-01-23 13:46] VITALS: BP 100/60; PULSE 86; RESP 16; TEMP 36.7; O2SAT 100
[2025-01-23 13:58] VITALS: BP 103/58; PULSE 96; RESP 14; TEMP 36.4; O2SAT 96
[2025-01-23 14:13] VITALS: BMI 23.1
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
--- NOTE | 2025-01-23 16:45 | PC.NURSE ---
Daniel Whalen was admitted to M3 at 13:45 from Pod on [address]? for treatment of depression and SI.? Precipitants of admission include ?thinking about [place],? tapering off of medications being taken, and ?wanting to change the medications I?m on.? Pt is alert and oriented x3. Pt is cooperative with staff, but did give inconsistent reports between nurse and TILE EDGER. ? Mood confirms feeling depressed and anxious. Affect presents as anxious and guarded.? Pt denies HI and AVH, does not appear internally occupied or responding to internal stimuli.? Pt denies experiencing paranoia and delusions.? Thought process is linear.? Pt admits to SI with no intent of following through with plan of going to a bridge to jump from and into [place].? Pt also admitted to SI regarding jumping from a window on M5.? Appetite is present and no significant weight loss.? Pt expresses no difficulty sleeping and denies difficulty concentrating on tasks.? Pt denies taking substances and states no known history of seizure disorders.? Pt mentions a history of alcohol, cocaine, and heroin use and is sober.? Tox screen tested positive for amphetamines, pt denies taking any substances containing amphetamine.? Existing medical issues include hypertension, depression, and anxiety.? Denies physical complaints. Safety checks set for 15 minutes.??
[2025-01-23 20:00] VITALS: RESP 16
--- NOTE | 2025-01-23 21:01 | HO.PSYADMNOT ---
HPI Date of Service: 01/23/25 Chief Complaint: SI/ agitation HPI Narrative: per CARE team fior, pt self-presented to [facility] ED with c/o AH, SI, and lack of medications. pt reports in recent days his AH of baseline have worsened, he has been isolating and pacing a lot in the house. pt reports that his mother encouraged him to come to the hospital, as she was concerned about his presentation. pt was observed int he ED pacing and self-dialoguing. he endorsed low mod and SI. on interview with MD, pt endorses AH and SI, noting as his most formidable problem his depression. he is also quite concerned about anxiety and MD's stated plan to taper down on klonopin. MD explains rationale for holding stimulant for now. pt expresses ambivalence re taking zyprexa, indicating he does not take it regularly. he is more enthusiastic about seroquel, so MD agrees to change neuroleptic to seroquel. pt denies use of any substances aside from methadone and cigarettes. complete psychiatric interview completed, interval history updated. Past Psychiatric History: hosps: reports 5-10 prior. SA: denies. says he was [place] once for a while but got up and left before a train came. CARE team fior indicates attempted heroin overdose in 2021. SIB: reports h/o putting cigarettes out on his arms, can't explain his intent. outpt: reports he is seen at [facility]. Medical Evaluation Reviewed: Yes [facility] Medical History Avascular necrosis of bones of both hips Cellulitis of left foot Cellulitis of foot, right Schizophrenia, paranoid, chronic with acute exacerbation Foot osteomyelitis, left Routine medical exam Cellulitis of great toe, left Peripheral neuropathy History of intravenous drug abuse Opiate dependence Family History: denies. records indicate a sister with schizophrenia who was on zyprexa. Social History: lives with mother Substance History: tobacco - 1-2 ppd alcohol - denies use cannabis - denies use opioids - sober 3 years on methadone maintenance 170 mg daily. denies use of other substances. Trauma History: reports h/o feeling a group of people were pursuing him to kill him and that they took my soulmate away from me. Diagnostics Vital Signs (24Hr): Vital Signs - 24 hr 01/23/25 05:52 01/23/25 13:46 01/23/25 13:58 Temperature 98.1 F 97.5 F Pulse Rate 86 96 Respiratory Rate 16 16 14 Blood Pressure 100/60 103/58 L Pulse Oximetry 100 96 Oxygen Delivery Method Room Air Room Air BMI result Body Mass Index 23.1 Labs 01/20/25 22:05 01/20/25 22:05 Meds/Allergies Meds Home Medications ?Medication ?Instructions ?Recorded ?Confirmed ?Type clonazepam 2 mg tablet 2 mg PO TID PRN tiffany 01/21/25 01/21/25 History dextroamphetamine-amphetamine ER 5 1 cap PO DAILY attention deficit 01/21/25 01/21/25 History mg 24hr capsule,extend release hyperactivity disorder (Adderall XR) methadone 10 mg/mL oral 170 mg PO DAILY 01/21/25 01/21/25 History concentrate (Methadone Intensol) nicotine (polacrilex) 2 mg gum 2 mg buccal Q2H 01/21/25 01/21/25 History olanzapine 20 mg tablet 20 mg PO BEDTIME psychosis 01/21/25 01/21/25 History Allergies Allergies Allergy/AdvReac Type Severity Reaction Status Date / Time haloperidol (From Haldol) AdvReac Severe tongue Verified 01/20/25 18:27 swelling Mental Status Exam Mental Status Exam Narrative: Appearance: wearing hospital attire, poor hygiene Behavior: cooperative Psychomotor: calm, cooperative Speech: mostly clear, normal rate/rhythm/volume, spontaneous TP: linear TC: Tx Mood: i don't know. a little anxious. Affect: constricted, hypo-intense, non-labile SI: ongoing, less than prior HI: none VH: none AH: all day Delusions: memories of people trying to kill him Insight/judgment: impaired x 2. Memory/cog: alert, oriented x 3. Assessment & Plan Assessment & Plan (1) Suicidal ideation: Status: Acute Code(s): R45.851 - Suicidal ideations (2) Chronic schizophrenia: Status: Acute Code(s): F20.9 - Schizophrenia, unspecified Plan DC stimulant. decrease klonopin from 2 TID PRN to 1.5 TID PRN for safety. continue methadone 170 mg daily. increase gabapentin 400 TID to 600 TID for neuropathic pain. DC olanzapine and start seroquel 200 QHS per pt request re anti-psychotic. T/C anti-depressant medication as pt c/o depression with SI. Patient educated on: diagnosis, medication risk/benefits and substance abuse Reason for continued inpatient stay Substantial Risk for: harm to self and inability to function Statement Statement: I have reviewed the history and physical and performed a pertinent examination on my patient. No changes have occurred unless specified. If the History and Physical was not performed prior to admission, the Hospitalist's service will be consulted for completing the admission physical. Time Spent With Patient Time: Total time managing care of this patient today __75__ minutes.
[2025-01-24] MEDS: methADONE HCl 20 MG/2 ML ORAL.CONC 170 MG PO (07:50)
--- NOTE | 2025-01-24 18:34 | HO.PSYCHPN ---
Subjective Subjective Date of Service: 01/24/25 Reason For Visit: SI/ agitation Interim History: appears somewhat affected by medications. steady on his feet, however, without any discernible substantial difficulty ambulating. reports pain 4-5/10 since gabapentin increase, AH still there, SI gone today. agreeable to continue current medications. very concerned about planned further klonopin dose reductions. per staff, +AH telling him everything is poisoned. anxious, racing thoughts. focused on klonopin. Mental Status Exam Mental Status Exam Narrative: Appearance: wearing hospital attire, poor hygiene Behavior: cooperative Psychomotor: calm, cooperative Speech: mostly clear, normal rate/rhythm/volume, spontaneous TP: linear TC: Tx Mood: anxious Affect: constricted, hypo-intense, non-labile SI: denies HI: none VH: none AH: improved but ongoing Delusions: none expressed Insight/judgment: impaired x 2. Memory/cog: alert, oriented x 3. Diagnostics Vital Signs (24Hr): Vital Signs - 24 hr 01/23/25 20:00 Respiratory Rate 16 BMI result Body Mass Index 23.1 Labs 01/20/25 22:05 01/20/25 22:05 Medications Medications Current Medications Acetaminophen (Acetaminophen 325 Mg Tablet) 650 mg PO Q6H PRN PRN Reason: Headache/Pain, Scale 1-10 Al Hydroxide/Mg Hydroxide (Magnesium Hydrox/Alum Hydrox 30 Ml Oral.Susp) 30 ml PO Q6H PRN PRN Reason: Heartburn/Nausea Clonazepam (Clonazepam 0.5 Mg Tablet) 1.5 mg PO TID PRN PRN Reason: Anxiety Last Admin: 01/24/25 13:37 Dose: 1.5 mg Gabapentin (Gabapentin 300 Mg Capsule) 600 mg PO TID [facility] Last Admin: 01/24/25 15:49 Dose: 600 mg Hydroxyzine HCl (Hydroxyzine Hcl 25 Mg Tablet) 25 mg PO Q6H PRN PRN Reason: mild anxiety Magnesium Hydroxide (Milk Of Magnesia 30 Ml Oral.Susp) 30 ml PO DAILY PRN PRN Reason: Constipation Methadone HCl (Methadone Hcl 20 Mg/2 Ml Oral.Conc) 170 mg PO DAILY [facility] Last Admin: 01/24/25 07:50 Dose: 170 mg Nicotine Polacrilex (Nicotine Polacrilex 2 Mg Gum) 4 mg BUCCAL Q2H PRN PRN Reason: Nicotine Cravings Last Admin: 01/24/25 18:08 Dose: 4 mg Quetiapine Fumarate (Quetiapine Fumarate 200 Mg Tablet) 200 mg PO BEDTIME [facility] Last Admin: 01/23/25 22:28 Dose: 200 mg Trazodone HCl (Trazodone Hcl 50 Mg Tablet) 50 mg PO BEDTIME MRX1 PRN PRN Reason: Insomnia Allergies Allergies Allergy/AdvReac Type Severity Reaction Status Date / Time haloperidol (From Haldol) AdvReac Severe tongue Verified 01/20/25 18:27 swelling Assessment & Plan Assessment & Plan (1) Suicidal ideation: Status: Acute Code(s): R45.851 - Suicidal ideations (2) Chronic schizophrenia: Status: Acute Code(s): F20.9 - Schizophrenia, unspecified Plan 01/23: DC stimulant. decrease klonopin from 2 TID PRN to 1.5 TID PRN for safety. continue methadone 170 mg daily. increase gabapentin 400 TID to 600 TID for neuropathic pain. DC olanzapine and start seroquel 200 QHS per pt request re anti-psychotic. T/C anti-depressant medication as pt c/o depression with SI. 01/24: med rec reviewed, it was noted pt's most recent klonopin script was for only 4 mg per day, not the 6 mg daily pt has been asserting. appears perhaps overmedicated today, but MD agrees to leave medications where they are for another day for observation of trend. pt reports SI has resolved and AH continune but abated. outpt prescriber identified as umu sandoval. Reason for continued inpatient stay Substantial Risk for: harm to self and inability to function Time Spent With Patient Time: Total time managing care of this patient today __25__ minutes.
[2025-01-24 20:00] VITALS: BP 120/61; PULSE 118; RESP 16; TEMP 36.3; O2SAT 96
[2025-01-25 08:00] VITALS: BP 104/72; PULSE 110
[2025-01-25] MEDS: methADONE HCl 20 MG/2 ML ORAL.CONC 170 MG PO (08:38)
--- NOTE | 2025-01-25 11:06 | P.CONHOSP_ITS ---
History of Present Illness Data of Consult Service Date: 01/25/25 Primary Care Provider: None Physician HPI Reason for consult: Neck pain 34-year-old male with a past medical history of schizophrenia, opiate dependence, neuropathy, history of IV drug use, history of lower extremity wounds, chronic osteomyelitis of his left great toe, history of avascular necrosis. Patient was admitted in December, for treatment of acute on chronic osteomyelitis and was discharged to rehab with a PICC line for to complete 6 weeks of daptomycin on 12/09/2024. He was initially recommend that he be discharged on vanco, however he was not compliant with trough levels. Therefore he was changed to daptomycin. He reports that he was recently discharged from rehab around 01/09/2025. Unclear if he completed treatment. Presented to the ED with suicidal ideation and now is admitted to the psychiatric floor for further treatment. Patient is seen for neck pain. On exam patient is seen ambulating with a headset on his neck, he reports that he had some pain in his neck both sides as well as the back of his neck that started yesterday, this is new pain for him. Reports that the pain is improved today. He has full range of motion. No redness warmth or swelling noted to neck. No pain with palpation. No pain with palpation to spine. He denies any fever or chills, patient has tachycardia today. BP is stable. Denies any pain. Chronic toe wound appears unchanged from admission. Toe dry with scabbed area. Foot red and warm but patient is pacing all day. Review of Systems 2 Review of Systems: Denies any shortness of breath, chest pain, dizziness, lightheadedness, abdominal pain or discomfort, nausea vomiting or diarrhea [facility] Medical History Avascular necrosis of bones of both hips Cellulitis of left foot Cellulitis of foot, right Schizophrenia, paranoid, chronic with acute exacerbation Foot osteomyelitis, left Routine medical exam Cellulitis of great toe, left Peripheral neuropathy History of intravenous drug abuse Opiate dependence Social History Household Members: Friend(s) and Other Household Members Other:: Pt did not specify Housing: Apartment Do you presently have visiting nurse or other home services: No Unable to assess alcohol history related to: Refusing to respond Comment: Pt refusing bed alarm Patient Tobacco Use Status: Current everyday Tobacco user Tobacco use type: Cigarette Cigarette Packs Per Day: 2 Cigarettes Per Day: 40.0 Years Smoked: 19 Smoked in Last 30 Days: Yes e-Cigarette/Vaping Use: Never Used Patient Interested in Nicotine Replacement: Yes (4 mg gum and patch) Patient Given Instructions on How to Stop Smoking: Yes Date Education Initiated: 01/23/25 Second Hand Smoke Exposure: No Use of substances other than those prescribed or required for medical reasons: No Currently Displaying Signs/Symptoms of Drug Intoxication Withdrawal: No Have you been hit, kicked, punched, or otherwise hurt by someone within the past year? If so, by whom?: No Do you feel safe in your current relationship?: No Current Relationship Is there a partner from a previous relationship who is making you feel unsafe now?: No Are you made to feel afraid or neglected: Yes Advance Directives: No Advance Directives Information Provided: Yes Do you have thoughts of harming others: None Do you have a plan to hurt others: No Plan Recently lost weight without trying: No How much weight loss: Not applicable Eating poorly because of decreased appetite: Yes Nutrition screen score: 1 Nutrition Risks: No Nutritional Risk Poor oral hygiene: Yes (pt has no teeth.) service: No Sexual orientation: Straight/Heterosexual Meds Allergies Allergy/AdvReac Type Severity Reaction Status Date / Time haloperidol (From Haldol) AdvReac Severe tongue Verified 01/20/25 18:27 swelling Active Medications: Current Medications Acetaminophen (Acetaminophen 325 Mg Tablet) 650 mg PO Q6H PRN PRN Reason: Headache/Pain, Scale 1-10 Al Hydroxide/Mg Hydroxide (Magnesium Hydrox/Alum Hydrox 30 Ml Oral.Susp) 30 ml PO Q6H PRN PRN Reason: Heartburn/Nausea Clonazepam (Clonazepam 1 Mg Tablet) 1 mg PO TID PRN PRN Reason: Anxiety Last Admin: 01/25/25 08:44 Dose: 1 mg Gabapentin (Gabapentin 400 Mg Capsule) 800 mg PO TID TIFFANY Last Admin: 01/25/25 08:42 Dose: 800 mg Hydroxyzine HCl (Hydroxyzine Hcl 25 Mg Tablet) 25 mg PO Q6H PRN PRN Reason: mild anxiety Magnesium Hydroxide (Milk Of Magnesia 30 Ml Oral.Susp) 30 ml PO DAILY PRN PRN Reason: Constipation Methadone HCl (Methadone Hcl 20 Mg/2 Ml Oral.Conc) 170 mg PO DAILY [facility] Last Admin: 01/25/25 08:38 Dose: 170 mg Nicotine Polacrilex (Nicotine Polacrilex 2 Mg Gum) 4 mg BUCCAL Q2H PRN PRN Reason: Nicotine Cravings Last Admin: 01/24/25 18:08 Dose: 4 mg Quetiapine Fumarate (Quetiapine Fumarate 200 Mg Tablet) 200 mg PO BEDTIME [facility] Last Admin: 01/24/25 23:17 Dose: 200 mg Trazodone HCl (Trazodone Hcl 50 Mg Tablet) 50 mg PO BEDTIME MRX1 PRN PRN Reason: Insomnia Home Medications ?Medication ?Instructions ?Recorded ?Confirmed ?Last Taken ?Type clonazepam 2 mg tablet 2 mg PO TID PRN tiffany 01/21/25 01/21/25 Unknown History dextroamphetamine-amphetamine ER 5 1 cap PO DAILY atte ntion deficit 01/21/25 01/21/25 Unknown History mg 24hr capsule,extend release hyperactivity disorder (Adderall XR) methadone 10 mg/mL oral 170 mg PO DAILY 01/21/25 Unknown History concentrate (Methadone Intensol) nicotine (polacrilex) 2 mg gum 2 mg buccal Q2H 5 01/21/25 Unknown History olanzapine 20 mg tablet 20 mg PO BEDTIME psychosis 0 01/21/25 01/21/25 Unknown History Physical Exam 2 Vital Signs and Narrative: Vital Signs: Last Vital Signs Temp 97.3 F 01/24/25 20:00 Pulse 110 H 01/25/25 08:00 Resp 16 01/24/25 20:00 BP 104/72 01/25/25 08:00 Pulse Ox 96 01/24/25 20:00 O2 Del Method Room Air 01/24/25 20:00 BMI result Body Mass Index 23.1 CONST: Alert and oriented, in NAD. Well nourished HEENT: Normocephalic, atraumatic, MMM, Eyes clear, Neck supple RESP: Lungs clear, RRR even and regular HEART:,RRR, S1, S2. No murmur, no edema GI:Abdomen Soft NT, ND. + BS times four :Deferred SKIN: Warm dry and intact, Dry scabbed area to left great toe. Foot warm to touch and red. No increased edema. NEURO:CN II-XII Intact bilaterally, Sensation intact. Speech clear PSYCH: Flat affect Results Labs 01/20/25 22:05 01/20/25 22:05 Assessment and Plan (1) Neck pain: Status: Acute Plan Schizophrenia/suicidal ideation Treatment per psych Neck pain Full range of motion Patient reports that it has improved today No evidence of infection History of 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 We will check ESR, WBC, CRP due to history of chronic osteomyelitis If elevated we will consider further imaging and ID consult as needed Thank you for allowing me to participate in the care of this patient. Will follow as needed. Please reconsult of any acute concerns or issues arise
--- NOTE | 2025-01-25 14:24 | HO.PSYCHPN ---
Subjective Subjective Date of Service: 01/25/25 Reason For Visit: SI/ agitation Interim History: in bed, jam smeared on his arm and sheets, some on his chin. rousable. appears quite heavy, as if sedated. informed of MD's knowledge of his most recent klonopin script's having been for 4 mg daily, not 6, as well as MD's plan to further reduce klonopin to 3 mg total daily today. pt not happy with plan. endorses ongoing foot pain, MD informs pt of plan to increase gabapentin simultaneously. per staff, withdrawn, pacing. self-dialoguing. not attendin groups. paranoid. neck stiffness. mumbles to himself. slept 6 hours. Mental Status Exam Mental Status Exam Narrative: Appearance: wearing hospital attire, poor hygiene Behavior: cooperative Psychomotor: calm, cooperative Speech: mostly clear, normal rate/rhythm/volume, spontaneous TP: linear TC: Tx Mood: anxious Affect: constricted, hypo-intense, non-labile SI: denies HI: none VH: none AH: improved but ongoing Delusions: none expressed Insight/judgment: impaired x 2. Memory/cog: alert, oriented x 3. Diagnostics Vital Signs (24Hr): Vital Signs - 24 hr 01/24/25 20:00 01/25/25 08:00 Temperature 97.3 F Pulse Rate 118 H 110 H Respiratory Rate 16 Blood Pressure 120/61 104/72 Pulse Oximetry 96 Oxygen Delivery Method Room Air BMI result Body Mass Index 23.1 Labs 01/20/25 22:05 01/20/25 22:05 Medications Medications Current Medications Acetaminophen (Acetaminophen 325 Mg Tablet) 650 mg PO Q6H PRN PRN Reason: Headache/Pain, Scale 1-10 Al Hydroxide/Mg Hydroxide (Magnesium Hydrox/Alum Hydrox 30 Ml Oral.Susp) 30 ml PO Q6H PRN PRN Reason: Heartburn/Nausea Clonazepam (Clonazepam 1 Mg Tablet) 1 mg PO TID PRN PRN Reason: Anxiety Last Admin: 01/25/25 08:44 Dose: 1 mg Gabapentin (Gabapentin 400 Mg Capsule) 800 mg PO TID [facility] Last Admin: 01/25/25 08:42 Dose: 800 mg Hydroxyzine HCl (Hydroxyzine Hcl 25 Mg Tablet) 25 mg PO Q6H PRN PRN Reason: mild anxiety Magnesium Hydroxide (Milk Of Magnesia 30 Ml Oral.Susp) 30 ml PO DAILY PRN PRN Reason: Constipation Methadone HCl (Methadone Hcl 20 Mg/2 Ml Oral.Conc) 170 mg PO DAILY [facility] Last Admin: 01/25/25 08:38 Dose: 170 mg Nicotine Polacrilex (Nicotine Polacrilex 2 Mg Gum) 4 mg BUCCAL Q2H PRN PRN Reason: Nicotine Cravings Last Admin: 01/25/25 11:51 Dose: 4 mg Quetiapine Fumarate (Quetiapine Fumarate 200 Mg Tablet) 200 mg PO BEDTIME [facility] Last Admin: 01/24/25 23:17 Dose: 200 mg Trazodone HCl (Trazodone Hcl 50 Mg Tablet) 50 mg PO BEDTIME MRX1 PRN PRN Reason: Insomnia Allergies Allergies Allergy/AdvReac Type Severity Reaction Status Date / Time haloperidol (From Haldol) AdvReac Severe tongue Verified 01/20/25 18:27 swelling Assessment & Plan Assessment & Plan (1) Neck pain: Status: Acute Code(s): M54.2 - Cervicalgia Assessment and Plan: Schizophrenia/suicidal ideation Treatment per psych Neck pain Full range of motion Patient reports that it has improved today No evidence of infection History of 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 We will check ESR, WBC, CRP due to history of chronic osteomyelitis If elevated we will consider further imaging and ID consult as needed Thank you for allowing me to participate in the care of this patient. Will follow as needed. Please reconsult of any acute concerns or issues arise (2) Suicidal ideation: Status: Acute Code(s): R45.851 - Suicidal ideations (3) Chronic schizophrenia: Status: Acute Code(s): F20.9 - Schizophrenia, unspecified Plan 01/23: DC stimulant. decrease klonopin from 2 TID PRN to 1.5 TID PRN for safety. continue methadone 170 mg daily. increase gabapentin 400 TID to 600 TID for neuropathic pain. DC olanzapine and start seroquel 200 QHS per pt request re anti-psychotic. T/C anti-depressant medication as pt c/o depression with SI. 01/24: med rec reviewed, it was noted pt's most recent klonopin script was for only 4 mg per day, not the 6 mg daily pt has been asserting. appears perhaps overmedicated today, but MD agrees to leave medications where they are for another day for observation of trend. pt reports SI has resolved and AH continue but abated. outpt prescriber identified as umu sandoval. 01/25: appears overmedicated. pt informed of new info re klonopin script. lower klonopin to 1 TID PRN. increase gabapentin to 800 TID for nerve pain. otherwise continue current mgmt. Reason for continued inpatient stay Substantial Risk for: inability to function Time Spent With Patient Time: Total time managing care of this patient today __25__ minutes.
[2025-01-26] MEDS: methADONE HCl 20 MG/2 ML ORAL.CONC 170 MG PO (08:48)
--- NOTE | 2025-01-26 15:14 | P.PNPSI_ITS ---
Subjective Subjective Date of Service: 01/26/25 Reason For Visit: SI/ agitation Interim History: reports he is talking to himself, that's normal for him. very resistant to changing neuroleptics or increasing dose of seroquel. finally agrees to increase by 50 mg at HS. reports foot pain improving on gabapentin. slept well. per staff, anxious and paranoid. taking medications. refused VS, then relented. pacing, slept 8 hours. c/o stiff neck. Mental Status Exam Mental Status Exam Narrative: Appearance: wearing hospital attire, poor hygiene Behavior: cooperative Psychomotor: constantly pacing the hills Speech: mostly clear, normal rate/rhythm/volume, spontaneous TP: linear TC: Tx Mood: anxious Affect: constricted, hypo-intense, non-labile SI: none expressed HI: none expressed VH: none expressed AH: improved but ongoing Delusions: none expressed Insight/judgment: impaired x 2. Memory/cog: alert, oriented x 3. Diagnostics Vital Signs (24Hr): BMI result Body Mass Index 23.1 Labs 01/20/25 22:05 01/20/25 22:05 Medications Medications Current Medications Acetaminophen (Acetaminophen 325 Mg Tablet) 650 mg PO Q6H PRN PRN Reason: Headache/Pain, Scale 1-10 Al Hydroxide/Mg Hydroxide (Magnesium Hydrox/Alum Hydrox 30 Ml Oral.Susp) 30 ml PO Q6H PRN PRN Reason: Heartburn/Nausea Clonazepam (Clonazepam 1 Mg Tablet) 1 mg PO TID PRN PRN Reason: Anxiety Last Admin: 01/26/25 08:50 Dose: 1 mg Gabapentin (Gabapentin 400 Mg Capsule) 800 mg PO TID [facility] Last Admin: 01/26/25 14:33 Dose: 800 mg Hydroxyzine HCl (Hydroxyzine Hcl 25 Mg Tablet) 25 mg PO Q6H PRN PRN Reason: mild anxiety Magnesium Hydroxide (Milk Of Magnesia 30 Ml Oral.Susp) 30 ml PO DAILY PRN PRN Reason: Constipation Methadone HCl (Methadone Hcl 20 Mg/2 Ml Oral.Conc) 170 mg PO DAILY [facility] Last Admin: 01/26/25 08:48 Dose: 170 mg Nicotine Polacrilex (Nicotine Polacrilex 2 Mg Gum) 4 mg BUCCAL Q2H PRN PRN Reason: Nicotine Cravings Last Admin: 01/26/25 14:33 Dose: 4 mg Quetiapine Fumarate (Quetiapine Fumarate 50 Mg Tablet) 250 mg PO BEDTIME [facility] Trazodone HCl (Trazodone Hcl 50 Mg Tablet) 50 mg PO BEDTIME MRX1 PRN PRN Reason: Insomnia Allergies Allergies Allergy/AdvReac Type Severity Reaction Status Date / Time haloperidol (From Haldol) AdvReac Severe tongue Verified 01/20/25 18:27 swelling Assessment & Plan Assessment & Plan (1) Neck pain: Status: Acute Code(s): M54.2 - Cervicalgia Assessment and Plan: Schizophrenia/suicidal ideation Treatment per psych Neck pain Full range of motion Patient reports that it has improved today No evidence of infection History of 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 We will check ESR, WBC, CRP due to history of chronic osteomyelitis If elevated we will consider further imaging and ID consult as needed Thank you for allowing me to participate in the care of this patient. Will follow as needed. Please reconsult of any acute concerns or issues arise (2) Suicidal ideation: Status: Acute Code(s): R45.851 - Suicidal ideations (3) Chronic schizophrenia: Status: Acute Code(s): F20.9 - Schizophrenia, unspecified Plan 01/23: DC stimulant. decrease klonopin from 2 TID PRN to 1.5 TID PRN for safety. continue methadone 170 mg daily. increase gabapentin 400 TID to 600 TID for neuropathic pain. DC olanzapine and start seroquel 200 QHS per pt request re anti-psychotic. T/C anti-depressant medication as pt c/o depression with SI. 01/24: med rec reviewed, it was noted pt's most recent klonopin script was for only 4 mg per day, not the 6 mg daily pt has been asserting. appears perhaps overmedicated today, but MD agrees to leave medications where they are for another day for observation of trend. pt reports SI has resolved and AH continue but abated. outpt prescriber identified as umu sandoval. 01/25: appears overmedicated. pt informed of new info re klonopin script. lower klonopin to 1 TID PRN. increase gabapentin to 800 TID for nerve pain. otherwise continue current mgmt. 01/26: appears less overmedicated, pacing the halls constantly. pulse now mildly tachycardic, BPs WNL but higher than before. monitor for benzo withdrawal. foot pain improving, slept well last night. reticent to increase seroquel or change anti-psychotics, but ultimately agrees to increase from 200 QHS to 250 QHS. otherwise continue current mgmt. Reason for continued inpatient stay Substantial Risk for: harm to self and inability to function Time Spent With Patient Time: Total time managing care of this patient today __25__ minutes.
[2025-01-26 20:00] VITALS: BP 114/62; PULSE 77; RESP 16; TEMP 36.3; O2SAT 96
[2025-01-26 23:25] LABS: Glucose, Whole Blood 89 mg/dL (60-115)
--- NOTE | 2025-01-26 23:43 | HO.PSYEVENT2 ---
Event Note Date of Service: 01/26/25 Psych On-Call Event Note: Was called by nursing staff patient diaphoretic somewhat tremulous afebrile had refused nighttime Seroquel. Patient is on significant dose of methadone 170 mg gabapentin 800 t.i.d. patient reportedly had been on 2 t.i.d. of clonazepam according to the patient will give him a 1 mg dose now recheck mental status. Worsening confusion change in mental status would asked to get hospitalist nighttime consult. Patient was afebrile not hypertensive History of psychotic disorder Time Spent With Patient Time: Total time managing care of this patient today ____ minutes.
[2025-01-26 23:46] VITALS: BP 105/61; PULSE 105; RESP 16; TEMP 36.2; O2SAT 97
--- NOTE | 2025-01-27 00:06 | PC.NURSE ---
At roughly 21:20 patient asked if he could be let into the kitchen to make a peanut butter and jelly sandwich. Patient is noted to be profusely diaphoretic soaked through his hospital [facility], and is very tremulous. Vital signs: BP 105/61 P 105 Resp 16 Temp. 97.2 POC 89 His speech is slurred, but mumbling appears to be patients baseline. He is ordered Klonopin 1mg TID PRN and was last given this at 21:17. Patient reports he was taking Klonopin 2mg TID at home. Patient also has a history of seizures. sand operator provider David Marie was notified of patients current presentation and new order was placed for one-time dose of Klonopin 1mg to be given now. Hospitalist consult was also ordered if no improvement.
[2025-01-27 07:57] VITALS: BP 140/59; PULSE 80; RESP 14; TEMP 36.6; O2SAT 97
[2025-01-27] MEDS: methADONE HCl 20 MG/2 ML ORAL.CONC 170 MG PO (08:34)
--- NOTE | 2025-01-27 15:57 | HO.PSYCHPN ---
Subjective Subjective Date of Service: 01/27/25 Reason For Visit: SI/ agitation Interim History: c/o episode of profuse sweating and tachycardia last evening, was given klonopin 1 mg x 1. feels he is in benzo withdrawal, not in agreement with recent cuts in dosing. c/o ingoing foot discomfort. agrees to increase gabapentin to 900 mg TID. agrees to increase klonopin from total 3 mg daily to 4 mg daily, his most recent outpt dosing. c/o thigh pain, encouraged to try tylenol. per staff, pleasant, cooperative. profuse diaphoresis and shaking episode last evening. got klonopin 1 mg for it. slept well after receiving extra dose of klonopin. Mental Status Exam Mental Status Exam Narrative: Appearance: wearing hospital attire, poor hygiene Behavior: cooperative Psychomotor: constantly pacing the hills Speech: mostly clear, normal rate/rhythm/volume, spontaneous TP: linear TC: benzo withdrawal Mood: anxious Affect: constricted, hypo-intense, non-labile SI: none expressed HI: none expressed VH: none expressed AH: improved but ongoing Delusions: none expressed Insight/judgment: impaired x 2. Memory/cog: alert, oriented x 3. Diagnostics Vital Signs (24Hr): Vital Signs - 24 hr 01/26/25 20:00 01/26/25 23:46 01/27/25 07:57 Temperature 97.4 F 97.2 F 97.8 F Pulse Rate 77 105 H 80 Respiratory Rate 16 16 14 Blood Pressure 114/62 105/61 140/59 H Pulse Oximetry 96 97 97 Oxygen Delivery Method Room Air Room Air Room Air BMI result Body Mass Index 23.1 Labs 01/20/25 22:05 01/20/25 22:05 Labs: Laboratory Results - last 48 hr 01/26/25 23:19 POC Glucose 89 Medications Medications Current Medications Acetaminophen (Acetaminophen 325 Mg Tablet) 650 mg PO Q6H PRN PRN Reason: Headache/Pain, Scale 1-10 Al Hydroxide/Mg Hydroxide (Magnesium Hydrox/Alum Hydrox 30 Ml Oral.Susp) 30 ml PO Q6H PRN PRN Reason: Heartburn/Nausea Clonazepam (Clonazepam 1 Mg Tablet) 1 mg PO DAILY@1500 [facility] Last Admin: 01/27/25 14:04 Dose: 1 mg Clonazepam 1 mg/ Clonazepam 0. (5 mg) 1.5 mg PO BID [facility] Gabapentin (Gabapentin 300 Mg Capsule) 900 mg PO TID [facility] Last Admin: 01/27/25 14:04 Dose: 900 mg Hydroxyzine HCl (Hydroxyzine Hcl 25 Mg Tablet) 25 mg PO Q6H PRN PRN Reason: mild anxiety Magnesium Hydroxide (Milk Of Magnesia 30 Ml Oral.Susp) 30 ml PO DAILY PRN PRN Reason: Constipation Methadone HCl (Methadone Hcl 20 Mg/2 Ml Oral.Conc) 170 mg PO DAILY [facility] Last Admin: 01/27/25 08:34 Dose: 170 mg Nicotine Polacrilex (Nicotine Polacrilex 2 Mg Gum) 4 mg BUCCAL Q2H PRN PRN Reason: Nicotine Cravings Last Admin: 01/27/25 14:04 Dose: 4 mg Quetiapine Fumarate (Quetiapine Fumarate 50 Mg Tablet) 250 mg PO BEDTIME [facility] Last Admin: 01/26/25 21:21 Dose: Not Given Trazodone HCl (Trazodone Hcl 50 Mg Tablet) 50 mg PO BEDTIME MRX1 PRN PRN Reason: Insomnia Allergies Allergies Allergy/AdvReac Type Severity Reaction Status Date / Time haloperidol (From Haldol) AdvReac Severe tongue Verified 01/20/25 18:27 swelling Assessment & Plan Assessment & Plan (1) Neck pain: Status: Acute Code(s): M54.2 - Cervicalgia Assessment and Plan: Schizophrenia/suicidal ideation Treatment per psych Neck pain Full range of motion Patient reports that it has improved today No evidence of infection History of 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 We will check ESR, WBC, CRP due to history of chronic osteomyelitis If elevated we will consider further imaging and ID consult as needed Thank you for allowing me to participate in the care of this patient. Will follow as needed. Please reconsult of any acute concerns or issues arise (2) Suicidal ideation: Status: Acute Code(s): R45.851 - Suicidal ideations (3) Chronic schizophrenia: Status: Acute Code(s): F20.9 - Schizophrenia, unspecified Plan 01/23: DC stimulant. decrease klonopin from 2 TID PRN to 1.5 TID PRN for safety. continue methadone 170 mg daily. increase gabapentin 400 TID to 600 TID for neuropathic pain. DC olanzapine and start seroquel 200 QHS per pt request re anti-psychotic. T/C anti-depressant medication as pt c/o depression with SI. 01/24: med rec reviewed, it was noted pt's most recent klonopin script was for only 4 mg per day, not the 6 mg daily pt has been asserting. appears perhaps overmedicated today, but MD agrees to leave medications where they are for another day for observation of trend. pt reports SI has resolved and AH continue but abated. outpt prescriber identified as umu sandoval. 01/25: appears overmedicated. pt informed of new info re klonopin script. lower klonopin to 1 TID PRN. increase gabapentin to 800 TID for nerve pain. otherwise continue current mgmt. 01/26: appears less overmedicated, pacing the halls constantly. pulse now mildly tachycardic, BPs WNL but higher than before. monitor for benzo withdrawal. foot pain improving, slept well last night. reticent to increase seroquel or change anti-psychotics, but ultimately agrees to increase from 200 QHS to 250 QHS. otherwise continue current mgmt. 01/27: c/o sweating and shaking episode last night, believes he is in klonopin withdrawal. got an extra mg last night, MD increased dosing from 3 mg daily up to 4 mg daily as of today. pt advocating high-dose benzo as Tx for his AH. MD educates pt on appropriate psychopharmacologic intervention for psychosis. increase gabapentin to 900 TID for foot pain. otherwise continue current mgmt. Reason for continued inpatient stay Substantial Risk for: inability to function, rapid decompensation and med/psych decompensation Time Spent With Patient Time: Total time managing care of this patient today __25__ minutes.
--- NOTE | 2025-01-27 16:08 | PM.EVENT ---
Event Note Date of Service: 01/27/25 Event Note: She was seen in follow up, reported diaphoresis and evidence of withdrawal last evening, was given a dose of clonazepam x1. Clonazepam was adjusted today. Patient is at his baseline ambulating in the hallway and pacing. Unable to draw his labs. No fever no tachycardia no evidence of infection. We will continue to monitor Time Spent With Patient Time: Total time managing care of this patient today ____ minutes.
[2025-01-27 20:00] VITALS: BP 126/71; PULSE 92; RESP 16; TEMP 37; O2SAT 94
[2025-01-27] MEDS: CLONAZEPAM 1.5 MG PO (20:26)
[2025-01-28 07:40] VITALS: BP 106/58; PULSE 81; RESP 16; TEMP 36.4; O2SAT 99
[2025-01-28] MEDS: methADONE HCl 20 MG/2 ML ORAL.CONC 170 MG PO (09:17)
[2025-01-28] MEDS: CLONAZEPAM 1.5 MG PO ×2 (09:21→18:13)
--- NOTE | 2025-01-28 17:15 | P.PNPSI_ITS ---
Subjective Subjective Date of Service: 01/28/25 Reason For Visit: SI/ agitation Interim History: Patient reports the timing of when he takes the Clonazepam at home is different than at the hospital and asking for the change to be AM, 12 noon and dinner time. Will make the change. He continues to pace the unit. Appears preoccupied internally. Difficult with nurses earlier this morning. He was blocking the nurses from closing the medication window. No SI. Review of Systems Review of Systems Denies any shortness of breath, chest pain, dizziness, lightheadedness, abdominal pain or discomfort, nausea vomiting or diarrhea Constitutional: Reports no additional constitutional complaints, Denies chills, Denies fever(s) and Denies night sweats Eyes: Reports no additional eye complaints, Denies blurry vision, Denies change in vision, Denies diplopia, Denies eye discharge, Denies loss of vision and Denies eye pain Denies dizziness Cardiovascular: Reports no additional cardiovascular complaints, Denies chest pain, Denies lightheadedness, Denies Loss of Consciousness and Denies dyspnea Respiratory: Reports no additional respiratory complaints and Denies dyspnea Gastrointestinal: Reports no additional gastrointestinal complaints, Denies abdominal pain, Denies melena, Denies hematochezia, Denies change in bowel habits and Denies change in stool character Genitourinary: Reports no additional male genitourinary complaints, Denies hematuria, Denies oliguria, Denies difficulty urinating, Denies dysuria, Denies urinary frequency, Denies urinary hesitancy, Denies urinary incontinence and Denies urinary urgency Musculoskeletal: Reports no additional musculoskeletal complaints, Denies numbness and Denies tingling Denies dizziness, Denies loss of vision, Denies numbness and Denies tingling Psychiatric: Reports no additional psychiatric complaints, Reports auditory hallucinations, Denies homicidal ideation and Reports suicidal ideation Endocrine: Reports no additional endocrine complaints Hematologic/Lymphatic: Reports no additional hematologic/lymphatic complaints Allergic/Immunologic: Reports no additional allergic/immunologic complaints Mental Status Exam Mental Status Exam Narrative: Appearance: wearing hospital attire, poor hygiene Behavior: cooperative Psychomotor: constantly pacing the hills Speech: mostly clear, normal rate/rhythm/volume, spontaneous TP: linear TC: benzo withdrawal Mood: anxious Affect: constricted, hypo-intense, non-labile SI: none expressed HI: none expressed VH: none expressed AH: improved but ongoing Delusions: none expressed Insight/judgment: impaired x 2. Memory/cog: alert, oriented x 3. Diagnostics Vital Signs (24Hr): Vital Signs - 24 hr 01/27/25 20:00 01/28/25 07:40 Temperature 98.6 F 97.5 F Pulse Rate 92 81 Respiratory Rate 16 16 Blood Pressure 126/71 106/58 L Pulse Oximetry 94 99 Oxygen Delivery Method Room Air Room Air BMI result Body Mass Index 23.1 Labs 01/20/25 22:05 01/20/25 22:05 Labs: Laboratory Results - last 48 hr 01/26/25 23:19 POC Glucose 89 Medications Medications Current Medications Acetaminophen (Acetaminophen 325 Mg Tablet) 650 mg PO Q6H PRN PRN Reason: Headache/Pain, Scale 1-10 Al Hydroxide/Mg Hydroxide (Magnesium Hydrox/Alum Hydrox 30 Ml Oral.Susp) 30 ml PO Q6H PRN PRN Reason: Heartburn/Nausea Clonazepam (Clonazepam 1 Mg Tablet) 1 mg PO DAILY@1500 [facility] Last Admin: 01/28/25 14:29 Dose: 1 mg Clonazepam 1 mg/ Clonazepam 0. (5 mg) 1.5 mg PO BID [facility] Last Admin: 01/28/25 09:21 Dose: 1.5 mg Gabapentin (Gabapentin 300 Mg Capsule) 900 mg PO TID [facility] Last Admin: 01/28/25 14:30 Dose: 900 mg Hydroxyzine HCl (Hydroxyzine Hcl 25 Mg Tablet) 25 mg PO Q6H PRN PRN Reason: mild anxiety Magnesium Hydroxide (Milk Of Magnesia 30 Ml Oral.Susp) 30 ml PO DAILY PRN PRN Reason: Constipation Methadone HCl (Methadone Hcl 20 Mg/2 Ml Oral.Conc) 170 mg PO DAILY [facility] Last Admin: 01/28/25 09:17 Dose: 170 mg Nicotine Polacrilex (Nicotine Polacrilex 2 Mg Gum) 4 mg BUCCAL Q2H PRN PRN Reason: Nicotine Cravings Last Admin: 01/28/25 16:40 Dose: 4 mg Quetiapine Fumarate (Quetiapine Fumarate 50 Mg Tablet) 250 mg PO BEDTIME [facility] Last Admin: 01/27/25 20:31 Dose: Not Given Trazodone HCl (Trazodone Hcl 50 Mg Tablet) 50 mg PO BEDTIME MRX1 PRN PRN Reason: Insomnia Allergies Allergies Allergy/AdvReac Type Severity Reaction Status Date / Time haloperidol (From Haldol) AdvReac Severe tongue Verified 01/20/25 18:27 swelling Assessment & Plan Assessment & Plan (1) Neck pain: Status: Acute Code(s): M54.2 - Cervicalgia Assessment and Plan: Schizophrenia/suicidal ideation Treatment per psych Neck pain Full range of motion Patient reports that it has improved today No evidence of infection History of 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 We will check ESR, WBC, CRP due to history of chronic osteomyelitis If elevated we will consider further imaging and ID consult as needed Thank you for allowing me to participate in the care of this patient. Will follow as needed. Please reconsult of any acute concerns or issues arise (2) Suicidal ideation: Status: Acute Code(s): R45.851 - Suicidal ideations (3) Chronic schizophrenia: Status: Acute Code(s): F20.9 - Schizophrenia, unspecified Plan 01/23: DC stimulant. decrease klonopin from 2 TID PRN to 1.5 TID PRN for safety. continue methadone 170 mg daily. increase gabapentin 400 TID to 600 TID for neuropathic pain. DC olanzapine and start seroquel 200 QHS per pt request re anti-psychotic. T/C anti-depressant medication as pt c/o depression with SI. 01/24: med rec reviewed, it was noted pt's most recent klonopin script was for only 4 mg per day, not the 6 mg daily pt has been asserting. appears perhaps overmedicated today, but MD agrees to leave medications where they are for another day for observation of trend. pt reports SI has resolved and AH continue but abated. outpt prescriber identified as umu sandoval. 01/25: appears overmedicated. pt informed of new info re klonopin script. lower klonopin to 1 TID PRN. increase gabapentin to 800 TID for nerve pain. otherwise continue current mgmt. 01/26: appears less overmedicated, pacing the halls constantly. pulse now mildly tachycardic, BPs WNL but higher than before. monitor for benzo withdrawal. foot pain improving, slept well last night. reticent to increase seroquel or change anti-psychotics, but ultimately agrees to increase from 200 QHS to 250 QHS. otherwise continue current mgmt. 01/27: c/o sweating and shaking episode last night, believes he is in klonopin withdrawal. got an extra mg last night, MD increased dosing from 3 mg daily up to 4 mg daily as of today. pt advocating high-dose benzo as Tx for his AH. MD educates pt on appropriate psychopharmacologic intervention for psychosis. increase gabapentin to 900 TID for foot pain. otherwise continue current mgmt. 01/28: Changed timing of administration of Klonopin to AM, 12 and dinner time. Continue current management and treatment plan. Reason for continued inpatient stay Substantial Risk for: inability to function and rapid decompensation Time Spent With Patient Time: Total time managing care of this patient today ____ minutes.
--- NOTE | 2025-01-28 18:15 | PC.NURSE ---
Patient approached nursing station requesting 5pm dose of Klonopin. Current orders are for 1.5mg BID (9am, 9pm) and 1mg at 3pm. Patient received 3pm dose around 2:30pm. Patient states he takes it at 9am, 12pm, and 5pm. [employer] message sent to Dr. Aftab Laughlin to report patients request. Order updated to reflect patient's request- to start tomorrow. Dr. Mcdonald authorized to administer tonight's 9pm dose early instead of before bed. Patient received Klonopin 1.5mg PO at 6:13pm and verbalized understanding that he will not receive another dose at bedtime.
[2025-01-28 20:00] VITALS: RESP 18
[2025-01-29] MEDS: CLONAZEPAM 1.5 MG PO ×2 (07:58→16:47)
[2025-01-29] MEDS: methADONE HCl 20 MG/2 ML ORAL.CONC 170 MG PO (07:59)
--- NOTE | 2025-01-29 09:48 | P.PNPSI_ITS ---
Subjective Subjective Date of Service: 01/29/25 Reason For Visit: SI/ agitation Interim History: I don't have much to report today He is content with the change in the timing of Clonazepam now that it's similar to how he takes it at home. He denies side effects. Remains pacing a lot on the unit. Appears internally preoccupied. No SI. He has been refusing Seroquel. Review of Systems Review of Systems Denies any shortness of breath, chest pain, dizziness, lightheadedness, abdominal pain or discomfort, nausea vomiting or diarrhea Constitutional: Reports no additional constitutional complaints, Denies chills, Denies fever(s) and Denies night sweats Eyes: Reports no additional eye complaints, Denies blurry vision, Denies change in vision, Denies diplopia, Denies eye discharge, Denies loss of vision and Denies eye pain Denies dizziness Cardiovascular: Reports no additional cardiovascular complaints, Denies chest pain, Denies lightheadedness, Denies Loss of Consciousness and Denies dyspnea Respiratory: Reports no additional respiratory complaints and Denies dyspnea Gastrointestinal: Reports no additional gastrointestinal complaints, Denies abdominal pain, Denies melena, Denies hematochezia, Denies change in bowel habits and Denies change in stool character Genitourinary: Reports no additional male genitourinary complaints, Denies hematuria, Denies oliguria, Denies difficulty urinating, Denies dysuria, Denies urinary frequency, Denies urinary hesitancy, Denies urinary incontinence and Denies urinary urgency Musculoskeletal: Reports no additional musculoskeletal complaints, Denies numbness and Denies tingling Denies dizziness, Denies loss of vision, Denies numbness and Denies tingling Psychiatric: Reports no additional psychiatric complaints, Reports auditory hallucinations, Denies homicidal ideation and Reports suicidal ideation Endocrine: Reports no additional endocrine complaints Hematologic/Lymphatic: Reports no additional hematologic/lymphatic complaints Allergic/Immunologic: Reports no additional allergic/immunologic complaints Mental Status Exam Mental Status Exam Narrative: Appearance: wearing hospital attire, poor hygiene Behavior: cooperative Psychomotor: constantly pacing the hills Speech: mostly clear, normal rate/rhythm/volume, spontaneous TP: linear TC: benzo withdrawal Mood: anxious Affect: constricted, hypo-intense, non-labile SI: none expressed HI: none expressed VH: none expressed AH: improved but ongoing Delusions: none expressed Insight/judgment: impaired x 2. Memory/cog: alert, oriented x 3. Diagnostics Vital Signs (24Hr): Vital Signs - 24 hr 01/28/25 20:00 Respiratory Rate 18 BMI result Body Mass Index 23.1 Labs 01/20/25 22:05 01/20/25 22:05 Medications Medications Current Medications Acetaminophen (Acetaminophen 325 Mg Tablet) 650 mg PO Q6H PRN PRN Reason: Headache/Pain, Scale 1-10 Al Hydroxide/Mg Hydroxide (Magnesium Hydrox/Alum Hydrox 30 Ml Oral.Susp) 30 ml PO Q6H PRN PRN Reason: Heartburn/Nausea Clonazepam (Clonazepam 1 Mg Tablet) 1 mg PO DAILY@1200 [facility] Clonazepam 1 mg/ Clonazepam 0. (5 mg) 1.5 mg PO BID@0900,1700 [facility] Gabapentin (Gabapentin 300 Mg Capsule) 900 mg PO TID [facility] Last Admin: 01/29/25 07:57 Dose: 900 mg Hydroxyzine HCl (Hydroxyzine Hcl 25 Mg Tablet) 25 mg PO Q6H PRN PRN Reason: mild anxiety Magnesium Hydroxide (Milk Of Magnesia 30 Ml Oral.Susp) 30 ml PO DAILY PRN PRN Reason: Constipation Methadone HCl (Methadone Hcl 20 Mg/2 Ml Oral.Conc) 170 mg PO DAILY [facility] Last Admin: 01/29/25 07:59 Dose: 170 mg Nicotine Polacrilex (Nicotine Polacrilex 2 Mg Gum) 4 mg BUCCAL Q2H PRN PRN Reason: Nicotine Cravings Last Admin: 01/28/25 22:42 Dose: 4 mg Quetiapine Fumarate (Quetiapine Fumarate 50 Mg Tablet) 250 mg PO BEDTIME [facility] Last Admin: 01/28/25 22:43 Dose: Not Given Trazodone HCl (Trazodone Hcl 50 Mg Tablet) 50 mg PO BEDTIME MRX1 PRN PRN Reason: Insomnia Allergies Allergies Allergy/AdvReac Type Severity Reaction Status Date / Time haloperidol (From Haldol) AdvReac Severe tongue Verified 01/20/25 18:27 swelling Assessment & Plan Assessment & Plan (1) Chronic schizophrenia: Status: Acute Code(s): F20.9 - Schizophrenia, unspecified Plan 01/23: DC stimulant. decrease klonopin from 2 TID PRN to 1.5 TID PRN for safety. continue methadone 170 mg daily. increase gabapentin 400 TID to 600 TID for neuropathic pain. DC olanzapine and start seroquel 200 QHS per pt request re anti-psychotic. T/C anti-depressant medication as pt c/o depression with SI. 01/24: med rec reviewed, it was noted pt's most recent klonopin script was for only 4 mg per day, not the 6 mg daily pt has been asserting. appears perhaps overmedicated today, but MD agrees to leave medications where they are for another day for observation of trend. pt reports SI has resolved and AH continue but abated. outpt prescriber identified as umu sandoval. 01/25: appears overmedicated. pt informed of new info re klonopin script. lower klonopin to 1 TID PRN. increase gabapentin to 800 TID for nerve pain. otherwise continue current mgmt. 01/26: appears less overmedicated, pacing the halls constantly. pulse now mildly tachycardic, BPs WNL but higher than before. monitor for benzo withdrawal. foot pain improving, slept well last night. reticent to increase seroquel or change anti-psychotics, but ultimately agrees to increase from 200 QHS to 250 QHS. otherwise continue current mgmt. 01/27: c/o sweating and shaking episode last night, believes he is in klonopin withdrawal. got an extra mg last night, MD increased dosing from 3 mg daily up to 4 mg daily as of today. pt advocating high-dose benzo as Tx for his AH. MD educates pt on appropriate psychopharmacologic intervention for psychosis. increase gabapentin to 900 TID for foot pain. otherwise continue current mgmt. 01/28: Changed timing of administration of Klonopin to AM, 12 and dinner time. Continue current management and treatment plan. 01/29: Intermittent compliance. Refusing Seroquel. Reason for continued inpatient stay Substantial Risk for: inability to function and rapid decompensation Time Spent With Patient Time: Total time managing care of this patient today ____ minutes.
[2025-01-29 20:00] VITALS: RESP 18
--- NOTE | 2025-01-30 01:40 | PC.NURSE ---
Pt was approached in bed with airam yang and he stated I will take them later . I told him that it was late and he should take them now. He stated in a louder voice, I will take them when I am ready! .
[2025-01-30] MEDS: methADONE HCl 20 MG/2 ML ORAL.CONC 170 MG PO (07:54)
[2025-01-30] MEDS: CLONAZEPAM 1.5 MG PO (08:31)
--- NOTE | 2025-01-30 16:11 | HO.PSYCHPN ---
Subjective Subjective Date of Service: 01/30/25 Reason For Visit: SI/ agitation Interim History: sedated, rousable. food scattered over bed. remains committed to using benzos to treat psychosis. MD informs him benzos to be lowered and low-dose seroquel to be DCed in favor of moderate dose zyprexa. pt not happy. per staff, constricted, avoidant. refusing HS meds. pleasant. slept about 10 hours. Mental Status Exam Mental Status Exam Narrative: Appearance: wearing hospital attire, poor hygiene Behavior: cooperative Psychomotor: not pacing today Speech: mostly clear, normal rate/rhythm/volume, spontaneous TP: linear TC: benzo withdrawal, dissatisfaction with medication changes Mood: anxious Affect: constricted, hypo-intense, non-labile SI: none expressed HI: none expressed VH: none expressed AH: none expressed Delusions: MD part of cult to not prescribe benzos Insight/judgment: impaired x 2. Memory/cog: alert, oriented x 3. Diagnostics Vital Signs (24Hr): Vital Signs - 24 hr 01/29/25 20:00 Respiratory Rate 18 BMI result Body Mass Index 23.1 Labs 01/20/25 22:05 01/20/25 22:05 Medications Medications Current Medications Acetaminophen (Acetaminophen 325 Mg Tablet) 650 mg PO Q6H PRN PRN Reason: Headache/Pain, Scale 1-10 Al Hydroxide/Mg Hydroxide (Magnesium Hydrox/Alum Hydrox 30 Ml Oral.Susp) 30 ml PO Q6H PRN PRN Reason: Heartburn/Nausea Clonazepam (Clonazepam 1 Mg Tablet) 1 mg PO TID [facility] Last Admin: 01/30/25 14:45 Dose: 1 mg Gabapentin (Gabapentin 300 Mg Capsule) 900 mg PO TID [facility] Last Admin: 01/30/25 14:44 Dose: 900 mg Hydroxyzine HCl (Hydroxyzine Hcl 25 Mg Tablet) 25 mg PO Q6H PRN PRN Reason: mild anxiety Magnesium Hydroxide (Milk Of Magnesia 30 Ml Oral.Susp) 30 ml PO DAILY PRN PRN Reason: Constipation Methadone HCl (Methadone Hcl 20 Mg/2 Ml Oral.Conc) 170 mg PO DAILY [facility] Last Admin: 01/30/25 07:54 Dose: 170 mg Nicotine Polacrilex (Nicotine Polacrilex 2 Mg Gum) 4 mg BUCCAL Q2H PRN PRN Reason: Nicotine Cravings Last Admin: 01/30/25 14:48 Dose: 4 mg Olanzapine (Olanzapine 10 Mg Tablet) 30 mg PO BEDTIME [facility] Trazodone HCl (Trazodone Hcl 50 Mg Tablet) 50 mg PO BEDTIME MRX1 PRN PRN Reason: Insomnia Allergies Allergies Allergy/AdvReac Type Severity Reaction Status Date / Time haloperidol (From Haldol) AdvReac Severe tongue Verified 01/20/25 18:27 swelling Assessment & Plan Assessment & Plan (1) Chronic schizophrenia: Status: Acute Code(s): F20.9 - Schizophrenia, unspecified Plan 01/23: DC stimulant. decrease klonopin from 2 TID PRN to 1.5 TID PRN for safety. continue methadone 170 mg daily. increase gabapentin 400 TID to 600 TID for neuropathic pain. DC olanzapine and start seroquel 200 QHS per pt request re anti-psychotic. T/C anti-depressant medication as pt c/o depression with SI. 01/24: med rec reviewed, it was noted pt's most recent klonopin script was for only 4 mg per day, not the 6 mg daily pt has been asserting. appears perhaps overmedicated today, but MD agrees to leave medications where they are for another day for observation of trend. pt reports SI has resolved and AH continue but abated. outpt prescriber identified as umu sandoval. 01/25: appears overmedicated. pt informed of new info re klonopin script. lower klonopin to 1 TID PRN. increase gabapentin to 800 TID for nerve pain. otherwise continue current mgmt. 01/26: appears less overmedicated, pacing the halls constantly. pulse now mildly tachycardic, BPs WNL but higher than before. monitor for benzo withdrawal. foot pain improving, slept well last night. reticent to increase seroquel or change anti-psychotics, but ultimately agrees to increase from 200 QHS to 250 QHS. otherwise continue current mgmt. 01/27: c/o sweating and shaking episode last night, believes he is in klonopin withdrawal. got an extra mg last night, increased dosing from 3 mg daily up to 4 mg daily as of today. pt advocating high-dose benzo as Tx for his AH. educates pt on appropriate psychopharmacologic intervention for psychosis. increase gabapentin to 900 TID for foot pain. otherwise continue current mgmt. 01/28: Changed timing of administration of Klonopin to AM, 12 and dinner time. Continue current management and treatment plan. 01/29: Intermittent compliance. Refusing Seroquel. 01/30: decrease klonopin to 1 mg TID. DC seroquel, restart zyprexa at HS at 30 mg. pt signed 3-day notice. continue current mgmt otherwise for now. Reason for continued inpatient stay Substantial Risk for: inability to function and rapid decompensation Time Spent With Patient Time: Total time managing care of this patient today __25__ minutes.
[2025-01-31] MEDS: methADONE HCl 20 MG/2 ML ORAL.CONC 170 MG PO (08:40)
--- NOTE | 2025-01-31 15:35 | P.PNPSI_ITS ---
Subjective Subjective Date of Service: 01/31/25 Reason For Visit: SI/ agitation Interim History: pt pacing the hills for half the day. declines to stop to meet with MD. tolerates MD's walking beside him for a couple minutes. MD notes his 3-day notice and indicates plan was to discharge him tomorrow. pt is unmoved and expresses no interest in discussing with MD. 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 3-day up 02/02. refusing robert/night meds. slept 7 hours. Mental Status Exam Mental Status Exam Narrative: Appearance: wearing hospital attire, poor hygiene Behavior: not cooperative Psychomotor: some pacing today Speech: mostly clear, normal rate/rhythm/volume, spontaneous TP: linear TC: doesn't want to speak with MD Mood: not assessed Affect: constricted, hypo-intense, non-labile SI: none expressed HI: none expressed VH: none expressed AH: none expressed Insight/judgment: impaired x 2. Memory/cog: alert, oriented x 3. Diagnostics Vital Signs (24Hr): BMI result Body Mass Index 23.1 Labs 01/20/25 22:05 01/20/25 22:05 Medications Medications Current Medications Acetaminophen (Acetaminophen 325 Mg Tablet) 650 mg PO Q6H PRN PRN Reason: Headache/Pain, Scale 1-10 Al Hydroxide/Mg Hydroxide (Magnesium Hydrox/Alum Hydrox 30 Ml Oral.Susp) 30 ml PO Q6H PRN PRN Reason: Heartburn/Nausea Clonazepam (Clonazepam 1 Mg Tablet) 1 mg PO TID [facility] Last Admin: 01/31/25 15:07 Dose: 1 mg Gabapentin (Gabapentin 300 Mg Capsule) 900 mg PO TID [facility] Last Admin: 01/31/25 15:08 Dose: 900 mg Hydroxyzine HCl (Hydroxyzine Hcl 25 Mg Tablet) 25 mg PO Q6H PRN PRN Reason: mild anxiety Magnesium Hydroxide (Milk Of Magnesia 30 Ml Oral.Susp) 30 ml PO DAILY PRN PRN Reason: Constipation Methadone HCl (Methadone Hcl 20 Mg/2 Ml Oral.Conc) 170 mg PO DAILY [facility] Last Admin: 01/31/25 08:40 Dose: 170 mg Nicotine Polacrilex (Nicotine Polacrilex 2 Mg Gum) 4 mg BUCCAL Q2H PRN PRN Reason: Nicotine Cravings Last Admin: 01/31/25 10:25 Dose: 4 mg Olanzapine (Olanzapine 10 Mg Tablet) 30 mg PO BEDTIME [facility] Last Admin: 01/30/25 21:54 Dose: Not Given Trazodone HCl (Trazodone Hcl 50 Mg Tablet) 50 mg PO BEDTIME MRX1 PRN PRN Reason: Insomnia Allergies Allergies Allergy/AdvReac Type Severity Reaction Status Date / Time haloperidol (From Haldol) AdvReac Severe tongue Verified 01/20/25 18:27 swelling Assessment & Plan Assessment & Plan (1) Chronic schizophrenia: Status: Acute Code(s): F20.9 - Schizophrenia, unspecified Plan 01/23: DC stimulant. decrease klonopin from 2 TID PRN to 1.5 TID PRN for safety. continue methadone 170 mg daily. increase gabapentin 400 TID to 600 TID for neuropathic pain. DC olanzapine and start seroquel 200 QHS per pt request re anti-psychotic. T/C anti-depressant medication as pt c/o depression with SI. 01/24: med rec reviewed, it was noted pt's most recent klonopin script was for only 4 mg per day, not the 6 mg daily pt has been asserting. appears perhaps overmedicated today, but MD agrees to leave medications where they are for another day for observation of trend. pt reports SI has resolved and AH continue but abated. outpt prescriber identified as umu sandoval. 01/25: appears overmedicated. pt informed of new info re klonopin script. lower klonopin to 1 TID PRN. increase gabapentin to 800 TID for nerve pain. otherwise continue current mgmt. 01/26: appears less overmedicated, pacing the halls constantly. pulse now mildly tachycardic, BPs WNL but higher than before. monitor for benzo withdrawal. foot pain improving, slept well last night. reticent to increase seroquel or change anti-psychotics, but ultimately agrees to increase from 200 QHS to 250 QHS. otherwise continue current mgmt. 01/27: c/o sweating and shaking episode last night, believes he is in klonopin withdrawal. got an extra mg last night, increased dosing from 3 mg daily up to 4 mg daily as of today. pt advocating high-dose benzo as Tx for his AH. educates pt on appropriate psychopharmacologic intervention for psychosis. increase gabapentin to 900 TID for foot pain. otherwise continue current mgmt. 01/28: Changed timing of administration of Klonopin to AM, 12 and dinner time. Continue current management and treatment plan. 01/29: Intermittent compliance. Refusing Seroquel. 01/30: decrease klonopin to 1 mg TID. DC seroquel, restart zyprexa at HS at 30 mg. pt signed 3-day notice. continue current mgmt otherwise for now. 01/31: pt refusing robert meds. refusing to speak with MD today. informed of plan to discharge tomorrow, no response. divide meds equally TID to increase likelihood pt takes some anti-psychotic. Reason for continued inpatient stay Substantial Risk for: inability to function and med/psych decompensation Time Spent With Patient Time: Total time managing care of this patient today __25__ minutes.
[2025-01-31 20:00] VITALS: RESP 16
[2025-02-01] MEDS: methADONE HCl 20 MG/2 ML ORAL.CONC 170 MG PO (08:05)
--- NOTE | 2025-02-01 10:21 | P.DS_ITS ---
DS: Providers Provider Date of Service: 02/01/25 Date of admission: 01/23/25 12:34 Date of discharge: 02/01/25 Primary care physician: None Physician Consults: 01/24/25 20:45 Consult to Hospitalist Routine Comment: Consulting Provider: [facility] Reason For Exam: neck pain 01/26/25 23:48 Consult to Hospitalist Routine Comment: Consulting Provider: [facility] Reason For Exam: inc tremor agitation confusion ?withdrawl ? osteom DS: Diagnosis Discharge Diagnosis (1) Chronic schizophrenia: Status: Acute DS: Medications Discharge Medications Home Medications: Home Medications ?Medication ?Instructions ?Recorded ?Confirmed methadone 10 mg/mL oral 170 mg PO DAILY 01/21/25 concentrate (Methadone Intensol) nicotine (polacrilex) 2 mg gum 2 mg buccal Q2H 5 01/21/25 olanzapine 20 mg tablet 20 mg PO BEDTIME psychosis 0 01/21/25 01/21/25 Previous Rx's ?Medication ?Instructions ?Recorded clonazepam 1 mg tablet 1 mg PO TID 7 days #21 tabs 02/01/25 gabapentin 300 mg capsule 900 mg (3 x 300 mg) PO TID 7 days 02/01/25 #63 caps naloxone 4 mg/actuation nasal 4 mg intranasal Q2M PRN opioid 02/01/25 spray (Narcan) overdose 1 day #2 ea Mental Status Exam Mental Status Exam Narrative: Appearance: wearing hospital attire, poor hygiene Behavior: not cooperative Psychomotor: some pacing today Speech: selectively mute TP: linear TC: doesn't want to speak with MD Mood: refused to answer Affect: constricted, hypo-intense, non-labile SI: refused to answer HI: refused to answer VH: refused to answer AH: refused to answer Insight/judgment: impaired x 2. Memory/cog: alert, oriented x 3. Data Data Completed and Pending Completed studies during hospitalization [Text1]: 01/26/25 23:19 POC Glucose 89 DS: Summary Hospital Course Hospital Course: per 01/23 admission note: HPI Narrative: per CARE team fior pt self-presented to [facility] ED with c/o AH, SI, and lack of medications. pt reports in recent days his AH of baseline have worsened, he has been isolating and pacing a lot in the house. pt reports that his mother encouraged him to come to the hospital, as she was concerned about his presentation. pt was observed int he ED pacing and self-dialoguing. he endorsed low mod and SI. on interview with MD, pt endorses AH and SI, noting as his most formidable problem his depression. he is also quite concerned about anxiety and MD's stated plan to taper down on klonopin. MD explains rationale for holding stimulant for now. pt expresses ambivalence re taking zyprexa, indicating he does not take it regularly. he is more enthusiastic about seroquel, so MD agrees to change neuroleptic to seroquel. pt denies use of any substances aside from methadone and cigarettes. complete psychiatric interview completed, interval history updated. Past Psychiatric History: hosps: reports 5-10 prior. SA: denies. says [place] was [place] once for a while but got up and left before a train came. CARE team eval indicates attempted heroin overdose in 2021. SIB: reports h/o putting cigarettes out on his arms, can't explain his intent. outpt: reports he is seen at [facility]. Medical Evaluation Reviewed: Yes COUNTS INCLUDE 234 BEDS AT THE [facility] Medical History Avascular necrosis of bones of both hips Cellulitis of left foot Cellulitis of foot, right Schizophrenia, paranoid, chronic with acute exacerbation Foot osteomyelitis, left Routine medical exam Cellulitis of great toe, left Peripheral neuropathy History of intravenous drug abuse Opiate dependence Family History: denies. records indicate a sister with schizophrenia who was on zyprexa. Social History: lives with mother Substance History: tobacco - 1-2 ppd alcohol - denies use cannabis - denies use opioids - sober 3 years on methadone maintenance 170 mg daily. denies use of other substances. Trauma History: reports h/o feeling a group of people were pursuing him to kill him and that they took my soulmate away from me. Precis: 01/23: DC stimulant. decrease klonopin from 2 TID PRN to 1.5 TID PRN for safety. continue methadone 170 mg daily. increase gabapentin 400 TID to 600 TID for neuropathic pain. DC olanzapine and start seroquel 200 QHS per pt request re anti-psychotic. T/C anti-depressant medication as pt c/o depression with SI. 01/24: med rec reviewed, it was noted pt's most recent klonopin script was for only 4 mg per day, not the 6 mg daily pt has been asserting. appears perhaps overmedicated today, but MD agrees to leave medications where they are for another day for observation of trend. pt reports SI has resolved and AH continue but abated. outpt prescriber identified as umu sandoval. 01/25: appears overmedicated. pt informed of new info re klonopin script. lower klonopin to 1 TID PRN. increase gabapentin to 800 TID for nerve pain. otherwise continue current mgmt. 01/26: appears less overmedicated, pacing the halls constantly. pulse now mildly tachycardic, BPs WNL but higher than before. monitor for benzo withdrawal. foot pain improving, slept well last night. reticent to increase seroquel or change anti-psychotics, but ultimately agrees to increase from 200 QHS to 250 QHS. otherwise continue current mgmt. 01/27: c/o sweating and shaking episode last night, believes he is in klonopin withdrawal. got an extra mg last night, MD increased dosing from 3 mg daily up to 4 mg daily as of today. pt advocating high-dose benzo as Tx for his AH. MD educates pt on appropriate psychopharmacologic intervention for psychosis. increase gabapentin to 900 TID for foot pain. otherwise continue current mgmt. 01/28: Changed timing of administration of Klonopin to AM, 12 and dinner time. Continue current management and treatment plan. 01/29: Intermittent compliance. Refusing Seroquel. 01/30: decrease klonopin to 1 mg TID. DC seroquel, restart zyprexa at HS at 30 mg. pt signed 3-day notice. continue current mgmt otherwise for now. 01/31: pt refusing robert meds. refusing to speak with MD today. informed of plan to discharge tomorrow, no response. divide meds equally TID to increase likelihood pt takes some anti-psychotic. 02/01: pt refusing zyprexa, taking benzos. selectively mute today. does write out pharmacy he wants scripts sent to, declines to answer any other questions. discharge under 3-day notice with 1 week of new scripts. pt given instructions to walk-in at [facility] clinic in [facility]. Time Spent with Patient Time attestation: Total time managing care of this patient today __35__ minutes. Discharge Plan Discharge Anticipated Discharge Date/Time: 02/01/25 10:15 Patient Disposition: Home, Self-Care Discharge Diagnosis: Schizophrenia, Paranoid Type Opioid Use Disorder Benzodiazepine Use Disorder Referrals: Therapy & Psychiatry [Other] - 1 Week Referral Note: *You can present to the clinic above, Thursday through Thursday during the hours of 8am and 8pm, in order to obtain outpatient mental health providers. Department of Mental Health ([facility]) [Other] - 1 Week Referral Note: *You have been assigned to work with Kathe Barnes as a corrections caseworker. Please reach out to [facility] to connect with your assigned worker. [facility] [Provider Group] - 1 Week Referral Note: walk in Thursday through Thursday, 8:30 to 4:00. 02-01-25 [facility] was added to patients chart. Please call [phone] to schedule a follow up appt within 7-10 days of discharge. Discharge Medications: New clonazepam 1 mg Tablet 1 mg PO TID 7 Days Qty: 21 0RF gabapentin 300 mg Capsule 900 mg PO TID 7 Days Qty: 63 0RF naloxone [Narcan] 4 mg/actuation spray,non-aerosol 4 mg intranasal Q2M PRN (Reason: opioid overdose) 1 Days Qty: 2 0RF Rx Instructions: spray 1 dose into ONE nostril; alternate nostrils w each dose until help arrives Continued methadone [Methadone Intensol] 10 mg/mL Concentrate 170 mg PO DAILY nicotine (polacrilex) 2 mg Gum 2 mg BUCCAL Q2H olanzapine 20 mg tablet 20 mg PO BEDTIME Discontinued clonazepam 2 mg tablet 2 mg PO TID PRN (Reason: tiffany) dextroamphetamine-amphetamine [Adderall XR] 5 mg capsule,extended release 24hr 1 cap PO DAILY Discharge Orders: Discharge Order (Routine); Ordered 02/01/25 Ordered By: Ben Carvajal Diet: Advance to usual diet Activity on Discharge: As tolerated Stand Alone Forms: Patient Portal Discharge page, Community Support Print Language: Faroese Care Plan Goals: achieve stability and sobriety in the outpatient treatment setting. Health Concerns: chronic neuropathic pain Plan of Treatment: attend the [facility] walk-in clinic in [place], [place], at your earliest convenience to engage in mental health and substance abuse services. continue benzodiazepine taper with outpatient providers. identify an anti-psychotic medication which is tolerable to you to treat your Schizophrenia. Assessment: not at imminent risk of intentional harm to self or others. at risk of substance withdrawal and associated medical problems if suddenly stops klonopin or gabapentin. declined to remain inpatient for continued klonopin taper. Discharge Date/Time: 02/01/25 11:23
== END 2025-02-01 11:23 | disposition home or self-care (01) | DRG 750 ==
LOC: HO.ED 23:36 → HO.PADLT16 01-23 12:34
PROVIDERS: Physician Assistant; Admitting Provider Psychiatry & Neurology Psychiatry; Emergency Provider Emergency Medicine Emergency Medical Services; Visit Provider Psychiatry & Neurology Psychiatry
DX: F20.0 Paranoid schizophrenia (principal); R45.851 Suicidal ideations; F11.20 Opioid dependence, uncomplicated; F17.210 Nicotine dependence, cigarettes, uncomplicated; Z71.6 Tobacco abuse counseling; F13.90 Sedative, hypnotic, or anxiolytic use, unspecified, uncomplicated; M54.2 Cervicalgia; Z91.52 Personal history of nonsuicidal self-harm; Z79.899 Other long term (current) drug therapy
CPT/HCPCS: 36415; 80048; 80076; 80307; 81001; 81003; 82947; 83735; 85025; 93005; 99285; S9485

== ENCOUNTER → 2025-01-23 08:02 | Outpatient (BNV) | payer OTHER, SELFPAY | PROVIDERS: Admitting Provider Psychiatry & Neurology Psychiatry; Emergency Provider Emergency Medicine Emergency Medical Services; Visit Provider Internal Medicine | DX: Z13.6 Encounter for screening for cardiovascular disorders (principal) | CPT/HCPCS: 93010 ==

== ENCOUNTER → 2025-01-23 12:34 | Outpatient (BNV) | payer OTHER, SELFPAY | PROVIDERS: Admitting Provider Psychiatry & Neurology Psychiatry; Emergency Provider Emergency Medicine Emergency Medical Services; Visit Provider Psychiatry & Neurology Psychiatry | DX: F20.0 Paranoid schizophrenia (principal); R45.851 Suicidal ideations; M54.2 Cervicalgia | CPT/HCPCS: 90792; 99231; 99232 ==

== ENCOUNTER → 2025-01-23 12:34 | Outpatient (BNV) | payer OTHER, SELFPAY | PROVIDERS: Admitting Provider Psychiatry & Neurology Psychiatry; Emergency Provider Emergency Medicine Emergency Medical Services; Visit Provider Nurse Practitioner Family | DX: M54.2 Cervicalgia (principal) | CPT/HCPCS: 99222; 99499 ==